=== PATIENT | female | born 1950 | race African-American/Black ===

== ENCOUNTER 2016-02-26 20:58 | Emergency (ER) | payer OTHER ==
[~2016-02-26] VITALS: Ht 149.9 cm; Wt 48.0 kg
[~2016-02-26 20:58] MED LIST: ADVA100A INH; ALBU6.7H INH; ALBUAER3 INH; AMLO2.5T PO; ASPI1TAB69 PO; ASPI81CH37 CHEW; AZIT500T2 PO; DIGO0.12 PO; DIGO0.25 PO; HYDR-3533 PO; IPRAAER INH; LANTINJ SQ; LANTUS2P SQ; LISI-515 PO; MEDR4PAK PO; PANT20 PO; PRED20 PO; SIMV20TA PO; VALT1TAB PO
[2016-02-26 21:01] VITALS: RESP 28; O2SAT 88
[2016-02-26] MEDS ORDERED: methylPREDNISolone SOD SUCC 125 MG/2 ML VIAL IVP ONE (21:15)
[2016-02-26] MEDS ORDERED: SODIUM CHLORIDE 0.9% FLUSH 5 ML FLUSH IVF PRN (21:15)
--- NOTE | 2016-02-26 21:15 | PD ---
HPI Chief Complaint: Respiratory Symptoms Time Seen by Provider: 21:10 Travel History International Travel<30 days: No Contact w/Intl Traveler<30days: No Traveled to known affect area: No History of Present Illness HPI 65-year-old Afro-[place] female long-standing COPD continues to smoke, presents the emergency department with repeat increased shortness of breath and wheezing over the past several days. Patient was last seen on January 31 and treated with prednisone, of-year-old inhaler, and azithromycin. Patient denies fever, chills, chest pain, or productive cough. Patient states she has a nebulizer at home that she's been using more frequently. Patient has a history of atrial fibrillation for which she takes digoxin for. Patient denies nausea, vomiting, or upper respiratory symptoms. PFSH Past Medical History Hx Anticoagulant Therapy: Yes (ASA) Arthritis: Yes Asthma: No Autoimmune Disease: No Blood Disorders: No Anxiety: No Depression: No Heart Rhythm Problems: Yes Cancer: No Cardiovascular Problems: Yes (HTN) High Cholesterol: Yes Chemotherapy: No Chest Pain: Yes Congestive Heart Failure: No COPD: Yes Cerebrovascular Accident: No Coronary Artery Disease: Yes Diabetes: Yes Diminished Hearing: No Endocrine: Yes Gastrointestinal Disorders: Yes (OCCASIONAL NAUSEA/VOMITING) GERD: Yes Genitourinary: No Headaches: Yes Hiatal Hernia: No Hypertension: Yes Immune Disorder: No Implanted Vascular Access Dvce: Yes Kidney Stones: No Musculoskeletal: Yes (ARTHRITIS/LEFT HIP VASCULAR NECROSIS) Neurologic: Yes Psychiatric: No Reproductive: No Respiratory: Yes (COPD) Immunizations Current: No Migraines: No Pneumonia: Yes Radiation Therapy: No Renal Failure: No Seizures: No Sleep Apnea: Yes Thyroid Disease: No Ulcer: No ?: Not Menopausal: Yes : 3 Para: 3 Miscarriage: 0 : 0 Past Surgical History Abdominal Surgery: No AICD: No Arteriovenous Shunt: No Cardiac Surgery: No Section: Yes Ear Surgery: No Endocrine Surgery: No Eye Surgery: No Genitourinary Surgery: No Gynecologic Surgery: Yes (cycst removed) Hysterectomy: Yes (HTN) Insulin Pump: No Joint Replacement: Yes (LEFT HIP) Oral Surgery: No Pacemaker: No Thoracic Surgery: Yes Other Surgery: Yes (LEFT HIP REPLACEMENT, LIGAMENTS IN FINGER, R CHEST TUBE ) Family History Family Hypercholesterolemia: Yes Social History Alcohol Use: No Tobacco Use: Yes (1/2 pack a day) Substance Use: No Allergies-Medications (Allergen,Severity, Reaction): Coded Allergies: Hctz (Verified Adverse Reaction, Mild, Nausea and Malaise, 02/26/16) Pt does not want to take Reported Meds & Prescriptions Reported Meds & Active Scripts Active Prednisone 20 Mg Tab 20 Mg PO BID Albuterol Neb (Albuterol Sulfate) 2.5 Mg/0.5 Ml Neb 2.5 Mg NEB QID NEB Note: The Albuterol Sulfate Inhalation Solution is concentrated and must be diluted. Read complete instructions carefully before using. Ipratropium Neb (Ipratropium [place]) 0.5 Mg/2.5 Ml Amp 0.5 Mg NEB Q6HR NEB PRN Azithromycin 500 Mg Tab 500 Mg PO DAILY Lortab (Hydrocodone-Acetaminophen) 5-325 Mg Tab 1 Tab PO Q6H PRN Reported Simvastatin 20 Mg Tab 20 Mg PO DAILY Protonix (Pantoprazole Sodium) 20 Mg Tab 20 Mg PO DAILY Lisinopril 20 Mg Tab 20 Mg PO DAILY Lantus Solostar Pen Inj (Insulin Glargine) 300 Unit/3 Ml Pen 1 Units SQ Digoxin 0.25 Mg Tab 0.25 Mg PO DAILY Combivent Respimat Inh (Ipratropium-Albuterol Inh) 20-100 Custodial/Act Aero 1 Puff INH QID Aspirin Low Dose (Aspirin) 81 Mg Chew 81 Mg CHEW DAILY Proventil Hfa 6.7 GM Inh (Albuterol Sulfate) 90 Mcg/Act Aer 2 Puff INH Q6H PRN Advair Diskus Inh (Fluticasone-Salmeterol Inh) 100-50 Mcg/Blist Aer 1 Puff INH BID Rinse mouth after use. Amlodipine (Amlodipine Besylate) 2.5 Mg Tab 2.5 Mg PO DAILY Lantus Inj (Insulin Glargine) 1,000 Unit/10 Ml Vial 10 Units SQ HS Review of Systems General / Constitutional: No: Fever, Chills Eyes: No: Visual changes HENT: No: Headaches Cardiovascular: No: Chest Pain or Discomfort Respiratory: No: Shortness of Breath Gastrointestinal: No: Abdominal Pain Genitourinary: No: Dysuria Musculoskeletal: No: Pain Skin: No Rash Neurologic: No: Weakness Psychiatric: No: Depression Endocrine: No: Polydipsia Hematologic/Lymphatic: No: Easy Bruising Physical Exam Narrative GENERAL: Patient appears in mild to moderate respiratory distress. SKIN: Warm and dry. Normal color. Mild poor turgor. HEAD: Atraumatic. Normocephalic. EYES: Pupils equal and round. No scleral icterus. No injection or drainage. ENT: No nasal bleeding or discharge. Mucous membranes pink and moist. Pharynx is clear. Airway is patent. NECK: Trachea midline. No JVD. Supple and nontender. CARDIOVASCULAR: Regular rate and rhythm. No murmurs appreciated. RESPIRATORY: No accessory muscle use. Moderate diffuse expiratory wheezes to auscultation. Breath sounds equal bilaterally. GASTROINTESTINAL: Abdomen soft, non-tender, nondistended. Hepatic and splenic margins not palpable. MUSCULOSKELETAL: Extremities without clubbing, cyanosis, or edema. No obvious deformities. NEUROLOGICAL: Awake and alert. No obvious cranial nerve deficits. Motor grossly within normal limits. Five out of 5 muscle strength in the arms and legs. Normal speech. PSYCHIATRIC: Appropriate mood and affect; insight and judgment normal. Data Data Last Documented VS Vital Signs Date Time Temp Pulse Resp B/P Pulse Ox O2 Delivery O2 Flow Rate FiO2 02/26/16 21:43 18 97 Aerosol Mask Orders Complete Blood Count With Diff (02/26/16 21:15) Comprehensive Metabolic Panel (02/26/16 21:15) Act Partial Throm Time (Ptt) (02/26/16 21:15) Prothrombin Time / Inr (Pt) (02/26/16 21:15) Ckmb (Isoenzyme) Profile (02/26/16 21:15) Troponin I (02/26/16 21:15) Iv Access Insert/Monitor (02/26/16 21:15) Electrocardiogram (02/26/16 21:15) Ecg Monitoring (02/26/16 21:15) Oximetry (02/26/16 21:15) Oxygen Administration (02/26/16 21:15) Chest, Single Ap (02/26/16 21:15) Sodium Chloride 0.9% Flush (Ns Flush) (02/26/16 21:15) Methylprednisolone So Succ Inj (Solumedr (02/26/16 21:15) Albuterol-Ipratropium Neb (Duoneb Neb) (02/26/16 21:15) Digoxin (02/26/16 21:15) Azithromycin (Zithromax) (02/27/16 09:00) Azithromycin (Zithromax) (02/26/16 22:30) CKMB (02/26/16 21:20) CKMB% (02/26/16 21:20) Labs Laboratory Tests Test 02/26/16 21:20 White Blood Count 8.2 TH/MM3 Red Blood Count 4.24 MIL/MM3 Hemoglobin 11.8 GM/DL Hematocrit 36.8 % Mean Corpuscular Volume 86.8 FL Mean Corpuscular Hemoglobin 27.8 PG Mean Corpuscular Hemoglobin 32.1 % Concent Red Cell Distribution Width 16.2 % Platelet Count 379 TH/MM3 Mean Platelet Volume 9.7 FL Neutrophils (%) (Auto) 57.4 % Lymphocytes (%) (Auto) 24.1 % Monocytes (%) (Auto) 9.0 % Eosinophils (%) (Auto) 8.6 % Basophils (%) (Auto) 0.9 % Neutrophils # (Auto) 4.7 TH/MM3 Lymphocytes # (Auto) 2.0 TH/MM3 Monocytes # (Auto) 0.7 TH/MM3 Eosinophils # (Auto) 0.7 TH/MM3 Basophils # (Auto) 0.1 TH/MM3 CBC Comment DIFF FINAL Differential Comment Prothrombin Time 10.2 SEC Prothromb Time International 0.9 RATIO Ratio Activated Partial 23.6 SEC Thromboplast Time Sodium Level 142 MEQ/L Potassium Level 3.9 MEQ/L Chloride Level 104 MEQ/L Carbon Dioxide Level 31.5 MEQ/L Anion Gap 7 MEQ/L Blood Urea Nitrogen 10 MG/DL Creatinine 0.82 MG/DL Estimat Glomerular Filtration 85 ML/MIN Rate Random Glucose 113 MG/DL Calcium Level 9.2 MG/DL Total Bilirubin 0.2 MG/DL Aspartate Amino Transf 15 U/L (AST/SGOT) Alanine Aminotransferase 23 U/L (ALT/SGPT) Alkaline Phosphatase 96 U/L Total Creatine Kinase 150 U/L Creatine Kinase MB 1.8 NG/ML Troponin I LESS THAN 0.02 NG/ML Total Protein 7.5 GM/DL Albumin 4.0 GM/DL Digoxin Level 0.6 NG/ML MDM Medical Decision Making Medical Screen Exam Complete: Yes Emergency Medical Condition: Yes Differential Diagnosis Bronchitis. Pneumonia. COPD flare with exacerbation. Wheezing. Shortness of breath. Narrative Course Patient is felt to be in mild to moderate respiratory distress although oxygenating at 97%. Labs ordered including CBC, CMP, chest x-ray, digoxin level. EKG is performed. IV access is obtained patient is given 125 mg of slight Medrol IV. Patient is given DuoNeb 3. Patient is given azithromycin 500 mg by mouth. Labs and chest x-ray are unremarkable. Digoxin level somewhat low. EKG shows no acute findings. Upon reevaluation after the above the patient is improved. Breath sounds are improved, and oxygenation is 98% on room air. Patient is stable to be discharged home. Patient is given prescription for prednisone 20 mg twice a day 7 days. Patient is given refills of her albuterol and ipratropium bromide nebulizers. Patient is to take azithromycin 500 mg once daily for the next 3 days. Patient is encouraged to quit smoking immediately. Patient follow with her primary care physician or return to emergency Department with worsening symptoms. Diagnosis Primary Impression: COPD exacerbation Additional Impression: Acute bronchitis Qualified Code: J20.9 - Acute bronchitis, unspecified organism Referrals: Primary Care Physician Patient Instructions: COPD (Chronic Obstructive Pulmonary Disease) (ED), General Instructions, How to Stop Smoking (ED) Additional Instructions: Patient is stable to be discharged home. Patient is given prescription for prednisone 20 mg twice a day 7 days. Patient is given refills of her albuterol and ipratropium bromide nebulizers. Patient is to take azithromycin 500 mg once daily for the next 3 days. Patient is encouraged to quit smoking immediately. Patient follow with her primary care physician or return to emergency Department with worsening symptoms. Med/Other Pt SpecificInfo: Prescription(s) given Scripts Prednisone 20 Mg Tab20 Mg PO BID #14 TAB Prov:Delphine Kirkpatrick MD 02/26/16 Albuterol Neb 2.5 Mg/0.5 Ml Neb2.5 Mg NEB QID NEB #120 NEBULE Ref 0 Note: The Albuterol Sulfate Inhalation Solution is concentrated and must be diluted. Read complete instructions carefully before using. Prov:Delphine Kirkpatrick MD 02/26/16 Ipratropium Neb 0.5 Mg/2.5 Ml Amp0.5 Mg NEB Q6HR NEB PRN (SHORTNESS OF BREATH) # 120 NEBULE Ref 0 Prov:Delphine Kirkpatrick MD 02/26/16 Azithromycin 500 Mg [id number] Mg PO DAILY #3 TAB Ref 0 Prov:Delphine Kirkpatrick MD 02/26/16 Disposition: 01 DISCHARGE HOME Condition: Stable Vasile Rodriguez Feb 26, 2016 21:14
[2016-02-26] MEDS: RESP: ALBUTEROL 2.5 MG/IPRATROPIUM 0.5 MG NEB (SCH) INH ×2 (21:27→21:28)
[2016-02-26 21:43] VITALS: RESP 18; O2SAT 97
--- NOTE | 2016-02-26 21:59 | RADRPT ---
EXAM DATE/TIME: 02/26/2016 21:45 [facility] COMPARISON: CHEST SINGLE AP, February 02, 2016, 0:46. INDICATIONS : Shortness of breath. MEDICAL HISTORY : Chronic obstructive pulmonary disease. Emphysema. Bronchitis. SURGICAL HISTORY : None. ENCOUNTER: Initial ACUITY: 2 days PAIN SCORE: 0/10 LOCATION: chest FINDINGS: A single view of the chest demonstrates the lungs to be symmetrically aerated without evidence of mas s, infiltrate or effusion. The lungs do appear hyperinflated. The cardiomediastinal contours are unr emarkable. Osseous structures are intact. CONCLUSION: No acute abnormality is seen. The lungs are hyperinflated. Wolf Acevedo MD on February 26, 2016 at 21:56 Board Certified Radiologist. This report was verified electronically.
[2016-02-26 22:00] LABS: APTT (PATIENT) 23.6 SEC (24.3-30.1); INTERNATIONAL NORMALIZED RATIO 0.9 RATIO; PROTHROMBIN TIME - PATIENT 10.2 SEC (9.8-11.6)
[2016-02-26 22:12] LABS: AUTOMATED NEUTROPHIL # 4.7 TH/MM3 (1.8-7.7); BASOPHIL # 0.1 TH/MM3 (0-0.2); BASOPHIL % 0.9 % (0.0-2.0); EOSINOPHIL # 0.7 TH/MM3 (0-0.4); EOSINOPHIL % 8.6 % (0.0-4.0); HEMATOCRIT 36.8 % (35.0-46.0); HEMO FLAGS DIFF FINAL; LYMPH % 24.1 % (9.0-44.0); MEAN CELL VOLUME 86.8 FL (80.0-100.0); MEAN CORPUSCULAR HEMOGLOBIN 27.8 PG (27.0-34.0); MEAN CORPUSCULAR HGB CONC 32.1 % (32.0-36.0); NEUT % 57.4 % (16.0-70.0); PLATELET COUNT 379 TH/MM3 (150-450); RED BLOOD COUNT 4.24 MIL/MM3 (4.00-5.30); RED CELL DISTRIBUTION WIDTH 16.2 % (11.6-17.2); WHITE BLOOD COUNT 8.2 TH/MM3 (4.0-11.0)
[2016-02-26 22:14] LABS: ANION GAP 7 MEQ/L (5-15); AST (GOT) 15 U/L (15-37); BICARBONATE 31.5 MEQ/L (21.0-32.0); BLOOD UREA NITROGEN 10 MG/DL (7-18); CHLORIDE 104 MEQ/L (98-107); GLOMERULAR FILTRATION RATE 85 ML/MIN (>89); POTASSIUM 3.9 MEQ/L (3.5-5.1); SODIUM (NA) 142 MEQ/L (136-145)
[2016-02-26 22:28] LABS: ALKALINE PHOSPHATASE 96 U/L (45-117); ALT (GPT) 23 U/L (10-53); CREATINE KINASE 150 U/L (26-192); DIGOXIN 0.6 NG/ML (0.8-2.0); TOTAL BILIRUBIN ADULT 0.2 MG/DL (0.2-1.0)
[2016-02-26] MEDS ORDERED: AZITHROMYCIN 250 MG TAB PO ONE (22:30)
[2016-02-26 22:41] LABS: CKMB 1.8 NG/ML (0.5-3.6)
[2016-02-26] MEDS ORDERED: AZIT500T2 PO (23:01)
[2016-02-26] MEDS ORDERED: IPRA0.02 NEB (23:01)
[2016-02-26] MEDS ORDERED: ALBU.5I NEB (23:01)
[2016-02-26] MEDS ORDERED: PRED20 PO (23:01)
[2016-02-27] MEDS ORDERED: AZITHROMYCIN 250 MG TAB PO SCH (09:00)
--- NOTE | 2016-02-27 14:22 | EKG ---
Date Performed: 02/26/2016 Time Performed: 22:12:03 PTAGE: 65 years EKG: SINUS TACHYCARDIA ABNORMAL RHYTHM ECG Compared to prior tracing no significant change PREVIOUS TRACING 02/02/2016 @02.20.21 DOCTOR: Bairon Capellan Interpretating Date/Time 02/27/2016 14:20:50
== END 2016-02-26 23:58 | disposition home or self-care (01) ==
LOC: NEPE 20:58
DX: J44.1 Chronic obstructive pulmonary disease with (acute) exacerbation (principal); J44.0 Chronic obstructive pulmonary disease with (acute) lower respiratory infection; J20.9 Acute bronchitis, unspecified; F17.200 Nicotine dependence, unspecified, uncomplicated; I48.91 Unspecified atrial fibrillation
CPT/HCPCS: 71010; 80053; 80162; 82550; 82552; 84484; 85025; 85610; 85730; 93005; 94640; 94664; 96374; 99284; J2930

== ENCOUNTER 2016-03-13 15:05 | Emergency (ER) | payer OTHER ==
[~2016-03-13] VITALS: Ht 165.1 cm; Wt 50.0 kg
[~2016-03-13 15:05] MED LIST changes: +ALBU.5I NEB; -ALBUAER3 INH; -ASPI1TAB69 PO; -DIGO0.12 PO; +IPRA0.02 NEB; -MEDR4PAK PO; -VALT1TAB PO
[2016-03-13 15:07] VITALS: BP 155/67; PULSE 108; RESP 16; TEMP 98; O2SAT 95
[2016-03-13 15:47] VITALS: BP 109/70; PULSE 101; RESP 20; O2SAT 97
[2016-03-13] MEDS ORDERED: SODIUM CHLORIDE 0.9% FLUSH 5 ML FLUSH IVF PRN (16:00)
[2016-03-13] MEDS: RESP: ALBUTEROL 2.5 MG/IPRATROPIUM 0.5 MG NEB (SCH) INH ×2 (16:00→16:43)
[2016-03-13] MEDS ORDERED: methylPREDNISolone SOD SUCC 125 MG/2 ML VIAL IVP ONE (16:00)
[2016-03-13 16:11] LABS: AUTOMATED NEUTROPHIL # 5.5 TH/MM3 (1.8-7.7); BASOPHIL # 0.1 TH/MM3 (0-0.2); BASOPHIL % 0.7 % (0.0-2.0); EOSINOPHIL # 0.3 TH/MM3 (0-0.4); HEMATOCRIT 34.9 % (35.0-46.0); HEMO FLAGS DIFF FINAL; LYMPH % 21.3 % (9.0-44.0); LYMPHOCYTE # 1.8 TH/MM3 (1.0-4.8); MEAN CELL VOLUME 85.2 FL (80.0-100.0); MEAN CORPUSCULAR HEMOGLOBIN 28.5 PG (27.0-34.0); MEAN CORPUSCULAR HGB CONC 33.5 % (32.0-36.0); MONO % 8.6 % (0.0-8.0); NEUT % 65.4 % (16.0-70.0); PLATELET COUNT 298 TH/MM3 (150-450); WHITE BLOOD COUNT 8.4 TH/MM3 (4.0-11.0)
[2016-03-13 16:25] VITALS: O2SAT 98
--- NOTE | 2016-03-13 16:32 | RADRPT ---
EXAM DATE/TIME: 03/13/2016 16:10 [facility] COMPARISON: CHEST SINGLE AP, February 26, 2016, 21:45. INDICATIONS : Short of breath MEDICAL HISTORY : Hypertension. Chronic obstructive pulmonary disease. Emphysema. Bronchitis SURGICAL HISTORY : None. ENCOUNTER: Initial ACUITY: 2 weeks PAIN SCORE: 0/10 LOCATION: Bilateral chest FINDINGS: A single view of the chest demonstrates the lungs to be symmetrically aerated without evidence of mas s, infiltrate or effusion. The cardiomediastinal contours are unremarkable. Osseous structures are intact. CONCLUSION: The lungs are clear. No evidence of pneumothorax. Alex Powell MD on March 13, 2016 at 16:30 Board Certified Radiologist. This report was verified electronically.
[2016-03-13 16:34] LABS: ALT (GPT) 23 U/L (10-53); ANION GAP 7 MEQ/L (5-15); AST (GOT) 13 U/L (15-37); BICARBONATE 29.3 MEQ/L (21.0-32.0); BLOOD UREA NITROGEN 9 MG/DL (7-18); CHLORIDE 103 MEQ/L (98-107); GLOMERULAR FILTRATION RATE 85 ML/MIN (>89); POTASSIUM 4.2 MEQ/L (3.5-5.1); SODIUM (NA) 139 MEQ/L (136-145)
[2016-03-13 16:38] LABS: ALKALINE PHOSPHATASE 91 U/L (45-117); TOTAL BILIRUBIN ADULT 0.2 MG/DL (0.2-1.0)
--- NOTE | 2016-03-13 16:51 | PD ---
HPI Chief Complaint: Respiratory Symptoms Time Seen by Provider: 16:48 Travel History International Travel<30 days: No Contact w/Intl Traveler<30days: No Traveled to known affect area: No History of Present Illness HPI 65-year-old female with a history of hypertension, hyperlipidemia, COPD who is still smoking presents to the emergency department for evaluation of shortness of breath for the past 3 days. States that she has been using her inhalers and nebulizers with minimal improvement of symptoms. States that she thinks the weather change is what is aggravated her symptoms. States that she just finished a round of steroids one week ago, states that her symptoms were improved while taking the steroids but seemed to have worsened after the steroids were finished. She does have a dry nonproductive cough. Denies fever , chills, nausea, vomiting, chest pain, lightheadedness, dizziness, swelling of the extremities, abdominal pain. PCP is Dr. Sampson. No other complaints. PFSH Past Medical History Hx Anticoagulant Therapy: Yes (aspirin) Arthritis: Yes Asthma: No Autoimmune Disease: No Blood Disorders: No Anxiety: No Depression: No Heart Rhythm Problems: Yes Cancer: No Cardiovascular Problems: Yes (HTN) High Cholesterol: Yes Chemotherapy: No Chest Pain: Yes Congestive Heart Failure: No COPD: Yes Cerebrovascular Accident: No Coronary Artery Disease: Yes Diabetes: Yes Patient Takes Glucophage: No Diminished Hearing: No Endocrine: Yes Gastrointestinal Disorders: Yes (OCCASIONAL NAUSEA/VOMITING) GERD: Yes Genitourinary: No Headaches: Yes Hiatal Hernia: No Hypertension: Yes Immune Disorder: No Implanted Vascular Access Dvce: Yes Kidney Stones: No Musculoskeletal: Yes (ARTHRITIS/LEFT HIP VASCULAR NECROSIS) Neurologic: Yes Psychiatric: No Reproductive: No Respiratory: Yes (copd) Immunizations Current: No Migraines: No Pneumonia: Yes Radiation Therapy: No Renal Failure: No Seizures: No Sleep Apnea: Yes Thyroid Disease: No Ulcer: No Menopausal: Yes : 3 Para: 3 Miscarriage: 0 : 0 Past Surgical History Abdominal Surgery: No AICD: No Arteriovenous Shunt: No Cardiac Surgery: No Section: Yes Ear Surgery: No Endocrine Surgery: No Eye Surgery: No Genitourinary Surgery: No Gynecologic Surgery: Yes (cycst removed) Hysterectomy: Yes (HTN) Insulin Pump: No Joint Replacement: Yes (LEFT HIP) Oral Surgery: No Pacemaker: No Thoracic Surgery: Yes Other Surgery: Yes (LEFT HIP REPLACEMENT, LIGAMENTS IN FINGER, R CHEST TUBE ) Family History Family Hypercholesterolemia: Yes Social History Alcohol Use: No Tobacco Use: Yes Substance Use: No Allergies-Medications (Allergen,Severity, Reaction): Coded Allergies: Hctz (Verified Adverse Reaction, Mild, Nausea and Malaise, 02/26/16) Pt does not want to take Reported Meds & Prescriptions Reported Meds & Active Scripts Active Prednisone 20 Mg Tab 20 Mg PO BID 7 Days Albuterol Neb (Albuterol Sulfate) 2.5 Mg/0.5 Ml Neb 2.5 Mg NEB QID NEB Note: The Albuterol Sulfate Inhalation Solution is concentrated and must be diluted. Read complete instructions carefully before using. Ipratropium Neb (Ipratropium [place]) 0.5 Mg/2.5 Ml Amp 0.5 Mg NEB Q6HR NEB PRN Reported Simvastatin 20 Mg Tab 20 Mg PO DAILY Protonix (Pantoprazole Sodium) 20 Mg Tab 20 Mg PO DAILY Lisinopril 20 Mg Tab 20 Mg PO DAILY Lantus Solostar Pen Inj (Insulin Glargine) 300 Unit/3 Ml Pen 1 Units SQ Digoxin 0.25 Mg Tab 0.25 Mg PO DAILY Combivent Respimat Inh (Ipratropium-Albuterol Inh) 20-100 Shelter/Act Aero 1 Puff INH QID Aspirin Low Dose (Aspirin) 81 Mg Chew 81 Mg CHEW DAILY Proventil Hfa 6.7 GM Inh (Albuterol Sulfate) 90 Mcg/Act Aer 2 Puff INH Q6H PRN Advair Diskus Inh (Fluticasone-Salmeterol Inh) 100-50 Mcg/Blist Aer 1 Puff INH BID Rinse mouth after use. Amlodipine (Amlodipine Besylate) 2.5 Mg Tab 2.5 Mg PO DAILY Lantus Inj (Insulin Glargine) 1,000 Unit/10 Ml Vial 10 Units SQ HS Review of Systems Except as stated in HPI: all other systems reviewed are Neg Physical Exam Narrative GENERAL: Well-nourished and well-developed pleasant female patient in no acute distress who is nontoxic appearing. SKIN: Warm and dry. HEAD: Normocephalic and atraumatic. EYES: No injection, drainage, or hyphema noted. PERRLA. EOMI. ENT: No nasal drainage noted. Oropharynx is clear. NECK: Supple and the trachea is midline. CARDIOVASCULAR: Regular rate and rhythm. RESPIRATORY: Decreased breath sounds throughout. No accessory muscle use or crackles. GASTROINTESTINAL: Abdomen is soft, non-tender, and nondistended. MUSCULOSKELETAL: No obvious deformities, swelling, cyanosis, or ecchymosis is present throughout the upper and lower extremities. Patient has full range of motion without any signs of neurovascular compromise. NEUROLOGICAL: Awake, alert, and oriented. Normal speech and gait. Cranial nerves are grossly intact. Data Data Last Documented VS Vital Signs Date Time Temp Pulse Resp B/P Pulse Ox O2 Delivery O2 Flow Rate FiO2 03/13/16 18:07 113 20 125/67 95 03/13/16 16:25 Room Air 03/13/16 15:07 98.0 Orders Complete Blood Count With Diff (03/13/16 15:49) Comprehensive Metabolic Panel (03/13/16 15:49) Troponin I (03/13/16 15:49) Influenzae A/B Antigen (03/13/16 15:49) Iv Access Insert/Monitor (03/13/16 15:49) Electrocardiogram (03/13/16 15:49) Ecg Monitoring (03/13/16 15:49) Oximetry (03/13/16 15:49) Chest, Single Ap (03/13/16 15:49) Sodium Chloride 0.9% Flush (Ns Flush) (03/13/16 16:00) Methylprednisolone So Succ Inj (Solumedr (03/13/16 16:00) Albuterol-Ipratropium Neb (Duoneb Neb) (03/13/16 16:00) Labs Laboratory Tests Test 03/13/16 15:59 White Blood Count 8.4 TH/MM3 Red Blood Count 4.10 MIL/MM3 Hemoglobin 11.7 GM/DL Hematocrit 34.9 % Mean Corpuscular Volume 85.2 FL Mean Corpuscular Hemoglobin 28.5 PG Mean Corpuscular Hemoglobin 33.5 % Concent Red Cell Distribution Width 16.0 % Platelet Count 298 TH/MM3 Mean Platelet Volume 9.7 FL Neutrophils (%) (Auto) 65.4 % Lymphocytes (%) (Auto) 21.3 % Monocytes (%) (Auto) 8.6 % Eosinophils (%) (Auto) 4.0 % Basophils (%) (Auto) 0.7 % Neutrophils # (Auto) 5.5 TH/MM3 Lymphocytes # (Auto) 1.8 TH/MM3 Monocytes # (Auto) 0.7 TH/MM3 Eosinophils # (Auto) 0.3 TH/MM3 Basophils # (Auto) 0.1 TH/MM3 CBC Comment DIFF FINAL Differential Comment Sodium Level 139 MEQ/L Potassium Level 4.2 MEQ/L Chloride Level 103 MEQ/L Carbon Dioxide Level 29.3 MEQ/L Anion Gap 7 MEQ/L Blood Urea Nitrogen 9 MG/DL Creatinine 0.82 MG/DL Estimat Glomerular Filtration 85 ML/MIN Rate Random Glucose 145 MG/DL Calcium Level 9.4 MG/DL Total Bilirubin 0.2 MG/DL Aspartate Amino Transf 13 U/L (AST/SGOT) Alanine Aminotransferase 23 U/L (ALT/SGPT) Alkaline Phosphatase 91 U/L Troponin I LESS THAN 0.02 NG/ML Total Protein 6.7 GM/DL Albumin 3.4 GM/DL MDM Medical Decision Making Medical Screen Exam Complete: Yes Emergency Medical Condition: Yes Differential Diagnosis COPD exacerbation versus pneumonia versus ACS versus other Narrative Course 65-year-old female with a history of COPD presents to the emergency department for evaluation of source of breath for 3 days. Patient is afebrile. She is initially slightly tachycardic with heart rate of 101 bpm. Otherwise vital signs are stable. Oxygen saturation is 98% on room air. Patient is given 3 DuoNeb treatments and Solu-Medrol 125 mg IV. EKG shows sinus tachycardia with a ventricular rate of 103 bpm, no acute ST elevations or depressions. CBC is unremarkable. CMP is unremarkable. Troponin is less than 0.02. Influenza swab was negative. Chest x-ray is negative for acute abnormalities. After nebulizers and steroids the patient reports improvement of symptoms. Lungs are clear to auscultation. Oxygen saturation is remained above 95% on room air. Patient appears well overall. This is a mild COPD exacerbation. We' ll give her another round of steroids. She does have any fever or productive cough suggesting the need for antibiotics, besides she just finished antibiotics last week. Stressed the importance of smoking cessation. Advised follow-up with a playroom attendant or her primary care provider. Patient verbalizes understanding and agreement with treatment plan. Diagnosis Primary Impression: COPD exacerbation Referrals: Primary Care Physician Patient Instructions: COPD (Chronic Obstructive Pulmonary Disease) (ED), General Instructions Additional Instructions: Use nebulizers every 4 hours. Take medication as prescribed with food and a full glass of water. Follow-up with your Primary Care Physician. Return to the ED for any acute worsening of symptoms. Med/Other Pt SpecificInfo: Prescription(s) given Scripts Prednisone 20 Mg Tab20 Mg PO BID 7 Days Ref 0 Prov:Reddy Armendariz MD 03/13/16 Disposition: 01 DISCHARGE HOME Condition: Stable Melissa Terry Mar 13, 2016 16:51
[2016-03-13] MEDS ORDERED: PRED20 PO (17:44)
--- NOTE | 2016-03-13 17:51 | EKG ---
Date Performed: 03/13/2016 Time Performed: 15:56:40 PTAGE: 65 years EKG: SINUS TACHYCARDIA ABNORMAL RHYTHM ECG PREVIOUS TRACING : 02/26/2016 22.12 No significant change from previous tracing noted. DOCTOR: Ivan Flannery Interpretating Date/Time 03/13/2016 17:50:25
[2016-03-13 18:07] VITALS: BP 125/67
== END 2016-03-13 18:19 | disposition home or self-care (01) ==
LOC: NEPE 15:05
DX: J44.1 Chronic obstructive pulmonary disease with (acute) exacerbation (principal); I10 Essential (primary) hypertension; R05 Cough; E78.00 Pure hypercholesterolemia, unspecified; E11.9 Type 2 diabetes mellitus without complications; Z72.0 Tobacco use; R94.31 Abnormal electrocardiogram [ECG] [EKG]
CPT/HCPCS: 71010; 80053; 84484; 85025; 87804; 93005; 94640; 94664; 96374; 99285; J2930

== ENCOUNTER 2016-05-12 17:47 | Observation (INO) | payer OTHER ==
[~2016-05-12] VITALS: Ht 165.1 cm; Wt 46.0 kg
[~2016-05-12 17:47] MED LIST changes: -AZIT500T2 PO; -HYDR-3533 PO
[2016-05-12 17:51] VITALS: BP 176/77; PULSE 115; RESP 28; TEMP 97.9; O2SAT 93
[2016-05-12 18:01] VITALS: PULSE 104; RESP 26; O2SAT 96
--- NOTE | 2016-05-12 18:08 | PD ---
Physical Exam Date Seen by Provider: May 12, 2016 Time Seen by Provider: 18:02 Narrative Patient seen in triage with one week history of increasing SOB and Wheezing. Patient has Hx. COPD treated with Advair, Combivent, and Nebulizers. Patient was treated with prednisone and Azithromycin 2 weeks ago with some improvement, but now worse again. SOB worse with trying to sleep and with exertion. Patient denies Fever and chest pain. Vital Signs Stable with O2 Sat of 96% on room air. Data Data Last Documented VS Vital Signs Date Time Temp Pulse Resp B/P Pulse Ox O2 Delivery O2 Flow Rate FiO2 05/12/16 17:51 97.9 115 28 176/77 93 Room Air [facility] Medical Record Reviewed: Yes Supervised Visit with RADHA: Yes Condition: Stable Vasile Rodriguez May 12, 2016 18:08
[2016-05-12] MEDS ORDERED: methylPREDNISolone SOD SUCC 125 MG/2 ML VIAL IVP ONE (21:30)
[2016-05-12] MEDS ORDERED: SODIUM CHLORIDE 0.9% FLUSH 10 ML FLUSH IVF PRN (21:30)
[2016-05-12 21:31] VITALS: O2SAT 99
[2016-05-12] MEDS: RESP: ALBUTEROL 2.5 MG/IPRATROPIUM 0.5 MG NEB (SCH) INH (21:37)
--- NOTE | 2016-05-12 22:08 | RADRPT ---
EXAM DATE/TIME: 05/12/2016 21:28 [facility] COMPARISON: CHEST SINGLE AP, March 13, 2016, 16:10. INDICATIONS : Shortness of breath x1 day. Pt denies any chest pains. Pt is a 1/2 ppd smoker. MEDICAL HISTORY : Chronic obstructive pulmonary disease. Emphysema. SURGICAL HISTORY : None. ENCOUNTER: Initial ACUITY: 1 day PAIN SCORE: 0/10 LOCATION: Bilateral chest FINDINGS: A single view of the chest demonstrates the lungs to be symmetrically aerated without evidence of mas s, infiltrate or effusion. The cardiomediastinal contours are unremarkable. Osseous structures are intact. CONCLUSION: No acute disease. Fredo Perez MD on May 12, 2016 at 22:06 Board Certified Radiologist. This report was verified electronically.
[2016-05-12 22:19] LABS: AUTOMATED NEUTROPHIL # 8.1 TH/MM3 (1.8-7.7); BASOPHIL # 0.1 TH/MM3 (0-0.2); BASOPHIL % 0.9 % (0.0-2.0); EOSINOPHIL # 0.6 TH/MM3 (0-0.4); HEMATOCRIT 39.9 % (35.0-46.0); HEMO FLAGS DIFF FINAL; LYMPHOCYTE # 3.1 TH/MM3 (1.0-4.8); MEAN CELL VOLUME 82.9 FL (80.0-100.0); MEAN CORPUSCULAR HEMOGLOBIN 25.9 PG (27.0-34.0); MEAN CORPUSCULAR HGB CONC 31.2 % (32.0-36.0); MONO % 8.4 % (0.0-8.0); NEUT % 61.7 % (16.0-70.0); PLATELET COUNT 316 TH/MM3 (150-450); RED BLOOD COUNT 4.81 MIL/MM3 (4.00-5.30); RED CELL DISTRIBUTION WIDTH 16.6 % (11.6-17.2); WHITE BLOOD COUNT 13.1 TH/MM3 (4.0-11.0)
--- NOTE | 2016-05-12 22:20 | PD ---
HPI Chief Complaint: Respiratory Symptoms Time Seen by Provider: 21:28 Travel History International Travel<30 days: No Contact w/Intl Traveler<30days: No Traveled to known affect area: No History of Present Illness HPI 65-year-old female with COPD he arrives with shortness of breath. She has had it for several hours at least. She used 4 nebulizer treatments at home. Her last treatment was just prior to ER arrival. She has been coughing. She denies chest pain. In the last one hour the shortness of breath became much worse. She reports finishing a course of steroids about one week ago. She denies fever. She does not require oxygen at home. The patient is a smoker. PFSH Past Medical History Hx Anticoagulant Therapy: Yes (aspirin) Arthritis: Yes Asthma: No Autoimmune Disease: No Blood Disorders: No Anxiety: No Depression: No Heart Rhythm Problems: Yes Cancer: No Cardiovascular Problems: Yes (HTN) High Cholesterol: Yes Chemotherapy: No Chest Pain: Yes Congestive Heart Failure: No COPD: Yes Cerebrovascular Accident: No Coronary Artery Disease: Yes Diabetes: Yes Patient Takes Glucophage: No Diminished Hearing: No Endocrine: Yes Gastrointestinal Disorders: Yes (OCCASIONAL NAUSEA/VOMITING) GERD: Yes Genitourinary: No Headaches: Yes Hiatal Hernia: No Hypertension: Yes Immune Disorder: No Implanted Vascular Access Dvce: Yes Kidney Stones: No Musculoskeletal: Yes (ARTHRITIS/LEFT HIP VASCULAR NECROSIS) Neurologic: Yes Psychiatric: No Reproductive: No Respiratory: Yes Immunizations Current: No Migraines: No Pneumonia: Yes Radiation Therapy: No Renal Failure: No Seizures: No Sleep Apnea: Yes Thyroid Disease: No Ulcer: No Tetanus Vaccination: > 5 Years ?: Not Menopausal: Yes : 3 Para: 3 Miscarriage: 0 : 0 Past Surgical History Abdominal Surgery: No AICD: No Arteriovenous Shunt: No Cardiac Surgery: No Section: Yes Ear Surgery: No Endocrine Surgery: No Eye Surgery: No Genitourinary Surgery: No Gynecologic Surgery: Yes (cycst removed) Hysterectomy: Yes (HTN) Insulin Pump: No Joint Replacement: Yes (LEFT HIP) Oral Surgery: No Pacemaker: No Thoracic Surgery: Yes Other Surgery: Yes (LEFT HIP REPLACEMENT, LIGAMENTS IN FINGER, R CHEST TUBE ) Family History Family Hypercholesterolemia: Yes Social History Alcohol Use: No Tobacco Use: Yes Substance Use: No Allergies-Medications (Allergen,Severity, Reaction): Coded Allergies: Hctz (Verified Adverse Reaction, Mild, Nausea and Malaise, 02/26/16) Pt does not want to take Reported Meds & Prescriptions Reported Meds & Active Scripts Active Albuterol Neb (Albuterol Sulfate) 2.5 Mg/0.5 Ml Neb 2.5 Mg NEB QID NEB Note: The Albuterol Sulfate Inhalation Solution is concentrated and must be diluted. Read complete instructions carefully before using. Ipratropium Neb (Ipratropium [place]) 0.5 Mg/2.5 Ml Amp 0.5 Mg NEB Q6HR NEB PRN Reported Simvastatin 20 Mg Tab 20 Mg PO BID Protonix (Pantoprazole Sodium) 20 Mg Tab 20 Mg PO DAILY Lisinopril 20 Mg Tab 20 Mg PO DAILY Digoxin 0.25 Mg Tab 0.25 Mg PO DAILY Combivent Respimat Inh (Ipratropium-Albuterol Inh) 20-100 Fdc/Act Aero 1 Puff INH QID Aspirin Low Dose (Aspirin) 81 Mg Chew 81 Mg CHEW DAILY Proventil Hfa 6.7 GM Inh (Albuterol Sulfate) 90 Mcg/Act Aer 2 Puff INH Q6H PRN Advair Diskus Inh (Fluticasone-Salmeterol Inh) 100-50 Mcg/Blist Aer 1 Puff INH BID Rinse mouth after use. Amlodipine (Amlodipine Besylate) 2.5 Mg Tab 2.5 Mg PO DAILY Lantus Inj (Insulin Glargine) 1,000 Unit/10 Ml Vial 14 Units SQ DAILY Review of Systems Except as stated in HPI: all other systems reviewed are Neg Physical Exam Narrative GENERAL: 65-year-old female, emphysematous habitus, speaking in short sentences , tripoding SKIN: Focused skin assessment warm/dry. HEAD: Atraumatic. Normocephalic. EYES: Pupils equal and round. No scleral icterus. No injection or drainage. ENT: No nasal bleeding or discharge. Mucous membranes pink and moist. NECK: Trachea midline. No JVD. CARDIOVASCULAR: Regular rhythm. Tachycardia. RESPIRATORY: Tachypnea. Wheezing bilaterally. GASTROINTESTINAL: Abdomen soft, non-tender, nondistended. Hepatic and splenic margins not palpable. MUSCULOSKELETAL: No obvious deformities. No clubbing. No cyanosis. No edema. NEUROLOGICAL: Awake and alert. No obvious cranial nerve deficits. Motor grossly within normal limits. Normal speech. PSYCHIATRIC: Appropriate mood and affect; insight and judgment normal. Data Data Last Documented VS Vital Signs Date Time Temp Pulse Resp B/P Pulse Ox O2 Delivery O2 Flow Rate FiO2 05/12/16 22:58 122 18 160/67 94 Room Air 05/12/16 21:35 6 05/12/16 17:51 97.9 Vital signs reviewed Orders Complete Blood Count With Diff (05/12/16 21:29) Basic Metabolic Panel (Bmp) (05/12/16 21:29) Iv Access Insert/Monitor (05/12/16 21:29) Electrocardiogram (05/12/16 21:29) Ecg Monitoring (05/12/16 21:29) Oximetry (05/12/16 21:29) Oxygen Administration (05/12/16 21:29) Chest, Single Ap (05/12/16 21:29) Sodium Chloride 0.9% Flush (Ns Flush) (05/12/16 21:30) Methylprednisolone So Succ Inj (Solumedr (05/12/16 21:30) Albuterol-Ipratropium Neb (Duoneb Neb) (05/12/16 21:30) Sodium Chlor 0.9% 1000 Ml Inj (Ns 1000 M (05/12/16 23:00) Albuterol Neb (Albuterol Neb) (05/12/16 23:00) Arterial Blood Gas (Abg) (05/13/16 ) Admit Order (Ed Use Only) (05/13/16 01:04) Labs Laboratory Tests Test 05/12/16 05/13/16 22:10 00:29 White Blood Count 13.1 TH/MM3 Red Blood Count 4.81 MIL/MM3 Hemoglobin 12.4 GM/DL Hematocrit 39.9 % Mean Corpuscular Volume 82.9 FL Mean Corpuscular Hemoglobin 25.9 PG Mean Corpuscular Hemoglobin 31.2 % Concent Red Cell Distribution Width 16.6 % Platelet Count 316 TH/MM3 Mean Platelet Volume 9.6 FL Neutrophils (%) (Auto) 61.7 % Lymphocytes (%) (Auto) 24.0 % Monocytes (%) (Auto) 8.4 % Eosinophils (%) (Auto) 5.0 % Basophils (%) (Auto) 0.9 % Neutrophils # (Auto) 8.1 TH/MM3 Lymphocytes # (Auto) 3.1 TH/MM3 Monocytes # (Auto) 1.1 TH/MM3 Eosinophils # (Auto) 0.6 TH/MM3 Basophils # (Auto) 0.1 TH/MM3 CBC Comment DIFF FINAL Differential Comment Sodium Level 140 MEQ/L Potassium Level 4.1 MEQ/L Chloride Level 103 MEQ/L Carbon Dioxide Level 28.8 MEQ/L Anion Gap 8 MEQ/L Blood Urea Nitrogen 8 MG/DL Creatinine 0.82 MG/DL Estimat Glomerular Filtration 85 ML/MIN Rate Random Glucose 131 MG/DL Calcium Level 10.0 MG/DL Blood Gas Puncture Site RT RADIAL Blood Gas Patient Temperature 98.6 Blood Gas HCO3 25 mmol/L Blood Gas Base Excess 0.1 mmol/L Blood Gas Oxygen Saturation 89 % Arterial Blood pH 7.38 Arterial Blood Partial 43 mmHg Pressure CO2 Arterial Blood Partial 64 mmHG Pressure O2 Arterial Blood Oxygen Content 12.9 Vol % Arterial Blood 1.7 % Carboxyhemoglobin Arterial Blood Methemoglobin 0.7 % Blood Gas Hemoglobin 10.3 G/DL Oxygen Delivery Device ROOMAIR Blood Gas Inspired Oxygen 21 % [facility] Medical Decision Making Medical Screen Exam Complete: Yes Emergency Medical Condition: Yes Medical Record Reviewed: Yes Differential Diagnosis COPD exacerbation, pneumonia, pneumothorax, CHF, coronary artery disease Narrative Course CBC & BMP Diagram 05/12/16 22:10 AB.38 abgPO2 64, o2 saturation 89% RA Persistent dyspnea after 6 rounds of nebulizers. IV steroids given. ABG as above. Pt reluctant to attempt ambulation 2/2 dyspnea. Admission for O2, PRN nebs, monitoring. D/w Dr Dsouza. Diagnosis Primary Impression: COPD (chronic obstructive pulmonary disease) Qualified Code: J43.9 - Pulmonary emphysema, unspecified emphysema type Admitting Information Admitting Physician Requests: Observation Condition: Stable Ellis Yadav MD May 12, 2016 22:20
[2016-05-12 22:37] LABS: BICARBONATE 28.8 MEQ/L (21.0-32.0); POTASSIUM 4.1 MEQ/L (3.5-5.1)
[2016-05-12 22:58] VITALS: BP 160/67; PULSE 122; RESP 18; O2SAT 94
[2016-05-12] MEDS ORDERED: SODIUM CHLOR 0.9% 1000 ML INJ 1,000 ML IV ONE (23:00)
[2016-05-12] MEDS: RESP: ALBUTEROL 2.5 MG/3 ML NEB (SCH) INH ×2 (23:27→23:28)
[2016-05-13] VITALS (8 sets, daily range): BP systolic 103–137; BP diastolic 51–74; PULSE 94–115; RESP 16–20; TEMP 97.7–98.9; O2SAT 94–97
[2016-05-13 00:38] LABS: BLOOD GAS BASE EXCESS 0.1 mmol/L (-2-2); BLOOD GAS CARBOXYHEMOGLOBIN 1.7 % (0-4); BLOOD GAS HCO3 25 mmol/L (22-26); BLOOD GAS METHEMOGLOBIN 0.7 % (0-2); BLOOD GAS O2 HGB SATURATION 89 % (90-100); BLOOD GAS OXYGEN CONTENT 12.9 Vol % (12.0-20.0); BLOOD GAS PCO2 43 mmHg (38-42); BLOOD GAS PO2 64 mmHG (61-120); BLOOD GAS TOTAL HGB 10.3 G/DL (12.0-16.0); TEMP CORR TO 98.6
[2016-05-13 00:39] LABS: CRITICAL VALUE YES; DRAW SITE RT RADIAL; FIO2 21 %; NUMBER OF ARTERIAL PUNCTURES 1; OXYGEN DEVICE ROOMAIR; STAT YES
[2016-05-13] MEDS ORDERED: NALOXONE HCL 0.4 MG/ML AMP IV PRN (01:15)
[2016-05-13] MEDS ORDERED: SODIUM CHLORIDE 0.9% FLUSH 10 ML FLUSH IV FLUSH PRN (01:15)
[2016-05-13] MEDS: ACETAMINOPHEN 325 MG TAB PO PRN ×2 (03:38→21:29)
[2016-05-13] MEDS: RESP: ALBUTEROL 2.5 MG/IPRATROPIUM 0.5 MG NEB (SCH) NEB ×4 (03:47→20:49)
--- NOTE | 2016-05-13 04:25 | HHI.HP ---
HPI Service [facility] Primary Care Physician Non-Staff Admission Diagnosis COPD Exacerbation Diagnoses: Travel History International Travel<30 Days: No Contact w/Intl Traveler <30 Da: No Traveled to Known Affected Are: No History of Present Illness History from patient, your physician for medication current review of medical records. Patient reported that she came to the hospital because she was short of breath. She stated it was starting a few days ago but was today all of a sudden. Next I denies fever. Reports of cough which was going on for for past few days on and off. She reports it was whitish sputum. Also reports of dizziness and lightheadedness with blurry vision. She stated she always had this and she usually blames this on her diabetes. Denies any urinary burning or pain on urination or frequent urination. Denies seeing any blood in her stool or urine. Patient is a COPD patient. She's not on home oxygen. Stated she uses nebulizers when necessary. She reports she arrives to ER by her son's girlfriend driving her here. She states she took a total of 4 nebulizer treatments at home prior to coming here. According to the ER physician, he had given her several rounds of nebulizer treatments as well. Patient was saturating 89% on room air upon arrival. Patient states that she was treated with antibiotics and tapering doses of prednisone which she finished about a week ago. This was treated as outpatient by PCP. Was not hospitalized. patient denies ever being intubated for her COPD previously. However she reports that she barely could walk from her bedroom to the bathroom. She also look quite weak upon arrival to bedside. Review of Systems Except as stated in HPI: all other systems reviewed are Neg Past Family Social History Past Medical History htn dm afib copd Past Surgical History hip replacement torn ligament on fingers sx Allergies: Coded Allergies: Hctz (Verified Adverse Reaction, Mild, Nausea and Malaise, 02/26/16) Pt does not want to take Family History dm, htn- both parents Social History half a pack a day socially once a month drinker no drugs Physical Exam Vital Signs Vital Signs Date Time Temp Pulse Resp B/P Pulse Ox O2 Delivery O2 Flow Rate FiO2 05/13/16 01:33 98.9 115 18 137/63 95 Room Air 05/12/16 22:58 122 18 160/67 94 Room Air 05/12/16 21:35 100 Simple Mask 6 05/12/16 21:31 99 25 88 Room Air 05/12/16 21:31 99 Simple Mask 05/12/16 18:01 104 26 96 05/12/16 17:51 97.9 115 28 176/77 93 Room Air Physical Exam GENERAL: This is a thin frail lady, looking quite weak sleeping in bed. SKIN: No rashes, ecchymoses or lesions. Cool and dry. HEAD: Atraumatic. Normocephalic. No temporal or scalp tenderness. EYES: No scleral icterus. No injection or drainage. ENT: Nose without bleeding, purulent drainage or septal hematoma. Airway patent. NECK: Trachea midline. No JVD CARDIOVASCULAR: Regular rate and rhythm without murmurs, gallops, or rubs. RESPIRATORY: Bilaterally decreased air entry. GASTROINTESTINAL: Abdomen soft, non-tender, nondistended. No guarding. MUSCULOSKELETAL: Extremities without clubbing, cyanosis, or edema. No calf tenderness NEUROLOGICAL: Awake and alert. Motor and sensory grossly within normal limits. normal speech. Laboratory Laboratory Tests Test 05/12/16 05/13/16 22:10 00:29 White Blood Count 13.1 Red Blood Count 4.81 Hemoglobin 12.4 Hematocrit 39.9 Mean Corpuscular Volume 82.9 Mean Corpuscular Hemoglobin 25.9 Mean Corpuscular Hemoglobin 31.2 Concent Red Cell Distribution Width 16.6 Platelet Count 316 Mean Platelet Volume 9.6 Neutrophils (%) (Auto) 61.7 Lymphocytes (%) (Auto) 24.0 Monocytes (%) (Auto) 8.4 Eosinophils (%) (Auto) 5.0 Basophils (%) (Auto) 0.9 Neutrophils # (Auto) 8.1 Lymphocytes # (Auto) 3.1 Monocytes # (Auto) 1.1 Eosinophils # (Auto) 0.6 Basophils # (Auto) 0.1 CBC Comment DIFF FINAL Differential Comment Sodium Level 140 Potassium Level 4.1 Chloride Level 103 Carbon Dioxide Level 28.8 Anion Gap 8 Blood Urea Nitrogen 8 Creatinine 0.82 Estimat Glomerular Filtration 85 Rate Random Glucose 131 Calcium Level 10.0 Blood Gas Puncture Site RT RADIAL Blood Gas Patient Temperature 98.6 Blood Gas HCO3 25 Blood Gas Base Excess 0.1 Blood Gas Oxygen Saturation 89 Arterial Blood pH 7.38 Arterial Blood Partial 43 Pressure CO2 Arterial Blood Partial 64 Pressure O2 Arterial Blood Oxygen Content 12.9 Arterial Blood 1.7 Carboxyhemoglobin Arterial Blood Methemoglobin 0.7 Blood Gas Hemoglobin 10.3 Oxygen Delivery Device ROOMAIR Blood Gas Inspired Oxygen 21 Result Diagram: 05/12/16220905/12/162209 Imaging Last 48 hours Impressions Chest X-Ray 05/12/162128 Signed Impressions: Service Date/Time: April 21:28 - CONCLUSION: No acute disease. Fredo Perez MD Assessment and Plan Problem List: (1) COPD, severe ICD Code: J44.9 Status: Chronic Assessment and Plan Impression: COPD exacerbation Hypoxia Chronic active tobacco abuse htn dm afib copd Plan: Oxygen supplementation. Nebulizers scheduled and when necessary. Solu-Medrol 40 mg IV every 6 hours. We'll follow patient clinically. If she is able to ambulate and improved clinically, she could be discharged with tapering doses of steroids. However I doubt that she would improve within the next 24 hours. Resume home meds. We'll monitor fingersticks closely. DVT prophylaxiswith Lovenox. GI prophylaxis on pantoprazole. Discussed Condition With patient, ER William Chun MD May 13, 2016 04:25
[2016-05-13] MEDS ORDERED: DEXTROSE 50% IN WATER 50 ML VIAL(D50) IV PUSH PRN (04:30)
[2016-05-13] MEDS ORDERED: CROMOLYN SODIUM 5.2 MG/ACT 13 ML NASAL SPRAY NASAL ONE (04:30)
[2016-05-13] MEDS ORDERED: GLUCAGON 1 MG/ML VIAL OTHER PRN (04:30)
[2016-05-13] MEDS: methylPREDNISolone SOD SUCC 40 MG/1 ML VIAL IV PUSH SCH ×3 (05:40→21:30)
[2016-05-13] MEDS: INSULIN ASPART SUPPLEMENTAL SCALE SQ SCH ×4 (08:00→21:30)
[2016-05-13] MEDS: SODIUM CHLORIDE 0.9% FLUSH 10 ML FLUSH IV FLUSH SCH ×2 (08:54→21:00)
[2016-05-13] MEDS: amLODIPine BESYLATE 5 MG TAB PO SCH (08:55)
[2016-05-13] MEDS: ENOXAPARIN SODIUM 40 MG/0.4 ML SYRINGE SQ SCH (08:55)
[2016-05-13] MEDS: DIGOXIN 0.25 MG TAB PO SCH (08:55)
[2016-05-13] MEDS: INSULIN DETEMIR 100 UNITS/ML VIAL SQ SCH (08:55)
[2016-05-13] MEDS: ASPIRIN 81 MG CHEW TAB CHEW SCH (08:56)
[2016-05-13] MEDS: LISINOPRIL 20 MG TAB PO SCH (08:56)
[2016-05-13] MEDS: PANTOPRAZOLE SOD 20 MG DELAYED RELEASE TAB PO SCH (08:56)
[2016-05-13] MEDS ORDERED: PRAVASTATIN SOD 20 MG TAB PO SCH (09:00)
[2016-05-13] MEDS ORDERED: PANTOPRAZOLE SOD 40 MG DELAYED RELEASE TAB PO SCH (09:00)
--- NOTE | 2016-05-13 14:59 | HHI.PR ---
Subjective Remarks Follow-up for COPD exacerbation. Patient reports her breathing is improved overnight, but not yet to baseline. She continues to complain of cough that is productive with green sputum. She denies any fevers, chills, recent illness. She continues to smoke, but she's been trying to cut back. She is awaiting pulmonology referral from her PCP. Objective Vitals Vital Signs Date Time Temp Pulse Resp B/P Pulse Ox O2 Delivery O2 Flow Rate FiO2 05/13/16 11:11 97.8 98 17 137/63 97 05/13/16 09:28 97.8 98 19 119/59 96 05/13/16 05:43 108 20 132/74 94 Room Air 05/13/16 01:33 98.9 115 18 137/63 95 Room Air 05/12/16 22:58 122 18 160/67 94 Room Air 05/12/16 21:35 100 Simple Mask 6 05/12/16 21:31 99 25 88 Room Air 05/12/16 21:31 99 Simple Mask 05/12/16 18:01 104 26 96 05/12/16 17:51 97.9 115 28 176/77 93 Room Air Result Diagram: 05/12/16220905/12/162209 Imaging Last Impressions Chest X-Ray 05/12/162128 Signed Impressions: Service Date/Time: April 21:28 - CONCLUSION: No acute disease. Fredo Perez MD Objective Remarks GENERAL: Well-developed, thin, fair-nourished female. In no acute distress. SKIN: Warm and dry. No lesions noted. HEENT: Normocephalic. Pupils equal and round. Mucous membranes pink and moist. CARDIOVASCULAR: Regular rate and rhythm. No murmur appreciated. RESPIRATORY: No accessory muscle use. Poor air movement in all lung grubbs with rare wheezing. GASTROINTESTINAL: Abdomen soft, non-tender, nondistended. Bowel sounds x4. MUSCULOSKELETAL: No obvious deformities. No clubbing or cyanosis. No edema. NEUROLOGICAL: Awake and alert. No focal neurological deficits. Moves upper and lower extremities spontaneously. Normal speech. PSYCHIATRIC: Appropriate mood and affect; insight and judgment normal. A/P Problem List: (1) COPD, severe ICD Code: J44.9 Status: Acute Assessment and Plan 65-year-old female with past mental history of COPD, A. fib, DM, HTN who presented with shortness of breath COPD with acute exacerbation and hypoxia: O2 saturation 89% on admission. Chest x-ray reviewed and clear. Afebrile, mild leukocytosis 13.1. Currently on room air. Taper IV Solu-Medrol to every 8 hours. Continue scheduled and as needed nebs. O2 as needed. Guaifenesin for cough. Counseled on tobacco cessation. COPD educator consult. Resume home maintenance pulmonary regimen at [place]. Diabetes mellitus: Chronic. Continue home Levemir. Additional coverage with SSI with Accu-Cheks especially while on steroids. Atrial fibrillation: Chronic. Continue aspirin and digoxin. Other chronic medical conditions include GERD, hyperlipidemia, hypertension: Stable at this time and will continue home medications as indicated. DVT prophylaxis: Lovenox Discharge Planning Hopefully discharge tomorrow if patient continues to improve. Santiago Munoz May 13, 2016 14:59 Jody Sung MD May 13, 2016 15:11
--- NOTE | 2016-05-13 16:54 | EKG ---
Date Performed: 05/12/2016 Time Performed: 22:05:38 PTAGE: 65 years EKG: SINUS TACHYCARDIA NONSPECIFIC ST & T-WAVE ABNORMALITY ABNORMAL RHYTHM ECG Compared to prior tracing no significant change PREVIOUS TRACING : 03/13/2016 15.56 DOCTOR: Cisco Wilson Interpretating Date/Time 05/13/2016 16:52:56
[2016-05-13] MEDS: guaiFENesin E.R. 600 MG TAB PO SCH ×2 (17:56→21:00)
[2016-05-13] MEDS: PRAVASTATIN SOD 40 MG TAB PO SCH (21:00)
[2016-05-14] VITALS (9 sets, daily range): BP systolic 111–150; BP diastolic 55–65; PULSE 91–105; RESP 20–22; TEMP 97.7–99.1; O2SAT 93–100
[2016-05-14] MEDS: methylPREDNISolone SOD SUCC 40 MG/1 ML VIAL IV PUSH SCH ×2 (06:04→20:35)
[2016-05-14] MEDS: INSULIN ASPART SUPPLEMENTAL SCALE SQ SCH ×4 (06:05→20:37)
[2016-05-14 06:36] LABS: BICARBONATE 24.3 MEQ/L (21.0-32.0); POTASSIUM 4.3 MEQ/L (3.5-5.1)
[2016-05-14 06:48] LABS: BASOPHIL % 0.2 % (0.0-2.0); HEMATOCRIT 31.1 % (35.0-46.0); HEMO FLAGS DIFF FINAL; LYMPH % 4.4 % (9.0-44.0); LYMPHOCYTE # 0.7 TH/MM3 (1.0-4.8); MEAN CELL VOLUME 82.4 FL (80.0-100.0); MEAN CORPUSCULAR HEMOGLOBIN 25.7 PG (27.0-34.0); MEAN CORPUSCULAR HGB CONC 31.1 % (32.0-36.0); NEUT % 91.4 % (16.0-70.0); PLATELET COUNT 255 TH/MM3 (150-450); RED BLOOD COUNT 3.77 MIL/MM3 (4.00-5.30); RED CELL DISTRIBUTION WIDTH 16.6 % (11.6-17.2); WHITE BLOOD COUNT 16.4 TH/MM3 (4.0-11.0)
[2016-05-14] MEDS: ENOXAPARIN SODIUM 40 MG/0.4 ML SYRINGE SQ SCH (07:28)
[2016-05-14] MEDS: INSULIN DETEMIR 100 UNITS/ML VIAL SQ SCH (07:28)
[2016-05-14] MEDS: LISINOPRIL 20 MG TAB PO SCH (07:28)
[2016-05-14] MEDS: DIGOXIN 0.25 MG TAB PO SCH (07:29)
[2016-05-14] MEDS: PRAVASTATIN SOD 40 MG TAB PO SCH ×2 (07:29→20:36)
[2016-05-14] MEDS: guaiFENesin E.R. 600 MG TAB PO SCH ×2 (07:29→20:36)
[2016-05-14] MEDS: amLODIPine BESYLATE 5 MG TAB PO SCH (07:29)
[2016-05-14] MEDS: RESP: ALBUTEROL 2.5 MG/IPRATROPIUM 0.5 MG NEB (SCH) NEB ×3 (07:37→19:43)
[2016-05-14 07:55] LABS: TRANSFERRIN IRON PROFILE 320 MG/DL (200-360)
[2016-05-14 07:58] LABS: FERRITIN 9 NG/ML (8-252)
[2016-05-14] MEDS ORDERED: BENZONATATE 100 MG CAP PO PRN (08:00)
[2016-05-14] MEDS ORDERED: SODIUM CHLORIDE 0.65% NASAL SPRAY 45 ML BTL EACH NARE ONE (08:00)
[2016-05-14] MEDS ORDERED: SODIUM CHLORIDE 0.65% NASAL SPRAY 45 ML BTL EACH NARE PRN (08:00)
[2016-05-14] MEDS ORDERED: BENZONATATE 100 MG CAP PO ONE (08:00)
--- NOTE | 2016-05-14 08:07 | HHI.PR ---
Subjective Remarks Follow-up for COPD exacerbation and anemia. The patient reports her breathing is 50% back to baseline since admission. She continues to complain of cough, unchanged. She states that occasionally she gets nosebleeds with oxygen, but no significant bleeding on this admission. She states that recently she has intermittent episodes where there is some blood when she wipes after urinating. She is unsure if it is urinary bleeding or vaginal. Menopausal. She does feel a little lightheaded and dizzy. She denies any chest pain. The pt feels depressed. She said her breathing was OK. She does not recall a history of anemia. Objective Vitals Vital Signs Date Time Temp Pulse Resp B/P Pulse Ox O2 Delivery O2 Flow Rate FiO2 05/14/16 07:43 94 21 05/14/16 07:24 97.7 98 22 130/60 99 05/14/16 03:54 98.6 97 20 113/63 95 05/14/16 00:10 99.1 101 20 111/55 100 05/13/16 21:00 95 21 05/13/16 20:00 98 05/13/16 19:27 98.8 103 20 103/51 95 05/13/16 16:25 97.7 94 16 131/60 96 05/13/16 11:11 97.8 98 17 137/63 97 05/13/16 09:28 97.8 98 19 119/59 96 I/O 05/13/16 05/13/16 05/13/16 05/14/16 05/14/16 05/14/16 07:00 15:00 23:00 07:00 15:00 23:00 Intake Total 360 ml Balance 360 ml Intake Oral 360 ml # Voids 3 Result Diagram: 05/14/16 0515 05/14/16 0515 Imaging Last Impressions Chest X-Ray 05/12/162128 Signed Impressions: Service Date/Time: April 21:28 - CONCLUSION: No acute disease. Fredo Perez MD Objective Remarks GENERAL: Well-developed, thin, fair-nourished female. In no acute distress. SKIN: Warm and dry. No lesions noted. HEENT: Normocephalic. Pupils equal and round. Mucous membranes pink and moist. CARDIOVASCULAR: Regular rate and rhythm. No murmur appreciated. RESPIRATORY: No accessory muscle use. Poor air movement in all lung grubbs with rare wheezing. GASTROINTESTINAL: Abdomen soft, non-tender, nondistended. Bowel sounds x4. MUSCULOSKELETAL: No obvious deformities. No clubbing or cyanosis. No edema. NEUROLOGICAL: Awake and alert. No focal neurological deficits. Moves upper and lower extremities spontaneously. Normal speech. PSYCHIATRIC: Appropriate mood and affect; insight and judgment normal. Medications and IVs Current Medications Medications (Trade) Dose Ordered Sig/Rema Route Start Time Stop Time Status Last Admin (NS Flush) 2 ml UNSCH PRN IV FLUSH 05/13/16 01:15 (NS Flush) 2 ml BID IV FLUSH 05/13/16 09:00 05/14/16 09:00 (Lovenox Inj) 40 mg Q24H SQ 05/13/16 09:00 Hold 05/14/16 07:28 (Narcan Inj) 0.4 mg UNSCH PRN IV 05/13/16 01:15 (Tylenol) 650 mg Q4H PRN PO 05/13/16 03:30 05/13/16 21:29 (Norvasc) 2.5 mg DAILY PO 05/13/16 09:00 05/14/16 07:29 (Aspirin Chew) 81 mg DAILY CHEW 05/13/16 09:00 05/14/16 10:35 (Lanoxin) 0.25 mg DAILY PO 05/13/16 09:00 05/14/16 07:29 (Levemir Inj) 14 units DAILY SQ 05/13/16 09:00 05/14/16 07:28 (Prinivil) 20 mg DAILY PO 05/13/16 09:00 05/14/16 07:28 (Protonix) 20 mg DAILY PO 05/13/16 09:00 05/14/16 10:35 (D50w (Vial) Inj) 25 ml UNSCH PRN IV PUSH 05/13/16 04:30 (Glucagon Inj) 1 mg UNSCH PRN OTHER 05/13/16 04:30 (Mucinex Er) 600 mg BID PO 05/13/16 15:00 05/14/16 07:29 (Pravachol) 40 mg BID PO 05/13/16 21:00 05/14/16 07:29 (Tessalon) 100 mg TID PRN PO 05/14/16 08:00 (Cromwell Franki [place]) 2 spray Q4H PRN EACH NARE 05/14/16 08:00 (SoluMEDROL INJ) 40 mg Q12HR IV PUSH 05/14/16 21:00 (Ferrous Sulfate) 325 mg DAILY PO 05/14/16 09:00 05/14/16 08:22 (Colace) 100 mg BID PO 05/14/16 12:45 05/14/16 15:30 A/P Problem List: (1) COPD, severe ICD Code: J44.9 Status: Acute Assessment and Plan 65-year-old female with past mental history of COPD, A. fib, DM, HTN who presented with shortness of breath COPD with acute exacerbation and hypoxia: O2 saturation 89% on admission. Chest x-ray reviewed and clear. Afebrile, mild leukocytosis 13.1. Currently on room air. Taper IV Solu-Medrol to every 12 hours. Continue scheduled and as needed nebs. O2 as needed. Guaifenesin and Tessalon as needed for cough. Counseled on tobacco cessation. COPD educator consult. Resume home maintenance pulmonary regimen at [place]. Continue above care. Acute normocytic anemia: Presented with hemoglobin 12.4, previously 11.7 on 03/13. Hemoglobin did decrease to 9.7, possibly secondary to bleeding from Lovenox administration. Saline nasal spray for nasal mucosal irritation. Check UA to evaluate for hematuria. May need endometrial and follow-up as outpatient. Check iron studies and start iron supplementation if need. Check Hemoccult. Continue iron supplementation. Diabetes mellitus: Chronic with acute hyperglycemia from steroids. Continue home Levemir. Additional coverage with SSI with Accu-Cheks especially while on steroids. Check hemoglobin A1c. Atrial fibrillation: Chronic. Continue aspirin and digoxin. Leukocytosis: Suspect steroid-induced. Tmax 99.1. Watch for fevers or signs of infection. Other chronic medical conditions include GERD, hyperlipidemia, hypertension: Stable at this time and will continue home medications as indicated. DVT prophylaxis: SCDs. Discontinue Lovenox with possible bleeding. Attending Statement The exam, history, and the medical decision-making described in the above note were completed with the assistance of the mid-level provider. I reviewed and agree with the findings presented. I attest that I had a [id number] encounter with the patient on the same day, and personally performed and documented my assessment and findings in the medical record. Santiago Munoz May 14, 2016 08:07 Ap Reid DO May 14, 2016 16:49
[2016-05-14] MEDS: FERROUS SULFATE 325 MG (65 MG ELEMENTAL IRON) TAB PO SCH (08:22)
[2016-05-14] MEDS: SODIUM CHLORIDE 0.9% FLUSH 10 ML FLUSH IV FLUSH SCH ×2 (09:00→20:35)
[2016-05-14] MEDS: ASPIRIN 81 MG CHEW TAB CHEW SCH (10:35)
[2016-05-14] MEDS: PANTOPRAZOLE SOD 20 MG DELAYED RELEASE TAB PO SCH (10:35)
[2016-05-14 12:06] LABS: HEMATOCRIT 32.8 % (35.0-46.0); REVIEW FLAG FINAL
[2016-05-14 13:13] LABS: BLOOD, URINE NEG (NEG); GLUCOSE,URINE 1000 mg/dL (NEG); KETONE, URINE NEG (NEG); NITRITE,URINE NEG (NEG); PH, URINE 5.5 (5.0-8.5); URINE COLOR LIGHT-YELLOW (YELLW/STRAW)
[2016-05-14 13:26] LABS: COMMENT (UR) CULT NOT INDICATED; CULTURE IF INDICATED CULT NOT INDICATED
[2016-05-14] MEDS: DOCUSATE SODIUM 100 MG CAP PO SCH ×2 (15:30→20:36)
[2016-05-14] MEDS ORDERED: PRED20 PO (16:28)
[2016-05-14] MEDS ORDERED: BENZ100 PO (16:28)
[2016-05-14] MEDS: ACETAMINOPHEN 325 MG TAB PO PRN (20:45)
[2016-05-14] MEDS: RESP: ALBUTEROL 2.5 MG/IPRATROPIUM 0.5 MG NEB (PRN) NEB (23:27)
[2016-05-15 00:08] VITALS: BP 144/67; PULSE 100; RESP 20; TEMP 98.1; O2SAT 98
[2016-05-15] MEDS: RESP: ALBUTEROL 2.5 MG/IPRATROPIUM 0.5 MG NEB (PRN) NEB (03:18)
[2016-05-15 03:41] VITALS: BP 134/63; PULSE 98; RESP 20; TEMP 97.9; O2SAT 98
[2016-05-15] MEDS: INSULIN ASPART SUPPLEMENTAL SCALE SQ SCH (06:17)
[2016-05-15 07:09] VITALS: BP 123/56; PULSE 92; RESP 20; TEMP 97.6; O2SAT 94
[2016-05-15 07:16] LABS: AUTOMATED NEUTROPHIL # 16.3 TH/MM3 (1.8-7.7); BASOPHIL # 0.1 TH/MM3 (0-0.2); BASOPHIL % 0.6 % (0.0-2.0); HEMATOCRIT 31.6 % (35.0-46.0); HEMO FLAGS DIFF FINAL; LYMPH % 2.6 % (9.0-44.0); LYMPHOCYTE # 0.5 TH/MM3 (1.0-4.8); MEAN CELL VOLUME 83.4 FL (80.0-100.0); MEAN CORPUSCULAR HEMOGLOBIN 25.9 PG (27.0-34.0); MONO % 3.1 % (0.0-8.0); NEUT % 93.7 % (16.0-70.0); PLATELET COUNT 245 TH/MM3 (150-450); RED BLOOD COUNT 3.79 MIL/MM3 (4.00-5.30); RED CELL DISTRIBUTION WIDTH 16.9 % (11.6-17.2); WHITE BLOOD COUNT 17.4 TH/MM3 (4.0-11.0)
[2016-05-15] MEDS: RESP: ALBUTEROL 2.5 MG/IPRATROPIUM 0.5 MG NEB (SCH) NEB ×2 (07:39→07:45)
[2016-05-15] MEDS ORDERED: FERR325T PO (07:46)
[2016-05-15] MEDS ORDERED: COLA100C3 PO (07:46)
[2016-05-15] MEDS ORDERED: MELA1TAB18 PO (07:46)
[2016-05-15 07:47] VITALS: O2SAT 96
--- NOTE | 2016-05-15 07:54 | HHI.DS ---
Discharge Summary Admission Date May 13, 2016 at 01:07 Discharge Date: May 15, 2016 Admitting Diagnosis COPD Exacerbation (1) COPD, severe ICD Code: J44.9 Diagnosis: Principal (2) Anemia ICD Code: D64.9 Diagnosis: Secondary (3) COPD exacerbation ICD Code: J44.1 Diagnosis: Principal Procedures none Brief History - From Admission History from patient, your physician for medication current review of medical records. Patient reported that she came to the hospital because she was short of breath. She stated it was starting a few days ago but was today all of a sudden. Next I denies fever. Reports of cough which was going on for for past few days on and off. She reports it was whitish sputum. Also reports of dizziness and lightheadedness with blurry vision. She stated she always had this and she usually blames this on her diabetes. Denies any urinary burning or pain on urination or frequent urination. Denies seeing any blood in her stool or urine. Patient is a COPD patient. She's not on home oxygen. Stated she uses nebulizers when necessary. She reports she arrives to ER by her son's girlfriend driving her here. She states she took a total of 4 nebulizer treatments at home prior to coming here. According to the ER physician, he had given her several rounds of nebulizer treatments as well. Patient was saturating 89% on room air upon arrival. Patient states that she was treated with antibiotics and tapering doses of prednisone which she finished about a week ago. This was treated as outpatient by PCP. Was not hospitalized. patient denies ever being intubated for her COPD previously. However she reports that she barely could walk from her bedroom to the bathroom. She also look quite weak upon arrival to bedside. CBC/BMP: 05/15/16 0503 05/14/16 0515 Significant Findings Laboratory Tests Test 05/12/16 05/13/16 05/14/16 05/14/16 22:10 00:29 05:15 11:39 White Blood Count 13.1 TH/MM3 16.4 TH/MM3 (4.0-11.0) (4.0-11.0) Mean Corpuscular Hemoglobin 25.9 PG 25.7 PG (27.0-34.0) (27.0-34.0) Mean Corpuscular Hemoglobin 31.2 % 31.1 % Concent (32.0-36.0) (32.0-36.0) Monocytes (%) (Auto) 8.4 % (0.0-8.0) Eosinophils (%) (Auto) 5.0 % (0.0-4.0) Neutrophils # (Auto) 8.1 TH/MM3 15.0 TH/MM3 (1.8-7.7) (1.8-7.7) Monocytes # (Auto) 1.1 TH/MM3 (0-0.9) Eosinophils # (Auto) 0.6 TH/MM3 (0-0.4) Estimat Glomerular Filtration 85 ML/MIN (>89) 83 ML/MIN (>89) Rate Random Glucose 131 MG/DL 219 MG/DL (74-106) (74-106) Blood Gas Oxygen Saturation 89 % (90-100) Arterial Blood Partial 43 mmHg (38-42) Pressure CO2 Blood Gas Hemoglobin 10.3 G/DL (12.0-16.0) Red Blood Count 3.77 MIL/MM3 (4.00-5.30) Hemoglobin 9.7 GM/DL 10.2 GM/DL (11.6-15.3) (11.6-15.3) Hematocrit 31.1 % 32.8 % (35.0-46.0) (35.0-46.0) Neutrophils (%) (Auto) 91.4 % (16.0-70.0) Lymphocytes (%) (Auto) 4.4 % (9.0-44.0) Lymphocytes # (Auto) 0.7 TH/MM3 (1.0-4.8) Chloride Level 108 MEQ/L (98-107) Iron Level 18 MCG/DL (50-170) Percent Iron Saturation 4.0 % (20-50) Test 05/14/16 05/15/16 12:20 05:03 Urine Glucose (UA) 1000 mg/dL (NEG) White Blood Count 17.4 TH/MM3 (4.0-11.0) Red Blood Count 3.79 MIL/MM3 (4.00-5.30) Hemoglobin 9.8 GM/DL (11.6-15.3) Hematocrit 31.6 % (35.0-46.0) Mean Corpuscular Hemoglobin 25.9 PG (27.0-34.0) Mean Corpuscular Hemoglobin 31.0 % Concent (32.0-36.0) Neutrophils (%) (Auto) 93.7 % (16.0-70.0) Lymphocytes (%) (Auto) 2.6 % (9.0-44.0) Neutrophils # (Auto) 16.3 TH/MM3 (1.8-7.7) Lymphocytes # (Auto) 0.5 TH/MM3 (1.0-4.8) Imaging Last Impressions Chest X-Ray 05/12/162128 Signed Impressions: Service Date/Time: , May 12, 2016 21:28 - CONCLUSION: No acute disease. Fredo Perez MD PE at Discharge GENERAL: Well-developed, thin, fair-nourished female. In no acute distress. SKIN: Warm and dry. No lesions noted. HEENT: Normocephalic. Pupils equal and round. Mucous membranes pink and moist. CARDIOVASCULAR: Regular rate and rhythm. No murmur appreciated. RESPIRATORY: No accessory muscle use. Poor air movement in all lung grubbs with rare wheezing. GASTROINTESTINAL: Abdomen soft, non-tender, nondistended. Bowel sounds x4. MUSCULOSKELETAL: No obvious deformities. No clubbing or cyanosis. No edema. NEUROLOGICAL: Awake and alert. No focal neurological deficits. Moves upper and lower extremities spontaneously. Normal speech. PSYCHIATRIC: Appropriate mood and affect; insight and judgment normal. Pt update on day of discharge The patient didn't sleep well, has chronic insomnia. Seen ambulating the halls. Had previously been prescribed medication for sleep by PCP, although they made her sleep all day. Has never tried melatonin. She denies any further bleeding overnight. Shortness of breath is okay. Hospital Course 65-year-old female with past mental history of COPD, A. fib, DM, HTN who presented with shortness of breath COPD with acute exacerbation and hypoxia: O2 saturation 89% on admission. Chest x-ray reviewed and clear. Afebrile, mild leukocytosis. Currently on room air. IV Solu-Medrol to oral prednisone. Continue scheduled and as needed nebs. O2 as needed. Tessalon as needed for cough. Counseled on tobacco cessation. COPD educator consult. Resume home maintenance pulmonary regimen at [place]. Acute normocytic anemia: Presented with hemoglobin 12.4, previously 11.7 on 03/13. Hemoglobin did decrease to 9.7, possibly secondary to bleeding from Lovenox administration. Iron studies show iron deficiency, started on iron supplementation with a bowel regimen. Saline nasal spray for nasal mucosal irritation. No hematuria on UA. Hemoccult negative. Needs SHOE DESIGNER follow-up as outpatient. Hemoglobin stable at 9.8 overnight. Diabetes mellitus: Chronic with acute hyperglycemia from steroids, tapering. Continue home Levemir. Was covered with SSI with Accu-Cheks while on steroids. Hemoglobin A1c pending. PCP follow-up. Atrial fibrillation: Chronic. Continue aspirin and digoxin. Leukocytosis: Suspect steroid-induced. Temperature 99.1 1, no other fevers. Chest x-ray and UA clear. Other chronic medical conditions include GERD, hyperlipidemia, hypertension: Stable at this time and will continue home medications as indicated. Pt Condition on Discharge: Stable Discharge Disposition: Discharge Home Discharge Time: > 30 minutes Discharge Instructions DIET: Follow Instructions for: Diabetic Diet Activities you can perform: Regular-No Restrictions Follow up Referrals: AREA MANAGER - 2 Weeks PCP Follow-up - 2-3 Days with Emily New Medications: Docusate Sodium (Colace) 100 Mg Cap 100 MG PO BID PRN Constipation #60 Ref 0 CAP Melatonin (Melatonin) 10 Mg Tab 10 MG PO HS PRN SLEEP #15 Ref 0 TAB Prednisone (Prednisone) 20 Mg Tab 20 MG PO BID Broncospasm #6 Ref 0 TAB Benzonatate (Tessalon Perles) 100 Mg Cap 100 MG PO TID PRN COUGH #10 CAP Ferrous Sulfate (Ferrous Sulfate) 325 Mg Tab 325 MG PO DAILY anemia #30 TAB Continued Medications: Albuterol 6.7 GM Inh (Proventil Hfa 6.7 GM Inh) 90 Mcg/Act Aer 2 PUFF INH Q6H PRN SHORTNESS OF BREATH #1 Ref 0 INHALER Albuterol Neb (Albuterol Neb) 2.5 Mg/0.5 Ml Neb 2.5 MG NEB QID NEB Note: The Albuterol Sulfate Inhalation Solution is concentrated and must be diluted. Read complete instructions carefully before using. Breathing Treatment #120 Ref 0 NEBULE Amlodipine (Amlodipine) 2.5 Mg Tab 2.5 MG PO DAILY Blood Pressure Management #30 Ref 0 TAB Aspirin (Aspirin Low Dose) 81 Mg Chew 81 MG CHEW DAILY Ref 0 TAB Digoxin (Digoxin) 0.25 Mg Tab 0.25 MG PO DAILY Regulate Heart Beat #30 Ref 0 TAB Fluticasone-Salmeterol Inh (Advair Diskus Inh) 100-50 Mcg/Blist Aer 1 PUFF INH BID Rinse mouth after use. #1 Ref 0 INHALER Insulin Glargine Inj (Lantus Inj) 1,000 Unit/10 Ml Vial 14 UNITS SQ DAILY Blood Sugar Management Ref 0 VIAL Ipratropium Neb (Ipratropium Neb) 0.5 Mg/2.5 Ml Amp 0.5 MG NEB Q6HR NEB PRN SHORTNESS OF BREATH #120 Ref 0 NEBULE Ipratropium-Albuterol Inh (Combivent Respimat Inh) 20-100 Chcf/Act Aero 1 PUFF INH QID Asthma Management #1 Ref 0 INHALER Lisinopril (Lisinopril) 20 Mg Tab 20 MG PO DAILY #30 Ref 0 TAB Pantoprazole (Protonix) 20 Mg Tab 20 MG PO DAILY Reflux #30 Ref 0 TAB Simvastatin (Simvastatin) 20 Mg Tab 20 MG PO BID Cholesterol Management #30 Ref 0 TAB Santiago Munoz May 15, 2016 07:54 Ap Reid DO May 15, 2016 15:42
[2016-05-15] MEDS: amLODIPine BESYLATE 5 MG TAB PO SCH (08:23)
[2016-05-15] MEDS: LISINOPRIL 20 MG TAB PO SCH (08:24)
[2016-05-15] MEDS: DOCUSATE SODIUM 100 MG CAP PO SCH (08:24)
[2016-05-15] MEDS: guaiFENesin E.R. 600 MG TAB PO SCH (08:24)
[2016-05-15] MEDS: DIGOXIN 0.25 MG TAB PO SCH (08:24)
[2016-05-15] MEDS: PANTOPRAZOLE SOD 20 MG DELAYED RELEASE TAB PO SCH (08:25)
[2016-05-15] MEDS: ASPIRIN 81 MG CHEW TAB CHEW SCH (08:25)
[2016-05-15] MEDS: FERROUS SULFATE 325 MG (65 MG ELEMENTAL IRON) TAB PO SCH (08:25)
[2016-05-15] MEDS: methylPREDNISolone SOD SUCC 40 MG/1 ML VIAL IV PUSH SCH (08:26)
[2016-05-15] MEDS: PRAVASTATIN SOD 40 MG TAB PO SCH (08:26)
[2016-05-15] MEDS: INSULIN DETEMIR 100 UNITS/ML VIAL SQ SCH (08:27)
[2016-05-15] MEDS: SODIUM CHLORIDE 0.9% FLUSH 10 ML FLUSH IV FLUSH SCH (08:28)
[2016-05-15 11:12] LABS: HEMOGLOBIN A1a 1.7 %; HEMOGLOBIN A1b 2.6 %; HEMOGLOBIN Ao 78.7 %; HEMOGLOBIN P3 4.9 %
== END 2016-05-15 10:34 | disposition home or self-care (01) ==
LOC: NEPB 17:47 → NEDA 05-13 01:07 → NEDH 05-13 05:07 → NEPFCDU 05-13 08:30
PROVIDERS: ADMIT Hospitalist; ATTEND Hospitalist
DX: J44.1 Chronic obstructive pulmonary disease with (acute) exacerbation (principal); I10 Essential (primary) hypertension; D72.829 Elevated white blood cell count, unspecified; I48.2 Chronic atrial fibrillation; D64.9 Anemia, unspecified; T38.0X5A Adverse effect of glucocorticoids and synthetic analogues, initial encounter; E11.65 Type 2 diabetes mellitus with hyperglycemia; F17.200 Nicotine dependence, unspecified, uncomplicated; E78.00 Pure hypercholesterolemia, unspecified; I25.10 Atherosclerotic heart disease of native coronary artery without angina pectoris; K21.9 Gastro-esophageal reflux disease without esophagitis; Z87.01 Personal history of pneumonia (recurrent); Z96.642 Presence of left artificial hip joint; Z79.82 Long term (current) use of aspirin; Z79.4 Long term (current) use of insulin; Z88.8 Allergy status to other drugs, medicaments and biological substances; Z79.51 Long term (current) use of inhaled steroids
CPT/HCPCS: 36600; 71010; 80048; 81001; 82272; 82728; 82805; 82948; 83036; 83540; 83550; 85014; 85018; 85025; 93005; 94640; 94664; 96361; 96374; 97162; 99285; G0378; J1650; J1815; J2920; J2930; J7030; J7613

== ENCOUNTER 2016-05-29 23:49 | Emergency (ER) | payer OTHER ==
[~2016-05-29] VITALS: Ht 165.1 cm; Wt 46.0 kg
[~2016-05-29 23:49] MED LIST changes: +BENZ100 PO; +COLA100C3 PO; +FERR325T PO; -LANTINJ SQ; +MELA1TAB18 PO
[2016-05-29 23:51] VITALS: BP 151/66; PULSE 103; RESP 24; TEMP 97.9; O2SAT 96
[2016-05-30] MEDS ORDERED: methylPREDNISolone SOD SUCC 125 MG/2 ML VIAL IVP ONE (02:30)
[2016-05-30] MEDS ORDERED: SODIUM CHLORIDE 0.9% FLUSH 10 ML FLUSH IVF PRN (02:30)
[2016-05-30] MEDS: RESP: ALBUTEROL 2.5 MG/IPRATROPIUM 0.5 MG NEB (SCH) INH ×3 (02:31→03:40)
[2016-05-30 02:34] VITALS: O2SAT 97
--- NOTE | 2016-05-30 02:36 | PD ---
HPI . Dyspnea Chief Complaint: Respiratory Symptoms Time Seen by Provider: 02:09 Travel History International Travel<30 days: No Contact w/Intl Traveler<30days: No Traveled to known affect area: No History of Present Illness HPI Patient presents complaining with dyspnea. She has a history of COPD. She states that she's been short of breath all week and it has been getting progressively worse. She reports a cough which is productive of sputum but states that she has not looked at the sputum. She denies chest pain or fever. She states that she has just recently finished prednisone a previous COPD exacerbation. Her shortness of breath has been unrelieved by 4 nebulizer treatments and 2 doses of Combivent. She states that her shortness of breath is not as severe as it has been in the past. She states that it is not as severe as it was when she was admitted recently. PFSH Past Medical History Hx Anticoagulant Therapy: Yes (aspirin) Arthritis: Yes Asthma: No Autoimmune Disease: No Blood Disorders: No Anxiety: No Depression: No Heart Rhythm Problems: Yes Cancer: No Cardiovascular Problems: Yes (HTN) High Cholesterol: Yes Chemotherapy: No Chest Pain: Yes Congestive Heart Failure: No COPD: Yes Cerebrovascular Accident: No Coronary Artery Disease: Yes Diabetes: Yes Patient Takes Glucophage: No Diminished Hearing: No Endocrine: Yes Gastrointestinal Disorders: Yes (acid reflux, hyperacidity) GERD: Yes Genitourinary: No Headaches: Yes Hiatal Hernia: No Hypertension: Yes Immune Disorder: No Implanted Vascular Access Dvce: Yes Kidney Stones: No Musculoskeletal: Yes (ARTHRITIS/LEFT HIP VASCULAR NECROSIS) Neurologic: Yes Psychiatric: No Reproductive: No Respiratory: Yes Immunizations Current: No Migraines: No Pneumonia: Yes Radiation Therapy: No Renal Failure: No Seizures: No Sleep Apnea: Yes Thyroid Disease: No Ulcer: No Influenza Vaccination: Yes Menopausal: Yes : 3 Para: 3 Miscarriage: 0 : 0 Past Surgical History Abdominal Surgery: No AICD: No Arteriovenous Shunt: No Cardiac Surgery: No Section: Yes Ear Surgery: No Endocrine Surgery: No Eye Surgery: No Genitourinary Surgery: No Gynecologic Surgery: Yes (cycst removed) Hysterectomy: Yes (HTN) Insulin Pump: No Joint Replacement: Yes (LEFT HIP) Oral Surgery: No Pacemaker: No Thoracic Surgery: Yes Other Surgery: Yes (LEFT HIP REPLACEMENT, LIGAMENTS IN FINGER, R CHEST TUBE ) Family History Family Hypercholesterolemia: Yes Social History Alcohol Use: No Tobacco Use: Yes Substance Use: No Allergies-Medications (Allergen,Severity, Reaction): Coded Allergies: Hctz (Verified Adverse Reaction, Mild, Nausea and Malaise, 05/30/16) Pt does not want to take Reported Meds & Prescriptions Reported Meds & Active Scripts Active Ferrous Sulfate 325 Mg Tab 325 Mg PO DAILY Colace (Docusate Sodium) 100 Mg Cap 100 Mg PO BID PRN Melatonin 10 Mg Tab 10 Mg PO HS PRN Albuterol Neb (Albuterol Sulfate) 2.5 Mg/0.5 Ml Neb 2.5 Mg NEB QID NEB Note: The Albuterol Sulfate Inhalation Solution is concentrated and must be diluted. Read complete instructions carefully before using. Ipratropium Neb (Ipratropium [place]) 0.5 Mg/2.5 Ml Amp 0.5 Mg NEB Q6HR NEB PRN Reported Simvastatin 20 Mg Tab 20 Mg PO BID Protonix (Pantoprazole Sodium) 20 Mg Tab 20 Mg PO DAILY Lisinopril 20 Mg Tab 20 Mg PO DAILY Digoxin 0.25 Mg Tab 0.25 Mg PO DAILY Combivent Respimat Inh (Ipratropium-Albuterol Inh) 20-100 Correction/Act Aero 1 Puff INH QID Aspirin Low Dose (Aspirin) 81 Mg Chew 81 Mg CHEW DAILY Proventil Hfa 6.7 GM Inh (Albuterol Sulfate) 90 Mcg/Act Aer 2 Puff INH Q6H PRN Advair Diskus Inh (Fluticasone-Salmeterol Inh) 100-50 Mcg/Blist Aer 1 Puff INH BID Rinse mouth after use. Amlodipine (Amlodipine Besylate) 2.5 Mg Tab 2.5 Mg PO DAILY Lantus Inj (Insulin Glargine) 1,000 Unit/10 Ml Vial 14 Units SQ DAILY Review of Systems Except as stated in HPI: all other systems reviewed are Neg General / Constitutional: No: Fever, Chills Cardiovascular: No: Chest Pain or Discomfort Respiratory: Positive: Cough, Shortness of Breath, Wheezing Physical Exam Narrative Vital Signs Date Time Temp Pulse Resp B/P Pulse Ox O2 Delivery O2 Flow Rate FiO2 05/29/16 23:51 97.9 103 24 151/66 96 Room Air GENERAL: Thin woman who is awake and alert. SKIN: Warm and dry. HEAD: Atraumatic. Normocephalic. EYES: Pupils equal and round. Extraocular movements are intact. ENT: No nasal bleeding or discharge. Mucous membranes pink and moist. NECK: Trachea midline. Neck is supple. CARDIOVASCULAR: Regular rate and rhythm. RESPIRATORY: Mild respiratory distress. She has decreased air movement throughout. Diffuse wheezing. GASTROINTESTINAL: Abdomen soft, non-tender, nondistended. MUSCULOSKELETAL: No obvious deformities. No edema. NEUROLOGICAL: Awake and alert. No obvious cranial nerve deficits. Motor grossly within normal limits. Normal speech. PSYCHIATRIC: Appropriate mood and affect; insight and judgment normal. Data Data Last Documented VS Vital Signs Date Time Temp Pulse Resp B/P Pulse Ox O2 Delivery O2 Flow Rate FiO2 05/30/16 03:30 98 18 128/74 99 Room Air 05/29/16 23:51 97.9 Orders Complete Blood Count With Diff (05/30/16 02:21) Basic Metabolic Panel (Bmp) (05/30/16 02:21) Iv Access Insert/Monitor (05/30/16 02:21) Ecg Monitoring (05/30/16 02:21) Oximetry (05/30/16 02:21) Oxygen Administration (05/30/16 02:21) Chest, Single Ap (05/30/16 02:21) Sodium Chloride 0.9% Flush (Ns Flush) (05/30/16 02:30) Methylprednisolone So Succ Inj (Solumedr (05/30/16 02:30) Albuterol-Ipratropium Neb (Duoneb Neb) (05/30/16 02:30) Albuterol-Ipratropium Neb (Duoneb Neb) (05/30/16 03:45) Labs Laboratory Tests Test 05/30/16 02:40 White Blood Count 7.4 TH/MM3 Red Blood Count 4.11 MIL/MM3 Hemoglobin 11.2 GM/DL Hematocrit 34.7 % Mean Corpuscular Volume 84.6 FL Mean Corpuscular Hemoglobin 27.3 PG Mean Corpuscular Hemoglobin 32.3 % Concent Red Cell Distribution Width 18.8 % Platelet Count 248 TH/MM3 Mean Platelet Volume 9.2 FL Neutrophils (%) (Auto) 68.1 % Lymphocytes (%) (Auto) 19.1 % Monocytes (%) (Auto) 7.8 % Eosinophils (%) (Auto) 4.2 % Basophils (%) (Auto) 0.8 % Neutrophils # (Auto) 5.1 TH/MM3 Lymphocytes # (Auto) 1.4 TH/MM3 Monocytes # (Auto) 0.6 TH/MM3 Eosinophils # (Auto) 0.3 TH/MM3 Basophils # (Auto) 0.1 TH/MM3 CBC Comment DIFF FINAL Differential Comment Sodium Level 142 MEQ/L Potassium Level 3.9 MEQ/L Chloride Level 108 MEQ/L Carbon Dioxide Level 27.2 MEQ/L Anion Gap 7 MEQ/L Blood Urea Nitrogen 10 MG/DL Creatinine 0.83 MG/DL Estimat Glomerular Filtration 83 ML/MIN Rate Random Glucose 97 MG/DL Calcium Level 9.1 MG/DL MDM Medical Decision Making Medical Screen Exam Complete: Yes Emergency Medical Condition: Yes Medical Record Reviewed: Yes (patient was admitted here on for a COPD exacerbation. She was discharged on steroids.) Differential Diagnosis Differential diagnosis of dyspnea includes but is not limited to congestive heart failure, pneumonia, wheezing, pneumothorax, pulmonary embolism Narrative Course Patient presents with shortness of breath. She has a history of COPD. Her exam is consistent with COPD. I have ordered Solu-Medrol and neb treatments. CBC & BMP Diagram 05/30/16 02:40 Last Impressions Chest X-Ray 05/30/16 0221 Signed Impressions: Service Date/Time: Monday, May 30, 2016 02:19 - CONCLUSION: Normal examination. Arsen Chiang MD Patient has had 3 nebulizer treatments. She is still quite tight. I will give her 3 more treatments. Patient has been given 3 more treatments. She is still tight but states that this is her baseline. She feels that she is stable to go home. Diagnosis Primary Impression: COPD exacerbation Patient Instructions: COPD (Chronic Obstructive Pulmonary Disease) (DC), General Instructions Scripts Prednisone (48) 10 mg tab Dose Pack 10 Mg Dspk10 Mg PO DIRECTED #1 DSPK Ref 0 Prov:Dominique Bernardo MD 05/30/16 Disposition: 01 DISCHARGE HOME Condition: Stable Dominique Bernardo MD May 30, 2016 02:36
[2016-05-30 02:49] LABS: AUTOMATED NEUTROPHIL # 5.1 TH/MM3 (1.8-7.7); BASOPHIL # 0.1 TH/MM3 (0-0.2); BASOPHIL % 0.8 % (0.0-2.0); EOSINOPHIL # 0.3 TH/MM3 (0-0.4); EOSINOPHIL % 4.2 % (0.0-4.0); HEMATOCRIT 34.7 % (35.0-46.0); HEMO FLAGS DIFF FINAL; LYMPH % 19.1 % (9.0-44.0); LYMPHOCYTE # 1.4 TH/MM3 (1.0-4.8); MEAN CELL VOLUME 84.6 FL (80.0-100.0); MEAN CORPUSCULAR HEMOGLOBIN 27.3 PG (27.0-34.0); MEAN CORPUSCULAR HGB CONC 32.3 % (32.0-36.0); MONO % 7.8 % (0.0-8.0); NEUT % 68.1 % (16.0-70.0); PLATELET COUNT 248 TH/MM3 (150-450); RED BLOOD COUNT 4.11 MIL/MM3 (4.00-5.30); RED CELL DISTRIBUTION WIDTH 18.8 % (11.6-17.2); WHITE BLOOD COUNT 7.4 TH/MM3 (4.0-11.0)
--- NOTE | 2016-05-30 02:49 | RADRPT ---
EXAM DATE/TIME: 05/30/2016 02:19 [facility] COMPARISON: CHEST SINGLE AP, May 12, 2016, 21:28. INDICATIONS : Shortness of breath. MEDICAL HISTORY : Chronic obstructive pulmonary disease. Emphysema. SURGICAL HISTORY : None. ENCOUNTER: Initial ACUITY: 1 day PAIN SCORE: 0/10 LOCATION: Bilateral chest FINDINGS: A single view of the chest demonstrates the lungs to be symmetrically aerated without evidence of mas s, infiltrate or effusion. The cardiomediastinal contours are unremarkable. Osseous structures are intact. CONCLUSION: Normal examination. Arsen Chiang MD on May 30, 2016 at 2:48 Board Certified Radiologist. This report was verified electronically.
[2016-05-30 03:24] LABS: BICARBONATE 27.2 MEQ/L (21.0-32.0); POTASSIUM 3.9 MEQ/L (3.5-5.1)
[2016-05-30 03:30] VITALS: BP 128/74; PULSE 98; RESP 18; O2SAT 99
[2016-05-30] MEDS ORDERED: PRED10PA2 PO (04:25)
== END 2016-05-30 04:38 | disposition home or self-care (01) ==
LOC: NEPC 23:49
DX: J44.1 Chronic obstructive pulmonary disease with (acute) exacerbation (principal); R05 Cough; I10 Essential (primary) hypertension; E78.00 Pure hypercholesterolemia, unspecified; E11.9 Type 2 diabetes mellitus without complications; K21.9 Gastro-esophageal reflux disease without esophagitis
CPT/HCPCS: 71010; 80048; 85025; 94640; 94664; 96374; 99283; J2930

== ENCOUNTER 2016-06-29 21:24 | Emergency (ER) | payer OTHER ==
[~2016-06-29] VITALS: Ht 152.4 cm; Wt 48.0 kg
[~2016-06-29 21:24] MED LIST changes: -BENZ100 PO; +PRED10PA2 PO; -PRED20 PO
[2016-06-29 21:26] VITALS: BP 177/97; PULSE 93; RESP 18; TEMP 97.8; O2SAT 96
[2016-06-29] MEDS ORDERED: CARD120T4 PO (22:13)
[2016-06-29] MEDS ORDERED: ASPIRIN 81 MG CHEW TAB PO ONE (22:15)
[2016-06-29] MEDS ORDERED: predniSONE 20 MG TAB PO ONE (22:15)
[2016-06-29] MEDS ORDERED: SODIUM CHLORIDE 0.9% FLUSH 10 ML FLUSH IVF PRN (22:15)
--- NOTE | 2016-06-29 22:17 | PD ---
HPI Chief Complaint: Respiratory Symptoms Time Seen by Provider: 22:12 Travel History International Travel<30 days: No Contact w/Intl Traveler<30days: No Traveled to known affect area: No History of Present Illness HPI Patient is a 65-year-old female presents emergency Department with shortness of breath. She states she has a COPD and states this feels like a moderate exacerbation. She rates her exacerbation at a 5 out of 10, 10 being the worst exacerbation of her life. States that she has been taking some inhalers at home without significant relief. She denies any chest pain or chest tightness to me. States just feels like she is difficulty getting a breath. Denies any fevers denies any congestion. States her symptoms have been since earlier tonight and gradually worsening. PFSH Past Medical History Hx Anticoagulant Therapy: Yes (aspirin) Arthritis: Yes Asthma: No Autoimmune Disease: No Blood Disorders: No Anxiety: No Depression: No Heart Rhythm Problems: Yes Cancer: No Cardiovascular Problems: Yes (HTN, TACHYCARDIA) High Cholesterol: Yes Chemotherapy: No Chest Pain: Yes Congestive Heart Failure: No COPD: Yes Cerebrovascular Accident: No Coronary Artery Disease: Yes Diabetes: Yes (TYPE 2) Patient Takes Glucophage: No Diminished Hearing: No Endocrine: Yes Gastrointestinal Disorders: Yes (acid reflux, hyperacidity) GERD: Yes Genitourinary: No Headaches: Yes Hiatal Hernia: No Hypertension: Yes Immune Disorder: No Implanted Vascular Access Dvce: Yes Kidney Stones: No Musculoskeletal: Yes (ARTHRITIS/LEFT HIP VASCULAR NECROSIS) Neurologic: Yes Psychiatric: No Reproductive: No Respiratory: Yes (COPD) Immunizations Current: No Migraines: No Pneumonia: Yes Radiation Therapy: No Renal Failure: No Seizures: No Sleep Apnea: Yes Thyroid Disease: No Ulcer: No Menopausal: Yes : 3 Para: 3 Miscarriage: 0 : 0 Past Surgical History Abdominal Surgery: No AICD: No Arteriovenous Shunt: No Cardiac Surgery: No Section: Yes Ear Surgery: No Endocrine Surgery: No Eye Surgery: No Genitourinary Surgery: No Gynecologic Surgery: Yes (cycst removed) Hysterectomy: Yes (HTN) Insulin Pump: No Joint Replacement: Yes (LEFT HIP) Oral Surgery: No Pacemaker: No Thoracic Surgery: Yes Other Surgery: Yes (LEFT HIP REPLACEMENT, LIGAMENTS IN FINGER, R CHEST TUBE ) Family History Family Hypercholesterolemia: Yes Social History Alcohol Use: No Tobacco Use: Yes (1 ppd) Substance Use: No Allergies-Medications (Allergen,Severity, Reaction): Coded Allergies: Hctz (Verified Adverse Reaction, Mild, Nausea and Malaise, 06/29/16) Pt does not want to take Reported Meds & Prescriptions Reported Meds & Active Scripts Active Prednisone 20 Mg Tab 40 Mg PO DAILY 5 Days Colace (Docusate Sodium) 100 Mg Cap 100 Mg PO BID PRN Melatonin 10 Mg Tab 10 Mg PO HS PRN Albuterol Neb (Albuterol Sulfate) 2.5 Mg/0.5 Ml Neb 2.5 Mg NEB QID NEB Note: The Albuterol Sulfate Inhalation Solution is concentrated and must be diluted. Read complete instructions carefully before using. Ipratropium Neb (Ipratropium [place]) 0.5 Mg/2.5 Ml Amp 0.5 Mg NEB Q6HR NEB PRN Reported Cardizem (Diltiazem HCl) 120 Mg Tab 240 Mg PO DAILY Simvastatin 20 Mg Tab 20 Mg PO BID Protonix (Pantoprazole Sodium) 20 Mg Tab 20 Mg PO DAILY Lisinopril 20 Mg Tab 20 Mg PO DAILY Combivent Respimat Inh (Ipratropium-Albuterol Inh) 20-100 Long Term/Act Aero 1 Puff INH QID Aspirin Low Dose (Aspirin) 81 Mg Chew 81 Mg CHEW DAILY Proventil Hfa 6.7 GM Inh (Albuterol Sulfate) 90 Mcg/Act Aer 2 Puff INH Q6H PRN Advair Diskus Inh (Fluticasone-Salmeterol Inh) 100-50 Mcg/Blist Aer 1 Puff INH BID Rinse mouth after use. Lantus Inj (Insulin Glargine) 1,000 Unit/10 Ml Vial 14 Units SQ DAILY Review of Systems Except as stated in HPI: all other systems reviewed are Neg Physical Exam Narrative GENERAL: [Well-developed well-nourished, minimally short of breath. SKIN: No rash no wound, warm and dry HEAD: Atraumatic. Normocephalic. EYES: Pupils equal and round. No scleral icterus. No injection or drainage. ENT: No nasal bleeding or discharge. Mucous membranes pink and moist. NECK: Trachea midline. No JVD. CARDIOVASCULAR: Regular rate and rhythm. No murmur appreciated. RESPIRATORY: No accessory muscle use. Minimal inspiratory and expiratory wheezing. Breath sounds equal bilaterally. No retractions, minimally tachypneic. Minimal increased work of breathing. GASTROINTESTINAL: Abdomen soft, non-tender, nondistended. Hepatic and splenic margins not palpable. MUSCULOSKELETAL: No obvious deformities. No clubbing. No cyanosis. No edema. NEUROLOGICAL: Awake and alert. No obvious cranial nerve deficits. Motor grossly within normal limits. Normal speech. PSYCHIATRIC: Appropriate mood and affect; insight and judgment normal. Data Data Last Documented VS Vital Signs Date Time Temp Pulse Resp B/P Pulse Ox O2 Delivery O2 Flow Rate FiO2 06/29/16 22:23 96 21 06/29/16 21:26 97.8 93 18 177/97 Room Air Orders Electrocardiogram (06/29/16 22:13) Complete Blood Count With Diff (06/29/16 22:13) Comprehensive Metabolic Panel (06/29/16 22:13) Magnesium (Mg) (06/29/16 22:13) Prothrombin Time / Inr (Pt) (06/29/16 22:13) Act Partial Throm Time (Ptt) (06/29/16 22:13) Troponin I (06/29/16 22:13) Chest, Single Ap (06/29/16 22:13) Ecg Monitoring (06/29/16 22:13) Iv Access Insert/Monitor (06/29/16 22:13) Oximetry (06/29/16 22:13) Oxygen Administration (06/29/16 22:13) Aspirin Chew (Aspirin Chew) (06/29/16 22:15) Sodium Chloride 0.9% Flush (Ns Flush) (06/29/16 22:15) Prednisone (Deltasone) (06/29/16 22:15) Albuterol-Ipratropium Neb (Duoneb Neb) (06/29/16 22:15) Resp Blood Gas Venous (06/29/16 ) Blood Gas Venous (Vbg) (06/29/16 22:30) Labs Laboratory Tests Test 06/29/16 06/29/16 22:25 22:30 White Blood Count 7.6 TH/MM3 Red Blood Count 4.39 MIL/MM3 Hemoglobin 12.5 GM/DL Hematocrit 38.5 % Mean Corpuscular Volume 87.8 FL Mean Corpuscular Hemoglobin 28.5 PG Mean Corpuscular Hemoglobin 32.4 % Concent Red Cell Distribution Width 20.3 % Platelet Count 265 TH/MM3 Mean Platelet Volume 9.6 FL Neutrophils (%) (Auto) 63.7 % Lymphocytes (%) (Auto) 20.9 % Monocytes (%) (Auto) 8.1 % Eosinophils (%) (Auto) 6.7 % Basophils (%) (Auto) 0.6 % Neutrophils # (Auto) 4.8 TH/MM3 Lymphocytes # (Auto) 1.6 TH/MM3 Monocytes # (Auto) 0.6 TH/MM3 Eosinophils # (Auto) 0.5 TH/MM3 Basophils # (Auto) 0.0 TH/MM3 CBC Comment DIFF FINAL Differential Comment Prothrombin Time 10.1 SEC Prothromb Time International 0.9 RATIO Ratio Activated Partial 25.3 SEC Thromboplast Time Sodium Level 139 MEQ/L Potassium Level 4.5 MEQ/L Chloride Level 106 MEQ/L Carbon Dioxide Level 26.7 MEQ/L Anion Gap 6 MEQ/L Blood Urea Nitrogen 10 MG/DL Creatinine 0.83 MG/DL Estimat Glomerular Filtration 83 ML/MIN Rate Random Glucose 149 MG/DL Calcium Level 9.2 MG/DL Magnesium Level 2.5 MG/DL Total Bilirubin 0.2 MG/DL Aspartate Amino Transf 32 U/L (AST/SGOT) Alanine Aminotransferase 35 U/L (ALT/SGPT) Alkaline Phosphatase 107 U/L Troponin I LESS THAN 0.02 NG/ML Total Protein 7.0 GM/DL Albumin 3.4 GM/DL Blood Gas Puncture Site IV Blood Gas Patient Temperature 98.6 Venous Blood pH 7.36 Venous Blood Partial Pressure 52 mmHg CO2 Venous Blood Partial Pressure 36 mmHg O2 Venous Blood HCO3 29 mmol/L Venous Blood Oxygen Saturation 65 % Venous Blood Oxygen Content 12.2 Vol % Venous Blood Base Excess 3.6 mmol/L Oxygen Delivery Device ROOM AIR Blood Gas Inspired Oxygen 21 % [facility] Medical Decision Making Medical Screen Exam Complete: Yes Emergency Medical Condition: Yes Interpretation(s) EKG shows sinus rhythm with normal axis and normal R-wave progression. No concerning ST T changes intervals within normal limits, this is normal EKG. Differential Diagnosis COPD exacerbation, ACS is highly unlikely, ND highly unlikely, pneumonia. Narrative Course Patient was roomed emergency department, she was given DuoNeb treatments, chest x-ray was reassuring, basic labs and troponin were reassuring. VBG showed no CO2 retention. She felt much better after her treatments, and requests discharge. I discussed the need follow-up with a primary care physician and return to ED criteria. She is stable for discharge this time is no indication further workup. Diagnosis Primary Impression: COPD exacerbation Med/Other Pt SpecificInfo: Prescription(s) given Scripts Prednisone 20 Mg Tab40 Mg PO DAILY 5 Days Ref 0 Prov:Fredo Panda MD 06/29/16 Disposition: 01 DISCHARGE HOME Condition: Stable Fredo Panda MD June 29, 2016 22:17
[2016-06-29] MEDS: RESP: ALBUTEROL 2.5 MG/IPRATROPIUM 0.5 MG NEB (SCH) INH ×2 (22:22→22:23)
[2016-06-29 22:23] VITALS: O2SAT 96
[2016-06-29 22:41] LABS: AUTOMATED NEUTROPHIL # 4.8 TH/MM3 (1.8-7.7); BASOPHIL % 0.6 % (0.0-2.0); EOSINOPHIL # 0.5 TH/MM3 (0-0.4); EOSINOPHIL % 6.7 % (0.0-4.0); HEMATOCRIT 38.5 % (35.0-46.0); HEMO FLAGS DIFF FINAL; LYMPH % 20.9 % (9.0-44.0); LYMPHOCYTE # 1.6 TH/MM3 (1.0-4.8); MEAN CELL VOLUME 87.8 FL (80.0-100.0); MEAN CORPUSCULAR HEMOGLOBIN 28.5 PG (27.0-34.0); MEAN CORPUSCULAR HGB CONC 32.4 % (32.0-36.0); MONO % 8.1 % (0.0-8.0); NEUT % 63.7 % (16.0-70.0); PLATELET COUNT 265 TH/MM3 (150-450); RED BLOOD COUNT 4.39 MIL/MM3 (4.00-5.30); RED CELL DISTRIBUTION WIDTH 20.3 % (11.6-17.2); WHITE BLOOD COUNT 7.6 TH/MM3 (4.0-11.0)
[2016-06-29 22:43] LABS: BLOOD GAS VENOUS BASE EXCESS 3.6 mmol/L (-2-2); BLOOD GAS VENOUS HCO3 29 mmol/L (22-26); BLOOD GAS VENOUS O2 CONTENT 12.2 Vol % (9.0-17.0); BLOOD GAS VENOUS O2 HGB SAT 65 % (70-76); BLOOD GAS VENOUS PCO2 52 mmHg (44-48); BLOOD GAS VENOUS PO2 36 mmHg (35-40); BLOOD GAS VENOUS pH 7.36 (7.360-7.400); CRITICAL VALUE NO; OXYGEN DEVICE ROOM AIR; TEMP CORR TO 98.6
[2016-06-29 22:44] LABS: DRAW SITE IV; FIO2 21 %; STAT YES
--- NOTE | 2016-06-29 22:48 | RADRPT ---
EXAM DATE/TIME: 06/29/2016 22:31 [facility] COMPARISON: CHEST SINGLE AP, May 30, 2016, 2:19. INDICATIONS : Shortness of breath. MEDICAL HISTORY : Chronic obstructive pulmonary disease. Emphysema. SURGICAL HISTORY : None. ENCOUNTER: Initial ACUITY: 1 day PAIN SCORE: 0/10 LOCATION: Bilateral chest FINDINGS: A single view of the chest demonstrates the lungs to be symmetrically aerated without evidence of mas s, infiltrate or effusion. The cardiomediastinal contours are unremarkable. Osseous structures are intact. There is prominence of the aortic knob is with calcification characteristic of atheroscleroti c vascular disease. CONCLUSION: 1. No acute cardiopulmonary disease. Rocco Lim MD on June 29, 2016 at 22:47 Board Certified Radiologist. This report was verified electronically.
[2016-06-29 22:58] LABS: APTT (PATIENT) 25.3 SEC (24.3-30.1); INTERNATIONAL NORMALIZED RATIO 0.9 RATIO; PROTHROMBIN TIME - PATIENT 10.1 SEC (9.8-11.6)
[2016-06-29 23:30] LABS: ALKALINE PHOSPHATASE 107 U/L (45-117); ALT (GPT) 35 U/L (10-53); ANION GAP 6 MEQ/L (5-15); AST (GOT) 32 U/L (15-37); BICARBONATE 26.7 MEQ/L (21.0-32.0); BLOOD UREA NITROGEN 10 MG/DL (7-18); CHLORIDE 106 MEQ/L (98-107); GLOMERULAR FILTRATION RATE 83 ML/MIN (>89); MAGNESIUM 2.5 MG/DL (1.5-2.5); SODIUM (NA) 139 MEQ/L (136-145); TOTAL BILIRUBIN ADULT 0.2 MG/DL (0.2-1.0)
[2016-06-29 23:35] LABS: POTASSIUM 4.5 MEQ/L (3.5-5.1)
[2016-06-29] MEDS ORDERED: PRED20 PO (23:51)
--- NOTE | 2016-06-30 14:29 | EKG ---
Date Performed: 06/30/2016 Time Performed: 00:02:13 PTAGE: 65 years EKG: Sinus rhythm Compared to previous tracing rate has slowed significantly with improvement in ST T segments NORMAL ECG PREVIOUS TRACING : 06/30/2016 00.01 DOCTOR: Bairon Capellan Interpretating Date/Time 06/30/2016 14:28:27
== END 2016-06-30 00:42 | disposition home or self-care (01) ==
LOC: NEPC 21:24
DX: J44.1 Chronic obstructive pulmonary disease with (acute) exacerbation (principal); E11.9 Type 2 diabetes mellitus without complications; I10 Essential (primary) hypertension; E78.00 Pure hypercholesterolemia, unspecified; G47.30 Sleep apnea, unspecified; F17.200 Nicotine dependence, unspecified, uncomplicated; Z79.82 Long term (current) use of aspirin; Z79.4 Long term (current) use of insulin; Z79.899 Other long term (current) drug therapy; Z87.39 Personal history of other diseases of the musculoskeletal system and connective tissue; Z86.79 Personal history of other diseases of the circulatory system; Z87.09 Personal history of other diseases of the respiratory system; Z87.19 Personal history of other diseases of the digestive system; Z86.69 Personal history of other diseases of the nervous system and sense organs
CPT/HCPCS: 71010; 80053; 82805; 83735; 84484; 85025; 85610; 85730; 93005; 94640; 94664; 99285; J7512

== ENCOUNTER 2016-07-06 21:46 | Emergency (ER) | payer OTHER ==
[~2016-07-06] VITALS: Ht 162.6 cm; Wt 70.0 kg
[~2016-07-06 21:46] MED LIST changes: -AMLO2.5T PO; +CARD120T4 PO; -DIGO0.25 PO; -FERR325T PO; -PRED10PA2 PO; +PRED20 PO
[2016-07-06 21:49] VITALS: BP 206/93; PULSE 107; RESP 20; TEMP 98.5; O2SAT 95
--- NOTE | 2016-07-06 21:53 | PD ---
Physical Exam Time Seen by Provider: 21:51 Narrative 65yo F c/o SOB with worsening today. Hx of COPD. +coughing. Denies wheezing. No relief with Albuterol INH. Also c/o L hip pain that radiates down L leg for 2 days. Hx of hip replacement. Denies injury. Patient seen in triage. VS reviewed. Awaiting bed placement. Data Data Last Documented VS Vital Signs Date Time Temp Pulse Resp B/P Pulse Ox O2 Delivery O2 Flow Rate FiO2 07/06/16 21:49 98.5 107 20 206/93 95 Room Air [facility] Supervised Visit with RADHA: Melissa Soliman July 06, 2016 21:53
[2016-07-06 22:08] VITALS: O2SAT 98
[2016-07-06 22:10] VITALS: PULSE 105; RESP 20; O2SAT 97
[2016-07-06] MEDS ORDERED: SODIUM CHLORIDE 0.9% FLUSH 10 ML FLUSH IVF PRN (22:15)
[2016-07-06] MEDS ORDERED: RESP: BUDESONIDE 0.5 MG/2 ML NEB NEB ONE (22:15)
[2016-07-06] MEDS ORDERED: methylPREDNISolone SOD SUCC 125 MG/2 ML VIAL IVP ONE (22:15)
--- NOTE | 2016-07-06 22:22 | PD ---
HPI Chief Complaint: Respiratory Symptoms Time Seen by Provider: 22:09 Travel History International Travel<30 days: No Contact w/Intl Traveler<30days: No Traveled to known affect area: No History of Present Illness HPI Patient is a 65-year-old female presenting to emergency evaluation of chest tightness and shortness of breath. Patient states she started to feel more short of breath yesterday, she has been painting at home and feels that the fumes could be exacerbating her symptoms. She denies any fever, chills, abdominal pain, headache. She reports chronic nasal congestion. She has occurring daily tobacco user with a history of COPD. Patient states her doctor started her on Chantix 4 days ago and told her not to quit just yet. Patient has an appointment with her primary doctor last week on Monday and she stated she was told that she would be prescribed steroids but when she went to the pharmacy, they were not there. PFSH Past Medical History Hx Anticoagulant Therapy: Yes (aspirin) Arthritis: Yes (left hip) Heart Rhythm Problems: Yes High Cholesterol: Yes Chest Pain: Yes COPD: Yes Coronary Artery Disease: Yes Diabetes: Yes (TYPE 2) Patient Takes Glucophage: Yes GERD: Yes Headaches: Yes Hypertension: Yes Implanted Vascular Access Dvce: Yes Neurologic: Yes Pneumonia: Yes Sleep Apnea: Yes Tetanus Vaccination: > 5 Years Influenza Vaccination: Yes Menopausal: Yes : 3 Para: 3 Miscarriage: 0 : 0 Past Surgical History Abdominal Surgery: No AICD: No Arteriovenous Shunt: No Cardiac Surgery: No Section: Yes Ear Surgery: No Endocrine Surgery: No Eye Surgery: No Genitourinary Surgery: No Hysterectomy: Yes Insulin Pump: No Joint Replacement: Yes (LEFT HIP) Oral Surgery: No Pacemaker: No Thoracic Surgery: Yes (CHEST TUBE) Family History Family Hypercholesterolemia: Yes Social History Alcohol Use: No Tobacco Use: Yes (1 ppd) Substance Use: No Allergies-Medications (Allergen,Severity, Reaction): Coded Allergies: Hctz (Verified Adverse Reaction, Mild, Nausea and Malaise, 07/06/16) Pt does not want to take Reported Meds & Prescriptions Reported Meds & Active Scripts Active Prednisone 20 Mg Tab 40 Mg PO DAILY 5 Days Melatonin 10 Mg Tab 10 Mg PO HS PRN Ipratropium Neb (Ipratropium [place]) 0.5 Mg/2.5 Ml Amp 0.5 Mg NEB Q6HR NEB PRN Reported Cardizem (Diltiazem HCl) 120 Mg Tab 240 Mg PO DAILY Simvastatin 20 Mg Tab 20 Mg PO BID Protonix (Pantoprazole Sodium) 20 Mg Tab 20 Mg PO DAILY Lisinopril 20 Mg Tab 20 Mg PO DAILY Combivent Respimat Inh (Ipratropium-Albuterol Inh) 20-100 Group Home/Act Aero 1 Puff INH QID Aspirin Low Dose (Aspirin) 81 Mg Chew 81 Mg CHEW DAILY Proventil Hfa 6.7 GM Inh (Albuterol Sulfate) 90 Mcg/Act Aer 2 Puff INH Q6H PRN Advair Diskus Inh (Fluticasone-Salmeterol Inh) 100-50 Mcg/Blist Aer 1 Puff INH BID Rinse mouth after use. Lantus Inj (Insulin Glargine) 1,000 Unit/10 Ml Vial 14 Units SQ DAILY Review of Systems Except as stated in HPI: all other systems reviewed are Neg General / Constitutional: No: Fever, Chills Eyes: No: Blurred Vision HENT: No: Headaches, Lightheadedness Cardiovascular: Positive: Dyspnea on exertion, No: Chest Pain or Discomfort Respiratory: Positive: Cough (productive), Shortness of Breath, Wheezing Gastrointestinal: Positive: Nausea, No: Vomiting, Diarrhea, Abdominal Pain Genitourinary: No: Dysuria Musculoskeletal: Positive: Myalgias, Pain (left hip) Neurologic: No: Weakness, Dizziness, Syncope, Focal Abnormalities Physical Exam Narrative GENERAL: Thin, well-developed, alert female. SKIN: Focused skin assessment warm/dry. HEAD: Atraumatic. Normocephalic. EYES: Pupils equal and round. No scleral icterus. No injection or drainage. ENT: No nasal bleeding or discharge. Mucous membranes pink and moist. NECK: Trachea midline. No JVD. CARDIOVASCULAR: Tachycardic. No murmur appreciated. RESPIRATORY: Tachypneic, significantly diminished breath sounds in bilateral bases with inspiratory and expiratory wheezing noted in upper lung grubbs bilaterally. No nasal flaring, no retractions GASTROINTESTINAL: Abdomen soft, non-tender, nondistended. Hepatic and splenic margins not palpable. MUSCULOSKELETAL: No obvious deformities. No clubbing. No cyanosis. No edema. NEUROLOGICAL: Awake and alert. No obvious cranial nerve deficits. Motor grossly within normal limits. Normal speech. PSYCHIATRIC: Appropriate mood and affect; insight and judgment normal. Data Data Last Documented VS Vital Signs Date Time Temp Pulse Resp B/P Pulse Ox O2 Delivery O2 Flow Rate FiO2 07/06/16 22:10 105 20 97 Room Air 07/06/16 21:49 98.5 206/93 Orders Complete Blood Count With Diff (07/06/16 22:07) Comprehensive Metabolic Panel (07/06/16 22:07) Act Partial Throm Time (Ptt) (07/06/16 22:07) Prothrombin Time / Inr (Pt) (07/06/16 22:07) Magnesium (Mg) (07/06/16 22:07) Ckmb (Isoenzyme) Profile (07/06/16 22:07) Troponin I (07/06/16 22:07) Iv Access Insert/Monitor (07/06/16 22:07) Electrocardiogram (07/06/16 22:07) Ecg Monitoring (07/06/16 22:07) Oximetry (07/06/16 22:07) Oxygen Administration (07/06/16 22:07) Chest, Single Ap (07/06/16 22:07) Sodium Chloride 0.9% Flush (Ns Flush) (07/06/16 22:15) Methylprednisolone So Succ Inj (Solumedr (07/06/16 22:15) Albuterol-Ipratropium Neb (Duoneb Neb) (07/06/16 22:15) Budesonide Neb (Pulmicort Respule Neb) (07/06/16 22:15) B-Type Natriuretic Peptide (07/06/16 22:07) MDM Medical Decision Making Medical Screen Exam Complete: Yes Emergency Medical Condition: Yes Interpretation(s) Vital Signs Date Time Temp Pulse Resp B/P Pulse Ox O2 Delivery O2 Flow Rate FiO2 07/06/16 21:53 22 07/06/16 21:49 98.5 107 20 206/93 95 Room Air Differential Diagnosis COPD exacerbation versus pneumonia versus PE versus CHF versus other Narrative Course Patient is a 65-year-old female presenting to emergency for evaluation of chest tightness and shortness of breath. Patient reports his shortness breath is a chronic issue for her secondary to COPD. She was painting her home yesterday which seemed to exacerbate her symptoms. IV access established, patient placed on telemetry monitoring and continuous pulse oximetry. Initial EKG shows sinus tachycardia with a rate of 104. Care of patient transferred to my attending physician at the end of my shift, she will determined patient's disposition. Radha Barnes July 06, 2016 22:22
--- NOTE | 2016-07-06 22:24 | RADRPT ---
EXAM DATE/TIME: 07/06/2016 22:19 [facility] COMPARISON: CHEST SINGLE AP, June 29, 2016, 22:31. INDICATIONS : Shortness of breath. MEDICAL HISTORY : Chronic obstructive pulmonary disease. Current smoker. SURGICAL HISTORY : None. ENCOUNTER: Initial ACUITY: 4 - 6 days PAIN SCORE: 0/10 LOCATION: Bilateral chest FINDINGS: A single view of the chest demonstrates the lungs to be symmetrically aerated without evidence of mas s, infiltrate or effusion. The cardiomediastinal contours are unremarkable. Osseous structures are intact. CONCLUSION: Normal examination. Refugio Brothers MD on July 06, 2016 at 22:22 Board Certified Radiologist. This report was verified electronically.
[2016-07-06] MEDS: RESP: ALBUTEROL 2.5 MG/IPRATROPIUM 0.5 MG NEB (SCH) INH ×2 (22:42→22:43)
[2016-07-06 22:49] LABS: AUTOMATED NEUTROPHIL # 7.5 TH/MM3 (1.8-7.7); BASOPHIL # 0.1 TH/MM3 (0-0.2); BASOPHIL % 0.6 % (0.0-2.0); EOSINOPHIL # 0.4 TH/MM3 (0-0.4); EOSINOPHIL % 3.6 % (0.0-4.0); HEMATOCRIT 38.5 % (35.0-46.0); HEMO FLAGS DIFF FINAL; LYMPH % 15.1 % (9.0-44.0); LYMPHOCYTE # 1.6 TH/MM3 (1.0-4.8); MEAN CELL VOLUME 86.8 FL (80.0-100.0); MEAN CORPUSCULAR HEMOGLOBIN 28.7 PG (27.0-34.0); MEAN CORPUSCULAR HGB CONC 33.1 % (32.0-36.0); MONO % 7.7 % (0.0-8.0); PLATELET COUNT 285 TH/MM3 (150-450); RED BLOOD COUNT 4.43 MIL/MM3 (4.00-5.30); RED CELL DISTRIBUTION WIDTH 20.1 % (11.6-17.2); WHITE BLOOD COUNT 10.3 TH/MM3 (4.0-11.0)
[2016-07-06 22:54] LABS: APTT (PATIENT) 23.4 SEC (24.3-30.1); INTERNATIONAL NORMALIZED RATIO 0.9 RATIO; PROTHROMBIN TIME - PATIENT 9.7 SEC (9.8-11.6)
[2016-07-06 23:10] LABS: ANION GAP 6 MEQ/L (5-15); AST (GOT) 36 U/L (15-37); BICARBONATE 31.6 MEQ/L (21.0-32.0); BLOOD UREA NITROGEN 10 MG/DL (7-18); CHLORIDE 101 MEQ/L (98-107); GLOMERULAR FILTRATION RATE 78 ML/MIN (>89); MAGNESIUM 2.2 MG/DL (1.5-2.5); POTASSIUM 4.5 MEQ/L (3.5-5.1); SODIUM (NA) 139 MEQ/L (136-145)
[2016-07-06 23:15] VITALS: BP 175/88; PULSE 115; RESP 20; O2SAT 97
[2016-07-06 23:21] LABS: ALKALINE PHOSPHATASE 89 U/L (45-117); ALT (GPT) 31 U/L (10-53); CREATINE KINASE 147 U/L (26-192); TOTAL BILIRUBIN ADULT 0.2 MG/DL (0.2-1.0)
[2016-07-06 23:33] LABS: CKMB 2.6 NG/ML (0.5-3.6)
[2016-07-07 00:26] LABS: BLOOD GAS BASE EXCESS 3.4 mmol/L (-2-2); BLOOD GAS CARBOXYHEMOGLOBIN 2.7 % (0-4); BLOOD GAS HCO3 28 mmol/L (22-26); BLOOD GAS METHEMOGLOBIN 0.8 % (0-2); BLOOD GAS O2 HGB SATURATION 90 % (90-100); BLOOD GAS PCO2 44 mmHg (38-42); BLOOD GAS PO2 70 mmHG (61-120); BLOOD GAS TOTAL HGB 12.6 G/DL (12.0-16.0); TEMP CORR TO 98.6
[2016-07-07 00:27] LABS: CRITICAL VALUE NO; DRAW SITE RT BRACHIAL; FIO2 21 %; NUMBER OF ARTERIAL PUNCTURES 1; OXYGEN DEVICE ROOMAIR; STAT YES
--- NOTE | 2016-07-07 00:30 | RADRPT ---
EXAM DATE/TIME: 07/07/2016 00:19 [facility] COMPARISON: No previous studies available for comparison. INDICATIONS : Left hip pain after fall. MEDICAL HISTORY : Chronic obstructive pulmonary disease. SURGICAL HISTORY : Left hip replacement. ENCOUNTER: Initial ACUITY: 1 day PAIN SCORE: 5/10 LOCATION: Left hip. FINDINGS: Examination of the left hip was performed with AP Pelvis. Patient's had a left total hip arthroplasty . The acetabulum is grossly intact. CONCLUSION: Status post left total hip arthroplasty without obvious complication. Arsen Chiang MD on July 07, 2016 at 0:27 Board Certified Radiologist. This report was verified electronically.
[2016-07-07] MEDS ORDERED: VENTAER INH (00:57)
[2016-07-07] MEDS ORDERED: PRED-503 PO (00:57)
--- NOTE | 2016-07-07 00:57 | PD ---
Physical Exam Narrative I, Dr. Lockhart, have reviewed the advance practice practitioner's documentation and am in agreement, met with the patient face to face, made the diagnosis, and the medical decision making was done by me. *My assessment and Findings: COPD exacerbation vs. pneumonia 65yo F with DM, HTN, COPD here with sob that feels like her COPD. She is wheezing and states her treatments at home didnt help. Pt had some chest tightness that is usually associated with her COPD. Denies any fever, nausea, vomiting, abdominal pain, focal weakness or numbness. Pt does have this chronic left hip that that she wants to be evaluated as well. States she had left hip replacement. Denies any fall or trauma. Pt able to ambulate. Pt initially with expiratory wheezing bilaterally. Pt given methylprednisolone 125mg IV, budesonide neb and duonebs. CXR normal. Xray left hip showed status post left total hip arthroplasty without obvious complication. Labs reviewed, no leukocytosis. Troponin negative. BNP negative. ABG showed normal pH 7.42 with chronic mildly elevated CO2 and compensated HCO3. O2 sat is 90% on RA. Pt reevaluated at bedside and feels better. SOB and chest tightness has improved. Lungs are clear and pt is speaking in complete sentences. O2sat 97% on RA. Pt wants to go home. Return precautions given. Data Data Last Documented VS Vital Signs Date Time Temp Pulse Resp B/P Pulse Ox O2 Delivery O2 Flow Rate FiO2 07/06/16 23:15 115 20 175/88 97 Room Air 07/06/16 21:49 98.5 Orders Complete Blood Count With Diff (07/06/16 22:07) Comprehensive Metabolic Panel (07/06/16 22:07) Act Partial Throm Time (Ptt) (07/06/16 22:07) Prothrombin Time / Inr (Pt) (07/06/16 22:07) Magnesium (Mg) (07/06/16 22:07) Ckmb (Isoenzyme) Profile (07/06/16 22:07) Troponin I (07/06/16 22:07) Iv Access Insert/Monitor (07/06/16 22:07) Electrocardiogram (07/06/16 22:07) Ecg Monitoring (07/06/16 22:07) Oximetry (07/06/16 22:07) Oxygen Administration (07/06/16 22:07) Chest, Single Ap (07/06/16 22:07) Sodium Chloride 0.9% Flush (Ns Flush) (07/06/16 22:15) Methylprednisolone So Succ Inj (Solumedr (07/06/16 22:15) Albuterol-Ipratropium Neb (Duoneb Neb) (07/06/16 22:15) Budesonide Neb (Pulmicort Respule Neb) (07/06/16 22:15) B-Type Natriuretic Peptide (07/06/16 22:07) CKMB (07/06/16 22:25) CKMB% (07/06/16 22:25) Hip, Uni(Ap&Lat) W Ap Pelvis (07/06/16 ) Arterial Blood Gas (Abg) (07/06/16 ) Labs Laboratory Tests Test 07/06/16 07/06/16 22:25 23:59 White Blood Count 10.3 TH/MM3 Red Blood Count 4.43 MIL/MM3 Hemoglobin 12.7 GM/DL Hematocrit 38.5 % Mean Corpuscular Volume 86.8 FL Mean Corpuscular Hemoglobin 28.7 PG Mean Corpuscular Hemoglobin 33.1 % Concent Red Cell Distribution Width 20.1 % Platelet Count 285 TH/MM3 Mean Platelet Volume 9.8 FL Neutrophils (%) (Auto) 73.0 % Lymphocytes (%) (Auto) 15.1 % Monocytes (%) (Auto) 7.7 % Eosinophils (%) (Auto) 3.6 % Basophils (%) (Auto) 0.6 % Neutrophils # (Auto) 7.5 TH/MM3 Lymphocytes # (Auto) 1.6 TH/MM3 Monocytes # (Auto) 0.8 TH/MM3 Eosinophils # (Auto) 0.4 TH/MM3 Basophils # (Auto) 0.1 TH/MM3 CBC Comment DIFF FINAL Differential Comment Prothrombin Time 9.7 SEC Prothromb Time International 0.9 RATIO Ratio Activated Partial 23.4 SEC Thromboplast Time Sodium Level 139 MEQ/L Potassium Level 4.5 MEQ/L Chloride Level 101 MEQ/L Carbon Dioxide Level 31.6 MEQ/L Anion Gap 6 MEQ/L Blood Urea Nitrogen 10 MG/DL Creatinine 0.88 MG/DL Estimat Glomerular Filtration 78 ML/MIN Rate Random Glucose 139 MG/DL Calcium Level 9.1 MG/DL Magnesium Level 2.2 MG/DL Total Bilirubin 0.2 MG/DL Aspartate Amino Transf 36 U/L (AST/SGOT) Alanine Aminotransferase 31 U/L (ALT/SGPT) Alkaline Phosphatase 89 U/L Total Creatine Kinase 147 U/L Creatine Kinase MB 2.6 NG/ML Troponin I LESS THAN 0.02 NG/ML B-Type Natriuretic Peptide LESS THAN 2 PG/ML Total Protein 6.8 GM/DL Albumin 3.3 GM/DL Blood Gas Puncture Site RT BRACHIAL Blood Gas Patient Temperature 98.6 Blood Gas HCO3 28 mmol/L Blood Gas Base Excess 3.4 mmol/L Blood Gas Oxygen Saturation 90 % Arterial Blood pH 7.42 Arterial Blood Partial 44 mmHg Pressure CO2 Arterial Blood Partial 70 mmHG Pressure O2 Arterial Blood Oxygen Content 16.0 Vol % Arterial Blood 2.7 % Carboxyhemoglobin Arterial Blood Methemoglobin 0.8 % Blood Gas Hemoglobin 12.6 G/DL Oxygen Delivery Device ROOMAIR Blood Gas Inspired Oxygen 21 % MDM Supervised Visit with RADHA: Yes Interpretation(s) EKG: Sinus tachycardia at 104bpm. Normal axis. No ST segment elevation or depression. Diagnosis Primary Impression: COPD exacerbation Patient Instructions: General Instructions Departure Forms: Tests/Procedures Additional Instruction: Please follow up with your PMD in 1-2 days. Return to the ED if symptoms worsen. Med/Other Pt SpecificInfo: Prescription(s) given Scripts Albuterol 18 GM Inh (Ventolin Hfa 18 GM Inh)90 Mcg/Act Aer2 Puff INH Q4H PRN ( SHORTNESS OF BREATH) #1 INHALER Ref 0 Prov:Nkechi Lockhart DO 07/07/16 Prednisone (Deltasone)20 Mg Tab20 Mg PO BID 5 Days Ref 0 Prov:Nkechi Lockhart DO 07/07/16 Disposition: 01 DISCHARGE HOME Condition: Stable Nkechi Lockhart DO July 07, 2016 00:57
--- NOTE | 2016-07-07 17:12 | EKG ---
Date Performed: 07/06/2016 Time Performed: 22:10:25 PTAGE: 65 years EKG: SINUS TACHYCARDIA POSSIBLE RIGHT ATRIAL ENLARGEMENT POSSIBLE LEFT ATRIAL ENLARGEMENT SEPTAL MYOCARDIAL INFARCTION ABNORMAL ECG Compared to the PREVIOUS TRACING from 06/30/16, no significant change DOCTOR: Gray Yadav Interpretating Date/Time 07/07/2016 17:10:57
== END 2016-07-07 01:15 | disposition home or self-care (01) ==
LOC: NEPE 21:46
DX: J44.1 Chronic obstructive pulmonary disease with (acute) exacerbation (principal); R00.0 Tachycardia, unspecified; F17.210 Nicotine dependence, cigarettes, uncomplicated; Z96.642 Presence of left artificial hip joint; I10 Essential (primary) hypertension; E11.9 Type 2 diabetes mellitus without complications; E78.00 Pure hypercholesterolemia, unspecified; Z79.82 Long term (current) use of aspirin; Z79.4 Long term (current) use of insulin
CPT/HCPCS: 36600; 71010; 73502; 80053; 82550; 82552; 82805; 83735; 83880; 84484; 85025; 85610; 85730; 93005; 96374; 99285; J2930; J7626

== ENCOUNTER → 2016-07-08 | Outpatient (CLI) | payer OTHER ==
[~2016-07-08] MED LIST changes: -ALBU.5I NEB; +BENZ100 PO; +CEFU1TAB20 PO; -COLA100C3 PO; +NICO14DI23 T-DERMAL; +PRED-503 PO; +PRED10PA PO; +VENTAER INH
[2016-07-08 12:27] LABS: BLOOD GAS BASE EXCESS 5.3 mmol/L (-2-2); BLOOD GAS CARBOXYHEMOGLOBIN 1.5 % (0-4); BLOOD GAS HCO3 29 mmol/L (22-26); BLOOD GAS METHEMOGLOBIN 1.4 % (0-2); BLOOD GAS O2 HGB SATURATION 91 % (90-100); BLOOD GAS OXYGEN CONTENT 16.2 Vol % (12.0-20.0); BLOOD GAS PCO2 41 mmHg (38-42); BLOOD GAS PO2 70 mmHg (61-120); BLOOD GAS TOTAL HGB 12.6 G/DL (12.0-16.0); TEMP CORR TO 98.6
[2016-07-08 12:28] LABS: CRITICAL VALUE NO; DRAW SITE RT RADIAL; FIO2 21 %; NUMBER OF ARTERIAL PUNCTURES 1; STAT NO; ULNAR PULSE PRESENT
--- NOTE | 2016-07-14 10:58 | RSPPFT ---
DATE OF PROCEDURE: 07/08/16 COMMENTS: VOLUMES DYNAMIC: FVC moderately reduced; FEV1 severely reduced. STATIC: FRC, RV and TLC are all severely increased. FLOWS: FEV1% and FEF 25-75 severely reduced. DIFFUSION: Unable to perform. FLOW VOLUME LOOP: Pattern of variable intrathoracic airways obstruction. IMPRESSION: Very severe obstructive ventilatory defect with significant hyperinflation. There is a significant improvement post-bronchodilator. Airways resistance is increased. Diffusion capacity was unable to be performed.
== END ==
LOC: HRSP 11:54
PROVIDERS: ATTEND Internal Medicine
DX: J44.9 Chronic obstructive pulmonary disease, unspecified (principal); R05 Cough
CPT/HCPCS: 36600; 82805; 94060; 94620; 94726

== ENCOUNTER 2016-07-10 14:03 | Inpatient (IN) | payer OTHER, MEDICARE ==
[2016-07-10] VITALS (11 sets, daily range): BP systolic 135–193; BP diastolic 60–105; PULSE 88–122; RESP 18–28; TEMP 97.7–98.1; O2SAT 90–99
[~2016-07-10] VITALS: Ht 154.9 cm; Wt 50.0 kg
[~2016-07-10 14:03] MED LIST changes: -BENZ100 PO; -CEFU1TAB20 PO; -NICO14DI23 T-DERMAL; -PRED10PA PO
[2016-07-10] MEDS ORDERED: methylPREDNISolone SOD SUCC 125 MG/2 ML VIAL IVP ONE (14:30)
[2016-07-10] MEDS ORDERED: SODIUM CHLORIDE 0.9% FLUSH 10 ML FLUSH IVF PRN (14:30)
[2016-07-10] MEDS: RESP: ALBUTEROL 2.5 MG/IPRATROPIUM 0.5 MG NEB (SCH) INH (14:33)
--- NOTE | 2016-07-10 14:50 | RADRPT ---
EXAM DATE/TIME: 07/10/2016 14:41 [facility] COMPARISON: CHEST SINGLE AP, July 06, 2016, 22:19. INDICATIONS : Cough with wheezing and shortness of breath. MEDICAL HISTORY : Chronic obstructive pulmonary disease. SURGICAL HISTORY : None. ENCOUNTER: Initial ACUITY: 1 day PAIN SCORE: 0/10 LOCATION: Bilateral chest FINDINGS: Portable AP view of the chest demonstrates a normal-sized cardiac silhouette. No effusion, consolidat ion, or pneumothorax is visualized. The bones and soft tissues demonstrate no acute abnormality. CONCLUSION: No acute cardiopulmonary abnormality is identified. Wolf Silva MD on July 10, 2016 at 14:48 Board Certified Radiologist. This report was verified electronically.
[2016-07-10 15:13] LABS: HEMATOCRIT 45.7 % (35.0-46.0); MEAN CELL VOLUME 89.8 FL (80.0-100.0); MEAN CORPUSCULAR HEMOGLOBIN 28.1 PG (27.0-34.0); MEAN CORPUSCULAR HGB CONC 31.3 % (32.0-36.0); PLATELET COUNT 261 TH/MM3 (150-450); RED BLOOD COUNT 5.09 MIL/MM3 (4.00-5.30); RED CELL DISTRIBUTION WIDTH 20.3 % (11.6-17.2); WHITE BLOOD COUNT 14.7 TH/MM3 (4.0-11.0)
[2016-07-10 15:15] LABS: HEMO FLAGS AUTO DIFF
[2016-07-10 15:31] LABS: ALKALINE PHOSPHATASE 98 U/L (45-117); ALT (GPT) 72 U/L (10-53); TOTAL BILIRUBIN ADULT 0.2 MG/DL (0.2-1.0)
[2016-07-10 15:43] LABS: ANION GAP 12 MEQ/L (5-15); AST (GOT) 33 U/L (15-37); BICARBONATE 29.5 MEQ/L (21.0-32.0); BLOOD UREA NITROGEN 12 MG/DL (7-18); CHLORIDE 94 MEQ/L (98-107); GLOMERULAR FILTRATION RATE 65 ML/MIN (>89); SODIUM (NA) 135 MEQ/L (136-145)
[2016-07-10 15:45] LABS: POTASSIUM 4.7 MEQ/L (3.5-5.1)
[2016-07-10 15:54] LABS: NEUTROPHIL # MANUAL DIFF 13.7 TH/MM3 (1.8-7.7); PLATELET ESTIMATE SMEAR NORMAL (NORMAL); PLATELET MORPHOLOGY NORMAL (NORMAL); POLYS (SEG NEUTROPHILS) 93 % (16-70); SCAN/DIFF FINAL DIFF MANUAL; TOXIC VACUOLATION PRESENT (NONE SEEN); WBC DIFF SAMPLE 100
[2016-07-10] MEDS ORDERED: RESP: ALBUTEROL 2.5 MG/3 ML NEB (SCH) NEB ONE (16:00)
[2016-07-10] MEDS ORDERED: LACTULOSE SYRUP 20 GM/30 ML CUP PO PRN (16:15)
[2016-07-10] MEDS ORDERED: SODIUM CHLORIDE 0.9% FLUSH 10 ML FLUSH IV FLUSH PRN (16:15)
[2016-07-10] MEDS ORDERED: DEXTROSE 50% IN WATER 50 ML VIAL(D50) IV PRN (16:15)
[2016-07-10] MEDS ORDERED: ENOXAPARIN SODIUM 40 MG/0.4 ML SYRINGE SQ SCH (16:15)
[2016-07-10] MEDS ORDERED: MAGNESIUM HYDROXIDE SUSP 30 ML CUP PO PRN (16:15)
[2016-07-10] MEDS ORDERED: SENNOSIDES 8.6 MG TAB PO PRN (16:15)
[2016-07-10] MEDS ORDERED: ONDANSETRON HCL 4 MG/2 ML VIAL IVP PRN (16:15)
[2016-07-10] MEDS ORDERED: GLUCAGON 1 MG/ML VIAL OTHER PRN (16:15)
--- NOTE | 2016-07-10 16:15 | HHI.HP ---
HPI Service [facility] Primary Care Physician Unknown Admission Diagnosis copd exacerbation Diagnoses: Chief Complaint: sob, wheezing Travel History International Travel<30 Days: No Contact w/Intl Traveler <30 Da: No Traveled to Known Affected Are: No History of Present Illness Very pleasant 65-year-old female in Malag[place], past medical history of COPD, tobaccoism, hypertension, diabetes, GERD, A. fib. The patient presents to the emergency room evaluation of failed outpatient treatment of COPD exacerbation. The patient says she was taking the prednisone taper dose at home and also nebulizers however she still feels shortness of breath and she is wheezing. Also complains of nonproductive cough. Denies fevers. No chills. No nausea, vomiting, diarrhea or constipation. Denies any abdominal pain. Denies chest pain of the patient's. No urinary complaints. Patient has a history of smoking one PPD, cutdown to half a pack per day for the past months. Says she was not smoking for the past 2 days. Says she's he started taking very medically for smoking cessation. Review of Systems Except as stated in HPI: all other systems reviewed are Neg Past Family Social History Past Medical History COPD HTN IDDM AFib Past Surgical History Hip replacement Torn ligament on fingers sx Reported Medications Reported Meds & Active Scripts Active Ventolin Hfa 18 GM Inh (Albuterol Sulfate) 90 Mcg/Act Aer 2 Puff INH Q4H PRN Deltasone (Prednisone) 20 Mg Tab 20 Mg PO BID 5 Days Melatonin 10 Mg Tab 10 Mg PO HS PRN Ipratropium Neb (Ipratropium [place]) 0.5 Mg/2.5 Ml Amp 0.5 Mg NEB Q6HR NEB PRN Reported Cardizem (Diltiazem HCl) 120 Mg Tab 240 Mg PO DAILY Simvastatin 20 Mg Tab 20 Mg PO BID Protonix (Pantoprazole Sodium) 20 Mg Tab 20 Mg PO DAILY Lisinopril 20 Mg Tab 20 Mg PO DAILY Combivent Respimat Inh (Ipratropium-Albuterol Inh) 20-100 Long-Term/Act Aero 1 Puff INH QID Aspirin Low Dose (Aspirin) 81 Mg Chew 81 Mg CHEW DAILY Proventil Hfa 6.7 GM Inh (Albuterol Sulfate) 90 Mcg/Act Aer 2 Puff INH Q6H PRN Advair Diskus Inh (Fluticasone-Salmeterol Inh) 100-50 Mcg/Blist Aer 1 Puff INH BID Rinse mouth after use. Lantus Inj (Insulin Glargine) 1,000 Unit/10 Ml Vial 14 Units SQ DAILY Allergies: Coded Allergies: Hctz (Verified Adverse Reaction, Mild, Nausea and Malaise, 07/06/16) Pt does not want to take Family History Father HTN and diabetes Mother HTN Social History Denies tobacco use, EtOH use or illicit drug use Physical Exam Vital Signs Vital Signs Date Time Temp Pulse Resp B/P Pulse Ox O2 Delivery O2 Flow Rate FiO2 07/10/16 15:34 115 22 164/72 98 Nasal Cannula 3 07/10/16 15:34 98 Nasal Cannula 3 07/10/16 14:34 99 Nasal Cannula 3.00 07/10/16 14:10 110 22 193/93 94 07/10/16 14:05 97.7 122 28 135/105 90 Physical Exam GENERAL: This is a pleasant very seen female, well-nourished, well-developed patient, wheezing with shortness of breath, speaking in short sentences due to shortness of breath. SKIN: No rashes, ecchymoses or lesions. Cool and dry. HEAD: Atraumatic. Normocephalic. No temporal or scalp tenderness. EYES: Pupils equal round and reactive. Extraocular motions intact. No scleral icterus. No injection or drainage. ENT: Nose without bleeding, purulent drainage or septal hematoma. Throat without erythema, tonsillar hypertrophy or exudate. Uvula midline. Airway patent. NECK: Trachea midline. No JVD or lymphadenopathy. Supple, nontender, no meningeal signs. CARDIOVASCULAR: Regular rate and rhythm without murmurs, gallops, or rubs. RESPIRATORY: Shortness of breath, cough nonproductive. Decreased breath sounds. Scattered wheezing. No accessory muscle use. GASTROINTESTINAL: Abdomen soft, non-tender, nondistended. No hepato-splenomegaly , or palpable masses. No guarding. MUSCULOSKELETAL: Extremities without clubbing, cyanosis, or edema. No joint tenderness, effusion, or edema noted. No calf tenderness. Negative Homans sign bilaterally. NEUROLOGICAL: Awake and alert. Cranial nerves II through XII intact. Motor and sensory grossly within normal limits. Five out of 5 muscle strength in all muscle groups. Normal speech. Laboratory Laboratory Tests Test 07/10/16 14:40 White Blood Count 14.7 Red Blood Count 5.09 Hemoglobin 14.3 Hematocrit 45.7 Mean Corpuscular Volume 89.8 Mean Corpuscular Hemoglobin 28.1 Mean Corpuscular Hemoglobin 31.3 Concent Red Cell Distribution Width 20.3 Platelet Count 261 Mean Platelet Volume 10.2 Neutrophils (%) (Auto) Lymphocytes (%) (Auto) Monocytes (%) (Auto) Eosinophils (%) (Auto) Basophils (%) (Auto) Neutrophils # (Auto) Lymphocytes # (Auto) Monocytes # (Auto) Eosinophils # (Auto) Basophils # (Auto) CBC Comment AUTO DIFF Differential Total Cells 100 Counted Neutrophils % (Manual) 93 Lymphocytes % 2 Monocytes % 5 Neutrophils # (Manual) 13.7 Differential Comment FINAL DIFF MANUAL Toxic Vacuolation PRESENT Platelet Estimate NORMAL Platelet Morphology Comment NORMAL Red Cell Morphology Comment NORMAL Sodium Level 135 Potassium Level 4.7 Chloride Level 94 Carbon Dioxide Level 29.5 Anion Gap 12 Blood Urea Nitrogen 12 Creatinine 1.03 Estimat Glomerular Filtration 65 Rate Random Glucose 359 Calcium Level 10.1 Total Bilirubin 0.2 Aspartate Amino Transf 33 (AST/SGOT) Alanine Aminotransferase 72 (ALT/SGPT) Alkaline Phosphatase 98 B-Type Natriuretic Peptide LESS THAN 2 Total Protein 7.5 Albumin 3.6 Result Diagram: 07/10/16 1440 07/10/16 1440 Assessment and Plan Assessment and Plan 65-year-old female with past mental history of COPD, A. fib, DM, HTN who presented with shortness of breath COPD with acute exacerbation with failed OP treatment. Chest x-ray reviewed and no evidence of infiltrate. Afebrile, mild leukocytosis 14K however patient was on tapered steroids as OP. Currently satting well on 2L NC. Solu-Medrol IV taper as tolerated. Continue scheduled and as needed nebs. O2 as needed. Check D Dimer. Mucinex for cough. Consult her pulm Dr Queta Katz. Diabetes mellitus: Chronic. Continue home Levemir. Additional coverage with SSI with Accu-Cheks especially while on steroids. Atrial fibrillation: Chronic. Continue aspirin and cardizem. Monitor on telemetry. HTR in 110s after nebs x3 in ED. HTN: monitor VS, continue cardizem hold lisinopril as noted mild increase in Cr PHIL: Hold lisinopril. Encourage PO hydration. Monitor kidney function. Other chronic medical conditions include GERD, hyperlipidemia, hypertension: Stable at this time and will continue home medications as indicated. DVT prophylaxis: Lovenox Code Status Full code Discussed Condition With Patient, nurse, ED physician. Jody Sung MD July 10, 2016 16:15
[2016-07-10] MEDS ORDERED: MELATONIN 5 MG TAB PO PRN (17:00)
[2016-07-10] MEDS: ACETAMINOPHEN 325 MG TAB PO PRN (17:01)
[2016-07-10] MEDS: ENOXAPARIN SODIUM 40 MG/0.4 ML SYRINGE SQ SCH (17:14)
[2016-07-10] MEDS: INSULIN ASPART SUPPLEMENTAL SCALE SQ SCH ×2 (17:14→20:12)
--- NOTE | 2016-07-10 17:56 | PD ---
HPI Chief Complaint: Respiratory Symptoms Time Seen by Provider: 14:17 Travel History International Travel<30 days: No Contact w/Intl Traveler<30days: No Traveled to known affect area: No History of Present Illness HPI This is a 65-year-old female who has a history of COPD who presents to the emergency department with increasing shortness of breath it's been worsening over the past 2-3 days, constant, moderate severity, associated with a productive cough with clear sputum. Patient was seen here in the emergency department 4 days ago in the setting of similar symptoms. She was discharged on prednisone and bronchodilators which she's been using. She said she felt better for a day or 2 but over the past 2 days she's been getting worse and her albuterol isn't helping her anymore. She denies any chest pain, fevers or chills. She doesn't use oxygen at home. PFSH Past Medical History Hx Anticoagulant Therapy: Yes (aspirin) Arthritis: Yes (left hip) Asthma: Yes Heart Rhythm Problems: Yes High Cholesterol: Yes Chest Pain: Yes COPD: Yes Coronary Artery Disease: Yes Diabetes: Yes (TYPE 2) Patient Takes Glucophage: No Gastrointestinal Disorders: Yes (acid reflux, hyperacidity) GERD: Yes Headaches: Yes Hypertension: Yes Implanted Vascular Access Dvce: Yes Neurologic: Yes Pneumonia: Yes Sleep Apnea: Yes Tetanus Vaccination: > 5 Years Influenza Vaccination: Yes ?: Not Menopausal: Yes : 3 Para: 3 Miscarriage: 0 : 0 Past Surgical History Abdominal Surgery: No AICD: No Arteriovenous Shunt: No Body Medical Devices: LEFT HIP REPLACEMENT Cardiac Surgery: No Section: Yes Ear Surgery: No Endocrine Surgery: No Eye Surgery: No Genitourinary Surgery: No Hysterectomy: Yes Insulin Pump: No Joint Replacement: Yes (LEFT HIP) Oral Surgery: No Pacemaker: No Thoracic Surgery: Yes (CHEST TUBE) Other Surgery: Yes (LEFT HIP REPLACEMENT, LIGAMENTS IN FINGER, R CHEST TUBE ) Family History Family Hypercholesterolemia: Yes Social History Alcohol Use: No Tobacco Use: Yes (1 ppd) Substance Use: No Allergies-Medications (Allergen,Severity, Reaction): Coded Allergies: Hctz (Verified Adverse Reaction, Mild, Nausea and Malaise, 07/06/16) Pt does not want to take Reported Meds & Prescriptions Reported Meds & Active Scripts Active Ventolin Hfa 18 GM Inh (Albuterol Sulfate) 90 Mcg/Act Aer 2 Puff INH Q4H PRN Deltasone (Prednisone) 20 Mg Tab 20 Mg PO BID 5 Days Melatonin 10 Mg Tab 10 Mg PO HS PRN Ipratropium Neb (Ipratropium [place]) 0.5 Mg/2.5 Ml Amp 0.5 Mg NEB Q6HR NEB PRN Reported Cardizem (Diltiazem HCl) 120 Mg Tab 240 Mg PO DAILY Simvastatin 20 Mg Tab 20 Mg PO BID Protonix (Pantoprazole Sodium) 20 Mg Tab 20 Mg PO DAILY Lisinopril 20 Mg Tab 20 Mg PO DAILY Combivent Respimat Inh (Ipratropium-Albuterol Inh) 20-100 Intermediate/Act Aero 1 Puff INH QID Aspirin Low Dose (Aspirin) 81 Mg Chew 81 Mg CHEW DAILY Proventil Hfa 6.7 GM Inh (Albuterol Sulfate) 90 Mcg/Act Aer 2 Puff INH Q6H PRN Advair Diskus Inh (Fluticasone-Salmeterol Inh) 100-50 Mcg/Blist Aer 1 Puff INH BID Rinse mouth after use. Lantus Inj (Insulin Glargine) 1,000 Unit/10 Ml Vial 14 Units SQ DAILY Review of Systems Except as stated in HPI: all other systems reviewed are Neg Physical Exam Narrative GENERAL: Uncomfortable appearing. SKIN: Focused skin assessment warm and dry. HEAD: Atraumatic. Normocephalic. EYES: Pupils equal and round. No injection or drainage. ENT: Moist mucous membranes NECK: Trachea midline. CARDIOVASCULAR: Tachycardic. No murmur appreciated. RESPIRATORY: Diffusely wheezing, tachypneic, poor air movement GASTROINTESTINAL: Abdomen soft, non-tender, nondistended. MUSCULOSKELETAL: No obvious deformities. NEUROLOGICAL: Awake and alert. No obvious cranial nerve deficits. Moving all extremities. PSYCHIATRIC: Appropriate mood and affect; insight and judgment normal. Data Data Last Documented VS Vital Signs Date Time Temp Pulse Resp B/P Pulse Ox O2 Delivery O2 Flow Rate FiO2 07/10/16 15:34 115 22 164/72 98 Nasal Cannula 3 07/10/16 14:05 97.7 Orders Electrocardiogram (07/10/16 14:20) Complete Blood Count With Diff (07/10/16 14:20) Comprehensive Metabolic Panel (07/10/16 14:20) Chest, Single Ap (07/10/16 14:20) Ecg Monitoring (07/10/16 14:20) Iv Access Insert/Monitor (07/10/16 14:20) Oximetry (07/10/16 14:20) Oxygen Administration (07/10/16 14:20) Methylprednisolone So Succ Inj (Solumedr (07/10/16 14:30) Albuterol-Ipratropium Neb (Duoneb Neb) (07/10/16 14:30) Sodium Chloride 0.9% Flush (Ns Flush) (07/10/16 14:30) B-Type Natriuretic Peptide (07/10/16 14:20) Albuterol Neb (Albuterol Neb) (07/10/16 16:00) Admit Order (Ed Use Only) (07/10/16 16:07) Place In Observation (07/10/16 ) Vital Signs (Adult) Q4H (07/10/16 16:05) Sodium Chloride 0.9% Flush (Ns Flush) (07/10/16 16:15) Sodium Chloride 0.9% Flush (Ns Flush) (07/10/16 21:00) Acetaminophen (Tylenol) (07/10/16 16:15) Ondansetron Inj (Zofran Inj) (07/10/16 16:15) Basic Metabolic Panel (Bmp) (07/11/16 06:00) Complete Blood Count With Diff (07/11/16 06:00) Resp Oxygen Franki C Titrat 1-4 L (07/10/16 ) Pt Request For Service (07/10/16 16:05) Enoxaparin Inj (Lovenox Inj) (07/10/16 16:15) Alessio Bilateral/Knee High SILVIA.QSHIFT (07/10/16 16:05) Docusate Sodium-Senna (Radha-Colace) (07/10/16 21:00) Magnesium Hydroxide Liq (Milk Of Magnesi (07/10/16 16:15) Sennosides (Senokot) (07/10/16 16:15) Lactulose Liq (Lactulose Liq) (07/10/16 16:15) Albuterol-Ipratropium Neb (Duoneb Neb) (07/10/16 20:00) Albuterol-Ipratropium Neb (Duoneb Neb) (07/10/16 16:15) Methylprednisolone So Succ Inj (Solumedr (07/10/16 18:00) D-Dimer (07/10/16 16:05) Labs Laboratory Tests Test 07/10/16 14:40 White Blood Count 14.7 TH/MM3 Red Blood Count 5.09 MIL/MM3 Hemoglobin 14.3 GM/DL Hematocrit 45.7 % Mean Corpuscular Volume 89.8 FL Mean Corpuscular Hemoglobin 28.1 PG Mean Corpuscular Hemoglobin 31.3 % Concent Red Cell Distribution Width 20.3 % Platelet Count 261 TH/MM3 Mean Platelet Volume 10.2 FL Neutrophils (%) (Auto) % Lymphocytes (%) (Auto) % Monocytes (%) (Auto) % Eosinophils (%) (Auto) % Basophils (%) (Auto) % Neutrophils # (Auto) TH/MM3 Lymphocytes # (Auto) TH/MM3 Monocytes # (Auto) TH/MM3 Eosinophils # (Auto) TH/MM3 Basophils # (Auto) TH/MM3 CBC Comment AUTO DIFF Differential Total Cells 100 Counted Neutrophils % (Manual) 93 % Lymphocytes % 2 % Monocytes % 5 % Neutrophils # (Manual) 13.7 TH/MM3 Differential Comment FINAL DIFF MANUAL Toxic Vacuolation PRESENT Platelet Estimate NORMAL Platelet Morphology Comment NORMAL Red Cell Morphology Comment NORMAL Sodium Level 135 MEQ/L Potassium Level 4.7 MEQ/L Chloride Level 94 MEQ/L Carbon Dioxide Level 29.5 MEQ/L Anion Gap 12 MEQ/L Blood Urea Nitrogen 12 MG/DL Creatinine 1.03 MG/DL Estimat Glomerular Filtration 65 ML/MIN Rate Random Glucose 359 MG/DL Calcium Level 10.1 MG/DL Total Bilirubin 0.2 MG/DL Aspartate Amino Transf 33 U/L (AST/SGOT) Alanine Aminotransferase 72 U/L (ALT/SGPT) Alkaline Phosphatase 98 U/L B-Type Natriuretic Peptide LESS THAN 2 PG/ML Total Protein 7.5 GM/DL Albumin 3.6 GM/DL [facility] Medical Decision Making Medical Screen Exam Complete: Yes Emergency Medical Condition: Yes Interpretation(s) Afebrile, tachycardic, tachypneic, hypertensive, hypoxic Leukocytosis with 93% neutrophils Mild hyponatremia BNP is normal Chest x-ray: No acute process Differential Diagnosis COPD exacerbation, pneumonia, congestive heart failure, myocardial infarction, pulmonary embolism Narrative Course This is a 65-year-old female who has a history of COPD who presents to the emergency department with increasing wheezing over the past 2 days. She is diffusely wheezing on exam with poor air movement. She was given serial bronchodilators treatments and IV steroids. Chest x-ray demonstrates no pneumonia. I considered pulmonary embolism but her physical exam demonstrates diffuse wheezing so I suspect this is more likely reactive airway disease. On reassessment she still has poor air movement but subjectively feels a little bit better. Labs were obtained which were reassuring. Patient will be admitted for further pulmonary management. Physician Communication Physician Communication Discussed with Dr. Sung Diagnosis Primary Impression: COPD exacerbation Admitting Information Admitting Physician Requests: Observation Kira Almonte MD July 10, 2016 17:56
[2016-07-10] MEDS ORDERED: BENZONATATE 100 MG CAP PO PRN (18:00)
[2016-07-10] MEDS: hydrALAZINE HCL 10 MG TAB PO PRN (18:30)
[2016-07-10] MEDS: methylPREDNISolone SOD SUCC 40 MG/1 ML VIAL IV PUSH SCH ×2 (18:31→23:25)
[2016-07-10] MEDS: RESP: ALBUTEROL 2.5 MG/IPRATROPIUM 0.5 MG NEB (SCH) NEB (19:19)
--- NOTE | 2016-07-10 19:19 | EKG ---
Date Performed: 07/10/2016 Time Performed: 16:11:31 PTAGE: 65 years EKG: SINUS TACHYCARDIA POSSIBLE RIGHT ATRIAL ENLARGEMENT POSSIBLE LEFT ATRIAL ENLARGEMENT ABNORM AL RHYTHM ECG NO PREVIOUS TRACING DOCTOR: Dexter Hickey Interpretating Date/Time 07/10/2016 19:17:56
[2016-07-10] MEDS: PRAVASTATIN SOD 80 MG TAB PO SCH (20:12)
[2016-07-10] MEDS: BUDESONIDE-FORMOTEROL 80/4.5 MCG INHALER INH SCH (20:12)
[2016-07-10] MEDS: DOCUSATE SODIUM 50 MG/SENNA 8.6 MG TAB PO SCH (20:12)
[2016-07-10] MEDS: guaiFENesin E.R. 600 MG TAB PO SCH (20:12)
[2016-07-10] MEDS: SODIUM CHLORIDE 0.9% FLUSH 10 ML FLUSH IV FLUSH SCH (20:12)
--- NOTE | 2016-07-10 20:34 | MB ---
cc: ALIX HUBBARD ANNIE DO DATE OF CONSULTATION 07/10/[address] Jody Sung. REASON FOR CONSULTATION History of chronic obstructive pulmonary disease exacerbation. HISTORY OF THE PRESENT ILLNESS Ms. Aquino is a 66-year-old female with history of severe COPD. She uses nebulizer treatment at home, not steroid dependent. Does not use any oxygen at home. She has a long history of smoking and continues to smoke though she has cut down to half-pack a day. She was recently started on Chantix which is helping her to cut down on cigarettes. She came to the hospital with a 2-3 day history of worsening of her shortness of breath. She has wheezing, cough, small amount of sputum production. Did not have fever or chills. No night sweats. No chest pain. With these symptoms she came to the hospital. She had a workup done. IMAGING Her chest x-ray shows no acute cardiopulmonary abnormality. LABORATORY DATA WBC count is 14.7, hemoglobin 14.3, hematocrit 45.7, MCV 89, platelet count 261. Sodium 135, potassium 4.7, chloride 94, CO2 29, BUN 12, creatinine 1.03. Blood gas on room air pH 7.47, pCO2 41 and pO2 72. PAST MEDICAL HISTORY Significant for: 1. History of COPD. 2. Hypertension. 3. Diabetes mellitus. 4. Hyperlipidemia. 5. History of tendon repair in the finger. 6. History of hip replacement. MEDICATIONS She is currently takin. Insulin 14 units. 2. Protonix 20 milligrams daily. 3. Diltiazem 240 mg a day. 4. Symbicort 80/4.5 two puffs twice a day. 5. Pravastatin 80 mg a day. 6. Albuterol/Atrovent nebulizer treatment. 7. Solu-Medrol 40 mg q. 6-hour. 8. Tessalon 100 milligrams three times a day. 9. Prilosec 10 milligrams q. 6 hours p.r.n. 10. Lovenox 40 mg a day. ALLERGIES SHE IS ALLERGIC TO HYDROCHLOROTHIAZIDE. SOCIAL HISTORY She has long history of smoking and continues to smoke a half-pack a day which she recently decreased. No alcohol use. 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 FAMILY HISTORY She has three children. REVIEW OF SYSTEMS She denies any weight loss. No malignancy. No DVT or pulmonary embolism. No seizure, stroke or epilepsy. PHYSICAL EXAMINATION GENERAL: Shows a thin built, frail elderly female, mild short of breath. VITAL SIGNS: Blood pressure 141/60, heart rate 94, respirations 20, temperature 98.1. HEENT: Pupils are equal and reactive to light. She has bilateral cataracts. Oral mucosa, nasal mucosa normal. NECK: Supple. JVP not raised. CHEST: Air entry equal bilaterally. She has hyperresonant chest. Has expiratory rhonchi. CARDIOVASCULAR: S1, S2 normal. ABDOMEN: Soft, nondistended. Bowel sounds are present. EXTREMITIES: No edema. IMPRESSION 1. Severe COPD. 2. COPD exacerbation. 3. Bronchitis. 4. Diabetes mellitus. 5. Hypertension. 6. Atrial fibrillation. 7. History of nicotine use. PLAN I advised her strongly to quit smoking. We will give her IV Solu-Medrol. We will give her antibiotic. Aerosol treatment with albuterol/Atrovent. Symbicort twice a day. She will continue with oxygen to keep her saturation than 90%. Further treatment will depend on the course in the hospital. Thank you Dr. Sung for this consultation. MD DANYELL Hope/CAMRYN /8:12 PM /8:20 PM [place]
[2016-07-10] MEDS ORDERED: INSULIN ASPART SUPPLEMENTAL SCALE SQ SCH (21:00)
[2016-07-10] MEDS: RESP: ALBUTEROL 2.5 MG/IPRATROPIUM 0.5 MG NEB (PRN) NEB (23:44)
[2016-07-11] VITALS (20 sets, daily range): BP systolic 131–171; BP diastolic 60–88; PULSE 83–94; RESP 22–30; TEMP 97.4–98.4; O2SAT 93–100
[2016-07-11] MEDS ORDERED: methylPREDNISolone SOD SUCC 125 MG/2 ML VIAL IV PUSH STA (00:05)
--- NOTE | 2016-07-11 00:30 | HHI.PR ---
Blank section for building Received urgent call from RN concerned regarding respiratory rate Patient evaluated and reports feeling very SOB. only able to talk one to words at a time respiratory rate 30 breaths per minute- appears to be in distress cardiac: regular rhythm no murmurs appreciated respiratory: tachypneic with poor air entry both inspiratory and expiratory wheezes respiratory distress acute exacerbation of COPD patient give 40 mg IV solumedrol- ordered additional 60mg IV solumedrol duonebs ordered and given by RT STAT ABG ordered STAT CXR ordered transfer to ICU for Bipap Discussed with patient, nursing, RT and Shameka Lemons July 11, 2016 00:30
--- NOTE | 2016-07-11 01:09 | RADRPT ---
EXAM DATE/TIME: 07/11/2016 00:35 [facility] COMPARISON: CHEST SINGLE AP, July 10, 2016, 14:41. INDICATIONS : Short of breath. COPD exacerbation. MEDICAL HISTORY : Chronic obstructive pulmonary disease. SURGICAL HISTORY : None. ENCOUNTER: Initial ACUITY: 1 day PAIN SCORE: 0/10 LOCATION: Bilateral chest FINDINGS: A single view of the chest demonstrates the lungs to be symmetrically aerated without evidence of mas s, infiltrate or effusion. The cardiomediastinal contours are unremarkable. Osseous structures are intact. CONCLUSION: No acute disease. Wolf Johnson MD on July 11, 2016 at 1:06 Board Certified Radiologist. This report was verified electronically.
[2016-07-11 01:10] LABS: BLOOD GAS BASE EXCESS 6.7 mmol/L (-2-2); BLOOD GAS CARBOXYHEMOGLOBIN 1.1 % (0-4); BLOOD GAS HCO3 31 mmol/L (22-26); BLOOD GAS METHEMOGLOBIN 0.7 % (0-2); BLOOD GAS O2 HGB SATURATION 90 % (90-100); BLOOD GAS OXYGEN CONTENT 18.1 Vol % (12.0-20.0); BLOOD GAS PCO2 48 mmHg (38-42); BLOOD GAS PO2 62 mmHG (61-120); BLOOD GAS TOTAL HGB 14.3 G/DL (12.0-16.0); TEMP CORR TO 98.6
[2016-07-11 01:11] LABS: CRITICAL VALUE NO; DRAW SITE LT RADIAL; LITER FLOW 3 L/M; NUMBER OF ARTERIAL PUNCTURES 1; OXYGEN DEVICE NASAL CANNULA; STAT YES; ULNAR PULSE PRESENT
[2016-07-11] MEDS: RESP: ALBUTEROL 2.5 MG/IPRATROPIUM 0.5 MG NEB (PRN) NEB ×2 (03:32→23:17)
[2016-07-11 05:01] LABS: AUTOMATED NEUTROPHIL # 12.6 TH/MM3 (1.8-7.7); BASOPHIL % 0.2 % (0.0-2.0); EOSINOPHIL % 0.1 % (0.0-4.0); HEMATOCRIT 42.7 % (35.0-46.0); HEMO FLAGS DIFF FINAL; LYMPH % 4.1 % (9.0-44.0); LYMPHOCYTE # 0.5 TH/MM3 (1.0-4.8); MEAN CELL VOLUME 89.1 FL (80.0-100.0); MEAN CORPUSCULAR HEMOGLOBIN 28.7 PG (27.0-34.0); MEAN CORPUSCULAR HGB CONC 32.2 % (32.0-36.0); MONO % 1.6 % (0.0-8.0); PLATELET COUNT 246 TH/MM3 (150-450); RED CELL DISTRIBUTION WIDTH 19.9 % (11.6-17.2); WHITE BLOOD COUNT 13.4 TH/MM3 (4.0-11.0)
[2016-07-11 05:33] LABS: BICARBONATE 32.2 MEQ/L (21.0-32.0); POTASSIUM 4.4 MEQ/L (3.5-5.1)
[2016-07-11] MEDS: methylPREDNISolone SOD SUCC 40 MG/1 ML VIAL IV PUSH SCH ×3 (06:16→18:02)
[2016-07-11] MEDS: INSULIN ASPART SUPPLEMENTAL SCALE SQ SCH ×4 (06:50→21:00)
[2016-07-11] MEDS: RESP: ALBUTEROL 2.5 MG/IPRATROPIUM 0.5 MG NEB (SCH) NEB ×4 (08:04→19:28)
[2016-07-11] MEDS: ASPIRIN 81 MG CHEW TAB CHEW SCH (08:17)
[2016-07-11] MEDS: guaiFENesin E.R. 600 MG TAB PO SCH ×2 (08:17→20:41)
[2016-07-11] MEDS: PANTOPRAZOLE SOD 20 MG DELAYED RELEASE TAB PO SCH (08:17)
[2016-07-11] MEDS: DILTIAZEM-CD 240 MG CAP ER PO SCH (08:17)
[2016-07-11] MEDS: DOCUSATE SODIUM 50 MG/SENNA 8.6 MG TAB PO SCH ×2 (08:17→20:41)
[2016-07-11] MEDS: SODIUM CHLORIDE 0.9% FLUSH 10 ML FLUSH IV FLUSH SCH ×2 (08:18→20:41)
[2016-07-11] MEDS: BUDESONIDE-FORMOTEROL 80/4.5 MCG INHALER INH SCH ×2 (08:27→20:53)
[2016-07-11] MEDS: hydrALAZINE HCL 10 MG TAB PO PRN (08:33)
[2016-07-11] MEDS ORDERED: INSULIN GLARGINE 1,000 UNITS/10 ML VIAL SQ SCH (09:00)
[2016-07-11] MEDS: ACETAMINOPHEN 325 MG TAB PO PRN (10:08)
--- NOTE | 2016-07-11 11:33 | HHI.PR ---
Subjective Remarks Appears sob. Still wheezing. No fever or chills. Still with cough. No efeve ro chills. No n/v/d/c. Says she is hungry and wants more food. Objective Vitals Vital Signs Date Time Temp Pulse Resp B/P Pulse Ox O2 Delivery O2 Flow Rate FiO2 07/11/16 10:00 87 07/11/16 08:05 100 Nasal Cannula 1.00 07/11/16 08:00 89 07/11/16 08:00 98.2 91 25 164/78 98 07/11/16 08:00 98 Nasal Cannula 3.00 07/11/16 06:00 94 07/11/16 04:08 97.4 89 23 131/60 97 07/11/16 04:00 97.4 89 23 131/60 97 07/11/16 04:00 94 07/11/16 03:45 99 Nasal Cannula 4.00 07/11/16 01:30 99 40 07/11/16 00:40 100 50 07/11/16 00:30 98.0 89 25 171/88 100 07/11/16 00:06 30 07/10/16 23:50 97.8 88 18 148/78 96 07/10/16 23:45 95 Nasal Cannula 3.00 07/10/16 20:15 98.1 99 18 157/73 07/10/16 19:24 141/60 07/10/16 19:19 98 Nasal Cannula 3.00 07/10/16 18:04 98.1 94 20 164/74 99 07/10/16 16:53 98 22 172/79 97 Nasal Cannula 3 07/10/16 15:34 115 22 164/72 98 Nasal Cannula 3 07/10/16 15:34 98 Nasal Cannula 3 07/10/16 14:34 99 Nasal Cannula 3.00 07/10/16 14:10 110 22 193/93 94 07/10/16 14:05 97.7 122 28 135/105 90 I/O 07/10/16 07/10/16 07/10/16 07/11/16 07/11/16 07/11/16 07:00 15:00 23:00 07:00 15:00 23:00 Intake Total 100 ml Balance 100 ml Intake Oral 100 ml # Voids 1 Result Diagram: 07/11/1633307/11/16333 Imaging Last Impressions Chest X-Ray 07/11/16 0000 Signed Impressions: Service Date/Time: Monday, July 11, 2016 00:35 - CONCLUSION: No acute disease. Wolf Johnson MD Objective Remarks GENERAL: This is a pleasant cachectic, very thin female, well- nourished, well-developed patient, with shortness of breath. SKIN: No rashes, ecchymoses or lesions. Cool and dry. HEAD: Atraumatic. Normocephalic. No temporal or scalp tenderness. EYES: Pupils equal round and reactive. Extraocular motions intact. No scleral icterus. No injection or drainage. ENT: Nose without bleeding, purulent drainage or septal hematoma. Throat without erythema, tonsillar hypertrophy or exudate. Uvula midline. Airway patent. NECK: Trachea midline. No JVD or lymphadenopathy. Supple, nontender, no meningeal signs. CARDIOVASCULAR: Regular rate and rhythm without murmurs, gallops, or rubs. RESPIRATORY: Shortness of breath, cough nonproductive. Decreased breath sounds. Scattered wheezing. No accessory muscle use. GASTROINTESTINAL: Abdomen soft, non-tender, nondistended. No hepato-splenomegaly , or palpable masses. No guarding. MUSCULOSKELETAL: Muscle waisting. Extremities without clubbing, cyanosis, or edema. No joint tenderness, effusion, or edema noted. No calf tenderness. Negative Homans sign bilaterally. NEUROLOGICAL: Awake and alert. Cranial nerves II through XII intact. Motor and sensory grossly within normal limits. Five out of 5 muscle strength in all muscle groups. Normal speech. A/P Assessment and Plan 65-year-old female with past mental history of COPD, A. fib, DM, HTN who presented with shortness of breath COPD with acute exacerbation with failed OP treatment. Acute respiratory failure requiring BiPAP. Currently satting well on NC. Monitor closely. Chest x-ray reviewed and no evidence of infiltrate. Afebrile, mild leukocytosis 14K however patient was on tapered steroids as OP. Currently satting well on 2L NC. Solu-Medrol IV taper as tolerated. Continue scheduled and as needed nebs. O2 as needed. D Dimer negative. Mucinex for cough. Consult her pulm Dr Queta Katz. Diabetes mellitus: Chronic. Continue home Levemir. Additional coverage with SSI with Accu-Cheks especially while on steroids. Atrial fibrillation: Chronic. Continue aspirin and cardizem. Monitor on telemetry. HTR in 110s after nebs x3 in ED. HTN: monitor VS, continue cardizem hold lisinopril as noted mild increase in Cr PHIL: Hold lisinopril. Encourage PO hydration. Monitor kidney function, improving Mild to moderate Protein sergey malnutrition. Bring extra tray. BMI is 19, patient cachectic, bitemporal waisting, muscle waisting. Other chronic medical conditions include GERD, hyperlipidemia, hypertension: Stable at this time and will continue home medications as indicated. DVT prophylaxis: Lovenox Code Status Full code Discussed Condition With Patient, nurse Jody Sung MD July 11, 2016 11:33
[2016-07-11] MEDS: INSULIN DETEMIR 100 UNITS/ML VIAL SQ SCH (11:47)
[2016-07-11] MEDS ORDERED: SODIUM CHLORIDE 0.65% NASAL SPRAY 45 ML BTL EACH NARE PRN (12:45)
[2016-07-11] MEDS: ACETAMINOPHEN/HYDROcodone 325 MG/5 MG TAB PO PRN (13:00)
[2016-07-11] MEDS ORDERED: LISINOPRIL 20 MG TAB PO ONE (13:00)
[2016-07-11] MEDS: ENALAPRILAT 2.5 MG/2 ML VIAL IV PUSH PRN (15:49)
[2016-07-11] MEDS: ENOXAPARIN SODIUM 40 MG/0.4 ML SYRINGE SQ SCH (15:58)
--- NOTE | 2016-07-11 17:10 | HHI.PR ---
Subjective Remarks 65 YOAA female with Severe COPD with Exac SOb with any activity On 2LNC Occ cough no Fever No CP Objective Vital Signs Vital Signs Date Time Temp Pulse Resp B/P Pulse Ox O2 Delivery O2 Flow Rate FiO2 07/11/16 16:00 87 07/11/16 16:00 97.7 87 26 145/70 99 07/11/16 15:25 98 30 07/11/16 15:10 93 21 07/11/16 14:28 14 07/11/16 14:00 94 07/11/16 12:00 94 07/11/16 12:00 98.4 94 22 167/75 93 07/11/16 11:29 97 Nasal Cannula 1.00 07/11/16 11:08 28 07/11/16 10:00 87 07/11/16 08:05 100 Nasal Cannula 1.00 07/11/16 08:00 89 07/11/16 08:00 98.2 91 25 164/78 98 07/11/16 08:00 98 Nasal Cannula 3.00 07/11/16 06:00 94 07/11/16 04:08 97.4 89 23 131/60 97 07/11/16 04:00 97.4 89 23 131/60 97 07/11/16 04:00 94 07/11/16 03:45 99 Nasal Cannula 4.00 07/11/16 01:30 99 40 07/11/16 00:40 100 50 07/11/16 00:30 98.0 89 25 171/88 100 07/11/16 00:06 30 07/10/16 23:50 97.8 88 18 148/78 96 07/10/16 23:45 95 Nasal Cannula 3.00 07/10/16 20:15 98.1 99 18 157/73 07/10/16 19:24 141/60 07/10/16 19:19 98 Nasal Cannula 3.00 07/10/16 18:04 98.1 94 20 164/74 99 I/O 07/10/16 07/10/16 07/10/16 07/11/16 07/11/16 07/11/16 06:59 14:59 22:59 06:59 14:59 22:59 Intake Total 100 ml 440 ml Balance 100 ml 440 ml Intake Oral 100 ml 440 ml # Voids 1 2 # Bowel Movements 2 Result Diagram: 07/11/164 07/11/16333 Objective Remarks GENERAL: MBMN AA female, mild sob SKIN: Warm and dry. HEAD: Normocephalic. EYES: No scleral icterus. No injection or drainage. NECK: Supple, trachea midline. No JVD or lymphadenopathy. CARDIOVASCULAR: Regular rate and rhythm without murmurs, gallops, or rubs. RESPIRATORY: Breath sounds equal bilaterally. No accessory muscle use. Decreased chest excurtion GASTROINTESTINAL: Abdomen soft, non-tender, nondistended. MUSCULOSKELETAL: No cyanosis, or edema. BACK: Nontender without obvious deformity. No CVA tenderness. A/P Assessment and Plan COPD Exac Severe COPD Bronchitis Nicotine use AF DM HTN PLAN: Aerosol nebs IV Solumedrol 40 mg q 6 hrs Cont Abx Supplement 02 to keep sat >90% Smoking cessation SQ Lovenox for DVT prophylaxis Henrique Valero MD July 11, 2016 17:10
[2016-07-11] MEDS: PRAVASTATIN SOD 80 MG TAB PO SCH (20:41)
[2016-07-12] VITALS (9 sets, daily range): BP systolic 153–205; BP diastolic 77–94; PULSE 68–106; RESP 25–45; TEMP 97.4–98.2; O2SAT 93–100
[2016-07-12] MEDS: methylPREDNISolone SOD SUCC 40 MG/1 ML VIAL IV PUSH SCH ×5 (00:09→23:58)
[2016-07-12] MEDS: INSULIN ASPART SUPPLEMENTAL SCALE SQ SCH ×4 (06:21→20:26)
[2016-07-12] MEDS: RESP: ALBUTEROL 2.5 MG/IPRATROPIUM 0.5 MG NEB (SCH) NEB ×4 (08:10→19:25)
[2016-07-12] MEDS: ASPIRIN 81 MG CHEW TAB CHEW SCH (08:53)
[2016-07-12] MEDS: guaiFENesin E.R. 600 MG TAB PO SCH ×2 (08:53→20:25)
[2016-07-12] MEDS: DOCUSATE SODIUM 50 MG/SENNA 8.6 MG TAB PO SCH ×2 (08:53→20:25)
[2016-07-12] MEDS: DILTIAZEM-CD 240 MG CAP ER PO SCH (08:53)
[2016-07-12] MEDS: PANTOPRAZOLE SOD 20 MG DELAYED RELEASE TAB PO SCH (08:53)
[2016-07-12] MEDS: BUDESONIDE-FORMOTEROL 80/4.5 MCG INHALER INH SCH ×2 (08:54→20:25)
[2016-07-12] MEDS: SODIUM CHLORIDE 0.9% FLUSH 10 ML FLUSH IV FLUSH SCH ×2 (08:54→20:25)
[2016-07-12] MEDS: INSULIN DETEMIR 100 UNITS/ML VIAL SQ SCH (09:06)
[2016-07-12] MEDS: ACETAMINOPHEN/HYDROcodone 325 MG/5 MG TAB PO PRN ×2 (09:36→22:41)
[2016-07-12] MEDS: LISINOPRIL 20 MG TAB PO SCH (09:40)
--- NOTE | 2016-07-12 16:29 | HHI.PR ---
Subjective Remarks Patient is sitting up in chair leaning forward says she feels short of breath. He is currently on nasal cannula. She still with wheezing and cough however not able to bring any sputum up. She feels very congested. She was on BiPAP overnight. Eating well. No nausea, vomiting, diarrhea or constipation. Objective Vitals Vital Signs Date Time Temp Pulse Resp B/P Pulse Ox O2 Delivery O2 Flow Rate FiO2 07/12/16 12:00 90 07/12/16 12:00 98.1 94 45 189/94 94 07/12/16 10:36 34 07/12/16 08:13 93 21 07/12/16 08:13 93 07/12/16 08:00 97.8 106 33 182/86 93 07/12/16 08:00 94 07/12/16 07:00 94 Room Air 07/12/16 04:00 97.4 89 25 171/88 100 07/12/16 04:00 83 07/12/16 00:00 83 07/12/16 00:00 97.6 86 36 153/77 100 07/11/16 23:30 99 30 07/11/16 20:00 93 Room Air 07/11/16 20:00 97.7 87 26 145/70 99 07/11/16 20:00 83 07/11/16 19:32 96 Nasal Cannula 2.00 I/O 07/11/16 07/11/16 07/11/16 07/12/16 07/12/16 07/12/16 07:00 15:00 23:00 07:00 15:00 23:00 Intake Total 100 ml 440 ml 450 ml 50 ml Balance 100 ml 440 ml 450 ml 50 ml Intake Oral 100 ml 440 ml 450 ml 50 ml # Voids 1 2 2 4 # Bowel Movements 2 1 Result Diagram: 07/11/16 0334 07/11/16 0334 Imaging Last Impressions Chest X-Ray 07/11/16 0000 Signed Impressions: Service Date/Time: Monday, July 11, 2016 00:35 - CONCLUSION: No acute disease. Wolf Johnson MD Objective Remarks GENERAL: This is a pleasant cachectic, very thin female, well- nourished, well-developed patient, with shortness of breath. EYES: Pupils equal round and reactive. Extraocular motions intact. No scleral icterus. No injection or drainage. ENT: Nose without bleeding, purulent drainage or septal hematoma. Throat without erythema, tonsillar hypertrophy or exudate. Uvula midline. Airway patent. NECK: Trachea midline. No JVD or lymphadenopathy. Supple, nontender, no meningeal signs. CARDIOVASCULAR: Regular rate and rhythm without murmurs, gallops, or rubs. RESPIRATORY: Shortness of breath, cough nonproductive. Decreased breath sounds. Scattered wheezing. No accessory muscle use. GASTROINTESTINAL: Abdomen soft, non-tender, nondistended. A/P Assessment and Plan 65-year-old female with past mental history of COPD, A. fib, DM, HTN who presented with shortness of breath Severe COPD with acute exacerbation with failed OP treatment. Not improving Acute respiratory failure requiring BiPAP. Currently satting well on NC. Monitor closely. Chest x-ray reviewed and no evidence of infiltrate. Afebrile, mild leukocytosis 14K however patient was on tapered steroids as OP. Currently satting well on 2L NC. Solu-Medrol IV taper as tolerated. Continue scheduled and as needed nebs. O2 as needed. D Dimer negative. Mucinex for cough. Started antibiotic per pulm recommendations Patient with not much improvement. Add EZPAP, add mucomist with nebs. Add acapella. Pulm following Check influenza A/B, sputum cx if obtainable, legionella and pneuococcal ag in urine Diabetes mellitus: Chronic. Continue home Levemir. Additional coverage with SSI with Accu-Cheks especially while on steroids. Atrial fibrillation: Chronic. Continue aspirin and cardizem. Monitor on telemetry. HTR in 110s after nebs x3 in ED. HTN: monitor VS, continue cardizem hold lisinopril as noted mild increase in Cr PHIL: Hold lisinopril. Encourage PO hydration. Monitor kidney function, improving Mild to moderate Protein sergey malnutrition. Bring extra tray. BMI is 19, patient cachectic, bitemporal waisting, muscle waisting. Other chronic medical conditions include GERD, hyperlipidemia, hypertension: Stable at this time and will continue home medications as indicated. DVT prophylaxis: Lovenox Code Status Full code Discussed Condition With Patient, nurse Jody Sung MD July 12, 2016 16:29 DVT prophylaxis: Lovenox Code Status Full code Discussed Condition With Patient, nurse Jody Sung MD July 12, 2016 16:29
[2016-07-12] MEDS: ENOXAPARIN SODIUM 40 MG/0.4 ML SYRINGE SQ SCH (16:44)
[2016-07-12] MEDS: cefTRIAXone INJ 1,000 MG in SODIUM CHLORIDE 0.9% INJ 100 ML IV SCH (16:45)
[2016-07-12] MEDS: NICOTINE 14 MG/24 HR PATCH T-DERMAL SCH (17:41)
[2016-07-12] MEDS: RESP: ACETYLCYSTEINE 20% 30 ML NEB NEB SCH (19:25)
[2016-07-12] MEDS: PRAVASTATIN SOD 80 MG TAB PO SCH (20:25)
[2016-07-12] MEDS: hydrALAZINE HCL 10 MG TAB PO PRN (20:25)
[2016-07-12] MEDS: REMOVE OLD PATCH T-DERMAL SCH (20:26)
[2016-07-12] MEDS: ENALAPRILAT 2.5 MG/2 ML VIAL IV PUSH PRN (21:16)
[2016-07-12] MEDS: RESP: ALBUTEROL 2.5 MG/IPRATROPIUM 0.5 MG NEB (PRN) NEB (21:42)
[2016-07-12] MEDS ORDERED: hydrALAZINE HCL 20 MG/ML VIAL IV PUSH ONE (22:15)
[2016-07-12] MEDS ORDERED: methylPREDNISolone SOD SUCC 125 MG/2 ML VIAL IV PUSH ONE (23:45)
[2016-07-13] VITALS (13 sets, daily range): BP systolic 132–187; BP diastolic 66–89; PULSE 86–108; RESP 16–31; TEMP 97.7–98.4; O2SAT 95–100
[2016-07-13] MEDS: RESP: ALBUTEROL 2.5 MG/IPRATROPIUM 0.5 MG NEB (PRN) NEB (02:37)
[2016-07-13] MEDS: methylPREDNISolone SOD SUCC 40 MG/1 ML VIAL IV PUSH SCH ×3 (06:35→21:29)
[2016-07-13] MEDS: INSULIN ASPART SUPPLEMENTAL SCALE SQ SCH ×4 (06:44→21:00)
[2016-07-13] MEDS: RESP: ALBUTEROL 2.5 MG/IPRATROPIUM 0.5 MG NEB (SCH) NEB ×4 (07:23→20:27)
[2016-07-13] MEDS: RESP: ACETYLCYSTEINE 20% 30 ML NEB NEB SCH ×2 (07:23→11:35)
[2016-07-13] MEDS: guaiFENesin E.R. 600 MG TAB PO SCH ×2 (08:47→21:29)
[2016-07-13] MEDS: PANTOPRAZOLE SOD 20 MG DELAYED RELEASE TAB PO SCH (08:47)
[2016-07-13] MEDS: DOCUSATE SODIUM 50 MG/SENNA 8.6 MG TAB PO SCH ×2 (08:47→21:29)
[2016-07-13] MEDS: DILTIAZEM-CD 240 MG CAP ER PO SCH (08:47)
[2016-07-13] MEDS: INSULIN DETEMIR 100 UNITS/ML VIAL SQ SCH ×2 (08:48→21:00)
[2016-07-13] MEDS: ASPIRIN 81 MG CHEW TAB CHEW SCH (08:48)
[2016-07-13] MEDS: SODIUM CHLORIDE 0.9% FLUSH 10 ML FLUSH IV FLUSH SCH ×2 (08:48→21:00)
[2016-07-13] MEDS: REMOVE OLD PATCH T-DERMAL SCH (08:49)
[2016-07-13] MEDS: NICOTINE 14 MG/24 HR PATCH T-DERMAL SCH (08:50)
--- NOTE | 2016-07-13 09:05 | HHI.PR ---
Subjective Remarks On BiPAP overnight. BS noted elevated 2/2 steroid use. Still with sob and wheezing. No n/v/d/c. Still with cough, says is productive, yellow in color no blood in it. Objective Vitals Vital Signs Date Time Temp Pulse Resp B/P Pulse Ox O2 Delivery O2 Flow Rate FiO2 07/13/16 07:44 99 30 07/13/16 07:27 99 Nasal Cannula 1.00 07/13/16 07:00 98 Bi-Pap 30 07/13/16 04:00 98 07/13/16 04:00 98.2 90 21 166/75 100 07/13/16 01:00 153/68 07/13/16 00:48 99 30 07/13/16 00:00 98.4 101 31 187/79 99 07/13/16 00:00 97 07/12/16 20:10 95 30 07/12/16 20:00 96 07/12/16 20:00 98.2 102 26 205/88 94 07/12/16 19:27 95 21 07/12/16 19:00 96 Room Air 07/12/16 16:00 97.6 68 43 195/92 100 07/12/16 16:00 68 07/12/16 12:00 90 07/12/16 12:00 98.1 94 45 189/94 94 07/12/16 10:36 34 I/O 07/12/16 07/12/16 07/12/16 07/13/16 07/13/16 07/13/16 07:00 15:00 23:00 07:00 15:00 23:00 Intake Total 50 ml 1270 ml 325 ml Balance 50 ml 1270 ml 325 ml Intake Oral 50 ml 1270 ml 325 ml IV Total 0 ml # Voids 4 5 1 # Bowel Movements 0 0 Result Diagram: 07/11/16 0334 07/11/16 0334 Imaging Last Impressions Chest X-Ray 07/11/16 0000 Signed Impressions: Service Date/Time: Monday, July 11, 2016 00:35 - CONCLUSION: No acute disease. Wolf Johnson MD Objective Remarks GENERAL: This is a pleasant cachectic, very thin female, well- nourished, well-developed patient, with shortness of breath. EYES: Pupils equal round and reactive. Extraocular motions intact. No scleral icterus. No injection or drainage. ENT: Nose without bleeding, purulent drainage or septal hematoma. Throat without erythema, tonsillar hypertrophy or exudate. Uvula midline. Airway patent. NECK: Trachea midline. No JVD or lymphadenopathy. Supple, nontender, no meningeal signs. CARDIOVASCULAR: Regular rate and rhythm without murmurs, gallops, or rubs. RESPIRATORY: Shortness of breath, cough nonproductive. Decreased breath sounds. Scattered wheezing. No accessory muscle use. GASTROINTESTINAL: Abdomen soft, non-tender, nondistended. A/P Assessment and Plan 65-year-old female with past mental history of COPD, A. fib, DM, HTN who presented with shortness of breath Severe COPD with acute exacerbation with failed OP treatment. Not improving Acute respiratory failure requiring BiPAP. Currently satting well on NC, but needs BIPAP at [employer] class closely. Chest x-ray reviewed and no evidence of infiltrate. Afebrile, mild leukocytosis 14K however patient was on tapered steroids as OP. Currently satting well on 2L NC. Solu-Medrol IV taper as tolerated. Continue scheduled and as needed nebs. O2 as needed. D Dimer negative. Mucinex for cough. Started antibiotic per pulm recommendations Patient with not much improvement. Added EZPAP, mucomist with nebs. Added acapella. Pulm following Influenza A/B, sputum cx if obtainable, legionella and pneumococcal ag in urine pending Diabetes mellitus, uncontrolled. Increased Levemir to 10 U BID. Additional coverage with SSI with Accu-Cheks especially while on steroids. Atrial fibrillation: Chronic. Continue aspirin and cardizem. Monitor on telemetry. HR in 110s after nebs x3 in ED. Monitor. HTN, uncontrolled, monitor VS, continue cardizem, lisinopril, add as need hydralazine PHIL: Hold lisinopril. Encourage PO hydration. Monitor kidney function, improving Mild to moderate Protein sergey malnutrition. Bring extra tray. BMI is 19, patient cachectic, bitemporal waisting, muscle waisting. Other chronic medical conditions include GERD, hyperlipidemia: Stable at this time and will continue home medications as indicated. DVT prophylaxis: Lovenox Code Status Full code Discussed Condition With Patient, nurse. Jody Sung MD July 13, 2016 09:05
[2016-07-13] MEDS ORDERED: MORPHINE SULFATE 4 MG/ML INJ IV PUSH PRN (09:15)
[2016-07-13] MEDS ORDERED: GLUCAGON 1 MG/ML VIAL OTHER PRN (09:15)
[2016-07-13] MEDS ORDERED: DEXTROSE 50% IN WATER 50 ML VIAL(D50) IV PRN (09:15)
[2016-07-13] MEDS: LISINOPRIL 20 MG TAB PO SCH (09:17)
[2016-07-13] MEDS: ACETAMINOPHEN/HYDROcodone 325 MG/5 MG TAB PO PRN (09:17)
[2016-07-13] MEDS: hydrALAZINE HCL 20 MG/ML VIAL IV PUSH PRN ×2 (10:11→18:26)
[2016-07-13] MEDS ORDERED: INSULIN ASPART SUPPLEMENTAL SCALE SQ SCH (11:00)
[2016-07-13] MEDS: ALPRAZolam 0.25 MG TAB PO PRN (12:27)
[2016-07-13] MEDS: hydrALAZINE HCL 10 MG TAB PO PRN (14:10)
[2016-07-13] MEDS: cefTRIAXone INJ 1,000 MG in SODIUM CHLORIDE 0.9% INJ 100 ML IV SCH (14:11)
[2016-07-13] MEDS: ENOXAPARIN SODIUM 40 MG/0.4 ML SYRINGE SQ SCH (16:18)
[2016-07-13] MEDS: PRAVASTATIN SOD 80 MG TAB PO SCH (21:29)
[2016-07-14] VITALS (10 sets, daily range): BP systolic 140–174; BP diastolic 58–74; PULSE 78–113; RESP 19–32; TEMP 97.4–98.4; O2SAT 96–100
[2016-07-14] MEDS: RESP: ALBUTEROL 2.5 MG/IPRATROPIUM 0.5 MG NEB (PRN) NEB (03:04)
[2016-07-14] MEDS: ACETAMINOPHEN/HYDROcodone 325 MG/5 MG TAB PO PRN (03:32)
[2016-07-14 04:55] LABS: AUTOMATED NEUTROPHIL # 19.2 TH/MM3 (1.8-7.7); BASOPHIL % 0.1 % (0.0-2.0); HEMATOCRIT 45.9 % (35.0-46.0); HEMO FLAGS DIFF FINAL; LYMPH % 1.1 % (9.0-44.0); LYMPHOCYTE # 0.2 TH/MM3 (1.0-4.8); MEAN CORPUSCULAR HEMOGLOBIN 28.1 PG (27.0-34.0); MEAN CORPUSCULAR HGB CONC 31.2 % (32.0-36.0); MONO % 5.8 % (0.0-8.0); PLATELET COUNT 235 TH/MM3 (150-450); RED CELL DISTRIBUTION WIDTH 20.1 % (11.6-17.2); WHITE BLOOD COUNT 20.6 TH/MM3 (4.0-11.0)
[2016-07-14 05:27] LABS: BICARBONATE 30.4 MEQ/L (21.0-32.0); POTASSIUM 4.2 MEQ/L (3.5-5.1)
[2016-07-14] MEDS: methylPREDNISolone SOD SUCC 40 MG/1 ML VIAL IV PUSH SCH ×3 (05:27→22:34)
[2016-07-14] MEDS: INSULIN ASPART SUPPLEMENTAL SCALE SQ SCH ×4 (06:57→20:39)
[2016-07-14] MEDS: RESP: ALBUTEROL 2.5 MG/IPRATROPIUM 0.5 MG NEB (SCH) NEB ×4 (07:49→19:29)
[2016-07-14] MEDS: RESP: ACETYLCYSTEINE 20% 30 ML NEB NEB SCH ×2 (07:50→19:29)
[2016-07-14] MEDS: REMOVE OLD PATCH T-DERMAL SCH (09:00)
--- NOTE | 2016-07-14 09:30 | HHI.PR ---
Subjective Remarks On CPAP , appears sob. Still with wheezing. No much cough but feels very congested. No fever or chills. Says she is very anxious part of it is when she is getting too SOB. No headache. No chest pain. No n/v/d/c. Objective Vitals Vital Signs Date Time Temp Pulse Resp B/P Pulse Ox O2 Delivery O2 Flow Rate FiO2 07/14/16 07:54 99 Nasal Cannula 3.50 07/14/16 04:00 97.8 78 20 160/69 100 07/14/16 04:00 93 07/14/16 01:30 98 30 07/14/16 00:00 97.6 82 19 152/64 97 07/14/16 00:00 82 07/13/16 22:43 95 30 07/13/16 22:00 87 07/13/16 20:28 97 Nasal Cannula 3.50 07/13/16 20:00 92 07/13/16 20:00 97.7 92 18 132/89 99 07/13/16 19:00 100 Nasal Cannula 3.00 07/13/16 16:00 86 07/13/16 16:00 97.8 86 18 145/67 100 07/13/16 12:00 96 07/13/16 12:00 97.8 96 16 160/66 100 07/13/16 11:12 18 07/13/16 10:17 20 I/O 07/13/16 07/13/16 07/13/16 07/14/16 07/14/16 07/14/16 07:00 15:00 23:00 07:00 15:00 23:00 Intake Total 325 ml 470 ml 675 ml 350 ml Output Total 300 ml 250 ml Balance 325 ml 170 ml 425 ml 350 ml Intake Oral 325 ml 470 ml 675 ml 350 ml Output Urine Total 300 ml 250 ml # Voids 1 2 1 1 # Bowel Movements 0 0 0 0 Result Diagram: 07/14/16 0345 07/14/16 0345 Other Results Microbiology Date/Time Procedure Status Source Growth 07/12/16 21:45 Cancelled Sputum Expectorated Sputum Imaging Last Impressions Chest X-Ray 07/11/16 0000 Signed Impressions: Service Date/Time: Monday, July 11, 2016 00:35 - CONCLUSION: No acute disease. Wolf Johnson MD Objective Remarks GENERAL: This is a pleasant cachectic, very thin female, well- nourished, well-developed patient, with shortness of breath. EYES: Pupils equal round and reactive. Extraocular motions intact. No scleral icterus. No injection or drainage. ENT: Nose without bleeding, purulent drainage or septal hematoma. Throat without erythema, tonsillar hypertrophy or exudate. Uvula midline. Airway patent. NECK: Trachea midline. No JVD or lymphadenopathy. Supple, nontender, no meningeal signs. CARDIOVASCULAR: Regular rate and rhythm without murmurs, gallops, or rubs. RESPIRATORY: Shortness of breath, cough nonproductive. Decreased breath sounds. Scattered wheezing. No accessory muscle use. GASTROINTESTINAL: Abdomen soft, non-tender, nondistended. A/P Assessment and Plan 65-year-old female with past mental history of COPD, A. fib, DM, HTN who presented with shortness of breath Severe COPD with acute exacerbation with failed OP treatment. Not improving Acute respiratory failure requiring BiPAP. 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 Chest x-ray reviewed and no evidence of infiltrate. Afebrile, mild leukocytosis 14K however patient was on tapered steroids as OP. Currently satting well on 2L NC. Solu-Medrol IV taper as tolerated. Continue scheduled and as needed nebs. O2 as needed. D Dimer negative. Mucinex for cough. Started antibiotic per pulm recommendations Patient with not much improvement. Added EZPAP, mucomist with nebs. Added acapella. Pulm following Influenza A/B, sputum cx if obtainable, legionella and pneumococcal ag in urine pending Diabetes mellitus, uncontrolled. Increased Levemir to 10 U BID. Additional coverage with SSI with Accu-Cheks especially while on steroids. Atrial fibrillation: Chronic. Continue aspirin and cardizem. Monitor on telemetry. HR in 110s after nebs x3 in ED. Monitor. HTN, uncontrolled, monitor VS, continue cardizem, lisinopril, add as need hydralazine PHIL: Hold lisinopril. Encourage PO hydration. Monitor kidney function, improving Mild to moderate Protein sergey malnutrition. Bring extra tray. BMI is 19, patient cachectic, bitemporal waisting, muscle waisting. Other chronic medical conditions include GERD, hyperlipidemia: Stable at this time and will continue home medications as indicated. DVT prophylaxis: Lovenox Code Status Full code Discussed Condition With Patient, nurse. Jody Sung MD Jul 14, 2016 09:30
[2016-07-14] MEDS: SODIUM CHLORIDE 0.9% FLUSH 10 ML FLUSH IV FLUSH SCH ×2 (09:32→21:36)
[2016-07-14] MEDS: ASPIRIN 81 MG CHEW TAB CHEW SCH (09:32)
[2016-07-14] MEDS: LISINOPRIL 20 MG TAB PO SCH (09:32)
[2016-07-14] MEDS: PANTOPRAZOLE SOD 20 MG DELAYED RELEASE TAB PO SCH (09:32)
[2016-07-14] MEDS: guaiFENesin E.R. 600 MG TAB PO SCH ×2 (09:33→20:02)
[2016-07-14] MEDS: DOCUSATE SODIUM 50 MG/SENNA 8.6 MG TAB PO SCH ×2 (09:33→20:04)
[2016-07-14] MEDS: DILTIAZEM-CD 240 MG CAP ER PO SCH (09:33)
[2016-07-14] MEDS: NICOTINE 14 MG/24 HR PATCH T-DERMAL SCH (09:33)
[2016-07-14] MEDS ORDERED: guaiFENesin/CODEINE SYRUP 200 MG/20 MG/10 ML CUP PO PRN (09:45)
[2016-07-14] MEDS: hydrALAZINE HCL 20 MG/ML VIAL IV PUSH PRN (10:39)
[2016-07-14] MEDS: ACETAMINOPHEN 325 MG TAB PO PRN (10:39)
[2016-07-14] MEDS: INSULIN DETEMIR 100 UNITS/ML VIAL SQ SCH ×2 (12:09→20:02)
[2016-07-14] MEDS: ENALAPRILAT 2.5 MG/2 ML VIAL IV PUSH PRN ×2 (13:53→22:34)
[2016-07-14] MEDS: cefTRIAXone INJ 1,000 MG in SODIUM CHLORIDE 0.9% INJ 100 ML IV SCH (13:54)
[2016-07-14] MEDS: ALPRAZolam 0.25 MG TAB PO PRN ×2 (15:39→23:10)
[2016-07-14] MEDS: ENOXAPARIN SODIUM 40 MG/0.4 ML SYRINGE SQ SCH (17:45)
[2016-07-14] MEDS: hydrALAZINE HCL 10 MG TAB PO PRN (18:37)
[2016-07-14] MEDS: PRAVASTATIN SOD 80 MG TAB PO SCH (20:02)
[2016-07-15] VITALS (10 sets, daily range): BP systolic 142–183; BP diastolic 64–104; PULSE 67–102; RESP 21–36; TEMP 97.6–97.9; O2SAT 95–100
[2016-07-15] MEDS: hydrALAZINE HCL 10 MG TAB PO PRN ×3 (01:44→22:09)
[2016-07-15 04:14] LABS: AUTOMATED NEUTROPHIL # 16.5 TH/MM3 (1.8-7.7); BASOPHIL # 0.2 TH/MM3 (0-0.2); BASOPHIL % 1.2 % (0.0-2.0); HEMATOCRIT 43.8 % (35.0-46.0); LYMPHOCYTE # 0.5 TH/MM3 (1.0-4.8); MEAN CELL VOLUME 89.7 FL (80.0-100.0); MEAN CORPUSCULAR HEMOGLOBIN 27.9 PG (27.0-34.0); MEAN CORPUSCULAR HGB CONC 31.1 % (32.0-36.0); MONO % 4.6 % (0.0-8.0); NEUT % 91.2 % (16.0-70.0); PLATELET COUNT 189 TH/MM3 (150-450); RED BLOOD COUNT 4.88 MIL/MM3 (4.00-5.30); RED CELL DISTRIBUTION WIDTH 20.4 % (11.6-17.2); WHITE BLOOD COUNT 18.1 TH/MM3 (4.0-11.0)
[2016-07-15 04:17] LABS: HEMO FLAGS AUTO DIFF
[2016-07-15 04:32] LABS: BICARBONATE 27.4 MEQ/L (21.0-32.0); POTASSIUM 4.3 MEQ/L (3.5-5.1)
[2016-07-15] MEDS: methylPREDNISolone SOD SUCC 40 MG/1 ML VIAL IV PUSH SCH ×3 (05:35→22:09)
[2016-07-15 05:59] LABS: SCAN/DIFF AUTO DIFF CONFIRMED
[2016-07-15] MEDS: RESP: ACETYLCYSTEINE 20% 30 ML NEB NEB SCH ×2 (06:25→20:00)
[2016-07-15] MEDS: RESP: ALBUTEROL 2.5 MG/IPRATROPIUM 0.5 MG NEB (SCH) NEB ×4 (06:25→21:08)
[2016-07-15] MEDS: INSULIN ASPART SUPPLEMENTAL SCALE SQ SCH ×4 (07:00→20:29)
[2016-07-15] MEDS: REMOVE OLD PATCH T-DERMAL SCH (09:00)
[2016-07-15] MEDS: DOCUSATE SODIUM 50 MG/SENNA 8.6 MG TAB PO SCH ×2 (09:00→21:00)
[2016-07-15] MEDS: RESP: ALBUTEROL 2.5 MG/IPRATROPIUM 0.5 MG NEB (PRN) NEB (10:06)
[2016-07-15] MEDS: SODIUM CHLORIDE 0.9% FLUSH 10 ML FLUSH IV FLUSH SCH ×2 (10:10→20:02)
[2016-07-15] MEDS: ASPIRIN 81 MG CHEW TAB CHEW SCH (10:10)
[2016-07-15] MEDS: PANTOPRAZOLE SOD 20 MG DELAYED RELEASE TAB PO SCH (10:10)
[2016-07-15] MEDS: LISINOPRIL 20 MG TAB PO SCH (10:10)
[2016-07-15] MEDS: DILTIAZEM-CD 240 MG CAP ER PO SCH (10:10)
[2016-07-15] MEDS: guaiFENesin E.R. 600 MG TAB PO SCH ×2 (10:11→20:02)
[2016-07-15] MEDS: NICOTINE 14 MG/24 HR PATCH T-DERMAL SCH (10:11)
[2016-07-15] MEDS: INSULIN DETEMIR 100 UNITS/ML VIAL SQ SCH ×2 (10:13→20:29)
[2016-07-15] MEDS: ALPRAZolam 0.25 MG TAB PO PRN ×2 (10:20→20:02)
--- NOTE | 2016-07-15 13:58 | HHI.PR ---
Subjective Remarks Patient at the margin of the bed. Says she did use on /off bipap overnight. says Dr Katz recommends use of bipap as need. Patient says she is feeling the same not much improvement. No much cough, feels congested. with sob. No n/v/d/c. Objective Vitals Vital Signs Date Time Temp Pulse Resp B/P Pulse Ox O2 Delivery O2 Flow Rate FiO2 07/15/16 12:40 100 30 07/15/16 12:00 95 07/15/16 08:00 97.8 67 24 162/72 100 07/15/16 08:00 67 07/15/16 07:46 95 21 07/15/16 07:00 99 Nasal Cannula 1.00 07/15/16 04:00 75 07/15/16 04:00 97.6 75 24 142/64 100 07/15/16 01:00 100 Nasal Cannula 2.00 07/15/16 00:05 98 30 07/15/16 00:00 100 Bi-Pap 30 07/15/16 00:00 97.6 91 23 165/104 99 07/15/16 00:00 89 07/14/16 20:00 102 07/14/16 20:00 97.9 102 30 174/74 99 07/14/16 19:31 99 Nasal Cannula 2.00 07/14/16 19:00 98 Nasal Cannula 3.00 07/14/16 16:00 97.4 96 24 140/60 96 07/14/16 16:00 101 07/14/16 15:17 98 30 I/O 07/14/16 07/14/16 07/14/16 07/15/16 07/15/16 07/15/16 07:00 15:00 23:00 07:00 15:00 23:00 Intake Total 350 ml 120 ml 240 ml 250 ml Output Total 300 ml 250 ml 125 ml Balance 350 ml -180 ml -10 ml 125 ml Intake Oral 350 ml 120 ml 240 ml 240 ml IV Total 0 ml 10 ml Output Urine Total 300 ml 250 ml 125 ml # Voids 1 1 # Bowel Movements 0 0 0 Result Diagram: 07/15/16 0348 07/15/16 0348 Imaging Last Impressions Chest X-Ray 07/11/16 0000 Signed Impressions: Service Date/Time: Sukumar, July 11, 2016 00:35 - CONCLUSION: No acute disease. Wolf Johnson MD Objective Remarks GENERAL: This is a pleasant cachectic, very thin female, well- nourished, well-developed patient, with shortness of breath. EYES: Pupils equal round and reactive. Extraocular motions intact. No scleral icterus. No injection or drainage. ENT: Nose without bleeding, purulent drainage or septal hematoma. Throat without erythema, tonsillar hypertrophy or exudate. Uvula midline. Airway patent. NECK: Trachea midline. No JVD or lymphadenopathy. Supple, nontender, no meningeal signs. CARDIOVASCULAR: Regular rate and rhythm without murmurs, gallops, or rubs. RESPIRATORY: Shortness of breath, cough nonproductive. Decreased breath sounds. Scattered wheezing. No accessory muscle use. GASTROINTESTINAL: Abdomen soft, non-tender, nondistended. A/P Assessment and Plan 65-year-old female with past mental history of COPD, A. fib, DM, HTN who presented with shortness of breath Severe COPD with acute exacerbation with failed OP treatment. Not improving. Acute respiratory failure requiring BiPAP. 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 Chest x-ray reviewed and no evidence of infiltrate. Afebrile, mild leukocytosis 14K however patient was on tapered steroids as OP. Currently satting well on 2L NC. Solu-Medrol IV taper as tolerated. Continue scheduled and as needed nebs. O2 as needed. D Dimer negative. Mucinex for cough. Started antibiotic per pulm recommendations Patient with not much improvement. Added EZPAP, mucomist with nebs. Acapella. Pulm following Influenza A/B, sputum cx if obtainable, legionella and pneumococcal ag in urine pending Diabetes mellitus, uncontrolled. Increased Levemir to 10 U BID. Additional coverage with SSI with Accu-Cheks especially while on steroids. Atrial fibrillation: Chronic. Continue aspirin and cardizem. Monitor on telemetry. HR in 110s after nebs x3 in ED. Monitor. HTN, uncontrolled, monitor VS, continue cardizem, lisinopril, add as need hydralazine PHIL: Hold lisinopril. Encourage PO hydration. Monitor kidney function, improving Mild to moderate Protein sergey malnutrition. Bring extra tray. BMI is 19, patient cachectic, bitemporal waisting, muscle waisting. Other chronic medical conditions include GERD, hyperlipidemia: Stable at this time and will continue home medications as indicated. DVT prophylaxis: Lovenox Code Status Full code Discussed Condition With Patient, nurse. Jody Sung MD Jul 15, 2016 13:58
[2016-07-15] MEDS: cefTRIAXone INJ 1,000 MG in SODIUM CHLORIDE 0.9% INJ 100 ML IV SCH (14:42)
[2016-07-15] MEDS: ACETAMINOPHEN 325 MG TAB PO PRN (14:42)
[2016-07-15] MEDS: ACETAMINOPHEN/HYDROcodone 325 MG/5 MG TAB PO PRN (16:42)
[2016-07-15] MEDS: ENOXAPARIN SODIUM 40 MG/0.4 ML SYRINGE SQ SCH (16:43)
[2016-07-15] MEDS: PRAVASTATIN SOD 80 MG TAB PO SCH (20:02)
[2016-07-16] VITALS (9 sets, daily range): BP systolic 140–176; BP diastolic 62–79; PULSE 66–90; RESP 18–27; TEMP 96.2–98.2; O2SAT 96–100
[2016-07-16 04:26] LABS: BICARBONATE 27.9 MEQ/L (21.0-32.0); POTASSIUM 4.7 MEQ/L (3.5-5.1)
[2016-07-16 04:28] LABS: AUTOMATED NEUTROPHIL # 14.2 TH/MM3 (1.8-7.7); BASOPHIL % 0.2 % (0.0-2.0); HEMATOCRIT 40.9 % (35.0-46.0); HEMO FLAGS DIFF FINAL; LYMPH % 1.9 % (9.0-44.0); LYMPHOCYTE # 0.3 TH/MM3 (1.0-4.8); MEAN CELL VOLUME 89.8 FL (80.0-100.0); MEAN CORPUSCULAR HGB CONC 31.2 % (32.0-36.0); MONO % 2.9 % (0.0-8.0); PLATELET COUNT 164 TH/MM3 (150-450); RED BLOOD COUNT 4.55 MIL/MM3 (4.00-5.30); WHITE BLOOD COUNT 14.9 TH/MM3 (4.0-11.0)
[2016-07-16] MEDS: methylPREDNISolone SOD SUCC 40 MG/1 ML VIAL IV PUSH SCH ×4 (06:11→23:58)
[2016-07-16] MEDS: INSULIN ASPART SUPPLEMENTAL SCALE SQ SCH ×4 (06:28→22:20)
[2016-07-16] MEDS: RESP: ALBUTEROL 2.5 MG/IPRATROPIUM 0.5 MG NEB (SCH) NEB ×4 (07:52→19:52)
[2016-07-16] MEDS: RESP: ACETYLCYSTEINE 20% 30 ML NEB NEB SCH (07:53)
[2016-07-16] MEDS: BUDESONIDE-FORMOTEROL 80/4.5 MCG INHALER INH SCH ×2 (09:00→21:00)
[2016-07-16] MEDS: REMOVE OLD PATCH T-DERMAL SCH (09:00)
[2016-07-16] MEDS: SODIUM CHLORIDE 0.9% FLUSH 10 ML FLUSH IV FLUSH SCH ×2 (09:00→22:24)
[2016-07-16] MEDS: INSULIN DETEMIR 100 UNITS/ML VIAL SQ SCH ×2 (09:00→22:22)
[2016-07-16] MEDS: ASPIRIN 81 MG CHEW TAB CHEW SCH (09:37)
[2016-07-16] MEDS: DILTIAZEM-CD 240 MG CAP ER PO SCH (09:37)
[2016-07-16] MEDS: guaiFENesin E.R. 600 MG TAB PO SCH ×2 (09:37→22:23)
[2016-07-16] MEDS: PANTOPRAZOLE SOD 20 MG DELAYED RELEASE TAB PO SCH (09:37)
[2016-07-16] MEDS: LISINOPRIL 20 MG TAB PO SCH (09:38)
[2016-07-16] MEDS: ALPRAZolam 0.25 MG TAB PO PRN ×2 (09:38→23:59)
[2016-07-16] MEDS: DOCUSATE SODIUM 50 MG/SENNA 8.6 MG TAB PO SCH ×2 (09:38→22:23)
[2016-07-16] MEDS: NICOTINE 14 MG/24 HR PATCH T-DERMAL SCH (09:39)
[2016-07-16] MEDS: ACETAMINOPHEN 325 MG TAB PO PRN (10:49)
[2016-07-16] MEDS: cefTRIAXone INJ 1,000 MG in SODIUM CHLORIDE 0.9% INJ 100 ML IV SCH (15:14)
[2016-07-16] MEDS: RESP: ACETYLCYSTEINE 10% 30 ML NEB NEB SCH (16:00)
--- NOTE | 2016-07-16 16:12 | RADRPT ---
EXAM DATE/TIME: 07/16/2016 15:24 [facility] COMPARISON: CHEST SINGLE AP, July 11, 2016, 0:35. INDICATIONS : Chest pain MEDICAL HISTORY : Chronic obstructive pulmonary disease. SURGICAL HISTORY : None. ENCOUNTER: Subsequent ACUITY: 4 - 6 days PAIN SCORE: Non-responsive. LOCATION: Bilateral chest FINDINGS: Single AP view of the chest. The lungs are clear. Cardiomediastinal silhouette within normal limits. No evidence of pleural effusion or pneumothorax. CONCLUSION: No acute cardiopulmonary disease identified. Adan Thomas MD on July 16, 2016 at 16:10 Board Certified Radiologist. This report was verified electronically.
[2016-07-16] MEDS: ENOXAPARIN SODIUM 40 MG/0.4 ML SYRINGE SQ SCH (17:16)
[2016-07-16] MEDS: PRAVASTATIN SOD 80 MG TAB PO SCH (22:23)
[2016-07-16] MEDS: ACETAMINOPHEN/HYDROcodone 325 MG/5 MG TAB PO PRN (22:34)
[2016-07-17] VITALS (11 sets, daily range): BP systolic 136–163; BP diastolic 63–68; PULSE 71–99; RESP 17–20; TEMP 96.3–97.6; O2SAT 94–99
[2016-07-17] MEDS: methylPREDNISolone SOD SUCC 40 MG/1 ML VIAL IV PUSH SCH ×4 (05:53→21:58)
[2016-07-17] MEDS: INSULIN ASPART SUPPLEMENTAL SCALE SQ SCH ×4 (06:50→21:00)
[2016-07-17] MEDS: BUDESONIDE-FORMOTEROL 80/4.5 MCG INHALER INH SCH ×2 (08:02→21:00)
[2016-07-17] MEDS: LISINOPRIL 20 MG TAB PO SCH (08:02)
[2016-07-17] MEDS: DILTIAZEM-CD 240 MG CAP ER PO SCH (08:02)
[2016-07-17] MEDS: PANTOPRAZOLE SOD 20 MG DELAYED RELEASE TAB PO SCH (08:03)
[2016-07-17] MEDS: ASPIRIN 81 MG CHEW TAB CHEW SCH (08:03)
[2016-07-17] MEDS: guaiFENesin E.R. 600 MG TAB PO SCH ×2 (08:03→21:58)
[2016-07-17] MEDS: DOCUSATE SODIUM 50 MG/SENNA 8.6 MG TAB PO SCH ×2 (08:03→21:58)
[2016-07-17] MEDS: SODIUM CHLORIDE 0.9% FLUSH 10 ML FLUSH IV FLUSH SCH ×2 (08:04→21:00)
[2016-07-17] MEDS: REMOVE OLD PATCH T-DERMAL SCH (08:04)
[2016-07-17] MEDS: NICOTINE 14 MG/24 HR PATCH T-DERMAL SCH (08:04)
[2016-07-17] MEDS: INSULIN DETEMIR 100 UNITS/ML VIAL SQ SCH ×2 (08:09→21:00)
[2016-07-17] MEDS: RESP: ALBUTEROL 2.5 MG/IPRATROPIUM 0.5 MG NEB (SCH) NEB ×3 (08:58→15:42)
[2016-07-17] MEDS: RESP: ACETYLCYSTEINE 10% 30 ML NEB NEB SCH ×3 (08:58→15:45)
--- NOTE | 2016-07-17 09:00 | HHI.PR ---
Subjective Remarks In bed, she is with wheezing. Receiving nebs. With some cough. Did use the biapap overnight. Says she is slowly improving. No fever or chills. No n/v/d/c. Objective Vitals Vital Signs Date Time Temp Pulse Resp B/P Pulse Ox O2 Delivery O2 Flow Rate FiO2 07/17/16 08:12 96.5 71 18 142/68 98 07/17/16 08:12 99 2.00 07/17/16 05:52 Nasal Cannula 2.00 07/17/16 04:03 Bi-Pap 07/17/16 04:00 97.0 74 20 152/67 98 07/17/16 00:55 99 30 07/17/16 00:13 Nasal Cannula 2.00 07/17/16 00:00 96.3 74 18 149/65 97 07/16/16 22:06 98 Nasal Cannula 2.00 07/16/16 20:00 96.2 81 18 153/68 96 07/16/16 19:52 99 Nasal Cannula 2.00 07/16/16 16:00 70 07/16/16 16:00 98.2 70 24 153/70 99 07/16/16 12:00 86 07/16/16 12:00 98.1 86 24 144/65 99 I/O 07/16/16 07/16/16 07/16/16 07/17/16 07/17/16 07/17/16 07:00 15:00 23:00 07:00 15:00 23:00 Intake Total 240 ml 240 ml 480 ml Output Total 200 ml 575 ml Balance 40 ml -335 ml 480 ml Intake Oral 240 ml 240 ml 480 ml IV Total 0 ml 0 ml Output Urine Total 200 ml 575 ml # Voids 2 # Bowel Movements 0 0 Result Diagram: 07/16/16 0331 07/16/16 0331 Imaging Last Impressions Chest X-Ray 07/16/16 0000 Signed Impressions: Service Date/Time: Saturday, July 16, 2016 15:24 - CONCLUSION: No acute cardiopulmonary disease identified. Adan Thomas MD Objective Remarks GENERAL: This is a pleasant cachectic, very thin female, well- nourished, well-developed patient, with shortness of breath. EYES: Pupils equal round and reactive. Extraocular motions intact. No scleral icterus. No injection or drainage. ENT: Nose without bleeding, purulent drainage or septal hematoma. Throat without erythema, tonsillar hypertrophy or exudate. Uvula midline. Airway patent. NECK: Trachea midline. No JVD or lymphadenopathy. Supple, nontender, no meningeal signs. CARDIOVASCULAR: Regular rate and rhythm without murmurs, gallops, or rubs. RESPIRATORY: Shortness of breath, cough nonproductive. Decreased breath sounds. Scattered wheezing. No accessory muscle use. GASTROINTESTINAL: Abdomen soft, non-tender, nondistended. A/P Assessment and Plan 65-year-old female with past mental history of COPD, A. fib, DM, HTN who presented with shortness of breath Severe COPD with acute exacerbation with failed OP treatment. Not improving. Acute respiratory failure requiring BiPAP. 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 Chest x-ray reviewed and no evidence of infiltrate. Afebrile, mild leukocytosis 14K however patient was on tapered steroids as OP. Currently satting well on 2L NC. Solu-Medrol IV taper as tolerated. Continue scheduled and as needed nebs. O2 as needed. D Dimer negative. Mucinex for cough. Started antibiotic per pulm recommendations Patient with not much improvement. Added EZPAP, mucomist with nebs. Acapella. Pulm following Influenza A/B, sputum cx if obtainable, legionella and pneumococcal ag in urine pending Diabetes mellitus, uncontrolled. Increased Levemir to 10 U BID. Additional coverage with SSI with Accu-Cheks especially while on steroids. Atrial fibrillation: Chronic. Continue aspirin and cardizem. Monitor on telemetry. HR in 110s after nebs x3 in ED. Monitor. HTN, uncontrolled, monitor VS, continue cardizem, lisinopril, add as need hydralazine PHIL: Hold lisinopril. Encourage PO hydration. Monitor kidney function, improving Mild to moderate Protein sergey malnutrition. Bring extra tray. BMI is 19, patient cachectic, bitemporal waisting, muscle waisting. Other chronic medical conditions include GERD, hyperlipidemia: Stable at this time and will continue home medications as indicated. DVT prophylaxis: Lovenox Code Status Full code Discussed Condition With Patient, nurse. Jody Sung MD Jul 17, 2016 09:00
[2016-07-17] MEDS: cefTRIAXone INJ 1,000 MG in SODIUM CHLORIDE 0.9% INJ 100 ML IV SCH (14:08)
[2016-07-17] MEDS: ENOXAPARIN SODIUM 40 MG/0.4 ML SYRINGE SQ SCH (16:29)
[2016-07-17] MEDS: RESP: ALBUTEROL 2.5 MG/IPRATROPIUM 0.5 MG NEB (PRN) NEB (20:51)
[2016-07-17] MEDS: PRAVASTATIN SOD 80 MG TAB PO SCH (21:58)
[2016-07-18] VITALS (12 sets, daily range): BP systolic 115–186; BP diastolic 61–87; PULSE 81–94; RESP 16–18; TEMP 96.7–98.2; O2SAT 16–99
[2016-07-18] MEDS: RESP: ACETYLCYSTEINE 10% 30 ML NEB NEB SCH ×2 (00:24→08:44)
[2016-07-18] MEDS: RESP: ALBUTEROL 2.5 MG/IPRATROPIUM 0.5 MG NEB (PRN) NEB ×2 (00:25→08:44)
[2016-07-18] MEDS: methylPREDNISolone SOD SUCC 40 MG/1 ML VIAL IV PUSH SCH (06:15)
[2016-07-18] MEDS: INSULIN ASPART SUPPLEMENTAL SCALE SQ SCH ×4 (06:17→21:20)
[2016-07-18] MEDS: ASPIRIN 81 MG CHEW TAB CHEW SCH (08:17)
[2016-07-18] MEDS: guaiFENesin E.R. 600 MG TAB PO SCH ×2 (08:17→21:13)
[2016-07-18] MEDS: REMOVE OLD PATCH T-DERMAL SCH (08:18)
[2016-07-18] MEDS: PANTOPRAZOLE SOD 20 MG DELAYED RELEASE TAB PO SCH (08:18)
[2016-07-18] MEDS: NICOTINE 14 MG/24 HR PATCH T-DERMAL SCH (08:18)
[2016-07-18] MEDS: DILTIAZEM-CD 240 MG CAP ER PO SCH (08:18)
[2016-07-18] MEDS: LISINOPRIL 20 MG TAB PO SCH (08:18)
[2016-07-18] MEDS: DOCUSATE SODIUM 50 MG/SENNA 8.6 MG TAB PO SCH ×2 (08:18→21:13)
[2016-07-18] MEDS: ENALAPRILAT 2.5 MG/2 ML VIAL IV PUSH PRN (08:19)
[2016-07-18] MEDS: BUDESONIDE-FORMOTEROL 80/4.5 MCG INHALER INH SCH (08:19)
[2016-07-18] MEDS: SODIUM CHLORIDE 0.9% FLUSH 10 ML FLUSH IV FLUSH SCH ×2 (08:20→21:14)
[2016-07-18] MEDS: INSULIN DETEMIR 100 UNITS/ML VIAL SQ SCH ×2 (08:28→21:19)
--- NOTE | 2016-07-18 09:07 | HHI.PR ---
Subjective Remarks On bipap overnight. Says somehow she feels improving. No n/v/d/c. Denies chest pain. feels anxious at times as she gets sob. Eating better. No fever or chills. Still with cough , not much production. has pain when she is coughing. Objective Vitals Vital Signs Date Time Temp Pulse Resp B/P Pulse Ox O2 Delivery O2 Flow Rate FiO2 07/18/16 08:48 98 21 07/18/16 08:00 98.2 82 17 186/87 95 07/18/16 04:00 96.8 84 18 115/66 96 07/18/16 00:50 99 30 07/18/16 00:00 96.7 89 18 158/66 94 07/17/16 20:51 97 Nasal Cannula 07/17/16 20:00 96.9 98 18 163/67 94 07/17/16 19:50 Nasal Cannula 2.00 07/17/16 19:00 99 07/17/16 16:08 97.6 86 18 146/65 99 07/17/16 12:11 97.3 79 17 136/63 99 07/17/16 09:41 82 I/O 07/17/16 07/17/16 07/17/16 07/18/16 07/18/16 07/18/16 07:00 15:00 23:00 07:00 15:00 23:00 # Voids 1 1 3 # Bowel Movements 1 Result Diagram: 07/16/16 0331 07/16/16 0331 Imaging Last Impressions Chest X-Ray 07/16/16 0000 Signed Impressions: Service Date/Time: Saturday, July 16, 2016 15:24 - CONCLUSION: No acute cardiopulmonary disease identified. Adan Thomas MD Objective Remarks GENERAL: This is a pleasant cachectic, very thin female, well- nourished, well-developed patient, with shortness of breath. EYES: Pupils equal round and reactive. Extraocular motions intact. No scleral icterus. No injection or drainage. ENT: Nose without bleeding, purulent drainage or septal hematoma. Throat without erythema, tonsillar hypertrophy or exudate. Uvula midline. Airway patent. NECK: Trachea midline. No JVD or lymphadenopathy. Supple, nontender, no meningeal signs. CARDIOVASCULAR: Regular rate and rhythm without murmurs, gallops, or rubs. RESPIRATORY: Shortness of breath, cough nonproductive. Decreased breath sounds. Scattered wheezing. No accessory muscle use. GASTROINTESTINAL: Abdomen soft, non-tender, nondistended. A/P Assessment and Plan 65-year-old female with past mental history of COPD, A. fib, DM, HTN who presented with shortness of breath Severe COPD with acute exacerbation with failed OP treatment. Not improving. Acute respiratory failure requiring BiPAP. 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 Chest x-ray reviewed and no evidence of infiltrate. Afebrile, mild leukocytosis 14K however patient was on tapered steroids as OP. Currently satting well on 2L NC. Solu-Medrol IV taper as tolerated. Continue scheduled and as needed nebs. O2 as needed. D Dimer negative. Mucinex for cough. Started antibiotic per pulm recommendations Patient with not much improvement. Added EZPAP, mucomist with nebs. Acapella. Pulm following Influenza A/B, sputum cx if obtainable, legionella and pneumococcal ag in urine pending Add codeine/tylenol for cough/pain with cough Diabetes mellitus, uncontrolled. Increased Levemir to 10 U BID. Additional coverage with SSI with Accu-Cheks especially while on steroids. Atrial fibrillation: Chronic. Continue aspirin and cardizem. Monitor on telemetry. HR in 110s after nebs x3 in ED. Monitor. HTN, uncontrolled, monitor VS, continue cardizem, lisinopril, add as need hydralazine PHIL: Hold lisinopril. Encourage PO hydration. Monitor kidney function, improving Mild to moderate Protein sergey malnutrition. Bring extra tray. BMI is 19, patient cachectic, bitemporal waisting, muscle waisting. Other chronic medical conditions include GERD, hyperlipidemia: Stable at this time and will continue home medications as indicated. DVT prophylaxis: Lovenox Code Status Full code Discussed Condition With Patient, nurse. Jody Sung MD Jul 18, 2016 09:07
[2016-07-18] MEDS ORDERED: ACETAMINOPHEN/CODEINE ELIX 120 MG/12 MG/5 ML CUP PO PRN (09:15)
[2016-07-18] MEDS ORDERED: PRED10PA PO (11:23)
[2016-07-18] MEDS ORDERED: CEFU1TAB20 PO (11:23)
[2016-07-18] MEDS ORDERED: BENZ100 PO (11:24)
[2016-07-18] MEDS ORDERED: NICO14DI23 T-DERMAL (11:26)
--- NOTE | 2016-07-18 11:27 | HHI.DS ---
Discharge Summary Admission Date July 11, 2016 at 00:10 Discharge Date: Jul 19, 2016 Admitting Diagnosis copd exacerbation (1) Acute respiratory failure ICD Code: J96.00 Diagnosis: Principal (2) COPD exacerbation ICD Code: J44.1 Diagnosis: Principal (3) COPD, severe ICD Code: J44.9 Diagnosis: Principal (4) Diabetic peripheral neuropathy ICD Code: E13.42 Diagnosis: Secondary (5) Benign hypertension ICD Code: 401.1 Diagnosis: Secondary (6) Mixed hyperlipidemia ICD Code: 272.2 Diagnosis: Secondary (7) Shortness of breath ICD Code: R06.02 Diagnosis: Secondary (8) Tobacco dependence, continuous ICD Code: 305.1 Diagnosis: Secondary (9) Arthritis ICD Code: M19.90 Diagnosis: Secondary Procedures none Brief History - From Admission Very pleasant 65-year-old female in [place], past medical history of COPD, tobaccoism, hypertension, diabetes, GERD, A. fib. The patient presents to the emergency room evaluation of failed outpatient treatment of COPD exacerbation. The patient says she was taking the prednisone taper dose at home and also nebulizers however she still feels shortness of breath and she is wheezing. Also complains of nonproductive cough. Denies fevers. No chills. No nausea, vomiting, diarrhea or constipation. Denies any abdominal pain. Denies chest pain of the patient's. No urinary complaints. Patient has a history of smoking one PPD, cutdown to half a pack per day for the past months. Says she was not smoking for the past 2 days. Says she's he started taking very medically for smoking cessation. CBC/BMP: 07/16/16 0331 07/16/16 0331 Significant Findings Laboratory Tests Test 07/16/16 03:31 White Blood Count 14.9 TH/MM3 (4.0-11.0) Mean Corpuscular Hemoglobin 31.2 % Concent (32.0-36.0) Red Cell Distribution Width 20.0 % (11.6-17.2) Neutrophils (%) (Auto) 95.0 % (16.0-70.0) Lymphocytes (%) (Auto) 1.9 % (9.0-44.0) Neutrophils # (Auto) 14.2 TH/MM3 (1.8-7.7) Lymphocytes # (Auto) 0.3 TH/MM3 (1.0-4.8) Blood Urea Nitrogen 30 MG/DL (7-18) Random Glucose 195 MG/DL (74-106) Imaging Last Impressions Chest X-Ray 07/16/16 0000 Signed Impressions: Service Date/Time: Saturday, July 16, 2016 15:24 - CONCLUSION: No acute cardiopulmonary disease identified. Adan Thomas MD PE at Discharge GENERAL: This is a pleasant cachectic, very thin female, well- nourished, well-developed patient, with shortness of breath. EYES: Pupils equal round and reactive. Extraocular motions intact. No scleral icterus. No injection or drainage. ENT: Nose without bleeding, purulent drainage or septal hematoma. Throat without erythema, tonsillar hypertrophy or exudate. Uvula midline. Airway patent. NECK: Trachea midline. No JVD or lymphadenopathy. Supple, nontender, no meningeal signs. CARDIOVASCULAR: Regular rate and rhythm without murmurs, gallops, or rubs. RESPIRATORY: Shortness of breath, cough nonproductive. Decreased breath sounds. Scattered wheezing. No accessory muscle use. GASTROINTESTINAL: Abdomen soft, non-tender, nondistended. Hospital Course 65-year-old female with past mental history of COPD, A. fib, DM, HTN who presented with shortness of breath Severe COPD with acute exacerbation with failed OP treatment. Slowly improving. Acute respiratory failure requiring BiPAP. Resolved. 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 Chest x -ray reviewed and no evidence of infiltrate. Afebrile, mild leukocytosis 14K however patient was on tapered steroids as OP. Currently satting well on 2L NC. Solu-Medrol IV taper as tolerated. Continue scheduled and as needed nebs. O2 as needed. D Dimer negative. Mucinex for cough. Started antibiotic per pulm recommendations Patient with not much improvement. Added EZPAP, mucomist with nebs. Acapella. Pulm following Influenza A/B, sputum cx if obtainable, legionella and pneumococcal ag in urine pending Add codeine/tylenol for cough/pain with cough Discussed with Dr Sterling weems, plan for repeat PFT Diabetes mellitus, uncontrolled. Increased Levemir to 10 U BID. Additional coverage with SSI with Accu-Cheks especially while on steroids. Atrial fibrillation: Chronic. Continue aspirin and cardizem. Monitor on telemetry. HR in 110s after nebs x3 in ED. Monitor. HTN, uncontrolled, monitor VS, continue cardizem, lisinopril, add as need hydralazine PHIL: Hold lisinopril. Encourage PO hydration. Monitor kidney function, improving Tobacco use: Counselled extensively. Patient expressed understanding. Nicotine patch. Mild to moderate Protein sergey malnutrition. Bring extra tray. BMI is 19, patient cachectic, bitemporal waisting, muscle waisting. Other chronic medical conditions include GERD, hyperlipidemia: Stable at this time and will continue home medications as indicated. DVT prophylaxis: Lovenox Patient improved, passed O2 walking test. DC homw with home pepper. Might benefit from pulm rehab. To follow up as OP with pulm. To follow up as OP with PCP and consultants. Pt Condition on Discharge: Stable Discharge Disposition: Disch w/ Home Health Serv Discharge Time: > 30 minutes Discharge Instructions DIET: Follow Instructions for: Heart Healthy Diet, Diabetic Diet Activities you can perform: Regular-No Restrictions Follow up Referrals: PCP Follow-up - 3-5 Days Pulmonology - 1 Week with Rodriguez Katz MD New Medications: Cefuroxime (Cefuroxime) 500 Mg Tab 500 MG PO BID Infection #20 Ref 0 TAB Prednisone (21) 10 mg tab Dose Pack (Prednisone (21) 10 mg tab Dose Pack) 10 Mg Pack 10 MG PO DIRECTED Inflammation #1 Ref 0 DSPK Benzonatate (Tessalon Perles) 100 Mg Cap 100 MG PO TID PRN COUGH #20 CAP Nicotine (Eq Nicotine) 14 Mg/24 Hr Dis 1 PATCH T-DERMAL DAILY smoking cessation #30 PATCH Continued Medications: Albuterol 18 GM Inh (Ventolin Hfa 18 GM Inh) 90 Mcg/Act Aer 2 PUFF INH Q4H PRN SHORTNESS OF BREATH #1 Ref 0 INHALER Albuterol 6.7 GM Inh (Proventil Hfa 6.7 GM Inh) 90 Mcg/Act Aer 2 PUFF INH Q6H PRN SHORTNESS OF BREATH #1 Ref 0 INHALER Aspirin (Aspirin Low Dose) 81 Mg Chew 81 MG CHEW DAILY Ref 0 TAB Diltiazem (Cardizem) 120 Mg Tab 240 MG PO DAILY Angina #120 Ref 0 TAB Fluticasone-Salmeterol Inh (Advair Diskus Inh) 100-50 Mcg/Blist Aer 1 PUFF INH BID Rinse mouth after use. #1 Ref 0 INHALER Insulin Glargine Inj (Lantus Inj) 1,000 Unit/10 Ml Vial 14 UNITS SQ DAILY Blood Sugar Management Ref 0 VIAL Ipratropium Neb (Ipratropium Neb) 0.5 Mg/2.5 Ml Amp 0.5 MG NEB Q6HR NEB PRN SHORTNESS OF BREATH #120 Ref 0 NEBULE Ipratropium-Albuterol Inh (Combivent Respimat Inh) 20-100 Chcf/Act Aero 1 PUFF INH QID Asthma Management #1 Ref 0 INHALER Lisinopril (Lisinopril) 20 Mg Tab 20 MG PO DAILY #30 Ref 0 TAB Melatonin (Melatonin) 10 Mg Tab 10 MG PO HS PRN SLEEP #15 Ref 0 TAB Pantoprazole (Protonix) 20 Mg Tab 20 MG PO DAILY Reflux #30 Ref 0 TAB Simvastatin (Simvastatin) 20 Mg Tab 20 MG PO BID Cholesterol Management #30 Ref 0 TAB Discontinued Medications: Prednisone (Deltasone) 20 Mg Tab 20 MG PO BID Days 5 Ref 0 TAB Jody Sung MD Jul 18, 2016 11:27
[2016-07-18] MEDS: predniSONE 20 MG TAB PO SCH (13:04)
[2016-07-18 14:19] LABS: BLOOD GAS BASE EXCESS 0.2 mmol/L (-2-2); BLOOD GAS HCO3 24 mmol/L (22-26); BLOOD GAS METHEMOGLOBIN 1.3 % (0-2); BLOOD GAS O2 HGB SATURATION 93 % (90-100); BLOOD GAS OXYGEN CONTENT 15.9 Vol % (12.0-20.0); BLOOD GAS PCO2 38 mmHg (38-42); BLOOD GAS PO2 79 mmHg (61-120); BLOOD GAS TOTAL HGB 12.2 G/DL (12.0-16.0); CRITICAL VALUE NO; DRAW SITE RT RADIAL; FIO2 21 %; NUMBER OF ARTERIAL PUNCTURES 1; TEMP CORR TO 98.6; ULNAR PULSE PRESENT
[2016-07-18 14:20] LABS: STAT NO
[2016-07-18] MEDS: cefTRIAXone INJ 1,000 MG in SODIUM CHLORIDE 0.9% INJ 100 ML IV SCH (15:04)
[2016-07-18] MEDS: ENOXAPARIN SODIUM 40 MG/0.4 ML SYRINGE SQ SCH (16:55)
[2016-07-18] MEDS ORDERED: methylPREDNISolone SOD SUCC 40 MG/1 ML VIAL IV PUSH SCH (21:00)
[2016-07-18] MEDS: RESP: ALBUTEROL 2.5 MG/IPRATROPIUM 0.5 MG NEB (SCH) NEB (21:06)
[2016-07-18] MEDS: PRAVASTATIN SOD 80 MG TAB PO SCH (21:13)
[2016-07-18] MEDS: BUDESONIDE-FORMOTEROL 160/4.5 MCG INHALER INH SCH (21:15)
[2016-07-18] MEDS: hydrALAZINE HCL 10 MG TAB PO PRN (21:29)
[2016-07-19 00:20] VITALS: BP 153/66; PULSE 79; RESP 21; TEMP 98; O2SAT 94
[2016-07-19 04:21] VITALS: BP 155/68; PULSE 77; RESP 20; TEMP 96.9; O2SAT 99
[2016-07-19] MEDS: INSULIN ASPART SUPPLEMENTAL SCALE SQ SCH ×2 (06:28→11:00)
[2016-07-19 07:57] VITALS: PULSE 68
[2016-07-19] MEDS: RESP: ALBUTEROL 2.5 MG/IPRATROPIUM 0.5 MG NEB (SCH) NEB (08:00)
[2016-07-19 08:02] VITALS: BP 154/75; PULSE 92; RESP 18; TEMP 96.7; O2SAT 96
[2016-07-19] MEDS: BUDESONIDE-FORMOTEROL 160/4.5 MCG INHALER INH SCH (09:00)
[2016-07-19] MEDS: REMOVE OLD PATCH T-DERMAL SCH (09:00)
[2016-07-19] MEDS: DOCUSATE SODIUM 50 MG/SENNA 8.6 MG TAB PO SCH (09:00)
[2016-07-19] MEDS: INSULIN DETEMIR 100 UNITS/ML VIAL SQ SCH (09:00)
[2016-07-19] MEDS: predniSONE 20 MG TAB PO SCH (09:29)
[2016-07-19] MEDS: guaiFENesin E.R. 600 MG TAB PO SCH (09:29)
[2016-07-19] MEDS: DILTIAZEM-CD 240 MG CAP ER PO SCH (09:29)
[2016-07-19] MEDS: ASPIRIN 81 MG CHEW TAB CHEW SCH (09:29)
[2016-07-19] MEDS: NICOTINE 14 MG/24 HR PATCH T-DERMAL SCH (09:30)
[2016-07-19] MEDS: LISINOPRIL 20 MG TAB PO SCH (09:30)
[2016-07-19] MEDS: SODIUM CHLORIDE 0.9% FLUSH 10 ML FLUSH IV FLUSH SCH (09:30)
[2016-07-19] MEDS: PANTOPRAZOLE SOD 20 MG DELAYED RELEASE TAB PO SCH (09:30)
--- NOTE | 2016-07-19 10:31 | HHI.PR ---
Subjective Remarks Feels much better today. She did not use bipap overnight. she d dpassed O2 walking test. Less cough and wheezing. No fever o r chills. No n/v/d/c Feels comfortable to go home. Adviced smoking cessation. Objective Vitals Vital Signs Date Time Temp Pulse Resp B/P Pulse Ox O2 Delivery O2 Flow Rate FiO2 07/19/16 08:02 96.7 92 18 154/75 96 07/19/16 07:57 Room Air 07/19/16 07:57 68 07/19/16 04:21 96.9 77 20 155/68 99 07/19/16 00:20 98.0 79 21 153/66 94 07/18/16 22:53 97 Room Air 07/18/16 22:30 89 18 160/73 97 07/18/16 21:08 98 21 07/18/16 21:07 97.9 86 18 178/78 93 07/18/16 20:00 94 07/18/16 16:44 96.9 82 17 154/72 97 07/18/16 12:01 97.1 86 16 137/61 98 I/O 07/18/16 07/18/16 07/18/16 07/19/16 07/19/16 07/19/16 07:00 15:00 23:00 07:00 15:00 23:00 Intake Total 480 ml 0 ml Balance 480 ml 0 ml Intake Oral 480 ml IV Total 0 ml # Voids 3 3 2 # Bowel Movements 2 1 Result Diagram: 07/16/16 0331 07/16/16 0331 Imaging Last Impressions Chest X-Ray 07/16/16 0000 Signed Impressions: Service Date/Time: Saturday, July 16, 2016 15:24 - CONCLUSION: No acute cardiopulmonary disease identified. Adan Thomas MD Objective Remarks GENERAL: This is a pleasant cachectic, very thin female, well- nourished, well-developed patient, with shortness of breath. EYES: Pupils equal round and reactive. Extraocular motions intact. No scleral icterus. No injection or drainage. ENT: Nose without bleeding, purulent drainage or septal hematoma. Throat without erythema, tonsillar hypertrophy or exudate. Uvula midline. Airway patent. NECK: Trachea midline. No JVD or lymphadenopathy. Supple, nontender, no meningeal signs. CARDIOVASCULAR: Regular rate and rhythm without murmurs, gallops, or rubs. RESPIRATORY: Decreased breath sounds, significantly improved. No wheezing. No accessory muscle use. GASTROINTESTINAL: Abdomen soft, non-tender, nondistended. A/P Assessment and Plan 65-year-old female with past mental history of COPD, A. fib, DM, HTN who presented with shortness of breath Severe COPD with acute exacerbation with failed OP treatment. Slowly improving. Acute respiratory failure requiring BiPAP. 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 Chest x-ray reviewed and no evidence of infiltrate. Afebrile, mild leukocytosis 14K however patient was on tapered steroids as OP. Currently satting well on 2L NC. Solu-Medrol IV taper as tolerated. Continue scheduled and as needed nebs. O2 as needed. D Dimer negative. Mucinex for cough. Started antibiotic per pulm recommendations Patient with not much improvement. Added EZPAP, mucomist with nebs. Acapella. Pulm following Influenza A/B, sputum cx if obtainable, legionella and pneumococcal ag in urine pending Add codeine/tylenol for cough/pain with cough Discussed with Dr Sterling weems, plan for repeat PFT Diabetes mellitus, uncontrolled. Increased Levemir to 10 U BID. Additional coverage with SSI with Accu-Cheks especially while on steroids. Atrial fibrillation: Chronic. Continue aspirin and cardizem. Monitor on telemetry. HR in 110s after nebs x3 in ED. Monitor. HTN, uncontrolled, monitor VS, continue cardizem, lisinopril, add as need hydralazine PHIL: Hold lisinopril. Encourage PO hydration. Monitor kidney function, improving Tobacco use: Counselled extensively. Patient expressed understanding. Nicotine patch. Mild to moderate Protein sergey malnutrition. Bring extra tray. BMI is 19, patient cachectic, bitemporal waisting, muscle waisting. Other chronic medical conditions include GERD, hyperlipidemia: Stable at this time and will continue home medications as indicated. DVT prophylaxis: Lovenox Code Status Full code Discussed Condition With Patient, nurse. Jody Sung MD Jul 19, 2016 10:31
[2016-07-19] MEDS: RESP: ALBUTEROL 2.5 MG/IPRATROPIUM 0.5 MG NEB (PRN) NEB (10:41)
[2016-07-19 10:43] VITALS: O2SAT 98
--- NOTE | 2016-07-19 10:53 | HHI.FF ---
Face to Face Verification Diagnosis: (1) COPD, severe (2) Afib (3) Diabetes mellitus (4) Mixed hyperlipidemia (5) Benign hypertension (6) Diabetic peripheral neuropathy Physical Therapy Order: Evaluate and Treat Home Health Nursing Order: Medical education Signs/symptoms of disease process Diabetic education Medication education-adverse effect Nursing assessment with vital signs I have seen patient Alba Aquino on 07/19/16. My clinical findings support the need for the requested home health care services because: Ltd mobility - disease progression Patient has SOB I certify that my clinical findings support that this patient is homebound because: Post-op weakness Hx COPD- exertion dyspnea/weakness Jody Sung MD Jul 19, 2016 10:52
--- NOTE | 2016-07-22 08:46 | RSPPFT ---
DATE OF PROCEDURE: 07/19/16 COMMENTS: VOLUMES DYNAMIC: FVC and FEV1 severely reduced. FLOWS: FEV1% and FEF 25-75 severely reduced. IMPRESSION: Severe obstructive ventilatory defect with significant improvement post-bronchodilator.
--- NOTE | 2016-07-23 20:44 | MD ---
cc: HARDIK ORTIZ ADMISSION DATE: 07/11/2016 DISCHARGE DATE: 07/19/2016 HISTORY Ms. Aquino is a 66-year-old black female, new to me with COPD. We did pulmonary functions prior to her admission and they were in the range of 25-30% and she continued to smoke right up to the time of admission. She was admitted to the intensive care unit because she was quite dyspneic off of BiPap and she spent several days there on and off BiPap until thing stabilize. Chest x-rays were unrevealing, no acute abnormalities. No evidence of heart failure or pneumonia. Blood cultures were negative but sputum was really inadequate. White count was elevated, it jamila initially while on steroids but on 07/16 it was back down to 14,000. MRSA screen nasal wash was negative. With BiPAP, inhaled bronchodilators, corticosteroids and antibiotics she has gradually improved. Arterial blood gas yesterday on room air her pO2 was up to 79 with a pH 7.4, pCO2 38 which was considerable improvement. She also had a spirometry which revealed an FEV-1 of 20-25%. She will be going home today on a nebulizer with albuterol and Atrovent three times a day, prednisone taper, Ceftin and Symbicort 160 2 puffs twice a day until I see her back in 2 weeks. I have explained to Ms. Aquino that she simply cannot smoke any longer. With these pulmonary functions continuing to smoke would inevitably result in her . I have also explained to her that we are going to continue these bronchodilator treatments. I will see her back in the office in 2 weeks and hopefully will be able to stabilize her condition. R. Hardik Ortiz MD RSShira/ROSALIE /1:42 PM /8:32 PM
== END 2016-07-19 13:46 | disposition home health service (06) | DRG 189 ==
LOC: NEPC 14:03 → NEDA 16:09 → NEPFCDU 17:40 → OBSVTOIN 07-11 00:10 → N03A 07-11 00:34 → N05A 07-16 18:57
PROVIDERS: ADMIT Hospitalist; ATTEND Hospitalist
PROC: 5A09357 Assistance with Respiratory Ventilation, Less than 24 Consecutive Hours, Continuous Positive Airway Pressure (ICD-10-PCS; principal; 2016-07-11)
DX: J96.00 Acute respiratory failure, unspecified whether with hypoxia or hypercapnia (principal); N17.9 Acute kidney failure, unspecified; E44.0 Moderate protein-calorie malnutrition; R64 Cachexia; I48.2 Chronic atrial fibrillation; E11.42 Type 2 diabetes mellitus with diabetic polyneuropathy; J44.1 Chronic obstructive pulmonary disease with (acute) exacerbation; E11.65 Type 2 diabetes mellitus with hyperglycemia; I10 Essential (primary) hypertension; Z68.1 Body mass index [BMI] 19.9 or less, adult; E78.5 Hyperlipidemia, unspecified; F17.200 Nicotine dependence, unspecified, uncomplicated; K21.9 Gastro-esophageal reflux disease without esophagitis; E78.2 Mixed hyperlipidemia; I25.10 Atherosclerotic heart disease of native coronary artery without angina pectoris; G47.30 Sleep apnea, unspecified; T38.0X5A Adverse effect of glucocorticoids and synthetic analogues, initial encounter; Z79.4 Long term (current) use of insulin; Z96.649 Presence of unspecified artificial hip joint
CPT/HCPCS: 36600; 71010; 76937; 80048; 80053; 82805; 82948; 83880; 85007; 85025; 85027; 85379; 87040; 87070; 87077; 87186; 87205; 87641; 93005; 94002; 94003; 94060; 94620; 94640; 94664; 94726; 96374; J0360; J0696; J1650; J1815; J2270; J2920; J2930; J7512; J7608; J7613

== ENCOUNTER 2016-08-28 18:16 | Emergency (ER) | payer OTHER ==
[~2016-08-28] VITALS: Ht 154.9 cm; Wt 44.0 kg
[~2016-08-28 18:16] MED LIST changes: +BENZ100 PO; +CEFU1TAB20 PO; +NICO14DI23 T-DERMAL; -PRED-503 PO; +PRED10PA PO; -PRED20 PO
[2016-08-28 18:18] VITALS: BP 180/78; PULSE 117; RESP 20; TEMP 98.7; O2SAT 98
[2016-08-28] MEDS ORDERED: diphenhydrAMINE HCL 50 MG/ML VIAL IVP ONE (20:15)
[2016-08-28] MEDS ORDERED: PROCHLORPERAZINE INJ 10 MG/2 ML VIAL IVP ONE (20:15)
[2016-08-28] MEDS ORDERED: SODIUM CHLORIDE 0.9% FLUSH 10 ML FLUSH IVF PRN (20:15)
--- NOTE | 2016-08-28 20:21 | PD ---
HPI . Head pressure Chief Complaint: ENT Complaint Time Seen by Provider: 20:12 Travel History International Travel<30 days: No Contact w/Intl Traveler<30days: No Traveled to known affect area: No History of Present Illness HPI Patient presents with a chief complaint of a pressure in her eyes and sinuses. Onset was about 2 days ago. Her pain is continuous. She rates it 10/10. She has some associated rhinorrhea. She attributed her symptoms to allergies. She has been taking Atarax and has subsequently developed a dry mouth and blurred vision. She states that this is the first time that she's taken Atarax. She has not tried anything for pain. PFSH Past Medical History Hx Anticoagulant Therapy: Yes (aspirin) Arthritis: Yes (Greater than 2 years) Asthma: No Blood Disorders: No Heart Rhythm Problems: No Cancer: No Cardiovascular Problems: Yes (HTN, Diabetes) High Cholesterol: No Chemotherapy: No Chest Pain: No Congestive Heart Failure: No COPD: Yes Cerebrovascular Accident: No Coronary Artery Disease: Yes Diabetes: Yes Endocrine: No Gastrointestinal Disorders: Yes (acid reflux, hyperacidity) GERD: Yes Genitourinary: No Headaches: Yes Hiatal Hernia: No Hypertension: Yes Immune Disorder: No Implanted Vascular Access Dvce: Yes Kidney Stones: No Musculoskeletal: No Neurologic: No Psychiatric: No Reproductive: No Respiratory: Yes Migraines: No Pneumonia: Yes Radiation Therapy: No Renal Failure: No Seizures: No Sickle Cell Disease: No Sleep Apnea: No Thyroid Disease: No Ulcer: No Menopausal: Yes : 3 Para: 3 Miscarriage: 0 : 0 Past Surgical History Abdominal Surgery: No AICD: No Arteriovenous Shunt: No Body Medical Devices: LEFT HIP REPLACEMENT Cardiac Surgery: No Section: Yes Ear Surgery: No Endocrine Surgery: No Eye Surgery: No Genitourinary Surgery: No Gynecologic Surgery: No Hysterectomy: Yes Insulin Pump: No Joint Replacement: Yes Oral Surgery: No Pacemaker: No Thoracic Surgery: No Other Surgery: Yes (LEFT HIP REPLACEMENT, LIGAMENTS IN FINGER, R CHEST TUBE ) Family History Family Hypercholesterolemia: Yes Social History Alcohol Use: No (OCC) Tobacco Use: Yes (1 ppd) Substance Use: No Allergies-Medications (Allergen,Severity, Reaction): Coded Allergies: Hctz (Verified Adverse Reaction, Mild, Nausea and Malaise, 07/06/16) Pt does not want to take Reported Meds & Prescriptions Reported Meds & Active Scripts Active Eq Nicotine (Nicotine) 14 Mg/24 Hr Dis 1 Patch T-DERMAL DAILY Tessalon Perles (Benzonatate) 100 Mg Cap 100 Mg PO TID PRN Cefuroxime (Cefuroxime Axetil) 500 Mg Tab 500 Mg PO BID Prednisone (21) 10 mg tab Dose Pack (Prednisone) 10 Mg Pack 10 Mg PO DIRECTED Ventolin Hfa 18 GM Inh (Albuterol Sulfate) 90 Mcg/Act Aer 2 Puff INH Q4H PRN Melatonin 10 Mg Tab 10 Mg PO HS PRN Ipratropium Neb (Ipratropium [place]) 0.5 Mg/2.5 Ml Amp 0.5 Mg NEB Q6HR NEB PRN Reported Cardizem (Diltiazem HCl) 120 Mg Tab 240 Mg PO DAILY Simvastatin 20 Mg Tab 20 Mg PO BID Protonix (Pantoprazole Sodium) 20 Mg Tab 20 Mg PO DAILY Lisinopril 20 Mg Tab 20 Mg PO DAILY Combivent Respimat Inh (Ipratropium-Albuterol Inh) 20-100 Snf/Act Aero 1 Puff INH QID Aspirin Low Dose (Aspirin) 81 Mg Chew 81 Mg CHEW DAILY Proventil Hfa 6.7 GM Inh (Albuterol Sulfate) 90 Mcg/Act Aer 2 Puff INH Q6H PRN Advair Diskus Inh (Fluticasone-Salmeterol Inh) 100-50 Mcg/Blist Aer 1 Puff INH BID Rinse mouth after use. Lantus Inj (Insulin Glargine) 1,000 Unit/10 Ml Vial 14 Units SQ DAILY Review of Systems Except as stated in HPI: all other systems reviewed are Neg General / Constitutional: No: Fever, Chills Eyes: Positive: Blurred Vision, Photophobia, No: Drainage, Redness HENT: Positive: Headaches, Rhinorrhea, Congestion Cardiovascular: No: Chest Pain or Discomfort Respiratory: No: Shortness of Breath Gastrointestinal: No: Nausea, Vomiting Physical Exam Narrative GENERAL: Awake and alert and in no acute distress. She is wearing sunglasses. SKIN: Warm and dry. HEAD: Atraumatic. Normocephalic. She has diffuse scalp tenderness as well as tenderness in the forehead. She also has some edema of the nasal turbinates and some clear rhinorrhea. EYES: Pupils equal and round. NECK: Trachea midline. CARDIOVASCULAR: Regular rate and rhythm. RESPIRATORY: No accessory muscle use. MUSCULOSKELETAL: No obvious deformities. No edema. NEUROLOGICAL: Awake and alert. No obvious cranial nerve deficits. Motor grossly within normal limits. Normal speech. PSYCHIATRIC: Appropriate mood and affect; insight and judgment normal. Data Data Last Documented VS Vital Signs Date Time Temp Pulse Resp B/P Pulse Ox O2 Delivery O2 Flow Rate FiO2 08/28/16 18:18 98.7 117 20 180/78 98 Room Air Orders Iv Access Insert/Monitor (08/28/16 20:12) Sodium Chloride 0.9% Flush (Ns Flush) (08/28/16 20:15) Prochlorperazine Inj (Compazine Inj) (08/28/16 20:15) Diphenhydramine Inj (Benadryl Inj) (08/28/16 20:15) MDM Medical Decision Making Medical Screen Exam Complete: Yes Emergency Medical Condition: Yes Medical Record Reviewed: Yes (her medical history is most significant for COPD. She has been seen here multiple times for COPD. Other medical problems include previous pneumothorax, hypertension, atrial fibrillation, hyperlipidemia. She has continued tobacco abuse.) Differential Diagnosis Differential diagnosis of headache includes but is not limited to migraine, muscle contraction headache, brain tumor, brain bleed Narrative Course Patient presents with the chief complaint of a pressure in her head. This is most likely related to sinus congestion. She is also complaining with a dry mouth and blurry vision which started after she started taking Atarax. I suspect that these symptoms are secondary to the Atarax. I will treat her headache with Compazine and Benadryl. I anticipate discharge and will recommend a different antihistamine such as Zyrtec or Claritin along with a steroid nasal spray. Headache is improved. The patient will be discharged home. Diagnosis Primary Impression: Headache Qualified Code: R51 - Acute nonintractable headache, unspecified headache type Additional Impression: Rhinitis Qualified Code: J30.9 - Acute allergic rhinitis, unspecified seasonality, unspecified trigger Patient Instructions: Acute Headache (DC), Allergic Rhinitis (DC), General Instructions Med/Other Pt SpecificInfo: Prescription(s) given Scripts Fluticasone Nasal [place] (Flonase Nasal [place])50 Mcg/Act [id number] Mcg EACH NARE BID #1 BOTTLE Ref 0 Prov:Dominique Bernardo MD 08/28/16 Fexofenadine (Pretty Allergy)60 Mg Tab60 Mg PO BID #60 TAB Ref 0 Prov:Dominique Bernardo MD 08/28/16 Disposition: 01 DISCHARGE HOME Condition: Stable Dominique Bernardo MD Aug 28, 2016 20:21
[2016-08-28] MEDS ORDERED: FLUT1SPR5 EACH NARE (21:06)
[2016-08-28] MEDS ORDERED: ALLE60TA PO (21:06)
== END 2016-08-28 21:40 | disposition home or self-care (01) ==
LOC: NEPD 18:16
DX: R51 Headache (principal); J31.0 Chronic rhinitis; R68.2 Dry mouth, unspecified; H53.8 Other visual disturbances; E11.9 Type 2 diabetes mellitus without complications; I10 Essential (primary) hypertension; J44.9 Chronic obstructive pulmonary disease, unspecified; I25.10 Atherosclerotic heart disease of native coronary artery without angina pectoris; K21.9 Gastro-esophageal reflux disease without esophagitis
CPT/HCPCS: 96374; 96375; 99284; J0780; J1200

== ENCOUNTER 2016-10-14 14:13 | Inpatient (IN) | payer OTHER, MEDICARE ==
[~2016-10-14] VITALS: Ht 152.4 cm; Wt 45.9 kg
[~2016-10-14 14:13] MED LIST changes: +ALLE60TA PO; +FLUT1SPR5 EACH NARE
[2016-10-14 14:57] VITALS: BP 203/88; PULSE 123; RESP 27; TEMP 98; O2SAT 99
[2016-10-14 14:58] VITALS: O2SAT 99
[2016-10-14] MEDS ORDERED: SODIUM CHLOR 0.9% 1000 ML INJ 1,000 ML IV ONE (15:00)
[2016-10-14] MEDS ORDERED: SODIUM CHLORIDE 0.9% FLUSH 10 ML FLUSH IVF PRN (15:00)
--- NOTE | 2016-10-14 15:19 | PD ---
HPI Chief Complaint: Respiratory Symptoms Time Seen by Provider: 14:50 Travel History International Travel<30 days: No Contact w/Intl Traveler<30days: No Traveled to known affect area: No History of Present Illness HPI Patient is a 66-year-old female with history of COPD, tobaccoism, hypertension, diabetes, GERD, A. fib, presents to emergency room complaints of COPD exacerbation. She reports that since yesterday, she has been feeling short of breath, that she has had a productive cough. Patient reports that she has been wheezing, reports that nothing is making her symptoms better or worse. Patient denies chest pain at this time. Reports that she is a smoker but has been cutting down on the amount of cigarettes she smokes. PFSH Past Medical History Hx Anticoagulant Therapy: Yes (aspirin) Arthritis: Yes (Greater than 2 years) Asthma: No Blood Disorders: No Heart Rhythm Problems: No Cancer: No Cardiovascular Problems: Yes (HTN, HYPERCHOLESTEROLIMIA, A-FIB) High Cholesterol: No Chemotherapy: No Chest Pain: No Congestive Heart Failure: No COPD: Yes Cerebrovascular Accident: No Coronary Artery Disease: Yes Diabetes: Yes Patient Takes Glucophage: No Diminished Hearing: No Endocrine: No Gastrointestinal Disorders: Yes (acid reflux, hyperacidity) GERD: Yes Genitourinary: No Headaches: Yes Hiatal Hernia: No Hypertension: Yes Immune Disorder: No Implanted Vascular Access Dvce: Yes Kidney Stones: No Musculoskeletal: No Neurologic: No Psychiatric: No Reproductive: No Respiratory: Yes (COPD) Immunizations Current: No Migraines: No Pneumonia: Yes Radiation Therapy: No Renal Failure: No Seizures: No Sickle Cell Disease: No Sleep Apnea: No Thyroid Disease: No Ulcer: No Menopausal: Yes : 3 Para: 3 Miscarriage: 0 : 0 Past Surgical History Abdominal Surgery: No AICD: No Arteriovenous Shunt: No Body Medical Devices: LEFT HIP REPLACEMENT Cardiac Surgery: No Section: Yes Ear Surgery: No Endocrine Surgery: No Eye Surgery: No Genitourinary Surgery: No Gynecologic Surgery: No Hysterectomy: Yes Insulin Pump: No Joint Replacement: Yes Oral Surgery: No Pacemaker: No Thoracic Surgery: No Other Surgery: Yes (Left Hip placement) Family History Family Hypercholesterolemia: Yes Social History Alcohol Use: Yes (OCC) Tobacco Use: Yes (A FEW A DAY) Substance Use: No Allergies-Medications (Allergen,Severity, Reaction): Coded Allergies: hydrochlorothiazide (Unverified Adverse Reaction, Mild, Nausea and Malaise , 09/27/16) Pt does not want to take Reported Meds & Prescriptions Reported Meds & Active Scripts Active Flonase Nasal [place] (Fluticasone Nasal [place]) 50 Mcg/Act [place] 100 Mcg EACH NARE BID Pretty Allergy (Fexofenadine HCl) 60 Mg Tab 60 Mg PO BID Eq Nicotine (Nicotine) 14 Mg/24 Hr Dis 1 Patch T-DERMAL DAILY Tessalon Perles (Benzonatate) 100 Mg Cap 100 Mg PO TID PRN Cefuroxime (Cefuroxime Axetil) 500 Mg Tab 500 Mg PO BID Prednisone (21) 10 mg tab Dose Pack (Prednisone) 10 Mg Pack 10 Mg PO DIRECTED Ventolin Hfa 18 GM Inh (Albuterol Sulfate) 90 Mcg/Act Aer 2 Puff INH Q4H PRN Melatonin 10 Mg Tab 10 Mg PO HS PRN Ipratropium Neb (Ipratropium [place]) 0.5 Mg/2.5 Ml Amp 0.5 Mg NEB Q6HR NEB PRN Reported Cardizem (Diltiazem HCl) 120 Mg Tab 240 Mg PO DAILY Simvastatin 20 Mg Tab 20 Mg PO BID Protonix (Pantoprazole Sodium) 20 Mg Tab 20 Mg PO DAILY Lisinopril 20 Mg Tab 20 Mg PO DAILY Combivent Respimat Inh (Ipratropium-Albuterol Inh) 20-100 Senior Care/Act Aero 1 Puff INH QID Aspirin Low Dose (Aspirin) 81 Mg Chew 81 Mg CHEW DAILY Proventil Hfa 6.7 GM Inh (Albuterol Sulfate) 90 Mcg/Act Aer 2 Puff INH Q6H PRN Advair Diskus Inh (Fluticasone-Salmeterol Inh) 100-50 Mcg/Blist Aer 1 Puff INH BID Rinse mouth after use. Lantus Inj (Insulin Glargine) 1,000 Unit/10 Ml Vial 14 Units SQ DAILY Review of Systems General / Constitutional: No: Fever Eyes: No: Visual changes HENT: No: Headaches Cardiovascular: No: Chest Pain or Discomfort Respiratory: Positive: Cough, Shortness of Breath, Wheezing Gastrointestinal: No: Abdominal Pain Genitourinary: No: Dysuria Musculoskeletal: No: Pain Skin: No Rash Neurologic: No: Weakness Psychiatric: No: Depression Endocrine: No: Polydipsia Hematologic/Lymphatic: No: Easy Bruising Physical Exam Narrative GENERAL: Moderate distress SKIN: Focused skin assessment warm/dry. HEAD: Atraumatic. Normocephalic. EYES: Pupils equal and round. No scleral icterus. No injection or drainage. ENT: No nasal bleeding or discharge. Mucous membranes pink and moist. NECK: Trachea midline. No JVD. CARDIOVASCULAR: Tachycardic. No murmur appreciated. RESPIRATORY: Patient with diffuse wheezing to bilateral upper and lower lobes of the lungs. GASTROINTESTINAL: Abdomen soft, non-tender, nondistended. Hepatic and splenic margins not palpable. MUSCULOSKELETAL: No obvious deformities. No clubbing. No cyanosis. No edema. NEUROLOGICAL: Awake and alert. No obvious cranial nerve deficits. Motor grossly within normal limits. Normal speech. PSYCHIATRIC: Appropriate mood and affect; insight and judgment normal. Data Data Last Documented VS Vital Signs Date Time Temp Pulse Resp B/P (MAP) Pulse Ox O2 Delivery O2 Flow Rate FiO2 10/14/16 15:46 116 36 199/86 (123) 99 Nasal Cannula 10/14/16 14:58 2.00 10/14/16 14:57 98.0 Orders Orders Complete Blood Count With Diff (10/14/16 14:56) Comprehensive Metabolic Panel (10/14/16 14:56) B-Type Natriuretic Peptide (10/14/16 14:56) Act Partial Throm Time (Ptt) (10/14/16 14:56) Prothrombin Time / Inr (Pt) (10/14/16 14:56) Magnesium (Mg) (10/14/16 14:56) Ckmb (Isoenzyme) Profile (10/14/16 14:56) Troponin I (10/14/16 14:56) Urinalysis - C+S If Indicated (10/14/16 14:56) Blood Culture (10/14/16 14:56) Iv Access Insert/Monitor (10/14/16 14:56) Electrocardiogram (10/14/16 14:56) Ecg Monitoring (10/14/16 14:56) Oximetry (10/14/16 14:56) Chest, Single Ap (10/14/16 14:56) Sodium Chloride 0.9% Flush (Ns Flush) (10/14/16 15:00) Albuterol-Ipratropium Neb (Duoneb Neb) (10/14/16 15:00) Sodium Chlor 0.9% 1000 Ml Inj (Ns 1000 M (10/14/16 15:00) Arterial Blood Gas (Abg) (10/14/16 ) Hydralazine Inj (Apresoline Inj) (10/14/16 15:45) CKMB (10/14/16 15:03) CKMB% (10/14/16 15:03) Azithromycin Inj (Zithromax Inj) (10/14/16 17:00) Magnesium Sulfate 1 Gm Premix (Magnesium (10/14/16 17:00) Admit Order (Ed Use Only) (10/14/16 17:29) Labs Laboratory Tests Test 10/14/16 15:03 10/14/16 15:05 10/14/16 15:28 White Blood Count 12.0 TH/MM3 Red Blood Count 4.70 MIL/MM3 Hemoglobin 13.2 GM/DL Hematocrit 41.7 % Mean Corpuscular Volume 88.6 FL Mean Corpuscular Hemoglobin 28.1 PG Mean Corpuscular Hemoglobin Concent 31.7 % Red Cell Distribution Width 17.1 % Platelet Count 293 TH/MM3 Mean Platelet Volume 9.8 FL Neutrophils (%) (Auto) 92.9 % Lymphocytes (%) (Auto) 5.0 % Monocytes (%) (Auto) 1.8 % Eosinophils (%) (Auto) 0.1 % Basophils (%) (Auto) 0.2 % Neutrophils # (Auto) 11.2 TH/MM3 Lymphocytes # (Auto) 0.6 TH/MM3 Monocytes # (Auto) 0.2 TH/MM3 Eosinophils # (Auto) 0.0 TH/MM3 Basophils # (Auto) 0.0 TH/MM3 CBC Comment DIFF FINAL Differential Comment Prothrombin Time 9.7 SEC Prothromb Time International Ratio 0.9 RATIO Activated Partial Thromboplast Time 21.7 SEC Blood Urea Nitrogen 10 MG/DL Creatinine 0.75 MG/DL Random Glucose 157 MG/DL Total Protein 7.7 GM/DL Albumin 3.5 GM/DL Calcium Level 8.7 MG/DL Magnesium Level 2.3 MG/DL Alkaline Phosphatase 105 U/L Aspartate Amino Transf (AST/SGOT) 21 U/L Alanine Aminotransferase (ALT/SGPT) 24 U/L Total Bilirubin 0.3 MG/DL Sodium Level 142 MEQ/L Potassium Level 4.5 MEQ/L Chloride Level 105 MEQ/L Carbon Dioxide Level 26.7 MEQ/L Anion Gap 10 MEQ/L Estimat Glomerular Filtration Rate 94 ML/MIN Total Creatine Kinase 106 U/L Creatine Kinase MB 2.4 NG/ML Troponin I LESS THAN 0.02 NG/ML B-Type Natriuretic Peptide 4 PG/ML Urine Color LIGHT-YELLOW Urine Turbidity HAZY Urine pH 7.5 Urine Specific [place] 1.007 Urine Protein 100 mg/dL Urine Glucose (UA) 300 mg/dL Urine Ketones NEG mg/dL Urine Occult Blood TRACE Urine Nitrite NEG Urine Bilirubin NEG Urine Urobilinogen LESS THAN 2.0 MG/DL Urine Leukocyte Esterase TRACE Urine RBC 3 /hpf Urine WBC 2 /hpf Urine Squamous Epithelial Cells 5 /hpf Urine Bacteria RARE /hpf Microscopic Urinalysis Comment CULT NOT INDICATED Blood Gas Puncture Site RT RADIAL Blood Gas Patient Temperature 98.6 Blood Gas HCO3 26 mmol/L Blood Gas Base Excess 0.4 mmol/L Blood Gas Oxygen Saturation 94 % Arterial Blood pH 7.32 Arterial Blood Partial Pressure CO2 51 mmHg Arterial Blood Partial Pressure O2 90 mmHG Arterial Blood Oxygen Content 16.4 Vol % Arterial Blood Carboxyhemoglobin 1.5 % Arterial Blood Methemoglobin 0.8 % Blood Gas Hemoglobin 12.4 G/DL Oxygen Delivery Device NASAL CANNULA Blood Gas Liter Flow 2 L/M MDM Medical Decision Making Medical Screen Exam Complete: Yes Emergency Medical Condition: Yes Interpretation(s) EKG at 1530: Sinus tach at 114bpm, qt/qtc: 339/406, no acute st or t wave changes Vital Signs Date Time Temp Pulse Resp B/P (MAP) Pulse Ox O2 Delivery O2 Flow Rate FiO2 10/14/16 14:57 98.0 123 27 203/88 (126) 99 Nasal Cannula 2.00 Differential Diagnosis Differential includes pneumonia, COPD exacerbation, pneumothorax, electrolyte abnormality, arrhythmia, A. fib Narrative Course Patient is a 66-year-old female who presents to emergency room complaints of shortness of breath. Patient reports that symptoms began yesterday afternoon. Reports history of COPD with exacerbations similar to today's symptoms. Patient received Solu-Medrol 125 mg IV by EMS as well as neb treatments. Plan to give 3 duo nebs. Will continue to monitor patient on a cardiac surgeon. X- ray of chest ordered. Lab work including blood cultures and abg ordered Vital Signs Date Time Temp Pulse Resp B/P (MAP) Pulse Ox O2 Delivery O2 Flow Rate FiO2 10/14/16 15:46 116 36 199/86 (123) 99 Nasal Cannula 10/14/16 14:58 99 Nasal Cannula 2.00 10/14/16 14:57 98.0 123 27 203/88 (126) 99 Nasal Cannula 2.00 Laboratory Tests Test 10/14/16 15:03 10/14/16 15:05 10/14/16 15:28 White Blood Count 12.0 TH/MM3 (4.0-11.0) Red Blood Count 4.70 MIL/MM3 (4.00-5.30) Hemoglobin 13.2 GM/DL (11.6-15.3) Hematocrit 41.7 % (35.0-46.0) Mean Corpuscular Volume 88.6 FL (80.0-100.0) Mean Corpuscular Hemoglobin 28.1 PG (27.0-34.0) Mean Corpuscular Hemoglobin Concent 31.7 % (32.0-36.0) Red Cell Distribution Width 17.1 % (11.6-17.2) Platelet Count 293 TH/MM3 (150-450) Mean Platelet Volume 9.8 FL (7.0-11.0) Neutrophils (%) (Auto) 92.9 % (16.0-70.0) Lymphocytes (%) (Auto) 5.0 % (9.0-44.0) Monocytes (%) (Auto) 1.8 % (0.0-8.0) Eosinophils (%) (Auto) 0.1 % (0.0-4.0) Basophils (%) (Auto) 0.2 % (0.0-2.0) Neutrophils # (Auto) 11.2 TH/MM3 (1.8-7.7) Lymphocytes # (Auto) 0.6 TH/MM3 (1.0-4.8) Monocytes # (Auto) 0.2 TH/MM3 (0-0.9) Eosinophils # (Auto) 0.0 TH/MM3 (0-0.4) Basophils # (Auto) 0.0 TH/MM3 (0-0.2) CBC Comment DIFF FINAL Differential Comment Prothrombin Time 9.7 SEC (9.8-11.6) Prothromb Time International Ratio 0.9 RATIO Activated Partial Thromboplast Time 21.7 SEC (24.3-30.1) Blood Urea Nitrogen 10 MG/DL (7-18) Creatinine 0.75 MG/DL (0.50-1.00) Random Glucose 157 MG/DL (74-106) Total Protein 7.7 GM/DL (6.4-8.2) Albumin 3.5 GM/DL (3.4-5.0) Calcium Level 8.7 MG/DL (8.5-10.1) Magnesium Level 2.3 MG/DL (1.5-2.5) Alkaline Phosphatase 105 U/L (45-117) Aspartate Amino Transf (AST/SGOT) 21 U/L (15-37) Alanine Aminotransferase (ALT/SGPT) 24 U/L (10-53) Total Bilirubin 0.3 MG/DL (0.2-1.0) Sodium Level 142 MEQ/L (136-145) Potassium Level 4.5 MEQ/L (3.5-5.1) Chloride Level 105 MEQ/L (98-107) Carbon Dioxide Level 26.7 MEQ/L (21.0-32.0) Anion Gap 10 MEQ/L (5-15) Estimat Glomerular Filtration Rate 94 ML/MIN (>89) Total Creatine Kinase 106 U/L (26-192) Creatine Kinase MB 2.4 NG/ML (0.5-3.6) Troponin I LESS THAN 0.02 NG/ML B-Type Natriuretic Peptide 4 PG/ML (0-100) Urine Color LIGHT-YELLOW (YELLW/STRAW) Urine Turbidity HAZY (CLEAR) Urine pH 7.5 (5.0-8.5) Urine Specific [place] 1.007 (1.002-1.035) Urine Protein 100 mg/dL (NEG-TRACE) Urine Glucose (UA) 300 mg/dL (NEG) Urine Ketones NEG mg/dL (NEG) Urine Occult Blood TRACE (NEG) Urine Nitrite NEG (NEG) Urine Bilirubin NEG (NEG) Urine Urobilinogen LESS THAN 2.0 MG/DL (LESS Urine Leukocyte Esterase TRACE (NEG) Urine RBC 3 /hpf (0-3) Urine WBC 2 /hpf (0-5) Urine Squamous Epithelial Cells 5 /hpf (0-5) Urine Bacteria RARE /hpf (NONE) Microscopic Urinalysis Comment CULT NOT INDICATED Blood Gas Puncture Site RT RADIAL Blood Gas Patient Temperature 98.6 Blood Gas HCO3 26 mmol/L (22-26) Blood Gas Base Excess 0.4 mmol/L (-2-2) Blood Gas Oxygen Saturation 94 % (90-100) Arterial Blood pH 7.32 (7.380-7.420) Arterial Blood Partial Pressure CO2 51 mmHg (38-42) Arterial Blood Partial Pressure O2 90 mmHG (61-120) Arterial Blood Oxygen Content 16.4 Vol % (12.0-20.0) Arterial Blood Carboxyhemoglobin 1.5 % (0-4) Arterial Blood Methemoglobin 0.8 % (0-2) Blood Gas Hemoglobin 12.4 G/DL (12.0-16.0) Oxygen Delivery Device NASAL CANNULA Blood Gas Liter Flow 2 L/M Last Impressions Chest X-Ray 10/14/16 [id number] Signed Impressions: Service Date/Time: Friday, October 14, 2016 15:11 - CONCLUSION: No acute disease. Alex Cosby Jr., MD Patient re-evaluated, patient continues to have sob with wheezing, will obs for COPD exacerbation Case reviewed with Dr. Calabrese who accepts pt to service Diagnosis Primary Impression: COPD exacerbation Admitting Information Admitting Physician Requests: Observation Lilia Astudillo DO Oct 14, 2016 15:19
[2016-10-14 15:36] LABS: AUTOMATED NEUTROPHIL # 11.2 TH/MM3 (1.8-7.7); BASOPHIL % 0.2 % (0.0-2.0); EOSINOPHIL % 0.1 % (0.0-4.0); HEMATOCRIT 41.7 % (35.0-46.0); HEMO FLAGS DIFF FINAL; LYMPHOCYTE # 0.6 TH/MM3 (1.0-4.8); MEAN CELL VOLUME 88.6 FL (80.0-100.0); MEAN CORPUSCULAR HEMOGLOBIN 28.1 PG (27.0-34.0); MEAN CORPUSCULAR HGB CONC 31.7 % (32.0-36.0); MONO % 1.8 % (0.0-8.0); NEUT % 92.9 % (16.0-70.0); PLATELET COUNT 293 TH/MM3 (150-450); RED CELL DISTRIBUTION WIDTH 17.1 % (11.6-17.2)
[2016-10-14 15:37] LABS: BACTERIA, URINE RARE /hpf; BLOOD, URINE TRACE (NEG); COMMENT (UR) CULT NOT INDICATED; CULTURE IF INDICATED CULT NOT INDICATED; GLUCOSE,URINE 300 mg/dL (NEG); KETONE, URINE NEG (NEG); NITRITE,URINE NEG (NEG); PH, URINE 7.5 (5.0-8.5); SQUAMOUS EPITHELIAL CELL URINE 5 /hpf (0-5); URINE COLOR LIGHT-YELLOW (YELLW/STRAW)
[2016-10-14 15:42] LABS: BLOOD GAS BASE EXCESS 0.4 mmol/L (-2-2); BLOOD GAS CARBOXYHEMOGLOBIN 1.5 % (0-4); BLOOD GAS HCO3 26 mmol/L (22-26); BLOOD GAS METHEMOGLOBIN 0.8 % (0-2); BLOOD GAS O2 HGB SATURATION 94 % (90-100); BLOOD GAS OXYGEN CONTENT 16.4 Vol % (12.0-20.0); BLOOD GAS PCO2 51 mmHg (38-42); BLOOD GAS PO2 90 mmHG (61-120); BLOOD GAS TOTAL HGB 12.4 G/DL (12.0-16.0); TEMP CORR TO 98.6
[2016-10-14 15:43] LABS: CRITICAL VALUE YES; DRAW SITE RT RADIAL; LITER FLOW 2 L/M; NUMBER OF ARTERIAL PUNCTURES 1; OXYGEN DEVICE NASAL CANNULA; STAT YES; ULNAR PULSE PRESENT
[2016-10-14] MEDS ORDERED: hydrALAZINE HCL 20 MG/ML VIAL IV PUSH ONE (15:45)
[2016-10-14 15:46] VITALS: BP 199/86; PULSE 116; RESP 36; O2SAT 99
[2016-10-14] MEDS: RESP: ALBUTEROL 2.5 MG/IPRATROPIUM 0.5 MG NEB (SCH) INH ×3 (15:47→19:38)
--- NOTE | 2016-10-14 15:47 | RADRPT ---
EXAM DATE/TIME: 10/14/2016 15:11 [facility] COMPARISON: CHEST SINGLE AP, July 16, 2016, 15:24. INDICATIONS : Short of breath. MEDICAL HISTORY : Emphysema. Chronic obstructive pulmonary disease. SURGICAL HISTORY : None. ENCOUNTER: Initial ACUITY: 1 day PAIN SCORE: 0/10 LOCATION: Bilateral chest FINDINGS: A single view of the chest demonstrates the lungs to be symmetrically aerated without evidence of mas s, infiltrate or effusion. The cardiomediastinal contours are unremarkable. Osseous structures are intact. CONCLUSION: No acute disease. Alex Cosby Jr., MD on October 14, 2016 at 15:45 Board Certified Radiologist. This report was verified electronically.
[2016-10-14 15:53] LABS: APTT (PATIENT) 21.7 SEC (24.3-30.1); INTERNATIONAL NORMALIZED RATIO 0.9 RATIO; PROTHROMBIN TIME - PATIENT 9.7 SEC (9.8-11.6)
[2016-10-14 16:32] LABS: ALKALINE PHOSPHATASE 105 U/L (45-117); ALT (GPT) 24 U/L (10-53); ANION GAP 10 MEQ/L (5-15); AST (GOT) 21 U/L (15-37); BICARBONATE 26.7 MEQ/L (21.0-32.0); BLOOD UREA NITROGEN 10 MG/DL (7-18); CHLORIDE 105 MEQ/L (98-107); CREATINE KINASE 106 U/L (26-192); GLOMERULAR FILTRATION RATE 94 ML/MIN (>89); MAGNESIUM 2.3 MG/DL (1.5-2.5); SODIUM (NA) 142 MEQ/L (136-145); TOTAL BILIRUBIN ADULT 0.3 MG/DL (0.2-1.0)
[2016-10-14 16:34] LABS: POTASSIUM 4.5 MEQ/L (3.5-5.1)
[2016-10-14 16:46] LABS: CKMB 2.4 NG/ML (0.5-3.6)
[2016-10-14] MEDS ORDERED: AZITHROMYCIN INJ 500 MG in SODIUM CHLOR 0.9% 250 ML INJ 250 ML IV ONE (17:00)
[2016-10-14] MEDS ORDERED: MAGNESIUM SULFATE 1 GM PREMIX 100 ML IV SCH (17:00)
[2016-10-14] MEDS ORDERED: SODIUM CHLORIDE 0.9% FLUSH 10 ML FLUSH IV FLUSH PRN (17:45)
[2016-10-14] MEDS ORDERED: GLUCAGON 1 MG/ML VIAL OTHER PRN (17:45)
[2016-10-14] MEDS ORDERED: LACTULOSE SYRUP 20 GM/30 ML CUP PO PRN (17:45)
[2016-10-14] MEDS ORDERED: PROCHLORPERAZINE 25 MG SUPP RECTAL PRN (17:45)
[2016-10-14] MEDS ORDERED: NALOXONE HCL 0.4 MG/ML AMP IV PRN (17:45)
[2016-10-14] MEDS ORDERED: MORPHINE SULFATE 4 MG/ML INJ IV PRN ×2 (17:45)
[2016-10-14] MEDS ORDERED: BISACODYL 10 MG SUPP RECTAL PRN (17:45)
[2016-10-14] MEDS ORDERED: SENNOSIDES 8.6 MG TAB PO PRN (17:45)
[2016-10-14] MEDS ORDERED: MAGNESIUM HYDROXIDE SUSP 30 ML CUP PO PRN (17:45)
[2016-10-14] MEDS ORDERED: ACETAMINOPHEN 325 MG TAB PO PRN (17:45)
[2016-10-14] MEDS ORDERED: DEXTROSE 50% IN WATER 50 ML VIAL(D50) IV PRN (17:45)
[2016-10-14] MEDS ORDERED: ONDANSETRON HCL 4 MG/2 ML VIAL IVP PRN (17:45)
[2016-10-14] MEDS: methylPREDNISolone SOD SUCC 125 MG/2 ML VIAL IVP SCH (18:13)
[2016-10-14] MEDS: ENOXAPARIN SODIUM 40 MG/0.4 ML SYRINGE SQ SCH (18:14)
--- NOTE | 2016-10-14 18:28 | HHI.HP ---
[facility] Admission Diagnosis COPD exacerbation Diagnoses: (1) Shortness of breath Diagnosis: Principal (2) COPD, severe Diagnosis: Principal (3) COPD exacerbation Diagnosis: Principal (4) Tobacco dependence, continuous Diagnosis: Principal (5) Benign hypertension Diagnosis: Secondary (6) Mixed hyperlipidemia Diagnosis: Secondary Chief Complaint: Respiratory symptoms Travel History International Travel<30 Days: No Contact w/Intl Traveler <30 Da: No Traveled to Known Affected Are: No History of Present Illness Patient is a 66-year-old female with history of COPD, tobaccoism, hypertension, diabetes, GERD, A. fib, presents to emergency room complaints of COPD exacerbation. She reports that since yesterday, she has been feeling short of breath, that she has had a productive cough. Patient reports that she has been wheezing, reports that nothing is making her symptoms better or worse. Patient denies chest pain at this time. Reports that she is a smoker but has been cutting down on the amount of cigarettes she smokes. Patient is still actively smoking. Has not quit smoking yet. Review of Systems Constitutional: COMPLAINS OF: Fatigue, Weight loss, DENIES: Diaphoretic episodes, Fever, Weight gain, Chills, Dizziness, Change in appetite Endocrine: DENIES: Abnorml menstrual pattern, Heat/cold intolerance Eyes: DENIES: Blurred vision, Diplopia, Eye inflammation, Eye pain Ears, nose, mouth, throat: DENIES: Tinnitus, Hearing loss, Vertigo, Nasal discharge, Oral lesions, Odynophagia Respiratory: COMPLAINS OF: Cough, Wheezing, Sputum production, Shortness of breath, DENIES: Apneas, Snoring, Hemoptysis Cardiovascular: DENIES: Chest pain, Palpitations, Syncope, Dyspnea on Exertion Gastrointestinal: DENIES: Abdominal pain, Black stools, Bloody stools, Constipation Genitourinary: DENIES: Abnormal vaginal bleeding, Dysmenorrhea, Dyspareunia Musculoskeletal: DENIES: Joint pain, Muscle aches, Stiffness, Joint Swelling, Back pain Integumentary: DENIES: Abnormal pigmentation, Pruritus, Rash, Nail changes Hematologic/lymphatic: DENIES: Bruising, Lymphadenopathy Immunologic/allergic: DENIES: Eczema, Urticaria Neurologic: COMPLAINS OF: Abnormal gait, Poor Balance, DENIES: Headache, Paresthesias, Seizures, Speech Problems, Tremor Psychiatric: COMPLAINS OF: Anxiety, Depression, DENIES: Confusion, Mood changes Past Family Social History Past Medical History Osteoarthritis Chronic aspirin use Hypertension Hyperlipidemia Atrial fibrillation not on Coumadin or warfarin COPD and actively smoking Coronary artery disease Diabetes mellitus on insulin. Chronic headaches COPD Past Surgical History Left total hip replacement section Hysterectomy Reported Medications Reported Meds & Active Scripts Active Flonase Nasal [place] (Fluticasone Nasal [place]) 50 Mcg/Act [place]ell 100 Mcg EACH NARE BID Pretty Allergy (Fexofenadine HCl) 60 Mg Tab 60 Mg PO BID Eq Nicotine (Nicotine) 14 Mg/24 Hr Dis 1 Patch T-DERMAL DAILY Tessalon Perles (Benzonatate) 100 Mg Cap 100 Mg PO TID PRN Cefuroxime (Cefuroxime Axetil) 500 Mg Tab 500 Mg PO BID Prednisone (21) 10 mg tab Dose Pack (Prednisone) 10 Mg Pack 10 Mg PO DIRECTED Ventolin Hfa 18 GM Inh (Albuterol Sulfate) 90 Mcg/Act Aer 2 Puff INH Q4H PRN Melatonin 10 Mg Tab 10 Mg PO HS PRN Ipratropium Neb (Ipratropium [place]) 0.5 Mg/2.5 Ml Amp 0.5 Mg NEB Q6HR NEB PRN Reported Cardizem (Diltiazem HCl) 120 Mg Tab 240 Mg PO DAILY Simvastatin 20 Mg Tab 20 Mg PO BID Protonix (Pantoprazole Sodium) 20 Mg Tab 20 Mg PO DAILY Lisinopril 20 Mg Tab 20 Mg PO DAILY Combivent Respimat Inh (Ipratropium-Albuterol Inh) 20-100 Halfway/Act Aero 1 Puff INH QID Aspirin Low Dose (Aspirin) 81 Mg Chew 81 Mg CHEW DAILY Proventil Hfa 6.7 GM Inh (Albuterol Sulfate) 90 Mcg/Act Aer 2 Puff INH Q6H PRN Advair Diskus Inh (Fluticasone-Salmeterol Inh) 100-50 Mcg/Blist Aer 1 Puff INH BID Rinse mouth after use. Lantus Inj (Insulin Glargine) 1,000 Unit/10 Ml Vial 14 Units SQ DAILY Allergies: Coded Allergies: hydrochlorothiazide (Verified Adverse Reaction, Mild, Nausea and Malaise, 10/14/16) Pt does not want to take Active Ordered Medications Current Medications Sodium Chloride (NS Flush) 2 ml UNSCH PRN IVF FLUSH AFTER USING IV ACCESS; Start 10/14/16 at 15:00 Albuterol/ Ipratropium (Duoneb Neb) 1 ampule Q15M INH Last administered on 15:48; Start 10/14/16 at 15:00; Stop 10/14/16 at 15:31; Status DC Sodium Chloride 1,000 ml @ 999 mls/hr BOLUS ONCE IV Last administered on 15:24; Start 10/14/16 at 15:00; Stop 10/14/16 at 16:00; Status DC Hydralazine HCl (Apresoline Inj) 10 mg ONCE ONCE IV PUSH Last administered on 10/14/16 18:07; Start 10/14/16 at 15:45; Stop 10/14/16 at 15:46; Status DC Azithromycin 500 mg/Sodium Chloride 250 ml @ 250 mls/hr ONCE ONCE IV ; Start 10/14/16 at 17:00; Stop 10/14/16 at 17:59; Status DC Magnesium Sulfate/ Dextrose 100 ml @ 100 mls/hr Q1H IV ; Start 10/14/16 at 17:00 ; Stop 10/14/16 at 18:59 Dextrose (D50w (Vial) Inj) 50 ml UNSCH PRN IV HYPOGLYCEMIA-SEE COMMENTS; Start 10/14/16 at 17:45 Glucagon (Glucagon Inj) 1 mg UNSCH PRN OTHER HYPOGLYCEMIA-SEE COMMENTS; Start 10/14/16 at 17:45 Insulin Aspart (NovoLOG SUPPLEMENTAL SCALE) 1 ACHS SLIDING SCALE SQ ; Start 10/14/16 at 21:00 Sodium Chloride 1,000 ml @ 100 mls/hr Q10H IV ; Start 10/14/16 at 17:36; Status UNV Sodium Chloride (NS Flush) 2 ml UNSCH PRN IV FLUSH FLUSH AFTER USING IV ACCESS ; Start 10/14/16 at 17:45; Status UNV Sodium Chloride (NS Flush) 2 ml BID IV FLUSH ; Start 10/14/16 at 21:00; Status UNV Acetaminophen (Tylenol) 650 mg Q4H PRN PO TEMP > 100.4; Start 10/14/16 at 17:45 Ondansetron HCl (Zofran Inj) 4 mg Q6H PRN IVP NAUSEA OR VOMITING; Start at 17:45; Status UNV Prochlorperazine (Compazine Supp) 25 mg Q12H PRN MT NAUSEA OR VOMITING; Start 10/14/16 at 17:45; Status UNV Enoxaparin Sodium (Lovenox Inj) 40 mg Q24H SQ Last administered on 10/14/16t 18: 14; Start 10/14/16 at 18:00 Acetaminophen (Tylenol) 650 mg Q6H PRN PO PAIN SCALE 1 TO 2; Start 10/14/16 at 17:45 Oxycodone/ Acetaminophen (Percocet 5-325 Mg) 1 tab Q6H PRN PO PAIN SCALE 3 TO 5; Start 10/14/16 at 17:45; Status UNV Oxycodone/ Acetaminophen (Percocet 10-325 Mg) 1 tab Q6H PRN PO PAIN SCALE 6 TO 10; Start 10/14/16 at 17:45; Status UNV Morphine Sulfate (Morphine Inj) 2 mg Q3H PRN IV Pain 3-5; if unable to take PO ; Start 10/14/16 at 17:45 Morphine Sulfate (Morphine Inj) 4 mg Q3H PRN IV Pain 6-10;if unable to take PO ; Start 10/14/16 at 17:45 Naloxone HCl (Narcan Inj) 0.4 mg UNSCH PRN IV SEE LABEL COMMENTS; Start at 17:45 Senna/Docusate Sodium (Radha-Colace) 1 tab BID PO ; Start 10/14/16 at 21:00 Magnesium Hydroxide (Milk Of Magnesia Liq) 30 ml Q12H PRN PO MILD - MODERATE CONSTIPATION; Start 10/14/16 at 17:45 Sennosides (Senokot) 17.2 mg Q12H PRN PO MODERATE - SEVERE CONSTIPATION; Start 10/14/16 at 17:45; Status UNV Bisacodyl (Dulcolax Supp) 10 mg DAILY PRN RECTAL SEVERE CONSITIPATION; Start at 17:45 Lactulose (Lactulose Liq) 30 ml DAILY PRN PO SEVERE CONSITIPATION; Start at 17:45 Sodium Chloride (NS Flush) 2 ml BID IV FLUSH ; Start 10/14/16 at 21:00; Status UNV Sodium Chloride (NS Flush) 2 ml UNSCH PRN IV FLUSH FLUSH AFTER USING IV ACCESS ; Start 10/14/16 at 17:45; Status UNV Albuterol/ Ipratropium (Duoneb Neb) 1 ampule Q4HR NEB INH ; Start 10/14/16 at 20 :00 Albuterol Sulfate (Albuterol Neb) 2.5 mg Q2HR NEB PRN INH SHORTNESS OF BREATH; Start 10/14/16 at 17:45 Budesonide/ Formoterol Fumarate (Symbicort 160-4.5 Inh) 2 puff Q12HR INH ; Start 10/14/16 at 21:00 Methylprednisolone Sodium Succinate (SoluMEDROL INJ) 60 mg Q6H IVP Last administered on 10/14/16t 18:13; Start 10/14/16 at 18:00 Ceftriaxone Sodium 1000 mg/ Sodium Chloride 100 ml @ 200 mls/hr Q24H IV ; Start 10/14/16 at 17:45; Status UNV Nicotine (Habitrol 21 Mg Patch.24 Hr) 1 patch DAILY TD ; Start 10/15/16 at 09:00 Azithromycin 500 mg/Sodium Chloride 250 ml @ 250 mls/hr Q24H IV ; Start at 17:45; Status UNV Guaifenesin (Mucinex Er) 600 mg BID PO ; Start 10/14/16 at 21:00 Aspirin (Aspirin Chew) 81 mg DAILY CHEW ; Start 10/15/16 at 09:00 Benzonatate (Tessalon) 100 mg TID PRN PO COUGH; Start 10/14/16 at 17:45 Insulin Glargine (Lantus Inj) 14 units DAILY SQ ; Start 10/15/16 at 09:00 Lisinopril (Prinivil) 20 mg DAILY PO ; Start 10/15/16 at 09:00 Pantoprazole Sodium (Protonix) 20 mg DAILY PO ; Start 10/15/16 at 09:00; Status UNV Diltiazem HCl (Cardizem Cd) 240 mg DAILY PO ; Start 10/15/16 at 09:00 Loratadine (Claritin) 10 mg DAILY PO ; Start 10/15/16 at 09:00 Non-Formulary Medication 100 mcg BID EACH NARE ; Start 10/14/16 at 21:00; Status UNV Non-Formulary Medication 10 mg HS PRN PO SLEEP; Start 10/14/16 at 17:45; Status UNV Non-Formulary Medication 20 mg BID PO ; Start 10/14/16 at 21:00; Status UNV Miscellaneous Information 1 DAILY T-DERMAL ; Start 10/16/16 at 09:00 Family History Hypercholesterolemia Social History Occasional alcohol tobacco daily still Denies any illicit Physical Exam Vital Signs Vital Signs Date Time Temp Pulse Resp B/P (MAP) Pulse Ox O2 Delivery O2 Flow Rate FiO2 10/14/16 15:46 116 36 199/86 (123) 99 Nasal Cannula 10/14/16 14:58 99 Nasal Cannula 2.00 10/14/16 14:57 98.0 123 27 203/88 (126) 99 Nasal Cannula 2.00 Physical Exam GENERAL: This is a well-nourished, well-developed patient, in no apparent distress. Appears quite cachectic and thin SKIN: No rashes, ecchymoses or lesions. Cool and dry. HEAD: Atraumatic. Normocephalic. No temporal or scalp tenderness. EYES: Pupils equal round and reactive. Extraocular motions intact. No scleral icterus. No injection or drainage. ENT: Nose without bleeding, purulent drainage or septal hematoma. Throat without erythema, tonsillar hypertrophy or exudate. Uvula midline. Airway patent. NECK: Trachea midline. No JVD or lymphadenopathy. Supple, nontender, no meningeal signs. Tongue is midline CARDIOVASCULAR: IRRegular rate and rhythm without murmurs, gallops, or rubs. RESPIRATORY: Coarse with rhonchi and wheezes bilaterally. Breath sounds equal bilaterally. No rales GASTROINTESTINAL: Abdomen soft, non-tender, nondistended. No hepato-splenomegaly , or palpable masses. No guarding. MUSCULOSKELETAL: Extremities without clubbing, cyanosis, or edema. No joint tenderness, effusion, or edema noted. No calf tenderness. Negative Homans sign bilaterally. NEUROLOGICAL: Awake and alert. Cranial nerves II through XII intact. Motor and sensory grossly within normal limits. Five out of 5 muscle strength in all muscle groups. Normal speech. Insight and judgment is poor Mood and behaviors appropriate Laboratory Laboratory Tests Test 10/14/16 15:03 10/14/16 15:05 10/14/16 15:28 White Blood Count 12.0 Red Blood Count 4.70 Hemoglobin 13.2 Hematocrit 41.7 Mean Corpuscular Volume 88.6 Mean Corpuscular Hemoglobin 28.1 Mean Corpuscular Hemoglobin Concent 31.7 Red Cell Distribution Width 17.1 Platelet Count 293 Mean Platelet Volume 9.8 Neutrophils (%) (Auto) 92.9 Lymphocytes (%) (Auto) 5.0 Monocytes (%) (Auto) 1.8 Eosinophils (%) (Auto) 0.1 Basophils (%) (Auto) 0.2 Neutrophils # (Auto) 11.2 Lymphocytes # (Auto) 0.6 Monocytes # (Auto) 0.2 Eosinophils # (Auto) 0.0 Basophils # (Auto) 0.0 CBC Comment DIFF FINAL Differential Comment Prothrombin Time 9.7 Prothromb Time International Ratio 0.9 Activated Partial Thromboplast Time 21.7 Blood Urea Nitrogen 10 Creatinine 0.75 Random Glucose 157 Total Protein 7.7 Albumin 3.5 Calcium Level 8.7 Magnesium Level 2.3 Alkaline Phosphatase 105 Aspartate Amino Transf (AST/SGOT) 21 Alanine Aminotransferase (ALT/SGPT) 24 Total Bilirubin 0.3 Sodium Level 142 Potassium Level 4.5 Chloride Level 105 Carbon Dioxide Level 26.7 Anion Gap 10 Estimat Glomerular Filtration Rate 94 Total Creatine Kinase 106 Creatine Kinase MB 2.4 Troponin I LESS THAN 0.02 B-Type Natriuretic Peptide 4 Urine Color LIGHT-YELLOW Urine Turbidity HAZY Urine pH 7.5 Urine Specific Thornton 1.007 Urine Protein 100 Urine Glucose (UA) 300 Urine Ketones NEG Urine Occult Blood TRACE Urine Nitrite NEG Urine Bilirubin NEG Urine Urobilinogen LESS THAN 2.0 Urine Leukocyte Esterase TRACE Urine RBC 3 Urine WBC 2 Urine Squamous Epithelial Cells 5 Urine Bacteria RARE Microscopic Urinalysis Comment CULT NOT INDICATED Blood Gas Puncture Site RT RADIAL Blood Gas Patient Temperature 98.6 Blood Gas HCO3 26 Blood Gas Base Excess 0.4 Blood Gas Oxygen Saturation 94 Arterial Blood pH 7.32 Arterial Blood Partial Pressure CO2 51 Arterial Blood Partial Pressure O2 90 Arterial Blood Oxygen Content 16.4 Arterial Blood Carboxyhemoglobin 1.5 Arterial Blood Methemoglobin 0.8 Blood Gas Hemoglobin 12.4 Oxygen Delivery Device NASAL CANNULA Blood Gas Liter Flow 2 Date/Time Source Procedure Growth Status 10/14/16 15:08 Blood Peripheral Aerobic Blood Culture Pending Received 10/14/16 15:08 Blood Peripheral Anaerobic Blood Culture Pending Received Result Diagram: 10/14/16 1503 10/14/16 1503 Imaging Last Impressions Chest X-Ray 10/14/16 1456 Signed Impressions: Service Date/Time: Friday, October 14, 2016 15:11 - CONCLUSION: No acute disease. MD Graeme Mcgovern Jr. VTE Risk Assessment Graeme VTE Risk Assessment: Mod/High Risk (score >= 2) Caprini Risk Assessment Model Point Value = 1 Point Value = 2 Point Value = 3 Point Value = 5 Age 41-60 Minor surgery BMI > 25 kg/m2 Swollen legs Varicose veins or History of unexplained or recurrent spontaneous Oral contraceptives or hormone replacement Sepsis (< 1 month) Serious lung disease, including pneumonia (< 1 month) Abnormal pulmonary function Acute myocardial infarction Congestive heart failure (< 1 month) History of inflammatory bowel disease Medical patient at bed rest Age 61-74 Arthroscopic surgery Major open surgery (> 45 min) Laparoscopic surgery (> 45 min) Malignancy Confined to bed (> 72 hours) Immobilizing plaster cast Central venous access Age >= 75 History of VTE Family history of VTE Factor V Leiden Prothrombin [id number] Lupus anticoagulant Anticardiolipin antibodies Elevated serum homocysteine Heparin-induced thrombocytopenia Other congenital or acquired thrombophilia Stroke (< 1 month) Elective arthroplasty Hip, pelvis, or leg fracture Acute spinal cord injury (< 1 month) Prophylaxis Regimen Total Risk Factor Score Risk Level Prophylaxis Regimen 0-1 Low Early ambulation 2 Moderate Order ONE of the following: *Sequential Compression Device (SCD) *Heparin 5000 units SQ BID 3-4 Higher Order ONE of the following medications: *Heparin 5000 units SQ TID *Enoxaparin/Lovenox 40 mg SQ daily (WT < 150 kg, CrCl > 30 mL/min) *Enoxaparin/Lovenox 30 mg SQ daily (WT < 150 kg, CrCl > 10-29 mL/min) *Enoxaparin/Lovenox 30 mg SQ BID (WT < 150 kg, CrCl > 30 mL/min) AND/OR *Sequential Compression Device (SCD) 5 or more Highest Order ONE of the following medications: *Heparin 5000 units SQ TID (Preferred with Epidurals) *Enoxaparin/Lovenox 40 mg SQ daily (WT < 150 kg, CrCl > 30 mL/min) *Enoxaparin/Lovenox 30 mg SQ daily (WT < 150 kg, CrCl > 10-29 mL/min) *Enoxaparin/Lovenox 30 mg SQ BID (WT < 150 kg, CrCl > 30 mL/min) AND *Sequential Compression Device (SCD) Assessment and Plan Problem List: (1) COPD, severe ICD Code: J44.9 - Severe chronic obstructive pulmonary disease Status: Acute (2) Shortness of breath ICD Code: R06.02 - Shortness of breath Status: Acute (3) Tobacco dependence, continuous Status: Chronic (4) Mixed hyperlipidemia Status: Chronic (5) Benign hypertension Status: Chronic (6) COPD exacerbation ICD Code: J44.1 - Chronic obstructive pulmonary disease with (acute) exacerbation Status: Acute (7) Acute respiratory failure ICD Code: J96.00 - Acute respiratory failure, unspecified whether with hypoxia or hypercapnia Status: Acute (8) Afib ICD Code: I48.91 - Unspecified atrial fibrillation Status: Chronic (9) Diabetes mellitus ICD Code: E11.9 - Type 2 diabetes mellitus without complications Status: Chronic Assessment and Plan COPD exacerbation continue on DuoNeb's continue on Symbicort continue on Mucinex continue on incentive spirometry continue on antibiotics with Zithromax and Rocephin Tobacco abuse recommend smoking cessation continue on NicoDerm patch Diabetes continue on Accu-Cheks before meals and at bedtime and sliding scale coverage with Lantus Flatulence Will give gas ex when necessary Hypertension home medications Hyperlipidemia home medications Physical therapy and occupational therapy to eval and treat Lovenox Mucinex oxygen DuoNeb's incentive spirometry Case management regarding discharge planning Code Status Full code Discussed Condition With Discussed with patient, and RN. Discussed with ER physician and patient Physician Certification 2 Midnight Certification Type: Admission for Inpatient Services Order for Inpatient Services The services are ordered in accordance with Medicare regulations or non- Medicare payer requirements, as applicable. In the case of services not specified as inpatient-only, they are appropriately provided as inpatient services in accordance with the 2-midnight benchmark. Estimated LOS (days): 3 3 days is the estimated time the patient will need to remain in the hospital, assuming treatment plan goals are met and no additional complications. Post-Hospital Plan: Not yet determined Hardik Butler DO Oct 14, 2016 18:28
[2016-10-14 19:39] VITALS: O2SAT 98
[2016-10-14] MEDS: LORazepam 2 MG/ML VIAL IV PUSH PRN (20:33)
[2016-10-14 20:43] VITALS: BP 189/82; PULSE 68; RESP 20; TEMP 97.2; O2SAT 99
[2016-10-14] MEDS ORDERED: SODIUM CHLORIDE 0.9% FLUSH 10 ML FLUSH IV FLUSH SCH (21:00)
[2016-10-14] MEDS: INSULIN ASPART SUPPLEMENTAL SCALE SQ SCH (21:00)
[2016-10-14] MEDS ORDERED: MELATONIN 5 MG TAB PO PRN (21:00)
[2016-10-14] MEDS: SODIUM CHLORIDE 0.9% FLUSH 10 ML FLUSH IV FLUSH SCH (21:00)
[2016-10-14] MEDS: DOCUSATE SODIUM 50 MG/SENNA 8.6 MG TAB PO SCH (21:47)
[2016-10-14] MEDS: guaiFENesin E.R. 600 MG TAB PO SCH (21:47)
[2016-10-14] MEDS: PRAVASTATIN SOD 40 MG TAB PO SCH (21:47)
[2016-10-14] MEDS: oxyCODONE/ACETAMINOPHEN 10 MG/325 MG TAB PO PRN (21:47)
[2016-10-14] MEDS: cefTRIAXone INJ 1,000 MG in SODIUM CHLORIDE 0.9% INJ 100 ML IV SCH (21:49)
[2016-10-14] MEDS: RESP: ALBUTEROL 2.5 MG/3 ML NEB (PRN) INH (22:07)
[2016-10-14 22:10] VITALS: O2SAT 99
[2016-10-14] MEDS: BUDESONIDE-FORMOTEROL 160/4.5 MCG INHALER INH SCH (22:35)
[2016-10-14] MEDS: FLUTICASONE PROPIONATE 50 MCG/ACT 16 GM NASAL SPRAY NASAL SCH (22:35)
[2016-10-15] VITALS (11 sets, daily range): BP systolic 118–162; BP diastolic 60–77; PULSE 91–113; RESP 20–23; TEMP 97.1–98.7; O2SAT 93–99
[2016-10-15] MEDS: methylPREDNISolone SOD SUCC 125 MG/2 ML VIAL IVP SCH ×5 (00:29→23:52)
[2016-10-15] MEDS: RESP: ALBUTEROL 2.5 MG/IPRATROPIUM 0.5 MG NEB (SCH) INH ×6 (00:35→20:36)
[2016-10-15] MEDS: LORazepam 2 MG/ML VIAL IV PUSH PRN (01:51)
[2016-10-15] MEDS: SODIUM CHLOR 0.9% 1000 ML INJ 1,000 ML IV SCH ×3 (03:36→23:53)
[2016-10-15] MEDS: INSULIN ASPART SUPPLEMENTAL SCALE SQ SCH ×4 (05:45→22:25)
[2016-10-15] MEDS: SODIUM CHLORIDE 0.9% FLUSH 10 ML FLUSH IV FLUSH SCH ×2 (07:24→20:58)
[2016-10-15 08:10] LABS: AUTOMATED NEUTROPHIL # 13.9 TH/MM3 (1.8-7.7); BASOPHIL # 0.1 TH/MM3 (0-0.2); BASOPHIL % 0.4 % (0.0-2.0); HEMATOCRIT 40.8 % (35.0-46.0); HEMO FLAGS DIFF FINAL; LYMPH % 5.5 % (9.0-44.0); LYMPHOCYTE # 0.8 TH/MM3 (1.0-4.8); MEAN CELL VOLUME 87.8 FL (80.0-100.0); MEAN CORPUSCULAR HEMOGLOBIN 27.9 PG (27.0-34.0); MEAN CORPUSCULAR HGB CONC 31.8 % (32.0-36.0); MONO % 3.1 % (0.0-8.0); PLATELET COUNT 227 TH/MM3 (150-450); RED BLOOD COUNT 4.64 MIL/MM3 (4.00-5.30); RED CELL DISTRIBUTION WIDTH 16.8 % (11.6-17.2); WHITE BLOOD COUNT 15.3 TH/MM3 (4.0-11.0)
[2016-10-15 08:46] LABS: ALT (GPT) 21 U/L (10-53); ANION GAP 8 MEQ/L (5-15); AST (GOT) 18 U/L (15-37); BICARBONATE 27.7 MEQ/L (21.0-32.0); BLOOD UREA NITROGEN 14 MG/DL (7-18); CHLORIDE 104 MEQ/L (98-107); GLOMERULAR FILTRATION RATE 94 ML/MIN (>89); MAGNESIUM 2.6 MG/DL (1.5-2.5); POTASSIUM 3.7 MEQ/L (3.5-5.1); SODIUM (NA) 140 MEQ/L (136-145)
[2016-10-15 08:55] LABS: ALKALINE PHOSPHATASE 108 U/L (45-117); CREATINE KINASE 141 U/L (26-192); FREE T4 1.12 NG/DL (0.76-1.46); TOTAL BILIRUBIN ADULT 0.2 MG/DL (0.2-1.0)
[2016-10-15] MEDS: LISINOPRIL 20 MG TAB PO SCH (08:55)
[2016-10-15] MEDS: DOCUSATE SODIUM 50 MG/SENNA 8.6 MG TAB PO SCH ×2 (08:55→20:57)
[2016-10-15] MEDS: guaiFENesin E.R. 600 MG TAB PO SCH ×2 (08:55→20:58)
[2016-10-15] MEDS: DILTIAZEM-CD 240 MG CAP ER PO SCH (08:55)
[2016-10-15] MEDS: PANTOPRAZOLE SOD 20 MG DELAYED RELEASE TAB PO SCH (08:55)
[2016-10-15] MEDS: ASPIRIN 81 MG CHEW TAB CHEW SCH (08:55)
[2016-10-15] MEDS: LORATADINE 10 MG TAB PO SCH (08:56)
[2016-10-15] MEDS: NICOTINE 21 MG/24 HR PATCH TD SCH (08:56)
[2016-10-15] MEDS: BUDESONIDE-FORMOTEROL 160/4.5 MCG INHALER INH SCH ×2 (08:56→20:58)
[2016-10-15] MEDS: FLUTICASONE PROPIONATE 50 MCG/ACT 16 GM NASAL SPRAY NASAL SCH ×2 (08:56→20:58)
[2016-10-15] MEDS ORDERED: INSULIN GLARGINE 1,000 UNITS/10 ML VIAL SQ SCH (09:00)
[2016-10-15] MEDS: INSULIN DETEMIR 100 UNITS/ML VIAL SQ SCH (09:11)
--- NOTE | 2016-10-15 09:51 | EKG ---
Date Performed: 10/14/2016 Time Performed: 15:30:55 PTAGE: 66 years EKG: SINUS TACHYCARDIA ABNORMAL RHYTHM ECG PREVIOUS TRACING : 07/10/2016 16.11 DOCTOR: Arsen Vizcarra Interpretating Date/Time 10/15/2016 09:50:15
[2016-10-15 10:36] LABS: HEMOGLOBIN A1a 0.7 %; HEMOGLOBIN A1b 2.2 %; HEMOGLOBIN Ao 81.8 %; HEMOGLOBIN LA1C 2.6 %; HEMOGLOBIN P3 4.5 %
--- NOTE | 2016-10-15 14:59 | HHI.PR ---
Subjective Remarks Follow up COPD exacerbation. The patient is still having dyspnea and cough. No chest pain. Denies nausea, vomiting. Objective Vitals Vital Signs Date Time Temp Pulse Resp B/P (MAP) Pulse Ox O2 Delivery O2 Flow Rate FiO2 10/15/16 12:09 97.3 113 21 118/69 (85) 93 10/15/16 10:06 Nasal Cannula 2.00 10/15/16 09:16 98 2.00 10/15/16 08:04 97.6 105 23 153/63 (93) 97 10/15/16 04:00 97.4 106 20 146/73 (97) 98 10/15/16 03:20 96 Nasal Cannula 4.00 10/15/16 00:00 97.1 106 20 162/77 (105) 98 10/14/16 23:39 Nasal Cannula 4.00 10/14/16 22:10 99 Nasal Cannula 2.00 10/14/16 20:43 97.2 68 20 189/82 (117) 99 10/14/16 20:34 10/14/16 19:39 98 Nasal Cannula 2.00 10/14/16 15:46 116 36 199/86 (123) 99 Nasal Cannula 10/14/16 14:58 99 Nasal Cannula 2.00 10/14/16 14:57 98.0 123 27 203/88 (126) 99 Nasal Cannula 2.00 I/O 10/14/16 10/14/16 10/14/16 10/15/16 10/15/16 10/15/16 06:59 14:59 22:59 06:59 14:59 22:59 Intake Total 1200 ml 120 ml Balance 1200 ml 120 ml Intake Oral 120 ml IV Total 1200 ml # Voids 2 # Bowel Movements 1 Result Diagram: 10/15/16 0725 10/15/16 0725 Imaging Last Impressions Chest X-Ray 10/14/16 4316 Signed Impressions: Service Date/Time: Friday, October 14, 2016 15:11 - CONCLUSION: No acute disease. Alex Cosby Jr., MD Objective Remarks Gen: No acute distress. CV: RRR Lungs: Diffuse wheeze. Breathing is nonlabored. Abd: Soft, nontender, nondistended. Ext: No lower extremity edema. Procedures None Urinary Catheter: No Vascular Central Line Catheter: No A/P Problem List: (1) COPD, severe ICD Code: J44.9 - Severe chronic obstructive pulmonary disease Status: Acute (2) Shortness of breath ICD Code: R06.02 - Shortness of breath Status: Acute (3) Tobacco dependence, continuous Status: Chronic (4) Mixed hyperlipidemia Status: Chronic (5) Benign hypertension Status: Chronic (6) COPD exacerbation ICD Code: J44.1 - Chronic obstructive pulmonary disease with (acute) exacerbation Status: Acute (7) Acute respiratory failure ICD Code: J96.00 - Acute respiratory failure, unspecified whether with hypoxia or hypercapnia Status: Acute (8) Afib ICD Code: I48.91 - Unspecified atrial fibrillation Status: Chronic (9) Diabetes mellitus ICD Code: E11.9 - Type 2 diabetes mellitus without complications Status: Chronic Assessment and Plan 1. COPD exacerbation: Continue supplemental oxygen, steroids, bronchodilators, antibiotics. 2. Tobacco abuse: Counselled to quit. 3. Diabetes mellitus: Monitor accuchecks and cover with sliding scale insulin. 4. Hypertension: Continue home medications. 5. Hyperlipidemia: Continue home medications. 6. DVT prophylaxis: Lovenox. Reddy Perez MD Oct 15, 2016 14:59
[2016-10-15] MEDS: ENOXAPARIN SODIUM 40 MG/0.4 ML SYRINGE SQ SCH (17:09)
[2016-10-15] MEDS: AZITHROMYCIN INJ 500 MG in SODIUM CHLOR 0.9% 250 ML INJ 250 ML IV SCH (17:10)
[2016-10-15] MEDS: BENZONATATE 100 MG CAP PO PRN ×2 (17:24→23:52)
[2016-10-15] MEDS: PRAVASTATIN SOD 40 MG TAB PO SCH (20:57)
[2016-10-15] MEDS: cefTRIAXone INJ 1,000 MG in SODIUM CHLORIDE 0.9% INJ 100 ML IV SCH (20:59)
[2016-10-15] MEDS: oxyCODONE/ACETAMINOPHEN 5 MG/325 MG TAB PO PRN (23:58)
[2016-10-16] VITALS (10 sets, daily range): BP systolic 136–180; BP diastolic 63–87; PULSE 93–110; RESP 18–22; TEMP 97.2–98.3; O2SAT 95–99
[2016-10-16] MEDS: RESP: ALBUTEROL 2.5 MG/IPRATROPIUM 0.5 MG NEB (SCH) INH ×6 (00:16→19:55)
[2016-10-16] MEDS: methylPREDNISolone SOD SUCC 125 MG/2 ML VIAL IVP SCH ×4 (05:51→23:32)
[2016-10-16] MEDS: INSULIN ASPART SUPPLEMENTAL SCALE SQ SCH ×4 (06:21→21:10)
[2016-10-16] MEDS: INSULIN DETEMIR 100 UNITS/ML VIAL SQ SCH (09:00)
[2016-10-16] MEDS: DILTIAZEM-CD 240 MG CAP ER PO SCH (09:00)
[2016-10-16] MEDS: REMOVE OLD PATCH T-DERMAL SCH (09:00)
[2016-10-16] MEDS: FLUTICASONE PROPIONATE 50 MCG/ACT 16 GM NASAL SPRAY NASAL SCH ×2 (09:26→21:12)
[2016-10-16] MEDS: BUDESONIDE-FORMOTEROL 160/4.5 MCG INHALER INH SCH ×2 (09:26→21:12)
[2016-10-16] MEDS: NICOTINE 21 MG/24 HR PATCH TD SCH (09:26)
[2016-10-16] MEDS: ASPIRIN 81 MG CHEW TAB CHEW SCH (09:28)
[2016-10-16] MEDS: guaiFENesin E.R. 600 MG TAB PO SCH ×2 (09:28→21:11)
[2016-10-16] MEDS: PANTOPRAZOLE SOD 20 MG DELAYED RELEASE TAB PO SCH (09:28)
[2016-10-16] MEDS: LISINOPRIL 20 MG TAB PO SCH (09:28)
[2016-10-16] MEDS: LORATADINE 10 MG TAB PO SCH (09:29)
[2016-10-16] MEDS: DOCUSATE SODIUM 50 MG/SENNA 8.6 MG TAB PO SCH ×2 (09:30→21:11)
[2016-10-16] MEDS: SODIUM CHLORIDE 0.9% FLUSH 10 ML FLUSH IV FLUSH SCH ×2 (09:31→21:12)
[2016-10-16 09:32] LABS: AUTOMATED NEUTROPHIL # 18.8 TH/MM3 (1.8-7.7); BASOPHIL % 0.1 % (0.0-2.0); HEMATOCRIT 33.2 % (35.0-46.0); HEMO FLAGS DIFF FINAL; LYMPH % 2.7 % (9.0-44.0); LYMPHOCYTE # 0.5 TH/MM3 (1.0-4.8); MEAN CELL VOLUME 88.4 FL (80.0-100.0); MEAN CORPUSCULAR HEMOGLOBIN 27.9 PG (27.0-34.0); MEAN CORPUSCULAR HGB CONC 31.5 % (32.0-36.0); MONO % 2.3 % (0.0-8.0); NEUT % 94.9 % (16.0-70.0); PLATELET COUNT 210 TH/MM3 (150-450); RED BLOOD COUNT 3.75 MIL/MM3 (4.00-5.30); RED CELL DISTRIBUTION WIDTH 17.1 % (11.6-17.2); WHITE BLOOD COUNT 19.8 TH/MM3 (4.0-11.0)
[2016-10-16 10:03] LABS: BICARBONATE 29.1 MEQ/L (21.0-32.0); POTASSIUM 3.9 MEQ/L (3.5-5.1)
[2016-10-16] MEDS: SODIUM CHLOR 0.9% 1000 ML INJ 1,000 ML IV SCH ×2 (11:55→23:46)
[2016-10-16] MEDS: BENZONATATE 100 MG CAP PO PRN ×2 (12:11→21:11)
--- NOTE | 2016-10-16 13:28 | HHI.PR ---
Subjective Remarks Follow up COPD. Patient still with dyspnea, wheeze, cough. Slightly better today. No chest pain. Objective Vitals Vital Signs Date Time Temp Pulse Resp B/P (MAP) Pulse Ox O2 Delivery O2 Flow Rate FiO2 10/16/16 12:32 97.8 102 20 151/69 (96) 95 10/16/16 09:00 96 Nasal Cannula 3.00 Humidified 10/16/16 08:10 97.9 93 18 148/67 (94) 99 10/16/16 07:46 99 Nasal Cannula 2.00 10/16/16 04:00 97.2 95 20 163/72 (102) 95 10/16/16 00:19 98 Nasal Cannula 3.00 10/16/16 00:00 Nasal Cannula 3.00 Humidified 10/16/16 00:00 97.4 93 18 136/63 (87) 98 10/15/16 20:38 98 Nasal Cannula 3.00 10/15/16 20:01 96 10/15/16 20:00 Nasal Cannula 3.00 Humidified 10/15/16 20:00 98.1 97 20 128/60 (82) 93 10/15/16 16:04 98.7 91 21 124/60 (81) 99 I/O 10/15/16 10/15/16 10/15/16 10/16/16 10/16/16 10/16/16 07:00 15:00 23:00 07:00 15:00 23:00 Intake Total 120 ml 710 ml 3240 ml Output Total 950 ml Balance 120 ml 710 ml 2290 ml Intake Oral 120 ml 360 ml 940 ml IV Total 350 ml 2300 ml Output Urine Total 950 ml # Voids 2 3 # Bowel Movements 1 1 0 Result Diagram: 10/16/16 0830 10/16/16 0830 Imaging Last Impressions Chest X-Ray 10/14/16 [id number] Signed Impressions: Service Date/Time: Friday, October 14, 2016 15:11 - CONCLUSION: No acute disease. Alex Cosby Jr., MD Objective Remarks General: No acute distress. Heart: Regular rate and rhythm. No murmur. Lungs: Diffuse wheezing, better air movement today. Breathing is nonlabored. Abdomen: Soft, nontender, nondistended. Extremities: No lower extremity edema. Psych: Alert and oriented. Procedures None Urinary Catheter: No Vascular Central Line Catheter: No A/P Problem List: (1) COPD, severe ICD Code: J44.9 - Severe chronic obstructive pulmonary disease Status: Acute (2) Shortness of breath ICD Code: R06.02 - Shortness of breath Status: Acute (3) Tobacco dependence, continuous Status: Chronic (4) Mixed hyperlipidemia Status: Chronic (5) Benign hypertension Status: Chronic (6) COPD exacerbation ICD Code: J44.1 - Chronic obstructive pulmonary disease with (acute) exacerbation Status: Acute (7) Acute respiratory failure ICD Code: J96.00 - Acute respiratory failure, unspecified whether with hypoxia or hypercapnia Status: Acute (8) Afib ICD Code: I48.91 - Unspecified atrial fibrillation Status: Chronic (9) Diabetes mellitus ICD Code: E11.9 - Type 2 diabetes mellitus without complications Status: Chronic Assessment and Plan 1. COPD exacerbation: Continue supplemental oxygen, steroids, bronchodilators, antibiotics. 2. Tobacco abuse: Counselled to quit. 3. Diabetes mellitus: Monitor accuchecks and cover with sliding scale insulin. 4. Hypertension: Continue home medications. 5. Hyperlipidemia: Continue home medications. 6. Atrial fibrillation: Rate controlled. Patient states that she no longer takes Cardizem and was switched by her PCP to digoxin. She does not know the dose of the digoxin, but will contact a family member to find out. 7. DVT prophylaxis: Lovenox. Reddy Perez MD Oct 16, 2016 13:28
[2016-10-16] MEDS ORDERED: DIGO0.12 PO (14:12)
[2016-10-16] MEDS: ENOXAPARIN SODIUM 40 MG/0.4 ML SYRINGE SQ SCH (17:11)
[2016-10-16] MEDS: AZITHROMYCIN INJ 500 MG in SODIUM CHLOR 0.9% 250 ML INJ 250 ML IV SCH (17:11)
[2016-10-16] MEDS: PRAVASTATIN SOD 40 MG TAB PO SCH (21:11)
[2016-10-16] MEDS: cefTRIAXone INJ 1,000 MG in SODIUM CHLORIDE 0.9% INJ 100 ML IV SCH (21:13)
[2016-10-16] MEDS: oxyCODONE/ACETAMINOPHEN 5 MG/325 MG TAB PO PRN (23:42)
[2016-10-17] VITALS (12 sets, daily range): BP systolic 163–188; BP diastolic 80–92; PULSE 98–116; RESP 18–22; TEMP 97.4–98.4; O2SAT 92–97
[2016-10-17] MEDS: RESP: ALBUTEROL 2.5 MG/IPRATROPIUM 0.5 MG NEB (SCH) INH ×5 (00:47→19:56)
[2016-10-17] MEDS: SIMETHICONE 125 MG CHEWABLE TAB PO PRN ×3 (02:18→23:40)
[2016-10-17] MEDS: BENZONATATE 100 MG CAP PO PRN ×3 (02:18→21:14)
[2016-10-17] MEDS: methylPREDNISolone SOD SUCC 125 MG/2 ML VIAL IVP SCH ×4 (05:54→23:40)
[2016-10-17] MEDS: SODIUM CHLORIDE 0.9% FLUSH 10 ML FLUSH IV FLUSH PRN ×2 (05:55→23:40)
[2016-10-17] MEDS: INSULIN ASPART SUPPLEMENTAL SCALE SQ SCH ×4 (06:03→21:33)
[2016-10-17] MEDS: oxyCODONE/ACETAMINOPHEN 10 MG/325 MG TAB PO PRN (06:07)
[2016-10-17] MEDS: REMOVE OLD PATCH T-DERMAL SCH (09:00)
[2016-10-17] MEDS: INSULIN DETEMIR 100 UNITS/ML VIAL SQ SCH (09:22)
[2016-10-17] MEDS: LORATADINE 10 MG TAB PO SCH (09:25)
[2016-10-17] MEDS: DOCUSATE SODIUM 50 MG/SENNA 8.6 MG TAB PO SCH ×2 (09:25→21:20)
[2016-10-17] MEDS: guaiFENesin E.R. 600 MG TAB PO SCH ×2 (09:25→21:14)
[2016-10-17] MEDS: DIGOXIN 0.125 MG TAB PO SCH (09:25)
[2016-10-17] MEDS: LISINOPRIL 20 MG TAB PO SCH (09:25)
[2016-10-17] MEDS: PANTOPRAZOLE SOD 20 MG DELAYED RELEASE TAB PO SCH (09:25)
[2016-10-17] MEDS: NICOTINE 21 MG/24 HR PATCH TD SCH (09:26)
[2016-10-17] MEDS: ASPIRIN 81 MG CHEW TAB CHEW SCH (09:26)
[2016-10-17] MEDS: FLUTICASONE PROPIONATE 50 MCG/ACT 16 GM NASAL SPRAY NASAL SCH ×2 (09:28→21:00)
[2016-10-17] MEDS: SODIUM CHLORIDE 0.9% FLUSH 10 ML FLUSH IV FLUSH SCH ×2 (09:28→21:16)
[2016-10-17] MEDS: BUDESONIDE-FORMOTEROL 160/4.5 MCG INHALER INH SCH ×2 (09:29→21:19)
[2016-10-17 09:36] LABS: AUTOMATED NEUTROPHIL # 17.3 TH/MM3 (1.8-7.7); BASOPHIL % 0.1 % (0.0-2.0); HEMATOCRIT 37.1 % (35.0-46.0); LYMPH % 2.4 % (9.0-44.0); LYMPHOCYTE # 0.4 TH/MM3 (1.0-4.8); MEAN CELL VOLUME 88.6 FL (80.0-100.0); MEAN CORPUSCULAR HEMOGLOBIN 28.3 PG (27.0-34.0); NEUT % 94.5 % (16.0-70.0); PLATELET COUNT 219 TH/MM3 (150-450); RED BLOOD COUNT 4.19 MIL/MM3 (4.00-5.30); RED CELL DISTRIBUTION WIDTH 17.4 % (11.6-17.2); WHITE BLOOD COUNT 18.3 TH/MM3 (4.0-11.0)
[2016-10-17 09:37] LABS: HEMO FLAGS AUTO DIFF
[2016-10-17 10:12] LABS: SCAN/DIFF AUTO DIFF CONFIRMED
[2016-10-17] MEDS: SODIUM CHLOR 0.9% 1000 ML INJ 1,000 ML IV SCH ×2 (10:20→21:34)
--- NOTE | 2016-10-17 15:50 | HHI.PR ---
Subjective Remarks Follow-up COPD exacerbation, cough. Patient states that she feels "about the same" as yesterday. Denies chest pain. Objective Vitals Vital Signs Date Time Temp Pulse Resp B/P (MAP) Pulse Ox O2 Delivery O2 Flow Rate FiO2 10/17/16 15:36 97 10/17/16 12:00 98.0 114 20 166/80 (108) 95 10/17/16 11:30 93 10/17/16 08:00 98 10/17/16 08:00 97.4 103 18 181/81 (114) 92 10/17/16 07:56 94 Nasal Cannula 2.00 10/17/16 07:15 Room Air 10/17/16 04:00 97.6 109 20 163/90 (114) 93 10/17/16 04:00 Room Air 10/17/16 00:49 94 10/17/16 00:02 Room Air 10/17/16 00:00 97.8 110 22 184/90 (121) 93 10/16/16 20:00 Room Air 10/16/16 20:00 98.3 104 22 180/83 (115) 95 10/16/16 20:00 110 10/16/16 16:36 97.8 109 20 159/87 (111) 95 I/O 10/16/16 10/16/16 10/16/16 10/17/16 10/17/16 10/17/16 07:00 15:00 23:00 07:00 15:00 23:00 Intake Total 3240 ml 830 ml 1140 ml Output Total 950 ml 300 ml Balance 2290 ml -300 ml 830 ml 1140 ml Intake Oral 940 ml 480 ml 240 ml IV Total 2300 ml 350 ml 900 ml Output Urine Total 950 ml 300 ml # Voids 3 9 # Bowel Movements 0 1 1 Result Diagram: 10/17/16 0810 10/16/16 0830 Imaging Last Impressions Chest X-Ray 10/14/16 5816 Signed Impressions: Service Date/Time: Friday, October 14, 2016 15:11 - CONCLUSION: No acute disease. Alex Cosby Jr., MD Objective Remarks General: No acute distress. Heart: Regular rate and rhythm. No murmur. Lungs: Diffuse wheezing, better air movement today. Breathing is nonlabored. Abdomen: Soft, nontender, nondistended. Extremities: No lower extremity edema. Psych: Alert and oriented. Procedures None Urinary Catheter: No Vascular Central Line Catheter: No A/P Problem List: (1) COPD, severe ICD Code: J44.9 - Severe chronic obstructive pulmonary disease Status: Acute (2) Shortness of breath ICD Code: R06.02 - Shortness of breath Status: Acute (3) Tobacco dependence, continuous Status: Chronic (4) Mixed hyperlipidemia Status: Chronic (5) Benign hypertension Status: Chronic (6) COPD exacerbation ICD Code: J44.1 - Chronic obstructive pulmonary disease with (acute) exacerbation Status: Acute (7) Acute respiratory failure ICD Code: J96.00 - Acute respiratory failure, unspecified whether with hypoxia or hypercapnia Status: Acute (8) Afib ICD Code: I48.91 - Unspecified atrial fibrillation Status: Chronic (9) Diabetes mellitus ICD Code: E11.9 - Type 2 diabetes mellitus without complications Status: Chronic Assessment and Plan 1. COPD exacerbation: Continue supplemental oxygen, steroids, bronchodilators, antibiotics. 2. Tobacco abuse: Counselled to quit. 3. Diabetes mellitus: Monitor accuchecks and cover with sliding scale insulin. 4. Hypertension: Continue lisinopril. Add amlodipine. 5. Hyperlipidemia: Continue home medications. 6. Atrial fibrillation: Rate controlled. Patient states that she no longer takes Cardizem and was switched by her PCP to digoxin. She does not know the dose of the digoxin, but will contact a family member to find out. Serum digoxin level is subtherapeutic. Digoxin started at 0.125 mg daily. 7. DVT prophylaxis: Lovenox. Reddy Perez MD Oct 17, 2016 15:50
[2016-10-17] MEDS: amLODIPine BESYLATE 5 MG TAB PO SCH (16:31)
[2016-10-17] MEDS: AZITHROMYCIN INJ 500 MG in SODIUM CHLOR 0.9% 250 ML INJ 250 ML IV SCH (17:47)
[2016-10-17] MEDS: ENOXAPARIN SODIUM 40 MG/0.4 ML SYRINGE SQ SCH (17:51)
[2016-10-17] MEDS: ACETAMINOPHEN 325 MG TAB PO PRN ×2 (17:56→23:40)
[2016-10-17] MEDS ORDERED: CARVEDILOL 3.125 MG TAB PO SCH (21:00)
[2016-10-17] MEDS: PRAVASTATIN SOD 40 MG TAB PO SCH (21:14)
[2016-10-17] MEDS: cefTRIAXone INJ 1,000 MG in SODIUM CHLORIDE 0.9% INJ 100 ML IV SCH (21:15)
[2016-10-18] VITALS (11 sets, daily range): BP systolic 149–182; BP diastolic 82–98; PULSE 103–126; RESP 18–20; TEMP 97.3–98.8; O2SAT 92–98
[2016-10-18] MEDS: RESP: ALBUTEROL 2.5 MG/IPRATROPIUM 0.5 MG NEB (SCH) INH ×5 (00:17→16:02)
[2016-10-18] MEDS: SODIUM CHLOR 0.9% 1000 ML INJ 1,000 ML IV SCH ×3 (01:36→20:52)
[2016-10-18] MEDS: methylPREDNISolone SOD SUCC 125 MG/2 ML VIAL IVP SCH ×4 (05:23→23:59)
[2016-10-18] MEDS: ACETAMINOPHEN 325 MG TAB PO PRN ×2 (05:54→21:15)
[2016-10-18] MEDS: INSULIN ASPART SUPPLEMENTAL SCALE SQ SCH ×4 (06:08→21:19)
[2016-10-18] MEDS: ASPIRIN 81 MG CHEW TAB CHEW SCH (09:00)
[2016-10-18] MEDS: REMOVE OLD PATCH T-DERMAL SCH (09:00)
[2016-10-18] MEDS: SODIUM CHLORIDE 0.9% FLUSH 10 ML FLUSH IV FLUSH SCH ×2 (09:00→20:59)
[2016-10-18] MEDS: FLUTICASONE PROPIONATE 50 MCG/ACT 16 GM NASAL SPRAY NASAL SCH ×2 (09:00→20:56)
[2016-10-18] MEDS: BUDESONIDE-FORMOTEROL 160/4.5 MCG INHALER INH SCH ×2 (09:00→20:56)
[2016-10-18] MEDS: INSULIN DETEMIR 100 UNITS/ML VIAL SQ SCH (09:37)
[2016-10-18] MEDS: amLODIPine BESYLATE 5 MG TAB PO SCH (09:40)
[2016-10-18] MEDS: DOCUSATE SODIUM 50 MG/SENNA 8.6 MG TAB PO SCH ×2 (09:40→20:54)
[2016-10-18] MEDS: DIGOXIN 0.125 MG TAB PO SCH (09:41)
[2016-10-18] MEDS: LORATADINE 10 MG TAB PO SCH (09:41)
[2016-10-18 09:42] LABS: BICARBONATE 26.8 MEQ/L (21.0-32.0)
[2016-10-18] MEDS: PANTOPRAZOLE SOD 20 MG DELAYED RELEASE TAB PO SCH (09:42)
[2016-10-18] MEDS: LISINOPRIL 20 MG TAB PO SCH (09:42)
[2016-10-18] MEDS: NICOTINE 21 MG/24 HR PATCH TD SCH (09:42)
[2016-10-18] MEDS: guaiFENesin E.R. 600 MG TAB PO SCH ×2 (09:42→20:54)
[2016-10-18 10:04] LABS: HEMATOCRIT 43.4 % (35.0-46.0); HEMO FLAGS AUTO DIFF; MEAN CELL VOLUME 90.9 FL (80.0-100.0); MEAN CORPUSCULAR HEMOGLOBIN 27.9 PG (27.0-34.0); MEAN CORPUSCULAR HGB CONC 30.7 % (32.0-36.0); PLATELET COUNT 242 TH/MM3 (150-450); RED BLOOD COUNT 4.78 MIL/MM3 (4.00-5.30); RED CELL DISTRIBUTION WIDTH 17.7 % (11.6-17.2); WHITE BLOOD COUNT 13.7 TH/MM3 (4.0-11.0)
[2016-10-18 10:24] LABS: POTASSIUM 4.4 MEQ/L (3.5-5.1)
[2016-10-18 10:48] LABS: NEUTROPHIL # MANUAL DIFF 12.2 TH/MM3 (1.8-7.7); POLYS (SEG NEUTROPHILS) 89 % (16-70); WBC DIFF SAMPLE 100
[2016-10-18 10:49] LABS: PLATELET ESTIMATE SMEAR NORMAL (NORMAL); PLATELET MORPHOLOGY NORMAL (NORMAL); SCAN/DIFF FINAL DIFF MANUAL
[2016-10-18] MEDS: BENZONATATE 100 MG CAP PO PRN (17:58)
--- NOTE | 2016-10-18 17:59 | HHI.PR ---
Subjective Remarks Patient reports she still feels short of breath. Heart rate still elevated around 110. No chest pain. Objective Vitals Vital Signs Date Time Temp Pulse Resp B/P (MAP) Pulse Ox O2 Delivery O2 Flow Rate FiO2 10/18/16 16:03 97 10/18/16 16:00 97.8 110 20 149/84 (105) 95 10/18/16 12:00 97.8 103 20 182/88 (119) 95 10/18/16 11:56 98 10/18/16 08:00 113 10/18/16 08:00 97.3 106 20 167/96 (119) 96 10/18/16 07:35 94 10/18/16 07:15 Room Air 10/18/16 04:09 98.3 113 20 174/82 (112) 92 10/18/16 04:00 98.3 113 20 174/82 (112) 92 10/18/16 00:00 98.8 126 18 164/95 (118) 96 10/17/16 20:01 98.4 114 22 188/85 (119) 93 10/17/16 20:01 Room Air 10/17/16 19:58 94 10/17/16 19:55 116 I/O 10/17/16 10/17/16 10/17/16 10/18/16 10/18/16 10/18/16 06:59 14:59 22:59 06:59 14:59 22:59 Intake Total 1140 ml 1103 ml 480 ml 720 ml Output Total 2000 ml 3000 ml Balance 1140 ml -897 ml -2520 ml 720 ml Intake Oral 240 ml 480 ml 720 ml IV Total 900 ml 1103 ml Output Urine Total 2000 ml 3000 ml # Voids 9 2 4 # Bowel Movements 2 1 1 Result Diagram: 10/18/16 0720 10/18/16 0720 Imaging Last Impressions Chest X-Ray 10/14/16 1456 Signed Impressions: Service Date/Time: Friday, October 14, 2016 15:11 - CONCLUSION: No acute disease. Alex Cosby Jr., MD Objective Remarks GENERAL: Elderly female in no apparent distress. CARDIOVASCULAR: Rate of around 110 and irregular rhythm without murmurs, gallops , or rubs. RESPIRATORY: Good respiratory efforts. Diminished breath sounds bilaterally. Faint expiratory wheezing. GASTROINTESTINAL: Abdomen soft, non-tender, non-distended. Normal active bowel sounds MUSCULOSKELETAL: Extremities without cyanosis, or edema. NEURO: Alert & Oriented x4 to person, place, time, situation. Moves all ext x4 PSYCH: Appropriate mood and affect. Procedures None A/P Problem List: (1) COPD, severe ICD Code: J44.9 - Severe chronic obstructive pulmonary disease Status: Acute (2) Shortness of breath ICD Code: R06.02 - Shortness of breath Status: Acute (3) Tobacco dependence, continuous Status: Chronic (4) Mixed hyperlipidemia Status: Chronic (5) Benign hypertension Status: Chronic (6) COPD exacerbation ICD Code: J44.1 - Chronic obstructive pulmonary disease with (acute) exacerbation Status: Acute (7) Acute respiratory failure ICD Code: J96.00 - Acute respiratory failure, unspecified whether with hypoxia or hypercapnia Status: Acute (8) Afib ICD Code: I48.91 - Unspecified atrial fibrillation Status: Chronic (9) Diabetes mellitus ICD Code: E11.9 - Type 2 diabetes mellitus without complications Status: Chronic Assessment and Plan 66-year-old female with: 1. COPD exacerbation: Continue supplemental oxygen, steroids, bronchodilators, antibiotics. 2. Tobacco abuse: Counselled to quit. 3. Diabetes mellitus: Monitor accuchecks and cover with sliding scale insulin. 4. Hypertension: Continue lisinopril. Add amlodipine. 5. Hyperlipidemia: Continue home medications. 6. Atrial fibrillation: Rate still uncontrolled. Will give an extra dose of 0.125 mg of digoxin. Patient believes she was taking 0.25 mg daily. Resume home dose. 7. DVT prophylaxis: Lovenox. Catrachita Key MD Oct 18, 2016 17:59
[2016-10-18] MEDS ORDERED: DIGOXIN 0.125 MG TAB PO ONE (18:00)
[2016-10-18] MEDS: AZITHROMYCIN INJ 500 MG in SODIUM CHLOR 0.9% 250 ML INJ 250 ML IV SCH (18:02)
[2016-10-18] MEDS: ENOXAPARIN SODIUM 40 MG/0.4 ML SYRINGE SQ SCH (18:06)
[2016-10-18] MEDS: PRAVASTATIN SOD 40 MG TAB PO SCH (20:54)
[2016-10-18] MEDS: cefTRIAXone INJ 1,000 MG in SODIUM CHLORIDE 0.9% INJ 100 ML IV SCH (20:55)
[2016-10-18] MEDS: SIMETHICONE 125 MG CHEWABLE TAB PO PRN (21:15)
[2016-10-19] VITALS: BP 149/80; PULSE 101; RESP 16; TEMP 98.1; O2SAT 100
[2016-10-19 04:00] VITALS: BP 165/94; PULSE 98; RESP 12; TEMP 98.4
[2016-10-19] MEDS: methylPREDNISolone SOD SUCC 125 MG/2 ML VIAL IVP SCH ×2 (05:56→11:07)
[2016-10-19] MEDS: INSULIN ASPART SUPPLEMENTAL SCALE SQ SCH ×2 (06:08→11:00)
[2016-10-19] MEDS: SODIUM CHLOR 0.9% 1000 ML INJ 1,000 ML IV SCH (06:09)
[2016-10-19 08:00] VITALS: BP 176/86; PULSE 93; RESP 16; TEMP 98.1; O2SAT 95
[2016-10-19 09:00] VITALS: PULSE 95
[2016-10-19] MEDS: REMOVE OLD PATCH T-DERMAL SCH (09:00)
[2016-10-19] MEDS: SODIUM CHLORIDE 0.9% FLUSH 10 ML FLUSH IV FLUSH SCH (09:00)
[2016-10-19] MEDS: BUDESONIDE-FORMOTEROL 160/4.5 MCG INHALER INH SCH (09:00)
[2016-10-19] MEDS: FLUTICASONE PROPIONATE 50 MCG/ACT 16 GM NASAL SPRAY NASAL SCH (09:00)
[2016-10-19] MEDS ORDERED: DIGOXIN 0.25 MG TAB PO SCH (09:00)
[2016-10-19] MEDS: LISINOPRIL 20 MG TAB PO SCH (09:21)
[2016-10-19] MEDS: DOCUSATE SODIUM 50 MG/SENNA 8.6 MG TAB PO SCH (09:21)
[2016-10-19] MEDS: PANTOPRAZOLE SOD 20 MG DELAYED RELEASE TAB PO SCH (09:21)
[2016-10-19] MEDS: ASPIRIN 81 MG CHEW TAB CHEW SCH (09:21)
[2016-10-19] MEDS: NICOTINE 21 MG/24 HR PATCH TD SCH (09:22)
[2016-10-19] MEDS: guaiFENesin E.R. 600 MG TAB PO SCH (09:22)
[2016-10-19] MEDS: LORATADINE 10 MG TAB PO SCH (09:22)
[2016-10-19] MEDS: amLODIPine BESYLATE 5 MG TAB PO SCH (09:22)
[2016-10-19] MEDS: SIMETHICONE 125 MG CHEWABLE TAB PO PRN (09:27)
[2016-10-19] MEDS: INSULIN DETEMIR 100 UNITS/ML VIAL SQ SCH (09:30)
[2016-10-19 09:41] VITALS: O2SAT 96
[2016-10-19] MEDS: RESP: ALBUTEROL 2.5 MG/3 ML NEB (PRN) INH (09:41)
[2016-10-19 12:00] VITALS: BP 169/81; PULSE 94; RESP 16; TEMP 98.3; O2SAT 93
[2016-10-19] MEDS ORDERED: IPRAAER INH (12:59)
[2016-10-19] MEDS ORDERED: LISI-515 PO (12:59)
[2016-10-19] MEDS ORDERED: DIGO0.25 PO (12:59)
[2016-10-19] MEDS ORDERED: PRED10PA PO (12:59)
[2016-10-19] MEDS ORDERED: CEFU1TAB20 PO (12:59)
[2016-10-19] MEDS ORDERED: ALBU6.7H INH (12:59)
--- NOTE | 2016-10-19 12:59 | HHI.DCPOC ---
Discharge Care Plan Diagnosis: (1) COPD, severe (2) Shortness of breath (3) Tobacco dependence, continuous (4) Diabetes mellitus (5) Tachycardia Goals to Promote Your Health * To prevent worsening of your condition and complications * To maintain your health at the optimal level Directions to Meet Your Goals Take your medications as prescribed Follow your dietary instruction Follow activity as directed Keep your appointments as scheduled Take your immunizations and boosters as scheduled If your symptoms worsen call your PCP, if no PCP go to Urgent Care Center or Emergency Room Smoking is Dangerous to Your Health. Avoid second hand smoke Call the 24-hour hour crisis hotline for domestic abuse at Catrachita Key MD Oct 19, 2016 12:59
--- NOTE | 2016-10-19 13:00 | HHI.DS ---
Discharge Summary Admission Date Oct 14, 2016 at 17:41 Discharge Date: Oct 19, 2016 Admitting Diagnosis COPD exacerbation (1) COPD, severe ICD Code: J44.9 - Severe chronic obstructive pulmonary disease Status: Acute (2) Shortness of breath ICD Code: R06.02 - Shortness of breath Status: Acute (3) Tobacco dependence, continuous Status: Chronic (4) Mixed hyperlipidemia Status: Chronic (5) Benign hypertension Status: Chronic (6) COPD exacerbation ICD Code: J44.1 - Chronic obstructive pulmonary disease with (acute) exacerbation Status: Acute (7) Acute respiratory failure ICD Code: J96.00 - Acute respiratory failure, unspecified whether with hypoxia or hypercapnia Status: Acute (8) Afib ICD Code: I48.91 - Unspecified atrial fibrillation Status: Chronic (9) Diabetes mellitus ICD Code: E11.9 - Type 2 diabetes mellitus without complications Status: Chronic Procedures None Brief History - From Admission Patient is a 66-year-old female with history of COPD, tobaccoism, hypertension, diabetes, GERD, A. fib, presents to emergency room complaints of COPD exacerbation. She reports that since yesterday, she has been feeling short of breath, that she has had a productive cough. Patient reports that she has been wheezing, reports that nothing is making her symptoms better or worse. Patient denies chest pain at this time. Reports that she is a smoker but has been cutting down on the amount of cigarettes she smokes. Patient is still actively smoking. Has not quit smoking yet. CBC/BMP: 10/18/16 0720 10/18/16 0720 Significant Findings Laboratory Tests Test 10/17/16 08:10 10/18/16 07:20 White Blood Count 18.3 TH/MM3 (4.0-11.0) 13.7 TH/MM3 (4.0-11.0) Red Cell Distribution Width 17.4 % (11.6-17.2) 17.7 % (11.6-17.2) Neutrophils (%) (Auto) 94.5 % (16.0-70.0) Lymphocytes (%) (Auto) 2.4 % (9.0-44.0) Neutrophils # (Auto) 17.3 TH/MM3 (1.8-7.7) Lymphocytes # (Auto) 0.4 TH/MM3 (1.0-4.8) Digoxin Level 0.3 NG/ML (0.8-2.0) Mean Corpuscular Hemoglobin Concent 30.7 % (32.0-36.0) Neutrophils % (Manual) 89 % (16-70) Neutrophils # (Manual) 12.2 TH/MM3 (1.8-7.7) Random Glucose 158 MG/DL (74-106) Calcium Level 8.3 MG/DL (8.5-10.1) Sodium Level 133 MEQ/L (136-145) Imaging Last Impressions Chest X-Ray 10/14/16 1456 Signed Impressions: Service Date/Time: Monday, October 14, 2016 15:11 - CONCLUSION: No acute disease. Alex Cosby Jr., MD PE at Discharge GENERAL: Elderly female in no apparent distress. CARDIOVASCULAR: Rate of around 110 and irregular rhythm without murmurs, gallops , or rubs. RESPIRATORY: Good respiratory efforts. Diminished breath sounds bilaterally. Faint expiratory wheezing. GASTROINTESTINAL: Abdomen soft, non-tender, non-distended. Normal active bowel sounds MUSCULOSKELETAL: Extremities without cyanosis, or edema. NEURO: Alert & Oriented x4 to person, place, time, situation. Moves all ext x4 PSYCH: Appropriate mood and affect. Pt update on day of discharge Reports feeling much better. Ready to go home. Hospital Course 66-year-old female for COPD exacerbation. Evaluation and treatment course detailed below: 1. COPD exacerbation: Patient treated with IV steroids and transitioned to oral steroids. She was treated with supplemental oxygen, bronchodilators, antibiotics. 2. Tobacco abuse: Counselled to quit. 3. Diabetes mellitus: accuchecks and cover with sliding scale insulin. 4. Hypertension: Continue lisinopril. Amlodipine continued. 5. Hyperlipidemia: Continue home medications. 6. Atrial fibrillation: Rate were uncontrolled. Medications were adjusted. Pt Condition on Discharge: Good Discharge Disposition: Discharge Home Discharge Time: <= 30 minutes Discharge Instructions DIET: Follow Instructions for: Heart Healthy Diet Activities you can perform: Regular-No Restrictions Changed Medications: Digoxin (Digoxin) 0.25 Mg Tab 0.25 MG PO DAILY for Regulate Heart Beat, #30 TAB 0 Refills (Changed from: Digoxin 0.125 Mg Tab 0.125 Mg PO DAILY Regulate Heart Beat #30 TAB Ref 0) Continued Medications: Albuterol 18 GM Inh (Ventolin Hfa 18 GM Inh) 90 Mcg/Act Aer 2 PUFF INH Q4H PRN for SHORTNESS OF BREATH, #1 INHALER 0 Refills Albuterol 6.7 GM Inh (Proventil Hfa 6.7 GM Inh) 90 Mcg/Act Aer 2 PUFF INH Q6H PRN for SHORTNESS OF BREATH, #1 INHALER 0 Refills (This prescription has been renewed) Aspirin (Aspirin Low Dose) 81 Mg Chew 81 MG CHEW DAILY, TAB 0 Refills Benzonatate (Tessalon Perles) 100 Mg Cap 100 MG PO TID PRN for COUGH, #20 CAP Cefuroxime (Cefuroxime) 500 Mg Tab 500 MG PO BID for Infection, #14 TAB 0 Refills (This prescription has been renewed) Fexofenadine (Pretty Allergy) 60 Mg Tab 60 MG PO BID for Allergy Management, #60 TAB 0 Refills Fluticasone Nasal [place] (Flonase Nasal [place]) 50 Mcg/Act [place] 100 MCG EACH NARE BID for Allergies, #1 BOTTLE 0 Refills Insulin Glargine Inj (Lantus Inj) 1,000 Unit/10 Ml Vial 14 UNITS SQ DAILY for Blood Sugar Management, VIAL 0 Refills Ipratropium Neb (Ipratropium Neb) 0.5 Mg/2.5 Ml Amp 0.5 MG NEB Q6HR NEB PRN for SHORTNESS OF BREATH, #120 NEBULE 0 Refills Ipratropium-Albuterol Inh (Combivent Respimat Inh) 20-[address] Half-[address]/Act Aero 1 PUFF INH QID for Asthma Management, #1 INHALER 0 Refills (This prescription has been renewed) Lisinopril (Lisinopril) 20 Mg Tab 20 MG PO DAILY, #30 TAB 0 Refills (This prescription has been renewed) Melatonin (Melatonin) 10 Mg Tab 10 MG PO HS PRN for SLEEP, #15 TAB 0 Refills Nicotine (Eq Nicotine) 14 Mg/24 Hr Dis 1 PATCH T-DERMAL DAILY for smoking cessation , #30 PATCH Pantoprazole (Protonix) 20 Mg Tab 20 MG PO DAILY for Reflux, #30 TAB 0 Refills Prednisone (21) 10 mg tab Dose Pack (Prednisone (21) 10 mg tab Dose Pack) 10 Mg Pack 10 MG PO DIRECTED for Inflammation, #1 DSPK 0 Refills (This prescription has been renewed) Simvastatin (Simvastatin) 20 Mg Tab 20 MG PO BID for Cholesterol Management, #30 TAB 0 Refills Discontinued Medications: Diltiazem (Cardizem) 120 Mg Tab 240 MG PO DAILY for Angina, #120 TAB 0 Refills Fluticasone-Salmeterol Inh (Advair Diskus Inh) 100-50 Mcg/Blist Aer 1 PUFF INH BID, #1 INHALER 0 Refills Rinse mouth after use. Catrachita Key MD Oct 19, 2016 12:59
== END 2016-10-19 14:52 | disposition home or self-care (01) | DRG 190 ==
LOC: NEPC 14:13 → NEDA 17:30 → OBSVTOIN 17:41 → N04A 20:35
PROVIDERS: ADMIT Family Medicine; ATTEND Family Medicine
DX: J44.1 Chronic obstructive pulmonary disease with (acute) exacerbation (principal); J96.00 Acute respiratory failure, unspecified whether with hypoxia or hypercapnia; I48.91 Unspecified atrial fibrillation; E78.2 Mixed hyperlipidemia; E11.9 Type 2 diabetes mellitus without complications; I10 Essential (primary) hypertension; F17.210 Nicotine dependence, cigarettes, uncomplicated; M19.90 Unspecified osteoarthritis, unspecified site; Z79.82 Long term (current) use of aspirin; Z79.4 Long term (current) use of insulin; Z96.642 Presence of left artificial hip joint; I25.10 Atherosclerotic heart disease of native coronary artery without angina pectoris
CPT/HCPCS: 36600; 71010; 80048; 80053; 80162; 81001; 82550; 82552; 82805; 82948; 83036; 83735; 83880; 84100; 84439; 84443; 84484; 85007; 85025; 85027; 85610; 85730; 87040; 93005; 94150; 94640; 94664; 96360; J0360; J0456; J0696; J1650; J1815; J2060; J2930; J3475; J7030; J7050; J7613

== ENCOUNTER 2017-02-02 17:16 | Observation (INO) | payer OTHER ==
[~2017-02-02] VITALS: Ht 157.5 cm; Wt 44.9 kg
[~2017-02-02 17:16] MED LIST changes: -ADVA100A INH; -ASPI81CH37 CHEW; +ASPI81CH6 CHEW; -CARD120T4 PO; +DIGO0.25 PO
[2017-02-02 17:18] VITALS: BP 181/86; PULSE 115; RESP 20; TEMP 98.1; O2SAT 91
[2017-02-02 17:29] VITALS: BP 176/84; PULSE 106; RESP 22; O2SAT 94
[2017-02-02] MEDS ORDERED: SIMV20TA PO (17:38)
[2017-02-02] MEDS ORDERED: UMEC1AER INH (17:38)
[2017-02-02] MEDS ORDERED: LANTUS2P SQ (17:38)
--- NOTE | 2017-02-02 17:52 | PD ---
HPI Chief Complaint: Respiratory Symptoms Time Seen by Provider: 17:43 Travel History International Travel<30 days: No Contact w/Intl Traveler<30days: No Traveled to known affect area: No History of Present Illness HPI 66 years old female complains of coughing congestion shortness of breath and wheezing. Patient has history COPD. Patient has been using nebulizer treatment at home every 4 hours. Patient states the cough is mostly dry cough occasionally productive. Patient states that the coughing started 2 days ago. Patient denies any chest pain. Patient denies abdominal pain. Patient denies any nausea vomiting diarrhea. Patient denies any fever chills. PFSH Past Medical History Hx Anticoagulant Therapy: Yes (aspirin) Arthritis: Yes (Greater than 2 years) Asthma: No Autoimmune Disease: No Blood Disorders: No Anxiety: No Depression: No Heart Rhythm Problems: No Cancer: No Cardiovascular Problems: Yes (HTN, HYPERCHOLESTEROLIMIA, A-FIB) High Cholesterol: No Chemotherapy: No Chest Pain: No Congestive Heart Failure: No COPD: Yes Cerebrovascular Accident: No Coronary Artery Disease: No Diabetes: Yes Patient Takes Glucophage: No Diminished Hearing: No Endocrine: No Gastrointestinal Disorders: Yes (acid reflux, hyperacidity) GERD: Yes Genitourinary: No Headaches: Yes Hiatal Hernia: No Hypertension: Yes Immune Disorder: No Implanted Vascular Access Dvce: Yes Kidney Stones: No Musculoskeletal: No Neurologic: No Psychiatric: No Reproductive: No Respiratory: Yes (COPD) Immunizations Current: No Migraines: No Pneumonia: Yes Radiation Therapy: No Renal Failure: No Seizures: No Sickle Cell Disease: No Sleep Apnea: No Thyroid Disease: No Ulcer: No LMP: na Menopausal: Yes : 3 Para: 3 Miscarriage: 0 : 0 Past Surgical History Abdominal Surgery: No AICD: No Arteriovenous Shunt: No Body Medical Devices: LEFT HIP REPLACEMENT Cardiac Surgery: No Section: Yes Ear Surgery: No Endocrine Surgery: No Eye Surgery: No Genitourinary Surgery: No Gynecologic Surgery: No Hysterectomy: Yes Insulin Pump: No Joint Replacement: Yes (LEFT HIP REPLACEMENT) Oral Surgery: No Pacemaker: No Thoracic Surgery: No Other Surgery: Yes (Left Hip placement) Family History Family Hypercholesterolemia: Yes Social History Alcohol Use: Yes (OCC) Tobacco Use: Yes (A FEW A DAY) Substance Use: No Allergies-Medications (Allergen,Severity, Reaction): Coded Allergies: hydrochlorothiazide (Verified Adverse Reaction, Mild, Nausea and Malaise, 02/02/17) Pt does not want to take Reported Meds & Prescriptions Reported Meds & Active Scripts Active Digoxin 0.25 Mg Tab 0.25 Mg PO DAILY Lisinopril 20 Mg Tab 20 Mg PO DAILY Combivent Respimat Inh (Ipratropium-Albuterol Inh) 20-100 Group Home/Act Aero 1 Puff INH QID Proventil Hfa 6.7 GM Inh (Albuterol Sulfate) 90 Mcg/Act Aer 2 Puff INH Q6H PRN Flonase Nasal [place] (Fluticasone Nasal [place]) 50 Mcg/Act [place] 100 Mcg EACH NARE BID Pretty Allergy (Fexofenadine HCl) 60 Mg Tab 60 Mg PO BID Tessalon Perles (Benzonatate) 100 Mg Cap 100 Mg PO TID PRN Ventolin Hfa 18 GM Inh (Albuterol Sulfate) 90 Mcg/Act Aer 2 Puff INH Q4H PRN Melatonin 10 Mg Tab 10 Mg PO HS PRN Ipratropium Neb (Ipratropium [place]) 0.5 Mg/2.5 Ml Amp 0.5 Mg NEB Q6HR NEB PRN Reported Anoro Ellipta Inh (Umeclidinium/Vilanterol) 62.5-25 Mcg/Act Aero 1 Puff INH DAILY Simvastatin 20 Mg Tab 20 Mg PO DAILY Lantus Inj (Insulin Glargine) 1,000 Unit/10 Ml Vial 19 Units SQ HS Protonix (Pantoprazole Sodium) 20 Mg Tab 20 Mg PO DAILY Aspirin Low Dose (Aspirin) 81 Mg Chew 81 Mg CHEW DAILY Review of Systems General / Constitutional: No: Fever Eyes: No: Visual changes HENT: No: Headaches Cardiovascular: No: Chest Pain or Discomfort Respiratory: Positive: Cough, Shortness of Breath, Wheezing Gastrointestinal: No: Abdominal Pain Genitourinary: No: Dysuria Musculoskeletal: No: Pain Skin: No Rash Neurologic: No: Weakness Psychiatric: No: Depression Endocrine: No: Polydipsia Hematologic/Lymphatic: No: Easy Bruising Physical Exam Narrative GENERAL: Well-nourished, well-developed patient. SKIN: Focused skin assessment warm/dry. HEAD: Normocephalic. EYES: No scleral icterus. No injection or drainage. NECK: Supple, trachea midline. No JVD or lymphadenopathy. CARDIOVASCULAR: Regular rate and rhythm without murmurs, gallops, or rubs. RESPIRATORY: Breath sounds equal bilaterally. No accessory muscle use. Patient has moderate expiratory wheezes bilaterally. Mild rhonchi at the bases. GASTROINTESTINAL: Abdomen soft, non-tender, nondistended. MUSCULOSKELETAL: No cyanosis, or edema. BACK: Nontender without obvious deformity. No CVA tenderness. Data Data Last Documented VS Vital Signs Date Time Temp Pulse Resp B/P (MAP) Pulse Ox O2 Delivery O2 Flow Rate FiO2 02/02/17 17:29 106 22 176/84 (114) 94 Room Air 02/02/17 17:18 98.1 Orders Orders Complete Blood Count With Diff (02/02/17 17:49) Basic Metabolic Panel (Bmp) (02/02/17 17:49) Influenzae A/B Antigen (02/02/17 17:49) Iv Access Insert/Monitor (02/02/17 17:49) Ecg Monitoring (02/02/17 17:49) Oximetry (02/02/17 17:49) Oxygen Administration (02/02/17 17:49) Chest, Single Ap (02/02/17 17:49) Sodium Chloride 0.9% Flush (Ns Flush) (02/02/17 18:00) Methylprednisolone So Succ Inj (Solumedr (02/02/17 18:00) Albuterol-Ipratropium Neb (Duoneb Neb) (02/02/17 18:00) Labs Laboratory Tests Test 02/02/17 17:55 White Blood Count 9.5 TH/MM3 Red Blood Count 4.24 MIL/MM3 Hemoglobin 11.9 GM/DL Hematocrit 35.9 % Mean Corpuscular Volume 84.7 FL Mean Corpuscular Hemoglobin 28.1 PG Mean Corpuscular Hemoglobin Concent 33.2 % Red Cell Distribution Width 15.3 % Platelet Count 326 TH/MM3 Mean Platelet Volume 9.9 FL Neutrophils (%) (Auto) 63.0 % Lymphocytes (%) (Auto) 17.7 % Monocytes (%) (Auto) 8.2 % Eosinophils (%) (Auto) 10.5 % Basophils (%) (Auto) 0.6 % Neutrophils # (Auto) 6.0 TH/MM3 Lymphocytes # (Auto) 1.7 TH/MM3 Monocytes # (Auto) 0.8 TH/MM3 Eosinophils # (Auto) 1.0 TH/MM3 Basophils # (Auto) 0.1 TH/MM3 CBC Comment DIFF FINAL Differential Comment Blood Urea Nitrogen 6 MG/DL Creatinine 0.66 MG/DL Random Glucose 79 MG/DL Calcium Level 8.9 MG/DL Sodium Level 139 MEQ/L Potassium Level 5.0 MEQ/L Chloride Level 105 MEQ/L Carbon Dioxide Level 29.2 MEQ/L Anion Gap 5 MEQ/L Estimat Glomerular Filtration Rate 108 ML/MIN MDM Medical Decision Making Medical Screen Exam Complete: Yes Emergency Medical Condition: Yes Interpretation(s) Last Impressions Chest X-Ray 02/02/17 3685 Signed Impressions: Service Date/Time: January 18:25 - CONCLUSION: The lungs are clear. Alex Powell MD 1844 PM. CBC within normal limit. BMP within normal limit. Differential Diagnosis Differential diagnosis including acute exacerbation COPD, bronchitis, pneumonia. Narrative Course 66 years old female with coughing wheezing congestion and shortness of breath. History of COPD. Solu-Medrol 125 mg IV. Albuterol with Atrovent unit dose treatment 3. Rocephin 1 g IV. Zithromax 500 mg IV. Diagnosis Primary Impression: COPD with acute exacerbation Admitting Information Admitting Physician Requests: Admit Lalito Martines MD Feb 02, 2017 17:52
[2017-02-02] MEDS: RESP: ALBUTEROL 2.5 MG/IPRATROPIUM 0.5 MG NEB (SCH) INH (17:57)
[2017-02-02] MEDS ORDERED: methylPREDNISolone SOD SUCC 125 MG/2 ML VIAL IV PUSH ONE (18:00)
[2017-02-02] MEDS ORDERED: SODIUM CHLORIDE 0.9% FLUSH 10 ML FLUSH IVF PRN (18:00)
[2017-02-02 18:12] LABS: BASOPHIL # 0.1 TH/MM3 (0-0.2); BASOPHIL % 0.6 % (0.0-2.0); EOSINOPHIL % 10.5 % (0.0-4.0); HEMATOCRIT 35.9 % (35.0-46.0); HEMOGLOBIN 11.9 GM/DL (11.6-15.3); LYMPH % 17.7 % (9.0-44.0); LYMPHOCYTE # 1.7 TH/MM3 (1.0-4.8); MEAN CELL VOLUME 84.7 FL (80.0-100.0); MEAN CORPUSCULAR HEMOGLOBIN 28.1 PG (27.0-34.0); MEAN CORPUSCULAR HGB CONC 33.2 % (32.0-36.0); MEAN PLATELET VOLUME 9.9 FL (7.0-11.0); MONO % 8.2 % (0.0-8.0); MONOCYTE # 0.8 TH/MM3 (0-0.9); PLATELET COUNT 326 TH/MM3 (150-450); RED BLOOD COUNT 4.24 MIL/MM3 (4.00-5.30); RED CELL DISTRIBUTION WIDTH 15.3 % (11.6-17.2); WHITE BLOOD COUNT 9.5 TH/MM3 (4.0-11.0)
--- NOTE | 2017-02-02 18:35 | RADRPT ---
EXAM DATE/TIME: 02/02/2017 18:25 [facility] COMPARISON: CHEST SINGLE AP, October 14, 2016, 15:11. INDICATIONS : Short of breath. MEDICAL HISTORY : Chronic obstructive pulmonary disease. Hypertension SURGICAL HISTORY : None. ENCOUNTER: Initial ACUITY: 1 day PAIN SCORE: 0/10 LOCATION: Bilateral chest FINDINGS: A single view of the chest demonstrates the lungs to be symmetrically aerated without evidence of mas s, infiltrate or effusion. No evidence of pneumothorax. The cardiomediastinal contours are unremark able. Osseous structures are intact. CONCLUSION: The lungs are clear. Alex Powell MD on February 02, 2017 at 18:33 Board Certified Radiologist. This report was verified electronically.
[2017-02-02 18:38] LABS: BICARBONATE 29.2 MEQ/L (21.0-32.0); CALCIUM 8.9 MG/DL (8.5-10.1); CREATININE 0.66 MG/DL (0.50-1.00)
[2017-02-02] MEDS ORDERED: cefTRIAXone INJ 1,000 MG in SODIUM CHLORIDE 0.9% INJ 100 ML IV ONE (19:00)
[2017-02-02] MEDS ORDERED: AZITHROMYCIN INJ 500 MG in SODIUM CHLOR 0.9% 250 ML INJ 250 ML IV ONE (19:00)
--- NOTE | 2017-02-02 19:13 | HHI.HP ---
[facility] [place] Unknown Admission Diagnosis acute exacerbation COPD Diagnoses: (1) COPD (chronic obstructive pulmonary disease) Diagnosis: Principal (2) HTN (hypertension) Diagnosis: Principal (3) A-fib Diagnosis: Principal (4) DM (diabetes mellitus) Diagnosis: Principal (5) Tobacco abuse Diagnosis: Principal Travel History International Travel<30 Days: No Contact w/Intl Traveler <30 Da: No Traveled to Known Affected Are: No History of Present Illness A 66-year-old female with a PMH of HTN, Hyperlipidemia, A. fib, DM, COPD and Tobacco Abuse who presented to the ER with complaints of SOB in addition to cough and wheezing x2 days. Has been using home Nebulizer treatments without improvement. Denies fever, chills, chest pain or sick contacts. On arrival, BP 181/86, HR 1:15, O2 sat 91% on RA, Afebrile. CBC unremarkable. Chemistry essentially unremarkable. CXR with no acute findings. S/p Solu-Medrol/DuoNeb in ER w/ some relief. Review of Systems Except as stated in HPI: all other systems reviewed are Neg ROS: 14 point review of systems otherwise negative. Past Family Social History Past Medical History PMH: HTN, Hyperlipidemia, A. fib, DM, COPD and Tobacco Abuse Past Surgical History PAST SURGICAL HISTORY: Left Hip Replacement, , Hysterectomy Allergies: Coded Allergies: hydrochlorothiazide (Verified Adverse Reaction, Mild, Nausea and Malaise, 02/02/17) Pt does not want to take Family History PAST FAMILY HISTORY: Reviewed, positive for DM and Hypercholesterolemia Social History PAST SOCIAL HISTORY: Occasional alcohol. Positive for tobacco. Negative for drugs. Physical Exam Vital Signs Vital Signs Date Time Temp Pulse Resp B/P (MAP) Pulse Ox O2 Delivery O2 Flow Rate FiO2 02/02/17 17:29 106 22 176/84 (114) 94 Room Air 02/02/17 17:18 98.1 115 20 181/86 (117) 91 Room Air Physical Exam PE: GENERAL: Pleasant middle-aged white female in no acute distress. HEENT: PERRLA, EOMI. No scleral icterus or conjunctival pallor. No lid lag or facial droop. CARDIOVASCULAR: Regular rate and rhythm. No obvious murmurs to auscultation. No chest tenderness to palpation. RESPIRATORY: No obvious rhonchi. Occasional wheezing, otherwise clear to auscultation. Breath sounds equal bilaterally. GASTROINTESTINAL: Abdomen soft, non-tender, nondistended. BS normal. MUSCULOSKELETAL: Extremities without clubbing, cyanosis, or edema. No obvious deformities. NEUROLOGICAL: Awake, alert and oriented x4. No focal neurologic deficits. Moving both upper and lower extremities spontaneously. Laboratory Laboratory Tests Test 02/02/17 17:55 White Blood Count 9.5 Red Blood Count 4.24 Hemoglobin 11.9 Hematocrit 35.9 Mean Corpuscular Volume 84.7 Mean Corpuscular Hemoglobin 28.1 Mean Corpuscular Hemoglobin Concent 33.2 Red Cell Distribution Width 15.3 Platelet Count 326 Mean Platelet Volume 9.9 Neutrophils (%) (Auto) 63.0 Lymphocytes (%) (Auto) 17.7 Monocytes (%) (Auto) 8.2 Eosinophils (%) (Auto) 10.5 Basophils (%) (Auto) 0.6 Neutrophils # (Auto) 6.0 Lymphocytes # (Auto) 1.7 Monocytes # (Auto) 0.8 Eosinophils # (Auto) 1.0 Basophils # (Auto) 0.1 CBC Comment DIFF FINAL Differential Comment Blood Urea Nitrogen 6 Creatinine 0.66 Random Glucose 79 Calcium Level 8.9 Sodium Level 139 Potassium Level 5.0 Chloride Level 105 Carbon Dioxide Level 29.2 Anion Gap 5 Estimat Glomerular Filtration Rate 108 Date/Time Source Procedure Growth Status 02/02/17 18:25 Nasal Washing Influenza Types A,B Antigen (JERMAIN) - Final NEGATIVE FOR FLU A AND B ANTIGEN.... Complete Result Diagram: 02/02/17175402/02/171754 Caprini VTE Risk Assessment Caprini VTE Risk Assessment: No/Low Risk (score <= 1) Caprini Risk Assessment Model Point Value = 1 Point Value = 2 Point Value = 3 Point Value = 5 Age 41-60 Minor surgery BMI > 25 kg/m2 Swollen legs Varicose veins or History of unexplained or recurrent spontaneous Oral contraceptives or hormone replacement Sepsis (< 1 month) Serious lung disease, including pneumonia (< 1 month) Abnormal pulmonary function Acute myocardial infarction Congestive heart failure (< 1 month) History of inflammatory bowel disease Medical patient at bed rest Age 61-74 Arthroscopic surgery Major open surgery (> 45 min) Laparoscopic surgery (> 45 min) Malignancy Confined to bed (> 72 hours) Immobilizing plaster cast Central venous access Age >= 75 History of VTE Family history of VTE Factor V Leiden Prothrombin 25601A Lupus anticoagulant Anticardiolipin antibodies Elevated serum homocysteine Heparin-induced thrombocytopenia Other congenital or acquired thrombophilia Stroke (< 1 month) Elective arthroplasty Hip, pelvis, or leg fracture Acute spinal cord injury (< 1 month) Prophylaxis Regimen Total Risk Factor Score Risk Level Prophylaxis Regimen 0-1 Low Early ambulation 2 Moderate Order ONE of the following: *Sequential Compression Device (SCD) *Heparin 5000 units SQ BID 3-4 Higher Order ONE of the following medications: *Heparin 5000 units SQ TID *Enoxaparin/Lovenox 40 mg SQ daily (WT < 150 kg, CrCl > 30 mL/min) *Enoxaparin/Lovenox 30 mg SQ daily (WT < 150 kg, CrCl > 10-29 mL/min) *Enoxaparin/Lovenox 30 mg SQ BID (WT < 150 kg, CrCl > 30 mL/min) AND/OR *Sequential Compression Device (SCD) 5 or more Highest Order ONE of the following medications: *Heparin 5000 units SQ TID (Preferred with Epidurals) *Enoxaparin/Lovenox 40 mg SQ daily (WT < 150 kg, CrCl > 30 mL/min) *Enoxaparin/Lovenox 30 mg SQ daily (WT < 150 kg, CrCl > 10-29 mL/min) *Enoxaparin/Lovenox 30 mg SQ BID (WT < 150 kg, CrCl > 30 mL/min) AND *Sequential Compression Device (SCD) Assessment and Plan Problem List: (1) COPD (chronic obstructive pulmonary disease) ICD Code: J44.9 - Chronic obstructive pulmonary disease, unspecified Status: Chronic (2) HTN (hypertension) ICD Code: I10 - Essential (primary) hypertension (3) A-fib ICD Code: I48.91 - Unspecified atrial fibrillation (4) DM (diabetes mellitus) ICD Code: E11.9 - Type 2 diabetes mellitus without complications (5) Tobacco abuse ICD Code: Z72.0 - Tobacco use Assessment and Plan A/P: 1. COPD: Chronic Respiratory Failure w/ Acute Exacerbation. Moderate-Severe, x2 days, unresponsive to home nebulizer treatment, O2 sat 91% on RA. +wheezing on exam. S/p Solu-Medrol/DuoNeb in ER. Continue Solu-Medrol, DuoNeb q4h and q2h prn, Symbicort, Mucinex. CXR w/ no acute findings, images reviewed by me. 2. HTN: BP 180's on arrival, likely compounded by respiratory distress. Will monitor BP, antihypertensives as needed. 3. A-fib: Chronic. On Digoxin/ASA at home, will resume home medications. 4. DM: Sliding scale w/ Accu-Cheks. Resume home Insulin. 5. Tobacco Abuse: Pt counselled. NicoDerm prn if needed. 6. DVT Prophylaxis: Heparin sq 7. Social work for d/c planning as needed. 8. Case discussed w/ ER physician at length. Lily Simmons MD Feb 02, 2017 19:13
[2017-02-02] MEDS ORDERED: LACTULOSE SYRUP 20 GM/30 ML CUP PO PRN (19:15)
[2017-02-02] MEDS ORDERED: ONDANSETRON HCL 4 MG/2 ML VIAL IVP PRN (19:15)
[2017-02-02] MEDS ORDERED: SODIUM CHLORIDE 0.9% FLUSH 10 ML FLUSH IV FLUSH PRN (19:15)
[2017-02-02] MEDS ORDERED: RESP: ALBUTEROL 2.5 MG/IPRATROPIUM 0.5 MG NEB (PRN) NEB (19:15)
[2017-02-02] MEDS ORDERED: GLUCAGON 1 MG/ML VIAL OTHER PRN (19:15)
[2017-02-02] MEDS ORDERED: MAGNESIUM HYDROXIDE SUSP 30 ML CUP PO PRN (19:15)
[2017-02-02] MEDS ORDERED: BISACODYL 10 MG SUPP RECTAL PRN (19:15)
[2017-02-02] MEDS ORDERED: ACETAMINOPHEN/HYDROcodone 325 MG/10 MG TAB PO PRN (19:15)
[2017-02-02] MEDS ORDERED: ACETAMINOPHEN 325 MG TAB PO PRN (19:15)
[2017-02-02] MEDS ORDERED: SENNOSIDES 8.6 MG TAB PO PRN (19:15)
[2017-02-02] MEDS ORDERED: DEXTROSE 50% IN WATER 50 ML VIAL(D50) IV PUSH PRN (19:15)
[2017-02-02] MEDS ORDERED: ACETAMINOPHEN/HYDROcodone 325 MG/5 MG TAB PO PRN (19:15)
[2017-02-02] MEDS: RESP: ALBUTEROL 2.5 MG/IPRATROPIUM 0.5 MG NEB (SCH) NEB (19:32)
[2017-02-02 19:34] VITALS: O2SAT 93
[2017-02-02 20:20] VITALS: BP 181/79; PULSE 144; RESP 18; TEMP 97.9; O2SAT 92
[2017-02-02 21:00] VITALS: PULSE 108
[2017-02-02] MEDS: INSULIN ASPART SUPPLEMENTAL SCALE SQ SCH (21:00)
[2017-02-02] MEDS: DOCUSATE SODIUM 50 MG/SENNA 8.6 MG TAB PO SCH (21:00)
[2017-02-02] MEDS ORDERED: MELATONIN 5 MG TAB PO PRN (21:00)
[2017-02-02] MEDS: SODIUM CHLORIDE 0.9% FLUSH 10 ML FLUSH IV FLUSH SCH (21:00)
[2017-02-02] MEDS ORDERED: INSULIN DETEMIR 100 UNITS/ML VIAL SQ SCH (21:00)
[2017-02-02] MEDS: guaiFENesin E.R. 600 MG TAB PO SCH (21:20)
[2017-02-02] MEDS: BUDESONIDE-FORMOTEROL 160/4.5 MCG INHALER INH SCH (22:10)
[2017-02-02] MEDS: FLUTICASONE PROPIONATE 50 MCG/ACT 16 GM NASAL SPRAY EACH NARE SCH (22:10)
[2017-02-02] MEDS: methylPREDNISolone SOD SUCC 40 MG/1 ML VIAL IV PUSH SCH (23:42)
[2017-02-03] VITALS: PULSE 109
[2017-02-03 00:20] VITALS: BP 149/65; PULSE 108; RESP 16; TEMP 97.7; O2SAT 94
[2017-02-03 04:00] VITALS: BP 162/74; PULSE 89; PULSE 91; RESP 16; TEMP 97.6; O2SAT 99
[2017-02-03] MEDS: methylPREDNISolone SOD SUCC 40 MG/1 ML VIAL IV PUSH SCH (05:46)
[2017-02-03] MEDS: SODIUM CHLORIDE 0.9% FLUSH 10 ML FLUSH IV FLUSH SCH (07:30)
[2017-02-03] MEDS: RESP: ALBUTEROL 2.5 MG/IPRATROPIUM 0.5 MG NEB (SCH) NEB ×2 (07:44→11:39)
[2017-02-03 07:45] VITALS: O2SAT 96
[2017-02-03] MEDS: INSULIN ASPART SUPPLEMENTAL SCALE SQ SCH ×2 (08:00→12:45)
[2017-02-03] MEDS ORDERED: hydrALAZINE HCL 20 MG/ML VIAL IV PUSH PRN (08:15)
[2017-02-03] MEDS: DOCUSATE SODIUM 50 MG/SENNA 8.6 MG TAB PO SCH (08:31)
[2017-02-03] MEDS: guaiFENesin E.R. 600 MG TAB PO SCH (08:31)
[2017-02-03] MEDS: FLUTICASONE PROPIONATE 50 MCG/ACT 16 GM NASAL SPRAY EACH NARE SCH (08:32)
[2017-02-03] MEDS: BUDESONIDE-FORMOTEROL 160/4.5 MCG INHALER INH SCH (08:32)
[2017-02-03 08:39] VITALS: BP 172/84; PULSE 104; RESP 17; TEMP 97.8; O2SAT 92
[2017-02-03] MEDS ORDERED: LISINOPRIL 20 MG TAB PO SCH (09:00)
[2017-02-03] MEDS ORDERED: ASPIRIN 81 MG CHEW TAB CHEW SCH (09:00)
[2017-02-03] MEDS ORDERED: INFLUENZA VIRUS VACCINE (QUADRIVALENT) 0.5 ML SYR IM ONE (09:00)
[2017-02-03] MEDS ORDERED: HEPARIN SODIUM - SQ 10,000 UNITS/ML VIAL SQ SCH (09:00)
[2017-02-03] MEDS ORDERED: PANTOPRAZOLE SOD 20 MG DELAYED RELEASE TAB PO SCH (09:00)
[2017-02-03] MEDS ORDERED: PRAVASTATIN SOD 40 MG TAB PO SCH (09:00)
[2017-02-03] MEDS ORDERED: DIGOXIN 0.25 MG TAB PO SCH (09:00)
--- NOTE | 2017-02-03 11:08 | HHI.PR ---
Subjective Remarks F/U COPD exac. Much better on RA ambulating hallway Dw RN Objective Vitals Vital Signs Date Time Temp Pulse Resp B/P (MAP) Pulse Ox O2 Delivery O2 Flow Rate FiO2 02/03/17 08:39 97.8 104 17 172/84 (113) 92 02/03/17 07:45 96 02/03/17 04:00 89 02/03/17 04:00 97.6 91 16 162/74 (103) 99 02/03/17 04:00 Room Air 02/03/17 00:20 97.7 108 16 149/65 (93) 94 02/03/17 00:00 Room Air 02/03/17 00:00 109 02/02/17 21:00 108 02/02/17 21:00 Room Air 02/02/17 20:20 97.9 144 18 181/79 (113) 92 02/02/17 19:34 93 21 02/02/17 17:29 106 22 176/84 (114) 94 Room Air 02/02/17 17:18 98.1 115 20 181/86 (117) 91 Room Air I/O 02/02/17 02/02/17 02/02/17 02/03/17 02/03/17 02/03/17 07:00 15:00 23:00 07:00 15:00 23:00 Intake Total 100 ml 580 ml Output Total 300 ml Balance 100 ml 280 ml Intake Oral 580 ml IV Total 100 ml Output Urine Total 300 ml # Bowel Movements 0 Result Diagram: 02/02/17 [id number]/02/171754 Imaging Last Impressions Chest X-Ray 02/02/17 174 Signed Impressions: Service Date/Time: January 18:25 - CONCLUSION: The lungs are clear. Alex Powell MD Objective Remarks GENERAL: Pleasant middle-aged white female in no acute distress. HEENT: PERRLA, EOMI. No scleral icterus or conjunctival pallor. No lid lag or facial droop. CARDIOVASCULAR: Regular rate and rhythm. No obvious murmurs to auscultation. No chest tenderness to palpation. RESPIRATORY: No obvious rhonchi. Clear to auscultation. Breath sounds equal bilaterally. GASTROINTESTINAL: Abdomen soft, non-tender, nondistended. BS normal. MUSCULOSKELETAL: Extremities without clubbing, cyanosis, or edema. No obvious deformities. NEUROLOGICAL: Awake, alert and oriented x4. No focal neurologic deficits. Moving both upper and lower extremities spontaneously. Procedures None A/P Problem List: (1) COPD (chronic obstructive pulmonary disease) ICD Code: J44.9 - Chronic obstructive pulmonary disease, unspecified Status: Chronic (2) HTN (hypertension) ICD Code: I10 - Essential (primary) hypertension (3) A-fib ICD Code: I48.91 - Unspecified atrial fibrillation (4) DM (diabetes mellitus) ICD Code: E11.9 - Type 2 diabetes mellitus without complications (5) Tobacco abuse ICD Code: Z72.0 - Tobacco use Assessment and Plan 1. COPD: Acute Exacerbation. Improved denies SOB on RA ambulating hallway. Yellow phlegm has acute Bronchitis start Doxycycline, switch to po steroids and ct nebs Increase activity 2. HTN: BP 180's on arrival, likely compounded by respiratory distress. Will monitor BP, antihypertensives as needed. Increase DIEGO 3. A-fib: Chronic. On Digoxin/ASA at home, will resume home medications. Sees Dr Barron 4. DM: Sliding scale w/ Accu-Cheks. Resume home Insulin. Stable 5. Tobacco Abuse: Pt counselled. NicoDerm prn if needed. 6. DVT Prophylaxis: Heparin sq Discharge Planning Discharge patient to home Condition on discharge: Improved Regular Diet as tolerated Ad Cesilia activity Rx written: Doxycycline and prednisone Follow-up with primary care physician and Pulmonary AbandJose corbett MD Feb 03, 2017 11:07
[2017-02-03 11:14] LABS: AUTOMATED NEUTROPHIL # 6.6 TH/MM3 (1.8-7.7); BASOPHIL % 0.3 % (0.0-2.0); HEMATOCRIT 35.4 % (35.0-46.0); HEMOGLOBIN 11.2 GM/DL (11.6-15.3); LYMPH % 6.5 % (9.0-44.0); LYMPHOCYTE # 0.5 TH/MM3 (1.0-4.8); MEAN CELL VOLUME 85.6 FL (80.0-100.0); MEAN CORPUSCULAR HGB CONC 31.5 % (32.0-36.0); MEAN PLATELET VOLUME 10.5 FL (7.0-11.0); MONO % 1.1 % (0.0-8.0); MONOCYTE # 0.1 TH/MM3 (0-0.9); NEUT % 92.1 % (16.0-70.0); PLATELET COUNT 340 TH/MM3 (150-450); RED BLOOD COUNT 4.14 MIL/MM3 (4.00-5.30); RED CELL DISTRIBUTION WIDTH 15.4 % (11.6-17.2); WHITE BLOOD COUNT 7.1 TH/MM3 (4.0-11.0)
[2017-02-03] MEDS ORDERED: Budeson-Formot 160-4.5 Mcg Inh INH (11:14)
[2017-02-03] MEDS ORDERED: DOXY100T PO (11:14)
[2017-02-03] MEDS ORDERED: LISI-515 PO (11:14)
[2017-02-03] MEDS ORDERED: PRED20 PO (11:14)
--- NOTE | 2017-02-03 11:15 | HHI.DCPOC ---
Discharge Care Plan Diagnosis: (1) COPD with acute exacerbation Your Health Problems Are: Difficulty with ADL Exercise Tolerance Goals to Promote Your Health * To prevent worsening of your condition and complications * To maintain your health at the optimal level Directions to Meet Your Goals Take your medications as prescribed Follow your dietary instruction Follow activity as directed Keep your appointments as scheduled Take your immunizations and boosters as scheduled If your symptoms worsen call your PCP, if no PCP go to Urgent Care Center or Emergency Room Smoking is Dangerous to Your Health. Avoid second hand smoke Call the 24-hour hour crisis hotline for domestic abuse at Jose Atkinson MD Feb 03, 2017 11:15
[2017-02-03 11:34] LABS: ALBUMIN 3.2 GM/DL (3.4-5.0); AST (GOT) 15 U/L (15-37); BICARBONATE 26.3 MEQ/L (21.0-32.0); BLOOD UREA NITROGEN 11 MG/DL (7-18); CALCIUM 8.8 MG/DL (8.5-10.1); CHLORIDE 102 MEQ/L (98-107); GLOMERULAR FILTRATION RATE 76 ML/MIN (>89); GLUCOSE,RANDOM 285 MG/DL (74-106); SODIUM (NA) 138 MEQ/L (136-145)
[2017-02-03 11:37] LABS: ALKALINE PHOSPHATASE 110 U/L (45-117); ALT (GPT) 19 U/L (10-53); TOTAL BILIRUBIN ADULT 0.3 MG/DL (0.2-1.0); TOTAL PROTEIN 7.1 GM/DL (6.4-8.2)
[2017-02-03 12:00] VITALS: BP 165/72; PULSE 110; RESP 20; TEMP 97.8; O2SAT 93
[2017-02-03] MEDS ORDERED: predniSONE 20 MG TAB PO SCH (12:00)
[2017-02-03] MEDS ORDERED: DOXYCYCLINE HYCLATE 100 MG TAB PO SCH (12:00)
[2017-02-04] MEDS ORDERED: LISINOPRIL 20 MG TAB PO SCH (09:00)
== END 2017-02-03 13:35 | disposition home or self-care (01) ==
LOC: NEPC 17:16 → UNDOADMOB 18:53 → INTOOBSV 18:53 → NEDA 18:53 → INTOOBSV 19:13 → N04B 20:15 → NEDA 20:15
PROVIDERS: ADMIT Internal Medicine; ATTEND Internal Medicine
DX: J44.1 Chronic obstructive pulmonary disease with (acute) exacerbation (principal); J44.0 Chronic obstructive pulmonary disease with (acute) lower respiratory infection; J20.9 Acute bronchitis, unspecified; I48.2 Chronic atrial fibrillation; I10 Essential (primary) hypertension; E78.00 Pure hypercholesterolemia, unspecified; E11.9 Type 2 diabetes mellitus without complications; K21.9 Gastro-esophageal reflux disease without esophagitis; M19.90 Unspecified osteoarthritis, unspecified site; F17.200 Nicotine dependence, unspecified, uncomplicated; Z79.899 Other long term (current) drug therapy; Z79.82 Long term (current) use of aspirin; Z79.4 Long term (current) use of insulin; Z23 Encounter for immunization
CPT/HCPCS: 71010; 80048; 80053; 82948; 85025; 87804; 94640; 94664; 96365; 96372; 96375; 96376; 99285; G0008; G0378; J0696; J1644; J1815; J2920; J2930; J7512; Q2038; 90471; 90686

== ENCOUNTER 2017-02-10 12:22 | Inpatient (IN) | payer OTHER, MEDICARE ==
[~2017-02-10] VITALS: Ht 162.6 cm; Wt 39.6 kg
[2017-02-10] VITALS (8 sets, daily range): BP systolic 122–197; BP diastolic 37–89; PULSE 104–135; RESP 20–28; TEMP 97.7–99.3; O2SAT 95–97
[~2017-02-10 12:22] MED LIST changes: +Budeson-Formot 160-4.5 Mcg Inh INH; -CEFU1TAB20 PO; +DOXY100T PO; -NICO14DI23 T-DERMAL; -PRED10PA PO; +PRED20 PO; -VENTAER INH
[2017-02-10] MEDS ORDERED: methylPREDNISolone SOD SUCC 125 MG/2 ML VIAL IV PUSH ONE (12:45)
--- NOTE | 2017-02-10 13:03 | PD ---
HPI Chief Complaint: Respiratory Distress Time Seen by Provider: 12:31 Travel History International Travel<30 days: No Contact w/Intl Traveler<30days: No Traveled to known affect area: No History of Present Illness HPI 66-year-old female that presents to the ED for evaluation of shortness of breath. Patient has a chronic history of COPD. She has been here before for exacerbations. She was last here a week ago. She was admitted for a couple days and released. Per patient she's been doing well until yesterday. She's been using her inhalers at home and duonebs with minimal relief. Patient was brought here by ambulance for evaluation. She took 2 nebulizers at home with minimal relief and ambulance gave her another one. Patient has no chest pain but states that she feels chest tightness. She does have a history of A. fib and takes medications for this. She denies any fevers chills or sweats but states that she's been having a cough and she has a grandson that is sick currently. Unclear as to which one. Patient denies any nausea or vomiting and abdominal pain. No urinary or bowel movement issues. She denies any chest pain but only tightness which she states is similar to her previous COPD exacerbations. She has had prior intubations but denies any recent intubations. She does have allergies to hydrochlorothiazide. PFSH Past Medical History Hx Anticoagulant Therapy: Yes (aspirin) Arthritis: Yes (Greater than 2 years) Asthma: No Autoimmune Disease: No Blood Disorders: No Anxiety: No Depression: No Heart Rhythm Problems: No Cancer: No Cardiovascular Problems: Yes (HTN, HYPERCHOLESTEROLIMIA, A-FIB) High Cholesterol: No Chemotherapy: No Chest Pain: No Congestive Heart Failure: No COPD: Yes Cerebrovascular Accident: Yes (afib) Coronary Artery Disease: No Diabetes: Yes Patient Takes Glucophage: No Diminished Hearing: No Endocrine: No Gastrointestinal Disorders: Yes (acid reflux, hyperacidity) GERD: Yes Genitourinary: No Headaches: Yes Hiatal Hernia: No Hypertension: Yes Immune Disorder: No Implanted Vascular Access Dvce: Yes Kidney Stones: No Musculoskeletal: No Neurologic: No Psychiatric: No Reproductive: No Respiratory: Yes (COPD) Immunizations Current: No Migraines: No Pneumonia: Yes Radiation Therapy: No Renal Failure: No Seizures: No Sickle Cell Disease: No Sleep Apnea: No Thyroid Disease: No Ulcer: No Influenza Vaccination: Yes Menopausal: Yes : 3 Para: 3 Miscarriage: 0 : 0 Past Surgical History Abdominal Surgery: No AICD: No Arteriovenous Shunt: No Body Medical Devices: LEFT HIP REPLACEMENT Cardiac Surgery: No Section: Yes Ear Surgery: No Endocrine Surgery: No Eye Surgery: No Genitourinary Surgery: No Gynecologic Surgery: No Hysterectomy: Yes Insulin Pump: No Joint Replacement: Yes (LEFT HIP REPLACEMENT) Oral Surgery: No Pacemaker: No Thoracic Surgery: No Other Surgery: Yes (left hand ligament repair) Family History Family Hypercholesterolemia: Yes Social History Alcohol Use: Yes (special occasions) Tobacco Use: No Substance Use: No Allergies-Medications (Allergen,Severity, Reaction): Coded Allergies: hydrochlorothiazide (Verified Adverse Reaction, Mild, Nausea and Malaise, 02/10/17) Pt does not want to take Reported Meds & Prescriptions Reported Meds & Active Scripts Active [Budeson-Formot 160-4.5 Mcg Inh] 60 PUFF Aero 2 Puff INH Q12HR Lisinopril 20 Mg Tab 40 Mg PO DAILY Doxycycline Hyclate 100 Mg Tab 100 Mg PO Q12HR Digoxin 0.25 Mg Tab 0.25 Mg PO DAILY Combivent Respimat Inh (Ipratropium-Albuterol Inh) 20-100 [facility]/Act Aero 1 Puff INH QID Proventil Hfa 6.7 GM Inh (Albuterol Sulfate) 90 Mcg/Act Aer 2 Puff INH Q6H PRN Flonase Nasal [place] (Fluticasone Nasal [place]) 50 Mcg/Act [place] 100 Mcg EACH NARE BID Pretty Allergy (Fexofenadine HCl) 60 Mg Tab 60 Mg PO BID Tessalon Perles (Benzonatate) 100 Mg Cap 100 Mg PO TID PRN Melatonin 10 Mg Tab 10 Mg PO HS PRN Ipratropium Neb (Ipratropium [place]) 0.5 Mg/2.5 Ml Amp 0.5 Mg NEB Q6HR NEB PRN Reported Simvastatin 20 Mg Tab 20 Mg PO DAILY Lantus Inj (Insulin Glargine) 1,000 Unit/10 Ml Vial 19 Units SQ DAILY Protonix (Pantoprazole Sodium) 20 Mg Tab 20 Mg PO DAILY Aspirin Low Dose (Aspirin) 81 Mg Chew 81 Mg CHEW DAILY Review of Systems Except as stated in HPI: all other systems reviewed are Neg Physical Exam Narrative GENERAL: SKIN: Warm and dry. HEAD: Atraumatic. Normocephalic. EYES: Pupils equal and round. No scleral icterus. No injection or drainage. ENT: No nasal bleeding or discharge. Mucous membranes pink and moist. Tongue is midline. No uvula deviation. NECK: Trachea midline. No JVD. CARDIOVASCULAR: Regular rate and rhythm. No murmurs, S3, S4. RESPIRATORY: No accessory muscle use. Wheezings heard in all lung grubbs in the lower lung grubbs. Breath sounds equal bilaterally. GASTROINTESTINAL: Abdomen soft, non-tender, nondistended. Hepatic and splenic margins not palpable. MUSCULOSKELETAL: Extremities without clubbing, cyanosis, or edema. No obvious deformities. Full range of motion of the upper and lower extremities bilaterally. 2+ pulses bilaterally. NEUROLOGICAL: Awake and alert. No obvious cranial nerve deficits. Motor grossly within normal limits. Five out of 5 muscle strength in the arms and legs. Normal speech. PSYCHIATRIC: Appropriate mood and affect; insight and judgment normal. Data Data Last Documented VS Vital Signs Date Time Temp Pulse Resp B/P (MAP) Pulse Ox O2 Delivery O2 Flow Rate FiO2 02/10/17 13:00 96 Nasal Cannula 2.00 02/10/17 12:52 155/70 (98) 02/10/17 12:36 99.3 135 27 Orders Orders Electrocardiogram (02/10/17 12:34) Complete Blood Count With Diff (02/10/17 12:34) Basic Metabolic Panel (Bmp) (02/10/17 12:34) Ckmb (Isoenzyme) Profile (02/10/17 12:34) Troponin I (02/10/17 12:34) Prothrombin Time / Inr (Pt) (02/10/17 12:34) Act Partial Throm Time (Ptt) (02/10/17 12:34) Blood Culture (02/10/17 12:34) Magnesium (Mg) (02/10/17 12:34) Digoxin (02/10/17 12:34) Thyroid Stimulating Hormone (02/10/17 12:34) Influenzae A/B Antigen (02/10/17 12:34) Chest, Single Ap (02/10/17 12:34) Iv Access Insert/Monitor (02/10/17 12:34) Ecg Monitoring (02/10/17 12:34) Oxygen Administration (02/10/17 12:34) Oximetry (02/10/17 12:34) Methylprednisolone So Succ Inj (Solumedr (02/10/17 12:45) Albuterol-Ipratropium Neb (Duoneb Neb) (02/10/17 12:45) CKMB (02/10/17 12:42) CKMB% (02/10/17 12:42) Ceftriaxone Inj (Rocephin Inj) (02/10/17 14:15) Azithromycin Inj (Zithromax Inj) (02/10/17 14:15) Admit Order (Ed Use Only) (02/10/17 15:04) Labs Laboratory Tests Test 02/10/17 12:42 02/10/17 14:00 White Blood Count 10.7 TH/MM3 Red Blood Count 4.62 MIL/MM3 Hemoglobin 12.3 GM/DL Hematocrit 39.3 % Mean Corpuscular Volume 85.0 FL Mean Corpuscular Hemoglobin 26.6 PG Mean Corpuscular Hemoglobin Concent 31.3 % Red Cell Distribution Width 15.8 % Platelet Count 264 TH/MM3 Mean Platelet Volume 10.0 FL Neutrophils (%) (Auto) 81.1 % Lymphocytes (%) (Auto) 7.4 % Monocytes (%) (Auto) 9.1 % Eosinophils (%) (Auto) 2.0 % Basophils (%) (Auto) 0.4 % Neutrophils # (Auto) 8.7 TH/MM3 Lymphocytes # (Auto) 0.8 TH/MM3 Monocytes # (Auto) 1.0 TH/MM3 Eosinophils # (Auto) 0.2 TH/MM3 Basophils # (Auto) 0.0 TH/MM3 CBC Comment DIFF FINAL Differential Comment Blood Urea Nitrogen 12 MG/DL Creatinine 0.73 MG/DL Random Glucose 189 MG/DL Calcium Level 8.6 MG/DL Magnesium Level 2.0 MG/DL Sodium Level 134 MEQ/L Potassium Level 4.0 MEQ/L Chloride Level 95 MEQ/L Carbon Dioxide Level 34.1 MEQ/L Anion Gap 5 MEQ/L Estimat Glomerular Filtration Rate 97 ML/MIN Total Creatine Kinase 104 U/L Creatine Kinase MB 2.5 NG/ML Troponin I LESS THAN 0.02 NG/ML Thyroid Stimulating Hormone 3rd Gen 1.120 uIU/ML Digoxin Level 0.8 NG/ML Prothrombin Time 9.7 SEC Prothromb Time International Ratio 1.0 RATIO Activated Partial Thromboplast Time 24.7 SEC MDM Medical Decision Making Medical Screen Exam Complete: Yes Emergency Medical Condition: Yes Medical Record Reviewed: Yes Interpretation(s) CBC & BMP Diagram 02/10/17 12:42 Calcium Level 8.6, Magnesium Level 2.0 Last Impressions Chest X-Ray 02/10/17 1234 Signed Impressions: Service Date/Time: Friday, February 10, 2017 13:00 - CONCLUSION: 1. No acute abnormality or significant interval change. Wilton Ruiz MD troponin and CKMB negative digoxin WNL Differential Diagnosis COPD exacerbation versus chest pain versus pneumonia versus COPD versus atrial fibrillation RVR Narrative Course 66-year-old female that presents to the ED for evaluation of shortness of breath. Patient was properly examined and was found to have signs and symptoms distant and concerning for COPD exacerbation. Labs and imaging were ordered. Labs and imaging showed what appears to be no sign of acute disease. Patient does have slightly elevated white blood cell count. She also has elevated tachycardia. It appears to be sinus per patient has no chest pain but just chest pressure and she states that this feels similar to her previous COPD exacerbation. At this time I recommend admission for further evaluation. Patient was given breathing treatments here for a total of 5 treatments so far and Solu-Medrol with minimal relief. Patient still very symptomatic. Without oxygen patient's O2 calms down. Accommodation is for admission for COPD exacerbation. Patient agrees with this plan. As I patient prophylactically on ceftriaxone and azithromycin to cover for bacterial infection until this appears to be less likely. Patient agrees with this plan. [facility] was paged and Dr Terry agrees to admission. Diagnosis Primary Impression: COPD exacerbation Admitting Information Admitting Physician Requests: Selvin Dejesus Feb 10, 2017 13:03
[2017-02-10 13:09] LABS: AUTOMATED NEUTROPHIL # 8.7 TH/MM3 (1.8-7.7); BASOPHIL % 0.4 % (0.0-2.0); EOSINOPHIL # 0.2 TH/MM3 (0-0.4); HEMATOCRIT 39.3 % (35.0-46.0); HEMOGLOBIN 12.3 GM/DL (11.6-15.3); LYMPH % 7.4 % (9.0-44.0); LYMPHOCYTE # 0.8 TH/MM3 (1.0-4.8); MEAN CORPUSCULAR HEMOGLOBIN 26.6 PG (27.0-34.0); MEAN CORPUSCULAR HGB CONC 31.3 % (32.0-36.0); MONO % 9.1 % (0.0-8.0); NEUT % 81.1 % (16.0-70.0); PLATELET COUNT 264 TH/MM3 (150-450); RED BLOOD COUNT 4.62 MIL/MM3 (4.00-5.30); RED CELL DISTRIBUTION WIDTH 15.8 % (11.6-17.2); WHITE BLOOD COUNT 10.7 TH/MM3 (4.0-11.0)
--- NOTE | 2017-02-10 13:22 | RADRPT ---
EXAM DATE/TIME: 02/10/2017 13:00 [facility] COMPARISON: CHEST SINGLE AP, February 02, 2017, 18:25. INDICATIONS : Short of breath MEDICAL HISTORY : Chronic obstructive pulmonary disease. Hypertension. SURGICAL HISTORY : None. ENCOUNTER: Initial ACUITY: 4 - 6 days PAIN SCORE: 0/10 LOCATION: Bilateral chest FINDINGS: No new focal pleural or parenchymal opacities. The cardiomediastinal contours are unremarkable. Osse ous structures are intact. CONCLUSION: 1. No acute abnormality or significant interval change. Wilton Ruiz MD on February 10, 2017 at 13:19 Board Certified Radiologist. This report was verified electronically.
[2017-02-10 13:39] LABS: BICARBONATE 34.1 MEQ/L (21.0-32.0); BLOOD UREA NITROGEN 12 MG/DL (7-18); CALCIUM 8.6 MG/DL (8.5-10.1); CHLORIDE 95 MEQ/L (98-107); CREATININE 0.73 MG/DL (0.50-1.00); GLOMERULAR FILTRATION RATE 97 ML/MIN (>89); GLUCOSE,RANDOM 189 MG/DL (74-106); SODIUM (NA) 134 MEQ/L (136-145)
[2017-02-10] MEDS: RESP: ALBUTEROL 2.5 MG/IPRATROPIUM 0.5 MG NEB (SCH) INH (13:41)
[2017-02-10 13:53] LABS: DIGOXIN 0.8 NG/ML (0.8-2.0); TROPONIN I LESS THAN 0.02 NG/ML (0.02-0.05)
[2017-02-10] MEDS ORDERED: AZITHROMYCIN INJ 500 MG in SODIUM CHLOR 0.9% 250 ML INJ 250 ML IV ONE (14:15)
[2017-02-10] MEDS ORDERED: cefTRIAXone INJ 1,000 MG in SODIUM CHLORIDE 0.9% INJ 100 ML IV ONE (14:15)
[2017-02-10 14:23] LABS: PROTHROMBIN TIME - PATIENT 9.7 SEC (9.8-11.6)
[2017-02-10] MEDS ORDERED: ONDANSETRON HCL 4 MG/2 ML VIAL IVP PRN (15:45)
[2017-02-10] MEDS ORDERED: NALOXONE HCL 0.4 MG/ML AMP IV PUSH PRN (15:45)
[2017-02-10] MEDS ORDERED: BISACODYL 10 MG SUPP RECTAL PRN (15:45)
[2017-02-10] MEDS ORDERED: SODIUM CHLORIDE 0.9% FLUSH 10 ML FLUSH IV FLUSH PRN (15:45)
[2017-02-10] MEDS ORDERED: SENNOSIDES 8.6 MG TAB PO PRN (15:45)
[2017-02-10] MEDS ORDERED: ACETAMINOPHEN 325 MG TAB PO PRN (15:45)
--- NOTE | 2017-02-10 16:23 | HHI.HP ---
[facility] Service [facility] Hospitalists Primary Care Physician No Primary Care Physician Admission Diagnosis COPD exacerbation Diagnoses: (1) History of COPD (2) Afib (3) Acute bronchitis Travel History International Travel<30 Days: No Contact w/Intl Traveler <30 Da: No Traveled to Known Affected Are: No History of Present Illness 66F who recently spent a night at [place] for COPD exacerbation presents 3 days later with COPD exacerbation. She was unable to manage her COPD flare up at home and returns today with labored breathing. She has a 20+ year history of smoking, quit 2 weeks ago, using the patch. She denies fevers, but does admit she has had a productive cough lately. Review of Systems Constitutional: COMPLAINS OF: Fatigue, DENIES: Diaphoretic episodes, Fever Eyes: DENIES: Blurred vision, Diplopia Respiratory: COMPLAINS OF: Cough, Wheezing, Sputum production, DENIES: Hemoptysis Cardiovascular: DENIES: Chest pain, Palpitations, Syncope Gastrointestinal: COMPLAINS OF: Abdominal pain Musculoskeletal: COMPLAINS OF: Joint pain, Muscle aches Psychiatric: DENIES: Anxiety, Confusion, Mood changes Past Family Social History Past Medical History COPD, A Fib, DM2, HTN Past Surgical History Left Hip Replacement Allergies: Coded Allergies: hydrochlorothiazide (Verified Adverse Reaction, Mild, Nausea and Malaise, 02/10/17) Pt does not want to take Family History HTN, DM2 Social History Quit smoking 2 weeks ago, Denies drinking alcohol Physical Exam Vital Signs Vital Signs Date Time Temp Pulse Resp B/P (MAP) Pulse Ox O2 Delivery O2 Flow Rate FiO2 02/10/17 13:00 96 Nasal Cannula 2.00 02/10/17 12:52 155/70 (98) 02/10/17 12:40 97 Nasal Cannula 2.00 02/10/17 12:36 99.3 135 27 197/84 (121) 95 Room Air Physical Exam GENERAL: Thin appearing woman, sitting up in bed with labored breathing. SKIN: No rashes, ecchymoses or lesions. Cool and dry. HEAD: Atraumatic. Normocephalic. No temporal or scalp tenderness. EYES: Pupils equal round and reactive. Extraocular motions intact. No scleral icterus. No injection or drainage. ENT: Nose without bleeding, purulent drainage or septal hematoma. Throat without erythema, tonsillar hypertrophy or exudate. Uvula midline. Airway patent. NECK: Trachea midline. No JVD or lymphadenopathy. Supple, nontender, no meningeal signs. CARDIOVASCULAR:Irregularly irregular, tachycardia at 108, 2/6 murmur , no gallops, or rubs. RESPIRATORY: Perasive wheezing and rales throughout, sitting up postured in bed. GASTROINTESTINAL: Abdomen soft, non-tender, nondistended. No hepato-splenomegaly , or palpable masses. No guarding. MUSCULOSKELETAL: Extremities without clubbing, cyanosis, or edema. No joint tenderness, effusion, or edema noted. NEUROLOGICAL: Awake and alert. Cranial nerves II through XII intact. Motor and sensory grossly within normal limits. Five out of 5 muscle strength in all muscle groups. Normal speech. Laboratory Laboratory Tests Test 02/10/17 12:42 02/10/17 14:00 White Blood Count 10.7 Red Blood Count 4.62 Hemoglobin 12.3 Hematocrit 39.3 Mean Corpuscular Volume 85.0 Mean Corpuscular Hemoglobin 26.6 Mean Corpuscular Hemoglobin Concent 31.3 Red Cell Distribution Width 15.8 Platelet Count 264 Mean Platelet Volume 10.0 Neutrophils (%) (Auto) 81.1 Lymphocytes (%) (Auto) 7.4 Monocytes (%) (Auto) 9.1 Eosinophils (%) (Auto) 2.0 Basophils (%) (Auto) 0.4 Neutrophils # (Auto) 8.7 Lymphocytes # (Auto) 0.8 Monocytes # (Auto) 1.0 Eosinophils # (Auto) 0.2 Basophils # (Auto) 0.0 CBC Comment DIFF FINAL Differential Comment Blood Urea Nitrogen 12 Creatinine 0.73 Random Glucose 189 Calcium Level 8.6 Magnesium Level 2.0 Sodium Level 134 Potassium Level 4.0 Chloride Level 95 Carbon Dioxide Level 34.1 Anion Gap 5 Estimat Glomerular Filtration Rate 97 Total Creatine Kinase 104 Creatine Kinase MB 2.5 Troponin I LESS THAN 0.02 Thyroid Stimulating Hormone 3rd Gen 1.120 Digoxin Level 0.8 Prothrombin Time 9.7 Prothromb Time International Ratio 1.0 Activated Partial Thromboplast Time 24.7 Date/Time Source Procedure Growth Status 02/10/17 12:47 Blood Peripheral Aerobic Blood Culture Pending Received 02/10/17 12:47 Blood Peripheral Anaerobic Blood Culture Pending Received 02/10/17 12:54 Nasal Washing Influenza Types A,B Antigen (JERMAIN) - Final NEGATIVE FOR FLU A AND B ANTIGEN.... Complete Result Diagram: 02/10/17 1242 02/10/17 1242 Imaging Last Impressions Chest X-Ray 02/10/17 1234 Signed Impressions: Service Date/Time: Friday, February 10, 2017 13:00 - CONCLUSION: 1. No acute abnormality or significant interval change. MD Graeme Arteaga VTE Risk Assessment Graeme VTE Risk Assessment: Mod/High Risk (score >= 2) Caprini Risk Assessment Model Point Value = 1 Point Value = 2 Point Value = 3 Point Value = 5 Age 41-60 Minor surgery BMI > 25 kg/m2 Swollen legs Varicose veins or History of unexplained or recurrent spontaneous Oral contraceptives or hormone replacement Sepsis (< 1 month) Serious lung disease, including pneumonia (< 1 month) Abnormal pulmonary function Acute myocardial infarction Congestive heart failure (< 1 month) History of inflammatory bowel disease Medical patient at bed rest Age 61-74 Arthroscopic surgery Major open surgery (> 45 min) Laparoscopic surgery (> 45 min) Malignancy Confined to bed (> 72 hours) Immobilizing plaster cast Central venous access Age >= 75 History of VTE Family history of VTE Factor V Leiden Prothrombin [id number] Lupus anticoagulant Anticardiolipin antibodies Elevated serum homocysteine Heparin-induced thrombocytopenia Other congenital or acquired thrombophilia Stroke (< 1 month) Elective arthroplasty Hip, pelvis, or leg fracture Acute spinal cord injury (< 1 month) Prophylaxis Regimen Total Risk Factor Score Risk Level Prophylaxis Regimen 0-1 Low Early ambulation 2 Moderate Order ONE of the following: *Sequential Compression Device (SCD) *Heparin 5000 units SQ BID 3-4 Higher Order ONE of the following medications: *Heparin 5000 units SQ TID *Enoxaparin/Lovenox 40 mg SQ daily (WT < 150 kg, CrCl > 30 mL/min) *Enoxaparin/Lovenox 30 mg SQ daily (WT < 150 kg, CrCl > 10-29 mL/min) *Enoxaparin/Lovenox 30 mg SQ BID (WT < 150 kg, CrCl > 30 mL/min) AND/OR *Sequential Compression Device (SCD) 5 or more Highest Order ONE of the following medications: *Heparin 5000 units SQ TID (Preferred with Epidurals) *Enoxaparin/Lovenox 40 mg SQ daily (WT < 150 kg, CrCl > 30 mL/min) *Enoxaparin/Lovenox 30 mg SQ daily (WT < 150 kg, CrCl > 10-29 mL/min) *Enoxaparin/Lovenox 30 mg SQ BID (WT < 150 kg, CrCl > 30 mL/min) AND *Sequential Compression Device (SCD) Assessment and Plan Problem List: (1) COPD exacerbation ICD Code: J44.1 - Obstructive chronic bronchitis with exacerbation Status: Acute (2) A-fib ICD Code: I48.91 - Unspecified atrial fibrillation (3) Acute bronchitis ICD Code: J20.9 - Acute bronchitis, unspecified Status: Acute Assessment and Plan COPD Exacerbation Benefit from overnight stay 3 days ago was short-lived Full admission with telemetry and pulse ox Scheduled nebs, continuous oxygen Inhaled steroids added to scheduled IV steroids Empiric antibiotic coverage with rocephin and azithromycin Atrial Fibrillation Currently elevated due to stress of COPD exacerbation, steroids, etc. Given today's dose of Digoxin Monitor on Telemetry Bronchitis Antibiotic coverage with Rocephin and Azithromycin DVT Prophylaxis Lovenox GI Prophylaxis Protonix Physician Certification 2 Midnight Certification Type: Admission for Inpatient Services Order for Inpatient Services The services are ordered in accordance with Medicare regulations or non- Medicare payer requirements, as applicable. In the case of services not specified as inpatient-only, they are appropriately provided as inpatient services in accordance with the 2-midnight benchmark. Estimated LOS (days): 2 days is the estimated time the patient will need to remain in the hospital, assuming treatment plan goals are met and no additional complications. Post-Hospital Plan: Home Chase Terry MD Feb 10, 2017 16:23
[2017-02-10] MEDS: ENOXAPARIN SODIUM 40 MG/0.4 ML SYRINGE SQ SCH (17:29)
[2017-02-10] MEDS: DIGOXIN 0.25 MG TAB PO SCH (17:29)
[2017-02-10] MEDS: ACETAMINOPHEN 500 MG CPLT PO PRN (18:31)
[2017-02-10] MEDS: RESP: ALBUTEROL 2.5 MG/IPRATROPIUM 0.5 MG NEB (SCH) NEB (20:00)
[2017-02-10] MEDS: RESP: BUDESONIDE 0.5 MG/2 ML NEB NEB SCH (20:00)
[2017-02-10] MEDS: FLUTICASONE PROPIONATE 50 MCG/ACT 16 GM NASAL SPRAY EACH NARE SCH (21:00)
[2017-02-10] MEDS ORDERED: DEXTROSE 50% IN WATER 50 ML VIAL(D50) IV PUSH PRN (21:15)
[2017-02-10] MEDS ORDERED: GLUCAGON 1 MG/ML VIAL OTHER PRN (21:15)
[2017-02-10] MEDS: methylPREDNISolone SOD SUCC 125 MG/2 ML VIAL IV PUSH SCH (21:24)
[2017-02-10] MEDS: SODIUM CHLORIDE 0.9% FLUSH 10 ML FLUSH IV FLUSH SCH (21:24)
[2017-02-10] MEDS: BENZONATATE 100 MG CAP PO PRN (22:28)
[2017-02-10] MEDS: INSULIN ASPART SUPPLEMENTAL SCALE SQ SCH (22:45)
[2017-02-11] VITALS (10 sets, daily range): BP systolic 150–188; BP diastolic 65–96; PULSE 95–114; RESP 18–20; TEMP 97.3–98.4; O2SAT 96–99
[2017-02-11] MEDS: ACETAMINOPHEN 500 MG CPLT PO PRN ×2 (01:18→12:20)
[2017-02-11] MEDS: BENZONATATE 100 MG CAP PO PRN (06:15)
[2017-02-11 06:17] LABS: CALCIUM 8.9 MG/DL (8.5-10.1); CREATININE 0.81 MG/DL (0.50-1.00)
[2017-02-11] MEDS: INSULIN ASPART SUPPLEMENTAL SCALE SQ SCH ×4 (08:00→20:44)
[2017-02-11] MEDS: DIGOXIN 0.25 MG TAB PO SCH (08:37)
[2017-02-11] MEDS: SODIUM CHLORIDE 0.9% FLUSH 10 ML FLUSH IV FLUSH SCH ×2 (08:37→20:43)
[2017-02-11] MEDS: PANTOPRAZOLE SOD 20 MG DELAYED RELEASE TAB PO SCH (08:37)
[2017-02-11] MEDS: methylPREDNISolone SOD SUCC 125 MG/2 ML VIAL IV PUSH SCH ×2 (08:37→18:12)
[2017-02-11] MEDS: LISINOPRIL 20 MG TAB PO SCH (08:37)
[2017-02-11] MEDS: RESP: ALBUTEROL 2.5 MG/IPRATROPIUM 0.5 MG NEB (SCH) NEB ×5 (09:09→19:35)
[2017-02-11] MEDS: RESP: BUDESONIDE 0.5 MG/2 ML NEB NEB SCH (09:12)
[2017-02-11] MEDS: FLUTICASONE PROPIONATE 50 MCG/ACT 16 GM NASAL SPRAY EACH NARE SCH ×2 (10:19→20:44)
--- NOTE | 2017-02-11 13:34 | HHI.PR ---
Subjective Remarks Patient says she is not feeling much better today. Denies any chest pain. Reports shortness of breath continues unchanged. Walking around room. She reports difficulty breathing in, as well as difficulty breathing out. Objective Vital Signs Date Time Temp Pulse Resp B/P (MAP) Pulse Ox O2 Delivery O2 Flow Rate FiO2 02/11/17 12:00 97.9 106 18 168/75 (106) 97 02/11/17 12:00 114 02/11/17 09:09 98 Nasal Cannula 2.00 02/11/17 08:15 Nasal Cannula 2.00 02/11/17 08:00 104 02/11/17 08:00 98.0 105 18 165/69 (101) 96 02/11/17 04:05 100 02/11/17 04:00 97.3 98 20 150/73 (98) 96 02/11/17 00:00 Nasal Cannula 2.00 02/11/17 00:00 98.4 110 20 150/65 (93) 98 02/10/17 23:30 104 02/10/17 20:00 110 02/10/17 20:00 97 Nasal Cannula 2.00 02/10/17 20:00 Nasal Cannula 2.00 02/10/17 20:00 97.7 109 20 154/69 (97) 97 02/10/17 17:59 111 02/10/17 17:47 Nasal Cannula 2.00 02/10/17 17:30 98.3 117 24 142/65 (90) 96 02/10/17 17:16 02/10/17 16:30 118 28 168/89 (115) 96 Nasal Cannula 2.00 I/O 02/10/17 02/10/17 02/10/17 02/11/17 02/11/17 02/11/17 07:00 15:00 23:00 07:00 15:00 23:00 Intake Total 350 ml 620 ml Balance 350 ml 620 ml Intake Oral 620 ml IV Total 350 ml # Voids 4 # Bowel Movements 0 Result Diagram: 02/10/17 1242 02/11/17 9740 Objective Remarks GENERAL: Patient sitting up in bed. Appears short of breath with talking, however breathing comfortably when relaxed. SKIN: Warm and dry. HEAD: Normocephalic. EYES: No scleral icterus. No injection or drainage. NECK: Supple, trachea midline. No JVD. CARDIOVASCULAR: Regular rate and rhythm without murmurs, gallops, or rubs. RESPIRATORY: Breath sounds equal bilaterally. No accessory muscle use. Poor air movement bilaterally. GASTROINTESTINAL: Abdomen soft, non-tender, nondistended. MUSCULOSKELETAL: No cyanosis, or edema. BACK: Nontender without obvious deformity. No CVA tenderness. A/P Assessment and Plan //COPD Exacerbation Benefit from overnight stay 3 days ago was short-lived Full admission with telemetry and pulse ox Scheduled nebs, continuous oxygen Inhaled steroids added to scheduled IV steroids Empiric antibiotic coverage with rocephin and azithromycin = Due to Tachycardia, absence of obvious infection, we'll check CT pulmonary angiogram. Patient does report difficulty breathing, as well as difficulty breathing out, and due to recently discontinuing cigarettes, could be vocal cord dysfunction secondary to recent discontinuation of cigarettes. Add Symbicort. Add menthol drops. Patient did report some coughing with swallowing. We'll check a swallow eval. We'll consult pulmonology. //Atrial Fibrillation - Currently elevated due to stress of COPD exacerbation, steroids, etc. = 10 year digoxin. Monitor on Telemetry //Bronchitis Continue Antibiotic coverage with Rocephin and Azithromycin //DVT Prophylaxis Continue Lovenox //GI Prophylaxis Protonix Discharge Planning home pending improvement. suspect 2-3 days Da Brito MD Feb 11, 2017 13:34
[2017-02-11] MEDS ORDERED: cefTRIAXone INJ 1,000 MG in SODIUM CHLORIDE 0.9% INJ 100 ML IV SCH (15:00)
[2017-02-11] MEDS ORDERED: AZITHROMYCIN INJ 500 MG in SODIUM CHLOR 0.9% 250 ML INJ 250 ML IV SCH (16:00)
[2017-02-11] MEDS ORDERED: IOHEXOL 350 MG/ML 10 ML VIAL (for RAD DIAG) IVCONTRAST ONE (16:12)
--- NOTE | 2017-02-11 16:42 | RADRPT ---
EXAM DATE/TIME: 02/11/2017 16:12 [facility] COMPARISON: CT THORAX W/O CONTRAST, November 08, 2015, 19:03. INDICATIONS : COPD exacerbation, shortness of breath. IV CONTRAST: 75 cc Omnipaque 350 (iohexol) IV RADIATION DOSE: 18.51 CTDIvol (mGy) MEDICAL HISTORY : Cerebrovascular disease. Cardiovascular disease Hypertension.A Fib; diabetes SURGICAL HISTORY : Hysterectomy. ENCOUNTER: Initial ACUITY: 1 day PAIN SCALE: 0/10 LOCATION: chest TECHNIQUE: Volumetric scanning of the chest was performed using a pulmonary embolism protocol MIP images were re constructed. Using automated exposure control and adjustment of the mA and/or kV according to patien t size, radiation dose was kept as low as reasonably achievable to obtain optimal diagnostic quality images. DICOM format image data is available electronically for review and comparison. Follow-up recommendations for detected pulmonary nodules are based at a minimum on nodule size and pa tient risk factors according to Fleischner Society Guidelines. FINDINGS: There is no evidence for PE for technique. Previously seen left upper lobe parenchymal density o n the study from 2005 is no longer seen. Extensive COPD is identified with biapical scarring and righ t has not significantly changed, however in the left lung the left apical scar appears more anteriorl y located measures 1.4 cm in size and should be followed. There is no pleural effusion. The mediastin um is unremarkable. CONCLUSION: 1. There is no evidence for PE for technique. 2. Previously seen left upper lobe parenchymal densities no longer seen, however there is a new densi ty in the left upper lobe anterior apex could potentially be an area of scar, however should be follo wed since it projects in a different location as compared to the prior exam. Repeat noncontrast chest CT is recommended in 6 months. Krystin Chatman MD on February 11, 2017 at 16:32 Board Certified Radiologist. This report was verified electronically.
[2017-02-11] MEDS ORDERED: CARVEDILOL 3.125 MG TAB PO ONE (17:30)
[2017-02-11] MEDS: ENOXAPARIN SODIUM 40 MG/0.4 ML SYRINGE SQ SCH (18:12)
--- NOTE | 2017-02-11 18:40 | MB ---
cc: Anthony LITTLE M.D. DATE OF CONSULTATION 02/11/17 REASON FOR CONSULTATION COPD. HISTORY OF PRESENT ILLNESS This is a 66-year-old white female with a history of COPD, has been on home oxygen at two liters via nasal cannula. The patient has had multiple admissions in the hospital with exacerbations of bronchitis. She has been a long-time smoker and quit smoking just a few weeks ago. She complained of cough, wheezing, chest congestion and postnasal drip and was seen in the emergency room where a chest x-ray was done which showed no active pulmonary infiltrates. The patient was then admitted for exacerbation of COPD and started on IV antibiotics including Rocephin 1 gram and Zithromax 500 mg a day and IV Solu-Medrol. She still has orthopnea and dyspnea and has a persistent cough with wheezing. PAST MEDICAL HISTORY 1. History of atrial fibrillation and ASHD 2. History of diabetes mellitus type 2, 3. History of hypertension 4. Prior history of emphysema 5. History for left hip replacement surgery. ALLERGIES HYDROCHLOROTHIAZIDE FAMILY HISTORY Significant for diabetes mellitus and hypertension. HABITS The patient was a smoker for over 35 years, a pack per day and quit as recently. No significant alcohol. REVIEW OF SYSTEMS Patient has had some weight loss. No leg swelling. Denies headaches or blackouts. She has postnasal drip, cough and wheezing with epigastric distress and reflux. No urinary symptoms. Denies leg or calf muscle pains. The other system review is negative. PHYSICAL EXAMINATION GENERAL: This is an elderly averagely -[place] female who is mildly dyspneic. VITAL SIGNS: She is on oxygen at two liters. Blood pressure 154/60, pulse is 112, respirations 24, temperature 99. HEENT: Head normocephalic. Pupils are reactive and equal. Tongue is moist. Throat is injected. Nasal mucosa is clear. NECK: Supple. No bruits, no thyroid enlargement or lymphadenopathy. CHEST: Equal movements with an increased AP diameter with diffuse wheezes throughout both lung grubbs. Prolonged expirations. No crackles. CARDIAC: Heart sounds are regular S1-S2 with no murmur. No S3 gallop. ABDOMEN: Soft and protuberant. No mass, no organomegaly or tenderness. Bowel sounds are active. EXTREMITIES: Varicosities. No edema. NEUROLOGIC: Reflexes are 1+ with no gross motor deficits. Cranial nerves grossly intact. RECTAL: Exam is deferred. SKIN: No lesions are noted. IMPRESSION 1. COPD with acute exacerbation 2. Severe emphysema and chronic bronchitis 3. Atrial fibrillation and ASHD 4. Hypertension. PLAN The patient has been started on IV Zithromax 500 mg daily and Rocephin 1 gram IV daily. We will also add Solu-Medrol 40 mg IV every 6 hours. Nebulized DuoNeb solution added q.6 h and albuterol nebs 2.5 mg q.4 h p.r.n. Also, she will be placed on Symbicort 160/4.5 mcg 2 puffs twice daily. The patient will give a sputum for culture and Gram stain. We will hold off on Pulmicort respules at this time. I will follow the case with you Dr. Feliciano. Thank you for this consultation. MD JOSE ANGEL Acuña/ /5:50 PM /6:07 PM
[2017-02-11] MEDS: MENTHOL LOZENGE BUCCAL PRN (19:16)
[2017-02-11] MEDS ORDERED: ALPRAZolam 0.25 MG TAB PO ONE (20:30)
[2017-02-11] MEDS: BUDESONIDE-FORMOTEROL 160/4.5 MCG INHALER INH SCH (20:43)
[2017-02-11] MEDS: INSULIN DETEMIR 100 UNITS/ML VIAL SQ SCH (20:43)
[2017-02-12] VITALS (12 sets, daily range): BP systolic 134–177; BP diastolic 68–94; PULSE 97–115; RESP 17–21; TEMP 97.3–98.1; O2SAT 94–100
[2017-02-12] MEDS: MENTHOL LOZENGE BUCCAL PRN (00:52)
[2017-02-12] MEDS: methylPREDNISolone SOD SUCC 125 MG/2 ML VIAL IV PUSH SCH ×5 (00:52→23:52)
[2017-02-12] MEDS ORDERED: RESP: ALBUTEROL 2.5 MG/IPRATROPIUM 0.5 MG NEB (SCH) NEB ONE (01:30)
[2017-02-12] MEDS ORDERED: methylPREDNISolone SOD SUCC 125 MG/2 ML VIAL IV ONE (01:45)
[2017-02-12] MEDS: RESP: ALBUTEROL CONC 2.5 MG/0.5 ML NEB NEB PRN (05:25)
[2017-02-12] MEDS: RESP: ALBUTEROL 2.5 MG/IPRATROPIUM 0.5 MG NEB (SCH) NEB ×4 (08:09→20:00)
[2017-02-12] MEDS: INSULIN ASPART SUPPLEMENTAL SCALE SQ SCH ×4 (08:32→21:03)
[2017-02-12] MEDS: SODIUM CHLORIDE 0.9% FLUSH 10 ML FLUSH IV FLUSH SCH ×2 (08:40→21:00)
[2017-02-12] MEDS: DIGOXIN 0.25 MG TAB PO SCH (08:40)
[2017-02-12] MEDS: FLUTICASONE PROPIONATE 50 MCG/ACT 16 GM NASAL SPRAY EACH NARE SCH ×2 (08:40→21:00)
[2017-02-12] MEDS: BUDESONIDE-FORMOTEROL 160/4.5 MCG INHALER INH SCH ×2 (08:40→21:00)
[2017-02-12] MEDS: LISINOPRIL 20 MG TAB PO SCH (08:41)
[2017-02-12] MEDS: PANTOPRAZOLE SOD 20 MG DELAYED RELEASE TAB PO SCH (08:41)
[2017-02-12] MEDS: INSULIN DETEMIR 100 UNITS/ML VIAL SQ SCH ×2 (08:42→21:04)
[2017-02-12] MEDS ORDERED: ALPRAZolam 0.25 MG TAB PO ONE (08:45)
[2017-02-12] MEDS ORDERED: CARVEDILOL 3.125 MG TAB PO SCH (09:00)
--- NOTE | 2017-02-12 13:49 | EKG ---
Date Performed: 02/10/2017 Time Performed: 13:17:42 PTAGE: 66 years EKG: SINUS TACHYCARDIA NONSPECIFIC ST & T-WAVE ABNORMALITY Compared to previous tracing, ST levy ges are new. Clinical correlation is needed for possible ischemia ABNORMAL RHYTHM ECG PREVIOUS TRACING : 10/14/2016 15.30 DOCTOR: Brad Tejeda Interpretating Date/Time 02/12/2017 13:47:43
[2017-02-12] MEDS ORDERED: NIFEdipine 30 MG SUSTAINED RELEASE TAB PO ONE (14:00)
[2017-02-12] MEDS ORDERED: LORATADINE 10 MG TAB PO ONE (14:15)
[2017-02-12] MEDS ORDERED: LEVOFLOXACIN 750 MG TAB PO ONE ×2 (14:15→14:30)
--- NOTE | 2017-02-12 14:25 | HHI.PR ---
Subjective Remarks Patient says that shortness of breath is somewhat worse today. Feels like she might need be IPAP later. Denies any chest pain. Denies any nausea or vomiting. Reports bowel movement today. Objective Vital Signs Date Time Temp Pulse Resp B/P (MAP) Pulse Ox O2 Delivery O2 Flow Rate FiO2 02/12/17 08:40 Nasal Cannula 2.00 02/12/17 08:11 98 Nasal Cannula 2.00 02/12/17 08:05 97.3 111 17 177/93 (121) 98 02/12/17 04:00 98.0 101 20 167/74 (105) 99 02/12/17 03:53 103 02/12/17 03:44 102 02/12/17 00:00 97.6 97 20 174/82 (112) 100 Manual Cuff/Auscultation 02/11/17 23:49 100 02/11/17 20:04 97.6 95 20 188/96 (126) 99 02/11/17 19:38 99 2.00 02/11/17 19:00 99 Nasal Cannula 2.00 02/11/17 16:30 97.6 108 18 174/80 (111) 98 175/80 (111) I/O 02/11/17 02/11/17 02/11/17 02/12/17 02/12/17 02/12/17 07:00 15:00 23:00 07:00 15:00 23:00 Intake Total 620 ml 830 ml 720 ml Balance 620 ml 830 ml 720 ml Intake Oral 620 ml 480 ml 720 ml IV Total 350 ml # Voids 4 4 5 # Bowel Movements 0 1 Result Diagram: 02/10/17 1242 02/11/17 0450 Objective Remarks GENERAL: Patient sitting up in bed. Appears short of breath with talking, sitting up on edge of bed. Slightly more short of breath since yesterday SKIN: Warm and dry. HEAD: Normocephalic. EYES: No scleral icterus. No injection or drainage. NECK: Supple, trachea midline. No JVD. CARDIOVASCULAR: Regular rate and rhythm without murmurs, gallops, or rubs. RESPIRATORY: Breath sounds equal bilaterally. No accessory muscle use. Poor air movement bilaterally. GASTROINTESTINAL: Abdomen soft, non-tender, nondistended. MUSCULOSKELETAL: No cyanosis, or edema. BACK: Nontender without obvious deformity. No CVA tenderness. A/P Assessment and Plan //COPD Exacerbation Benefit from overnight stay 3 days ago was short-lived Full admission with telemetry and pulse ox Scheduled nebs, continuous oxygen Inhaled steroids added to scheduled IV steroids Empiric antibiotic coverage with rocephin and azithromycin = Due to Tachycardia, absence of obvious infection, we'll check CT pulmonary angiogram. Patient does report difficulty breathing, as well as difficulty breathing out, and due to recently discontinuing cigarettes, could be vocal cord dysfunction secondary to recent discontinuation of cigarettes. Add Symbicort. Add menthol drops. Patient did report some coughing with swallowing. We'll check a swallow eval. We'll consult pulmonology. = Discussed with speech therapy. Swallow evaluation at bedside shows no aspiration. With worsening shortness of breath today. Looked over recent sputum cultures from August of this year with stenotrophomonas and Acinetobacter. We'll discontinue current antibiotics and start Levaquin. Add Singulair and Claritin. Continue duo nebs. Continue IV steroids. dis continue beta paradise. //Atrial Fibrillation - Currently elevated due to stress of COPD exacerbation, steroids, etc. = cont year digoxin. Monitor on Telemetry //Hypertension. -Continue beta paradise due to emphysema. We'll start on nifedipine. //Bronchitis Continue Antibiotic coverage -Previous sputum cultures from July showing Acinetobacter and stenotrophomonas. Will switch to levofloxacin. //DVT Prophylaxis Continue Lovenox //GI Prophylaxis Protonix Discharge Planning Slight worsening pressure status. Continue treatment for COPD exacerbation. If improvement, Suspect DC home in 2-3 days Da Brito MD Feb 12, 2017 14:25
--- NOTE | 2017-02-12 14:28 | HHI.PR ---
Subjective Remarks She is SOB and is coughing. On O2 2 L. Wants a CPAP machine. Objective Vital Signs Date Time Temp Pulse Resp B/P (MAP) Pulse Ox O2 Delivery O2 Flow Rate FiO2 02/12/17 08:40 Nasal Cannula 2.00 02/12/17 08:11 98 Nasal Cannula 2.00 02/12/17 08:05 97.3 111 17 177/93 (121) 98 02/12/17 04:00 98.0 101 20 167/74 (105) 99 02/12/17 03:53 103 02/12/17 03:44 102 02/12/17 00:00 97.6 97 20 174/82 (112) 100 Manual Cuff/Auscultation 02/11/17 23:49 100 02/11/17 20:04 97.6 95 20 188/96 (126) 99 02/11/17 19:38 99 2.00 02/11/17 19:00 99 Nasal Cannula 2.00 02/11/17 16:30 97.6 108 18 174/80 (111) 98 175/80 (111) I/O 02/11/17 02/11/17 02/11/17 02/12/17 02/12/17 02/12/17 07:00 15:00 23:00 07:00 15:00 23:00 Intake Total 620 ml 830 ml 720 ml Balance 620 ml 830 ml 720 ml Intake Oral 620 ml 480 ml 720 ml IV Total 350 ml # Voids 4 4 5 # Bowel Movements 0 1 Result Diagram: 02/10/17 1242 02/11/17 0450 Objective Remarks GENERAL: This is an elderly averagely -[place] female who is mildly dyspneic. HEENT: Head normocephalic. Pupils are reactive and equal. Tongue is moist. Throat is injected. Nasal mucosa is clear. NECK: Supple. No bruits, no thyroid enlargement or lymphadenopathy. CHEST: Equal movements with an increased AP diameter with wheezes throughout both lung grubbs. Prolonged expirations. No crackles. CARDIAC: Heart sounds are regular S1-S2 with no murmur. No S3 gallop. ABDOMEN: Soft and protuberant. No mass, no organomegaly or tenderness. Bowel sounds are active. EXTREMITIES: No edema. NEUROLOGIC: Reflexes are 1+ with no gross motor deficits. Cranial nerves grossly intact. RECTAL: Exam is deferred. SKIN: No lesions are noted. Assessment and Plan Assessment and Plan IMPRESSION 1. COPD with acute exacerbation 2. Severe emphysema and chronic bronchitis 3. Atrial fibrillation and ASHD 4. Hypertension. 5. Lung Nodule Plan : 1. Cont Antibiotics , Rocephin , Zithromax 2. Solumedrol 40 mg IV q8h. 3. Duoneb nebs qid. 4. BiPAP at HS 12/5 CM FIO2 28 %. 5. Continue Symbicort 160/4.5 mcg , 2puffs bid 6. BMP in am Anthony Feliciano MD Feb 12, 2017 14:28
[2017-02-12] MEDS ORDERED: MONTELUKAST SODIUM 4 MG CHEWABLE TAB CHEW ONE (15:00)
--- NOTE | 2017-02-12 15:11 | RADRPT ---
EXAM DATE/TIME: 02/12/2017 14:23 [facility] COMPARISON: CHEST SINGLE AP, February 10, 2017, 13:00. INDICATIONS : Short of breath. MEDICAL HISTORY : Diabetes mellitus type II. Cerebrovascular disease. Cardiovascular disease Hypertension. A Fib. SURGICAL HISTORY : None. ENCOUNTER: Subsequent ACUITY: 3 days PAIN SCORE: Non-responsive. LOCATION: Bilateral chest FINDINGS: The lungs are clear without infiltrate, nodule, or mass. There is no appreciable pleural effusion fo r technique. Heart and mediastinum are unremarkable. There are atherosclerotic calcifications of the aorta due to chronic atherosclerotic disease. CONCLUSION: No acute cardiopulmonary disease. Krystin Chatman MD on February 12, 2017 at 15:08 Board Certified Radiologist. This report was verified electronically.
[2017-02-12] MEDS: ENOXAPARIN SODIUM 40 MG/0.4 ML SYRINGE SQ SCH (17:34)
[2017-02-12 18:03] LABS: AUTOMATED NEUTROPHIL # 11.6 TH/MM3 (1.8-7.7); BASOPHIL % 0.2 % (0.0-2.0); HEMOGLOBIN 13.4 GM/DL (11.6-15.3); LYMPH % 4.8 % (9.0-44.0); LYMPHOCYTE # 0.6 TH/MM3 (1.0-4.8); MEAN CELL VOLUME 84.5 FL (80.0-100.0); MEAN PLATELET VOLUME 10.6 FL (7.0-11.0); MONO % 7.7 % (0.0-8.0); NEUT % 87.3 % (16.0-70.0); PLATELET COUNT 321 TH/MM3 (150-450); RED BLOOD COUNT 4.97 MIL/MM3 (4.00-5.30); RED CELL DISTRIBUTION WIDTH 15.7 % (11.6-17.2); WHITE BLOOD COUNT 13.3 TH/MM3 (4.0-11.0)
[2017-02-12 18:22] LABS: ALBUMIN 3.3 GM/DL (3.4-5.0); BICARBONATE 32.8 MEQ/L (21.0-32.0); CALCIUM 8.7 MG/DL (8.5-10.1); CREATININE 0.81 MG/DL (0.50-1.00); PHOSPHORUS 2.9 MG/DL (2.5-4.9)
[2017-02-12] MEDS ORDERED: SODIUM CHLORID 0.9% 500 ML INJ 500 ML IV ONE (19:15)
[2017-02-12] MEDS: SODIUM CHLOR 0.9% 1000 ML INJ 1,000 ML IV SCH (20:59)
[2017-02-12] MEDS ORDERED: CARVEDILOL 6.25 MG TAB PO SCH (21:00)
[2017-02-12 21:04] LABS: BICARBONATE 29.3 MEQ/L (21.0-32.0); CALCIUM 8.1 MG/DL (8.5-10.1); CREATININE 0.7 MG/DL (0.50-1.00)
--- NOTE | 2017-02-12 22:00 | EKG ---
Date Performed: 02/12/2017 Time Performed: 14:29:48 PTAGE: 66 years EKG: Baseline artifact present Sinus tachycardia with sinus arrhythmia. Nonspecific ST and T wav e abnormalities Compared to prior electrocardiogram, rate has decreased DOCTOR: Dexter Hickey Interpretating Date/Time 02/12/2017 22:00:08
[2017-02-12] MEDS: ALPRAZolam 0.25 MG TAB PO PRN (22:28)
[2017-02-12] MEDS: BENZONATATE 100 MG CAP PO PRN (23:52)
[2017-02-13] VITALS (15 sets, daily range): BP systolic 148–181; BP diastolic 74–96; PULSE 104–118; RESP 20–24; TEMP 97.1–98.4; O2SAT 93–100
[2017-02-13] MEDS: SODIUM CHLOR 0.9% 1000 ML INJ 1,000 ML IV SCH ×3 (04:43→22:26)
[2017-02-13] MEDS: RESP: ALBUTEROL CONC 2.5 MG/0.5 ML NEB NEB PRN ×2 (04:48→23:03)
[2017-02-13] MEDS: methylPREDNISolone SOD SUCC 125 MG/2 ML VIAL IV PUSH SCH ×3 (05:05→16:05)
[2017-02-13 06:02] LABS: SODIUM,RANDOM URINE 138 MEQ/L
[2017-02-13 06:04] LABS: BILIRUBIN, URINE NEG (NEG); BLOOD, URINE NEG (NEG); GLUCOSE,URINE 150 mg/dL (NEG); KETONE, URINE 10 mg/dL (NEG); MUCUS URINE FEW /lpf (OCC); NITRITE,URINE NEG (NEG); SQUAMOUS EPITHELIAL CELL URINE <1 /hpf (0-5); URINE COLOR LIGHT-YELLOW (YELLW/STRAW); URINE LEUKOCYTE ESTERASE NEG (NEG)
[2017-02-13 06:20] LABS: OSMOLALITY,URINE 585 MOSM/KG (300-1300)
[2017-02-13] MEDS: RESP: ALBUTEROL 2.5 MG/IPRATROPIUM 0.5 MG NEB (SCH) NEB ×4 (07:37→19:24)
[2017-02-13] MEDS: INSULIN ASPART SUPPLEMENTAL SCALE SQ SCH ×4 (08:00→22:26)
[2017-02-13] MEDS: NIFEdipine 30 MG SUSTAINED RELEASE TAB PO SCH (08:04)
[2017-02-13] MEDS: PANTOPRAZOLE SOD 20 MG DELAYED RELEASE TAB PO SCH (08:04)
[2017-02-13] MEDS: LORATADINE 10 MG TAB PO SCH (08:05)
[2017-02-13] MEDS: DIGOXIN 0.25 MG TAB PO SCH (08:05)
[2017-02-13] MEDS: LISINOPRIL 20 MG TAB PO SCH (08:05)
[2017-02-13] MEDS: LEVOFLOXACIN 750 MG TAB PO SCH (08:05)
[2017-02-13] MEDS: INSULIN DETEMIR 100 UNITS/ML VIAL SQ SCH ×2 (08:06→22:26)
[2017-02-13] MEDS: FLUTICASONE PROPIONATE 50 MCG/ACT 16 GM NASAL SPRAY EACH NARE SCH ×2 (08:10→22:28)
[2017-02-13] MEDS: BUDESONIDE-FORMOTEROL 160/4.5 MCG INHALER INH SCH ×2 (08:10→22:28)
[2017-02-13] MEDS: ALPRAZolam 0.25 MG TAB PO PRN ×3 (08:10→23:06)
[2017-02-13] MEDS ORDERED: LEVOFLOXACIN 750 MG TAB PO SCH (09:00)
[2017-02-13] MEDS: BENZONATATE 100 MG CAP PO PRN ×2 (11:49→22:25)
[2017-02-13 12:42] LABS: CALCIUM 7.7 MG/DL (8.5-10.1); CREATININE 0.52 MG/DL (0.50-1.00)
--- NOTE | 2017-02-13 14:29 | HHI.PR ---
Subjective Remarks Patient says she is feeling about the same as yesterday. Denies any chest pain. Does any nausea or vomiting. Still with difficulty breathing. Objective Vital Signs Date Time Temp Pulse Resp B/P (MAP) Pulse Ox O2 Delivery O2 Flow Rate FiO2 02/13/17 13:49 100 30 02/13/17 12:05 97.1 108 23 160/78 (105) 96 02/13/17 08:22 98.4 110 24 149/77 (101) 97 02/13/17 07:40 94 Nasal Cannula 1.00 02/13/17 04:00 97.8 105 20 159/74 (102) 94 02/13/17 03:54 104 02/13/17 00:00 97.9 107 21 148/88 (108) 97 02/13/17 00:00 114 02/12/17 23:28 96 30 02/12/17 20:29 94 02/12/17 20:01 115 02/12/17 20:00 97.8 110 21 149/68 (95) 95 02/12/17 19:00 94 Room Air 02/12/17 16:05 98.0 101 17 134/72 (92) 95 I/O 02/12/17 02/12/17 02/12/17 02/13/17 02/13/17 02/13/17 07:00 15:00 23:00 07:00 15:00 23:00 Intake Total 720 ml 980 ml 1240 ml Output Total 3 ml 500 ml Balance 720 ml 977 ml 740 ml Intake Oral 720 ml 480 ml 240 ml IV Total 500 ml 1000 ml Output Urine Total 3 ml 500 ml # Voids 5 # Bowel Movements 1 1 0 Result Diagram: 02/12/17 1742 02/13/17 1111 Objective Remarks GENERAL: Patient sitting up in bed. Appears short of breath with talking, sitting up on edge of bed. No change on exam from yesterday. SKIN: Warm and dry. HEAD: Normocephalic. EYES: No scleral icterus. No injection or drainage. NECK: Supple, trachea midline. No JVD. CARDIOVASCULAR: Regular rate and rhythm without murmurs, gallops, or rubs. RESPIRATORY: Breath sounds equal bilaterally. No accessory muscle use. Poor air movement bilaterally. GASTROINTESTINAL: Abdomen soft, non-tender, nondistended. MUSCULOSKELETAL: No cyanosis, or edema. BACK: Nontender without obvious deformity. No CVA tenderness. A/P Assessment and Plan //COPD Exacerbation Benefit from overnight stay 3 days ago was short-lived Full admission with telemetry and pulse ox Scheduled nebs, continuous oxygen Inhaled steroids added to scheduled IV steroids Empiric antibiotic coverage with rocephin and azithromycin = Due to Tachycardia, absence of obvious infection, we'll check CT pulmonary angiogram. Patient does report difficulty breathing, as well as difficulty breathing out, and due to recently discontinuing cigarettes, could be vocal cord dysfunction secondary to recent discontinuation of cigarettes. Add Symbicort. Add menthol drops. Patient did report some coughing with swallowing. We'll check a swallow eval. We'll consult pulmonology. = Discussed with speech therapy. Swallow evaluation at bedside shows no aspiration. With worsening shortness of breath today. Looked over recent sputum cultures from August of this year with stenotrophomonas and Acinetobacter. We'll discontinue current antibiotics and start Levaquin. Add Singulair and Claritin. Continue duo nebs. Continue IV steroids. dis continue beta paradise. -Previous sputum cultures from July showing Acinetobacter and stenotrophomonas. = 02/13. BNP mildly elevated 200. We'll check echocardiogram. Continue with BiPAP as needed. Appreciate pulmonology assistance. Continue Levaquin, duo nebs, IV steroids. Add PPI for possible reflux. //hypoosmotic euvolemic Hyponatremia. Sodium down to 127 yesterday. Down to 124 today. Corrects to 126. Elevated sodium in urine -Although this could very well be SIADH secondary to stress, will discontinue Lasix. I suspect poor compliance at home, although she is getting in here. We' ll continue IV fluids with normal saline, continue to monitor sodium level tomorrow. //Atrial Fibrillation - Currently elevated due to stress of COPD exacerbation, steroids, etc. = cont. digoxin. Monitor on Telemetry //Hypertension. -cont on nifedipine. hold b due to emphysema. //DVT Prophylaxis Continue Lovenox //GI Prophylaxis Protonix Discharge Planning Continue treatment for COPD exacerbation/bronchitis. If improvement, Suspect DC home in 2-3 days Da Brito MD Feb 13, 2017 14:29
[2017-02-13] MEDS ORDERED: PANTOPRAZOLE SOD 20 MG DELAYED RELEASE TAB PO ONE (14:45)
[2017-02-13] MEDS: ENOXAPARIN SODIUM 40 MG/0.4 ML SYRINGE SQ SCH (16:05)
--- NOTE | 2017-02-13 16:37 | HHI.PR ---
Subjective Remarks She is still SOB and is coughing. Sodium is now down to 124. On O2 2 L. Was on a BiPAP machine last nite. Objective Vital Signs Date Time Temp Pulse Resp B/P (MAP) Pulse Ox O2 Delivery O2 Flow Rate FiO2 02/13/17 16:23 97.9 109 22 181/96 (124) 93 02/13/17 13:49 100 30 02/13/17 12:05 97.1 108 23 160/78 (105) 96 02/13/17 08:22 98.4 110 24 149/77 (101) 97 02/13/17 07:40 94 Nasal Cannula 1.00 02/13/17 04:00 97.8 105 20 159/74 (102) 94 02/13/17 03:54 104 02/13/17 00:00 97.9 107 21 148/88 (108) 97 02/13/17 00:00 114 02/12/17 23:28 96 30 02/12/17 20:29 94 02/12/17 20:01 115 02/12/17 20:00 97.8 110 21 149/68 (95) 95 02/12/17 19:00 94 Room Air I/O 02/12/17 02/12/17 02/12/17 02/13/17 02/13/17 02/13/17 07:00 15:00 23:00 07:00 15:00 23:00 Intake Total 720 ml 980 ml 1240 ml Output Total 3 ml 500 ml Balance 720 ml 977 ml 740 ml Intake Oral 720 ml 480 ml 240 ml IV Total 500 ml 1000 ml Output Urine Total 3 ml 500 ml # Voids 5 # Bowel Movements 1 1 0 Result Diagram: 02/12/17 1742 02/13/17 1111 Objective Remarks GENERAL: This is an elderly averagely -[place] female who is mildly dyspneic. HEENT: Head normocephalic. Pupils are reactive and equal. Tongue is moist. Throat is injected. Nasal mucosa is clear. NECK: Supple. No bruits, no thyroid enlargement or lymphadenopathy. CHEST: Equal movements with an increased AP diameter with wheezes throughout both lung grubbs. Prolonged expirations. No crackles. CARDIAC: Heart sounds are regular S1-S2 with no murmur. No S3 gallop. ABDOMEN: Soft and protuberant. No mass, no organomegaly or tenderness. Bowel sounds are active. EXTREMITIES: No edema. NEUROLOGIC: Reflexes are 1+ with no gross motor deficits. Cranial nerves grossly intact. RECTAL: Exam is deferred. SKIN: No lesions are noted. Assessment and Plan Assessment and Plan IMPRESSION 1. COPD with acute exacerbation 2. Severe emphysema and chronic bronchitis 3. Atrial fibrillation and ASHD 4. Hypertension. 5. Lung Nodule 6. Hyponatremia Plan : 1. Cont Antibiotic Levaquin 750 mg 2. Change Solumedrol to 40 mg IV q8h. 3. Duoneb nebs qid. 4. BiPAP at HS 12/5 CM FIO2 28 %. 5. Continue Symbicort 160/4.5 mcg , 2puffs bid 6. BMP in am 7. Reduce IV's to 42 CC Anthony Feliciano MD Feb 13, 2017 16:37
[2017-02-13] MEDS: SODIUM CHLORIDE 0.9% FLUSH 10 ML FLUSH IV FLUSH SCH (21:00)
[2017-02-13] MEDS: MONTELUKAST SODIUM 4 MG CHEWABLE TAB CHEW SCH (22:25)
[2017-02-13] MEDS: ACETAMINOPHEN 500 MG CPLT PO PRN (22:25)
[2017-02-13] MEDS: methylPREDNISolone SOD SUCC 40 MG/1 ML VIAL IV PUSH SCH (22:25)
[2017-02-14] VITALS (14 sets, daily range): BP systolic 111–176; BP diastolic 63–80; PULSE 76–114; RESP 20–22; TEMP 97.2–97.8; O2SAT 93–98
[2017-02-14] MEDS ORDERED: cloNIDine HCL 0.1 MG TAB PO PRN (01:00)
[2017-02-14] MEDS: RESP: ALBUTEROL CONC 2.5 MG/0.5 ML NEB NEB PRN (03:06)
[2017-02-14] MEDS: methylPREDNISolone SOD SUCC 40 MG/1 ML VIAL IV PUSH SCH ×3 (06:00→21:20)
--- NOTE | 2017-02-14 06:32 | RADRPT ---
EXAM DATE/TIME: 02/14/2017 06:11 [place] COMPARISON: CT PULMONARY ANGIOGRAM, February 11, 2017, 16:12. CHEST SINGLE AP, February 12, 2017, 14:23. INDICATIONS : Short of breath, lethargic MEDICAL HISTORY : Chronic obstructive pulmonary disease. Diabetes mellitus type II. Hypertension. A-fib SURGICAL HISTORY : None. ENCOUNTER: Subsequent ACUITY: 4 - 6 days PAIN SCORE: Non-responsive. LOCATION: Bilateral chest FINDINGS: 2 portable frontal views of the chest show the lungs to be hyperaerated. No infiltrates or effusions. The heart is normal in size. Bony structures are unremarkable. CONCLUSION: Hyperinflation suggesting COPD. No acute infiltrate or effusion. Alex Cosby Jr., MD on February 14, 2017 at 6:29 Board Certified Radiologist. This report was verified electronically.
[2017-02-14 07:08] LABS: AUTOMATED NEUTROPHIL # 8.3 TH/MM3 (1.8-7.7); BASOPHIL % 0.1 % (0.0-2.0); HEMATOCRIT 37.1 % (35.0-46.0); LYMPH % 7.5 % (9.0-44.0); LYMPHOCYTE # 0.7 TH/MM3 (1.0-4.8); MEAN CORPUSCULAR HGB CONC 32.5 % (32.0-36.0); MEAN PLATELET VOLUME 10.4 FL (7.0-11.0); MONO % 7.8 % (0.0-8.0); MONOCYTE # 0.8 TH/MM3 (0-0.9); NEUT % 84.6 % (16.0-70.0); PLATELET COUNT 206 TH/MM3 (150-450); RED BLOOD COUNT 4.47 MIL/MM3 (4.00-5.30); RED CELL DISTRIBUTION WIDTH 15.7 % (11.6-17.2); WHITE BLOOD COUNT 9.8 TH/MM3 (4.0-11.0)
[2017-02-14 07:29] LABS: ALBUMIN 2.8 GM/DL (3.4-5.0); BICARBONATE 28.5 MEQ/L (21.0-32.0); CALCIUM 7.6 MG/DL (8.5-10.1); CREATININE 0.48 MG/DL (0.50-1.00); MAGNESIUM 2.4 MG/DL (1.5-2.5); PHOSPHORUS 2.9 MG/DL (2.5-4.9)
[2017-02-14] MEDS: INSULIN ASPART SUPPLEMENTAL SCALE SQ SCH ×4 (07:58→22:33)
[2017-02-14] MEDS: RESP: ALBUTEROL 2.5 MG/IPRATROPIUM 0.5 MG NEB (SCH) NEB ×4 (08:00→19:41)
[2017-02-14] MEDS: SODIUM CHLORIDE 0.9% FLUSH 10 ML FLUSH IV FLUSH SCH ×2 (08:59→21:20)
[2017-02-14] MEDS: INSULIN DETEMIR 100 UNITS/ML VIAL SQ SCH ×2 (09:00→22:33)
[2017-02-14] MEDS: FLUTICASONE PROPIONATE 50 MCG/ACT 16 GM NASAL SPRAY EACH NARE SCH ×2 (09:02→21:21)
[2017-02-14] MEDS: LORATADINE 10 MG TAB PO SCH (09:02)
[2017-02-14] MEDS: BUDESONIDE-FORMOTEROL 160/4.5 MCG INHALER INH SCH ×2 (09:02→21:21)
[2017-02-14] MEDS: DIGOXIN 0.25 MG TAB PO SCH (09:02)
[2017-02-14] MEDS: LEVOFLOXACIN 750 MG TAB PO SCH (09:03)
[2017-02-14] MEDS: PANTOPRAZOLE SOD 40 MG DELAYED RELEASE TAB PO SCH (09:03)
[2017-02-14] MEDS: ALPRAZolam 0.25 MG TAB PO PRN ×2 (09:03→17:18)
[2017-02-14] MEDS: NIFEdipine 30 MG SUSTAINED RELEASE TAB PO SCH (09:03)
--- NOTE | 2017-02-14 10:47 | HHI.PR ---
Subjective Remarks Follow-up COPD with exacerbation/chronic emphysema/hyponatremia 02/14/17-patient seen and examined, she is still short of breath however denies any significant wheezing.Na of 124 Objective Vitals Vital Signs Date Time Temp Pulse Resp B/P (MAP) Pulse Ox O2 Delivery O2 Flow Rate FiO2 02/14/17 08:05 97.6 88 20 135/67 (89) 96 02/14/17 08:00 91 02/14/17 07:30 Nasal Cannula 2.00 Humidified 02/14/17 04:00 97.8 76 20 117/77 (90) 93 02/14/17 04:00 Nasal Cannula 2.00 Humidified 02/14/17 03:44 104 02/14/17 02:30 152/78 (102) 02/14/17 00:30 97.8 114 22 176/80 (112) 94 02/14/17 00:30 Nasal Cannula 2.00 Humidified 02/13/17 23:44 106 02/13/17 23:18 97 30 02/13/17 20:03 97 30 02/13/17 20:00 97.4 115 22 168/82 (110) 97 02/13/17 20:00 Nasal Cannula 2.00 Humidified 02/13/17 19:47 118 02/13/17 19:26 99 BiPAP 30 02/13/17 19:20 99 30 02/13/17 16:23 97.9 109 22 181/96 (124) 93 02/13/17 13:49 100 30 02/13/17 12:05 97.1 108 23 160/78 (105) 96 I/O 02/13/17 02/13/17 02/13/17 02/14/17 02/14/17 02/14/17 07:00 15:00 23:00 07:00 15:00 23:00 Intake Total 1240 ml 1167 ml 877 ml Output Total 500 ml 2200 ml Balance 740 ml 1167 ml -1323 ml Intake Oral 240 ml 720 ml 580 ml IV Total 1000 ml 447 ml 297 ml Output Urine Total 500 ml 2200 ml # Voids 4 # Bowel Movements 0 0 0 Result Diagram: 02/14/17 0510 02/14/17 0638 Imaging Last Impressions Chest X-Ray 02/14/17 0000 Signed Impressions: Service Date/Time: Tuesday, February 14, 2017 06:11 - CONCLUSION: Hyperinflation suggesting COPD. No acute infiltrate or effusion. Alex Cosby Jr., MD CT Angiography 02/11/17 0000 Signed Impressions: Service Date/Time: Saturday, February 11, 2017 16:12 - CONCLUSION: 1. There is no evidence for PE for technique. 2. Previously seen left upper lobe parenchymal densities no longer seen, however there is a new density in the left upper lobe anterior apex could potentially be an area of scar, however should be followed since it projects in a different location as compared to the prior exam. Repeat noncontrast chest CT is recommended in 6 months. Krystin Chatman MD Objective Remarks GENERAL: NAD SKIN: Warm and dry. HEAD: Normocephalic. EYES: No scleral icterus. No injection or drainage. NECK: Supple, trachea midline. No JVD or lymphadenopathy. CARDIOVASCULAR: Regular rate and rhythm without murmurs, gallops, or rubs. RESPIRATORY: Breath sounds decrease bilaterally. No accessory muscle use. GASTROINTESTINAL: Abdomen soft, non-tender, nondistended. MUSCULOSKELETAL: No cyanosis, or edema. BACK: Nontender without obvious deformity. No CVA tenderness. A/P Problem List: (1) COPD exacerbation ICD Code: J44.1 - Obstructive chronic bronchitis with exacerbation Status: Acute (2) A-fib ICD Code: I48.91 - Unspecified atrial fibrillation (3) Acute bronchitis ICD Code: J20.9 - Acute bronchitis, unspecified Status: Acute Assessment and Plan 66-year-old female with COPD Exacerbation Severe emphysema with chronic bronchitis Currently on IV steroids,Bronchodilators,Symbicort, Levaquin. BIPAP PRN @HS Appreciate input from Pulmonary medicine Maintain oxygen saturation above 92% Left upper lobe pulmonary nodule Repeat Noncontrast CT chest in 6 months Hypoosmotic euvolemic Hyponatremia. start Tolvaptan 15mg daily Monitor BMP Atrial Fibrillation Currently rate controlled on digoxin Not on oral anticoagulation; resume aspirin Hypertension. cont on nifedipine DVT Prophylaxis Continue Lovenox GI Prophylaxis Protonix Ministerio Monaco MD Feb 14, 2017 10:47
[2017-02-14] MEDS: MAGNESIUM HYDROXIDE SUSP 30 ML CUP PO PRN (12:22)
[2017-02-14] MEDS: ENOXAPARIN SODIUM 40 MG/0.4 ML SYRINGE SQ SCH (16:12)
[2017-02-14] MEDS: MENTHOL LOZENGE BUCCAL PRN (16:39)
--- NOTE | 2017-02-14 17:01 | ECHRPT ---
Indication: heart failure CONCLUSIONS Normal left ventricular size and wall thickness. The left ventricular systolic function of 60%. No d efinite wall motion abnormalities. Structurally normal mitral valve. Mild mitral valve regurgitation. Structurally normal tricuspid valve. There is mild tricuspid valve regurgitation. BP: / HR: Rhythm: MEASUREMENTS (Male / Female) Normal Values Technical Quality:Technically difficult study 2D ECHO LV Diastolic Diameter PLAX 3.6 cm 4.2 - 5.9 / 3.9 - 5.3 cm LV Systolic Diameter PLAX 3.2 cm IVS Diastolic Thickness 0.9 cm 0.6 - 1.0 / 0.6 - 0.9 cm LVPW Diastolic Thickness 0.8 cm 0.6 - 1.0 / 0.6 - 0.9 cm LV Relative Wall Thickness 0.5 RV Internal Dim ED PLAX 1.8 cm M-MODE Aortic Root Diameter MM 2.1 cm LA Systolic Diameter MM 2.0 cm LA Ao Ratio MM 1.0 AV Cusp Separation MM 1.4 cm DOPPLER Mitral E Point Velocity 80.0 cm/s Mitral A Point Velocity 112.0 cm/s Mitral E to A Ratio 0.7 LV E' Lateral Velocity 9.2 cm/s Mitral E to LV E' Lateral Ratio 8.7 LV E' Septal Velocity 8.7 cm/s Mitral E to LV E' Septal Ratio 9.2 FINDINGS LEFT VENTRICLE Normal left ventricular size and wall thickness. The left ventricular systolic function of 60%. No d efinite wall motion abnormalities. RIGHT VENTRICLE Normal right ventricular size and systolic function. LEFT ATRIUM The left atrial size is normal. RIGHT ATRIUM The right atrial size is normal. ATRIAL SEPTUM Normal atrial septal thickness without atrial level shunting by limited color doppler interrogation. AORTA The aortic root and proximal ascending aorta are normal in size on limited imaging. MITRAL VALVE Structurally normal mitral valve. Mild mitral valve regurgitation. AORTIC VALVE The aortic valve is not well visualized. TRICUSPID VALVE Structurally normal tricuspid valve. There is mild tricuspid valve regurgitation. PULMONARY VALVE The pulmonary valve is not well visualized. VESSELS The inferior vena cava is normal in size. PERICARDIUM No pericardial effusion. Ivan Flannery MD (Electronically Signed) Final Date:14 February 2017 17:00
--- NOTE | 2017-02-14 20:40 | HHI.PR ---
Subjective Remarks She is still SOB and has coughing. Sodium is 124. On O2 2 L. Was on a BiPAP machine for 2 hrs last nite. Objective Vital Signs Date Time Temp Pulse Resp B/P (MAP) Pulse Ox O2 Delivery O2 Flow Rate FiO2 02/14/17 19:42 98 Nasal Cannula 2.00 02/14/17 16:05 97.4 95 20 142/64 (90) 98 02/14/17 16:00 95 02/14/17 12:41 108 02/14/17 12:11 97.2 109 21 111/69 (83) 96 02/14/17 08:05 97.6 88 20 135/67 (89) 96 02/14/17 08:00 91 02/14/17 07:30 Nasal Cannula 2.00 Humidified 02/14/17 04:00 97.8 76 20 117/77 (90) 93 02/14/17 04:00 Nasal Cannula 2.00 Humidified 02/14/17 03:44 104 02/14/17 02:30 152/78 (102) 02/14/17 00:30 97.8 114 22 176/80 (112) 94 02/14/17 00:30 Nasal Cannula 2.00 Humidified 02/13/17 23:44 106 02/13/17 23:18 97 30 I/O 02/13/17 02/13/17 02/13/17 02/14/17 02/14/17 02/14/17 07:00 15:00 23:00 07:00 15:00 23:00 Intake Total 1240 ml 1167 ml 877 ml 600 ml Output Total 500 ml 2200 ml Balance 740 ml 1167 ml -1323 ml 600 ml Intake Oral 240 ml 720 ml 580 ml 600 ml IV Total 1000 ml 447 ml 297 ml Output Urine Total 500 ml 2200 ml # Voids 4 3 # Bowel Movements 0 0 0 0 Result Diagram: 02/14/17 0510 02/14/17 0638 Objective Remarks GENERAL: This is an elderly averagely -[place] female who is mildly dyspneic. HEENT: Head normocephalic. Pupils are reactive and equal. Tongue is moist. Throat is clear. Nasal mucosa is clear. NECK: Supple. No bruits, no thyroid enlargement or lymphadenopathy. CHEST: Equal movements with an increased AP diameter with wheezes throughout both lung grubbs. Prolonged expirations. No crackles. CARDIAC: Heart sounds are regular S1-S2 with no murmur. No S3 gallop. ABDOMEN: Soft and protuberant. No mass, no organomegaly or tenderness. Bowel sounds are active. EXTREMITIES: No edema. NEUROLOGIC: Reflexes are 1+ with no gross motor deficits. Cranial nerves grossly intact. RECTAL: Exam is deferred. SKIN: No lesions are noted. Assessment and Plan Assessment and Plan IMPRESSION 1. COPD with acute exacerbation 2. Severe emphysema and chronic bronchitis 3. Atrial fibrillation and ASHD 4. Hypertension. 5. Lung Nodule 6. Hyponatremia Plan : 1. Cont Antibiotic Levaquin 750 mg daily 2. Cont Solumedrol to 40 mg IV q8h. 3. Duoneb nebs qid. 4. BiPAP at HS 12/5 CM FIO2 28 %. 5. Continue Symbicort 160/4.5 mcg , 2puffs bid 6. BMP in am 7. D/C IV Anthony Feliciano MD Feb 14, 2017 20:40
[2017-02-14] MEDS: BENZONATATE 100 MG CAP PO PRN (21:19)
[2017-02-14] MEDS: ACETAMINOPHEN 500 MG CPLT PO PRN (21:20)
[2017-02-14] MEDS: MONTELUKAST SODIUM 4 MG CHEWABLE TAB CHEW SCH (21:20)
[2017-02-15] VITALS (15 sets, daily range): BP systolic 122–188; BP diastolic 64–90; PULSE 78–115; RESP 18–20; TEMP 97.1–98; O2SAT 95–100
[2017-02-15] MEDS: ACETAMINOPHEN 500 MG CPLT PO PRN (03:30)
[2017-02-15] MEDS: ALPRAZolam 0.25 MG TAB PO PRN ×3 (03:30→22:06)
[2017-02-15] MEDS: methylPREDNISolone SOD SUCC 40 MG/1 ML VIAL IV PUSH SCH ×3 (06:21→21:22)
[2017-02-15 07:20] LABS: BICARBONATE 31.5 MEQ/L (21.0-32.0); CALCIUM 8.1 MG/DL (8.5-10.1); CREATININE 0.63 MG/DL (0.50-1.00)
[2017-02-15] MEDS: SODIUM CHLORIDE 0.9% FLUSH 10 ML FLUSH IV FLUSH SCH ×2 (07:55→21:23)
[2017-02-15] MEDS: INSULIN ASPART SUPPLEMENTAL SCALE SQ SCH ×4 (07:55→22:13)
[2017-02-15] MEDS: RESP: ALBUTEROL 2.5 MG/IPRATROPIUM 0.5 MG NEB (SCH) NEB ×4 (08:20→19:03)
[2017-02-15] MEDS: LEVOFLOXACIN 750 MG TAB PO SCH (08:25)
[2017-02-15] MEDS: LORATADINE 10 MG TAB PO SCH (08:25)
[2017-02-15] MEDS: NIFEdipine 30 MG SUSTAINED RELEASE TAB PO SCH (08:25)
[2017-02-15] MEDS: DIGOXIN 0.25 MG TAB PO SCH (08:25)
[2017-02-15] MEDS: PANTOPRAZOLE SOD 40 MG DELAYED RELEASE TAB PO SCH (08:26)
[2017-02-15] MEDS: ASPIRIN 81 MG CHEW TAB CHEW SCH (08:26)
[2017-02-15] MEDS: FLUTICASONE PROPIONATE 50 MCG/ACT 16 GM NASAL SPRAY EACH NARE SCH ×2 (08:28→21:00)
[2017-02-15] MEDS: INSULIN DETEMIR 100 UNITS/ML VIAL SQ SCH ×2 (08:28→22:08)
[2017-02-15] MEDS: BUDESONIDE-FORMOTEROL 160/4.5 MCG INHALER INH SCH ×2 (08:28→21:19)
--- NOTE | 2017-02-15 10:10 | HHI.PR ---
Subjective Remarks Follow-up COPD with exacerbation/chronic emphysema/hyponatremia 02/14/17-patient seen and examined, she is still short of breath however denies any significant wheezing.Na of 124 02/15/17-patient seen and examined, during my exam, patient was struggling to breathe and reported shortness of breath. She uses BiPAP overnight for at least over 4 hours. Na up to 127 Objective Vitals Vital Signs Date Time Temp Pulse Resp B/P (MAP) Pulse Ox O2 Delivery O2 Flow Rate FiO2 02/15/17 08:53 98 Nasal Cannula 2.00 02/15/17 08:00 97.1 101 18 188/88 (121) 97 02/15/17 06:30 Nasal Cannula 2.00 Humidified 02/15/17 04:52 96 30 02/15/17 04:25 91 02/15/17 04:00 97.6 91 20 145/64 (91) 95 02/15/17 04:00 Bi-Pap 02/15/17 02:20 Nasal Cannula 2.00 Humidified 02/15/17 00:02 96 02/15/17 00:00 Bi-Pap 02/15/17 00:00 97.8 101 20 136/90 (105) 100 02/14/17 22:37 97 30 02/14/17 22:37 Bi-Pap 02/14/17 20:00 97.6 107 20 140/63 (88) 93 02/14/17 20:00 Nasal Cannula 2.00 Humidified 02/14/17 19:59 96 02/14/17 19:42 98 Nasal Cannula 2.00 02/14/17 16:05 97.4 95 20 142/64 (90) 98 02/14/17 16:00 95 02/14/17 12:41 108 02/14/17 12:11 97.2 109 21 111/69 (83) 96 I/O 02/14/17 02/14/17 02/14/17 02/15/17 02/15/17 02/15/17 07:00 15:00 23:00 07:00 15:00 23:00 Intake Total 877 ml 600 ml 530 ml Output Total 2200 ml 850 ml Balance -1323 ml 600 ml -320 ml Intake Oral 580 ml 600 ml 530 ml IV Total 297 ml Output Urine Total 2200 ml 850 ml # Voids 3 # Bowel Movements 0 0 Result Diagram: 1/2/18 0510 02/15/17 0533 Objective Remarks GENERAL: NAD SKIN: Warm and dry. HEAD: Normocephalic. EYES: No scleral icterus. No injection or drainage. NECK: Supple, trachea midline. No JVD or lymphadenopathy. CARDIOVASCULAR: Regular rate and rhythm without murmurs, gallops, or rubs. RESPIRATORY: Breath sounds decrease bilaterally. No accessory muscle use. GASTROINTESTINAL: Abdomen soft, non-tender, nondistended. MUSCULOSKELETAL: No cyanosis, or edema. BACK: Nontender without obvious deformity. No CVA tenderness. A/P Problem List: (1) COPD exacerbation ICD Code: J44.1 - Obstructive chronic bronchitis with exacerbation Status: Acute (2) A-fib ICD Code: I48.91 - Unspecified atrial fibrillation (3) Acute bronchitis ICD Code: J20.9 - Acute bronchitis, unspecified Status: Acute Assessment and Plan 66-year-old female with COPD Exacerbation Severe emphysema with chronic bronchitis Currently on IV steroids,Bronchodilators,Symbicort, Levaquin. BIPAP PRN @ Appreciate input from Pulmonary medicine Maintain oxygen saturation above 92% Left upper lobe pulmonary nodule Repeat Noncontrast CT chest in 6 months Hypoosmotic euvolemic Hyponatremia. continue Tolvaptan 15mg daily Monitor BMP Atrial Fibrillation Currently rate controlled on digoxin Not on oral anticoagulation; continue aspirin 2D echo with EF 60% Hypertension. cont on nifedipine DVT Prophylaxis Continue Lovenox GI Prophylaxis Protonix Ministerio Monaco MD Feb 15, 2017 10:10
[2017-02-15] MEDS: TOLVAPTAN 15 MG TAB PO SCH (14:54)
[2017-02-15] MEDS: ENOXAPARIN SODIUM 40 MG/0.4 ML SYRINGE SQ SCH (16:27)
--- NOTE | 2017-02-15 19:57 | HHI.PR ---
Subjective Remarks She is still SOB and has coughing and wheezing Was on a BiPAP machine last PM. Objective Vital Signs Date Time Temp Pulse Resp B/P (MAP) Pulse Ox O2 Delivery O2 Flow Rate FiO2 02/15/17 16:00 98.0 107 20 138/65 (89) 96 02/15/17 16:00 112 02/15/17 15:13 98 Nasal Cannula 2.00 02/15/17 12:11 110 02/15/17 12:00 97.7 107 19 122/68 (86) 97 02/15/17 08:53 98 Nasal Cannula 2.00 02/15/17 08:08 78 02/15/17 08:00 97.1 101 18 188/88 (121) 97 02/15/17 06:30 Nasal Cannula 2.00 Humidified 02/15/17 04:52 96 30 02/15/17 04:25 91 02/15/17 04:00 97.6 91 20 145/64 (91) 95 02/15/17 04:00 Bi-Pap 02/15/17 02:20 Nasal Cannula 2.00 Humidified 02/15/17 00:02 96 02/15/17 00:00 Bi-Pap 02/15/17 00:00 97.8 101 20 136/90 (105) 100 02/14/17 22:37 97 30 02/14/17 22:37 Bi-Pap 02/14/17 20:00 97.6 107 20 140/63 (88) 93 02/14/17 20:00 Nasal Cannula 2.00 Humidified 02/14/17 19:59 96 I/O 02/14/17 02/14/17 02/14/17 02/15/17 02/15/17 02/15/17 07:00 15:00 23:00 07:00 15:00 23:00 Intake Total 877 ml 600 ml 530 ml 720 ml Output Total 2200 ml 850 ml 1000 ml Balance -1323 ml 600 ml -320 ml -280 ml Intake Oral 580 ml 600 ml 530 ml 720 ml IV Total 297 ml Output Urine Total 2200 ml 850 ml 1000 ml # Voids 3 # Bowel Movements 0 0 Result Diagram: 02/14/17 0510 02/15/17 0533 Objective Remarks GENERAL: This is an elderly averagely -[place]ish female who is mildly dyspneic. HEENT: Head normocephalic. Pupils are reactive and equal. Tongue is moist. Throat is clear. Nasal mucosa is clear. NECK: Supple. No bruits, no thyroid enlargement or lymphadenopathy. CHEST: Equal movements with an increased AP diameter with wheezes over both lung grubbs. Prolonged expirations. No crackles. CARDIAC: Heart sounds are regular S1-S2 with no murmur. No S3 gallop. ABDOMEN: Soft and protuberant. No mass, no organomegaly or tenderness. Bowel sounds are active. EXTREMITIES: No edema. NEUROLOGIC: Reflexes are 1+ with no gross motor deficits. Cranial nerves grossly intact. RECTAL: Exam is deferred. SKIN: No lesions are noted. Assessment and Plan Assessment and Plan IMPRESSION 1. COPD with acute exacerbation 2. Severe emphysema and chronic bronchitis 3. Atrial fibrillation and ASHD 4. Hypertension. 5. Lung Nodule 6. Hyponatremia Plan : 1. Cont Antibiotic Levaquin 750 mg daily 2. Solumedrol 40 mg IV BID 3. Duoneb nebs qid. 4. BiPAP at HS 12/5 CM FIO2 28 %. 5. Continue Symbicort 160/4.5 mcg , 2puffs bid 6. BMP in am 7. PT evaluation. Anthony Feliciano MD Feb 15, 2017 19:57
[2017-02-15] MEDS: MONTELUKAST SODIUM 4 MG CHEWABLE TAB CHEW SCH (21:20)
[2017-02-16] VITALS (11 sets, daily range): BP systolic 115–168; BP diastolic 68–87; PULSE 84–113; RESP 18–20; TEMP 95.5–97.7; O2SAT 92–100
[2017-02-16 06:23] LABS: BICARBONATE 32.8 MEQ/L (21.0-32.0); CALCIUM 8.5 MG/DL (8.5-10.1); CREATININE 0.68 MG/DL (0.50-1.00)
[2017-02-16] MEDS: INSULIN ASPART SUPPLEMENTAL SCALE SQ SCH ×4 (08:00→20:59)
[2017-02-16] MEDS: ALPRAZolam 0.25 MG TAB PO PRN ×2 (08:21→16:51)
[2017-02-16] MEDS: ASPIRIN 81 MG CHEW TAB CHEW SCH (08:21)
[2017-02-16] MEDS: NIFEdipine 30 MG SUSTAINED RELEASE TAB PO SCH (08:21)
[2017-02-16] MEDS: DIGOXIN 0.25 MG TAB PO SCH (08:21)
[2017-02-16] MEDS: PANTOPRAZOLE SOD 40 MG DELAYED RELEASE TAB PO SCH (08:22)
[2017-02-16] MEDS: methylPREDNISolone SOD SUCC 40 MG/1 ML VIAL IV PUSH SCH (08:22)
[2017-02-16] MEDS: LORATADINE 10 MG TAB PO SCH (08:22)
[2017-02-16] MEDS: LEVOFLOXACIN 750 MG TAB PO SCH (08:22)
[2017-02-16] MEDS: INSULIN DETEMIR 100 UNITS/ML VIAL SQ SCH ×2 (08:23→20:58)
[2017-02-16] MEDS: SODIUM CHLORIDE 0.9% FLUSH 10 ML FLUSH IV FLUSH SCH ×2 (08:23→21:01)
[2017-02-16] MEDS: FLUTICASONE PROPIONATE 50 MCG/ACT 16 GM NASAL SPRAY EACH NARE SCH ×2 (08:24→21:00)
[2017-02-16] MEDS: BUDESONIDE-FORMOTEROL 160/4.5 MCG INHALER INH SCH ×2 (08:24→21:00)
[2017-02-16] MEDS: RESP: ALBUTEROL 2.5 MG/IPRATROPIUM 0.5 MG NEB (SCH) NEB ×4 (08:57→19:36)
[2017-02-16] MEDS: TOLVAPTAN 15 MG TAB PO SCH (09:41)
--- NOTE | 2017-02-16 10:33 | HHI.PR ---
Subjective Remarks Follow-up COPD with exacerbation/chronic emphysema/hyponatremia 02/14/17-patient seen and examined, she is still short of breath however denies any significant wheezing.Na of 124 02/15/17-patient seen and examined, during my exam, patient was struggling to breathe and reported shortness of breath. She uses BiPAP overnight for at least over 4 hours. Na up to 127 02/16/17-patient seen and examined, I of shortness of breath and patient currently on Solu-Medrol 40 mg twice a day, sodium 138 this a.m. Objective Vitals Vital Signs Date Time Temp Pulse Resp B/P (MAP) Pulse Ox O2 Delivery O2 Flow Rate FiO2 02/16/17 08:59 100 Nasal Cannula 2.00 02/16/17 08:05 Nasal Cannula 2.00 30 02/16/17 08:00 95 02/16/17 08:00 95.5 91 20 167/70 (102) 97 02/16/17 05:13 97.6 84 20 168/79 (108) 92 02/16/17 04:00 89 02/16/17 00:52 98 BiPAP 30 02/16/17 00:52 98 30 02/16/17 00:00 111 02/15/17 23:30 97.7 107 20 154/69 (97) 95 02/15/17 21:00 Nasal Cannula 2.00 02/15/17 21:00 108 02/15/17 20:43 97.9 115 20 142/77 (98) 95 02/15/17 16:00 98.0 107 20 138/65 (89) 96 02/15/17 16:00 112 02/15/17 15:13 98 Nasal Cannula 2.00 02/15/17 12:11 110 02/15/17 12:00 97.7 107 19 122/68 (86) 97 I/O 02/15/17 02/15/17 02/15/17 02/16/17 02/16/17 02/16/17 07:00 15:00 23:00 07:00 15:00 23:00 Intake Total 530 ml 720 ml 480 ml Output Total 850 ml 1000 ml 550 ml Balance -320 ml -280 ml -70 ml Intake Oral 530 ml 720 ml 480 ml Output Urine Total 850 ml 1000 ml 550 ml # Bowel Movements 0 Result Diagram: 02/14/17 0510 02/16/17 0407 Objective Remarks GENERAL: NAD SKIN: Warm and dry. HEAD: Normocephalic. EYES: No scleral icterus. No injection or drainage. NECK: Supple, trachea midline. No JVD or lymphadenopathy. CARDIOVASCULAR: Regular rate and rhythm without murmurs, gallops, or rubs. RESPIRATORY: Breath sounds decrease bilaterally. No accessory muscle use. GASTROINTESTINAL: Abdomen soft, non-tender, nondistended. MUSCULOSKELETAL: No cyanosis, or edema. BACK: Nontender without obvious deformity. No CVA tenderness. A/P Problem List: (1) COPD exacerbation ICD Code: J44.1 - Obstructive chronic bronchitis with exacerbation Status: Acute (2) A-fib ICD Code: I48.91 - Unspecified atrial fibrillation (3) Acute bronchitis ICD Code: J20.9 - Acute bronchitis, unspecified Status: Acute Assessment and Plan 66-year-old female with COPD Exacerbation Severe emphysema with chronic bronchitis Currently on IV steroids however down to 40 mg twice a day,Bronchodilators, Symbicort, Levaquin. BIPAP PRN @ Appreciate input from Pulmonary medicine Maintain oxygen saturation above 92% Left upper lobe pulmonary nodule Repeat Noncontrast CT chest in 6 months Hypoosmotic euvolemic Hyponatremia. Sodium up to 138 today continue Tolvaptan 15mg daily until 02/17/17 Monitor BMP Atrial Fibrillation Currently rate controlled on digoxin Not on oral anticoagulation; continue aspirin 2D echo with EF 60% Hypertension. cont on nifedipine DVT Prophylaxis Continue Lovenox GI Prophylaxis Protonix Ministerio Monaco MD Feb 16, 2017 10:33
[2017-02-16] MEDS: ACETAMINOPHEN 500 MG CPLT PO PRN ×2 (12:27→21:00)
[2017-02-16] MEDS: ENOXAPARIN SODIUM 40 MG/0.4 ML SYRINGE SQ SCH (16:50)
[2017-02-16] MEDS: MAGNESIUM HYDROXIDE SUSP 30 ML CUP PO PRN (18:39)
[2017-02-16] MEDS: predniSONE 20 MG TAB PO SCH (20:59)
[2017-02-16] MEDS: MONTELUKAST SODIUM 4 MG CHEWABLE TAB CHEW SCH (20:59)
[2017-02-17] VITALS: PULSE 106
[2017-02-17] MEDS: ALPRAZolam 0.25 MG TAB PO PRN ×2 (00:51→08:59)
[2017-02-17 01:39] VITALS: O2SAT 97
[2017-02-17 04:00] VITALS: PULSE 86
[2017-02-17 04:35] VITALS: BP 165/77; PULSE 87; RESP 18; TEMP 97.9; O2SAT 91
[2017-02-17 08:00] VITALS: BP 167/77; PULSE 89; PULSE 92; RESP 18; TEMP 97.7; O2SAT 93
[2017-02-17] MEDS: RESP: ALBUTEROL 2.5 MG/IPRATROPIUM 0.5 MG NEB (SCH) NEB ×2 (08:00→11:50)
[2017-02-17] MEDS: INSULIN ASPART SUPPLEMENTAL SCALE SQ SCH ×2 (08:00→11:11)
[2017-02-17 08:06] LABS: AUTOMATED NEUTROPHIL # 8.2 TH/MM3 (1.8-7.7); BASOPHIL % 0.1 % (0.0-2.0); HEMATOCRIT 39.7 % (35.0-46.0); HEMOGLOBIN 12.5 GM/DL (11.6-15.3); LYMPH % 10.6 % (9.0-44.0); LYMPHOCYTE # 1.1 TH/MM3 (1.0-4.8); MEAN CELL VOLUME 83.9 FL (80.0-100.0); MEAN CORPUSCULAR HEMOGLOBIN 26.5 PG (27.0-34.0); MEAN CORPUSCULAR HGB CONC 31.6 % (32.0-36.0); MEAN PLATELET VOLUME 9.7 FL (7.0-11.0); MONO % 7.2 % (0.0-8.0); MONOCYTE # 0.7 TH/MM3 (0-0.9); NEUT % 82.1 % (16.0-70.0); PLATELET COUNT 238 TH/MM3 (150-450); RED BLOOD COUNT 4.73 MIL/MM3 (4.00-5.30); RED CELL DISTRIBUTION WIDTH 15.7 % (11.6-17.2)
[2017-02-17 08:16] VITALS: O2SAT 98
[2017-02-17 08:28] LABS: BICARBONATE 31.6 MEQ/L (21.0-32.0); CALCIUM 8.4 MG/DL (8.5-10.1); CREATININE 0.65 MG/DL (0.50-1.00)
[2017-02-17] MEDS: INSULIN DETEMIR 100 UNITS/ML VIAL SQ SCH (08:58)
[2017-02-17] MEDS: ASPIRIN 81 MG CHEW TAB CHEW SCH (08:59)
[2017-02-17] MEDS: LEVOFLOXACIN 750 MG TAB PO SCH (08:59)
[2017-02-17] MEDS: NIFEdipine 30 MG SUSTAINED RELEASE TAB PO SCH (08:59)
[2017-02-17] MEDS: LORATADINE 10 MG TAB PO SCH (08:59)
[2017-02-17] MEDS: PANTOPRAZOLE SOD 40 MG DELAYED RELEASE TAB PO SCH (08:59)
[2017-02-17] MEDS: predniSONE 20 MG TAB PO SCH (08:59)
[2017-02-17] MEDS: TOLVAPTAN 15 MG TAB PO SCH (08:59)
[2017-02-17] MEDS: DIGOXIN 0.25 MG TAB PO SCH (08:59)
[2017-02-17] MEDS: SODIUM CHLORIDE 0.9% FLUSH 10 ML FLUSH IV FLUSH SCH (09:00)
[2017-02-17] MEDS: FLUTICASONE PROPIONATE 50 MCG/ACT 16 GM NASAL SPRAY EACH NARE SCH (09:00)
[2017-02-17] MEDS: BUDESONIDE-FORMOTEROL 160/4.5 MCG INHALER INH SCH (09:01)
[2017-02-17] MEDS ORDERED: PRED20 PO (10:00)
[2017-02-17] MEDS ORDERED: MONT4CHW2 CHEW (10:00)
[2017-02-17] MEDS ORDERED: VENTAER INH (10:00)
[2017-02-17] MEDS ORDERED: Budeson-Formot 160-4.5 Mcg Inh INH (10:00)
[2017-02-17] MEDS ORDERED: IPRA17I INH (10:00)
[2017-02-17] MEDS ORDERED: LEVA750T9 PO (10:00)
[2017-02-17] MEDS ORDERED: NIFE30TA8 PO (10:00)
[2017-02-17] MEDS ORDERED: LEVEMIR SQ (10:00)
--- NOTE | 2017-02-17 12:17 | HHI.PR ---
Subjective Remarks Follow-up COPD with exacerbation/chronic emphysema/hyponatremia 02/14/17-patient seen and examined, she is still short of breath however denies any significant wheezing.Na of 124 02/15/17-patient seen and examined, during my exam, patient was struggling to breathe and reported shortness of breath. She uses BiPAP overnight for at least over 4 hours. Na up to 127 02/16/17-patient seen and examined, I of shortness of breath and patient currently on Solu-Medrol 40 mg twice a day, sodium 138 this a.m. 02/27/17-patient seen and examined this a.m., reported improvement of shortness of breath. Currently on by mouth prednisone. Denies any chest pain. States she would like to be discharged home and is refusing SNF Objective Vitals Vital Signs Date Time Temp Pulse Resp B/P (MAP) Pulse Ox O2 Delivery O2 Flow Rate FiO2 02/17/17 08:16 98 Nasal Cannula 2.00 02/17/17 08:00 Room Air 30 02/17/17 08:00 92 02/17/17 08:00 97.7 89 18 167/77 (107) 93 02/17/17 04:35 97.9 87 18 165/77 (106) 91 02/17/17 04:00 86 02/17/17 01:39 97 30 02/17/17 00:00 106 02/16/17 23:35 97.7 108 18 128/74 (92) 94 02/16/17 20:00 108 02/16/17 20:00 97.2 112 18 140/87 (104) 93 Automatic Cuff 02/16/17 20:00 Room Air 02/16/17 19:37 95 21 02/16/17 16:00 97.5 113 20 150/68 (95) 95 02/16/17 16:00 106 I/O 02/16/17 02/16/17 02/16/17 02/17/17 02/17/17 02/17/17 07:00 15:00 23:00 07:00 15:00 23:00 Intake Total 480 ml 480 ml 120 ml Output Total 550 ml 200 ml Balance -70 ml 480 ml -80 ml Intake Oral 480 ml 480 ml 120 ml Output Urine Total 550 ml 200 ml # Voids 2 # Bowel Movements 0 1 Result Diagram: 02/17/17 0736 02/17/17 0725 Imaging Last Impressions Chest X-Ray 02/14/17 0000 Signed Impressions: Service Date/Time: Tuesday, February 14, 2017 06:11 - CONCLUSION: Hyperinflation suggesting COPD. No acute infiltrate or effusion. Alex Cosby Jr., MD CT Angiography 02/11/17 0000 Signed Impressions: Service Date/Time: Saturday, February 11, 2017 16:12 - CONCLUSION: 1. There is no evidence for PE for technique. 2. Previously seen left upper lobe parenchymal densities no longer seen, however there is a new density in the left upper lobe anterior apex could potentially be an area of scar, however should be followed since it projects in a different location as compared to the prior exam. Repeat noncontrast chest CT is recommended in 6 months. Krystin Chatman MD Objective Remarks GENERAL: NAD SKIN: Warm and dry. HEAD: Normocephalic. EYES: No scleral icterus. No injection or drainage. NECK: Supple, trachea midline. No JVD or lymphadenopathy. CARDIOVASCULAR: Regular rate and rhythm without murmurs, gallops, or rubs. RESPIRATORY: Breath sounds decrease bilaterally. No accessory muscle use. GASTROINTESTINAL: Abdomen soft, non-tender, nondistended. MUSCULOSKELETAL: No cyanosis, or edema. BACK: Nontender without obvious deformity. No CVA tenderness. Procedures none A/P Problem List: (1) COPD exacerbation ICD Code: J44.1 - Obstructive chronic bronchitis with exacerbation Status: Acute (2) A-fib ICD Code: I48.91 - Unspecified atrial fibrillation (3) Acute bronchitis ICD Code: J20.9 - Acute bronchitis, unspecified Status: Acute Assessment and Plan 66-year-old female with COPD Exacerbation Severe emphysema with chronic bronchitis s/p IV steroids; Now on PO prednisone and continue Bronchodilators,Symbicort , Levaquin. BIPAP PRN @HS Appreciate input from Pulmonary medicine Maintain oxygen saturation above 92% Will do walk test prior to discharge Left upper lobe pulmonary nodule Repeat Noncontrast CT chest in 6 months Hypoosmotic euvolemic Hyponatremia. Sodium stable 137 today continue Tolvaptan 15mg daily until today 02/17/17 Atrial Fibrillation Currently rate controlled on digoxin Not on oral anticoagulation; continue aspirin 2D echo with EF 60% Hypertension. cont on nifedipine DVT Prophylaxis Continue Lovenox GI Prophylaxis Protonix Pontey,Ministerio MD Feb 17, 2017 12:16
--- NOTE | 2017-02-17 12:20 | HHI.DS ---
Discharge Summary Admission Date Feb 10, 2017 at 15:40 Discharge Date: Feb 17, 2017 Admitting Diagnosis COPD exacerbation (1) COPD exacerbation ICD Code: J44.1 - Obstructive chronic bronchitis with exacerbation Status: Acute (2) A-fib ICD Code: I48.91 - Unspecified atrial fibrillation (3) Acute bronchitis ICD Code: J20.9 - Acute bronchitis, unspecified Status: Acute Procedures none Brief History - From Admission 66F who recently spent a night at [place] for COPD exacerbation presents 3 days later with COPD exacerbation. She was unable to manage her COPD flare up at home and returns today with labored breathing. She has a 20+ year history of smoking, quit 2 weeks ago, using the patch. She denies fevers, but does admit she has had a productive cough lately. CBC/BMP: 02/17/17 0736 02/17/17 0725 Significant Findings Laboratory Tests Test 02/15/17 05:33 02/16/17 04:07 02/17/17 07:25 02/17/17 07:36 Blood Urea Nitrogen 23 MG/DL (7-18) 25 MG/DL (7-18) 25 MG/DL (7-18) Random Glucose 158 MG/DL (74-106) 112 MG/DL (74-106) Calcium Level 8.1 MG/DL (8.5-10.1) 8.4 MG/DL (8.5-10.1) Sodium Level 127 MEQ/L (136-145) Chloride Level 91 MEQ/L (98-107) Carbon Dioxide Level 32.8 MEQ/L (21.0-32.0) Anion Gap 4 MEQ/L (5-15) Mean Corpuscular Hemoglobin 26.5 PG (27.0-34.0) Mean Corpuscular Hemoglobin Concent 31.6 % (32.0-36.0) Neutrophils (%) (Auto) 82.1 % (16.0-70.0) Neutrophils # (Auto) 8.2 TH/MM3 (1.8-7.7) PE at Discharge GENERAL: NAD SKIN: Warm and dry. HEAD: Normocephalic. EYES: No scleral icterus. No injection or drainage. NECK: Supple, trachea midline. No JVD or lymphadenopathy. CARDIOVASCULAR: Regular rate and rhythm without murmurs, gallops, or rubs. RESPIRATORY: Breath sounds decrease bilaterally. No accessory muscle use. GASTROINTESTINAL: Abdomen soft, non-tender, nondistended. MUSCULOSKELETAL: No cyanosis, or edema. BACK: Nontender without obvious deformity. No CVA tenderness. Hospital Course While in hospital, patient was treated for; COPD Exacerbation Severe emphysema with chronic bronchitis She was started on IV steroids, Bronchodilators,Symbicort, Levaquin. She was also placed on BiPAP when necessary at night with consultation to [facility]. Prior to discharge she was switched to by mouth prednisone Left upper lobe pulmonary nodule Repeat Noncontrast CT chest in 6 months Hypoosmotic euvolemic Hyponatremia. She was started on Tolvaptan 15mg daily 3 days until 02/17/17. Sodium remained stable at 137 on discharge Atrial Fibrillation Currently rate controlled on digoxin Not on oral anticoagulation; she was treated with aspirin 2D echo with EF 60% Hypertension. She was treated with nifedipine DVT Prophylaxis Continue Lovenox GI Prophylaxis Protonix Pt Condition on Discharge: Stable Discharge Disposition: Disch w/ Home Health Serv Discharge Time: > 30 minutes Discharge Instructions DIET: Follow Instructions for: Heart Healthy Diet Activities you can perform: Regular-No Restrictions Ministerio Monaco MD Feb 17, 2017 12:20
== END 2017-02-17 11:59 | disposition home health service (06) | DRG 191 ==
LOC: NEPE 12:22 → NEDA 15:06 → OBSVTOIN 15:40 → N04A 17:22
PROVIDERS: ADMIT Hospitalist; ATTEND Hospitalist
PROC: 5A09357 Assistance with Respiratory Ventilation, Less than 24 Consecutive Hours, Continuous Positive Airway Pressure (ICD-10-PCS; principal; 2017-02-12)
DX: J44.1 Chronic obstructive pulmonary disease with (acute) exacerbation (principal); Z68.1 Body mass index [BMI] 19.9 or less, adult; Z99.81 Dependence on supplemental oxygen; I48.91 Unspecified atrial fibrillation; E87.1 Hypo-osmolality and hyponatremia; J44.0 Chronic obstructive pulmonary disease with (acute) lower respiratory infection; J20.9 Acute bronchitis, unspecified; R09.82 Postnasal drip; E11.9 Type 2 diabetes mellitus without complications; I10 Essential (primary) hypertension; I25.10 Atherosclerotic heart disease of native coronary artery without angina pectoris; R91.1 Solitary pulmonary nodule; R63.4 Abnormal weight loss; R00.0 Tachycardia, unspecified; K21.9 Gastro-esophageal reflux disease without esophagitis; Z79.4 Long term (current) use of insulin; Z79.51 Long term (current) use of inhaled steroids; Z87.891 Personal history of nicotine dependence; Z96.642 Presence of left artificial hip joint
CPT/HCPCS: 36600; 71010; 71045; 71275; 76937; 80048; 80069; 80162; 80307; 81001; 82550; 82552; 82805; 82948; 83735; 83880; 83930; 83935; 84300; 84443; 84484; 85025; 85610; 85730; 87040; 87070; 87205; 87449; 87804; 93005; 93306; 94003; 94618; 94640; 94664; 96365; 96372; J0456; J0696; J1650; J1815; J2920; J2930; J7030; J7040; J7050; J7512; J7611; J7626; Q9967

== ENCOUNTER 2017-07-31 19:59 | Emergency (ER) | payer OTHER ==
[~2017-07-31] VITALS: Ht 160 cm; Wt 45.0 kg
[~2017-07-31 19:59] MED LIST changes: -ALBU6.7H INH; -DOXY100T PO; -IPRA0.02 NEB; +IPRA17I INH; -IPRAAER INH; -LANTUS2P SQ; +LEVA750T9 PO; +LEVEMIR SQ; +MONT4CHW2 CHEW; +NIFE30TA8 PO; +VENTAER INH
[2017-07-31 20:15] VITALS: BP 130/61; PULSE 88; RESP 18; TEMP 98.3; O2SAT 100
[2017-07-31] MEDS ORDERED: methylPREDNISolone SOD SUCC 125 MG/2 ML VIAL IV PUSH ONE (22:15)
[2017-07-31] MEDS: RESP: ALBUTEROL 2.5 MG/IPRATROPIUM 0.5 MG NEB (SCH) INH ×2 (22:24→23:29)
--- NOTE | 2017-07-31 22:27 | PD ---
HPI Chief Complaint: Respiratory Symptoms Time Seen by Provider: 21:58 Travel History International Travel<30 days: No Contact w/Intl Traveler<30days: No Traveled to known affect area: No History of Present Illness HPI 66-year-old female that presents to the ED for evaluation of shortness of breath. Patient has a significant history of COPD continues to smoke. Per patient she is limiting her tobacco intake but she still smokes. She apparently uses inhalers at home and has been using some with minimal relief. She states that her symptoms worsen after she went to a barbecue and the smoke apparently exacerbated her symptoms. She states having cough and congestion. She states that usually she waits until he gets more severe but she wanted to hopefully come here to get treated so her symptoms do not get that bad. She states that she last used her nebulizer about 6:00 this afternoon. She denies any chest pain. No fevers chills or sweats. Cough is productive. Allergy to hydrochlorothiazide. No urinary or bowel movement issues. No recent travel. She feels like she has chest tightness. PFSH Past Medical History Hx Anticoagulant Therapy: Yes (aspirin) Arthritis: Yes Asthma: No Autoimmune Disease: No Blood Disorders: No Anxiety: No Depression: No Heart Rhythm Problems: No Cancer: No Cardiovascular Problems: Yes (HTN, HYPERCHOLESTEROLIMIA, A-FIB) High Cholesterol: No Chemotherapy: No Chest Pain: No Congestive Heart Failure: No COPD: Yes Cerebrovascular Accident: Yes (afib) Coronary Artery Disease: No Diabetes: Yes Patient Takes Glucophage: No Diminished Hearing: No Endocrine: No Gastrointestinal Disorders: Yes (acid reflux, hyperacidity) GERD: Yes Genitourinary: No Headaches: Yes Hiatal Hernia: No Hypertension: Yes Immune Disorder: No Implanted Vascular Access Dvce: Yes Kidney Stones: No Musculoskeletal: No Neurologic: No Psychiatric: No Reproductive: No Respiratory: Yes (COPD) Immunizations Current: No Migraines: No Pneumonia: Yes Radiation Therapy: No Renal Failure: No Seizures: No Sickle Cell Disease: No Sleep Apnea: No Thyroid Disease: No Ulcer: No Menopausal: Yes : 3 Para: 3 Miscarriage: 0 : 0 Past Surgical History Abdominal Surgery: No AICD: No Arteriovenous Shunt: No Body Medical Devices: LEFT HIP REPLACEMENT Cardiac Surgery: No Section: Yes Ear Surgery: No Endocrine Surgery: No Eye Surgery: No Genitourinary Surgery: No Gynecologic Surgery: No Hysterectomy: Yes Insulin Pump: No Joint Replacement: Yes (LEFT HIP REPLACEMENT) Oral Surgery: No Pacemaker: No Thoracic Surgery: No Other Surgery: Yes (left hand ligament repair) Family History Family Hypercholesterolemia: Yes Social History Alcohol Use: Yes (special occasions) Tobacco Use: Yes (4 CIGS/DAY) Substance Use: No Allergies-Medications (Allergen,Severity, Reaction): Coded Allergies: hydrochlorothiazide (Verified Adverse Reaction, Mild, Nausea and Malaise, 07/31/17) Pt does not want to take Reported Meds & Prescriptions Reported Meds & Active Scripts Active Prednisone 20 Mg Tab 20 Mg PO BID 5 Days Azithromycin 250 Mg Tab 250 Mg PO DIRECTED Take 2 tabs (500 mg) on day 1 then 1 tab daily x 4 days. Levemir Inj (Insulin Detemir) 1,000 unit/ 10 ML Vial 8 Units SQ Q12HR Do not mix with any other Insulin. Ventolin Hfa 18 GM Inh (Albuterol Sulfate) 90 Mcg/Act Aer 2 Puff INH Q4-6H PRN Atrovent HFA 12.9 GM Inh (Ipratropium [place]) 17 Mcg/Actuation Aer 2 Puff INH Q6HR PRN Prednisone 20 Mg Tab 20 Mg PO BID Singulair (Montelukast Sodium) 4 Mg Chew 4 Mg CHEW HS [Budeson-Formot 160-4.5 Mcg Inh] 60 PUFF Aero 2 Puff INH Q12HR Nifedipine ER 24 HR (Nifedipine) 30 Mg Tab 30 Mg PO DAILY Levaquin (Levofloxacin) 750 Mg Tablet 750 Mg PO DAILY [Budeson-Formot 160-4.5 Mcg Inh] 60 PUFF Aero 2 Puff INH Q12HR Lisinopril 20 Mg Tab 40 Mg PO DAILY Digoxin 0.25 Mg Tab 0.25 Mg PO DAILY Flonase Nasal [place] (Fluticasone Nasal [place]) 50 Mcg/Act [place] 100 Mcg EACH NARE BID Pretty Allergy (Fexofenadine HCl) 60 Mg Tab 60 Mg PO BID Tessalon Perles (Benzonatate) 100 Mg Cap 100 Mg PO TID PRN Melatonin 10 Mg Tab 10 Mg PO HS PRN Reported Simvastatin 20 Mg Tab 20 Mg PO DAILY Protonix (Pantoprazole Sodium) 20 Mg Tab 20 Mg PO DAILY Aspirin Low Dose (Aspirin) 81 Mg Chew 81 Mg CHEW DAILY Review of Systems Except as stated in HPI: all other systems reviewed are Neg Physical Exam Narrative GENERAL: Well-nourished, well-developed patient in no apparent distress. SKIN: Warm and dry. HEAD: Atraumatic. Normocephalic. EYES: Pupils equal and round reactive to light and accommodation. No scleral icterus. No injection or drainage. ENT: No nasal bleeding or discharge. Mucous membranes pink and moist. TMs are clear with no sign of infection or perforation. No mastoid tenderness. Ear canals are intact bilaterally. No lymphadenopathy. Nostril mucosa is red and moist with clear mucus noted. No sinus tenderness to palpation noted. Tonsils are not enlarged or swollen. No ulvua Deviation. Tongue is midline. NECK: Trachea midline. No JVD. No meningeal signs noted CARDIOVASCULAR: Regular rate and rhythm. RESPIRATORY: No accessory muscle use. Wheezing heard in all lung grubbs. Breath sounds equal bilaterally. GASTROINTESTINAL: Abdomen soft, non-tender, nondistended. Hepatic and splenic margins not palpable. MUSCULOSKELETAL: Extremities without clubbing, cyanosis, or edema. No obvious deformities. Full range of motion of the upper and lower extremities bilaterally. 2+ pulses bilaterally. NEUROLOGICAL: Awake and alert. No obvious cranial nerve deficits. Motor grossly within normal limits. Five out of 5 muscle strength in the arms and legs. Normal speech. PSYCHIATRIC: Appropriate mood and affect; insight and judgment normal. Data Data Last Documented VS Vital Signs Date Time Temp Pulse Resp B/P (MAP) Pulse Ox O2 Delivery O2 Flow Rate FiO2 07/31/17 20:15 98.3 88 18 130/61 (84) 100 Orders Orders Chest, Single Ap (07/31/17 22:09) Methylprednisolone So Succ Inj (Solumedr (07/31/17 22:15) Albuterol-Ipratropium Neb (Duoneb Neb) (07/31/17 22:15) [facility] Medical Decision Making Medical Screen Exam Complete: Yes Emergency Medical Condition: Yes Medical Record Reviewed: Yes Interpretation(s) Last Impressions Chest X-Ray 07/31/17 9550 Signed Impressions: CONCLUSION: No acute findings. Differential Diagnosis COPD exacerbation versus COPD versus pneumonia versus asthma Narrative Course 66-year-old female that presents to the ED for evaluation of shortness of breath. Patient was properly examined and was found to have signs and symptoms consistent appears to be shortness of breath likely from COPD exacerbation. Imaging order. Patient was given IV Solu-Medrol as well as DuoNeb's. Patient will be reassessed. Patient still wheezing some, but improved. Will give more duonebs and reassess. Case signed out to my attending pending disposition and plan. Scripts Prednisone (Prednisone) 20 Mg Tab 20 MG PO BID for 5 Days, #10 TAB 0 Refills Prov: Siobhan Tejeda MD 07/31/17 Azithromycin (Azithromycin) 250 Mg Tab 250 MG PO DIRECTED for Infection, #6 TAB 0 Refills Take 2 tabs (500 mg) on day 1 then 1 tab daily x 4 days. Prov: Siobhan Tejeda MD 07/31/17 Selvin Sherwood Jul 31, 2017 22:27
--- NOTE | 2017-07-31 22:44 | RADRPT ---
EXAM DATE: 07/31/2017 10:35 PM EDT AGE/SEX: 66 years / Female INDICATIONS: Short of breath. CLINICAL DATA: This is the patient's initial encounter. Patient reports that signs and symptoms have been present for 1 day and indicates a pain score of 0/10. MEDICAL/SURGICAL HISTORY: Hypertension. Chronic obstructive pulmonary disease. Diabetes melli tus type II. None. COMPARISON: [facility] [place], CHEST SINGLE AP, 02/14/2017. . FINDINGS: A single AP view of the chest demonstrates the lungs to be symmetrically aerated without evidence of mass, infiltrate or effusion. The cardiomediastinal contours are unremarkable. Osseous structures a re intact. CONCLUSION: No acute findings. Electronically signed by: Panfilo Hanley MD 07/31/2017 10:42 PM EDT
[2017-07-31] MEDS ORDERED: PRED20 PO (22:56)
[2017-07-31] MEDS ORDERED: AZIT250T3 PO (22:56)
--- NOTE | 2017-07-31 23:19 | PD ---
Physical Exam Narrative General: The patient is a well-developed well-nourished female in no acute distress. Sleeping on my arrival to the room after a nebulizer treatment. O2 saturations on room air are 97%, heart rate is in the 90s. Head and Neck exam: Head is normocephalic atraumatic. Eyes: EOMI, pupils are equal round and reactive to light. Nose: Midline septum with pink mucous membranes Mouth: Dentition unremarkable. Moist mucus membranes. Posterior oropharynx is not erythematous. No tonsillar hypertrophy. Uvula midline. Airway patent. Neck: No palpable lymphadenopathy. No nuchal rigidity. No thyromegaly. Cardiovascular: Regular rate and rhythm without murmurs, gallops, or rubs. No pulse deficit to the extremities on simultaneous auscultation and palpation of her radial artery. Lungs: Clear to auscultation bilaterally. No wheezes, rhonchi, or rales. Abdomen: Soft, without tenderness to palpation in all 4 quadrants of the abdomen. No guarding, rebound, or rigidity. Normal bowel sounds are audible. No tenderness on palpation of McBurney's point. Extremities: No clubbing, cyanosis, or edema. No calf tenderness on palpation. Neurologic Exam: Grossly nonfocal. Skin Exam: No rash noted. Intact skin that is warm and dry. Data Data Last Documented VS Vital Signs Date Time Temp Pulse Resp B/P (MAP) Pulse Ox O2 Delivery O2 Flow Rate FiO2 07/31/17 20:15 98.3 88 18 130/61 (84) 100 Orders Orders Chest, Single Ap (07/31/17 22:09) Methylprednisolone So Succ Inj (Solumedr (07/31/17 22:15) Albuterol-Ipratropium Neb (Duoneb Neb) (07/31/17 22:15) Albuterol-Ipratropium Neb (Duoneb Neb) (07/31/17 23:15) [facility] Medical Record Reviewed: Yes Supervised Visit with RADHA: Yes Narrative Course I, Dr. Tejeda, have reviewed the advance practice practitioner's documentation and am in agreement, met with the patient face to face, made the diagnosis, and the medical decision making was done by me. The patient was initially evaluated by Bon, the physician graduate assistant. Please see their complete history and physical. *My assessment and Findings: The patient presents with shortness of breath after barbecue smoke exposure. The patient has a known history of COPD. The patient continues to smoke During the course of the patient's emergency department visit, the patient's history, examination, and differential diagnosis were reviewed with the patient. The patient was placed on a network announcer with oximetry and frequent blood pressure monitoring. The patient had IV access obtained and blood work sent for analysis. The patient was initially provided Solu-Medrol 125 mg IV, DuoNeb 3. Radiology studies were reviewed and remarkable for Last Impressions Chest X-Ray 07/31/17 2209 Signed Impressions: CONCLUSION: No acute findings. The patient will be discharged home with a prescription for ProAir rescue inhaler, Medrol Dosepak taper, Ceftin, antibiotic coverage for bronchitis related to COPD. The patient is resting comfortably and feels better, is alert and in no distress. The patient's results and examination findings were discussed with the patient. The repeat examination is unremarkable and benign. The history, exam, diagnostic testing, and current condition do not suggest any significant pathology to warrant further testing, continued ED treatment, admission, or surgical evaluation at this point. The vital signs have been stable. The patient does not have uncontrollable pain, intractable vomiting, or other significant symptoms. The patient's condition is stable and appropriate for discharge. The patient will pursue further outpatient evaluation with a primary care physician or other designated or consulting physician as indicated in the discharge instructions. The patient is instructed to report back to the emergency department immediately for reexamination in the mean time if she develops any new or worsening signs or symptoms. The patient expressed understanding and was agreeable with this plan. Diagnosis Primary Impression: COPD exacerbation Referrals: Primary Care Physician 2 days Patient Instructions: COPD (Chronic Obstructive Pulmonary Disease) (ED), General Instructions Med/Other Pt SpecificInfo: Prescription(s) given Scripts Cefuroxime (Cefuroxime) 500 Mg Tab 500 MG PO BID for Infection, #14 TAB 0 Refills Prov: Siobhan Tejeda MD 08/01/17 Methylprednisolone Dosepak (Medrol Dosepak) 4 Mg Dspk 4 MG PO DIRECTED, #1 DSPK 0 Refills Per Pharmacist direction Prov: Siobahn Tejeda MD 08/01/17 Albuterol Powder Inh (Proair Respiclick Inh) 90 Mcg/Act Aerp 2 PUFF INH Q4-6H Y for SHORTNESS OF BREATH, #1 INHALER 0 Refills Prov: Siobhan Tejeda MD 08/01/17 Prednisone (Prednisone) 20 Mg Tab 20 MG PO BID for 5 Days, #10 TAB 0 Refills Prov: Siobhan Tejeda MD 07/31/17 Azithromycin (Azithromycin) 250 Mg Tab 250 MG PO DIRECTED for Infection, #6 TAB 0 Refills Take 2 tabs (500 mg) on day 1 then 1 tab daily x 4 days. Prov: Siobhan Tejeda MD 07/31/17 Disposition: 01 DISCHARGE HOME Condition: Stable Siobhan Tejeda MD Jul 31, 2017 23:19
[2017-08-01] MEDS ORDERED: MEDR4PAK PO (00:38)
[2017-08-01] MEDS ORDERED: ALBU1AER5 INH (00:38)
[2017-08-01] MEDS ORDERED: CEFU1TAB20 PO (00:38)
== END 2017-08-01 01:55 | disposition home or self-care (01) ==
LOC: NEPE 19:59 → NED 19:59 → NEPE 08-01 01:55
DX: J44.1 Chronic obstructive pulmonary disease with (acute) exacerbation (principal); R05 Cough; R07.89 Other chest pain; M19.90 Unspecified osteoarthritis, unspecified site; I48.91 Unspecified atrial fibrillation; I10 Essential (primary) hypertension; K21.9 Gastro-esophageal reflux disease without esophagitis; Z72.0 Tobacco use
CPT/HCPCS: 71045; 94640; 94664; 96374; 99284; J2930

== ENCOUNTER 2018-02-02 04:30 | Inpatient (IN) ==
[2018-02-02] MEDS ORDERED: MethylPREDNISolone Sod Succinate Inj 125 MG/2 ML Vial IV.PUSH ONE (04:33)
[2018-02-02] MEDS ORDERED: Acetaminophen 325 MG Tablet PO ONE (04:46)
[2018-02-02] MEDS ORDERED: Morphine Inj 4 MG/ML Vial IV.PUSH ONE (04:48)
[2018-02-02] MEDS ORDERED: Sod Chloride 0.9% Inj 1,000 ML IV.SIG SCH (05:00)
[2018-02-02] MEDS ORDERED: Sod Chloride 0.9% Inj 800 ML IV.SIG SCH (05:00)
--- NOTE | 2018-02-02 05:01 | ED ---
HPI General Chief Complaint: Respiratory Symptoms Stated Complaint: Diff breathing Time Seen by Provider: 02/02/18 04:32 Source: patient Mode of arrival: EMS Limitations: no limitations History of Present Illness HPI Narrative: 67 yo F c/o dyspnea and wheezing. Duration approximately 1 days. EMS reports o2 sats in 80s increased to high 90s with nebulizer treatments. Pt denies CP. + Similar prior episodes with today's feeling worse. No n/v/d. Cough is also present. PMH atrial fibrillation, HTN, HLD, DM, COPD. Related Data Home Medications Medication Instructions Recorded Confirmed albuterol sulfate 2 puff INHALATION Q4H PRN 08/17/17 02/02/18 aspirin [Aspir-81] 81 mg PO DAILY 08/17/17 02/02/18 cyanocobalamin (vitamin B-12) 1,000 mcg PO WEEKLY 08/17/17 02/02/18 [Vitamin B-12] digoxin [Digox] 0.25 mg PO DAILY 08/17/17 02/02/18 fluticasone 2 spray INTRANASAL DAILY 08/17/17 02/02/18 insulin detemir U-100 [Levemir 8 unit SUB-Q BID 08/17/17 02/02/18 U-100 Insulin] lisinopril 20 mg PO DAILY 08/17/17 02/02/18 pantoprazole [Protonix] 20 mg PO DAILY 08/17/17 02/02/18 albuterol sulfate [ProAir HFA] 1 puff INHALATION Q4-6H PRN 09/17/17 02/02/18 budesonide-formoterol [Symbicort] 2 puff INHALATION BID 09/17/17 02/02/18 diltiazem HCl 120 mg PO DAILY 09/17/17 02/02/18 gabapentin 300 mg PO BID 09/17/17 02/02/18 ibuprofen 600 mg PO TID PRN 09/17/17 02/02/18 ipratropium bromide [Atrovent HFA] 1 puff INHALATION Q6H 09/17/17 02/02/18 ranitidine HCl 150 mg PO DAILY 09/17/17 02/02/18 Previous Rx's Medication Instructions Recorded albuterol sulfate 1.25 mg INHALATION Q4-8H PRN #75 ml 09/21/17 azithromycin 250 mg PO DAILY #6 tab 09/21/17 albuterol sulfate [ProAir HFA] 2 inh INHALATION Q4H PRN #8 g 10/10/17 azithromycin See Label Instructions .ROUTE 10/10/17 .COMPLEX #6 tab benzonatate [Tessalon Perles] 200 mg PO TID PRN #14 cap 10/10/17 Allergies Allergy/AdvReac Type Severity Reaction Status Date / Time hydrochlorothiazide AdvReac Mild Nausea and Verified 02/02/18 04:44 Malaise Review of Systems ROS: all other systems reviewed are negative [facility] Medical History Medical History Atrial fibrillation (Acute) HTN (hypertension) (Acute) Hyperlipidemia (Acute) Diabetes (Acute) Emphysema lung (Acute) COPD (chronic obstructive pulmonary disease) (Acute) Surgical History Surgical History History of tubal ligation (Acute) Social History Social History Substance History: No History of Abuse Second Hand Smoke Exposure: Yes Smoking Status: Unknown if ever smoked Tobacco Type: Cigarettes How Often Do You Have a Drink Containing Alcohol: Unable to Obtain Exam Narrative Exam Narrative: GENERAL: 67 yo F, thin, conversation dyspnea SKIN: Focused skin assessment warm/dry. HEAD: Atraumatic. Normocephalic. EYES: Pupils equal and round. No scleral icterus. No injection or drainage. ENT: No nasal bleeding or discharge. Mucous membranes pink and moist. NECK: Trachea midline. No JVD. CARDIOVASCULAR: Rate approx 130s. Irregular. RESPIRATORY: Tachypnea. Wheezing present bilaterally. GASTROINTESTINAL: Abdomen soft, non-tender, nondistended. Hepatic and splenic margins not palpable. MUSCULOSKELETAL: No obvious deformities. No clubbing. No cyanosis. No edema. NEUROLOGICAL: Awake and alert. No obvious cranial nerve deficits. Motor grossly within normal limits. Normal speech. PSYCHIATRIC: Appropriate mood and affect; insight and judgment normal. Course Initial Documented Vital Signs Temperature 99.9 F H 02/02/18 04:39 Pulse Rate 133 H 02/02/18 04:39 Respiratory Rate 24 02/02/18 04:39 Blood Pressure 196/80 H 02/02/18 04:39 Pulse Oximetry 100 02/02/18 04:39 Last Documented Vital Signs Temperature 99.0 F 02/03/18 04:00 Pulse Rate 83 02/03/18 15:00 Respiratory Rate 14 02/03/18 15:42 Blood Pressure 134/54 L 02/03/18 04:00 Pulse Oximetry 97 02/03/18 12:00 Medical Decision Making MDM Narrative Medical Screen Exam Complete: Yes Emergency Medical Condition: Yes Lab Data Lab results narrative: WBC at 11.3 with 10% band neurophils CMP normal CXR clear Influenza assay negative Pt with tachycardia to 130s at 650AM with persistent dyspnea after three round duoneb and IV steroids. Rocephin/Azizthro started Blood cultures drawn Call to [facility] at 650Am PT with persistent dyspnea at 710AM. Pt sitting upright on bed speaking in sentences. Pt reports improvement with BIPAP in past and felt it would be beneficial now so it was ordered. Additional albuterol/ipratropium nebs ordered as well. d/w Dr Sung for [facility] at 710AM. Result diagrams: 02/03/18 04:26 02/03/18 04:26 Lab Results 02/02/18 02/02/18 02/02/18 Range/Units 05:25 05:25 05:25 WBC 11.3 H (4.0-11.0) th/mm3 RBC 4.18 (4.00-5.30) mil/mm3 Hgb 11.9 (11.6-15.3) gm/dL Hct 36.7 (35.0-46.0) % MCV 87.9 (80.0-100.0) fL MCH 28.4 (27.0-34.0) pg MCHC 32.3 (32.0-36.0) % RDW 18.1 H (11.6-17.2) % Plt Count 270 (150-450) th/mm3 MPV 9.4 (7.0-11.0) fL Prelim Diff (Auto) Slide review pending Neut % (Auto) 82.9 H (16.0-70.0) % Lymph % (Auto) 9.9 (9.0-44.0) % [place] % (Auto) 6.0 (0.0-8.0) % Eos % (Auto) 0.6 (0.0-4.0) % Baso % (Auto) 0.6 (0.0-2.0) % Neut # (Auto) 9.4 H (1.8-7.7) th/mm3 Lymph # (Auto) 1.1 (1.0-4.8) th/mm3 [place] # (Auto) 0.7 (0.0-0.9) th/mm3 Eos # (Auto) 0.1 (0.0-0.4) th/mm3 Baso # (Auto) 0.1 (0.0-0.2) th/mm3 WBC Differential Manual diff final Seg Neuts % (Manual) 78 H (16-70) % Band Neuts % (Manual) 10 H (0-6) % Lymphocytes % (Manual) 6 L (9-44) % Monocytes % (Manual) 5 (0-8) % Myelocytes % (Man) 1 H (0-0) % Abs Neuts (Manual) 10.1 H (1.8-7.7) th/mm3 Differential Comment . Platelet Estimate Normal (Normal) Platelet Morphology Normal (Normal) Puncture Site Patient Temperature O2 Saturation (90-100) % ABG pH (7.380-7.420) ABG pCO2 (38-42) mmHg ABG pO2 (61-120) mmHg ABG HCO3 (22-26) mmol/L ABG O2 Content (12.0-20.0) Vol % ABG Base Excess (-2-2) mmol/L ABG Methemoglobin (0-2) % David Test Hemoglobin (12.0-16.0) G/DL Carboxyhemoglobin (0-4) % O2 Delivery Device Vent Setting Inspired O2 % Critical Value Sodium 139 (136-145) meq/L Potassium 3.4 L (3.5-5.1) meq/L Chloride 105 (98-107) meq/L Carbon Dioxide 28.8 (21.0-32.0) meq/L Anion Gap 5 (5-15) meq/L BUN 9 (7-18) mg/dL Creatinine 0.85 (0.50-1.00) mg/dL Estimated GFR 81 L (>89) mL/min POC Glucose (68-110) mg/dl Random Glucose 68 L (74-106) mg/dL Lactic Acid 0.9 (0.4-2.0) mmol/L Calcium 8.7 (8.5-10.1) mg/dL Calcium Adj for Albumin (8.5-10.1) mg/dL Magnesium 1.9 (1.5-2.5) mg/dL Total Bilirubin 0.3 (0.2-1.0) mg/dL AST 25 (15-37) U/L ALT 27 (10-53) U/L Alkaline Phosphatase 91 (45-117) U/L Total Protein 7.2 (6.4-8.2) g/dL Albumin 3.4 (3.4-5.0) g/dL 02/02/18 02/02/18 02/02/18 Range/Units 08:45 11:53 19:11 WBC (4.0-11.0) th/mm3 RBC (4.00-5.30) mil/mm3 Hgb (11.6-15.3) gm/dL Hct (35.0-46.0) % MCV (80.0-100.0) fL MCH (27.0-34.0) pg MCHC (32.0-36.0) % RDW (11.6-17.2) % Plt Count (150-450) th/mm3 MPV (7.0-11.0) fL Prelim Diff (Auto) Neut % (Auto) (16.0-70.0) % Lymph % (Auto) (9.0-44.0) % [place] % (Auto) (0.0-8.0) % Eos % (Auto) (0.0-4.0) % Baso % (Auto) (0.0-2.0) % Neut # (Auto) (1.8-7.7) th/mm3 Lymph # (Auto) (1.0-4.8) th/mm3 [place] # (Auto) (0.0-0.9) th/mm3 Eos # (Auto) (0.0-0.4) th/mm3 Baso # (Auto) (0.0-0.2) th/mm3 WBC Differential Seg Neuts % (Manual) (16-70) % Band Neuts % (Manual) (0-6) % Lymphocytes % (Manual) (9-44) % Monocytes % (Manual) (0-8) % Myelocytes % (Man) (0-0) % Abs Neuts (Manual) (1.8-7.7) th/mm3 Differential Comment Platelet Estimate (Normal) Platelet Morphology (Normal) Puncture Site Right radial Right femoral Patient Temperature 98.6 98.6 O2 Saturation 91 98 (90-100) % ABG pH 7.32 L 7.40 (7.380-7.420) ABG pCO2 52 H* 34 L (38-42) mmHg ABG pO2 72 559 H (61-120) mmHg ABG HCO3 26 21 L (22-26) mmol/L ABG O2 Content 14.1 17.8 (12.0-20.0) Vol % ABG Base Excess 0.5 -3.1 L (-2-2) mmol/L ABG Methemoglobin 0.5 1.7 (0-2) % David Test Y Hemoglobin 11.0 L 11.9 L (12.0-16.0) G/DL Carboxyhemoglobin 1.3 0.6 (0-4) % O2 Delivery Device Bipap Ventilator Vent Setting 15ipap/6epap 14/600/peep5/it0.75 Inspired O2 50 100 % Critical Value Yes No Sodium (136-145) meq/L Potassium (3.5-5.1) meq/L Chloride (98-107) meq/L Carbon Dioxide (21.0-32.0) meq/L Anion Gap (5-15) meq/L BUN (7-18) mg/dL Creatinine (0.50-1.00) mg/dL Estimated GFR (>89) mL/min POC Glucose 85 (68-110) mg/dl Random Glucose (74-106) mg/dL Lactic Acid (0.4-2.0) mmol/L Calcium (8.5-10.1) mg/dL Calcium Adj for Albumin (8.5-10.1) mg/dL Magnesium (1.5-2.5) mg/dL Total Bilirubin (0.2-1.0) mg/dL AST (15-37) U/L ALT (10-53) U/L Alkaline Phosphatase (45-117) U/L Total Protein (6.4-8.2) g/dL Albumin (3.4-5.0) g/dL 02/02/18 02/02/18 02/03/18 Range/Units 21:07 23:55 04:26 WBC 10.3 (4.0-11.0) th/mm3 RBC 3.32 L (4.00-5.30) mil/mm3 Hgb 9.6 L D (11.6-15.3) gm/dL Hct 28.9 L (35.0-46.0) % MCV 87.0 (80.0-100.0) fL MCH 28.9 (27.0-34.0) pg MCHC 33.2 (32.0-36.0) % RDW 17.9 H (11.6-17.2) % Plt Count 229 (150-450) th/mm3 MPV 8.5 (7.0-11.0) fL Prelim Diff (Auto) Neut % (Auto) 94.3 H (16.0-70.0) % Lymph % (Auto) 2.1 L (9.0-44.0) % [place] % (Auto) 3.5 (0.0-8.0) % Eos % (Auto) 0.0 (0.0-4.0) % Baso % (Auto) 0.1 (0.0-2.0) % Neut # (Auto) 9.7 H (1.8-7.7) th/mm3 Lymph # (Auto) 0.2 L (1.0-4.8) th/mm3 [place] # (Auto) 0.4 (0.0-0.9) th/mm3 Eos # (Auto) 0.0 (0.0-0.4) th/mm3 Baso # (Auto) 0.0 (0.0-0.2) th/mm3 WBC Differential . Seg Neuts % (Manual) (16-70) % Band Neuts % (Manual) (0-6) % Lymphocytes % (Manual) (9-44) % Monocytes % (Manual) (0-8) % Myelocytes % (Man) (0-0) % Abs Neuts (Manual) (1.8-7.7) th/mm3 Differential Comment Auto diff final Platelet Estimate (Normal) Platelet Morphology (Normal) Puncture Site Patient Temperature O2 Saturation (90-100) % ABG pH (7.380-7.420) ABG pCO2 (38-42) mmHg ABG pO2 (61-120) mmHg ABG HCO3 (22-26) mmol/L ABG O2 Content (12.0-20.0) Vol % ABG Base Excess (-2-2) mmol/L ABG Methemoglobin (0-2) % David Test Hemoglobin (12.0-16.0) G/DL Carboxyhemoglobin (0-4) % O2 Delivery Device Vent Setting Inspired O2 % Critical Value Sodium (136-145) meq/L Potassium (3.5-5.1) meq/L Chloride (98-107) meq/L Carbon Dioxide (21.0-32.0) meq/L Anion Gap (5-15) meq/L BUN (7-18) mg/dL Creatinine (0.50-1.00) mg/dL Estimated GFR (>89) mL/min POC Glucose 136 H 165 H (68-110) mg/dl Random Glucose (74-106) mg/dL Lactic Acid (0.4-2.0) mmol/L Calcium (8.5-10.1) mg/dL Calcium Adj for Albumin (8.5-10.1) mg/dL Magnesium (1.5-2.5) mg/dL Total Bilirubin (0.2-1.0) mg/dL AST (15-37) U/L ALT (10-53) U/L Alkaline Phosphatase (45-117) U/L Total Protein (6.4-8.2) g/dL Albumin (3.4-5.0) g/dL 02/03/18 02/03/18 02/03/18 Range/Units 04:26 06:05 11:50 WBC (4.0-11.0) th/mm3 RBC (4.00-5.30) mil/mm3 Hgb (11.6-15.3) gm/dL Hct (35.0-46.0) % MCV (80.0-100.0) fL MCH (27.0-34.0) pg MCHC (32.0-36.0) % RDW (11.6-17.2) % Plt Count (150-450) th/mm3 MPV (7.0-11.0) fL Prelim Diff (Auto) Neut % (Auto) (16.0-70.0) % Lymph % (Auto) (9.0-44.0) % [place] % (Auto) (0.0-8.0) % Eos % (Auto) (0.0-4.0) % Baso % (Auto) (0.0-2.0) % Neut # (Auto) (1.8-7.7) th/mm3 Lymph # (Auto) (1.0-4.8) th/mm3 [place] # (Auto) (0.0-0.9) th/mm3 Eos # (Auto) (0.0-0.4) th/mm3 Baso # (Auto) (0.0-0.2) th/mm3 WBC Differential Seg Neuts % (Manual) (16-70) % Band Neuts % (Manual) (0-6) % Lymphocytes % (Manual) (9-44) % Monocytes % (Manual) (0-8) % Myelocytes % (Man) (0-0) % Abs Neuts (Manual) (1.8-7.7) th/mm3 Differential Comment Platelet Estimate (Normal) Platelet Morphology (Normal) Puncture Site Patient Temperature O2 Saturation (90-100) % ABG pH (7.380-7.420) ABG pCO2 (38-42) mmHg ABG pO2 (61-120) mmHg ABG HCO3 (22-26) mmol/L ABG O2 Content (12.0-20.0) Vol % ABG Base Excess (-2-2) mmol/L ABG Methemoglobin (0-2) % David Test Hemoglobin (12.0-16.0) G/DL Carboxyhemoglobin (0-4) % O2 Delivery Device Vent Setting Inspired O2 % Critical Value Sodium 140 (136-145) meq/L Potassium 3.0 L (3.5-5.1) meq/L Chloride 108 H (98-107) meq/L Carbon Dioxide 18.8 L D (21.0-32.0) meq/L Anion Gap 13 (5-15) meq/L BUN 20 H (7-18) mg/dL Creatinine 0.98 (0.50-1.00) mg/dL Estimated GFR 68 L (>89) mL/min POC Glucose 263 H 247 H (68-110) mg/dl Random Glucose 188 H D (74-106) mg/dL Lactic Acid (0.4-2.0) mmol/L Calcium 6.5 L* D (8.5-10.1) mg/dL Calcium Adj for Albumin 7.8 L (8.5-10.1) mg/dL Magnesium (1.5-2.5) mg/dL Total Bilirubin 0.2 (0.2-1.0) mg/dL AST 27 (15-37) U/L ALT 21 (10-53) U/L Alkaline Phosphatase 68 (45-117) U/L Total Protein 5.2 L D (6.4-8.2) g/dL Albumin 2.4 L D (3.4-5.0) g/dL 02/03/18 Range/Units 18:07 WBC (4.0-11.0) th/mm3 RBC (4.00-5.30) mil/mm3 Hgb (11.6-15.3) gm/dL Hct (35.0-46.0) % MCV (80.0-100.0) fL MCH (27.0-34.0) pg MCHC (32.0-36.0) % RDW (11.6-17.2) % Plt Count (150-450) th/mm3 MPV (7.0-11.0) fL Prelim Diff (Auto) Neut % (Auto) (16.0-70.0) % Lymph % (Auto) (9.0-44.0) % [place] % (Auto) (0.0-8.0) % Eos % (Auto) (0.0-4.0) % Baso % (Auto) (0.0-2.0) % Neut # (Auto) (1.8-7.7) th/mm3 Lymph # (Auto) (1.0-4.8) th/mm3 [place] # (Auto) (0.0-0.9) th/mm3 Eos # (Auto) (0.0-0.4) th/mm3 Baso # (Auto) (0.0-0.2) th/mm3 WBC Differential Seg Neuts % (Manual) (16-70) % Band Neuts % (Manual) (0-6) % Lymphocytes % (Manual) (9-44) % Monocytes % (Manual) (0-8) % Myelocytes % (Man) (0-0) % Abs Neuts (Manual) (1.8-7.7) th/mm3 Differential Comment Platelet Estimate (Normal) Platelet Morphology (Normal) Puncture Site Patient Temperature O2 Saturation (90-100) % ABG pH (7.380-7.420) ABG pCO2 (38-42) mmHg ABG pO2 (61-120) mmHg ABG HCO3 (22-26) mmol/L ABG O2 Content (12.0-20.0) Vol % ABG Base Excess (-2-2) mmol/L ABG Methemoglobin (0-2) % David Test Hemoglobin (12.0-16.0) G/DL Carboxyhemoglobin (0-4) % O2 Delivery Device Vent Setting Inspired O2 % Critical Value Sodium (136-145) meq/L Potassium (3.5-5.1) meq/L Chloride (98-107) meq/L Carbon Dioxide (21.0-32.0) meq/L Anion Gap (5-15) meq/L BUN (7-18) mg/dL Creatinine (0.50-1.00) mg/dL Estimated GFR (>89) mL/min POC Glucose 213 H (68-110) mg/dl Random Glucose (74-106) mg/dL Lactic Acid (0.4-2.0) mmol/L Calcium (8.5-10.1) mg/dL Calcium Adj for Albumin (8.5-10.1) mg/dL Magnesium (1.5-2.5) mg/dL Total Bilirubin (0.2-1.0) mg/dL AST (15-37) U/L ALT (10-53) U/L Alkaline Phosphatase (45-117) U/L Total Protein (6.4-8.2) g/dL Albumin (3.4-5.0) g/dL Imaging Data Radiologist's impression: Chest X-Ray 02/02/18 00:00 CONCLUSION: 1. Minimal blunting of the costophrenic recesses consistent with possible tiny pleural effusions or pleural thickening. 2. No focal infiltrate or pulmonary vascular congestion. 3. Endotracheal tube in good position 2 cm above the vinicio. Chest X-Ray 02/02/18 04:33 CONCLUSION: The lungs are clear. Chest X-Ray 02/03/18 00:00 CONCLUSION: Lungs are clear. ET tube in good position. Discharge Plan Discharge Disposition Patient Disposition: ED Admit(ED Internal Use Only) Discharge Condition Condition: Stable Discharge Order Discharge Orders: ED Use Only Admit Order (Routine); Ordered 02/02/18 Ordered By: Ellis Yadav Physicians Team ED Provider: Ellis Yadav Primary Care Provider: MARCIO, Attending Provider: John Bloom Other Providers: Wolf Prieto V ; John Bloom ; [employer] Status ED Status: Left Department Discharge Information Discharge Date/Time: 02/02/18 13:06
--- NOTE | 2018-02-02 05:22 | XR ---
EXAM DATE: 02/02/2018 4:54 AM EST AGE/SEX: 67 years / Female INDICATIONS: Dyspnea. CLINICAL DATA: This is the patient's initial encounter. Patient reports that signs and symptoms have been present for 1 day and indicates a pain score of 3/10. MEDICAL/SURGICAL HISTORY: Diabetes mellitus type II. Chronic obstructive pulmonary disease. Ast hma. Hypertension. Smoker. High blood pressure. High cholesterol. A-Fib. None. [place] [facility] [place]. . FINDINGS: A single AP view of the chest demonstrates the lungs to be symmetrically aerated without evidence of mass, infiltrate or effusion. The cardiomediastinal contours are unremarkable. Osseous structures a re intact. CONCLUSION: The lungs are clear. Electronically signed by: Arsen Chiang MD Board Certified Radiologist 02/02/2018 5:20 AM EST
[2018-02-02 05:47] LABS: Baso # (Auto) 0.1 th/mm3 (0.0-0.2); Baso % (Auto) 0.6 % (0.0-2.0); Eos # (Auto) 0.1 th/mm3 (0.0-0.4); Eos % (Auto) 0.6 % (0.0-4.0); Hematocrit 36.7 % (35.0-46.0); Hemoglobin 11.9 gm/dL (11.6-15.3); Lymph # (Auto) 1.1 th/mm3 (1.0-4.8); Lymph % (Auto) 9.9 % (9.0-44.0); Mean Corpuscular HGB Conc 32.3 % (32.0-36.0); Mean Corpuscular Hemoglobin 28.4 pg (27.0-34.0); Mean Corpuscular Volume 87.9 fL (80.0-100.0); Mean Platelet Volume 9.4 fL (7.0-11.0); Mono # (Auto) 0.7 th/mm3 (0.0-0.9); Neut # (Auto) 9.4 th/mm3 (1.8-7.7); Neut % (Auto) 82.9 % (16.0-70.0); Platelet Count 270 th/mm3 (150-450); Red Blood Count 4.18 mil/mm3 (4.00-5.30); Red Cell Distribution Width 18.1 % (11.6-17.2); White Blood Count 11.3 th/mm3 (4.0-11.0)
[2018-02-02 06:09] LABS: Alanine Aminotransferase 27 U/L (10-53)
[2018-02-02 06:12] LABS: Alkaline Phosphatase 91 U/L (45-117); Total Protein 7.2 g/dL (6.4-8.2)
[2018-02-02 06:13] LABS: Albumin 3.4 g/dL (3.4-5.0); Anion Gap 5 meq/L (5-15); Aspartate Aminotransferase 25 U/L (15-37); Blood Urea Nitrogen 9 mg/dL (7-18); Calcium 8.7 mg/dL (8.5-10.1); Carbon Dioxide 28.8 meq/L (21.0-32.0); Chloride 105 meq/L (98-107); Glomerular Filtration Rate 81 mL/min (>89); Glucose,Random 68 mg/dL (74-106); Magnesium 1.9 mg/dL (1.5-2.5); Sodium 139 meq/L (136-145)
[2018-02-02 06:14] LABS: Potassium 3.4 meq/L (3.5-5.1)
[2018-02-02 06:44] LABS: Lymphocytes 6 % (9-44); Monocytes 5 % (0-8); Myelocytes 1 % (0-0); Platelet Estimate Normal (Normal); Platelet Morphology Normal (Normal)
[2018-02-02] MEDS ORDERED: Azithromycin Inj 500 MG in Sodium Chlor 0.9% Inj 250 ML IV.SIG ONE (06:53)
[2018-02-02] MEDS ORDERED: Bisacodyl 10 MG Supp RECTAL PRN (08:14)
[2018-02-02 08:51] LABS: ABG Base Excess 0.5 mmol/L (-2-2); ABG PCO2 52 mmHg (38-42); ABG PO2 72 mmHg (61-120)
[2018-02-02] MEDS: Senna/Docusate Sodium 8.6/50 MG Tablet PO SCH ×2 (11:32→21:46)
[2018-02-02] MEDS: MethylPREDNISolone Sod Succinate Inj 40 MG/ML Vial IV.PUSH SCH ×2 (12:20→20:02)
[2018-02-02] MEDS ORDERED: Benzonatate 100 MG Capsule PO PRN (12:24)
[2018-02-02] MEDS: Acetaminophen 325 MG Tablet PO PRN (13:20)
[2018-02-02] MEDS: Lisinopril 20 MG Tablet PO SCH (13:20)
--- NOTE | 2018-02-02 13:30 | ECG ---
Date Performed: 02/02/2018 Time Performed: 08:43:13 PTAGE: 67 years EKG: SINUS TACHYCARDIA POSSIBLE LEFT ATRIAL ENLARGEMENT SEPTAL MYOCARDIAL INFARCTION ABNORMAL EC G NO PREVIOUS TRACING DOCTOR: Arsen Vizcarra Interpretating Date/Time 02/02/2018 13:27:26
[2018-02-02] MEDS: hydrALAZINE HCl Inj 20 MG/ML Vial IV.PUSH PRN (15:21)
--- NOTE | 2018-02-02 15:21 | P.HPIM ---
History of Present Illness Primary Care Physician: The patient is a 67-year-old female with a known history of COPD, DM, HTN, HLD, Afib admitted with increasing shortness of breath, associated hypoxemia, hospitalized for same multiple times. Patient is with worsening shortness of breath, using accessory repiratory muscle in tripod position. ABG is reassuring , however due to increased labored breathing she is placed on bipap.The patient folow with Dr Sterling weems. Patient received nebs, solumedrol. Evaluated by pultab. Patient is transfered to ICU. Noted with elevated BP. Patient still with labored breathing dispite bipap use. Discussed with Dr Bloom wrapper operator Patient is intubated Patient reports she smokes a pack of cigarettes a day for over 30 years, continues to smoke to the time of hospitalization. She was counselled extensively regarding smoking cessations , she expressed understanding, and will try to quit, however says is hard to quit. Review of Systems Review of Systems: all other systems reviewed are negative [facility] Medical History Medical History Atrial fibrillation (Acute) HTN (hypertension) (Acute) Hyperlipidemia (Acute) Diabetes (Acute) Emphysema lung (Acute) COPD (chronic obstructive pulmonary disease) (Acute) Surgical History Surgical History History of tubal ligation (Acute) Social History Social History Substance History: No History of Abuse Second Hand Smoke Exposure: Yes Smoking Status: Unknown if ever smoked Tobacco Type: Cigarettes How Often Do You Have a Drink Containing Alcohol: Unable to Obtain Immunization History Tetanus Immunization: >5 Years Medications and Allergies Allergies Allergy/AdvReac Type Severity Reaction Status Date / Time hydrochlorothiazide AdvReac Mild Nausea and Verified 02/02/18 04:44 Malaise Home Medications Medication Instructions Recorded Confirmed Type albuterol sulfate 2 puff INHALATION Q4H PRN 08/17/17 02/02/18 History aspirin [Aspir-81] 81 mg PO DAILY 08/17/17 02/02/18 History cyanocobalamin (vitamin B-12) 1,000 mcg PO WEEKLY 08/17/17 02/02/18 History [Vitamin B-12] digoxin [Digox] 0.25 mg PO DAILY 08/17/17 02/02/18 History fluticasone 2 spray INTRANASAL DAILY 08/17/17 02/02/18 History insulin detemir U-100 [Levemir 8 unit SUB-Q BID 08/17/17 02/02/18 History U-100 Insulin] lisinopril 20 mg PO DAILY 08/17/17 02/02/18 History pantoprazole [Protonix] 20 mg PO DAILY 08/17/17 02/02/18 History albuterol sulfate [ProAir HFA] 1 puff INHALATION Q4-6H PRN 09/17/17 02/02/18 History budesonide-formoterol [Symbicort] 2 puff INHALATION BID 09/17/17 02/02/18 History diltiazem HCl 120 mg PO DAILY 09/17/17 02/02/18 History gabapentin 300 mg PO BID 09/17/17 02/02/18 History ibuprofen 600 mg PO TID PRN 09/17/17 02/02/18 History ipratropium bromide [Atrovent HFA] 1 puff INHALATION Q6H 09/17/17 02/02/18 History ranitidine HCl 150 mg PO DAILY 09/17/17 02/02/18 History Active Medications: Active Medications Acetaminophen (Tylenol) 650 mg PO Q4H PRN PRN Reason: Temp > 100.4 Last Admin: 02/02/18 13:20 Dose: 650 mg Al Hydroxide/Mg Hydroxide (Milk Of Sumeet Erwin) 30 ml PO Q12H PRN PRN Reason: Mild Constipation Albuterol (Duoneb Neb (Rema)) 1 ampul NEB Q6HR WHILE AWAKE NEB REMA Last Admin: 02/02/18 13:06 Dose: 1 ampul Albuterol (Duoneb Neb (Prn)) 1 ampul NEB Q2HR NEB PRN PRN Reason: WHEEZING Benzonatate (Tessalon Perles) 200 mg PO TID PRN PRN Reason: cough Bisacodyl (Dulcolax Supp) 10 mg RECTAL DAILY PRN PRN Reason: SEVERE CONSITIPATION Budesonide/Formoterol Fumarate (Symbicort 160/4.5 Mcg Inh) 2 puff INH BID REMA Digoxin (Lanoxin) 250 mcg PO DAILY REMA Diltiazem HCl (Cardizem Cd 24hr) 120 mg PO DAILY [facility] Enalaprilat (Vasotec Inj) 2.5 mg IV.PUSH Q6H PRN PRN Reason: SBP> 160 Famotidine (Pepcid) 20 mg PO BID [facility] Fluticasone Propionate (Flonase Nasal [place]) 2 spray EACH NARE DAILY [facility] Gabapentin (Neurontin) 300 mg PO BID [facility] Hydralazine HCl (Apresoline Inj) 20 mg IV.PUSH Q4H PRN PRN Reason: SBP>160, DBP>90 Sodium Chloride (Ns Inj) 800 mls @ 0 mls/hr IV.SIG .Q0M [facility] Sodium Chloride (Ns Inj) 1,000 mls @ 0 mls/hr IV.SIG .Q0M [facility] Azithromycin 500 mg/ Sodium (Chloride) 250 mls @ 250 mls/hr IV.SIG Q24H [facility] Stop: 02/06/18 09:59 Ceftriaxone Sodium 1,000 mg/ (Sodium Chloride) 100 mls @ 200 mls/hr IV.SIG Q24H [facility] Insulin Detemir (Levemir Inj) 8 unit SQ BID [facility] Lactulose (Lactulose Liq) 30 ml PO DAILY PRN PRN Reason: SEVERE CONSITIPATION Lisinopril (Prinivil) 20 mg PO DAILY [facility] Last Admin: 02/02/18 13:20 Dose: 20 mg Methylprednisolone Sodium Succinate (Solumedrol Inj) 40 mg IV.PUSH Q6HR [facility] Last Admin: 02/02/18 12:20 Dose: 40 mg Ondansetron HCl (Zofran Inj) 4 mg IV.PUSH Q6H PRN PRN Reason: NAUSEA OR VOMITING Pantoprazole Sodium (Protonix) 20 mg PO DAILY [facility] Senna/Docusate Sodium (Radha-Colace) 1 tab PO BID [facility] Last Admin: 02/02/18 11:32 Dose: Not Given Sennosides (Senokot) 17.2 mg PO Q12H PRN PRN Reason: Moderate Constipation Sodium Chloride (Ns Flush) 2 ml IV.FLUSH BID [facility] Last Admin: 02/02/18 11:32 Dose: Not Given Sodium Chloride (Ns Flush) 2 ml IV.FLUSH UNSCH PRN PRN Reason: FLUSH AFTER USING IV ACCESS Physical Exam Vital signs: Last Vital Signs Temp 97.4 F L 02/02/18 13:23 Pulse 113 H 02/02/18 13:23 Resp 24 02/02/18 13:23 BP 203/93 H 02/02/18 13:23 Pulse Ox 99 02/02/18 13:23 Intake & Output 01/31/18 02/01/18 02/02/18 02/03/18 06:59 06:59 06:59 06:59 Intake Total 350 / 350 Output Total 350 / 350 Balance 0 / 0 Weight 45.359 kg Narrative: GENERAL: Frail female. Alert, in respiratory distress, using accessory muscles of breathing, in tripod position, on bipap. Anxious. HEENT: On bipap. Eyes without icterus. NECK: Without adenopathy or thyroid enlargement. CHEST: Scattered rhonchi, wheeze bilaterally, decreased breath sounds, in respiratory distress, labored breathing, on bipap sitting in tripod position. CARDIAC: S1, S2 audible. No murmur. No rub. ABDOMEN: Positive bowel sounds x 4Q. EXTREMITIES: No clubbing, cyanosis, or edema. NEURO: Alert and oriented. No focal deficits. Results Labs CBC & Chem 7: 02/02/18 05:25 02/02/18 05:25 Imaging Impressions Chest X-Ray 02/02/18 04:33 CONCLUSION: The lungs are clear. Caprini VTE Risk Assessment Caprini VTE Risk Assessment: Moderate/High Risk (score >= 2) Caprini Risk Assessment Model: Point Value = 1 Point Value = 2 Point Value = 3 Point Value = 5 Age 41-60 Minor surgery BMI > 25 kg/m2 Swollen legs Varicose veins or History of unexplained or recurrent spontaneous Oral contraceptives or hormone replacement Sepsis (< 1 month) Serious lung disease, including pneumonia (< 1 month) Abnormal pulmonary function Acute myocardial infarction Congestive heart failure (< 1 month) History of inflammatory bowel disease Medical patient at bed rest Age 61-74 Arthroscopic surgery Major open surgery (> 45 min) Laparoscopic surgery (> 45 min) Malignancy Confined to bed (> 72 hours) Immobilizing plaster cast Central venous access Age >= 75 History of VTE Family history of VTE Factor V Leiden Prothrombin [id number] Lupus anticoagulant Anticardiolipin antibodies Elevated serum homocysteine Heparin-induced thrombocytopenia Other congenital or acquired thrombophilia Stroke (< 1 month) Elective arthroplasty Hip, pelvis, or leg fracture Acute spinal cord injury (< 1 month) Prophylaxis Regimen: Total Risk Factor Score Risk Level Prophylaxis Regimen 0-1 Low Early ambulation 2 Moderate Order ONE of the following: *Sequential Compression Device (SCD) *Heparin 5000 units SQ BID 3-4 Higher Order ONE of the following medications: *Heparin 5000 units SQ TID *Enoxaparin/Lovenox 40 mg SQ daily (WT < 150 kg, CrCl > 30 mL/min) *Enoxaparin/Lovenox 30 mg SQ daily (WT < 150 kg, CrCl > 10-29 mL/min) *Enoxaparin/Lovenox 30 mg SQ BID (WT < 150 kg, CrCl > 30 mL/min) AND/OR *Sequential Compression Device (SCD) 5 or more Highest Order ONE of the following medications: *Heparin 5000 units SQ TID (Preferred with Epidurals) *Enoxaparin/Lovenox 40 mg SQ daily (WT < 150 kg, CrCl > 30 mL/min) *Enoxaparin/Lovenox 30 mg SQ daily (WT < 150 kg, CrCl > 10-29 mL/min) *Enoxaparin/Lovenox 30 mg SQ BID (WT < 150 kg, CrCl > 30 mL/min) AND *Sequential Compression Device (SCD) Assessment and Plan Plan Acute respiratory failure requiting Bipap deteriorating, using accessory muscle use in tripod position intubated by wrapper operator Severe Chronic obstructive pulmonary disease exacerbation. Hypoxic hypercapnic respiratory failure. Insulin Dependent Diabetes mellitus. Hypertension, uncontrolled Hyperlipidemia. Cachexia, probably pulmonary. Severe protein malnutrition patient with bitemporal waisting, weak hand midlevel provider, muscle waisting, cachectic, low BMI duonebs, solumedrol, taper as tolerated Bipap , intubated later by wrapper operator Dr Bloom Started on azithro/ceftriaxone IV abx CxR reviewed ABG reviewed pH 7.32, pCO2 of 52, pO2 of 72 on 50% inspired oxygen fraction. Transferred to intensive care setting. Discussed with Dr Bloom wrapper operator Oxygen therapy, bronchodilator therapy continued. Continue home meds as appropriate BP is not controlled add hydralazine IV prn Discussed with the patient, nurse, ER physician , Dr Bloom wrapper operator H&P: Quality VTE Deep Vein Thrombosis/Pulmonary Embolism Present on Admission: No
[2018-02-02] MEDS: LORazepam 0.5 MG Tablet PO PRN (16:37)
[2018-02-02] MEDS ORDERED: Midazolam Inj 5 MG/ML 1 ML Vial ONE ×2 (17:49→17:50)
[2018-02-02] MEDS ORDERED: Etomidate Inj 40 MG/20 ML Vial IV.PUSH ONE (17:49)
--- NOTE | 2018-02-02 18:11 | P.PCN ---
Date of procedure: 02/02/18 Pre-op diagnosis: Acute hypoxemic respiratory failure Post-op diagnosis: same Procedure: PROCEDURE: Endotracheal intubation INDICATION: Acute hypoxemic respiratory failure DETAILS OF PROCEDURE: The patient was placed in optimal position and preoxygenated with 100% FiO2 via BiPAP initially and then via [id number]. Oxygen saturation of 98% was obtained prior to laryngoscopy. The patient was administered etomidate 20 mg IV and Versed 5 mg IV for sedation and rocuronium 50 mill grams IV. Laryngoscopy was performed with a DL #4 blade and a grade I Cormack-Lehane view was obtained, On single attempt, a size 8.0 endotracheal tube was visualized passing through the cords. Correct placement was confirmed with colorimetric CO2 detector. Breath sounds were equal bilaterally. No sounds auscultated over the stomach. The endotracheal tube was secured with a commercial tube taveras at a depth of 22 cm at the lips. The patient was connected to the ventilator. The patient tolerated the procedure well without any apparent complication. Oxygen saturations were maintained greater than 85% at all times. Stat chest x-ray was ordered. Anesthesia: FORD Surgeon: John Bloom Pathology: other (sputum) Condition: critical Disposition: ICU
[2018-02-02] MEDS ORDERED: Propofol Inj 500 MG/50 ML Vial ONE (18:24)
--- NOTE | 2018-02-02 18:37 | XR ---
EXAM DATE: 02/02/2018 6:18 PM EST AGE/SEX: 67 years / Female INDICATIONS: Post intubation. CLINICAL DATA: This is the patient's initial encounter. Patient reports that signs and symptoms have been present for 1 day and indicates a pain score of Nonresponsive. MEDICAL/SURGICAL HISTORY: . Diabetes mellitus type II. Chronic obstructive pulmonary disease. A sthma. Hypertension. Smoker. High blood pressure. High cholesterol. A-Fib. None. . COMPARISON: [facility], CHEST 1V SINGLE AP, 02/02/2018. . FINDINGS: The endotracheal tube is in good position 2 cm above the vinicio. Nasogastric tube has tip below diaph ragm. The heart is normal. The pulmonary vascular pattern is normal. There is minimal blunting of the costophrenic recesses consistent with possible tiny pleural effusions or pleural thickening. The ortega gs are clear. Degenerative changes are noted throughout the thoracic spine. CONCLUSION: 1. Minimal blunting of the costophrenic recesses consistent with possible tiny pleural effusions or pleural thickening. 2. No focal infiltrate or pulmonary vascular congestion. 3. Endotracheal tube in good position 2 cm above the vinicio. Electronically signed by: Fredo Perez MD Board Certified Radiologist 02/02/2018 6:36 PM EST
[2018-02-02 19:27] LABS: ABG Base Excess -3.1 mmol/L (-2-2); ABG PCO2 34 mmHg (38-42); ABG PO2 559 mmHG (61-120)
[2018-02-02] MEDS ORDERED: RASS Change Order OTHER ONE (20:00)
--- NOTE | 2018-02-02 20:52 | MB ---
cc: Gail Reynolds MD DATE: 02/02/2018 REASON FOR CONSULTATION: COPD exacerbation. HISTORY OF PRESENT ILLNESS: The patient is a 67-year-old female with a known history of COPD, admitted with increasing shortness of breath, associated hypoxemia, hospitalized for same. I was asked to see her with worsening shortness of breath. Upon my evaluation, the patient is in obvious respiratory distress with use of accessory muscles of respiration. Transfer to the intensive care at that point was advised, and indeed the patient was transferred to the intensive care setting. PAST MEDICAL HISTORY: COPD, diabetes, hypertension, hyperlipidemia, and atrial fibrillation. MEDICATIONS AT HOME: Inhaled albuterol, lisinopril, pantoprazole, Symbicort, diltiazem, gabapentin, ibuprofen, ipratropium, and Zantac. ALLERGIES: HYDROCHLOROTHIAZIDE. FAMILY HISTORY: Noncontributory. REVIEW OF SYSTEMS: A 12-point review of systems as per HPI and past history, otherwise negative. SOCIAL HISTORY: Smokes a pack of cigarettes a day for over 30 years, continues to smoke to the time of hospitalization. Does not drink alcohol, does not use drugs. PHYSICAL EXAMINATION: GENERAL: Alert, in respiratory distress, using accessory muscles of breathing. VITAL SIGNS: Temperature 99, pulse 100, respirations 30, blood pressure 190/80, oxygen saturation 96%. HEENT: Unremarkable. Eyes without icterus. NECK: Without adenopathy or thyroid enlargement. CHEST: Scattered rhonchi, wheeze bilaterally. CARDIAC: PMI not appreciated. S1, S2 audible. No murmur. No rub. ABDOMEN: Lax. Audible bowel sounds. EXTREMITIES: No clubbing, cyanosis, or edema. Chest x-ray: Clear lung grubbs. LABORATORY DATA: White count 11,000, hemoglobin 11, hematocrit 36, platelets 270,000. ABG: pH 7.32, pCO2 of 52, pO2 of 72 on 50% inspired oxygen fraction. Sodium 139, potassium 3.4, BUN 9, creatinine 0.8. IMPRESSION: 1. Chronic obstructive pulmonary disease exacerbation. 2. Hypoxic hypercapnic respiratory failure. 3. Diabetes mellitus. 4. Hypertension. 5. Hyperlipidemia. 6. Cachexia, probably pulmonary. PLAN: The patient will be transferred to intensive care setting. Oxygen therapy, bronchodilator therapy continued. Arterial blood gases followed. Intubation and mechanical ventilation undertaken if needed. IV steroids have been initiated and appropriately so. Her course will be followed closely and depending on progress proceed further. I do thank you for asking me to partake in Mrs. Aquino's care. Gail Reynolds MD WWW/ , 07:35 PM , 07:44 PM
--- NOTE | 2018-02-02 21:26 | P.CONCC ---
History of Present Illness Service: Critical care medicine Consult date: 02/02/18 Requesting Physician: Jody Sung Reason for Consult: hypoxia Primary Care Provider: UNKNOWN Chief Complaint: shortness of breath History of Present Illness: 67yF with history of COPD was originally admitted by the Hospitalist service for hypercapnea and COPD exacerbation. Per their admission note: The patient is a 67-year-old female with a known history of COPD, DM, HTN, HLD, Afib admitted with increasing shortness of breath, associated hypoxemia, hospitalized for same multiple times. Patient is with worsening shortness of breath, using accessory repiratory muscle in tripod position. ABG is reassuring , however due to increased labored breathing she is placed on bipap.The patient folow with Dr Sterling weems. Patient received nebs, solumedrol. Evaluated by pulm. Patient is transfered to ICU. Noted with elevated BP. Patient still with labored breathing dispite bipap use. Patient reports she smokes a pack of cigarettes a day for over 30 years, continues to smoke to the time of hospitalization. She was counselled extensively regarding smoking cessations , she expressed understanding, and will try to quit, however says is hard to quit. despite aggressive non-invasive ventilatory strategies, patient decompensated and was emergently intubated by Dr. Bloom (see separate procedural documentation) . patient is intubated and cannot provide any additional history. ROS unobtainable. the remainder of the history taken from prior medical record documentation. FHx: unable to obtain due to endotracheal tube. Review of Systems unobtainable due to endotracheal tube, unobtainable due to mental status PMFSH - History History Provided By: Medical Record - Medical / Surgical Hx Neg / Unobtainable Medical Problems Denied: Unable to Obtain Surgical History: Unable to Obtain - Medical History Medical History: Medical History (Last Reviewed 02/03/18 @ 00:36 by Albert Huynh MD) Atrial fibrillation (Acute) HTN (hypertension) (Acute) Hyperlipidemia (Acute) Diabetes (Acute) Emphysema lung (Acute) COPD (chronic obstructive pulmonary disease) (Acute) - Surgical History Surgical History: Surgical History (Last Reviewed 02/03/18 @ 00:36 by Albert Huynh MD) History of tubal ligation - Social History I have reviewed the patient's Social History: Yes - Tobacco History Second Hand Smoke Exposure: Yes Tobacco Use In Past 30 Days: Yes Smoking Status: Unknown if ever smoked Tobacco Type: Cigarettes - Alcohol History How Often Do You Have a Drink Containing Alcohol: Unable to Obtain - Substance Use History Substance History: No History of Abuse - Immunization History Tetanus Immunization: >5 Years Medications and Allergies Active Medications: Active Medications Acetaminophen (Tylenol) 650 mg PO Q4H PRN PRN Reason: Temp > 100.4 Last Admin: 02/02/18 13:20 Dose: 650 mg Al Hydroxide/Mg Hydroxide (Milk Of Sumeet Erwin) 30 ml PO Q12H PRN PRN Reason: Mild Constipation Albuterol (Duoneb Neb (Rema)) 1 ampul NEB Q6HR WHILE AWAKE NEB REMA Last Admin: 02/02/18 13:06 Dose: 1 ampul Albuterol (Duoneb Neb (Prn)) 1 ampul NEB Q2HR NEB PRN PRN Reason: WHEEZING Last Admin: 02/02/18 15:33 Dose: 1 ampul Albuterol (Duoneb Neb (Rema)) 1 ampul NEB Q4HR NEB REMA Last Admin: 02/02/18 19:39 Dose: 1 ampul Benzonatate (Tessalon Perles) 200 mg PO TID PRN PRN Reason: cough Bisacodyl (Dulcolax Supp) 10 mg RECTAL DAILY PRN PRN Reason: SEVERE CONSITIPATION Budesonide/Formoterol Fumarate (Symbicort 160/4.5 Mcg Inh) 2 puff INH BID [facility] Chlorhexidine Gluconate (Peridex 0.12% Oral Kit) 15 ml OROPHARYNG BID@0800, 2000 [facility] Digoxin (Lanoxin) 250 mcg PO DAILY [facility] Diltiazem HCl (Cardizem Cd 24hr) 120 mg PO DAILY [facility] Enalaprilat (Vasotec Inj) 2.5 mg IV.PUSH Q6H PRN PRN Reason: SBP> 160 Enoxaparin Sodium (Lovenox Inj) 40 mg SQ Q24H [facility] Famotidine (Pepcid) 20 mg PO BID [facility] Fluticasone Propionate (Flonase Nasal [place]) 2 spray EACH NARE DAILY [facility] Gabapentin (Neurontin) 300 mg PO BID [facility] Hydralazine HCl (Apresoline Inj) 20 mg IV.PUSH Q4H PRN PRN Reason: SBP>160, DBP>90 Last Admin: 02/02/18 15:21 Dose: 20 mg Sodium Chloride (Ns Inj) 800 mls @ 0 mls/hr IV.SIG .Q0M REMA Sodium Chloride (Ns Inj) 1,000 mls @ 0 mls/hr IV.SIG .Q0M REMA Azithromycin 500 mg/ Sodium (Chloride) 250 mls @ 250 mls/hr IV.SIG Q24H REMA Stop: 02/06/18 09:59 Ceftriaxone Sodium 1,000 mg/ (Sodium Chloride) 100 mls @ 200 mls/hr IV.SIG Q24H REMA Propofol (Diprivan 1000 Mg/100 Ml Inj) 1,000 mg in 100 mls @ 1.361 mls/hr IV.CONT TITRATE PRN; Protocol PRN Reason: Per Protocol Fentanyl (Fentanyl 10 Mcg/Ml Premix Drip) 2,500 mcg in 250 mls @ 5 mls/hr IV.SIG TITRATE PRN; Protocol PRN Reason: Per Protocol Insulin Detemir (Levemir Inj) 8 unit SQ BID [facility] Lactulose (Lactulose Liq) 30 ml PO DAILY PRN PRN Reason: SEVERE CONSITIPATION Lisinopril (Prinivil) 20 mg PO DAILY [facility] Last Admin: 02/02/18 13:20 Dose: 20 mg Lorazepam (Ativan) 0.5 mg PO Q8H PRN PRN Reason: ANXIETY Last Admin: 02/02/18 16:37 Dose: 0.5 mg Methylprednisolone Sodium Succinate (Solumedrol Inj) 40 mg IV.PUSH Q6HR [facility] Last Admin: 02/02/18 20:02 Dose: 40 mg Miscellaneous Medication () 1 each OROPHARYNG 0000,0400,1200,1600 [facility] Ondansetron HCl (Zofran Inj) 4 mg IV.PUSH Q6H PRN PRN Reason: NAUSEA OR VOMITING Pantoprazole Sodium (Protonix) 20 mg PO DAILY [facility] Senna/Docusate Sodium (Radha-Colace) 1 tab PO BID [facility] Last Admin: 02/02/18 11:32 Dose: Not Given Sennosides (Senokot) 17.2 mg PO Q12H PRN PRN Reason: Moderate Constipation Sodium Chloride (Ns Flush) 2 ml IV.FLUSH BID [facility] Last Admin: 02/02/18 11:32 Dose: Not Given Sodium Chloride (Ns Flush) 2 ml IV.FLUSH UNSCH PRN PRN Reason: FLUSH AFTER USING IV ACCESS Allergies Allergy/AdvReac Type Severity Reaction Status Date / Time hydrochlorothiazide AdvReac Mild Nausea and Verified 02/02/18 04:44 Malaise Home Medications Medication Instructions Recorded Confirmed Type albuterol sulfate 2 puff INHALATION Q4H PRN 08/17/17 02/02/18 History aspirin [Aspir-81] 81 mg PO DAILY 08/17/17 02/02/18 History cyanocobalamin (vitamin B-12) 1,000 mcg PO WEEKLY 08/17/17 02/02/18 History [Vitamin B-12] digoxin [Digox] 0.25 mg PO DAILY 08/17/17 02/02/18 History fluticasone 2 spray INTRANASAL DAILY 08/17/17 02/02/18 History insulin detemir U-100 [Levemir 8 unit SUB-Q BID 08/17/17 02/02/18 History U-100 Insulin] lisinopril 20 mg PO DAILY 08/17/17 02/02/18 History pantoprazole [Protonix] 20 mg PO DAILY 08/17/17 02/02/18 History albuterol sulfate [ProAir HFA] 1 puff INHALATION Q4-6H PRN 09/17/17 02/02/18 History budesonide-formoterol [Symbicort] 2 puff INHALATION BID 09/17/17 02/02/18 History diltiazem HCl 120 mg PO DAILY 09/17/17 02/02/18 History gabapentin 300 mg PO BID 09/17/17 02/02/18 History ibuprofen 600 mg PO TID PRN 09/17/17 02/02/18 History ipratropium bromide [Atrovent HFA] 1 puff INHALATION Q6H 09/17/17 02/02/18 History ranitidine HCl 150 mg PO DAILY 09/17/17 02/02/18 History Physical Exam Vital signs: Vital Signs 02/02/18 04:39 02/02/18 04:56 02/02/18 06:11 Temperature 37.7 C H Pulse Rate 133 H 118 H Respiratory Rate 24 18 Blood Pressure 196/80 H Pulse Oximetry 100 95 99 02/02/18 06:20 02/02/18 06:28 02/02/18 06:48 Temperature Pulse Rate 117 H 115 H 104 H Respiratory Rate 20 17 17 Blood Pressure Pulse Oximetry 02/02/18 07:29 02/02/18 07:30 02/02/18 07:31 Temperature Pulse Rate 113 H 109 H Respiratory Rate 22 24 Blood Pressure 175/79 H Pulse Oximetry 100 100 02/02/18 07:47 02/02/18 09:12 02/02/18 11:42 Temperature Pulse Rate 108 H 112 H Respiratory Rate 24 24 Blood Pressure 155/68 H 187/79 H Pulse Oximetry 100 100 100 02/02/18 11:55 02/02/18 13:03 02/02/18 13:23 Temperature 36.3 C L Pulse Rate 108 H 113 H 113 H Respiratory Rate 20 17 24 Blood Pressure 193/79 H 203/93 H Pulse Oximetry 100 98 99 02/02/18 15:00 02/02/18 15:22 02/02/18 15:36 Temperature Pulse Rate 106 H 109 H 120 H Respiratory Rate 22 24 Blood Pressure 186/98 H Pulse Oximetry 02/02/18 16:00 02/02/18 17:13 02/02/18 18:17 Temperature Pulse Rate 125 H Respiratory Rate 36 H 14 Blood Pressure 159/50 H Pulse Oximetry 99 0 L 100 02/02/18 19:40 Temperature Pulse Rate 121 H Respiratory Rate 14 Blood Pressure Pulse Oximetry 100 Intake & Output 02/02/18 02/02/18 02/03/18 06:59 18:59 06:59 Intake Total 350 / 350 Output Total 350 / 350 Balance 0 / 0 Weight 45.359 kg Intake: IV 350 / 350 Azithromycin Inj 500 MG In NS 250 / 250 Inj 250 ML @ 250 mls/hr IV.SIG ONCE ONE Rx#:[id number] Rocephin Inj 1,000 MG In NS Inj 100 / 100 100 ML @ 200 mls/hr IV.SIG ONCE ONE Rx#:[id number] Oral 0 / 0 Output: Urine 350 / 350 Other: Date of Last Bowel Movement 02/02/18 # Bowel Movements 0 Narrative: GENERAL: Frail female. intubated, sedated, critically ill. HEENT: nc. at. perrl. Eyes without icterus. mmm. NECK: Without adenopathy or thyroid enlargement. trachea midline. CHEST: Scattered rhonchi, wheeze bilaterally, decreased breath sounds, prvc, tv 450, rate 16, peep 5, fio2 35%. spo2 96%. CARDIAC: normal rate, regular rhythm. sinus. ABDOMEN: soft, nontender, nondistended. no guarding. EXTREMITIES: No clubbing, cyanosis, or edema. NEURO: RASS -3. sedated, intubated. Septic Shock Reassessment Septic shock perfusion: reassessment completed Assessment and Plan - Assessment and Plan Plan: Assessment: 67yF with acute hypoxic and hypercarbic respiratory failure most likely secondary to acute severe COPD exacerbation. Plan by systems: Neurologic: Acute metabolic encephalopathy CO2 narcosis/Hypercarbic encephalopathy - propofol, fentanyl for goal RASS -2. - daily sedation vacations Respiratory: acute, severe COPD exacerbation acute hypercarbic and hypoxic respiratory failure - iv steroids - prn nebs - inhaled corticosteroid - vent bundle - hob elevated - daily SBTs to start in AM - wean fio2 for goal spo2 > 90% - check abg Cardiovascular: hypotension - likely associated with sedation and change to positive pressure ventilation - will start with NS bolus and transient vasopressors to maintain end-organ perfusion. - does not appear to be related to shock at this moment. lactate normal. Renal: -- Strict I/Os - no indication for man at this time. FEN/GI: Acute protein calorie malnutrition- severe - place OG tube - hold off on tube feeds tonight. would plan to start tomorrow if she cannot be rapidly weaned from mechanical ventilation - ICU electrolyte protocol - AM cmp Heme/ID: - continue rocephin and azithromycin - low threshold to transition to anti-pseudomonal coverage if not improving. - am cbc - f/u culture data Endocrine: Diabetes -- SSI Prophylaxis: GI Prophylaxis pepcid DVT Prophylaxis -- SCDs - lovenox Lines: piv's may require central venous access if temporary hypotension persists. Dispo: remain in ICU. critically ill. This patient remains critically ill with one or more organ systems which are or may become a threat to life. I have spent in excess of 47 minutes discontinuously in the care and management of this patient. This time is exclusive of procedures, and includes, but is not limited to, evaluation of the patient, review of the medical record, discussions with family, consultants, nursing staff, or respiratory therapy, and documentation in the medical record.
[2018-02-02] MEDS: Insulin Detemir Inj 1,000 UNIT/10 ML Vial SQ SCH (21:45)
[2018-02-02] MEDS: Gabapentin 300 MG Capsule PO SCH (21:45)
[2018-02-02] MEDS: Chlorhexidine 0.12% Oral Kit 15 ML UDC OROPHARYNG SCH (21:45)
[2018-02-02] MEDS: Enoxaparin Inj 40 MG/0.4 ML Syringe SQ SCH (21:45)
[2018-02-02] MEDS: Propofol 1000 mg/100 ml Inj 1,000 MG/100 ML BOTTLE IV.CONT PRN (21:46)
[2018-02-02] MEDS: fentaNYL 10 mcg/mL Premix Drip 2,500 MCG/250 ML BAG IV.SIG PRN (21:47)
[2018-02-02] MEDS ORDERED: Sod Chloride 0.9% Inj 1,000 ML IV.SIG ONE (23:00)
[2018-02-03] MEDS: Oral Hygiene Kit OROPHARYNG SCH ×4 (00:19→16:26)
[2018-02-03] MEDS: MethylPREDNISolone Sod Succinate Inj 40 MG/ML Vial IV.PUSH SCH ×4 (00:19→18:26)
[2018-02-03] MEDS: Acetaminophen 325 MG Tablet PO PRN ×2 (00:19→03:58)
[2018-02-03] MEDS: Budesonide-Formoterol 160/4.5 MCG 6 GM Inhaler INH SCH ×3 (00:29→20:53)
[2018-02-03] MEDS ORDERED: Sod Chloride 0.9% Inj 1,000 ML IV.SIG SCH (01:30)
--- NOTE | 2018-02-03 02:55 | P.PCN ---
Date of procedure: 02/03/18 Procedure: Central Line Procedure Note Left IJ 7 Malaysian 20 cm triple-lumen catheter Diagnosis: Acute hypoxic and hypercarbic respiratory failure Indications: Need for highly potent vasoactive substances Consent: Obtained from the family Anesthesia: Propofol IV, 1% lidocaine locally Description of the Procedure: The patient was placed in the supine, mild- Trendelenburg position. The area was prepped and draped sterilely. A 19g needle was inserted under negative pressure aspiration and dark venous blood was obtained. A guidewire was inserted easily without resistance. A small incision was made using a #11 blade. Using a modified Seldinger technique, the dilator and 7 Malaysian, 20 cm catheter were advanced over the guidewire without resistance. All ports were aspirated and flushed, and had brisk blood return. The line was secured at 19 cm at the skin using a non-suture StatLock device. A Biopatch and Transparent sterile dressing were applied. There were no immediate complications noted. There was minimal EBL. The patient tolerated the procedure well. Ultrasound Guidance: Ultrasound guidance was used to identify the left internal jugular vein. The vascular anatomy of the left anterior neck was normal. The vessel was cannulated under direct, real-time ultrasound visualization. After placement of the guidewire, confirmation of the guidewire in the lumen of the vessel was made using ultrasound visualization, before dilation of the tract. A Chest x-ray has been ordered. I personally performed the procedure.
--- NOTE | 2018-02-03 02:58 | P.PCN ---
Date of procedure: 02/03/18 Procedure: Procedure: Arterial Line Placement Left radial arterial line Diagnosis: acute hypercarbic and hypoxic respiratory failure Indications: serial arterial blood gas sampling Consent: emergent Description of the Procedure: The left wrist was prepped and draped sterilely. 1% lidocaine was used for local anesthesia. The pulse was located and a needle was advanced into the artery. A 20 gauge, 12 cm catheter was advanced into the artery using a modified Seldinger technique. The catheter was sutured to the skin and a sterile dressing was applied. The catheter was connected to a pressure transducer and an arterial waveform was noted. There were no immediate complications noted. There was minimal EBL. I personally performed the procedure.
--- NOTE | 2018-02-03 03:18 | XR ---
EXAM DATE: 02/03/2018 3:09 AM EST AGE/SEX: 67 years / Female INDICATIONS: Left internal jugular central line placement. CLINICAL DATA: This is the patient's subsequent encounter. Patient reports that signs and symptoms h ave been present for 2 days and indicates a pain score of Nonresponsive. MEDICAL/SURGICAL HISTORY: Diabetes mellitus type II. Chronic obstructive pulmonary disease. A sthma. Hypertension. A-fib. None. COMPARISON: C, CHEST 1V SINGLE AP, 02/02/2018. . FINDINGS: The endotracheal tube, nasogastric tube and left IJ central line are in good position. The lungs are grossly clear. No visible infiltrates identified. A square rectangular metallic piece overlies the GE junction I suspect external to the patient CONCLUSION: Lungs are clear. ET tube in good position. Electronically signed by: Arsen Chiang MD Board Certified Radiologist 02/03/2018 3:17 AM EST
[2018-02-03 04:37] LABS: Baso % (Auto) 0.1 % (0.0-2.0); Hematocrit 28.9 % (35.0-46.0); Hemoglobin 9.6 gm/dL (11.6-15.3); Lymph # (Auto) 0.2 th/mm3 (1.0-4.8); Lymph % (Auto) 2.1 % (9.0-44.0); Mean Corpuscular HGB Conc 33.2 % (32.0-36.0); Mean Corpuscular Hemoglobin 28.9 pg (27.0-34.0); Mean Platelet Volume 8.5 fL (7.0-11.0); Mono # (Auto) 0.4 th/mm3 (0.0-0.9); Mono % (Auto) 3.5 % (0.0-8.0); Neut # (Auto) 9.7 th/mm3 (1.8-7.7); Neut % (Auto) 94.3 % (16.0-70.0); Platelet Count 229 th/mm3 (150-450); Red Blood Count 3.32 mil/mm3 (4.00-5.30); Red Cell Distribution Width 17.9 % (11.6-17.2); White Blood Count 10.3 th/mm3 (4.0-11.0)
[2018-02-03 05:18] LABS: Albumin 2.4 g/dL (3.4-5.0); Calcium 6.5 mg/dL (8.5-10.1); Carbon Dioxide 18.8 meq/L (21.0-32.0); Total Protein 5.2 g/dL (6.4-8.2)
[2018-02-03] MEDS: fentaNYL 10 mcg/mL Premix Drip 2,500 MCG/250 ML BAG IV.SIG PRN ×2 (08:35→19:00)
[2018-02-03] MEDS: Chlorhexidine 0.12% Oral Kit 15 ML UDC OROPHARYNG SCH ×2 (08:35→21:23)
[2018-02-03] MEDS ORDERED: Azithromycin Inj 500 MG in Sodium Chlor 0.9% Inj 250 ML IV.SIG SCH (09:00)
[2018-02-03] MEDS ORDERED: dilTIAZem CD 120 MG Capsule PO SCH (09:00)
[2018-02-03] MEDS: Pantoprazole Sodium 20 MG DR Tablet PO SCH (09:16)
[2018-02-03] MEDS: Lisinopril 20 MG Tablet PO SCH (09:18)
[2018-02-03] MEDS: Propofol 1000 mg/100 ml Inj 1,000 MG/100 ML BOTTLE IV.CONT PRN (10:05)
[2018-02-03] MEDS: Digoxin 250 MCG Tablet PO SCH (10:13)
[2018-02-03] MEDS: Senna/Docusate Sodium 8.6/50 MG Tablet PO SCH ×2 (10:16→21:24)
[2018-02-03] MEDS: Famotidine 20 MG Tablet PO SCH ×2 (10:16→21:24)
[2018-02-03] MEDS: Gabapentin 300 MG Capsule PO SCH ×2 (10:19→21:23)
--- NOTE | 2018-02-03 11:12 | P.PNCC ---
Subjective Subjective Remarks/Hospital Course: 67yF with history of COPD was originally admitted by the Hospitalist service for hypercapnea and COPD exacerbation. Per their admission note: The patient is a 67-year-old female with a known history of COPD, DM, HTN, HLD, Afib admitted with increasing shortness of breath, associated hypoxemia, hospitalized for same multiple times. Patient is with worsening shortness of breath, using accessory repiratory muscle in tripod position. ABG is reassuring , however due to increased labored breathing she is placed on bipap.The patient follow with Dr Sterling weems. Patient received nebs, solumedrol. Evaluated by pulm. Patient is transfered to ICU. Noted with elevated BP. Patient still with labored breathing dispite bipap use. Patient reports she smokes a pack of cigarettes a day for over 30 years, continues to smoke to the time of hospitalization. She was counselled extensively regarding smoking cessations , she expressed understanding, and will try to quit, however says is hard to quit. despite aggressive non-invasive ventilatory strategies, patient decompensated and was emergently intubated by Dr. Bloom (see separate procedural documentation) . patient is intubated and cannot provide any additional history. ROS unobtainable. the remainder of the history taken from prior medical record documentation. SUBJ 02/03: Remains intubated sedated. Currently synchronous with the ventilator. However requiring Levophed to maintain map above 65 currently on 6 mcg. This could be sedation related or due to sepsis. Cultures are pending at this time Objective Vital Signs / I&O: Vital Signs 02/02/18 11:42 02/02/18 11:55 02/02/18 13:03 Temperature Pulse Rate 112 H 108 H 113 H Respiratory Rate 24 20 17 Blood Pressure 187/79 H 193/79 H Pulse Oximetry 100 100 98 02/02/18 13:23 02/02/18 15:00 02/02/18 15:22 Temperature 97.4 F L Pulse Rate 113 H 106 H 109 H Respiratory Rate 24 22 Blood Pressure 203/93 H 186/98 H Pulse Oximetry 99 02/02/18 15:36 02/02/18 16:00 02/02/18 17:13 Temperature Pulse Rate 120 H 125 H Respiratory Rate 24 36 H Blood Pressure 159/50 H Pulse Oximetry 99 0 L 02/02/18 18:17 02/02/18 19:40 02/02/18 20:00 Temperature 99.9 F H Pulse Rate 121 H 118 H Respiratory Rate 14 14 14 Blood Pressure 103/58 L Pulse Oximetry 100 100 100 02/02/18 22:15 02/03/18 00:00 02/03/18 00:29 Temperature 100.5 F H Pulse Rate 109 H 123 H 120 H Respiratory Rate 14 14 16 Blood Pressure 130/64 Pulse Oximetry 100 02/03/18 04:00 02/03/18 04:06 02/03/18 07:00 Temperature 99.0 F Pulse Rate 104 H 104 H 96 H Respiratory Rate 16 16 16 Blood Pressure 134/54 L Pulse Oximetry 100 100 02/03/18 07:56 Temperature Pulse Rate Respiratory Rate 16 Blood Pressure Pulse Oximetry 99 Intake & Output 02/02/18 02/03/18 02/03/18 18:59 06:59 18:59 Intake Total 350 / 350 950 / 950 2000 / 2000 Output Total 350 / 350 600 / 600 Balance 0 / 0 350 / 350 2000 / 2000 Weight 46.1 kg Intake: IV 350 / 350 950 / 950 2000 / 2000 Azithromycin Inj 500 MG In NS 250 / 250 Inj 250 ML @ 250 mls/hr IV.SIG ONCE ONE Rx#:[id number] Levaquin 750 mg Premix Inj 150 150 / 150 ML @ 100 mls/hr IV.SIG Q24H [facility] Rx#:[id number] NS Inj 1,000 ML @ 1000 mls/hr 800 / 800 2000 / 2000 IV.SIG BOLUS [facility] Rx#:[id number] Rocephin Inj 1,000 MG In NS Inj 100 / 100 100 ML @ 200 mls/hr IV.SIG ONCE ONE Rx#:[id number] Oral 0 / 0 0 / 0 Output: Urine 350 / 350 0 / 0 Urine Amount (Catheter) 600 / 600 Straight 600 / 600 Other: Date of Last Bowel Movement 02/02/18 02/02/18 # Bowel Movements 0 0 Result Diagrams: 02/03/18 04:26 02/03/18 04:26 Objective Remarks: GENERAL: Frail female. intubated, sedated, critically ill. HEENT: nc. at. perrl. Eyes without icterus. mmm. NECK: Without adenopathy or thyroid enlargement. trachea midline. CHEST: Scattered rhonchi, wheeze bilaterally, decreased breath sounds, prvc, tv 450, rate 16, peep 5 CARDIAC: normal rate, regular rhythm. sinus. ABDOMEN: soft, nontender, nondistended. no guarding. EXTREMITIES: No clubbing, cyanosis, or edema. NEURO: RASS -3. sedated, intubated. No obvious focal deficits Assessment and Plan - Assessment and Plan Plan: Assessment: 67yF with acute hypoxic and hypercarbic respiratory failure most likely secondary to acute severe COPD exacerbation. Plan by systems: Neurologic: Acute metabolic encephalopathy CO2 narcosis/Hypercarbic encephalopathy - propofol, fentanyl for goal RASS -2. - daily sedation vacations Respiratory: acute, severe COPD exacerbation acute hypercarbic and hypoxic respiratory failure - iv steroids - Scheduled and prn nebs - IV and inhaled corticosteroid - vent bundle - hob elevated - daily SBTs to start in AM - wean fio2 for goal spo2 > 90% - check abg Cardiovascular: hypotension - likely associated with sedation and change to positive pressure ventilation - NS bolus and vasopressors to maintain end-organ perfusion. -Antibiotics as below Renal: - Strict I/Os - no indication for man at this time. FEN/GI: Acute protein calorie malnutrition- severe - OG tube - hold off on tube feeds tonight. would plan to start tomorrow if she cannot be rapidly weaned from mechanical ventilation - ICU electrolyte protocol - AM cmp Heme/ID: - On rocephin and azithromycin, Levaquin added. Will DC Rocephin and azithromycin start cefepime - low threshold to transition to anti-pseudomonal coverage if not improving. - am cbc - f/u culture data Endocrine: Diabetes -- SSI Prophylaxis: GI Prophylaxis pepcid DVT Prophylaxis -- SCDs - lovenox Lines: piv's central line and art line placed Dispo: remain in ICU. critically ill. This patient remains critically ill with one or more organ systems which are or may become a threat to life. I have spent in excess of 35 minutes discontinuously in the care and management of this patient. This time is exclusive of procedures, and includes, but is not limited to, evaluation of the patient, review of the medical record, discussions with family, consultants, nursing staff, or respiratory therapy, and documentation in the medical record.
[2018-02-03] MEDS: Insulin Detemir Inj 1,000 UNIT/10 ML Vial SQ SCH ×2 (11:18→22:18)
[2018-02-03] MEDS: Enoxaparin Inj 40 MG/0.4 ML Syringe SQ SCH (21:23)
[2018-02-04] MEDS: MethylPREDNISolone Sod Succinate Inj 40 MG/ML Vial IV.PUSH SCH ×4 (00:31→18:35)
[2018-02-04] MEDS: Oral Hygiene Kit OROPHARYNG SCH ×4 (00:31→16:41)
[2018-02-04] MEDS: fentaNYL 10 mcg/mL Premix Drip 2,500 MCG/250 ML BAG IV.SIG PRN (03:21)
[2018-02-04] MEDS: Propofol 1000 mg/100 ml Inj 1,000 MG/100 ML BOTTLE IV.CONT PRN (03:31)
[2018-02-04 04:46] LABS: Hematocrit 30.3 % (35.0-46.0); Mean Corpuscular HGB Conc 32.8 % (32.0-36.0); Mean Corpuscular Hemoglobin 28.4 pg (27.0-34.0); Mean Corpuscular Volume 86.7 fL (80.0-100.0); Mean Platelet Volume 9.2 fL (7.0-11.0); Platelet Count 217 th/mm3 (150-450); Red Cell Distribution Width 18.6 % (11.6-17.2); White Blood Count 10.5 th/mm3 (4.0-11.0)
[2018-02-04 05:05] LABS: Calcium 7.4 mg/dL (8.5-10.1); Carbon Dioxide 23.4 meq/L (21.0-32.0); Potassium 3.5 meq/L (3.5-5.1)
[2018-02-04 05:21] LABS: Albumin 2.5 g/dL (3.4-5.0); Calcium-Albumin Corrected 8.6 mg/dL (8.5-10.1)
[2018-02-04] MEDS: Budesonide-Formoterol 160/4.5 MCG 6 GM Inhaler INH SCH ×2 (07:37→20:27)
[2018-02-04] MEDS: Famotidine 20 MG Tablet PO SCH ×2 (08:18→20:26)
[2018-02-04] MEDS: Gabapentin 300 MG Capsule PO SCH ×2 (08:18→20:26)
[2018-02-04] MEDS: Pantoprazole Sodium 20 MG DR Tablet PO SCH (08:18)
[2018-02-04] MEDS: Senna/Docusate Sodium 8.6/50 MG Tablet PO SCH ×2 (08:18→20:26)
[2018-02-04] MEDS: Digoxin 250 MCG Tablet PO SCH (08:18)
[2018-02-04] MEDS: Insulin Detemir Inj 1,000 UNIT/10 ML Vial SQ SCH ×2 (08:19→20:26)
[2018-02-04] MEDS: Chlorhexidine 0.12% Oral Kit 15 ML UDC OROPHARYNG SCH ×2 (08:20→20:26)
--- NOTE | 2018-02-04 08:23 | P.PNCC ---
Subjective Subjective Remarks/Hospital Course: 67yF with history of COPD was originally admitted by the Hospitalist service for hypercapnea and COPD exacerbation. Per their admission note: The patient is a 67-year-old female with a known history of COPD, DM, HTN, HLD, Afib admitted with increasing shortness of breath, associated hypoxemia, hospitalized for same multiple times. Patient is with worsening shortness of breath, using accessory repiratory muscle in tripod position. ABG is reassuring , however due to increased labored breathing she is placed on bipap.The patient follow with Dr Sterling weems. Patient received nebs, solumedrol. Evaluated by pulm. Patient is transfered to ICU. Noted with elevated BP. Patient still with labored breathing dispite bipap use. Patient reports she smokes a pack of cigarettes a day for over 30 years, continues to smoke to the time of hospitalization. She was counselled extensively regarding smoking cessations , she expressed understanding, and will try to quit, however says is hard to quit. despite aggressive non-invasive ventilatory strategies, patient decompensated and was emergently intubated by Dr. Bloom (see separate procedural documentation) . patient is intubated and cannot provide any additional history. ROS unobtainable. the remainder of the history taken from prior medical record documentation. SUBJ 02/03: Remains intubated sedated. Currently synchronous with the ventilator. However requiring Levophed to maintain map above 65 currently on 6 mcg. This could be sedation related or due to sepsis. Cultures are pending at this time 02/04: Continues to be intubated sedated moves all extremities. Requires Levophed to keep map above 65. Chest exam reveals improved bilateral wheezing. Objective Vital Signs / I&O: Vital Signs 02/03/18 09:00 02/03/18 11:00 02/03/18 12:00 Temperature 99.5 F Pulse Rate 96 H 96 H 96 H Respiratory Rate 14 16 Blood Pressure Pulse Oximetry 97 02/03/18 15:00 02/03/18 15:42 02/03/18 16:00 Temperature 98.9 F Pulse Rate 83 96 H Respiratory Rate 14 14 16 Blood Pressure Pulse Oximetry 02/03/18 19:46 02/03/18 19:47 02/03/18 19:53 Temperature Pulse Rate 82 91 H Respiratory Rate 14 14 6 L Blood Pressure Pulse Oximetry 100 100 02/03/18 20:00 02/03/18 20:20 02/03/18 20:40 Temperature 97.8 F Pulse Rate 93 H 92 H 90 Respiratory Rate 14 14 14 Blood Pressure 116/57 L 151/70 H 150/72 H Pulse Oximetry 98 99 99 02/03/18 21:00 02/03/18 21:20 02/03/18 21:40 Temperature Pulse Rate 96 H 95 H 90 Respiratory Rate 14 15 14 Blood Pressure 131/64 120/60 136/67 Pulse Oximetry 99 98 99 02/03/18 22:00 02/03/18 22:20 02/03/18 22:40 Temperature Pulse Rate 90 85 87 Respiratory Rate 14 14 14 Blood Pressure 119/60 156/72 H 116/60 Pulse Oximetry 98 100 99 02/03/18 23:00 02/03/18 23:20 02/03/18 23:26 Temperature Pulse Rate 83 82 83 Respiratory Rate 14 14 14 Blood Pressure 155/68 H 140/68 Pulse Oximetry 99 100 02/03/18 23:27 02/03/18 23:40 02/04/18 00:00 Temperature 97.5 F L Pulse Rate 92 H 92 H Respiratory Rate 14 14 14 Blood Pressure 122/62 135/70 Pulse Oximetry 100 99 100 02/04/18 00:20 02/04/18 00:40 02/04/18 01:00 Temperature Pulse Rate 94 H 88 85 Respiratory Rate 14 14 14 Blood Pressure 105/61 139/67 138/66 Pulse Oximetry 99 99 100 02/04/18 01:20 02/04/18 01:40 02/04/18 02:00 Temperature Pulse Rate 84 82 84 Respiratory Rate 14 14 14 Blood Pressure 110/61 113/62 113/60 Pulse Oximetry 99 100 99 02/04/18 02:30 02/04/18 03:00 02/04/18 03:30 Temperature Pulse Rate 79 80 79 Respiratory Rate 14 14 14 Blood Pressure 133/68 103/57 L 98/56 L Pulse Oximetry 100 100 100 02/04/18 03:51 02/04/18 03:53 02/04/18 04:00 Temperature 97.4 F L Pulse Rate 76 85 Respiratory Rate 14 14 14 Blood Pressure 105/58 L Pulse Oximetry 100 100 02/04/18 04:30 02/04/18 07:00 02/04/18 07:34 Temperature Pulse Rate 88 76 Respiratory Rate 14 14 14 Blood Pressure 134/64 Pulse Oximetry 99 Intake & Output 02/03/18 02/04/18 02/04/18 18:59 06:59 18:59 Intake Total 2950 / 2950 989 / 989 Output Total 700 / 700 Balance 2250 / 2250 989 / 989 Weight 47.3 kg Intake: IV 2950 / 2950 800 / 800 Diprivan 1000 mg/100 ml Inj 1, 100 / 100 100 / 100 000 mg In 100 ml @ 5 MCG/KG/MIN 1.361 mls/hr IV.CONT TITRATE PRN Rx#:[id number] Maxipime Inj 2,000 MG In NS Inj 100 / 100 200 / 200 100 ML @ 200 mls/hr IV.SIG Q8H [facility] Rx#:[id number] Levophed-Dextrose 4 mg/250 ml 250 / 250 250 / 250 Drip 4 mg In 250 ml @ 2 MCG/MIN 7.5 mls/hr IV.SIG TITRATE PRN Rx#:[id number] NS Inj 1,000 ML @ 1000 mls/hr 1999 / 1999 IV.SIG BOLUS [facility] Rx#:[id number] fentaNYL 10 mcg/mL Premix Drip 500 / 500 250 / 250 2,500 mcg In 250 ml @ 50 MCG/HR 5 mls/hr IV.SIG TITRATE PRN Rx #:[id number] Oral 0 / 0 Tube Feeding 69 / 69 Tube Irrigant 120 / 120 Output: Urine 700 / 700 Other: Post Void Residual 500 Date of Last Bowel Movement 02/02/18 02/02/18 # Bowel Movements 0 Result Diagrams: 02/04/18 04:04 02/04/18 04:04 Objective Remarks: GENERAL: Frail female. intubated, sedated, critically ill. HEENT: nc. at. perrl. Eyes without icterus. mmm. NECK: Without adenopathy or thyroid enlargement. trachea midline. CHEST: Scattered rhonchi, wheeze bilaterally, improving, prvc, tv 450, rate 16 , peep 5 CARDIAC: normal rate, regular rhythm. sinus. Hypotension on Levophed ABDOMEN: soft, nontender, nondistended. no guarding. EXTREMITIES: No clubbing, cyanosis, or edema. NEURO: RASS -3. sedated, intubated. No obvious focal deficits Assessment and Plan - Assessment and Plan Plan: Assessment: 67yF with acute hypoxic and hypercarbic respiratory failure most likely secondary to acute COPD exacerbation. Plan by systems: Neurologic: Acute metabolic encephalopathy CO2 narcosis/Hypercarbic encephalopathy - propofol, fentanyl for goal RASS -2. - daily sedation vacations Respiratory: acute, severe COPD exacerbation acute hypercarbic and hypoxic respiratory failure - iv steroids - Scheduled and prn nebs - IV and inhaled corticosteroid - vent bundle - hob elevated - daily SBTs - wean fio2 for goal spo2 > 90% Cardiovascular: hypotension - likely associated with sedation - NS bolus and vasopressors to maintain end-organ perfusion. -Antibiotics as below Renal: - Strict I/Os - no indication for man at this time. FEN/GI: Acute protein calorie malnutrition- severe - OG tube, started on tube feeds - ICU electrolyte protocol - AM cmp Heme/ID: -Continue cefepime and Levaquin until cultures are back - f/u culture data Endocrine: Diabetes -- SSI Prophylaxis: GI Prophylaxis pepcid DVT Prophylaxis -- SCDs - lovenox Lines: piv's central line and art line placed Dispo: remain in ICU. critically ill. Level 3
--- NOTE | 2018-02-04 11:44 | P.DIET ---
Nutritional Evaluation Type of nutrition evaluation: initial Nutrition consult regarding: Tube Feeding Screening comments: 02/03 Objective - Diagnosis COPD Exacerbation - Objective % IBW: 88 (IBW: 115lbs) Body Weight Used for Calculations: Actual (46.1kg) Energy Needs - Lower Range (kCal/kg): 30 Energy Needs - Upper Range (kCal/kg): 35 Lower Limit kCal/kg (kCals): 1,383 Upper Limit kCal/kg (kCals): 1,614 Lower Limit Protein Factor (Grams per Kg): 1.2 Upper Limit Protein Factor (Grams per Kg): 1.4 Lower Protein Needs (Protein): 55 Upper Protein Needs (Protein): 69 Dietitian Reviewed in Medical Record: Curent medications, Intake & Output, Labs , Medical history, Tube feeding Diet Order: NPO Objective Comments: PMH: COPD, DM, HTN, HLD, Afib Med include: propofol Labs include: Glu 159, POC Glu 263, 247, 213 Assessment Assessment: Pt at nutritional risk r/t current clinical status and need for a TF for nutrition support. Pt intubated and sedated on propofol which adds kcals (1.1/ml ) when running. Pt's nutritional needs as assessed above. TF Glucerna 1.5 with goal rate 45ml/hr will provide 1620kcals, 89gms protein and 820mls free water. This is adequate to meet pt's nutritional needs at this time. Will monitor TF tolerance, clinical course. Recommendations: TF Glucerna 1.5 with goal rate 45ml/hr Dietitian to Monitor: Lab values, Glucose level, Intake & Output, Tube feeding tolerance, Weight change, Medical course
[2018-02-04] MEDS: hydrALAZINE HCl Inj 20 MG/ML Vial IV.PUSH PRN ×2 (14:50→18:35)
--- NOTE | 2018-02-04 16:11 | P.PN ---
Subjective Interval history: ALERT EXTUBATED MILDLY TACHYPNEIC Physical Exam Vital signs: Vital Signs 02/03/18 19:46 02/03/18 19:47 02/03/18 19:53 Temperature Pulse Rate 82 91 H Respiratory Rate 14 14 6 L Blood Pressure Pulse Oximetry 100 100 02/03/18 20:00 02/03/18 20:20 02/03/18 20:40 Temperature 97.8 F Pulse Rate 93 H 92 H 90 Respiratory Rate 14 14 14 Blood Pressure 116/57 L 151/70 H 150/72 H Pulse Oximetry 98 99 99 02/03/18 21:00 02/03/18 21:20 02/03/18 21:40 Temperature Pulse Rate 96 H 95 H 90 Respiratory Rate 14 15 14 Blood Pressure 131/64 120/60 136/67 Pulse Oximetry 99 98 99 02/03/18 22:00 02/03/18 22:20 02/03/18 22:40 Temperature Pulse Rate 90 85 87 Respiratory Rate 14 14 14 Blood Pressure 119/60 156/72 H 116/60 Pulse Oximetry 98 100 99 02/03/18 23:00 02/03/18 23:20 02/03/18 23:26 Temperature Pulse Rate 83 82 83 Respiratory Rate 14 14 14 Blood Pressure 155/68 H 140/68 Pulse Oximetry 99 100 02/03/18 23:27 02/03/18 23:40 02/04/18 00:00 Temperature 97.5 F L Pulse Rate 92 H 92 H Respiratory Rate 14 14 14 Blood Pressure 122/62 135/70 Pulse Oximetry 100 99 100 02/04/18 00:20 02/04/18 00:40 02/04/18 01:00 Temperature Pulse Rate 94 H 88 85 Respiratory Rate 14 14 14 Blood Pressure 105/61 139/67 138/66 Pulse Oximetry 99 99 100 02/04/18 01:20 02/04/18 01:40 02/04/18 02:00 Temperature Pulse Rate 84 82 84 Respiratory Rate 14 14 14 Blood Pressure 110/61 113/62 113/60 Pulse Oximetry 99 100 99 02/04/18 02:30 02/04/18 03:00 02/04/18 03:30 Temperature Pulse Rate 79 80 79 Respiratory Rate 14 14 14 Blood Pressure 133/68 103/57 L 98/56 L Pulse Oximetry 100 100 100 02/04/18 03:51 02/04/18 03:53 02/04/18 04:00 Temperature 97.4 F L Pulse Rate 76 85 Respiratory Rate 14 14 14 Blood Pressure 105/58 L Pulse Oximetry 100 100 02/04/18 04:30 02/04/18 07:00 02/04/18 07:34 Temperature Pulse Rate 88 76 Respiratory Rate 14 14 14 Blood Pressure 134/64 Pulse Oximetry 99 02/04/18 08:00 02/04/18 09:00 02/04/18 10:00 Temperature 98.5 F Pulse Rate 91 H 116 H 99 H Respiratory Rate 14 Blood Pressure 103/58 L Pulse Oximetry 96 02/04/18 10:49 02/04/18 10:50 02/04/18 12:00 Temperature Pulse Rate 86 81 Respiratory Rate 14 14 Blood Pressure Pulse Oximetry 99 02/04/18 12:04 02/04/18 12:31 02/04/18 14:30 Temperature 98.8 F Pulse Rate 81 114 H Respiratory Rate 14 18 Blood Pressure 111/57 L Pulse Oximetry 99 99 Intake & Output 02/03/18 02/04/18 02/04/18 18:59 06:59 18:59 Intake Total 2950 / 2950 989 / 989 Output Total 700 / 700 Balance 2250 / 2250 989 / 989 Weight 47.3 kg Intake: IV 2950 / 2950 800 / 800 Diprivan 1000 mg/100 ml Inj 1, 100 / 100 100 / 100 000 mg In 100 ml @ 5 MCG/KG/MIN 1.361 mls/hr IV.CONT TITRATE PRN Rx#:[id number] Maxipime Inj 2,000 MG In NS Inj 100 / 100 200 / 200 100 ML @ 200 mls/hr IV.SIG Q8H [facility] Rx#:[id number] Levophed-Dextrose 4 mg/250 ml 250 / 250 250 / 250 Drip 4 mg In 250 ml @ 2 MCG/MIN 7.5 mls/hr IV.SIG TITRATE PRN Rx#:[id number] NS Inj 1,000 ML @ 1000 mls/hr 1999 / 1999 IV.SIG BOLUS [facility] Rx#:[id number] fentaNYL 10 mcg/mL Premix Drip 500 / 500 250 / 250 2,500 mcg In 250 ml @ 50 MCG/HR 5 mls/hr IV.SIG TITRATE PRN Rx #:[id number] Oral 0 / 0 Tube Feeding 69 / 69 Tube Irrigant 120 / 120 Output: Urine 700 / 700 Other: Post Void Residual 500 Date of Last Bowel Movement 02/02/18 02/02/18 02/02/18 # Bowel Movements 0 Narrative: GENERAL: Frail female. intubated, sedated, critically ill. HEENT: nc. at. perrl. Eyes without icterus. mmm. NECK: Without adenopathy or thyroid enlargement. trachea midline. CHEST: Scattered rhonchi, wheeze bilaterally, decreased breath sounds, prvc, tv 450, rate 16, peep 5, fio2 35%. spo2 96%. CARDIAC: normal rate, regular rhythm. sinus. ABDOMEN: soft, nontender, nondistended. no guarding. EXTREMITIES: No clubbing, cyanosis, or edema. NEURO: RASS -3. sedated, intubated. - Urinary Catheter Management Straight Cath placed during this visit: no Results - Labs CBC & Chem 7: 02/04/18 04:04 02/04/18 04:04 Laboratory Results - last 24 hr 02/03/18 02/04/18 02/04/18 18:07 04:04 04:04 WBC 10.5 RBC 3.50 L Hgb 10.0 L Hct 30.3 L MCV 86.7 MCH 28.4 MCHC 32.8 RDW 18.6 H Plt Count 217 MPV 9.2 Sodium 143 Potassium 3.5 Chloride 110 H Carbon Dioxide 23.4 Anion Gap 10 BUN 16 Creatinine 0.84 Estimated GFR 82 L POC Glucose 213 H Random Glucose 159 H Calcium 7.4 L* D Calcium Adj for Albumin 8.6 Albumin 2.5 L 02/04/18 15:36 WBC RBC Hgb Hct MCV MCH MCHC RDW Plt Count MPV Sodium Potassium Chloride Carbon Dioxide Anion Gap BUN Creatinine Estimated GFR POC Glucose 198 H Random Glucose Calcium Calcium Adj for Albumin Albumin Microbiology 02/03/18 01:04 Sputum - Endotracheal Gram Stain - Final 02/03/18 01:04 Sputum - Endotracheal Sputum Culture - Preliminary Rare growth normal respiratory palma at 24 hours 02/02/18 05:25 Blood - Peripheral Aerobic Blood Culture - Preliminary No growth in 2 days 02/02/18 05:25 Blood - Peripheral Anaerobic Blood Culture - Preliminary No growth in 2 days 02/02/18 05:20 Blood - Peripheral Aerobic Blood Culture - Preliminary No growth in 2 days 02/02/18 05:20 Blood - Peripheral Anaerobic Blood Culture - Preliminary No growth in 2 days Assessment and Plan - Plan COPD EXACERBATION OFF VENT SUPPORT ATELECTATIC CHANGE PLAN O2 NEEDED PULM TOILET BRONCHODILATOR THERAPY F/U CXRAY
[2018-02-04] MEDS: Enoxaparin Inj 40 MG/0.4 ML Syringe SQ SCH (20:26)
[2018-02-04] MEDS: Labetalol HCl Inj 100 MG/20 ML Vial IV.PUSH PRN (21:03)
[2018-02-05] MEDS: Oral Hygiene Kit OROPHARYNG SCH ×5 (00:19→23:48)
[2018-02-05] MEDS: MethylPREDNISolone Sod Succinate Inj 40 MG/ML Vial IV.PUSH SCH ×5 (00:19→23:49)
[2018-02-05] MEDS: hydrALAZINE HCl Inj 20 MG/ML Vial IV.PUSH PRN ×2 (00:19→13:46)
[2018-02-05] MEDS: Labetalol HCl Inj 100 MG/20 ML Vial IV.PUSH PRN (02:25)
[2018-02-05 02:28] LABS: ABG Base Excess -0.7 mmol/L (-2-2); ABG PCO2 72 mmHg (38-42); ABG PO2 112 mmHG (61-120)
[2018-02-05 05:11] LABS: ABG Base Excess -0.4 mmol/L (-2-2); ABG PCO2 57 mmHg (38-42); ABG PO2 105 mmHG (61-120)
--- NOTE | 2018-02-05 08:40 | P.PNCC ---
Subjective Subjective Remarks/Hospital Course: 67yF with history of COPD was originally admitted by the Hospitalist service for hypercapnea and COPD exacerbation. Per their admission note: The patient is a 67-year-old female with a known history of COPD, DM, HTN, HLD, Afib admitted with increasing shortness of breath, associated hypoxemia, hospitalized for same multiple times. Patient is with worsening shortness of breath, using accessory repiratory muscle in tripod position. ABG is reassuring , however due to increased labored breathing she is placed on bipap.The patient follow with Dr Sterling weems. Patient received nebs, solumedrol. Evaluated by pulm. Patient is transfered to ICU. Noted with elevated BP. Patient still with labored breathing dispite bipap use. Patient reports she smokes a pack of cigarettes a day for over 30 years, continues to smoke to the time of hospitalization. She was counselled extensively regarding smoking cessations , she expressed understanding, and will try to quit, however says is hard to quit. despite aggressive non-invasive ventilatory strategies, patient decompensated and was emergently intubated by Dr. Bloom (see separate procedural documentation) . patient is intubated and cannot provide any additional history. ROS unobtainable. the remainder of the history taken from prior medical record documentation. SUBJ 02/03: Remains intubated sedated. Currently synchronous with the ventilator. However requiring Levophed to maintain map above 65 currently on 6 mcg. This could be sedation related or due to sepsis. Cultures are pending at this time 02/04: Continues to be intubated sedated moves all extremities. Requires Levophed to keep map above 65. Chest exam reveals improved bilateral wheezing. 02/05: Extubated yesterday initially tolerated well however overnight became more short of breath altered. Had ABG showed a pH of 7.19 PCO2 72. Placed on BiPAP with improvement in symptoms currently slightly lethargic appears more awake pH at 5 AM was 7.127 PCO2 has come down to 57. Continue BiPAP may require reintubation but appears stable on BiPAP at this time Objective Vital Signs / I&O: Vital Signs 02/04/18 09:00 02/04/18 09:30 02/04/18 10:00 Temperature Pulse Rate 116 H 99 H Respiratory Rate 21 Blood Pressure 108/58 L 140/71 Pulse Oximetry 99 02/04/18 10:30 02/04/18 10:49 02/04/18 10:50 Temperature Pulse Rate 92 H 86 Respiratory Rate 14 14 14 Blood Pressure 102/55 L Pulse Oximetry 98 99 02/04/18 11:00 02/04/18 11:30 02/04/18 12:00 Temperature Pulse Rate 85 84 81 Respiratory Rate 14 14 14 Blood Pressure 115/57 L 121/59 L 111/57 L Pulse Oximetry 99 99 99 02/04/18 12:04 02/04/18 12:31 02/04/18 13:00 Temperature 98.8 F Pulse Rate 81 110 H Respiratory Rate 14 11 L Blood Pressure 111/57 L Pulse Oximetry 99 99 99 02/04/18 14:00 02/04/18 14:25 02/04/18 14:30 Temperature Pulse Rate 108 H 113 H 114 H Respiratory Rate 12 13 18 Blood Pressure 176/83 H 190/86 H Pulse Oximetry 98 98 02/04/18 14:40 02/04/18 14:46 02/04/18 15:00 Temperature Pulse Rate 111 H 111 H 114 H Respiratory Rate 10 L 12 13 Blood Pressure 169/76 H 189/84 H 176/79 H Pulse Oximetry 97 98 98 02/04/18 15:09 02/04/18 15:30 02/04/18 16:00 Temperature 98.3 F Pulse Rate 119 H 120 H 119 H Respiratory Rate 22 21 12 Blood Pressure 165/85 H 162/74 H 164/75 H Pulse Oximetry 98 96 96 02/04/18 16:30 02/04/18 17:00 02/04/18 17:01 Temperature Pulse Rate 117 H 125 H 125 H Respiratory Rate 20 41 H 35 H Blood Pressure 173/77 H 175/77 H Pulse Oximetry 98 95 95 02/04/18 17:30 02/04/18 18:00 02/04/18 18:30 Temperature Pulse Rate 114 H 114 H 118 H Respiratory Rate 23 22 14 Blood Pressure 181/87 H 174/95 H 207/88 H Pulse Oximetry 93 L 97 87 L 02/04/18 19:00 02/04/18 19:30 02/04/18 19:32 Temperature Pulse Rate 116 H 124 H 124 H Respiratory Rate 27 H 24 26 H Blood Pressure 160/85 H 136/87 Pulse Oximetry 95 97 97 02/04/18 20:00 02/04/18 20:30 02/04/18 20:32 Temperature 98.5 F Pulse Rate 120 H 117 H 119 H Respiratory Rate 13 18 24 Blood Pressure 173/90 H 190/88 H 191/86 H Pulse Oximetry 97 97 98 02/04/18 21:00 02/04/18 21:30 02/04/18 22:00 Temperature Pulse Rate 116 H 91 H 94 H Respiratory Rate 16 16 15 Blood Pressure 200/88 H 145/76 H 165/85 H Pulse Oximetry 98 99 98 02/04/18 22:30 02/04/18 23:00 02/04/18 23:30 Temperature Pulse Rate 100 H 101 H 103 H Respiratory Rate 15 30 H 24 Blood Pressure 175/78 H 171/80 H 185/86 H Pulse Oximetry 98 95 97 02/05/18 00:00 02/05/18 00:04 02/05/18 00:30 Temperature 98.2 F Pulse Rate 100 H 101 H 109 H Respiratory Rate 16 25 H 18 Blood Pressure 199/86 H 164/79 H Pulse Oximetry 98 98 02/05/18 01:00 02/05/18 01:30 02/05/18 02:00 Temperature Pulse Rate 109 H 107 H 106 H Respiratory Rate 17 17 17 Blood Pressure 175/80 H 175/77 H 181/81 H Pulse Oximetry 98 98 98 02/05/18 02:30 02/05/18 02:39 02/05/18 03:00 Temperature Pulse Rate 90 87 Respiratory Rate 19 19 Blood Pressure 139/67 147/70 H Pulse Oximetry 98 99 99 02/05/18 03:30 02/05/18 03:58 02/05/18 04:00 Temperature 97 F L Pulse Rate 88 88 90 Respiratory Rate 18 19 19 Blood Pressure 154/75 H 163/76 H Pulse Oximetry 100 100 99 02/05/18 04:30 02/05/18 08:20 02/05/18 08:21 Temperature Pulse Rate 83 90 Respiratory Rate 10 L 14 Blood Pressure 148/67 H Pulse Oximetry 100 99 Intake & Output 02/04/18 02/05/18 02/05/18 18:59 06:59 18:59 Intake Total 525 / 525 350 / 350 Output Total 950 / 950 1025 / 1025 Balance -425 / -425 -675 / -675 Weight 47 kg Intake: IV 100 / 100 350 / 350 Maxipime Inj 2,000 MG In NS Inj 100 / 100 200 / 200 100 ML @ 200 mls/hr IV.SIG Q8H [facility] Rx#:[id number] Levaquin 750 mg Premix Inj 150 150 / 150 ML @ 100 mls/hr IV.SIG Q48H [facility] Rx#:[id number] Oral 0 / 0 Tube Feeding 275 / 275 Tube Irrigant 150 / 150 Output: Urine 200 / 200 Urine Amount (Catheter) 950 / 950 825 / 825 Straight 950 / 950 825 / 825 Other: Date of Last Bowel Movement 02/02/18 02/02/18 # Bowel Movements 0 Result Diagrams: 02/04/18 04:04 02/04/18 04:04 Objective Remarks: GENERAL: Frail female. critically ill. on BiPAP HEENT: nc. at. perrl. Eyes without icterus. mmm. NECK: Without adenopathy or thyroid enlargement. trachea midline. CHEST: Scattered rhonchi, wheeze bilaterally, on BiPAP CARDIAC: normal rate, regular rhythm. sinus. Hypotensive ABDOMEN: soft, nontender, nondistended. no guarding. EXTREMITIES: No clubbing, cyanosis, or edema. NEURO: Patient is alert awake but lethargic on BiPAP. Wakes up easily follows commands no focal deficits Assessment and Plan - Assessment and Plan Plan: Assessment: 67yF with acute hypoxic and hypercarbic respiratory failure most likely secondary to acute COPD exacerbation. Plan by systems: Neurologic: Acute metabolic encephalopathy CO2 narcosis/Hypercarbic encephalopathy - Minimize sedation while on BiPAP -Altered mental status secondary to CO2 narcosis Respiratory: acute, severe COPD exacerbation acute hypercarbic and hypoxic respiratory failure - Extubated yesterday initially tolerated well overnight developed hypercapnic respiratory failure - Placed on overnight with marginal improvement in clinical status and ABG - Repeat ABG at 9 AM to evaluate for consistent improvement - Scheduled and prn nebs - IV and inhaled corticosteroid - hob elevated - wean fio2 for goal spo2 > 90% Cardiovascular: hypotension-resolved Currently hypertensive - likely associated with sedation - Currently hypertensive - Antibiotics as below Renal: - Strict I/Os - no indication for man at this time. FEN/GI: Acute protein calorie malnutrition- severe - Keep n.p.o. due to respiratory failure requiring BiPAP - ICU electrolyte protocol - AM cmp Heme/ID: -Continue cefepime and DC Levaquin - f/u culture data Endocrine: Diabetes -- SSI Prophylaxis: GI Prophylaxis pepcid DVT Prophylaxis -- SCDs - lovenox Lines: piv's central line and art line placed Dispo: remain in ICU. critically ill. CCT 35 after extubation yesterday patient developed worsening respiratory failure hypercapnic. Currently tolerating BiPAP however she is at risk of acute decompensation requiring mechanical ventilation again. Closely monitor in the ICU
[2018-02-05 08:54] LABS: ABG Base Excess 0.6 mmol/L (-2-2); ABG PCO2 48 mmHg (38-42); ABG PO2 113 mmHG (61-120)
[2018-02-05] MEDS: Chlorhexidine 0.12% Oral Kit 15 ML UDC OROPHARYNG SCH ×2 (09:51→20:06)
[2018-02-05] MEDS: Insulin Detemir Inj 1,000 UNIT/10 ML Vial SQ SCH ×2 (10:26→20:07)
[2018-02-05] MEDS: Digoxin 250 MCG Tablet PO SCH (10:28)
[2018-02-05] MEDS: Senna/Docusate Sodium 8.6/50 MG Tablet PO SCH ×2 (10:28→20:07)
[2018-02-05] MEDS: Famotidine 20 MG Tablet PO SCH ×2 (10:28→20:07)
[2018-02-05] MEDS: Gabapentin 300 MG Capsule PO SCH ×2 (10:28→20:07)
[2018-02-05] MEDS: Pantoprazole Sodium 20 MG DR Tablet PO SCH (10:29)
[2018-02-05] MEDS: Budesonide-Formoterol 160/4.5 MCG 6 GM Inhaler INH SCH ×3 (10:29→23:47)
[2018-02-05] MEDS ORDERED: Etomidate Inj 40 MG/20 ML Vial IV.PUSH ONE (15:12)
[2018-02-05] MEDS ORDERED: fentaNYL Citrate Inj 250 MCG/5 ML Ampul IV.PUSH STA (15:12)
[2018-02-05] MEDS: fentaNYL 10 mcg/mL Premix Drip 2,500 MCG/250 ML BAG IV.SIG PRN (15:38)
[2018-02-05] MEDS: Propofol 1000 mg/100 ml Inj 1,000 MG/100 ML BOTTLE IV.CONT PRN (15:39)
--- NOTE | 2018-02-05 15:42 | P.PCN ---
Date of procedure: 02/05/18 Procedure: Procedure: Endotracheal intubation Preop diagnosis: Acute resp failure Postop diagnosis: same Sedation used: Etomidate 40 mg, fentanyl 250 mcg, Rocuronium mg IV Procedure: Patient was preoxygenated with 100% oxygen via Ambu bag with bag mask ventilation, following induction of sedation and neuromuscular blockade, direct laryngoscopy was performed using a glidescope with good visualization of vocal cords. An 8 Mongolian ET tube was passed through the vocal cords under direct visualization up to the 22 centimeter danielle and after inflating cuff of ET tube, correct placement was confirmed using bagging with good color change on CO2 detector, 5 point auscultation and chest rise with ventilation. Patient was connected to mechanical ventilation. Patient tolerated the procedure well with no immediate complications noted. Postprocedure chest x-ray was ordered.
--- NOTE | 2018-02-05 16:08 | XR ---
EXAM DATE: 02/05/2018 4:04 PM EST AGE/SEX: 67 years / Female INDICATIONS: Post intubation CLINICAL DATA: This is the patient's subsequent encounter. Patient reports that signs and symptoms h ave been present for 4 - 6 days and indicates a pain score of Nonresponsive. MEDICAL/SURGICAL HISTORY: . : Diabetes mellitus type II. Chronic obstructive pulmonary disease. Asthma. Hypertension. A-fib. None. COMPARISON: C, CHEST 1V SINGLE AP, 02/03/2018. . FINDINGS: The support devices remain in place. The lungs are hyperaerated bilaterally. No focal or acute pulmon solo infiltrates are demonstrated. The endotracheal tube appears to be in good position overlying the tracheal air shadow. There is no evidence of pneumothorax. No significant change compared to the prio r study. CONCLUSION: 1. The ET tube appears to be in good position. No evidence of pneumothorax. 2. The lungs are hyper aerated and grossly clear. Electronically signed by: Calvin Eagle MD Board Certified Radiologist 02/05/2018 4:07 PM EST
[2018-02-05 16:31] LABS: ABG Base Excess -1.2 mmol/L (-2-2); ABG PCO2 38 mmHg (38-42); ABG PO2 175 mmHG (61-120)
[2018-02-05] MEDS: Enoxaparin Inj 40 MG/0.4 ML Syringe SQ SCH (20:05)
[2018-02-06] MEDS: Oral Hygiene Kit OROPHARYNG SCH ×3 (03:17→18:16)
[2018-02-06] MEDS: Propofol 1000 mg/100 ml Inj 1,000 MG/100 ML BOTTLE IV.CONT PRN ×3 (03:24→22:17)
[2018-02-06] MEDS: MethylPREDNISolone Sod Succinate Inj 40 MG/ML Vial IV.PUSH SCH ×3 (05:20→18:16)
[2018-02-06] MEDS: Budesonide-Formoterol 160/4.5 MCG 6 GM Inhaler INH SCH ×2 (07:50→19:36)
[2018-02-06] MEDS: Digoxin 250 MCG Tablet PO SCH (08:20)
[2018-02-06] MEDS: Pantoprazole Sodium 20 MG DR Tablet PO SCH (08:20)
[2018-02-06] MEDS: Gabapentin 300 MG Capsule PO SCH ×2 (08:20→20:00)
[2018-02-06] MEDS: Famotidine 20 MG Tablet PO SCH ×2 (08:20→20:00)
[2018-02-06] MEDS: Insulin Detemir Inj 1,000 UNIT/10 ML Vial SQ SCH ×2 (08:23→20:00)
[2018-02-06] MEDS: Chlorhexidine 0.12% Oral Kit 15 ML UDC OROPHARYNG SCH ×2 (08:23→19:54)
[2018-02-06] MEDS: Senna/Docusate Sodium 8.6/50 MG Tablet PO SCH ×2 (08:24→20:00)
[2018-02-06] MEDS: fentaNYL 10 mcg/mL Premix Drip 2,500 MCG/250 ML BAG IV.SIG PRN ×2 (10:08→19:59)
--- NOTE | 2018-02-06 12:25 | P.PNCC ---
Subjective Subjective Remarks/Hospital Course: 67yF with history of COPD was originally admitted by the Hospitalist service for hypercapnea and COPD exacerbation. Per their admission note: The patient is a 67-year-old female with a known history of COPD, DM, HTN, HLD, Afib admitted with increasing shortness of breath, associated hypoxemia, hospitalized for same multiple times. Patient is with worsening shortness of breath, using accessory repiratory muscle in tripod position. ABG is reassuring , however due to increased labored breathing she is placed on bipap.The patient follow with Dr Sterling weems. Patient received nebs, solumedrol. Evaluated by pulm. Patient is transfered to ICU. Noted with elevated BP. Patient still with labored breathing dispite bipap use. Patient reports she smokes a pack of cigarettes a day for over 30 years, continues to smoke to the time of hospitalization. She was counselled extensively regarding smoking cessations , she expressed understanding, and will try to quit, however says is hard to quit. despite aggressive non-invasive ventilatory strategies, patient decompensated and was emergently intubated by Dr. Bloom (see separate procedural documentation) . patient is intubated and cannot provide any additional history. ROS unobtainable. the remainder of the history taken from prior medical record documentation. SUBJ 02/03: Remains intubated sedated. Currently synchronous with the ventilator. However requiring Levophed to maintain map above 65 currently on 6 mcg. This could be sedation related or due to sepsis. Cultures are pending at this time 02/04: Continues to be intubated sedated moves all extremities. Requires Levophed to keep map above 65. Chest exam reveals improved bilateral wheezing. 02/05: Extubated yesterday initially tolerated well however overnight became more short of breath altered. Had ABG showed a pH of 7.19 PCO2 72. Placed on BiPAP with improvement in symptoms currently slightly lethargic appears more awake pH at 5 AM was 7.127 PCO2 has come down to 57. Continue BiPAP may require reintubation but appears stable on BiPAP at this time 02/06: Reintubated on 02/05 for worsening resp distress. Objective Vital Signs / I&O: Vital Signs 02/05/18 13:00 02/05/18 14:00 02/05/18 14:16 Temperature Pulse Rate 90 103 H 107 H Respiratory Rate 50 H 51 H 33 H Blood Pressure Pulse Oximetry 99 96 95 02/05/18 15:00 02/05/18 15:52 02/05/18 16:00 Temperature 97.5 F L Pulse Rate 109 H 86 Respiratory Rate 43 H 18 18 Blood Pressure Pulse Oximetry 99 100 100 02/05/18 19:38 02/05/18 20:00 02/05/18 23:40 Temperature 98.6 F Pulse Rate 104 H 98 H 99 H Respiratory Rate 18 18 18 Blood Pressure Pulse Oximetry 98 100 100 02/06/18 00:00 02/06/18 03:00 02/06/18 04:00 Temperature 98.6 F 98.3 F Pulse Rate 101 H 90 89 Respiratory Rate 18 18 18 Blood Pressure Pulse Oximetry 100 100 02/06/18 04:02 02/06/18 07:00 02/06/18 07:51 Temperature Pulse Rate 83 Respiratory Rate 18 18 18 Blood Pressure 135/70 Pulse Oximetry 100 100 100 02/06/18 08:00 02/06/18 09:00 02/06/18 11:00 Temperature Pulse Rate 81 85 80 Respiratory Rate 18 18 18 Blood Pressure 143/73 H 136/69 Pulse Oximetry 100 100 02/06/18 11:29 Temperature Pulse Rate Respiratory Rate 18 Blood Pressure Pulse Oximetry 100 Intake & Output 02/05/18 02/06/18 02/06/18 18:59 06:59 18:59 Intake Total 450 / 450 360 / 360 250 / 250 Output Total 400 / 400 Balance 50 / 50 360 / 360 250 / 250 Weight 45.6 kg Intake: IV 450 / 450 300 / 300 250 / 250 Diprivan 1000 mg/100 ml Inj 1, 100 / 100 100 / 100 000 mg In 100 ml @ 5 MCG/KG/MIN 1.361 mls/hr IV.CONT TITRATE PRN Rx#:[id number] Maxipime Inj 2,000 MG In NS Inj 100 / 100 200 / 200 100 ML @ 200 mls/hr IV.SIG Q8H [facility] Rx#:[id number] fentaNYL 10 mcg/mL Premix Drip 250 / 250 250 / 250 2,500 mcg In 250 ml @ 50 MCG/HR 5 mls/hr IV.SIG TITRATE PRN Rx #:[id number] Oral 0 / 0 Tube Feeding 0 / 0 Tube Irrigant 60 / 60 Output: Urine 400 / 400 Other: # Voids 3 # Incontinent Voids 3 Date of Last Bowel Movement 02/02/18 02/06/18 02/06/18 # Bowel Movements 0 1 Result Diagrams: 02/04/18 04:04 02/04/18 04:04 Objective Remarks: GENERAL: Frail female. critically ill. orally intubated on mech vent. HEENT: nc. at. perrl. Eyes without icterus. NECK: Without adenopathy or thyroid enlargement. trachea midline. CHEST: on mech vent, Scattered rhonchi, wheeze bilaterally CARDIAC: normal rate, regular rhythm. sinus. Hypotensive ABDOMEN: soft, nontender, nondistended. no guarding. EXTREMITIES: No clubbing, cyanosis, or edema. NEURO: sedated, orally intubated, arouses on lightening sedation. moves all extremities Assessment and Plan - Assessment and Plan Plan: Assessment: 67yF with acute hypoxic and hypercarbic respiratory failure most likely secondary to acute COPD exacerbation. Plan by systems: Neurologic: Acute metabolic encephalopathy CO2 narcosis/Hypercarbic encephalopathy - Propofol for sedation, daily sedation vacation. -Altered mental status secondary to CO2 narcosis Respiratory: acute, severe COPD exacerbation acute hypercarbic and hypoxic respiratory failure - Extubated 02/04 initially tolerated well overnight developed hypercapnic respiratory failure - Required reintubation for worsening resp satus despite BIPAP on 02/05 - Scheduled and prn nebs - IV and inhaled corticosteroid - hob elevated - wean fio2 for goal spo2 > 90% Cardiovascular: hypotension-resolved Currently hypertensive - BP WNL with sedation. - Antibiotics as below Renal: - Strict I/Os - no indication for man at this time. FEN/GI: Acute protein calorie malnutrition- severe - continue tube feeds - ICU electrolyte protocol - AM cmp Heme/ID: -Continue cefepime, off Levaquin - f/u culture data Endocrine: Diabetes -- SSI Prophylaxis: GI Prophylaxis pepcid DVT Prophylaxis -- SCDs - lovenox Lines: piv's central line and art line Dispo: remain in ICU. critically ill. CCT 35 min excluding procedures.
[2018-02-06] MEDS: Enoxaparin Inj 40 MG/0.4 ML Syringe SQ SCH (19:54)
[2018-02-07] MEDS: MethylPREDNISolone Sod Succinate Inj 40 MG/ML Vial IV.PUSH SCH ×4 (00:04→18:50)
[2018-02-07] MEDS: Oral Hygiene Kit OROPHARYNG SCH ×4 (00:04→18:49)
[2018-02-07] MEDS: Propofol 1000 mg/100 ml Inj 1,000 MG/100 ML BOTTLE IV.CONT PRN ×3 (04:32→18:52)
[2018-02-07] MEDS: fentaNYL 10 mcg/mL Premix Drip 2,500 MCG/250 ML BAG IV.SIG PRN ×2 (06:15→17:00)
[2018-02-07] MEDS: Chlorhexidine 0.12% Oral Kit 15 ML UDC OROPHARYNG SCH ×2 (08:30→21:04)
[2018-02-07] MEDS: Labetalol HCl Inj 100 MG/20 ML Vial IV.PUSH PRN (08:30)
[2018-02-07] MEDS: Pantoprazole Sodium 20 MG DR Tablet PO SCH (08:31)
[2018-02-07] MEDS: Famotidine 20 MG Tablet PO SCH ×2 (08:31→21:03)
[2018-02-07] MEDS: Digoxin 250 MCG Tablet PO SCH (08:31)
[2018-02-07] MEDS: Gabapentin 300 MG Capsule PO SCH ×2 (08:31→21:03)
[2018-02-07] MEDS: Insulin Detemir Inj 1,000 UNIT/10 ML Vial SQ SCH ×2 (08:31→21:03)
[2018-02-07] MEDS: Senna/Docusate Sodium 8.6/50 MG Tablet PO SCH ×2 (09:54→21:03)
[2018-02-07] MEDS ORDERED: Dextrose 50% in Water 50 ML Vial IV.PUSH PRN (10:16)
[2018-02-07] MEDS: hydrALAZINE HCl Inj 20 MG/ML Vial IV.PUSH PRN (12:30)
--- NOTE | 2018-02-07 13:07 | P.PN ---
Subjective Interval history: Sedated and on vent support. FIO2 40 %. was hypercapnic yesterday. Physical Exam Vital signs: Vital Signs 02/06/18 14:00 02/06/18 15:00 02/06/18 15:03 Temperature Pulse Rate 83 83 84 Respiratory Rate 18 18 18 Blood Pressure 150/75 H 171/85 H 171/83 H Pulse Oximetry 100 100 100 02/06/18 15:14 02/06/18 16:00 02/06/18 17:00 Temperature Pulse Rate 99 H 88 Respiratory Rate 18 18 18 Blood Pressure 132/71 162/78 H Pulse Oximetry 100 100 100 02/06/18 18:00 02/06/18 19:00 02/06/18 19:36 Temperature Pulse Rate 88 87 84 Respiratory Rate 18 18 18 Blood Pressure 174/90 H 127/65 Pulse Oximetry 100 100 100 02/06/18 19:39 02/06/18 20:00 02/06/18 21:00 Temperature 98.6 F Pulse Rate 83 87 100 H Respiratory Rate 18 18 6 L Blood Pressure 142/68 H 144/70 H Pulse Oximetry 100 99 02/06/18 22:00 02/06/18 23:00 02/07/18 00:00 Temperature 99.8 F H Pulse Rate 95 H 93 H 92 H Respiratory Rate 16 18 18 Blood Pressure 131/63 137/65 126/60 Pulse Oximetry 100 100 99 02/07/18 00:05 02/07/18 01:00 02/07/18 02:00 Temperature Pulse Rate 89 86 Respiratory Rate 18 18 18 Blood Pressure 144/68 H 157/71 H Pulse Oximetry 99 99 99 02/07/18 03:00 02/07/18 04:00 02/07/18 04:02 Temperature 99.2 F Pulse Rate 90 89 Respiratory Rate 18 20 18 Blood Pressure 167/81 H 158/74 H Pulse Oximetry 99 100 100 02/07/18 07:00 02/07/18 07:20 02/07/18 07:46 Temperature Pulse Rate 73 76 Respiratory Rate 18 18 18 Blood Pressure 188/88 H 178/83 H Pulse Oximetry 100 100 02/07/18 08:00 02/07/18 08:37 02/07/18 09:00 Temperature Pulse Rate 69 73 67 Respiratory Rate 18 18 18 Blood Pressure 180/82 H 170/79 H 189/86 H Pulse Oximetry 100 100 100 02/07/18 09:02 02/07/18 10:00 02/07/18 12:39 Temperature Pulse Rate 66 68 Respiratory Rate 18 Blood Pressure 176/80 H Pulse Oximetry 100 100 Intake & Output 02/06/18 02/07/18 02/07/18 18:59 06:59 18:59 Intake Total 450 / 450 1567 / 1567 100 / 100 Output Total 825 / 825 Balance -375 / -375 1567 / 1567 100 / 100 Weight 46.1 kg Intake: IV 450 / 450 1050 / 1050 100 / 100 Diprivan 1000 mg/100 ml Inj 1, 100 / 100 200 / 200 100 / 100 000 mg In 100 ml @ 5 MCG/KG/MIN 1.361 mls/hr IV.CONT TITRATE PRN Rx#:[id number] Maxipime Inj 2,000 MG In NS Inj 100 / 100 200 / 200 100 ML @ 200 mls/hr IV.SIG Q8H [facility] Rx#:[id number] Levaquin 750 mg Premix Inj 150 150 / 150 ML @ 100 mls/hr IV.SIG Q48H [facility] Rx#:[id number] fentaNYL 10 mcg/mL Premix Drip 250 / 250 500 / 500 2,500 mcg In 250 ml @ 50 MCG/HR 5 mls/hr IV.SIG TITRATE PRN Rx #:[id number] Tube Feeding 397 / 397 Tube Irrigant 120 / 120 Output: Urine 225 / 225 Urine Amount (Catheter) 600 / 600 Straight 600 / 600 Other: # Voids 3 # Incontinent Voids 3 Date of Last Bowel Movement 02/06/18 02/07/18 02/06/18 # Bowel Movements 0 Narrative: GENERAL: Mid aged A/A intubated, sedated, critically ill. HEENT: PERRL Eyes without icterus. mmm. NECK: Without adenopathy or thyroid enlargement. trachea midline. CHEST: Scattered rhonchi, wheeze bilaterally, decreased breath sounds, prvc, tv 450, rate 16, peep 5, fio2 35%. spo2 96%. CARDIAC: normal rate, regular rhythm. sinus. ABDOMEN: soft, nontender, nondistended. no guarding. EXTREMITIES: No clubbing, cyanosis, or edema. NEURO:sedated, intubated. - Urinary Catheter Management Straight Cath placed during this visit: no Results - Labs CBC & Chem 7: 02/04/18 04:04 02/04/18 04:04 Laboratory Results - last 24 hr 02/06/18 02/07/18 23:51 05:39 POC Glucose 276 H 340 H Microbiology 02/02/18 05:25 Blood - Peripheral Aerobic Blood Culture - Final No growth in 5 days 02/02/18 05:25 Blood - Peripheral Anaerobic Blood Culture - Final No growth in 5 days 02/02/18 05:20 Blood - Peripheral Aerobic Blood Culture - Final No growth in 5 days 02/02/18 05:20 Blood - Peripheral Anaerobic Blood Culture - Final No growth in 5 days Assessment and Plan - Assessment (1) Respiratory failure requiring intubation Code(s): J96.90 - Respiratory failure, unspecified, unspecified whether with hypoxia or hypercapnia Status: Acute (2) Atrial fibrillation Code(s): I48.91 - Unspecified atrial fibrillation Status: Acute (3) HTN (hypertension) Code(s): I10 - Essential (primary) hypertension Status: Acute (4) Hyperlipidemia Code(s): E78.5 - Hyperlipidemia, unspecified Status: Acute (5) Diabetes Code(s): E11.9 - Type 2 diabetes mellitus without complications Status: Acute (6) Emphysema lung Code(s): J43.9 - Emphysema, unspecified Status: Acute (7) COPD (chronic obstructive pulmonary disease) Code(s): J44.9 - Chronic obstructive pulmonary disease, unspecified Status: Acute - Plan 1. Wean Vent to CPAP and FIO2 35 % 2. Nebs q6h duoneb 3. Wean sedation. 4. Continue solumedrol 40 MG IV Q6H 5. Tube feeds at 50 CC 6. CBC,BMP in am (7) COPD (chronic obstructive pulmonary disease) Qualifiers: COPD type: COPD with acute exacerbation Qualified Code(s): J44.1 - Chronic obstructive pulmonary disease with (acute) exacerbation
[2018-02-07] MEDS: Budesonide-Formoterol 160/4.5 MCG 6 GM Inhaler INH SCH ×2 (14:17→22:53)
[2018-02-07] MEDS: Insulin NovoLIN Regular Correctional Sugar Inj SQ SCH ×2 (14:18→18:50)
--- NOTE | 2018-02-07 14:24 | P.PNCC ---
Subjective Subjective Remarks/Hospital Course: 67yF with history of COPD was originally admitted by the Hospitalist service for hypercapnea and COPD exacerbation. Per their admission note: The patient is a 67-year-old female with a known history of COPD, DM, HTN, HLD, Afib admitted with increasing shortness of breath, associated hypoxemia, hospitalized for same multiple times. Patient is with worsening shortness of breath, using accessory repiratory muscle in tripod position. ABG is reassuring , however due to increased labored breathing she is placed on bipap.The patient follow with Dr Sterling weems. Patient received nebs, solumedrol. Evaluated by pulm. Patient is transfered to ICU. Noted with elevated BP. Patient still with labored breathing dispite bipap use. Patient reports she smokes a pack of cigarettes a day for over 30 years, continues to smoke to the time of hospitalization. She was counselled extensively regarding smoking cessations , she expressed understanding, and will try to quit, however says is hard to quit. despite aggressive non-invasive ventilatory strategies, patient decompensated and was emergently intubated by Dr. Bloom (see separate procedural documentation) . patient is intubated and cannot provide any additional history. ROS unobtainable. the remainder of the history taken from prior medical record documentation. SUBJ 02/03: Remains intubated sedated. Currently synchronous with the ventilator. However requiring Levophed to maintain map above 65 currently on 6 mcg. This could be sedation related or due to sepsis. Cultures are pending at this time 02/04: Continues to be intubated sedated moves all extremities. Requires Levophed to keep map above 65. Chest exam reveals improved bilateral wheezing. 02/05: Extubated yesterday initially tolerated well however overnight became more short of breath altered. Had ABG showed a pH of 7.19 PCO2 72. Placed on BiPAP with improvement in symptoms currently slightly lethargic appears more awake pH at 5 AM was 7.127 PCO2 has come down to 57. Continue BiPAP may require reintubation but appears stable on BiPAP at this time 02/06: Reintubated on 02/05 for worsening resp distress. 02/07: Sedated, orally intubated on mechanical ventilation. Objective Vital Signs / I&O: Vital Signs 02/06/18 15:00 02/06/18 15:03 02/06/18 15:14 Temperature Pulse Rate 83 84 Respiratory Rate 18 18 18 Blood Pressure 171/85 H 171/83 H Pulse Oximetry 100 100 100 02/06/18 16:00 02/06/18 17:00 02/06/18 18:00 Temperature Pulse Rate 99 H 88 88 Respiratory Rate 18 18 18 Blood Pressure 132/71 162/78 H 174/90 H Pulse Oximetry 100 100 100 02/06/18 19:00 02/06/18 19:36 02/06/18 19:39 Temperature Pulse Rate 87 84 83 Respiratory Rate 18 18 18 Blood Pressure 127/65 Pulse Oximetry 100 100 02/06/18 20:00 02/06/18 21:00 02/06/18 22:00 Temperature 98.6 F Pulse Rate 87 100 H 95 H Respiratory Rate 18 6 L 16 Blood Pressure 142/68 H 144/70 H 131/63 Pulse Oximetry 100 99 100 02/06/18 23:00 02/07/18 00:00 02/07/18 00:05 Temperature 99.8 F H Pulse Rate 93 H 92 H Respiratory Rate 18 18 18 Blood Pressure 137/65 126/60 Pulse Oximetry 100 99 99 02/07/18 01:00 02/07/18 02:00 02/07/18 03:00 Temperature Pulse Rate 89 86 90 Respiratory Rate 18 18 18 Blood Pressure 144/68 H 157/71 H 167/81 H Pulse Oximetry 99 99 99 02/07/18 04:00 02/07/18 04:02 02/07/18 07:00 Temperature 99.2 F Pulse Rate 89 73 Respiratory Rate 20 18 18 Blood Pressure 158/74 H 188/88 H Pulse Oximetry 100 100 100 02/07/18 07:20 02/07/18 07:46 02/07/18 08:00 Temperature Pulse Rate 76 69 Respiratory Rate 18 18 18 Blood Pressure 178/83 H 180/82 H Pulse Oximetry 100 100 02/07/18 08:37 02/07/18 09:00 02/07/18 09:02 Temperature Pulse Rate 73 67 66 Respiratory Rate 18 18 18 Blood Pressure 170/79 H 189/86 H Pulse Oximetry 100 100 02/07/18 10:00 02/07/18 12:39 Temperature Pulse Rate 68 Respiratory Rate 18 18 Blood Pressure 176/80 H Pulse Oximetry 100 100 Intake & Output 02/06/18 02/07/18 02/07/18 18:59 06:59 18:59 Intake Total 450 / 450 1567 / 1567 100 / 100 Output Total 825 / 825 Balance -375 / -375 1567 / 1567 100 / 100 Weight 46.1 kg Intake: IV 450 / 450 1050 / 1050 100 / 100 Diprivan 1000 mg/100 ml Inj 1, 100 / 100 200 / 200 100 / 100 000 mg In 100 ml @ 5 MCG/KG/MIN 1.361 mls/hr IV.CONT TITRATE PRN Rx#:[id number] Maxipime Inj 2,000 MG In NS Inj 100 / 100 200 / 200 100 ML @ 200 mls/hr IV.SIG Q8H [facility] Rx#:[id number] Levaquin 750 mg Premix Inj 150 150 / 150 ML @ 100 mls/hr IV.SIG Q48H [facility] Rx#:[id number] fentaNYL 10 mcg/mL Premix Drip 250 / 250 500 / 500 2,500 mcg In 250 ml @ 50 MCG/HR 5 mls/hr IV.SIG TITRATE PRN Rx #:[id number] Tube Feeding 397 / 397 Tube Irrigant 120 / 120 Output: Urine 225 / 225 Urine Amount (Catheter) 600 / 600 Straight 600 / 600 Other: # Voids 3 # Incontinent Voids 3 Date of Last Bowel Movement 02/06/18 02/07/18 02/06/18 # Bowel Movements 0 Result Diagrams: 02/04/18 04:04 02/04/18 04:04 Objective Remarks: GENERAL: Frail female. critically ill. orally intubated on mech vent. HEENT: nc. at. perrl. Eyes without icterus. NECK: Without adenopathy or thyroid enlargement. trachea midline. CHEST: on mech vent, Scattered rhonchi, wheeze bilaterally CARDIAC: normal rate, regular rhythm. sinus. Hypotensive ABDOMEN: soft, nontender, nondistended. no guarding. EXTREMITIES: No clubbing, cyanosis, or edema. NEURO: sedated, orally intubated, arouses on lightening sedation. moves all extremities Assessment and Plan - Assessment and Plan Plan: Assessment: 67yF with acute hypoxic and hypercarbic respiratory failure most likely secondary to acute COPD exacerbation. Plan by systems: Neurologic: Acute metabolic encephalopathy CO2 narcosis/Hypercarbic encephalopathy - Propofol for sedation, daily sedation vacation. -Altered mental status secondary to CO2 narcosis Respiratory: acute, severe COPD exacerbation acute hypercarbic and hypoxic respiratory failure - Extubated 02/04 initially tolerated well overnight developed hypercapnic respiratory failure - Required reintubation for worsening resp satus despite BIPAP on 02/05 - Scheduled and prn nebs. Daily CPAP trials to decide extubation. - IV and inhaled corticosteroid - hob elevated - wean fio2 for goal spo2 > 90% Cardiovascular: hypotension-resolved Currently hypertensive - BP WNL with sedation. - Antibiotics as below Renal: - Strict I/Os - no indication for man at this time. FEN/GI: Acute protein calorie malnutrition- severe - continue tube feeds - ICU electrolyte protocol - AM cmp Heme/ID: -Continue cefepime, off Levaquin - f/u culture data Endocrine: Diabetes -- SSI Prophylaxis: GI Prophylaxis pepcid DVT Prophylaxis -- SCDs - lovenox Lines: piv's central line and art line Dispo: remain in ICU. critically ill. CCT 35 min excluding procedures.
[2018-02-07] MEDS: Enoxaparin Inj 40 MG/0.4 ML Syringe SQ SCH (21:03)
[2018-02-08] MEDS: Oral Hygiene Kit OROPHARYNG SCH ×4 (00:38→15:21)
[2018-02-08] MEDS: Insulin NovoLIN Regular Correctional Sugar Inj SQ SCH ×4 (00:39→17:51)
[2018-02-08] MEDS: MethylPREDNISolone Sod Succinate Inj 40 MG/ML Vial IV.PUSH SCH ×4 (00:45→21:23)
[2018-02-08] MEDS: hydrALAZINE HCl Inj 20 MG/ML Vial IV.PUSH PRN ×3 (01:01→18:10)
[2018-02-08] MEDS: Propofol 1000 mg/100 ml Inj 1,000 MG/100 ML BOTTLE IV.CONT PRN ×3 (02:48→17:13)
[2018-02-08 05:36] LABS: Baso % (Auto) 0.1 % (0.0-2.0); Hematocrit 29.3 % (35.0-46.0); Hemoglobin 9.3 gm/dL (11.6-15.3); Lymph # (Auto) 0.3 th/mm3 (1.0-4.8); Lymph % (Auto) 2.6 % (9.0-44.0); Mean Corpuscular HGB Conc 31.9 % (32.0-36.0); Mean Corpuscular Hemoglobin 28.4 pg (27.0-34.0); Mono # (Auto) 0.7 th/mm3 (0.0-0.9); Mono % (Auto) 5.3 % (0.0-8.0); Neut # (Auto) 11.5 th/mm3 (1.8-7.7); Platelet Count 140 th/mm3 (150-450); Red Blood Count 3.29 mil/mm3 (4.00-5.30); Red Cell Distribution Width 18.9 % (11.6-17.2); White Blood Count 12.5 th/mm3 (4.0-11.0)
[2018-02-08] MEDS: fentaNYL 10 mcg/mL Premix Drip 2,500 MCG/250 ML BAG IV.SIG PRN ×2 (05:49→17:13)
[2018-02-08 06:01] LABS: Albumin 2.2 g/dL (3.4-5.0); Anion Gap 7 meq/L (5-15); Aspartate Aminotransferase 16 U/L (15-37); Blood Urea Nitrogen 43 mg/dL (7-18); Calcium 8.6 mg/dL (8.5-10.1); Chloride 116 meq/L (98-107); Glomerular Filtration Rate 71 mL/min (>89); Glucose,Random 280 mg/dL (74-106); Potassium 4.8 meq/L (3.5-5.1); Sodium 149 meq/L (136-145)
[2018-02-08 06:04] LABS: Alanine Aminotransferase 25 U/L (10-53); Alkaline Phosphatase 74 U/L (45-117); Total Protein 5.5 g/dL (6.4-8.2)
[2018-02-08] MEDS: Chlorhexidine 0.12% Oral Kit 15 ML UDC OROPHARYNG SCH ×2 (08:08→19:35)
[2018-02-08] MEDS: Gabapentin 300 MG Capsule PO SCH ×2 (08:09→21:23)
[2018-02-08] MEDS: Insulin Detemir Inj 1,000 UNIT/10 ML Vial SQ SCH ×2 (08:09→21:23)
[2018-02-08] MEDS: Senna/Docusate Sodium 8.6/50 MG Tablet PO SCH ×2 (08:09→21:24)
[2018-02-08] MEDS: Pantoprazole Sodium 20 MG DR Tablet PO SCH (08:09)
[2018-02-08] MEDS: Famotidine 20 MG Tablet PO SCH ×2 (08:09→21:23)
[2018-02-08] MEDS: Digoxin 250 MCG Tablet PO SCH (08:10)
[2018-02-08] MEDS ORDERED: Acetaminophen 325 MG Tablet PO PRN (08:27)
[2018-02-08] MEDS ORDERED: Labetalol HCl Inj 100 MG/20 ML Vial IV.PUSH PRN (08:28)
[2018-02-08 08:30] LABS: Lymphocytes 8 % (9-44); Monocytes 6 % (0-8); Tallied Nucleated RBC 1 (0-0)
[2018-02-08 08:31] LABS: Ovalocytes 1+
--- NOTE | 2018-02-08 08:55 | P.PNCC ---
Subjective Subjective Remarks/Hospital Course: 67yF with history of COPD was originally admitted by the Hospitalist service for hypercapnea and COPD exacerbation. Per their admission note: The patient is a 67-year-old female with a known history of COPD, DM, HTN, HLD, Afib admitted with increasing shortness of breath, associated hypoxemia, hospitalized for same multiple times. Patient is with worsening shortness of breath, using accessory repiratory muscle in tripod position. ABG is reassuring , however due to increased labored breathing she is placed on bipap.The patient follow with Dr Sterling weems. Patient received nebs, solumedrol. Evaluated by pulm. Patient is transfered to ICU. Noted with elevated BP. Patient still with labored breathing dispite bipap use. Patient reports she smokes a pack of cigarettes a day for over 30 years, continues to smoke to the time of hospitalization. She was counselled extensively regarding smoking cessations , she expressed understanding, and will try to quit, however says is hard to quit. despite aggressive non-invasive ventilatory strategies, patient decompensated and was emergently intubated by Dr. Bloom (see separate procedural documentation) . patient is intubated and cannot provide any additional history. ROS unobtainable. the remainder of the history taken from prior medical record documentation. 02/03: Remains intubated sedated. Currently synchronous with the ventilator. However requiring Levophed to maintain map above 65 currently on 6 mcg. This could be sedation related or due to sepsis. Cultures are pending at this time 02/04: Continues to be intubated sedated moves all extremities. Requires Levophed to keep map above 65. Chest exam reveals improved bilateral wheezing. 02/05: Extubated yesterday initially tolerated well however overnight became more short of breath altered. Had ABG showed a pH of 7.19 PCO2 72. Placed on BiPAP with improvement in symptoms currently slightly lethargic appears more awake pH at 5 AM was 7.127 PCO2 has come down to 57. Continue BiPAP may require reintubation but appears stable on BiPAP at this time 02/06: Reintubated on 02/05 for worsening resp distress. 02/07: Sedated, orally intubated on mechanical ventilation. Subjective 02/08: Afebrile. T-max 99. Becomes extremely agitated on weaning. Failed CPAP trial [id number]/. Will start dexmedetomidine drip. Positive BM. Tolerating tube feeds at goal. Remains quite hyperglycemic. Adjusting insulin detemir today. Objective Vital Signs / I&O: Vital Signs 02/07/18 09:00 02/07/18 09:02 02/07/18 10:00 Temperature Pulse Rate 67 66 68 Respiratory Rate 18 18 18 Blood Pressure 189/86 H 176/80 H Pulse Oximetry 100 100 02/07/18 11:00 02/07/18 11:54 02/07/18 12:00 Temperature 98.2 F Pulse Rate 72 69 70 Respiratory Rate 18 18 18 Blood Pressure 181/79 H 183/81 H 180/81 H Pulse Oximetry 100 100 100 02/07/18 12:39 02/07/18 13:00 02/07/18 14:00 Temperature Pulse Rate 79 83 Respiratory Rate 18 18 18 Blood Pressure 114/59 L 105/59 L Pulse Oximetry 100 99 99 02/07/18 15:00 02/07/18 15:44 02/07/18 15:47 Temperature Pulse Rate 79 85 Respiratory Rate 18 18 18 Blood Pressure 119/60 Pulse Oximetry 100 100 02/07/18 16:00 02/07/18 17:00 02/07/18 18:00 Temperature 97.9 F Pulse Rate 78 79 77 Respiratory Rate 18 18 18 Blood Pressure 124/59 L 123/58 L 122/58 L Pulse Oximetry 99 99 100 02/07/18 19:00 02/07/18 19:12 02/07/18 19:14 Temperature Pulse Rate 76 75 Respiratory Rate 18 18 19 Blood Pressure 124/60 Pulse Oximetry 100 100 02/07/18 20:00 02/07/18 21:00 02/07/18 22:00 Temperature 99.0 F Pulse Rate 78 76 72 Respiratory Rate 18 18 18 Blood Pressure 125/60 133/63 153/72 H Pulse Oximetry 99 100 100 02/07/18 23:00 02/08/18 00:00 02/08/18 00:10 Temperature 98.4 F Pulse Rate 71 68 Respiratory Rate 18 18 18 Blood Pressure 149/68 H 161/73 H Pulse Oximetry 100 100 100 02/08/18 01:00 02/08/18 01:04 02/08/18 02:00 Temperature Pulse Rate 69 71 75 Respiratory Rate 18 18 18 Blood Pressure 157/70 H 133/62 122/57 L Pulse Oximetry 100 100 99 12/27/18 03:00 02/08/18 03:02 02/08/18 03:03 Temperature Pulse Rate 105 H 95 H 88 Respiratory Rate 24 18 18 Blood Pressure 189/89 H 175/80 H Pulse Oximetry 97 100 100 02/08/18 04:00 02/08/18 04:20 02/08/18 07:43 Temperature 99.0 F Pulse Rate 72 Respiratory Rate 18 18 18 Blood Pressure Pulse Oximetry 99 100 100 02/08/18 07:46 Temperature Pulse Rate 74 Respiratory Rate 18 Blood Pressure Pulse Oximetry Intake & Output 02/07/18 02/08/18 02/08/18 18:59 06:59 18:59 Intake Total 1081 / 1081 550 / 550 Output Total 1000 / 1000 150 / 150 Balance 81 / 81 400 / 400 Weight 46.3 kg Intake: IV 550 / 550 550 / 550 Diprivan 1000 mg/100 ml Inj 1, 200 / 200 100 / 100 000 mg In 100 ml @ 5 MCG/KG/MIN 1.361 mls/hr IV.CONT TITRATE PRN Rx#:[id number] Maxipime Inj 2,000 MG In NS Inj 100 / 100 200 / 200 100 ML @ 200 mls/hr IV.SIG Q8H DULCE Rx#:[id number] fentaNYL 10 mcg/mL Premix Drip 250 / 250 250 / 250 2,500 mcg In 250 ml @ 50 MCG/HR 5 mls/hr IV.SIG TITRATE PRN Rx #:[id number] Tube Feeding 531 / 531 Output: Urine 1000 / 1000 150 / 150 Other: # Voids 3 # Incontinent Voids 2 3 Date of Last Bowel Movement 02/06/18 02/08/18 # Bowel Movements 1 # Incontinent Bowel Movements 1 Result Diagrams: 02/08/18 04:00 02/08/18 04:00 Other Results: Microbiology 02/02/18 05:25 Blood - Peripheral Aerobic Blood Culture - Final No growth in 5 days 02/02/18 05:25 Blood - Peripheral Anaerobic Blood Culture - Final No growth in 5 days 02/02/18 05:20 Blood - Peripheral Aerobic Blood Culture - Final No growth in 5 days 02/02/18 05:20 Blood - Peripheral Anaerobic Blood Culture - Final No growth in 5 days 02/03/18 01:04 Sputum - Endotracheal Gram Stain - Final 02/03/18 01:04 Sputum - Endotracheal Sputum Culture - Final Rare growth normal respiratory palma 02/02/18 06:30 Nasal Wash Influenza Types A,B Antigen - Final Negative for FLU A and B antigen Infection due to influenza A or B cannot be ruled out since the antigen present in the sample may be below the detection limit of the test. Imaging: Chest X-Ray 02/02/18 00:00 CONCLUSION: 1. Minimal blunting of the costophrenic recesses consistent with possible tiny pleural effusions or pleural thickening. 2. No focal infiltrate or pulmonary vascular congestion. 3. Endotracheal tube in good position 2 cm above the vinicio. Chest X-Ray 02/02/18 04:33 CONCLUSION: The lungs are clear. Chest X-Ray 02/03/18 00:00 CONCLUSION: Lungs are clear. ET tube in good position. Chest X-Ray 02/05/18 15:39 CONCLUSION: 1. The ET tube appears to be in good position. No evidence of pneumothorax. 2. The lungs are hyper aerated and grossly clear. Objective Remarks: GENERAL: This is a 67-year-old AA female currently orotracheally intubated SKIN: Warm and dry. No rash HEAD: Atraumatic. Normocephalic. EYES: Pupils equal and round. No scleral icterus. No injection or drainage. ENT: No nasal bleeding or discharge. Mucous membranes pink and moist. NECK: Trachea midline. No JVD. Left IJ CVL is clean dry and intact CARDIOVASCULAR: Regular rate and rhythm. S1, S2. No S4. Without murmur RESPIRATORY: Essentially. Clear to auscultation. Breath sounds equal bilaterally. End expiratory wheezing. GASTROINTESTINAL: Abdomen soft, non-tender, nondistended. Hypoactive bowel sounds appreciated. MUSCULOSKELETAL: Extremities with trace bilateral lower extremity edema. No obvious deformities. NEUROLOGICAL: Arousable on the ventilator but not following commands. Shakes head sinusitis. Moves all 4 extremities spontaneously. Positive cough and gag. Assessment and Plan - Assessment and Plan Plan: Neurologic/Psych Acute metabolic encephalopathy CO2 narcosis/Hypercarbic encephalopathy Peripheral neuropathy Currently on propofol at 50 mcg/kg/min/fentanyl drip at 50 mcg an hour for sedation/analgesia while intubated Goal of RA SS -2 Daily sedation vacation -Altered mental status secondary to CO2 narcosis Currently on gabapentin 300 mg twice daily/home medication -Resume vitamin B12 when indicated Check MRI brain/EEG today Respiratory: acute, severe COPD exacerbation acute hypercarbic and hypoxic respiratory failure - Extubated 02/04 initially tolerated well overnight developed hypercapnic respiratory failure - Required reintubation for worsening resp satus despite BIPAP on 02/05 - Scheduled albuterol/ipratropium aerosols every 4 hours and prn albuterol nebs. - Daily CPAP trials to decide extubation. - IV methylprednisolone succinate 40 mg IV every 8 hours and inhaled budesonide 0.5/2 1 inhalation twice daily Patient is on furosemide/formoterol 160/4.52 puffs twice daily at home along with albuterol HFA and ipratropium inhaler - hob elevated at 30 degrees - wean fio2 for goal spo2 > 90% -Followed by pulmonology Follow-up chest x-ray in a.m. 02/09 Cardiovascular: Essential hypertension History of atrial fibrillation currently normal sinus rhythm -Increase home medication lisinopril from 20 mg daily to twice daily. -Restart diltiazem 30 mg 4 times daily. On 120 mg daily at home. -As needed labetalol, hydralazine Nitropaste and clonidine -2D echocardiogram 03/02 revealed EF of 60%. Mild MR/TR. -Check digoxin level today. On 250 mcg daily. -81 mg daily. Aspirin will be resumed Renal/: - Strict I/Os - no indication for man at this time. FEN/GI: Acute protein calorie malnutrition- severe Hypernatremia - continue tube feeds with Glucerna 1.5 at 45 ccnutrition's recommendations - ICU electrolyte protocol initiated. - AM cmp -Freewater 100 cc every 8 hours Heme/ID: Leukocytosis Normocytic anemia Thrombocytopenia -Continue cefepime and levofloxacin - f/u culture data blood cultures 02/02 and sputum culture 02/03 no growth to date. Influenza a and B- Endocrine: Diabetes Patient is on scheduled insulin detemir 22 units twice daily. At home on 8 units twice daily. -- SSI with novulin R medium protocol every 6 hours. Check TSH in a.m. Prophylaxis: GI Prophylaxis Famotidine DVT Prophylaxis -- SCDs -Enoxaparin Lines: piv's Left IJ CVL placed 02/02 Level 2 follow-up. Code Status: Full code Discussed Condition With: Nicole WHALE FISHERMAN. Patient. Care plan discussed and all questions answered.
[2018-02-08] MEDS ORDERED: Lisinopril 20 MG Tablet PO SCH (09:00)
[2018-02-08] MEDS ORDERED: Insulin Detemir Inj 1,000 UNIT/10 ML Vial SQ SCH (09:00)
[2018-02-08] MEDS: Dexmedetomidine Inj 200 MCG in Sodium Chlor 0.9% Inj 48 ML IV.CONT PRN ×2 (11:01→20:02)
[2018-02-08] MEDS: Artificial Tears Opth Drops 15 ML Bottle EACH EYE SCH ×2 (11:08→17:15)
[2018-02-08] MEDS: dilTIAZem 30 MG Tablet PO SCH ×4 (11:08→21:23)
[2018-02-08] MEDS ORDERED: Gadobutrol PF 2 MMOL/2 ML Vial (for RAD) IV.SIG ONE (12:18)
--- NOTE | 2018-02-08 12:35 | P.PN ---
Subjective Interval history: Did not tolerate weaning on CPAP . was agitated. On Propofol and fentanyl now. FIO2 at 30% Physical Exam Vital signs: Vital Signs 02/07/18 12:39 02/07/18 13:00 02/07/18 14:00 Temperature Pulse Rate 79 83 Respiratory Rate 18 18 18 Blood Pressure 114/59 L 105/59 L Pulse Oximetry 100 99 99 02/07/18 15:00 02/07/18 15:44 02/07/18 15:47 Temperature Pulse Rate 79 85 Respiratory Rate 18 18 18 Blood Pressure 119/60 Pulse Oximetry 100 100 02/07/18 16:00 02/07/18 17:00 02/07/18 18:00 Temperature 97.9 F Pulse Rate 78 79 77 Respiratory Rate 18 18 18 Blood Pressure 124/59 L 123/58 L 122/58 L Pulse Oximetry 99 99 100 02/07/18 19:00 02/07/18 19:12 02/07/18 19:14 Temperature Pulse Rate 76 75 Respiratory Rate 18 18 19 Blood Pressure 124/60 Pulse Oximetry 100 100 02/07/18 20:00 02/07/18 21:00 02/07/18 22:00 Temperature 99.0 F Pulse Rate 78 76 72 Respiratory Rate 18 18 18 Blood Pressure 125/60 133/63 153/72 H Pulse Oximetry 99 100 100 02/07/18 23:00 02/08/18 00:00 02/08/18 00:10 Temperature 98.4 F Pulse Rate 71 68 Respiratory Rate 18 18 18 Blood Pressure 149/68 H 161/73 H Pulse Oximetry 100 100 100 02/08/18 01:00 02/08/18 01:04 02/08/18 02:00 Temperature Pulse Rate 69 71 75 Respiratory Rate 18 18 18 Blood Pressure 157/70 H 133/62 122/57 L Pulse Oximetry 100 100 99 02/08/18 03:00 02/08/18 03:02 02/08/18 03:03 Temperature Pulse Rate 105 H 95 H 88 Respiratory Rate 24 18 18 Blood Pressure 189/89 H 175/80 H Pulse Oximetry 97 100 100 02/08/18 04:00 02/08/18 04:20 02/08/18 07:43 Temperature 99.0 F Pulse Rate 72 Respiratory Rate 18 18 18 Blood Pressure Pulse Oximetry 99 100 100 02/08/18 07:46 02/08/18 08:00 02/08/18 09:00 Temperature Pulse Rate 74 80 Respiratory Rate 18 Blood Pressure Pulse Oximetry 100 02/08/18 11:25 Temperature Pulse Rate 72 Respiratory Rate 18 Blood Pressure Pulse Oximetry 100 Intake & Output 02/07/18 02/08/18 02/08/18 18:59 06:59 18:59 Intake Total 1081 / 1081 550 / 550 100 / 100 Output Total 1000 / 1000 150 / 150 Balance 81 / 81 400 / 400 100 / 100 Weight 46.3 kg Intake: IV 550 / 550 550 / 550 100 / 100 Diprivan 1000 mg/100 ml Inj 1, 200 / 200 100 / 100 100 / 100 000 mg In 100 ml @ 5 MCG/KG/MIN 1.361 mls/hr IV.CONT TITRATE PRN Rx#:[id number] Maxipime Inj 2,000 MG In NS Inj 100 / 100 200 / 200 100 ML @ 200 mls/hr IV.SIG Q8H DULCE Rx#:[id number] fentaNYL 10 mcg/mL Premix Drip 250 / 250 250 / 250 2,500 mcg In 250 ml @ 50 MCG/HR 5 mls/hr IV.SIG TITRATE PRN Rx #:[id number] Tube Feeding 531 / 531 Output: Urine 1000 / 1000 150 / 150 Other: # Voids 3 # Incontinent Voids 2 3 Date of Last Bowel Movement 02/06/18 02/08/18 02/08/18 # Bowel Movements 1 # Incontinent Bowel Movements 1 Narrative: GENERAL: Mid aged A/A intubated, sedated. HEENT: PERRL Eyes without icterus. mmm. NECK: Without adenopathy or thyroid enlargement. trachea midline. CHEST: Scattered wheeze bilaterally, decreased breath sounds, prvc, tv 450, rate 16, peep 5, fio2 35%. spo2 96%. CARDIAC: normal rate, regular rhythm. sinus. ABDOMEN: soft, nontender, nondistended. EXTREMITIES: No clubbing, cyanosis, or edema. NEURO:sedated, intubated. - Urinary Catheter Management Straight Cath placed during this visit: no Results - Labs CBC & Chem 7: 02/08/18 04:00 02/08/18 04:00 Laboratory Results - last 24 hr 02/07/18 02/07/18 02/08/18 14:09 18:07 00:39 WBC RBC Hgb Hct MCV MCH MCHC RDW Plt Count MPV Prelim Diff (Auto) Neut % (Auto) Lymph % (Auto) Piute % (Auto) Eos % (Auto) Baso % (Auto) Neut # (Auto) Lymph # (Auto) Piute # (Auto) Eos # (Auto) Baso # (Auto) WBC Differential Seg Neuts % (Manual) Band Neuts % (Manual) Lymphocytes % (Manual) Monocytes % (Manual) Abs Neuts (Manual) Nucleated RBCs/100 WBC Differential Comment Platelet Estimate Platelet Morphology Ovalocytes Smear Path Review Sodium Potassium Chloride Carbon Dioxide Anion Gap BUN Creatinine Estimated GFR POC Glucose 372 H 326 H 297 H Random Glucose Lactic Acid Calcium Total Bilirubin AST ALT Alkaline Phosphatase Total Creatine Kinase Total Protein Albumin Digoxin 02/08/18 02/08/18 02/08/18 04:00 04:00 05:52 WBC 12.5 H RBC 3.29 L Hgb 9.3 L Hct 29.3 L MCV 89.0 MCH 28.4 MCHC 31.9 L RDW 18.9 H Plt Count 140 L D MPV 10.0 Prelim Diff (Auto) Slide review pending Neut % (Auto) 92.0 H Lymph % (Auto) 2.6 L Piute % (Auto) 5.3 Eos % (Auto) 0.0 Baso % (Auto) 0.1 Neut # (Auto) 11.5 H Lymph # (Auto) 0.3 L Piute # (Auto) 0.7 Eos # (Auto) 0.0 Baso # (Auto) 0.0 WBC Differential Manual diff final Seg Neuts % (Manual) 84 H Band Neuts % (Manual) 2 Lymphocytes % (Manual) 8 L Monocytes % (Manual) 6 Abs Neuts (Manual) 10.8 H Nucleated RBCs/100 WBC 1 H Differential Comment . Platelet Estimate Low L Platelet Morphology Enlarged H Ovalocytes 1+ H Smear Path Review Sodium 149 H Potassium 4.8 Chloride 116 H Carbon Dioxide 26.0 Anion Gap 7 BUN 43 H Creatinine 0.95 Estimated GFR 71 L POC Glucose 325 H Random Glucose 280 H Lactic Acid Calcium 8.6 Total Bilirubin 0.2 AST 16 ALT 25 Alkaline Phosphatase 74 Total Creatine Kinase Total Protein 5.5 L Albumin 2.2 L Digoxin 02/08/18 02/08/18 02/08/18 08:08 08:51 09:13 WBC RBC Hgb Hct MCV MCH MCHC RDW Plt Count MPV Prelim Diff (Auto) Neut % (Auto) Lymph % (Auto) Piute % (Auto) Eos % (Auto) Baso % (Auto) Neut # (Auto) Lymph # (Auto) Piute # (Auto) Eos # (Auto) Baso # (Auto) WBC Differential Seg Neuts % (Manual) Band Neuts % (Manual) Lymphocytes % (Manual) Monocytes % (Manual) Abs Neuts (Manual) Nucleated RBCs/100 WBC Differential Comment Platelet Estimate Platelet Morphology Ovalocytes Smear Path Review Sodium Potassium Chloride Carbon Dioxide Anion Gap BUN Creatinine Estimated GFR POC Glucose 269 H Random Glucose Lactic Acid Calcium Total Bilirubin AST ALT Alkaline Phosphatase Total Creatine Kinase Total Protein Albumin Digoxin Greater than 5.0 H* 02/08/18 02/08/18 10:40 10:40 WBC RBC Hgb Hct MCV MCH MCHC RDW Plt Count MPV Prelim Diff (Auto) Neut % (Auto) Lymph % (Auto) Piute % (Auto) Eos % (Auto) Baso % (Auto) Neut # (Auto) Lymph # (Auto) Piute # (Auto) Eos # (Auto) Baso # (Auto) WBC Differential Seg Neuts % (Manual) Band Neuts % (Manual) Lymphocytes % (Manual) Monocytes % (Manual) Abs Neuts (Manual) Nucleated RBCs/100 WBC Differential Comment Platelet Estimate Platelet Morphology Ovalocytes Smear Path Review Sodium Potassium Chloride Carbon Dioxide Anion Gap BUN Creatinine Estimated GFR POC Glucose Random Glucose Lactic Acid 2.5 H Calcium Total Bilirubin AST ALT Alkaline Phosphatase Total Creatine Kinase 133 Total Protein Albumin Digoxin Microbiology 02/02/18 05:25 Blood - Peripheral Aerobic Blood Culture - Final No growth in 5 days 02/02/18 05:25 Blood - Peripheral Anaerobic Blood Culture - Final No growth in 5 days 02/02/18 05:20 Blood - Peripheral Aerobic Blood Culture - Final No growth in 5 days 02/02/18 05:20 Blood - Peripheral Anaerobic Blood Culture - Final No growth in 5 days Assessment and Plan - Assessment (1) Respiratory failure requiring intubation Code(s): J96.90 - Respiratory failure, unspecified, unspecified whether with hypoxia or hypercapnia Status: Acute (2) Atrial fibrillation Code(s): I48.91 - Unspecified atrial fibrillation Status: Acute (3) HTN (hypertension) Code(s): I10 - Essential (primary) hypertension Status: Acute (4) Hyperlipidemia Code(s): E78.5 - Hyperlipidemia, unspecified Status: Acute (5) Diabetes Code(s): E11.9 - Type 2 diabetes mellitus without complications Status: Acute (6) Emphysema lung Code(s): J43.9 - Emphysema, unspecified Status: Acute (7) COPD (chronic obstructive pulmonary disease) Code(s): J44.9 - Chronic obstructive pulmonary disease, unspecified Status: Acute - Plan 1.Place on A/C rate 12 , PEEP +5 and FIO2 35 % 2. Nebs q6h duoneb 3. Precedex for sedation. 4. Taper solumedrol 40 MG IV Q8H 5. Tube feeds at 50 CC 6. CXR CBC,BMP in am 7. CPAP trial in am (7) COPD (chronic obstructive pulmonary disease) Qualifiers: COPD type: COPD with acute exacerbation Qualified Code(s): J44.1 - Chronic obstructive pulmonary disease with (acute) exacerbation
--- NOTE | 2018-02-08 12:39 | MR ---
EXAM DATE: 02/08/2018 11:37 AM EST AGE/SEX: 67 years / Female INDICATIONS: Altered mental status. CLINICAL DATA: This is the patient's initial encounter. Patient reports that signs and symptoms have been present for 1 day and indicates a pain score of Nonresponsive. MEDICAL/SURGICAL HISTORY: Hypertension. Diabetes mellitus type II. Chronic obstructive pulmon solo disease. Atrial fibrillation. Tubal ligation. Left hip replacement. COMPARISON: No prior exams available for comparison. TECHNIQUE: Multiplanar, multisequence examination of the brain was performed without and with 4.6 ml Gadavist (gadobutrol) contrast as a single exam dose. FINDINGS: Cerebrum: The ventricles are normal for age. No evidence of midline shift, mass lesion, hemorrhage or acute infarction. No extraaxial fluid collections are seen. The pituitary gland and suprasellar cistern are normal in configuration. White Matter: No significant signal abnormalities are seen in the white matter. Posterior Fossa: The cerebellum and brainstem are intact. The 4th ventricle is midline. The cerebel lopontine angle is unremarkable. The cerebellar tonsils are normal in position. Diffusion Imaging: No focal areas of restricted diffusion are seen. No evidence of acute infarction . Extracranial: The visualized portions of the orbits unremarkable. Small fluid levels are noted withi n the bilateral maxillary, sphenoid and ethmoid sinuses. Post Contrast: No abnormal areas of parenchymal or dural enhancement. No evidence of blood-brain ba rrier breakdown. CONCLUSION: 1. No acute intracranial abnormality. 2. Acute pansinusitis. Electronically signed by: Fredo Perez MD Board Certified Radiologist 02/08/2018 12:38 PM EST
[2018-02-08] MEDS: Enoxaparin Inj 40 MG/0.4 ML Syringe SQ SCH (19:33)
--- NOTE | 2018-02-08 20:01 | ECG ---
Date Performed: 02/08/2018 Time Performed: 10:27:08 PTAGE: 67 years EKG: Sinus rhythm Compared to previous tracing, the patient is no longer tachycardic NORMAL ECG PREVIOUS TRACING : 02/02/2018 08.43 DOCTOR: Leticia Barron Interpretating Date/Time 02/08/2018 20:00:47
[2018-02-09] MEDS: Oral Hygiene Kit OROPHARYNG SCH ×5 (00:31→23:28)
[2018-02-09] MEDS: Insulin NovoLIN Regular Correctional Sugar Inj SQ SCH ×6 (00:31→23:27)
[2018-02-09] MEDS: Artificial Tears Opth Drops 15 ML Bottle EACH EYE SCH ×3 (00:31→16:57)
[2018-02-09] MEDS: hydrALAZINE HCl Inj 20 MG/ML Vial IV.PUSH PRN ×2 (02:03→06:50)
[2018-02-09] MEDS: Propofol 1000 mg/100 ml Inj 1,000 MG/100 ML BOTTLE IV.CONT PRN (03:30)
--- NOTE | 2018-02-09 03:48 | XR ---
EXAM DATE: 02/09/2018 3:41 AM EST AGE/SEX: 67 years / Female INDICATIONS: COPD. CLINICAL DATA: This is the patient's subsequent encounter. Patient reports that signs and symptoms h ave been present for 2 weeks and indicates a pain score of Nonresponsive. MEDICAL/SURGICAL HISTORY: Hypertension. Diabetes. Chronic obstructive pulmonary disease. Emp hysema. A-Fib. None. COMPARISON: [facility] [place], CHEST 1V SINGLE AP, 02/05/2018. . FINDINGS: No infiltrate, effusion or pneumothorax demonstrated. Heart size stable, normal. Endotracheal tube tip is approximately 4 cm above the vinicio. Nasogastric tube courses into the stoma ch. There is a left internal jugular central venous catheter again seen with tip in the superior vena cava. CONCLUSION: No significant change. Lungs remain clear. Electronically signed by: Wolf Gallegos MD Board Certified Radiologist 02/09/2018 3:47 AM EST
[2018-02-09 04:42] LABS: Baso % (Auto) 0.2 % (0.0-2.0); Hemoglobin 9.8 gm/dL (11.6-15.3); Lymph # (Auto) 0.4 th/mm3 (1.0-4.8); Lymph % (Auto) 3.2 % (9.0-44.0); Mean Corpuscular HGB Conc 32.7 % (32.0-36.0); Mean Corpuscular Hemoglobin 28.7 pg (27.0-34.0); Mean Corpuscular Volume 87.7 fL (80.0-100.0); Mean Platelet Volume 9.6 fL (7.0-11.0); Mono # (Auto) 0.6 th/mm3 (0.0-0.9); Mono % (Auto) 4.6 % (0.0-8.0); Neut # (Auto) 12.6 th/mm3 (1.8-7.7); Platelet Count 144 th/mm3 (150-450); Red Blood Count 3.42 mil/mm3 (4.00-5.30); Red Cell Distribution Width 19.5 % (11.6-17.2); White Blood Count 13.7 th/mm3 (4.0-11.0)
[2018-02-09 04:44] LABS: Alanine Aminotransferase 25 U/L (10-53); Albumin 2.3 g/dL (3.4-5.0); Anion Gap 7 meq/L (5-15); Aspartate Aminotransferase 10 U/L (15-37); Blood Urea Nitrogen 42 mg/dL (7-18); Calcium 8.7 mg/dL (8.5-10.1); Carbon Dioxide 26.6 meq/L (21.0-32.0); Chloride 117 meq/L (98-107); Glomerular Filtration Rate 77 mL/min (>89); Glucose,Random 284 mg/dL (74-106); Magnesium 3.2 mg/dL (1.5-2.5); Phosphorus 2.5 mg/dL (2.5-4.9); Potassium 4.8 meq/L (3.5-5.1); Sodium 151 meq/L (136-145)
[2018-02-09 04:57] LABS: Alkaline Phosphatase 79 U/L (45-117); Digoxin 1.3 ng/mL (0.8-2.0); Haptoglobin 374 mg/dL (30-200); Lactate Dehydrogenase 322 U/L (84-246); Thyroid Stimulating Hormone 0.549 uIU/mL (0.358-3.740); Total Protein 5.9 g/dL (6.4-8.2)
[2018-02-09] MEDS: MethylPREDNISolone Sod Succinate Inj 40 MG/ML Vial IV.PUSH SCH ×2 (05:35→21:23)
[2018-02-09] MEDS: Dexmedetomidine Inj 200 MCG in Sodium Chlor 0.9% Inj 48 ML IV.CONT PRN (05:35)
[2018-02-09] MEDS: Chlorhexidine 0.12% Oral Kit 15 ML UDC OROPHARYNG SCH ×3 (07:53→20:37)
[2018-02-09] MEDS: Famotidine 20 MG Tablet PO SCH ×2 (08:13→20:38)
[2018-02-09] MEDS: dilTIAZem 30 MG Tablet PO SCH ×4 (08:13→20:37)
[2018-02-09] MEDS: Senna/Docusate Sodium 8.6/50 MG Tablet PO SCH ×2 (08:13→20:38)
[2018-02-09] MEDS: Gabapentin 300 MG Capsule PO SCH ×2 (08:13→20:38)
[2018-02-09] MEDS: Insulin Detemir Inj 1,000 UNIT/10 ML Vial SQ SCH ×2 (09:27→21:23)
--- NOTE | 2018-02-09 09:28 | P.PNCC ---
Subjective Subjective Remarks/Hospital Course: 67yF with history of COPD was originally admitted by the Hospitalist service for hypercapnea and COPD exacerbation. Per their admission note: The patient is a 67-year-old female with a known history of COPD, DM, HTN, HLD, Afib admitted with increasing shortness of breath, associated hypoxemia, hospitalized for same multiple times. Patient is with worsening shortness of breath, using accessory repiratory muscle in tripod position. ABG is reassuring , however due to increased labored breathing she is placed on bipap.The patient follow with Dr Sterling weems. Patient received nebs, solumedrol. Evaluated by pulm. Patient is transfered to ICU. Noted with elevated BP. Patient still with labored breathing dispite bipap use. Patient reports she smokes a pack of cigarettes a day for over 30 years, continues to smoke to the time of hospitalization. She was counselled extensively regarding smoking cessations , she expressed understanding, and will try to quit, however says is hard to quit. despite aggressive non-invasive ventilatory strategies, patient decompensated and was emergently intubated by Dr. Bloom (see separate procedural documentation) . patient is intubated and cannot provide any additional history. ROS unobtainable. the remainder of the history taken from prior medical record documentation. 02/03: Remains intubated sedated. Currently synchronous with the ventilator. However requiring Levophed to maintain map above 65 currently on 6 mcg. This could be sedation related or due to sepsis. Cultures are pending at this time 02/04: Continues to be intubated sedated moves all extremities. Requires Levophed to keep map above 65. Chest exam reveals improved bilateral wheezing. 02/05: Extubated yesterday initially tolerated well however overnight became more short of breath altered. Had ABG showed a pH of 7.19 PCO2 72. Placed on BiPAP with improvement in symptoms currently slightly lethargic appears more awake pH at 5 AM was 7.127 PCO2 has come down to 57. Continue BiPAP may require reintubation but appears stable on BiPAP at this time 02/06: Reintubated on 02/05 for worsening resp distress. 02/07: Sedated, orally intubated on mechanical ventilation. 02/08: Afebrile. T-max 99. Becomes extremely agitated on weaning. Failed CPAP trial [id number]/. Will start dexmedetomidine drip. Positive BM. Tolerating tube feeds at goal. Remains quite hyperglycemic. Adjusting insulin detemir today. Subjective 02/09: Afebrile. Extubated today. Dexamethasone has been discontinued. BiPAP at bedside if needed. Arousable and follows commands. Answers 1 voice question. Still retracting. Objective Vital Signs / I&O: Vital Signs 02/08/18 10:00 02/08/18 11:00 02/08/18 11:25 Temperature Pulse Rate 74 74 72 Respiratory Rate 18 18 18 Blood Pressure 158/71 H 165/77 H Pulse Oximetry 100 100 100 02/08/18 12:00 02/08/18 12:24 02/08/18 12:41 Temperature 98.7 F Pulse Rate 68 74 Respiratory Rate 18 18 Blood Pressure 153/67 H Pulse Oximetry 99 100 100 02/08/18 12:42 02/08/18 12:43 02/08/18 13:00 Temperature Pulse Rate 75 68 Respiratory Rate 21 18 Blood Pressure 141/65 H 153/72 H Pulse Oximetry 100 100 100 02/08/18 14:00 02/08/18 14:34 02/08/18 15:00 Temperature Pulse Rate 65 65 71 Respiratory Rate 18 18 18 Blood Pressure 167/79 H 188/86 H Pulse Oximetry 100 100 100 02/08/18 15:50 02/08/18 16:00 02/08/18 16:01 Temperature 98.6 F Pulse Rate 79 81 83 Respiratory Rate 18 24 18 Blood Pressure 154/70 H 154/70 H 154/70 H Pulse Oximetry 100 100 100 02/08/18 17:00 02/08/18 18:00 02/08/18 18:03 Temperature Pulse Rate 79 69 69 Respiratory Rate 20 18 18 Blood Pressure 177/79 H 186/85 H 181/72 H Pulse Oximetry 98 100 100 02/08/18 19:00 02/08/18 19:50 02/08/18 20:00 Temperature 97.7 F Pulse Rate 67 68 66 Respiratory Rate 18 18 18 Blood Pressure 151/70 H 157/74 H Pulse Oximetry 100 100 100 02/08/18 21:00 02/08/18 22:00 02/08/18 23:00 Temperature Pulse Rate 69 64 60 Respiratory Rate 18 18 18 Blood Pressure 174/78 H 156/71 H 170/79 H Pulse Oximetry 100 100 100 02/08/18 23:49 02/08/18 23:50 02/09/18 00:00 Temperature Pulse Rate 61 60 Respiratory Rate 18 18 18 Blood Pressure 180/81 H Pulse Oximetry 100 100 02/09/18 00:01 02/09/18 01:00 02/09/18 02:00 Temperature Pulse Rate 61 68 67 Respiratory Rate 18 18 18 Blood Pressure 175/80 H 181/82 H 200/86 H Pulse Oximetry 100 100 100 02/09/18 02:15 02/09/18 02:30 02/09/18 03:00 Temperature Pulse Rate 71 70 71 Respiratory Rate 18 18 18 Blood Pressure 164/67 H 161/75 H 153/72 H Pulse Oximetry 100 100 100 02/09/18 03:37 02/09/18 03:39 02/09/18 04:00 Temperature Pulse Rate 83 79 Respiratory Rate 18 18 23 Blood Pressure Pulse Oximetry 100 100 02/09/18 04:12 02/09/18 05:00 02/09/18 06:00 Temperature Pulse Rate 80 80 75 Respiratory Rate 18 18 18 Blood Pressure 171/78 H 177/83 H 196/91 H Pulse Oximetry 100 100 100 02/09/18 06:15 02/09/18 06:30 02/09/18 06:45 Temperature Pulse Rate 74 71 70 Respiratory Rate 18 18 18 Blood Pressure 182/84 H 184/91 H 206/91 H Pulse Oximetry 100 100 100 02/09/18 07:00 02/09/18 07:40 02/09/18 08:00 Temperature Pulse Rate 101 H Respiratory Rate 15 18 Blood Pressure Pulse Oximetry 100 100 02/09/18 09:00 Temperature Pulse Rate 90 Respiratory Rate Blood Pressure Pulse Oximetry Intake & Output 02/08/18 02/09/18 02/09/18 18:59 06:59 18:59 Intake Total 1079 / 1079 1313 / 1313 Output Total 650 / 650 350 / 350 Balance 429 / 429 963 / 963 Weight 46.5 kg Intake: IV 550 / 550 700 / 700 Precedex Inj 200 MCG In NS Inj 100 / 100 48 ML @ 0.2 MCG/KG/HR 2.31 mls/ hr IV.CONT TITRATE PRN Rx#: [id number] Diprivan 1000 mg/100 ml Inj 1, 200 / 200 100 / 100 000 mg In 100 ml @ 5 MCG/KG/MIN 1.361 mls/hr IV.CONT TITRATE PRN Rx#:[id number] Maxipime Inj 2,000 MG In NS Inj 100 / 100 100 / 100 100 ML @ 200 mls/hr IV.SIG Q12H [facility] Rx#:[id number] Levaquin 750 mg Premix Inj 150 150 / 150 ML @ 100 mls/hr IV.SIG Q48H [facility] Rx#:[id number] fentaNYL 10 mcg/mL Premix Drip 250 / 250 2,500 mcg In 250 ml @ 50 MCG/HR 5 mls/hr IV.SIG TITRATE PRN Rx #:[id number] Tube Feeding 529 / 529 513 / 513 Water Bolus Amount 100 / 100 Output: Urine 650 / 650 350 / 350 Other: # Incontinent Voids 3 Date of Last Bowel Movement 02/08/18 02/09/18 02/09/18 # Bowel Movements 0 # Incontinent Bowel Movements 1 Result Diagrams: 02/09/18 04:10 02/09/18 04:10 Other Results: Microbiology 02/02/18 05:25 Blood - Peripheral Aerobic Blood Culture - Final No growth in 5 days 02/02/18 05:25 Blood - Peripheral Anaerobic Blood Culture - Final No growth in 5 days 02/02/18 05:20 Blood - Peripheral Aerobic Blood Culture - Final No growth in 5 days 02/02/18 05:20 Blood - Peripheral Anaerobic Blood Culture - Final No growth in 5 days 02/03/18 01:04 Sputum - Endotracheal Gram Stain - Final 02/03/18 01:04 Sputum - Endotracheal Sputum Culture - Final Rare growth normal respiratory pamla 02/02/18 06:30 Nasal Wash Influenza Types A,B Antigen - Final Negative for FLU A and B antigen Infection due to influenza A or B cannot be ruled out since the antigen present in the sample may be below the detection limit of the test. Imaging: Chest X-Ray 02/02/18 00:00 CONCLUSION: 1. Minimal blunting of the costophrenic recesses consistent with possible tiny pleural effusions or pleural thickening. 2. No focal infiltrate or pulmonary vascular congestion. 3. Endotracheal tube in good position 2 cm above the vinicio. Chest X-Ray 02/02/18 04:33 CONCLUSION: The lungs are clear. Chest X-Ray 02/03/18 00:00 CONCLUSION: Lungs are clear. ET tube in good position. Chest X-Ray 02/05/18 15:39 CONCLUSION: 1. The ET tube appears to be in good position. No evidence of pneumothorax. 2. The lungs are hyper aerated and grossly clear. Head MRI 02/08/18 00:00 CONCLUSION: 1. No acute intracranial abnormality. 2. Acute pansinusitis. Chest X-Ray 02/09/18 06:00 CONCLUSION: No significant change. Lungs remain clear. Objective Remarks: GENERAL: This is a 67-year-old AA female currently on nasal cannula no acute distress SKIN: Warm and dry. No rash HEAD: Atraumatic. Normocephalic. EYES: Pupils equal and round. No scleral icterus. No injection or drainage. ENT: No nasal bleeding or discharge. Mucous membranes pink and moist. NECK: Trachea midline. No JVD. Left IJ CVL is clean dry and intact CARDIOVASCULAR: Tachycardic, RR. S1, S2. No S4. Without murmur RESPIRATORY: Essentially. Clear to auscultation. Breath sounds equal bilaterally. End expiratory wheezing. GASTROINTESTINAL: Abdomen soft, non-tender, nondistended. Hypoactive bowel sounds appreciated. MUSCULOSKELETAL: Extremities with trace bilateral lower extremity edema. No obvious deformities. NEUROLOGICAL: Arousable and follows simple commands. Not his per. Moves all 4 extremities spontaneously. Assessment and Plan - Assessment and Plan Plan: Neurologic/Psych Acute metabolic encephalopathy CO2 narcosis/Hypercarbic encephalopathy Peripheral neuropathy Off all sedation. Expect that he and if indicated Daily sedation vacation -Altered mental status secondary to CO2 narcosis Currently on gabapentin 300 mg twice daily/home medication -Resume vitamin B12 when indicated Check MRI brain/EEG today Respiratory: acute, severe COPD exacerbation acute hypercarbic and hypoxic respiratory failure - Extubated 02/04 initially tolerated well overnight developed hypercapnic respiratory failure. - Required reintubation for worsening resp satus despite BIPAP on 02/05 extubated again 02/09 - Scheduled albuterol/ipratropium aerosols every 4 hours and prn albuterol nebs. - Daily CPAP trials to decide extubation. - IV methylprednisolone succinate 40 mg IV every 8 hours and inhaled budesonide 0.5/2 1 inhalation twice daily Patient is on furosemide/formoterol 160/4.52 puffs twice daily at home along with albuterol HFA and ipratropium inhaler - hob elevated at 30 degrees - wean fio2 for goal spo2 > 90% -Followed by pulmonology Follow-up chest x-ray in a.m. 02/10 Cardiovascular: Essential hypertension History of atrial fibrillation currently normal sinus rhythm -Increase home medication lisinopril from 20 mg daily to twice daily. -Restart diltiazem 30 mg 4 times daily. On 120 mg daily at home. -As needed labetalol, hydralazine Nitropaste and clonidine -2D echocardiogram 03/02 revealed EF of 60%. Mild MR/TR. -Check digoxin level currently 1.3. Decreased 225 mg daily digoxin start 02/10 -81 mg daily. Aspirin will be resumed Renal/: - Strict I/Os - no indication for man at this time. FEN/GI: Acute protein calorie malnutrition- severe Hypernatremia -Holding tube feeds with Glucerna 1.5 at 45 ccnutrition's recommendations. Speech evaluation for swallow. - ICU electrolyte protocol initiated. - AM cmp -Freewater 100 cc every 8 hours on hold Heme/ID: Leukocytosis Normocytic anemia Thrombocytopenia -Continue cefepime and levofloxacin - f/u culture data blood cultures 02/02 and sputum culture 02/03 no growth to date. Influenza a and B- Endocrine: Diabetes Patient is on scheduled insulin detemir 22 units twice daily. At home on 8 units twice daily. Holding insulin detemir status post extubation -- SSI with novulin R medium protocol every 6 hours. Check TSH i was 0.573 Prophylaxis: GI Prophylaxis Famotidine DVT Prophylaxis -- SCDs -Enoxaparin Lines: piv's Left IJ CVL placed 02/02 Level 3 follow-up.
[2018-02-09] MEDS: Clevidipine Inj 25 MG/50 ML VIAL IV.CONT PRN ×3 (10:04→21:24)
[2018-02-09] MEDS: Sodium Chloride 23.4% Inj 38.5 MEQ in Water for Inj, Sterile 1,000 ML IV.CONT SCH ×2 (10:10→21:50)
--- NOTE | 2018-02-09 11:33 | P.PN ---
Subjective Interval history: She is extubated and on O2 N/C 3 L. Seems weak. Physical Exam Vital signs: Vital Signs 02/08/18 12:00 02/08/18 12:24 02/08/18 12:41 Temperature 98.7 F Pulse Rate 68 74 Respiratory Rate 18 18 Blood Pressure 153/67 H Pulse Oximetry 99 100 100 02/08/18 12:42 02/08/18 12:43 02/08/18 13:00 Temperature Pulse Rate 75 68 Respiratory Rate 21 18 Blood Pressure 141/65 H 153/72 H Pulse Oximetry 100 100 100 02/08/18 14:00 02/08/18 14:34 02/08/18 15:00 Temperature Pulse Rate 65 65 71 Respiratory Rate 18 18 18 Blood Pressure 167/79 H 188/86 H Pulse Oximetry 100 100 100 02/08/18 15:50 02/08/18 16:00 02/08/18 16:01 Temperature 98.6 F Pulse Rate 79 81 83 Respiratory Rate 18 24 18 Blood Pressure 154/70 H 154/70 H 154/70 H Pulse Oximetry 100 100 100 02/08/18 17:00 02/08/18 18:00 02/08/18 18:03 Temperature Pulse Rate 79 69 69 Respiratory Rate 20 18 18 Blood Pressure 177/79 H 186/85 H 181/72 H Pulse Oximetry 98 100 100 02/08/18 19:00 02/08/18 19:50 02/08/18 20:00 Temperature 97.7 F Pulse Rate 67 68 66 Respiratory Rate 18 18 18 Blood Pressure 151/70 H 157/74 H Pulse Oximetry 100 100 100 02/08/18 21:00 02/08/18 22:00 02/08/18 23:00 Temperature Pulse Rate 69 64 60 Respiratory Rate 18 18 18 Blood Pressure 174/78 H 156/71 H 170/79 H Pulse Oximetry 100 100 100 02/08/18 23:49 02/08/18 23:50 02/09/18 00:00 Temperature Pulse Rate 61 60 Respiratory Rate 18 18 18 Blood Pressure 180/81 H Pulse Oximetry 100 100 02/09/18 00:01 02/09/18 01:00 02/09/18 02:00 Temperature Pulse Rate 61 68 67 Respiratory Rate 18 18 18 Blood Pressure 175/80 H 181/82 H 200/86 H Pulse Oximetry 100 100 100 02/09/18 02:15 02/09/18 02:30 02/09/18 03:00 Temperature Pulse Rate 71 70 71 Respiratory Rate 18 18 18 Blood Pressure 164/67 H 161/75 H 153/72 H Pulse Oximetry 100 100 100 02/09/18 03:37 02/09/18 03:39 02/09/18 04:00 Temperature Pulse Rate 83 79 Respiratory Rate 18 18 23 Blood Pressure Pulse Oximetry 100 100 02/09/18 04:12 02/09/18 05:00 02/09/18 06:00 Temperature Pulse Rate 80 80 75 Respiratory Rate 18 18 18 Blood Pressure 171/78 H 177/83 H 196/91 H Pulse Oximetry 100 100 100 02/09/18 06:15 02/09/18 06:30 02/09/18 06:45 Temperature Pulse Rate 74 71 70 Respiratory Rate 18 18 18 Blood Pressure 182/84 H 184/91 H 206/91 H Pulse Oximetry 100 100 100 02/09/18 07:00 02/09/18 07:40 02/09/18 08:00 Temperature 99.1 F Pulse Rate 101 H 101 H Respiratory Rate 15 18 19 Blood Pressure 203/90 H Pulse Oximetry 100 100 02/09/18 09:00 Temperature Pulse Rate 90 Respiratory Rate Blood Pressure Pulse Oximetry Intake & Output 02/08/18 02/09/18 02/09/18 18:59 06:59 18:59 Intake Total 1079 / 1079 1313 / 1313 125 / 125 Output Total 650 / 650 350 / 350 Balance 429 / 429 963 / 963 125 / 125 Weight 46.5 kg Intake: IV 550 / 550 700 / 700 125 / 125 Precedex Inj 200 MCG In NS Inj 100 / 100 48 ML @ 0.2 MCG/KG/HR 2.31 mls/ hr IV.CONT TITRATE PRN Rx#: [id number] Diprivan 1000 mg/100 ml Inj 1, 200 / 200 100 / 100 50 / 50 000 mg In 100 ml @ 5 MCG/KG/MIN 1.361 mls/hr IV.CONT TITRATE PRN Rx#:[id number] Maxipime Inj 2,000 MG In NS Inj 100 / 100 100 / 100 100 ML @ 200 mls/hr IV.SIG Q12H [facility] Rx#:[id number] Levaquin 750 mg Premix Inj 150 150 / 150 ML @ 100 mls/hr IV.SIG Q48H [facility] Rx#:[id number] fentaNYL 10 mcg/mL Premix Drip 250 / 250 75 / 75 2,500 mcg In 250 ml @ 50 MCG/HR 5 mls/hr IV.SIG TITRATE PRN Rx #:[id number] Tube Feeding 529 / 529 513 / 513 Water Bolus Amount 100 / 100 Output: Urine 650 / 650 350 / 350 Other: # Incontinent Voids 3 Date of Last Bowel Movement 02/08/18 02/09/18 02/09/18 # Bowel Movements 0 # Incontinent Bowel Movements 1 Narrative: GENERAL: Mid aged A/A awake and mildly dyspneic HEENT: PERRL Eyes without icterus. mmm. NECK: Without adenopathy or thyroid enlargement. trachea midline. CHEST: Scattered wheeze bilaterally, decreased breath sounds. CARDIAC: normal rate, regular rhythm. sinus. ABDOMEN: soft, nontender, nondistended. EXTREMITIES: No clubbing, cyanosis, or edema. NEURO: awake moves all. Reflexes 1 +. - Urinary Catheter Management Straight Cath placed during this visit: no Results - Labs CBC & Chem 7: 02/09/18 04:10 02/09/18 04:10 Laboratory Results - last 24 hr 02/08/18 02/08/18 02/09/18 13:23 17:46 00:02 WBC RBC Hgb Hct MCV MCH MCHC RDW Plt Count MPV Prelim Diff (Auto) Neut % (Auto) Lymph % (Auto) [place] % (Auto) Eos % (Auto) Baso % (Auto) Neut # (Auto) Lymph # (Auto) [place] # (Auto) Eos # (Auto) Baso # (Auto) WBC Differential Diff Scan Differential Comment Platelet Estimate Platelet Morphology Haptoglobin Sodium Potassium Chloride Carbon Dioxide Anion Gap BUN Creatinine Estimated GFR POC Glucose 250 H 265 H 294 H Random Glucose Calcium Phosphorus Magnesium Total Bilirubin AST ALT Alkaline Phosphatase Ammonia Lactate Dehydrogenase Total Protein Albumin TSH Digoxin 02/09/18 02/09/18 02/09/18 04:10 04:10 04:10 WBC 13.7 H RBC 3.42 L Hgb 9.8 L Hct 30.0 L MCV 87.7 MCH 28.7 MCHC 32.7 RDW 19.5 H Plt Count 144 L MPV 9.6 Prelim Diff (Auto) Slide review pending Neut % (Auto) 92.0 H Lymph % (Auto) 3.2 L [place] % (Auto) 4.6 Eos % (Auto) 0.0 Baso % (Auto) 0.2 Neut # (Auto) 12.6 H Lymph # (Auto) 0.4 L [place] # (Auto) 0.6 Eos # (Auto) 0.0 Baso # (Auto) 0.0 WBC Differential . Diff Scan Auto diff confirmed Differential Comment . Platelet Estimate Low L Platelet Morphology Enlarged H Haptoglobin 374 H Sodium 151 H Potassium 4.8 Chloride 117 H Carbon Dioxide 26.6 Anion Gap 7 BUN 42 H Creatinine 0.89 Estimated GFR 77 L POC Glucose Random Glucose 284 H Calcium 8.7 Phosphorus 2.5 Magnesium 3.2 H Total Bilirubin 0.2 AST 10 L ALT 25 Alkaline Phosphatase 79 Ammonia Less than 10 L Lactate Dehydrogenase 322 H Total Protein 5.9 L Albumin 2.3 L TSH 0.549 Digoxin 1.3 02/09/18 02/09/18 05:28 08:15 WBC RBC Hgb Hct MCV MCH MCHC RDW Plt Count MPV Prelim Diff (Auto) Neut % (Auto) Lymph % (Auto) [place] % (Auto) Eos % (Auto) Baso % (Auto) Neut # (Auto) Lymph # (Auto) [place] # (Auto) Eos # (Auto) Baso # (Auto) WBC Differential Diff Scan Differential Comment Platelet Estimate Platelet Morphology Haptoglobin Sodium Potassium Chloride Carbon Dioxide Anion Gap BUN Creatinine Estimated GFR POC Glucose 323 H 245 H Random Glucose Calcium Phosphorus Magnesium Total Bilirubin AST ALT Alkaline Phosphatase Ammonia Lactate Dehydrogenase Total Protein Albumin TSH Digoxin - Imaging Impressions Head MRI 02/08/18 00:00 CONCLUSION: 1. No acute intracranial abnormality. 2. Acute pansinusitis. Chest X-Ray 02/09/18 06:00 CONCLUSION: No significant change. Lungs remain clear. Assessment and Plan - Assessment (1) Respiratory failure requiring intubation Code(s): J96.90 - Respiratory failure, unspecified, unspecified whether with hypoxia or hypercapnia Status: Acute (2) Atrial fibrillation Code(s): I48.91 - Unspecified atrial fibrillation Status: Acute (3) HTN (hypertension) Code(s): I10 - Essential (primary) hypertension Status: Acute (4) Hyperlipidemia Code(s): E78.5 - Hyperlipidemia, unspecified Status: Acute (5) Diabetes Code(s): E11.9 - Type 2 diabetes mellitus without complications Status: Acute (6) Emphysema lung Code(s): J43.9 - Emphysema, unspecified Status: Acute (7) COPD (chronic obstructive pulmonary disease) Code(s): J44.9 - Chronic obstructive pulmonary disease, unspecified Status: Acute - Plan 1.Place on O2 3 L 2. Nebs q6h duoneb 3. ABG on O2 4. Taper Solumedrol to 40 MG IV Q12H 5. Tube feeds at 50 CC 6. CBC,BMP in am 7. Up in chair as tolerated. (7) COPD (chronic obstructive pulmonary disease) Qualifiers: COPD type: COPD with acute exacerbation Qualified Code(s): J44.1 - Chronic obstructive pulmonary disease with (acute) exacerbation
--- NOTE | 2018-02-09 12:33 | XR ---
EXAM DATE: 02/09/2018 12:11 PM EST AGE/SEX: 67 years / Female INDICATIONS: Dobhoff placement. CLINICAL DATA: This is the patient's initial encounter. Patient reports that signs and symptoms have been present for 1 day and indicates a pain score of 0/10. MEDICAL/SURGICAL HISTORY: . Hypertension. Diabetes mellitus type II. Chronic obstructive pulmon solo disease. Atrial fibrillation. Tubal ligation. Left hip replacement. . COMPARISON: No prior exams available for comparison. FINDINGS: The Dobbhoff tube appears to be malpositioned and may be located within the right lower lobe bronchio le. This should be removed and re-placed into the stomach. CONCLUSION: Malposition of the Dobbhoff tube tip which appears to be located within the right lower lobe bronchio le. This should be removed and re-placed into the stomach. Electronically signed by: Fredo Perez MD Board Certified Radiologist 02/09/2018 12:31 PM EST
--- NOTE | 2018-02-09 14:45 | MG ---
cc: Asa Andrade MD, PhD TEST NUMBER: [id number] TECHNIQUE: This is a 17-channel EEG. DESCRIPTION: The background rhythm reveals generalized slowing in the delta frequency of 3-4 Hz. Amplitude is 10-20 microvolts. There are no lateralizing features. There are no epileptiform discharges. Photic stimulation does not elicit a driving response. INTERPRETATION: Abnormal study consistent with a severe encephalopathy. Asa Andrade MD, PhD RADHA/te , 01:57 PM , 02:01 PM
--- NOTE | 2018-02-09 15:13 | P.DIET ---
Nutritional Evaluation Type of nutrition evaluation: follow-up Nutrition consult regarding: Tube Feeding Screening comments: 02/03 TF review Objective - Diagnosis COPD Exacerbation - Objective % IBW: 88 (IBW: 115lbs) Body Weight Used for Calculations: Actual (46.1kg) Energy Needs - Lower Range (kCal/kg): 30 Energy Needs - Upper Range (kCal/kg): 35 Lower Limit kCal/kg (kCals): 1,383 Upper Limit kCal/kg (kCals): 1,614 Lower Limit Protein Factor (Grams per Kg): 1.2 Upper Limit Protein Factor (Grams per Kg): 1.4 Lower Protein Needs (Protein): 55 Upper Protein Needs (Protein): 69 Dietitian Reviewed in Medical Record: Curent medications, Intake & Output, Labs , Medical history, Tube feeding Diet Order: NPO Objective Comments: PMH: COPD, DM, HTN, HLD, Afib Labs include: BUN 42, POC glucose 269 265 245 LBM 02/09 Assessment Assessment: Pt remains at nutritional risk r/t current clinical status and need for a TF for nutrition support. Pt extubated today and failed swallow eval this am . TF is on hold now d/t the extubation today. Spoke w/ ROSE Rivera about pts TF 'ing status, Dobbhoff tube placement was unsuccessful today and ST will reassess when pts sedation wears off. RN also added if pt fails swallow eval again, a Dobbhoff tube placement will be considered again. Continue to monitor NPO status. Labs reviewed, dietitian following. Brought forward: If pt on TF: Glucerna 1.5 with goal rate 45ml/hr will provide 1620kcals, 89gms protein and 820mls free water. Recommendations: 1. Continue to monitor NPO status 2. If pt on TF: Glucerna 1.5 with goal rate 45ml/hr 3. Dietitian following, additional recs to follow r/t medical course Dietitian to Monitor: Lab values, Glucose level, Intake & Output, Weight change , Swallow recommendations, Medical course Comments: NPO status
[2018-02-09] MEDS: Enoxaparin Inj 40 MG/0.4 ML Syringe SQ SCH (21:23)
[2018-02-10] MEDS: Clevidipine Inj 25 MG/50 ML VIAL IV.CONT PRN ×8 (01:31→23:27)
[2018-02-10] MEDS: Artificial Tears Opth Drops 15 ML Bottle EACH EYE SCH ×3 (01:31→18:07)
[2018-02-10 03:18] LABS: Baso % (Auto) 0.1 % (0.0-2.0); Eos # (Auto) 0.1 th/mm3 (0.0-0.4); Eos % (Auto) 0.4 % (0.0-4.0); Hematocrit 32.5 % (35.0-46.0); Hemoglobin 11.7 gm/dL (11.6-15.3); Mean Corpuscular Hemoglobin 31.1 pg (27.0-34.0); Mean Corpuscular Volume 86.4 fL (80.0-100.0); Mean Platelet Volume 8.9 fL (7.0-11.0); Mono # (Auto) 0.9 th/mm3 (0.0-0.9); Mono % (Auto) 3.9 % (0.0-8.0); Neut # (Auto) 21.8 th/mm3 (1.8-7.7); Neut % (Auto) 91.6 % (16.0-70.0); Platelet Count 182 th/mm3 (150-450); Red Blood Count 3.76 mil/mm3 (4.00-5.30); Red Cell Distribution Width 18.8 % (11.6-17.2); White Blood Count 23.8 th/mm3 (4.0-11.0)
[2018-02-10 03:54] LABS: Platelet Estimate Normal (Normal); Platelet Morphology Normal (Normal)
[2018-02-10 04:18] LABS: Albumin 2.5 g/dL (3.4-5.0); Alkaline Phosphatase 76 U/L (45-117); Anion Gap 7 meq/L (5-15); Carbon Dioxide 30.8 meq/L (21.0-32.0); Chloride 104 meq/L (98-107); Glomerular Filtration Rate Greater Than 89 mL/min (>89); Magnesium 2.4 mg/dL (1.5-2.5); Phosphorus 3.1 mg/dL (2.5-4.9); Potassium 4.2 meq/L (3.5-5.1); Sodium 142 meq/L (136-145)
[2018-02-10 05:35] LABS: Blood Urea Nitrogen 31 mg/dL (7-18); Calcium 9.1 mg/dL (8.5-10.1); Glucose,Random 185 mg/dL (74-106)
[2018-02-10 05:36] LABS: Alanine Aminotransferase 50 U/L (10-53); Aspartate Aminotransferase 42 U/L (15-37); Total Protein 6.3 g/dL (6.4-8.2)
[2018-02-10] MEDS: Oral Hygiene Kit OROPHARYNG SCH ×4 (05:36→23:14)
[2018-02-10] MEDS: Insulin NovoLIN Regular Correctional Sugar Inj SQ SCH ×4 (05:37→23:14)
--- NOTE | 2018-02-10 06:08 | XR ---
EXAM DATE: 02/10/2018 6:02 AM EST AGE/SEX: 67 years / Female INDICATIONS: Shortness of breath, possible pulmonary disease. CLINICAL DATA: This is the patient's subsequent encounter. Patient reports that signs and symptoms h ave been present for 2 weeks and indicates a pain score of Nonresponsive. MEDICAL/SURGICAL HISTORY: Hypertension. Diabetes. Chronic obstructive pulmonary disease. Emp hysema. A-fib. None. COMPARISON: C, CHEST 1V SINGLE AP, 02/09/2018. . FINDINGS: Trace right base atelectasis. No pleural effusion or pneumothorax. Endotracheal tube and nasogastric tube removed. There is a left internal jugular central venous neeraj ter remaining, tip in the superior vena cava. CONCLUSION: Trace right base atelectasis. Interim extubation and nasogastric tube removal Electronically signed by: Wolf Gallegos MD Board Certified Radiologist 02/10/2018 6:07 AM EST
--- NOTE | 2018-02-10 08:20 | P.PNCC ---
Subjective Subjective Remarks/Hospital Course: 67yF with history of COPD was originally admitted by the Hospitalist service for hypercapnea and COPD exacerbation. Per their admission note: The patient is a 67-year-old female with a known history of COPD, DM, HTN, HLD, Afib admitted with increasing shortness of breath, associated hypoxemia, hospitalized for same multiple times. Patient is with worsening shortness of breath, using accessory repiratory muscle in tripod position. ABG is reassuring , however due to increased labored breathing she is placed on bipap.The patient follow with Dr Sterling weems. Patient received nebs, solumedrol. Evaluated by pulm. Patient is transfered to ICU. Noted with elevated BP. Patient still with labored breathing dispite bipap use. Patient reports she smokes a pack of cigarettes a day for over 30 years, continues to smoke to the time of hospitalization. She was counselled extensively regarding smoking cessations , she expressed understanding, and will try to quit, however says is hard to quit. despite aggressive non-invasive ventilatory strategies, patient decompensated and was emergently intubated by Dr. Bloom (see separate procedural documentation) . patient is intubated and cannot provide any additional history. ROS unobtainable. the remainder of the history taken from prior medical record documentation. 02/03: Remains intubated sedated. Currently synchronous with the ventilator. However requiring Levophed to maintain map above 65 currently on 6 mcg. This could be sedation related or due to sepsis. Cultures are pending at this time 02/04: Continues to be intubated sedated moves all extremities. Requires Levophed to keep map above 65. Chest exam reveals improved bilateral wheezing. 02/05: Extubated yesterday initially tolerated well however overnight became more short of breath altered. Had ABG showed a pH of 7.19 PCO2 72. Placed on BiPAP with improvement in symptoms currently slightly lethargic appears more awake pH at 5 AM was 7.127 PCO2 has come down to 57. Continue BiPAP may require reintubation but appears stable on BiPAP at this time 02/06: Reintubated on 02/05 for worsening resp distress. 02/07: Sedated, orally intubated on mechanical ventilation. 02/08: Afebrile. T-max 99. Becomes extremely agitated on weaning. Failed CPAP trial [id number]/. Will start dexmedetomidine drip. Positive BM. Tolerating tube feeds at goal. Remains quite hyperglycemic. Adjusting insulin detemir today. 02/09: Afebrile. Extubated today. Dexamethasone has been discontinued. BiPAP at bedside if needed. Arousable and follows commands. Answers 1 voice question. Still retracting. Subjective 02/10: Afebrile. On intermittent BiPAP overnight. Arousable and follows commands. Intermittently retracts. Failed swallow evaluation. Failed to place NG or Keofeed yesterday. Remains on clevidipine drip. Objective Vital Signs / I&O: Vital Signs 02/09/18 09:00 02/09/18 11:00 02/09/18 12:00 Temperature 98.7 F Pulse Rate 90 117 H 100 H Respiratory Rate 18 19 Blood Pressure 166/76 H Pulse Oximetry 100 02/09/18 15:00 02/09/18 16:00 02/09/18 16:15 Temperature 98.9 F Pulse Rate 97 H 99 H 101 H Respiratory Rate 18 25 H 28 H Blood Pressure 169/76 H 152/67 H Pulse Oximetry 100 100 02/09/18 16:30 02/09/18 16:45 02/09/18 17:00 Temperature Pulse Rate 109 H 109 H 103 H Respiratory Rate 29 H 27 H 17 Blood Pressure 164/75 H 156/67 H 150/73 H Pulse Oximetry 100 100 100 02/09/18 17:15 02/09/18 17:30 02/09/18 17:45 Temperature Pulse Rate 110 H 100 H 99 H Respiratory Rate 31 H 16 15 Blood Pressure 155/76 H 160/68 H 176/81 H Pulse Oximetry 100 100 100 02/09/18 18:00 02/09/18 18:15 02/09/18 18:30 Temperature Pulse Rate 102 H 101 H 102 H Respiratory Rate 19 16 22 Blood Pressure 167/77 H 164/75 H 165/71 H Pulse Oximetry 100 100 100 02/09/18 18:45 02/09/18 19:00 02/09/18 19:15 Temperature Pulse Rate 106 H 104 H 107 H Respiratory Rate 18 18 17 Blood Pressure 169/80 H 167/79 H 168/81 H Pulse Oximetry 100 100 100 02/09/18 19:30 02/09/18 19:45 02/09/18 19:54 Temperature Pulse Rate 104 H 104 H 107 H Respiratory Rate 16 17 16 Blood Pressure 170/81 H 169/77 H Pulse Oximetry 100 100 100 02/09/18 20:00 02/09/18 20:02 02/09/18 20:13 Temperature 100.1 F H Pulse Rate 107 H 109 H 108 H Respiratory Rate 19 18 19 Blood Pressure 174/81 H 173/81 H Pulse Oximetry 100 100 02/09/18 20:30 02/09/18 20:45 02/09/18 21:00 Temperature Pulse Rate 111 H 109 H 113 H Respiratory Rate 18 19 19 Blood Pressure 169/76 H 165/77 H 167/69 H Pulse Oximetry 100 100 100 02/09/18 21:15 02/09/18 21:30 02/09/18 21:45 Temperature Pulse Rate 108 H 109 H 112 H Respiratory Rate 18 18 18 Blood Pressure 158/72 H 152/67 H 160/70 H Pulse Oximetry 100 100 100 02/09/18 22:00 02/09/18 22:15 02/09/18 22:30 Temperature Pulse Rate 123 H 113 H 114 H Respiratory Rate 22 40 H 34 H Blood Pressure 154/70 H 162/74 H 154/63 H Pulse Oximetry 100 100 100 02/09/18 22:45 02/09/18 23:00 02/09/18 23:15 Temperature Pulse Rate 113 H 111 H 110 H Respiratory Rate 43 H 39 H 40 H Blood Pressure 157/72 H 160/72 H 160/73 H Pulse Oximetry 100 100 100 02/09/18 23:30 02/09/18 23:45 02/09/18 23:57 Temperature Pulse Rate 113 H 120 H 101 H Respiratory Rate 42 H 42 H 18 Blood Pressure 164/77 H 167/78 H Pulse Oximetry 100 100 100 02/10/18 00:00 02/10/18 00:15 02/10/18 00:30 Temperature 98.6 F Pulse Rate 110 H 110 H 108 H Respiratory Rate 30 H 20 18 Blood Pressure 144/67 H 152/67 H 151/67 H Pulse Oximetry 100 100 100 02/10/18 00:45 02/10/18 01:00 02/10/18 01:15 Temperature Pulse Rate 109 H 109 H 109 H Respiratory Rate 19 16 17 Blood Pressure 147/68 H 146/70 H 144/69 H Pulse Oximetry 100 100 100 02/10/18 01:30 02/10/18 01:45 02/10/18 01:49 Temperature Pulse Rate 112 H 109 H 108 H Respiratory Rate 18 17 16 Blood Pressure 149/70 H 148/70 H Pulse Oximetry 100 100 02/10/18 02:00 02/10/18 02:15 02/10/18 02:30 Temperature Pulse Rate 109 H 109 H 118 H Respiratory Rate 17 17 19 Blood Pressure 154/69 H 149/69 H 157/71 H Pulse Oximetry 100 100 100 02/10/18 02:45 02/10/18 03:00 02/10/18 03:15 Temperature Pulse Rate 109 H 114 H 122 H Respiratory Rate 16 24 22 Blood Pressure 155/73 H 158/84 H 152/78 H Pulse Oximetry 100 100 100 02/10/18 03:30 02/10/18 03:45 02/10/18 03:59 Temperature Pulse Rate 116 H 128 H 110 H Respiratory Rate 21 22 18 Blood Pressure 150/72 H 147/72 H Pulse Oximetry 100 100 100 02/10/18 04:00 02/10/18 04:15 02/10/18 04:30 Temperature 99.8 F H Pulse Rate 109 H 117 H 120 H Respiratory Rate 18 21 30 H Blood Pressure 152/69 H 158/74 H 153/76 H Pulse Oximetry 100 100 100 02/10/18 04:45 02/10/18 05:00 02/10/18 05:15 Temperature Pulse Rate 124 H 120 H 122 H Respiratory Rate 27 H 42 H 35 H Blood Pressure 167/77 H 169/70 H 162/76 H Pulse Oximetry 100 100 100 02/10/18 05:30 02/10/18 05:39 02/10/18 05:45 Temperature Pulse Rate 117 H 121 H Respiratory Rate 27 H 23 Blood Pressure 151/69 H 155/74 H Pulse Oximetry 100 100 100 02/10/18 06:00 02/10/18 06:15 02/10/18 06:30 Temperature Pulse Rate 111 H 114 H 110 H Respiratory Rate 18 16 17 Blood Pressure 153/76 H 155/77 H 148/77 H Pulse Oximetry 100 100 100 02/10/18 06:45 02/10/18 07:00 02/10/18 07:15 Temperature Pulse Rate 121 H 114 H 109 H Respiratory Rate 17 16 17 Blood Pressure 155/84 H 138/79 150/74 H Pulse Oximetry 100 100 100 02/10/18 07:30 02/10/18 07:38 Temperature Pulse Rate 108 H 105 H Respiratory Rate 17 18 Blood Pressure 162/68 H Pulse Oximetry 100 100 Intake & Output 02/09/18 02/10/18 02/10/18 18:59 06:59 18:59 Intake Total 325 / 325 1159.625 / 1159.625 100 / 100 Output Total 750 / 750 1200 / 1200 Balance -425 / -425 -40.375 / -40.375 100 / 100 Weight 47.2 kg Intake: IV 275 / 275 1159.625 / 1159.625 100 / 100 Cleviprex Inj 25 mg In 50 ml @ 50 / 50 150 / 150 1 MG/HR 2 mls/hr IV.CONT TITRATE PRN Rx#:[id number] Diprivan 1000 mg/100 ml Inj 1, 50 / 50 000 mg In 100 ml @ 5 MCG/KG/MIN 1.361 mls/hr IV.CONT TITRATE PRN Rx#:[id number] Sodium Chloride 23.4% Inj 38.5 1009.625 / 1009.625 MEQ In Sterile Water for Inj 1, 000 ML @ 84 mls/hr IV.CONT . Q12H2M [facility] Rx#:[id number] Maxipime Inj 2,000 MG In NS Inj 100 / 100 100 / 100 100 ML @ 200 mls/hr IV.SIG Q12H [facility] Rx#:[id number] fentaNYL 10 mcg/mL Premix Drip 75 / 75 2,500 mcg In 250 ml @ 50 MCG/HR 5 mls/hr IV.SIG TITRATE PRN Rx #:[id number] Oral 50 / 50 Output: Urine 750 / 750 1200 / 1200 Other: Date of Last Bowel Movement 02/09/18 02/09/18 # Bowel Movements 0 # Incontinent Bowel Movements 0 0 Result Diagrams: 02/10/18 03:00 02/10/18 03:00 Other Results: Microbiology 02/02/18 05:25 Blood - Peripheral Aerobic Blood Culture - Final No growth in 5 days 02/02/18 05:25 Blood - Peripheral Anaerobic Blood Culture - Final No growth in 5 days 02/02/18 05:20 Blood - Peripheral Aerobic Blood Culture - Final No growth in 5 days 02/02/18 05:20 Blood - Peripheral Anaerobic Blood Culture - Final No growth in 5 days 02/03/18 01:04 Sputum - Endotracheal Gram Stain - Final 02/03/18 01:04 Sputum - Endotracheal Sputum Culture - Final Rare growth normal respiratory palma 02/02/18 06:30 Nasal Wash Influenza Types A,B Antigen - Final Negative for FLU A and B antigen Infection due to influenza A or B cannot be ruled out since the antigen present in the sample may be below the detection limit of the test. Imaging: Chest X-Ray 02/02/18 00:00 CONCLUSION: 1. Minimal blunting of the costophrenic recesses consistent with possible tiny pleural effusions or pleural thickening. 2. No focal infiltrate or pulmonary vascular congestion. 3. Endotracheal tube in good position 2 cm above the vinicio. Chest X-Ray 02/02/18 04:33 CONCLUSION: The lungs are clear. Chest X-Ray 02/03/18 00:00 CONCLUSION: Lungs are clear. ET tube in good position. Chest X-Ray 02/05/18 15:39 CONCLUSION: 1. The ET tube appears to be in good position. No evidence of pneumothorax. 2. The lungs are hyper aerated and grossly clear. Head MRI 02/08/18 00:00 CONCLUSION: 1. No acute intracranial abnormality. 2. Acute pansinusitis. Abdomen X-Ray 02/09/18 00:00 CONCLUSION: Malposition of the Dobbhoff tube tip which appears to be located within the right lower lobe bronchiole. This should be removed and re-placed into the stomach. Chest X-Ray 02/09/18 06:00 CONCLUSION: No significant change. Lungs remain clear. Chest X-Ray 02/10/18 06:00 CONCLUSION: Trace right base atelectasis. Interim extubation and nasogastric tube removal Objective Remarks: GENERAL: This is a 67-year-old AA female currently on nasal cannula no acute distress SKIN: Warm and dry. No rash HEAD: Atraumatic. Normocephalic. EYES: Pupils equal and round. No scleral icterus. No injection or drainage. ENT: No nasal bleeding or discharge. Mucous membranes pink and moist. NECK: Trachea midline. No JVD. Left IJ CVL is clean dry and intact CARDIOVASCULAR: Tachycardic, RR. S1, S2. No S4. Without murmur RESPIRATORY: Essentially. Clear to auscultation. Breath sounds equal bilaterally. End expiratory wheezing. Intermittent retracting GASTROINTESTINAL: Abdomen soft, non-tender, nondistended. Hypoactive bowel sounds appreciated. MUSCULOSKELETAL: Extremities with trace bilateral lower extremity edema. No obvious deformities. NEUROLOGICAL: Arousable and follows simple commands. Answer simple questions. Moves all 4 extremities spontaneously. Assessment and Plan - Assessment and Plan Plan: Neurologic/Psych Acute metabolic encephalopathy CO2 narcosis/Hypercarbic encephalopathy Peripheral neuropathy -Altered mental status secondary to CO2 narcosis Currently on gabapentin 300 mg twice daily/home medication -Resume vitamin B12 when indicated Negative MRI brain/EEG Respiratory: acute, severe COPD exacerbation acute hypercarbic and hypoxic respiratory failure - Extubated 02/04 initially tolerated well overnight developed hypercapnic respiratory failure. - Required reintubation for worsening resp satus despite BIPAP on 02/05 extubated again 02/09 - Scheduled albuterol/ipratropium aerosols every 4 hours and prn albuterol nebs. - Daily CPAP trials to decide extubation. - IV methylprednisolone succinate 40 mg IV every 8 hours and inhaled budesonide 0.5/2 1 inhalation twice daily Patient is on furosemide/formoterol 160/4.5 2 puffs twice daily at home along with albuterol HFA and ipratropium inhaler - hob elevated at 30 degrees - wean fio2 for goal spo2 > 90% -Followed by pulmonology Follow-up chest x-ray in a.m. 02/11 Cardiovascular: Essential hypertension History of atrial fibrillation currently normal sinus rhythm -Increase home medication lisinopril from 20 mg daily to twice daily. -Restart diltiazem 30 mg 4 times daily. On 120 mg daily at home. -As needed labetalol, hydralazine Nitropaste and clonidine -2D echocardiogram 03/02 revealed EF of 60%. Mild MR/TR. -Check digoxin level currently 1.3. Decreased 0.1 25 mg daily digoxin start -81 mg daily. Aspirin will be resumed Renal/: - Strict I/Os - no indication for man at this time. FEN/GI: Acute protein calorie malnutrition- severe Hypernatremia -Holding tube feeds with Glucerna 1.5 at 45 ccnutrition's recommendations. Speech evaluation for swallow. Resume today - ICU electrolyte protocol initiated. - AM cmp -Freewater 100 cc every 8 hours on hold Heme/ID: Leukocytosis Normocytic anemia -Continue cefepime and levofloxacin - f/u culture data blood cultures 02/02 and sputum culture 02/03 no growth to date. Influenza a and B- Endocrine: Diabetes Patient is on scheduled insulin detemir 8 units twice daily. At home on 8 units twice daily. Holding insulin detemir status post extubation and if n.p.o. -- SSI with novulin R medium protocol every 6 hours. Check TSH i was 0.573 Prophylaxis: GI Prophylaxis Famotidine DVT Prophylaxis -- SCDs -Enoxaparin Lines: piv's Left IJ CVL placed 02/02. Removed 02/10 Level 3 follow-up. Code Status: Full code
[2018-02-10] MEDS: MethylPREDNISolone Sod Succinate Inj 40 MG/ML Vial IV.PUSH SCH ×2 (09:04→21:03)
[2018-02-10] MEDS: Chlorhexidine 0.12% Oral Kit 15 ML UDC OROPHARYNG SCH ×2 (09:04→19:49)
[2018-02-10] MEDS: Sodium Chloride 23.4% Inj 38.5 MEQ in Water for Inj, Sterile 1,000 ML IV.CONT SCH (10:03)
[2018-02-10] MEDS: dilTIAZem 30 MG Tablet PO SCH ×4 (10:48→21:03)
[2018-02-10] MEDS: Insulin Detemir Inj 1,000 UNIT/10 ML Vial SQ SCH ×2 (10:48→21:03)
[2018-02-10 10:58] LABS: ABG Base Excess 6.5 mmol/L (-2-2); ABG PCO2 38 mmHg (38-42); ABG PO2 71 mmHG (61-120)
--- NOTE | 2018-02-10 11:13 | P.PN ---
Subjective Interval history: Alert and on BIPAP today. FIo2 at 35 % Anxious. No chest pain. ABG' were OK. Physical Exam Vital signs: Vital Signs 02/09/18 12:00 02/09/18 15:00 02/09/18 16:00 Temperature 98.7 F 98.9 F Pulse Rate 100 H 97 H 99 H Respiratory Rate 19 18 25 H Blood Pressure 166/76 H 169/76 H Pulse Oximetry 100 100 02/09/18 16:15 02/09/18 16:30 02/09/18 16:45 Temperature Pulse Rate 101 H 109 H 109 H Respiratory Rate 28 H 29 H 27 H Blood Pressure 152/67 H 164/75 H 156/67 H Pulse Oximetry 100 100 100 02/09/18 17:00 02/09/18 17:15 02/09/18 17:30 Temperature Pulse Rate 103 H 110 H 100 H Respiratory Rate 17 31 H 16 Blood Pressure 150/73 H 155/76 H 160/68 H Pulse Oximetry 100 100 100 02/09/18 17:45 02/09/18 18:00 02/09/18 18:15 Temperature Pulse Rate 99 H 102 H 101 H Respiratory Rate 15 19 16 Blood Pressure 176/81 H 167/77 H 164/75 H Pulse Oximetry 100 100 100 02/09/18 18:30 02/09/18 18:45 02/09/18 19:00 Temperature Pulse Rate 102 H 106 H 104 H Respiratory Rate 22 18 18 Blood Pressure 165/71 H 169/80 H 167/79 H Pulse Oximetry 100 100 100 02/09/18 19:15 02/09/18 19:30 02/09/18 19:45 Temperature Pulse Rate 107 H 104 H 104 H Respiratory Rate 17 16 17 Blood Pressure 168/81 H 170/81 H 169/77 H Pulse Oximetry 100 100 100 02/09/18 19:54 02/09/18 20:00 02/09/18 20:02 Temperature 100.1 F H Pulse Rate 107 H 107 H 109 H Respiratory Rate 16 19 18 Blood Pressure 174/81 H Pulse Oximetry 100 100 02/09/18 20:13 02/09/18 20:30 02/09/18 20:45 Temperature Pulse Rate 108 H 111 H 109 H Respiratory Rate 19 18 19 Blood Pressure 173/81 H 169/76 H 165/77 H Pulse Oximetry 100 100 100 02/09/18 21:00 02/09/18 21:15 02/09/18 21:30 Temperature Pulse Rate 113 H 108 H 109 H Respiratory Rate 19 18 18 Blood Pressure 167/69 H 158/72 H 152/67 H Pulse Oximetry 100 100 100 02/09/18 21:45 02/09/18 22:00 02/09/18 22:15 Temperature Pulse Rate 112 H 123 H 113 H Respiratory Rate 18 22 40 H Blood Pressure 160/70 H 154/70 H 162/74 H Pulse Oximetry 100 100 100 02/09/18 22:30 02/09/18 22:45 02/09/18 23:00 Temperature Pulse Rate 114 H 113 H 111 H Respiratory Rate 34 H 43 H 39 H Blood Pressure 154/63 H 157/72 H 160/72 H Pulse Oximetry 100 100 100 02/09/18 23:15 02/09/18 23:30 02/09/18 23:45 Temperature Pulse Rate 110 H 113 H 120 H Respiratory Rate 40 H 42 H 42 H Blood Pressure 160/73 H 164/77 H 167/78 H Pulse Oximetry 100 100 100 02/09/18 23:57 02/10/18 00:00 02/10/18 00:15 Temperature 98.6 F Pulse Rate 101 H 110 H 110 H Respiratory Rate 18 30 H 20 Blood Pressure 144/67 H 152/67 H Pulse Oximetry 100 100 100 02/10/18 00:30 02/10/18 00:45 02/10/18 01:00 Temperature Pulse Rate 108 H 109 H 109 H Respiratory Rate 18 19 16 Blood Pressure 151/67 H 147/68 H 146/70 H Pulse Oximetry 100 100 100 02/10/18 01:15 02/10/18 01:30 02/10/18 01:45 Temperature Pulse Rate 109 H 112 H 109 H Respiratory Rate 17 18 17 Blood Pressure 144/69 H 149/70 H 148/70 H Pulse Oximetry 100 100 100 02/10/18 01:49 02/10/18 02:00 02/10/18 02:15 Temperature Pulse Rate 108 H 109 H 109 H Respiratory Rate 16 17 17 Blood Pressure 154/69 H 149/69 H Pulse Oximetry 100 100 02/10/18 02:30 02/10/18 02:45 02/10/18 03:00 Temperature Pulse Rate 118 H 109 H 114 H Respiratory Rate 19 16 24 Blood Pressure 157/71 H 155/73 H 158/84 H Pulse Oximetry 100 100 100 02/10/18 03:15 02/10/18 03:30 02/10/18 03:45 Temperature Pulse Rate 122 H 116 H 128 H Respiratory Rate 22 21 22 Blood Pressure 152/78 H 150/72 H 147/72 H Pulse Oximetry 100 100 100 02/10/18 03:59 02/10/18 04:00 02/10/18 04:15 Temperature 99.8 F H Pulse Rate 110 H 109 H 117 H Respiratory Rate 18 18 21 Blood Pressure 152/69 H 158/74 H Pulse Oximetry 100 100 100 02/10/18 04:30 02/10/18 04:45 02/10/18 05:00 Temperature Pulse Rate 120 H 124 H 120 H Respiratory Rate 30 H 27 H 42 H Blood Pressure 153/76 H 167/77 H 169/70 H Pulse Oximetry 100 100 100 02/10/18 05:15 02/10/18 05:30 02/10/18 05:39 Temperature Pulse Rate 122 H 117 H Respiratory Rate 35 H 27 H Blood Pressure 162/76 H 151/69 H Pulse Oximetry 100 100 100 02/10/18 05:45 02/10/18 06:00 02/10/18 06:15 Temperature Pulse Rate 121 H 111 H 114 H Respiratory Rate 23 18 16 Blood Pressure 155/74 H 153/76 H 155/77 H Pulse Oximetry 100 100 100 02/10/18 06:30 02/10/18 06:45 02/10/18 07:00 Temperature Pulse Rate 110 H 121 H 114 H Respiratory Rate 17 17 16 Blood Pressure 148/77 H 155/84 H 138/79 Pulse Oximetry 100 100 100 02/10/18 07:15 02/10/18 07:30 02/10/18 07:38 Temperature Pulse Rate 109 H 108 H 105 H Respiratory Rate 17 17 18 Blood Pressure 150/74 H 162/68 H Pulse Oximetry 100 100 100 02/10/18 08:00 02/10/18 09:13 02/10/18 09:26 Temperature Pulse Rate 112 H Respiratory Rate 16 Blood Pressure Pulse Oximetry 100 100 Intake & Output 02/09/18 02/10/18 02/10/18 18:59 06:59 18:59 Intake Total 325 / 325 1159.625 / 8673.151 4633.625 / 1209.625 Output Total 750 / 750 1200 / 1200 Balance -425 / -425 -40.375 / -40.375 1209.625 / 1209.625 Weight 47.2 kg Intake: IV 275 / 275 1159.625 / 6899.756 8642.625 / 1209.625 Cleviprex Inj 25 mg In 50 ml @ 50 / 50 150 / 150 100 / 100 1 MG/HR 2 mls/hr IV.CONT TITRATE PRN Rx#:[id number] Diprivan 1000 mg/100 ml Inj 1, 50 / 50 000 mg In 100 ml @ 5 MCG/KG/MIN 1.361 mls/hr IV.CONT TITRATE PRN Rx#:[id number] Sodium Chloride 23.4% Inj 38.5 1009.625 / 8454.171 8463.625 / 1009.625 MEQ In Sterile Water for Inj 1, 000 ML @ 84 mls/hr IV.CONT . Q12H2M [facility] Rx#:[id number] Maxipime Inj 2,000 MG In NS Inj 100 / 100 100 / 100 100 ML @ 200 mls/hr IV.SIG Q12H [facility] Rx#:[id number] fentaNYL 10 mcg/mL Premix Drip 75 / 75 2,500 mcg In 250 ml @ 50 MCG/HR 5 mls/hr IV.SIG TITRATE PRN Rx #:[id number] Oral 50 / 50 Output: Urine 750 / 750 1200 / 1200 Other: Date of Last Bowel Movement 02/09/18 02/09/18 02/09/18 # Bowel Movements 0 # Incontinent Bowel Movements 0 0 Narrative: GENERAL: Mid aged A/A awake and dyspneic HEENT: PERRL Eyes without icterus. mmm. NECK: Without adenopathy or thyroid enlargement. trachea midline. CHEST: Scattered wheeze bilaterally, Occ Basal crackles.decreased breath sounds. CARDIAC: normal rate, regular rhythm. sinus. ABDOMEN: soft, nontender, nondistended. EXTREMITIES: No clubbing, cyanosis, or edema. NEURO: awake moves all. Reflexes 1 +. - Urinary Catheter Management Straight Cath placed during this visit: no Results - Labs CBC & Chem 7: 02/10/18 03:00 02/10/18 03:00 Laboratory Results - last 24 hr 02/09/18 02/09/1802/09/18 12:44 17:04 21:17 WBC RBC Hgb Hct MCV MCH MCHC RDW Plt Count MPV Prelim Diff (Auto) Neut % (Auto) Lymph % (Auto) Morrison % (Auto) Eos % (Auto) Baso % (Auto) Neut # (Auto) Lymph # (Auto) Morrison # (Auto) Eos # (Auto) Baso # (Auto) WBC Differential Diff Scan Differential Comment Platelet Estimate Platelet Morphology Puncture Site Patient Temperature O2 Saturation ABG pH ABG pCO2 ABG pO2 ABG HCO3 ABG O2 Content ABG Base Excess ABG Methemoglobin David Test Hemoglobin Carboxyhemoglobin O2 Delivery Device Vent Setting Inspired O2 Critical Value Sodium Potassium Chloride Carbon Dioxide Anion Gap BUN Creatinine Estimated GFR POC Glucose 168 H 128 H 146 H Random Glucose Calcium Phosphorus Magnesium Total Bilirubin AST ALT Alkaline Phosphatase Total Protein Albumin 02/09/18 02/10/18 02/10/18 22:57 03:00 03:00 WBC 23.8 H D RBC 3.76 L Hgb 11.7 Hct 32.5 L MCV 86.4 MCH 31.1 MCHC 36.0 RDW 18.8 H Plt Count 182 MPV 8.9 Prelim Diff (Auto) Slide review pending Neut % (Auto) 91.6 H Lymph % (Auto) 4.0 L Morrison % (Auto) 3.9 Eos % (Auto) 0.4 Baso % (Auto) 0.1 Neut # (Auto) 21.8 H Lymph # (Auto) 1.0 Morrison # (Auto) 0.9 Eos # (Auto) 0.1 Baso # (Auto) 0.0 WBC Differential . Diff Scan Auto diff confirmed Differential Comment . Platelet Estimate Normal Platelet Morphology Normal Puncture Site Patient Temperature O2 Saturation ABG pH ABG pCO2 ABG pO2 ABG HCO3 ABG O2 Content ABG Base Excess ABG Methemoglobin David Test Hemoglobin Carboxyhemoglobin O2 Delivery Device Vent Setting Inspired O2 Critical Value Sodium 142 Potassium 4.2 Chloride 104 D Carbon Dioxide 30.8 Anion Gap 7 BUN 31 H Creatinine 0.62 Estimated GFR Greater than 89 POC Glucose 143 H Random Glucose 185 H Calcium 9.1 Phosphorus 3.1 Magnesium 2.4 D Total Bilirubin 0.6 AST 42 H ALT 50 Alkaline Phosphatase 76 Total Protein 6.3 L Albumin 2.5 L 02/10/18 02/10/18 05:34 10:52 WBC RBC Hgb Hct MCV MCH MCHC RDW Plt Count MPV Prelim Diff (Auto) Neut % (Auto) Lymph % (Auto) Morrison % (Auto) Eos % (Auto) Baso % (Auto) Neut # (Auto) Lymph # (Auto) Morrison # (Auto) Eos # (Auto) Baso # (Auto) WBC Differential Diff Scan Differential Comment Platelet Estimate Platelet Morphology Puncture Site Left radial Patient Temperature 98.6 O2 Saturation 90 ABG pH 7.50 H ABG pCO2 38 ABG pO2 71 ABG HCO3 30 H ABG O2 Content 14.0 ABG Base Excess 6.5 H ABG Methemoglobin 2.2 H David Test Present Hemoglobin 11.0 L Carboxyhemoglobin 1.4 O2 Delivery Device Bipap Vent Setting [id number] Inspired O2 30 Critical Value No Sodium Potassium Chloride Carbon Dioxide Anion Gap BUN Creatinine Estimated GFR POC Glucose 209 H Random Glucose Calcium Phosphorus Magnesium Total Bilirubin AST ALT Alkaline Phosphatase Total Protein Albumin - Imaging Impressions Abdomen X-Ray 02/09/18 00:00 CONCLUSION: Malposition of the Dobbhoff tube tip which appears to be located within the right lower lobe bronchiole. This should be removed and re-placed into the stomach. Chest X-Ray 02/10/18 06:00 CONCLUSION: Trace right base atelectasis. Interim extubation and nasogastric tube removal Assessment and Plan - Assessment (1) Respiratory failure requiring intubation Code(s): J96.90 - Respiratory failure, unspecified, unspecified whether with hypoxia or hypercapnia Status: Acute (2) Atrial fibrillation Code(s): I48.91 - Unspecified atrial fibrillation Status: Acute (3) HTN (hypertension) Code(s): I10 - Essential (primary) hypertension Status: Acute (4) Hyperlipidemia Code(s): E78.5 - Hyperlipidemia, unspecified Status: Acute (5) Diabetes Code(s): E11.9 - Type 2 diabetes mellitus without complications Status: Acute (6) Emphysema lung Code(s): J43.9 - Emphysema, unspecified Status: Acute (7) COPD (chronic obstructive pulmonary disease) Code(s): J44.9 - Chronic obstructive pulmonary disease, unspecified Status: Acute - Plan 1. BiPAP 10/5 CM , FIO2 35 % at HS and PRN 2. Nebs q6h duoneb 3. O2 N/C 3 L when stable. 4. Solumedrol to 40 MG IV Q12H 5. Diet soft low salt 6. CBC,BMP in am 7. Up in chair as tolerated. 8. Continue antibiotics , Levaquin IV (7) COPD (chronic obstructive pulmonary disease) Qualifiers: COPD type: COPD with acute exacerbation Qualified Code(s): J44.1 - Chronic obstructive pulmonary disease with (acute) exacerbation
[2018-02-10] MEDS: Dexmedetomidine Inj 200 MCG in Sodium Chlor 0.9% Inj 48 ML IV.CONT PRN ×2 (15:48→19:35)
[2018-02-10] MEDS: Senna/Docusate Sodium 8.6/50 MG Tablet PO SCH ×2 (18:08→21:03)
[2018-02-10] MEDS: Famotidine 20 MG Tablet PO SCH ×2 (18:08→21:03)
[2018-02-10] MEDS: Gabapentin 300 MG Capsule PO SCH ×2 (18:08→21:03)
[2018-02-10] MEDS: Enoxaparin Inj 40 MG/0.4 ML Syringe SQ SCH (21:03)
[2018-02-10] MEDS: Digoxin 125 MCG Tablet PO SCH (21:04)
[2018-02-11] MEDS: Artificial Tears Opth Drops 15 ML Bottle EACH EYE SCH ×3 (00:26→17:30)
[2018-02-11] MEDS: Dexmedetomidine Inj 200 MCG in Sodium Chlor 0.9% Inj 48 ML IV.CONT PRN (02:31)
[2018-02-11] MEDS: Oral Hygiene Kit OROPHARYNG SCH ×3 (04:00→15:43)
[2018-02-11 06:25] LABS: Anion Gap 9 meq/L (5-15); Blood Urea Nitrogen 23 mg/dL (7-18); Calcium 8.2 mg/dL (8.5-10.1); Carbon Dioxide 26.3 meq/L (21.0-32.0); Chloride 103 meq/L (98-107); Glomerular Filtration Rate Greater Than 89 mL/min (>89); Glucose,Random 182 mg/dL (74-106); Magnesium 2.3 mg/dL (1.5-2.5); Potassium 4.8 meq/L (3.5-5.1)
[2018-02-11 06:26] LABS: Sodium 138 meq/L (136-145)
[2018-02-11] MEDS: Insulin NovoLIN Regular Correctional Sugar Inj SQ SCH ×3 (06:27→17:32)
[2018-02-11] MEDS: Chlorhexidine 0.12% Oral Kit 15 ML UDC OROPHARYNG SCH ×2 (08:24→20:49)
[2018-02-11 08:30] LABS: Baso % (Auto) 0.2 % (0.0-2.0); Eos % (Auto) 0.1 % (0.0-4.0); Hematocrit 34.9 % (35.0-46.0); Hemoglobin 11.6 gm/dL (11.6-15.3); Lymph # (Auto) 1.3 th/mm3 (1.0-4.8); Lymph % (Auto) 6.4 % (9.0-44.0); Mean Corpuscular HGB Conc 33.2 % (32.0-36.0); Mean Corpuscular Hemoglobin 28.3 pg (27.0-34.0); Mean Corpuscular Volume 85.4 fL (80.0-100.0); Mono # (Auto) 1.9 th/mm3 (0.0-0.9); Mono % (Auto) 8.8 % (0.0-8.0); Neut # (Auto) 17.7 th/mm3 (1.8-7.7); Neut % (Auto) 84.5 % (16.0-70.0); Platelet Count 179 th/mm3 (150-450); Red Blood Count 4.09 mil/mm3 (4.00-5.30); Red Cell Distribution Width 18.5 % (11.6-17.2)
[2018-02-11] MEDS: MethylPREDNISolone Sod Succinate Inj 40 MG/ML Vial IV.PUSH SCH ×2 (08:40→20:51)
[2018-02-11 09:08] LABS: Lymphocytes 8 % (9-44); Metamyelocytes 3 % (0-1); Monocytes 11 % (0-8); Myelocytes 1 % (0-0); Platelet Estimate Normal (Normal); Platelet Morphology Normal (Normal); Tallied Nucleated RBC 1 (0-0)
[2018-02-11] MEDS: Digoxin 125 MCG Tablet PO SCH (09:53)
[2018-02-11] MEDS: Famotidine 20 MG Tablet PO SCH ×2 (09:54→20:50)
[2018-02-11] MEDS: Senna/Docusate Sodium 8.6/50 MG Tablet PO SCH ×2 (09:54→20:50)
[2018-02-11] MEDS: Gabapentin 300 MG Capsule PO SCH ×2 (09:55→20:50)
[2018-02-11] MEDS: dilTIAZem 30 MG Tablet PO SCH ×4 (09:55→20:49)
[2018-02-11] MEDS: Insulin Detemir Inj 1,000 UNIT/10 ML Vial SQ SCH ×2 (09:55→20:50)
[2018-02-11] MEDS: Clevidipine Inj 25 MG/50 ML VIAL IV.CONT PRN ×4 (10:02→23:14)
--- NOTE | 2018-02-11 11:27 | P.PNCC ---
Subjective Subjective Remarks/Hospital Course: 67yF with history of COPD was originally admitted by the Hospitalist service for hypercapnea and COPD exacerbation. Per their admission note: The patient is a 67-year-old female with a known history of COPD, DM, HTN, HLD, Afib admitted with increasing shortness of breath, associated hypoxemia, hospitalized for same multiple times. Patient is with worsening shortness of breath, using accessory repiratory muscle in tripod position. ABG is reassuring , however due to increased labored breathing she is placed on bipap.The patient follow with Dr Sterling weems. Patient received nebs, solumedrol. Evaluated by pulm. Patient is transfered to ICU. Noted with elevated BP. Patient still with labored breathing dispite bipap use. Patient reports she smokes a pack of cigarettes a day for over 30 years, continues to smoke to the time of hospitalization. She was counselled extensively regarding smoking cessations , she expressed understanding, and will try to quit, however says is hard to quit. despite aggressive non-invasive ventilatory strategies, patient decompensated and was emergently intubated by Dr. Bloom (see separate procedural documentation) . patient is intubated and cannot provide any additional history. ROS unobtainable. the remainder of the history taken from prior medical record documentation. 02/03: Remains intubated sedated. Currently synchronous with the ventilator. However requiring Levophed to maintain map above 65 currently on 6 mcg. This could be sedation related or due to sepsis. Cultures are pending at this time 02/04: Continues to be intubated sedated moves all extremities. Requires Levophed to keep map above 65. Chest exam reveals improved bilateral wheezing. 02/05: Extubated yesterday initially tolerated well however overnight became more short of breath altered. Had ABG showed a pH of 7.19 PCO2 72. Placed on BiPAP with improvement in symptoms currently slightly lethargic appears more awake pH at 5 AM was 7.127 PCO2 has come down to 57. Continue BiPAP may require reintubation but appears stable on BiPAP at this time 02/06: Reintubated on 02/05 for worsening resp distress. 02/07: Sedated, orally intubated on mechanical ventilation. 02/08: Afebrile. T-max 99. Becomes extremely agitated on weaning. Failed CPAP trial x412/. Will start dexmedetomidine drip. Positive BM. Tolerating tube feeds at goal. Remains quite hyperglycemic. Adjusting insulin detemir today. 02/09: Afebrile. Extubated today. Dexamethasone has been discontinued. BiPAP at bedside if needed. Arousable and follows commands. Answers 1 voice question. Still retracting. 02/10: Afebrile. On intermittent BiPAP overnight. Arousable and follows commands. Intermittently retracts. Failed swallow evaluation. Failed to place NG or Keofeed yesterday. Remains on clevidipine drip. Subjective 02/11: Afebrile. Remains on intermittent BiPAP. Arousable and follows commands. Passed speech evaluation. Currently on pured diet. Able to take oral antihypertensives. Objective Vital Signs / I&O: Vital Signs 02/10/18 12:31 02/10/18 13:45 02/10/18 13:52 Temperature Pulse Rate 110 H Respiratory Rate 51 H Blood Pressure 145/69 H Pulse Oximetry 100 100 100 02/10/18 14:00 02/10/18 14:15 02/10/18 14:30 Temperature Pulse Rate 111 H 108 H 109 H Respiratory Rate 34 H 58 H 50 H Blood Pressure 148/71 H 133/69 133/70 Pulse Oximetry 100 100 100 02/10/18 14:45 02/10/18 14:51 02/10/18 15:00 Temperature Pulse Rate 104 H 101 H 106 H Respiratory Rate 44 H 28 H 48 H Blood Pressure 140/68 141/69 H Pulse Oximetry 100 100 02/10/18 15:15 02/10/18 15:30 02/10/18 15:45 Temperature Pulse Rate 106 H 110 H 106 H Respiratory Rate 50 H 44 H 39 H Blood Pressure 143/67 H 136/66 142/68 H Pulse Oximetry 100 100 100 02/10/18 16:00 02/10/18 16:15 02/10/18 16:30 Temperature Pulse Rate 102 H 104 H 105 H Respiratory Rate 49 H 46 H 46 H Blood Pressure 129/61 142/68 H 136/70 Pulse Oximetry 100 100 100 02/10/18 16:38 02/10/18 16:45 02/10/18 17:00 Temperature Pulse Rate 102 H 107 H Respiratory Rate 42 H 29 H Blood Pressure 161/72 H 153/70 H Pulse Oximetry 100 100 100 02/10/18 17:15 12/29/18 17:30 02/10/18 17:45 Temperature Pulse Rate 100 H 100 H 100 H Respiratory Rate 27 H 28 H 24 Blood Pressure 134/68 130/66 127/64 Pulse Oximetry 100 100 100 02/10/18 18:00 02/10/18 18:15 02/10/18 18:30 Temperature Pulse Rate 98 H 93 H 95 H Respiratory Rate 33 H 36 H 30 H Blood Pressure 138/66 135/69 147/76 H Pulse Oximetry 100 100 100 02/10/18 18:45 02/10/18 19:00 02/10/18 19:15 Temperature Pulse Rate 94 H 95 H 96 H Respiratory Rate 33 H 24 22 Blood Pressure 142/74 H 138/74 134/71 Pulse Oximetry 100 100 100 02/10/18 19:30 02/10/18 19:45 02/10/18 20:00 Temperature 98.1 F Pulse Rate 93 H 96 H 102 H Respiratory Rate 26 H 31 H 25 H Blood Pressure 130/65 149/75 H 147/75 H Pulse Oximetry 100 100 100 02/10/18 20:04 02/10/18 20:15 02/10/18 20:30 Temperature Pulse Rate 93 H 98 H 103 H Respiratory Rate 37 H 38 H 37 H Blood Pressure 156/78 H 140/68 Pulse Oximetry 100 100 100 02/10/18 20:45 02/10/18 21:00 02/10/18 21:15 Temperature Pulse Rate 103 H 103 H 104 H Respiratory Rate 46 H 41 H 43 H Blood Pressure 150/69 H 146/75 H 149/78 H Pulse Oximetry 100 100 100 02/10/18 21:30 02/10/18 21:45 02/10/18 22:00 Temperature Pulse Rate 103 H 95 H 104 H Respiratory Rate 43 H 41 H 43 H Blood Pressure 126/73 125/70 153/70 H Pulse Oximetry 100 100 100 02/10/18 22:15 02/10/18 22:30 02/10/18 22:45 Temperature Pulse Rate 100 H 98 H 96 H Respiratory Rate 44 H 42 H 36 H Blood Pressure 138/72 149/76 H 143/69 H Pulse Oximetry 100 100 100 02/10/18 23:00 02/10/18 23:15 02/10/18 23:30 Temperature Pulse Rate 93 H 98 H 99 H Respiratory Rate 39 H 25 H 40 H Blood Pressure 150/73 H 152/73 H 167/80 H Pulse Oximetry 100 100 100 02/10/18 23:45 02/11/18 00:00 02/11/18 00:05 Temperature 97.9 F Pulse Rate 98 H 109 H 104 H Respiratory Rate 38 H 39 H 24 Blood Pressure 145/78 H 192/87 H Pulse Oximetry 100 100 100 02/11/18 00:15 02/11/18 00:30 02/11/18 00:45 Temperature Pulse Rate 95 H 101 H 103 H Respiratory Rate 40 H 41 H 47 H Blood Pressure 154/72 H 141/66 H 157/76 H Pulse Oximetry 100 100 100 02/11/18 01:00 02/11/18 01:15 02/11/18 01:30 Temperature Pulse Rate 103 H 100 H 101 H Respiratory Rate 48 H 39 H 46 H Blood Pressure 152/80 H 125/67 153/77 H Pulse Oximetry 100 100 100 02/11/18 01:45 02/11/18 02:00 02/11/18 02:15 Temperature Pulse Rate 107 H 103 H 108 H Respiratory Rate 29 H 39 H 32 H Blood Pressure 176/85 H 156/77 H 161/81 H Pulse Oximetry 100 100 100 02/11/18 02:30 02/11/18 02:45 02/11/18 03:00 Temperature Pulse Rate 104 H 105 H 108 H Respiratory Rate 43 H 44 H 32 H Blood Pressure 154/73 H 162/78 H 162/76 H Pulse Oximetry 100 100 100 02/11/18 03:15 02/11/18 03:30 02/11/18 03:42 Temperature Pulse Rate 118 H 96 H 98 H Respiratory Rate 36 H 39 H 24 Blood Pressure 184/96 H 156/72 H Pulse Oximetry 100 100 02/11/18 03:45 02/11/18 04:00 02/11/18 04:06 Temperature 98.2 F Pulse Rate 97 H 109 H Respiratory Rate 40 H 25 H Blood Pressure 141/63 H 144/74 H Pulse Oximetry 100 100 100 02/11/18 07:58 02/11/18 08:00 02/11/18 09:00 Temperature 97.8 F Pulse Rate 106 H 106 H 109 H Respiratory Rate 12 26 H Blood Pressure 167/80 H Pulse Oximetry 100 100 Intake & Output 02/10/18 02/11/18 02/11/18 18:59 06:59 18:59 Intake Total 1359.625 / 3138.325 0157.625 / 1559.625 Output Total 1300 / 1300 1800 / 1800 Balance 59.625 / 59.625 -240.375 / -240.375 Weight 46.6 kg Intake: IV 1359.625 / 4391.180 0284.625 / 1559.625 Cleviprex Inj 25 mg In 50 ml @ 200 / 200 100 / 100 1 MG/HR 2 mls/hr IV.CONT TITRATE PRN Rx#:[id number] Precedex Inj 200 MCG In NS Inj 50 / 50 100 / 100 48 ML @ 0.2 MCG/KG/HR 2.31 mls/ hr IV.CONT TITRATE PRN Rx#: [id number] Sodium Chloride 23.4% Inj 38.5 1009.625 / 8744.784 7393.625 / 1009.625 MEQ In Sterile Water for Inj 1, 000 ML @ 84 mls/hr IV.CONT . Q12H2M DULCE Rx#:[id number] Maxipime Inj 2,000 MG In NS Inj 100 / 100 200 / 200 100 ML @ 200 mls/hr IV.SIG Q12H DULCE Rx#:[id number] Levaquin 750 mg Premix Inj 150 150 / 150 ML @ 100 mls/hr IV.SIG Q48H DULCE Rx#:[id number] Output: Urine 1300 / 1300 1800 / 1800 Other: Date of Last Bowel Movement 02/09/18 02/09/18 02/09/18 # Bowel Movements 0 0 Result Diagrams: 02/11/18 08:07 02/11/18 05:05 Other Results: Microbiology 02/10/18 13:17 Blood - Peripheral Aerobic Blood Culture - Preliminary No growth in 1 day 02/10/18 13:17 Blood - Peripheral Anaerobic Blood Culture - Preliminary No growth in 1 day 02/10/18 11:33 Blood - Peripheral Aerobic Blood Culture - Preliminary No growth in 1 day 02/10/18 11:33 Blood - Peripheral Anaerobic Blood Culture - Preliminary No growth in 1 day 02/02/18 05:25 Blood - Peripheral Aerobic Blood Culture - Final No growth in 5 days 02/02/18 05:25 Blood - Peripheral Anaerobic Blood Culture - Final No growth in 5 days 02/02/18 05:20 Blood - Peripheral Aerobic Blood Culture - Final No growth in 5 days 02/02/18 05:20 Blood - Peripheral Anaerobic Blood Culture - Final No growth in 5 days 02/03/18 01:04 Sputum - Endotracheal Gram Stain - Final 02/03/18 01:04 Sputum - Endotracheal Sputum Culture - Final Rare growth normal respiratory palma 02/02/18 06:30 Nasal Wash Influenza Types A,B Antigen - Final Negative for FLU A and B antigen Infection due to influenza A or B cannot be ruled out since the antigen present in the sample may be below the detection limit of the test. Imaging: Chest X-Ray 02/02/18 00:00 CONCLUSION: 1. Minimal blunting of the costophrenic recesses consistent with possible tiny pleural effusions or pleural thickening. 2. No focal infiltrate or pulmonary vascular congestion. 3. Endotracheal tube in good position 2 cm above the vinicio. Chest X-Ray 02/02/18 04:33 CONCLUSION: The lungs are clear. Chest X-Ray 02/03/18 00:00 CONCLUSION: Lungs are clear. ET tube in good position. Chest X-Ray 02/05/18 15:39 CONCLUSION: 1. The ET tube appears to be in good position. No evidence of pneumothorax. 2. The lungs are hyper aerated and grossly clear. Head MRI 02/08/18 00:00 CONCLUSION: 1. No acute intracranial abnormality. 2. Acute pansinusitis. Abdomen X-Ray 02/09/18 00:00 CONCLUSION: Malposition of the Dobbhoff tube tip which appears to be located within the right lower lobe bronchiole. This should be removed and re-placed into the stomach. Chest X-Ray 02/09/18 06:00 CONCLUSION: No significant change. Lungs remain clear. Chest X-Ray 02/10/18 06:00 CONCLUSION: Trace right base atelectasis. Interim extubation and nasogastric tube removal Objective Remarks: GENERAL: This is a 67-year-old AA female currently on nasal cannula no acute distress SKIN: Warm and dry. No rash HEAD: Atraumatic. Normocephalic. EYES: Pupils equal and round. No scleral icterus. No injection or drainage. ENT: No nasal bleeding or discharge. Mucous membranes pink and moist. NECK: Trachea midline. No JVD. Left IJ CVL removed 02/10. No hematoma CARDIOVASCULAR: Tachycardic, RR. S1, S2. No S4. Without murmur RESPIRATORY: Essentially. Clear to auscultation. Breath sounds equal bilaterally. End expiratory wheezing. Intermittent retracting GASTROINTESTINAL: Abdomen soft, non-tender, nondistended. Hypoactive bowel sounds appreciated. MUSCULOSKELETAL: Extremities with trace bilateral lower extremity edema. No obvious deformities. NEUROLOGICAL: Arousable and follows simple commands. Answer simple questions. Moves all 4 extremities spontaneously. Assessment and Plan - Assessment and Plan Plan: Neurologic/Psych Acute metabolic encephalopathy CO2 narcosis/Hypercarbic encephalopathy Peripheral neuropathy -Altered mental status secondary to CO2 narcosis Currently on gabapentin 300 mg twice daily/home medication -Resume vitamin B12 when indicated Negative MRI brain/EEG Respiratory: acute, severe COPD exacerbation acute hypercarbic and hypoxic respiratory failure - Extubated 02/04 initially tolerated well overnight developed hypercapnic respiratory failure. - Required reintubation for worsening resp satus despite BIPAP on 02/05 extubated again 02/09 - Scheduled albuterol/ipratropium aerosols every 4 hours and prn albuterol nebs. - IV methylprednisolone succinate 40 mg IV every 8 hours and inhaled budesonide 0.5/2 1 inhalation twice daily Patient is on furosemide/formoterol 160/4.5 2 puffs twice daily at home along with albuterol HFA and ipratropium inhaler - hob elevated at 30 degrees - wean fio2 for goal spo2 > 90%. Currently on nasal cannula 2 L -Followed by pulmonology Follow-up chest x-ray in a.m. 02/12 Cardiovascular: Essential hypertension History of atrial fibrillation currently normal sinus rhythm -Increase home medication lisinopril from 20 mg daily to twice daily. -Restart diltiazem 30 mg 4 times daily. On 120 mg daily at home. -As needed labetalol, hydralazine Nitropaste and clonidine -2D echocardiogram 03/02 revealed EF of 60%. Mild MR/TR. -Check digoxin level currently 1.3. Decreased 0.1 25 mg daily digoxin start recheck level 02/12 -81 mg daily. Aspirin will be resumed Renal/: - Strict I/Os - no indication for man at this time. FEN/GI: Acute protein calorie malnutrition- severe Hypernatremia Currently on pured diet. Speech evaluation for swallow. Resume today - ICU electrolyte protocol initiated. - AM cmp Heme/ID: Leukocytosis -Continue cefepime and levofloxacin - f/u culture data blood cultures 02/02 and sputum culture 02/03 no growth to date. Influenza a and B- Endocrine: Diabetes Patient is on scheduled insulin detemir 8 units twice daily. At home on 8 units twice daily. Holding insulin detemir status post extubation and if n.p.o. -- SSI with novulin R medium protocol every 6 hours. Check TSH i was 0.573 Prophylaxis: GI Prophylaxis Famotidine DVT Prophylaxis -- SCDs -Enoxaparin Lines: piv's Left IJ CVL placed 02/02. Removed 02/10 Level 3 follow-up.
--- NOTE | 2018-02-11 14:39 | P.PN ---
Subjective Interval history: Off BIPAP today and on N/C o2 3L.Able to take a diet. No fever. Physical Exam Vital signs: Vital Signs 02/10/18 14:45 02/10/18 14:51 02/10/18 15:00 Temperature Pulse Rate 104 H 101 H 106 H Respiratory Rate 44 H 28 H 48 H Blood Pressure 140/68 141/69 H Pulse Oximetry 100 100 02/10/18 15:15 02/10/18 15:30 02/10/18 15:45 Temperature Pulse Rate 106 H 110 H 106 H Respiratory Rate 50 H 44 H 39 H Blood Pressure 143/67 H 136/66 142/68 H Pulse Oximetry 100 100 100 02/10/18 16:00 02/10/18 16:15 02/10/18 16:30 Temperature Pulse Rate 102 H 104 H 105 H Respiratory Rate 49 H 46 H 46 H Blood Pressure 129/61 142/68 H 136/70 Pulse Oximetry 100 100 100 02/10/18 16:38 02/10/18 16:45 02/10/18 17:00 Temperature Pulse Rate 102 H 107 H Respiratory Rate 42 H 29 H Blood Pressure 161/72 H 153/70 H Pulse Oximetry 100 100 100 02/10/18 17:15 02/10/18 17:30 02/10/18 17:45 Temperature Pulse Rate 100 H 100 H 100 H Respiratory Rate 27 H 28 H 24 Blood Pressure 134/68 130/66 127/64 Pulse Oximetry 100 100 100 02/10/18 18:00 02/10/18 18:15 02/10/18 18:30 Temperature Pulse Rate 98 H 93 H 95 H Respiratory Rate 33 H 36 H 30 H Blood Pressure 138/66 135/69 147/76 H Pulse Oximetry 100 100 100 02/10/18 18:45 02/10/18 19:00 02/10/18 19:15 Temperature Pulse Rate 94 H 95 H 96 H Respiratory Rate 33 H 24 22 Blood Pressure 142/74 H 138/74 134/71 Pulse Oximetry 100 100 100 02/10/18 19:30 02/10/18 19:45 02/10/18 20:00 Temperature 98.1 F Pulse Rate 93 H 96 H 102 H Respiratory Rate 26 H 31 H 25 H Blood Pressure 130/65 149/75 H 147/75 H Pulse Oximetry 100 100 100 02/10/18 20:04 02/10/18 20:15 02/10/18 20:30 Temperature Pulse Rate 93 H 98 H 103 H Respiratory Rate 37 H 38 H 37 H Blood Pressure 156/78 H 140/68 Pulse Oximetry 100 100 100 02/10/18 20:45 02/10/18 21:00 02/10/18 21:15 Temperature Pulse Rate 103 H 103 H 104 H Respiratory Rate 46 H 41 H 43 H Blood Pressure 150/69 H 146/75 H 149/78 H Pulse Oximetry 100 100 100 02/10/18 21:30 02/10/18 21:45 02/10/18 22:00 Temperature Pulse Rate 103 H 95 H 104 H Respiratory Rate 43 H 41 H 43 H Blood Pressure 126/73 125/70 153/70 H Pulse Oximetry 100 100 100 02/10/18 22:15 02/10/18 22:30 02/10/18 22:45 Temperature Pulse Rate 100 H 98 H 96 H Respiratory Rate 44 H 42 H 36 H Blood Pressure 138/72 149/76 H 143/69 H Pulse Oximetry 100 100 100 02/10/18 23:00 02/10/18 23:15 02/10/18 23:30 Temperature Pulse Rate 93 H 98 H 99 H Respiratory Rate 39 H 25 H 40 H Blood Pressure 150/73 H 152/73 H 167/80 H Pulse Oximetry 100 100 100 02/10/18 23:45 02/11/18 00:00 02/11/18 00:05 Temperature 97.9 F Pulse Rate 98 H 109 H 104 H Respiratory Rate 38 H 39 H 24 Blood Pressure 145/78 H 192/87 H Pulse Oximetry 100 100 100 02/11/18 00:15 02/11/18 00:30 02/11/18 00:45 Temperature Pulse Rate 95 H 101 H 103 H Respiratory Rate 40 H 41 H 47 H Blood Pressure 154/72 H 141/66 H 157/76 H Pulse Oximetry 100 100 100 02/11/18 01:00 02/11/18 01:15 02/11/18 01:30 Temperature Pulse Rate 103 H 100 H 101 H Respiratory Rate 48 H 39 H 46 H Blood Pressure 152/80 H 125/67 153/77 H Pulse Oximetry 100 100 100 02/11/18 01:45 02/11/18 02:00 02/11/18 02:15 Temperature Pulse Rate 107 H 103 H 108 H Respiratory Rate 29 H 39 H 32 H Blood Pressure 176/85 H 156/77 H 161/81 H Pulse Oximetry 100 100 100 02/11/18 02:30 02/11/18 02:45 02/11/18 03:00 Temperature Pulse Rate 104 H 105 H 108 H Respiratory Rate 43 H 44 H 32 H Blood Pressure 154/73 H 162/78 H 162/76 H Pulse Oximetry 100 100 100 02/11/18 03:15 02/11/18 03:30 02/11/18 03:42 Temperature Pulse Rate 118 H 96 H 98 H Respiratory Rate 36 H 39 H 24 Blood Pressure 184/96 H 156/72 H Pulse Oximetry 100 100 02/11/18 03:45 02/11/18 04:00 02/11/18 04:06 Temperature 98.2 F Pulse Rate 97 H 109 H Respiratory Rate 40 H 25 H Blood Pressure 141/63 H 144/74 H Pulse Oximetry 100 100 100 02/11/18 07:58 02/11/18 08:00 02/11/18 09:00 Temperature 97.8 F Pulse Rate 106 H 106 H 109 H Respiratory Rate 12 26 H Blood Pressure 167/80 H Pulse Oximetry 100 100 02/11/18 12:00 02/11/18 12:07 Temperature 97.6 F Pulse Rate 116 H 113 H Respiratory Rate 28 H 28 H Blood Pressure 161/76 H Pulse Oximetry 100 Intake & Output 02/10/18 02/11/18 02/11/18 18:59 06:59 18:59 Intake Total 1359.625 / 4163.909 3028.625 / 1559.625 Output Total 1300 / 1300 1800 / 1800 Balance 59.625 / 59.625 -240.375 / -240.375 Weight 46.6 kg Intake: IV 1359.625 / 4177.096 1415.625 / 1559.625 Cleviprex Inj 25 mg In 50 ml @ 200 / 200 100 / 100 1 MG/HR 2 mls/hr IV.CONT TITRATE PRN Rx#:[id number] Precedex Inj 200 MCG In NS Inj 50 / 50 100 / 100 48 ML @ 0.2 MCG/KG/HR 2.31 mls/ hr IV.CONT TITRATE PRN Rx#: [id number] Sodium Chloride 23.4% Inj 38.5 1009.625 / 9468.124 7312.625 / 1009.625 MEQ In Sterile Water for Inj 1, 000 ML @ 84 mls/hr IV.CONT . Q12H2M DULCE Rx#:[id number] Maxipime Inj 2,000 MG In NS Inj 100 / 100 200 / 200 100 ML @ 200 mls/hr IV.SIG Q12H DULCE Rx#:[id number] Levaquin 750 mg Premix Inj 150 150 / 150 ML @ 100 mls/hr IV.SIG Q48H DULCE Rx#:[id number] Output: Urine 1300 / 1300 1800 / 1800 Other: Date of Last Bowel Movement 02/09/18 02/09/18 02/09/18 # Bowel Movements 0 0 Narrative: GENERAL: Mid aged A/A awake and dyspneic HEENT: PERRL Eyes without icterus. mmm. NECK: Without adenopathy or thyroid enlargement. trachea midline. CHEST: Scattered wheeze bilaterally, few Basal crackles.decreased breath sounds. CARDIAC: normal rate, regular rhythm. sinus. ABDOMEN: soft, nontender, nondistended. EXTREMITIES: No clubbing, cyanosis, or edema. NEURO: awake moves all. Reflexes 1 +. - Urinary Catheter Management Straight Cath placed during this visit: no Results - Labs CBC & Chem 7: 02/11/18 08:07 02/11/18 05:05 Laboratory Results - last 24 hr 02/10/18 02/10/18 02/11/18 17:46 23:04 05:05 WBC RBC Hgb Hct MCV MCH MCHC RDW Plt Count MPV Prelim Diff (Auto) Neut % (Auto) Lymph % (Auto) [place] % (Auto) Eos % (Auto) Baso % (Auto) Neut # (Auto) Lymph # (Auto) [place] # (Auto) Eos # (Auto) Baso # (Auto) WBC Differential Seg Neuts % (Manual) Band Neuts % (Manual) Lymphocytes % (Manual) Monocytes % (Manual) Metamyelocytes % (Man) Myelocytes % (Man) Abs Neuts (Manual) Nucleated RBCs/100 WBC Differential Comment Platelet Estimate Platelet Morphology Sodium 138 Potassium 4.8 Chloride 103 Carbon Dioxide 26.3 Anion Gap 9 BUN 23 H Creatinine 0.56 Estimated GFR Greater than 89 POC Glucose 212 H 118 H Random Glucose 182 H Calcium 8.2 L D Phosphorus 3.0 Magnesium 2.3 02/11/18 02/11/18 08:07 12:32 WBC 21.0 H RBC 4.09 Hgb 11.6 Hct 34.9 L MCV 85.4 MCH 28.3 MCHC 33.2 RDW 18.5 H Plt Count 179 MPV 9.0 Prelim Diff (Auto) Slide review pending Neut % (Auto) 84.5 H Lymph % (Auto) 6.4 L [place] % (Auto) 8.8 H Eos % (Auto) 0.1 Baso % (Auto) 0.2 Neut # (Auto) 17.7 H Lymph # (Auto) 1.3 [place] # (Auto) 1.9 H Eos # (Auto) 0.0 Baso # (Auto) 0.0 WBC Differential Manual diff final Seg Neuts % (Manual) 73 H Band Neuts % (Manual) 4 Lymphocytes % (Manual) 8 L Monocytes % (Manual) 11 H Metamyelocytes % (Man) 3 H Myelocytes % (Man) 1 H Abs Neuts (Manual) 17.0 H Nucleated RBCs/100 WBC 1 H Differential Comment . Platelet Estimate Normal Platelet Morphology Normal Sodium Potassium Chloride Carbon Dioxide Anion Gap BUN Creatinine Estimated GFR POC Glucose 159 H Random Glucose Calcium Phosphorus Magnesium Microbiology 02/10/18 13:17 Blood - Peripheral Aerobic Blood Culture - Preliminary No growth in 1 day 02/10/18 13:17 Blood - Peripheral Anaerobic Blood Culture - Preliminary No growth in 1 day 02/10/18 11:33 Blood - Peripheral Aerobic Blood Culture - Preliminary No growth in 1 day 02/10/18 11:33 Blood - Peripheral Anaerobic Blood Culture - Preliminary No growth in 1 day Assessment and Plan - Assessment (1) Respiratory failure requiring intubation Code(s): J96.90 - Respiratory failure, unspecified, unspecified whether with hypoxia or hypercapnia Status: Acute (2) Atrial fibrillation Code(s): I48.91 - Unspecified atrial fibrillation Status: Acute (3) HTN (hypertension) Code(s): I10 - Essential (primary) hypertension Status: Acute (4) Hyperlipidemia Code(s): E78.5 - Hyperlipidemia, unspecified Status: Acute (5) Diabetes Code(s): E11.9 - Type 2 diabetes mellitus without complications Status: Acute (6) Emphysema lung Code(s): J43.9 - Emphysema, unspecified Status: Acute (7) COPD (chronic obstructive pulmonary disease) Code(s): J44.9 - Chronic obstructive pulmonary disease, unspecified Status: Acute - Plan 1. BiPAP 10/5 CM , FIO2 35 % at HS and PRN 2. Nebs q6h duoneb 3. O2 N/C 3 L when stable. 4. cont Solumedrol to 40 MG IV Q12H 5. Diet soft low salt 6. CBC,BMP in am 7. Up in chair as tolerated. 8. Continue antibiotics , Levaquin IV (7) COPD (chronic obstructive pulmonary disease) Qualifiers: COPD type: COPD with acute exacerbation Qualified Code(s): J44.1 - Chronic obstructive pulmonary disease with (acute) exacerbation
[2018-02-11] MEDS: Enoxaparin Inj 40 MG/0.4 ML Syringe SQ SCH (20:49)
[2018-02-12] MEDS: Insulin NovoLIN Regular Correctional Sugar Inj SQ SCH ×4 (00:42→17:09)
[2018-02-12] MEDS: Oral Hygiene Kit OROPHARYNG SCH ×5 (00:42→23:21)
[2018-02-12] MEDS: Clevidipine Inj 25 MG/50 ML VIAL IV.CONT PRN ×3 (02:35→16:35)
[2018-02-12] MEDS: Artificial Tears Opth Drops 15 ML Bottle EACH EYE SCH ×3 (02:35→17:02)
--- NOTE | 2018-02-12 05:58 | XR ---
EXAM DATE: 02/12/2018 5:51 AM EST AGE/SEX: 67 years / Female INDICATIONS: Shortness of breath. CLINICAL DATA: This is the patient's subsequent encounter. Patient reports that signs and symptoms h ave been present for 1 week and indicates a pain score of Nonresponsive. MEDICAL/SURGICAL HISTORY: Chronic obstructive pulmonary disease. Emphysema. Diabetes. A-fib. Hypertension. Hyperlipidemia. Tubal ligation. COMPARISON: [facility], CHEST 1V SINGLE AP, 02/10/2018. . FINDINGS: A single AP view of the chest demonstrates the lungs to be symmetrically aerated without evidence of mass, infiltrate or effusion. The cardiomediastinal contours are unremarkable. Osseous structures a re intact. CONCLUSION: No acute cardiopulmonary process. Electronically signed by: Wolf Acevedo MD Board Certified Radiologist 02/12/2018 5:57 AM EST
[2018-02-12 07:12] LABS: Baso % (Auto) 0.1 % (0.0-2.0); Hematocrit 34.2 % (35.0-46.0); Lymph # (Auto) 0.6 th/mm3 (1.0-4.8); Lymph % (Auto) 3.6 % (9.0-44.0); Mean Corpuscular HGB Conc 32.1 % (32.0-36.0); Mean Corpuscular Hemoglobin 27.7 pg (27.0-34.0); Mean Corpuscular Volume 86.3 fL (80.0-100.0); Mean Platelet Volume 10.5 fL (7.0-11.0); Mono # (Auto) 0.5 th/mm3 (0.0-0.9); Neut # (Auto) 15.8 th/mm3 (1.8-7.7); Neut % (Auto) 93.3 % (16.0-70.0); Platelet Count 163 th/mm3 (150-450); Red Blood Count 3.96 mil/mm3 (4.00-5.30); Red Cell Distribution Width 18.1 % (11.6-17.2)
[2018-02-12 07:38] LABS: Alanine Aminotransferase 82 U/L (10-53); Albumin 2.4 g/dL (3.4-5.0); Anion Gap 7 meq/L (5-15); Aspartate Aminotransferase 28 U/L (15-37); Blood Urea Nitrogen 28 mg/dL (7-18); Carbon Dioxide 27.6 meq/L (21.0-32.0); Chloride 104 meq/L (98-107); Glomerular Filtration Rate Greater Than 89 mL/min (>89); Glucose,Random 180 mg/dL (74-106); Magnesium 2.6 mg/dL (1.5-2.5); Potassium 4.3 meq/L (3.5-5.1); Sodium 139 meq/L (136-145)
[2018-02-12 07:51] LABS: Alkaline Phosphatase 73 U/L (45-117); Digoxin 0.8 ng/mL (0.8-2.0); Phosphorus 4.3 mg/dL (2.5-4.9)
[2018-02-12] MEDS: Chlorhexidine 0.12% Oral Kit 15 ML UDC OROPHARYNG SCH ×2 (08:52→19:27)
[2018-02-12] MEDS: Insulin Detemir Inj 1,000 UNIT/10 ML Vial SQ SCH ×2 (08:52→21:07)
[2018-02-12] MEDS: dilTIAZem 30 MG Tablet PO SCH ×4 (08:53→21:08)
[2018-02-12] MEDS: Famotidine 20 MG Tablet PO SCH ×2 (08:53→21:08)
[2018-02-12] MEDS: MethylPREDNISolone Sod Succinate Inj 40 MG/ML Vial IV.PUSH SCH ×2 (08:53→21:08)
[2018-02-12] MEDS: Senna/Docusate Sodium 8.6/50 MG Tablet PO SCH ×2 (08:53→21:08)
[2018-02-12] MEDS: Gabapentin 300 MG Capsule PO SCH ×2 (08:53→21:07)
[2018-02-12] MEDS: Digoxin 125 MCG Tablet PO SCH (08:54)
[2018-02-12 09:44] LABS: Lymphocytes 3 % (9-44); Metamyelocytes 4 % (0-1); Monocytes 1 % (0-8)
[2018-02-12 09:45] LABS: Platelet Estimate Normal (Normal); Platelet Morphology Normal (Normal)
--- NOTE | 2018-02-12 09:45 | P.PNCC ---
Subjective Subjective Remarks/Hospital Course: 67yF with history of COPD was originally admitted by the Hospitalist service for hypercapnea and COPD exacerbation. Per their admission note: The patient is a 67-year-old female with a known history of COPD, DM, HTN, HLD, Afib admitted with increasing shortness of breath, associated hypoxemia, hospitalized for same multiple times. Patient is with worsening shortness of breath, using accessory repiratory muscle in tripod position. ABG is reassuring , however due to increased labored breathing she is placed on bipap.The patient follow with Dr Sterling weems. Patient received nebs, solumedrol. Evaluated by pulm. Patient is transfered to ICU. Noted with elevated BP. Patient still with labored breathing dispite bipap use. Patient reports she smokes a pack of cigarettes a day for over 30 years, continues to smoke to the time of hospitalization. She was counselled extensively regarding smoking cessations , she expressed understanding, and will try to quit, however says is hard to quit. despite aggressive non-invasive ventilatory strategies, patient decompensated and was emergently intubated by Dr. Bloom (see separate procedural documentation) . patient is intubated and cannot provide any additional history. ROS unobtainable. the remainder of the history taken from prior medical record documentation. 02/03: Remains intubated sedated. Currently synchronous with the ventilator. However requiring Levophed to maintain map above 65 currently on 6 mcg. This could be sedation related or due to sepsis. Cultures are pending at this time 02/04: Continues to be intubated sedated moves all extremities. Requires Levophed to keep map above 65. Chest exam reveals improved bilateral wheezing. 02/05: Extubated yesterday initially tolerated well however overnight became more short of breath altered. Had ABG showed a pH of 7.19 PCO2 72. Placed on BiPAP with improvement in symptoms currently slightly lethargic appears more awake pH at 5 AM was 7.127 PCO2 has come down to 57. Continue BiPAP may require reintubation but appears stable on BiPAP at this time 02/06: Reintubated on 02/05 for worsening resp distress. 02/07: Sedated, orally intubated on mechanical ventilation. 02/08: Afebrile. T-max 99. Becomes extremely agitated on weaning. Failed CPAP trial [id number]/. Will start dexmedetomidine drip. Positive BM. Tolerating tube feeds at goal. Remains quite hyperglycemic. Adjusting insulin detemir today. 02/09: Afebrile. Extubated today. Dexamethasone has been discontinued. BiPAP at bedside if needed. Arousable and follows commands. Answers 1 voice question. Still retracting. 02/10: Afebrile. On intermittent BiPAP overnight. Arousable and follows commands. Intermittently retracts. Failed swallow evaluation. Failed to place NG or Keofeed yesterday. Remains on clevidipine drip. 02/11: Afebrile. Remains on intermittent BiPAP. Arousable and follows commands. Passed speech evaluation. Currently on pured diet. Able to take oral antihypertensives. Subjective 02/12: Afebrile. Intermittently on BiPAP. Resting comfortably bed. Appears much more comfortable. Objective Vital Signs / I&O: Vital Signs 02/11/18 12:00 02/11/18 12:07 02/11/18 15:30 Temperature 97.6 F Pulse Rate 116 H 113 H 120 H Respiratory Rate 28 H 28 H 38 H Blood Pressure 161/76 H 144/73 H Pulse Oximetry 100 100 02/11/18 15:45 02/11/18 16:00 02/11/18 16:15 Temperature 98.4 F Pulse Rate 121 H 120 H 117 H Respiratory Rate 48 H 46 H 35 H Blood Pressure 145/77 H 151/78 H 125/68 Pulse Oximetry 100 100 100 02/11/18 16:30 02/11/18 16:45 02/11/18 17:00 Temperature Pulse Rate 114 H 109 H 113 H Respiratory Rate 49 H 41 H 45 H Blood Pressure 131/80 148/80 H 162/97 H Pulse Oximetry 100 100 100 02/11/18 17:04 02/11/18 17:15 02/11/18 17:30 Temperature Pulse Rate 116 H 114 H 114 H Respiratory Rate 20 30 H 29 H Blood Pressure 141/68 H 152/67 H Pulse Oximetry 100 100 100 02/11/18 17:45 02/11/18 18:00 02/11/18 18:15 Temperature Pulse Rate 112 H 110 H 109 H Respiratory Rate 31 H 31 H 31 H Blood Pressure 151/72 H 142/63 H 161/70 H Pulse Oximetry 100 100 100 02/11/18 18:30 02/11/18 18:45 02/11/18 19:00 Temperature Pulse Rate 106 H 103 H 109 H Respiratory Rate 32 H 27 H 29 H Blood Pressure 144/57 H 144/67 H 156/72 H Pulse Oximetry 100 100 100 02/11/18 19:15 02/11/18 19:30 02/11/18 19:46 Temperature Pulse Rate 106 H 108 H 108 H Respiratory Rate 33 H 25 H 41 H Blood Pressure 153/69 H 158/79 H 136/92 H Pulse Oximetry 100 100 100 02/11/18 20:00 02/11/18 20:16 02/11/18 20:26 Temperature 98 F Pulse Rate 106 H 114 H 109 H Respiratory Rate 36 H 39 H 22 Blood Pressure 132/68 147/71 H Pulse Oximetry 100 100 100 02/11/18 20:30 02/11/18 20:45 02/11/18 21:00 Temperature Pulse Rate 110 H 117 H 119 H Respiratory Rate 41 H 37 H 42 H Blood Pressure 122/66 112/73 118/73 Pulse Oximetry 100 100 100 02/11/18 21:15 02/11/18 21:30 02/11/18 23:15 Temperature Pulse Rate 115 H 115 H 110 H Respiratory Rate 41 H 41 H 35 H Blood Pressure 159/73 H 135/59 L 149/72 H Pulse Oximetry 100 100 100 02/11/18 23:30 02/11/18 23:45 02/12/18 00:00 Temperature 98.9 F Pulse Rate 104 H 102 H 104 H Respiratory Rate 30 H 29 H 32 H Blood Pressure 146/72 H 142/66 H 143/72 H Pulse Oximetry 100 100 100 02/12/18 00:14 02/12/18 00:15 02/12/18 00:30 Temperature Pulse Rate 104 H 104 H 106 H Respiratory Rate 30 H 32 H 27 H Blood Pressure 146/69 H 138/60 Pulse Oximetry 100 100 100 02/12/18 00:45 02/12/18 01:00 02/12/18 01:15 Temperature Pulse Rate 106 H 104 H 104 H Respiratory Rate 30 H 32 H 32 H Blood Pressure 140/66 137/67 132/66 Pulse Oximetry 100 100 100 02/12/18 01:30 02/12/18 01:45 02/12/18 02:00 Temperature Pulse Rate 102 H 101 H 100 H Respiratory Rate 28 H 31 H 30 H Blood Pressure 137/64 122/62 118/60 Pulse Oximetry 100 100 100 02/12/18 02:15 02/12/18 02:30 02/12/18 02:45 Temperature Pulse Rate 99 H 98 H 99 H Respiratory Rate 30 H 30 H 28 H Blood Pressure 128/68 131/66 123/62 Pulse Oximetry 100 100 100 02/12/18 03:00 02/12/18 03:15 02/12/18 03:30 Temperature Pulse Rate 105 H 96 H 95 H Respiratory Rate 32 H 28 H 29 H Blood Pressure 124/68 122/63 137/65 Pulse Oximetry 100 100 100 02/12/18 03:45 02/12/18 04:00 02/12/18 04:05 Temperature Pulse Rate 94 H 93 H 94 H Respiratory Rate 29 H 29 H 27 H Blood Pressure 138/64 127/59 L Pulse Oximetry 100 100 100 02/12/18 04:15 02/12/18 04:30 02/12/18 04:45 Temperature 98.6 F Pulse Rate 95 H 94 H 96 H Respiratory Rate 30 H 31 H 29 H Blood Pressure 127/63 118/58 L 117/61 Pulse Oximetry 100 100 100 02/12/18 05:00 02/12/18 05:15 02/12/18 07:00 Temperature Pulse Rate 94 H 92 H 100 H Respiratory Rate 29 H 31 H 18 Blood Pressure 115/60 121/59 L Pulse Oximetry 100 100 02/12/18 07:41 Temperature Pulse Rate Respiratory Rate Blood Pressure Pulse Oximetry 100 Intake & Output 02/11/18 02/12/18 02/12/18 18:59 06:59 18:59 Intake Total 250 / 250 230 / 230 Output Total 1300 / 1300 400 / 400 Balance -1050 / -1050 -170 / -170 Weight 45.2 kg Intake: IV 200 / 200 200 / 200 Cleviprex Inj 25 mg In 50 ml @ 100 / 100 100 / 100 1 MG/HR 2 mls/hr IV.CONT TITRATE PRN Rx#:[id number] Maxipime Inj 2,000 MG In NS Inj 100 / 100 100 / 100 100 ML @ 200 mls/hr IV.SIG Q12H DULCE Rx#:[id number] Oral 50 / 50 30 / 30 Output: Urine 1300 / 1300 400 / 400 Other: # Incontinent Voids 1 # Urine Diapers 1 Date of Last Bowel Movement 02/09/18 02/09/18 # Bowel Movements 0 0 Result Diagrams: 02/12/18 05:35 02/12/18 05:35 Other Results: Microbiology 02/10/18 13:17 Blood - Peripheral Aerobic Blood Culture - Preliminary No growth in 1 day 02/10/18 13:17 Blood - Peripheral Anaerobic Blood Culture - Preliminary No growth in 1 day 02/10/18 11:33 Blood - Peripheral Aerobic Blood Culture - Preliminary No growth in 1 day 02/10/18 11:33 Blood - Peripheral Anaerobic Blood Culture - Preliminary No growth in 1 day 02/02/18 05:25 Blood - Peripheral Aerobic Blood Culture - Final No growth in 5 days 02/02/18 05:25 Blood - Peripheral Anaerobic Blood Culture - Final No growth in 5 days 02/02/18 05:20 Blood - Peripheral Aerobic Blood Culture - Final No growth in 5 days 02/02/18 05:20 Blood - Peripheral Anaerobic Blood Culture - Final No growth in 5 days 02/03/18 01:04 Sputum - Endotracheal Gram Stain - Final 02/03/18 01:04 Sputum - Endotracheal Sputum Culture - Final Rare growth normal respiratory palma 02/02/18 06:30 Nasal Wash Influenza Types A,B Antigen - Final Negative for FLU A and B antigen Infection due to influenza A or B cannot be ruled out since the antigen present in the sample may be below the detection limit of the test. Imaging: Chest X-Ray 02/02/18 00:00 CONCLUSION: 1. Minimal blunting of the costophrenic recesses consistent with possible tiny pleural effusions or pleural thickening. 2. No focal infiltrate or pulmonary vascular congestion. 3. Endotracheal tube in good position 2 cm above the vinicio. Chest X-Ray 02/02/18 04:33 CONCLUSION: The lungs are clear. Chest X-Ray 02/03/18 00:00 CONCLUSION: Lungs are clear. ET tube in good position. Chest X-Ray 02/05/18 15:39 CONCLUSION: 1. The ET tube appears to be in good position. No evidence of pneumothorax. 2. The lungs are hyper aerated and grossly clear. Head MRI 02/08/18 00:00 CONCLUSION: 1. No acute intracranial abnormality. 2. Acute pansinusitis. Abdomen X-Ray 02/09/18 00:00 CONCLUSION: Malposition of the Dobbhoff tube tip which appears to be located within the right lower lobe bronchiole. This should be removed and re-placed into the stomach. Chest X-Ray 02/09/18 06:00 CONCLUSION: No significant change. Lungs remain clear. Chest X-Ray 02/10/18 06:00 CONCLUSION: Trace right base atelectasis. Interim extubation and nasogastric tube removal Chest X-Ray 02/12/18 06:00 CONCLUSION: No acute cardiopulmonary process. Objective Remarks: GENERAL: This is a 67-year-old AA female currently on nasal cannula no acute distress SKIN: Warm and dry. No rash HEAD: Atraumatic. Normocephalic. EYES: Pupils equal and round. No scleral icterus. No injection or drainage. ENT: No nasal bleeding or discharge. Mucous membranes pink and moist. NECK: Trachea midline. No JVD. Left IJ CVL removed 02/10. No hematoma CARDIOVASCULAR: Tachycardic, RR. S1, S2. No S4. Without murmur RESPIRATORY: Essentially. Clear to auscultation. Breath sounds equal bilaterally. End expiratory wheezing. Intermittent retracting GASTROINTESTINAL: Abdomen soft, non-tender, nondistended. Hypoactive bowel sounds appreciated. MUSCULOSKELETAL: Extremities with no significant bilateral lower extremity edema. No obvious deformities. NEUROLOGICAL: Arousable and follows simple commands. Answer simple questions. Moves all 4 extremities spontaneously. Assessment and Plan - Assessment and Plan Plan: Neurologic/Psych Acute metabolic encephalopathy CO2 narcosis/Hypercarbic encephalopathy Peripheral neuropathy -Altered mental status secondary to CO2 narcosis Currently on gabapentin 300 mg twice daily/home medication -Resume vitamin B12 when indicated Negative MRI brain/EEG Respiratory: acute, severe COPD exacerbation acute hypercarbic and hypoxic respiratory failure - Extubated 02/04 initially tolerated well overnight developed hypercapnic respiratory failure. - Required reintubation for worsening resp satus despite BIPAP on 02/05 extubated again 02/09 - Scheduled albuterol/ipratropium aerosols every 4 hours and prn albuterol nebs. - IV methylprednisolone succinate 40 mg IV every 8 hours and inhaled budesonide 0.5/2 1 inhalation twice daily Patient is on furosemide/formoterol 160/4.5 2 puffs twice daily at home along with albuterol HFA and ipratropium inhaler - hob elevated at 30 degrees - wean fio2 for goal spo2 > 90%. Currently on nasal cannula 2 L -Followed by pulmonology Follow-up chest x-ray in a.m. 02/13 Cardiovascular: Essential hypertension History of atrial fibrillation currently normal sinus rhythm -Increase home medication lisinopril from 20 mg daily to twice daily. -Restart diltiazem 30 mg 4 times daily. On 120 mg daily at home. -As needed labetalol, hydralazine Nitropaste and clonidine -2D echocardiogram 03/02 revealed EF of 60%. Mild MR/TR. -Check digoxin level currently 1.3. Decreased 0.1 25 mg daily digoxin start recheck level 02/12 -81 mg daily. Aspirin will be resumed Renal/: - Strict I/Os - no indication for man at this time. FEN/GI: Acute protein calorie malnutrition- severe Hypernatremia Currently on pured diet. Speech evaluation for swallow. Resume today - ICU electrolyte protocol initiated. - AM cmp Heme/ID: Leukocytosis -Continue cefepime and levofloxacin - f/u culture data blood cultures 02/02 and sputum culture 02/03 no growth to date. Influenza a and B- Endocrine: Diabetes Patient is on scheduled insulin detemir 8 units twice daily. At home on 8 units twice daily. Holding insulin detemir status post extubation and if n.p.o. -- SSI with novulin R medium protocol every 6 hours. Check TSH i was 0.573 Prophylaxis: GI Prophylaxis Famotidine DVT Prophylaxis -- SCDs -Enoxaparin Lines: piv's Left IJ CVL placed 02/02. Removed 02/10 Level 2 follow-up. Stable from critical care medicine standpoint. Assign care to hospitalist in a.m. 02/13
--- NOTE | 2018-02-12 12:15 | P.PN ---
Subjective Interval history: Seems more comfortable and on O2 3 L. Used bipap last Nite. Wants to sit up in a chair. Physical Exam Vital signs: Vital Signs 02/11/18 15:30 02/11/18 15:45 02/11/18 16:00 Temperature 98.4 F Pulse Rate 120 H 121 H 120 H Respiratory Rate 38 H 48 H 46 H Blood Pressure 144/73 H 145/77 H 151/78 H Pulse Oximetry 100 100 100 02/11/18 16:15 02/11/18 16:30 02/11/18 16:45 Temperature Pulse Rate 117 H 114 H 109 H Respiratory Rate 35 H 49 H 41 H Blood Pressure 125/68 131/80 148/80 H Pulse Oximetry 100 100 100 02/11/18 17:00 02/11/18 17:04 02/11/18 17:15 Temperature Pulse Rate 113 H 116 H 114 H Respiratory Rate 45 H 20 30 H Blood Pressure 162/97 H 141/68 H Pulse Oximetry 100 100 100 02/11/18 17:30 02/11/18 17:45 02/11/18 18:00 Temperature Pulse Rate 114 H 112 H 110 H Respiratory Rate 29 H 31 H 31 H Blood Pressure 152/67 H 151/72 H 142/63 H Pulse Oximetry 100 100 100 02/11/18 18:15 02/11/18 18:30 02/11/18 18:45 Temperature Pulse Rate 109 H 106 H 103 H Respiratory Rate 31 H 32 H 27 H Blood Pressure 161/70 H 144/57 H 144/67 H Pulse Oximetry 100 100 100 02/11/18 19:00 02/11/18 19:15 02/11/18 19:30 Temperature Pulse Rate 109 H 106 H 108 H Respiratory Rate 29 H 33 H 25 H Blood Pressure 156/72 H 153/69 H 158/79 H Pulse Oximetry 100 100 100 02/11/18 19:46 02/11/18 20:00 02/11/18 20:16 Temperature 98 F Pulse Rate 108 H 106 H 114 H Respiratory Rate 41 H 36 H 39 H Blood Pressure 136/92 H 132/68 147/71 H Pulse Oximetry 100 100 100 02/11/18 20:26 02/11/18 20:30 02/11/18 20:45 Temperature Pulse Rate 109 H 110 H 117 H Respiratory Rate 22 41 H 37 H Blood Pressure 122/66 112/73 Pulse Oximetry 100 100 100 02/11/18 21:00 02/11/18 21:15 02/11/18 21:30 Temperature Pulse Rate 119 H 115 H 115 H Respiratory Rate 42 H 41 H 41 H Blood Pressure 118/73 159/73 H 135/59 L Pulse Oximetry 100 100 100 02/11/18 23:15 02/11/18 23:30 02/11/18 23:45 Temperature Pulse Rate 110 H 104 H 102 H Respiratory Rate 35 H 30 H 29 H Blood Pressure 149/72 H 146/72 H 142/66 H Pulse Oximetry 100 100 100 02/12/18 00:00 02/12/18 00:14 02/12/18 00:15 Temperature 98.9 F Pulse Rate 104 H 104 H 104 H Respiratory Rate 32 H 30 H 32 H Blood Pressure 143/72 H 146/69 H Pulse Oximetry 100 100 100 02/12/18 00:30 02/12/18 00:45 02/12/18 01:00 Temperature Pulse Rate 106 H 106 H 104 H Respiratory Rate 27 H 30 H 32 H Blood Pressure 138/60 140/66 137/67 Pulse Oximetry 100 100 100 02/12/18 01:15 02/12/18 01:30 02/12/18 01:45 Temperature Pulse Rate 104 H 102 H 101 H Respiratory Rate 32 H 28 H 31 H Blood Pressure 132/66 137/64 122/62 Pulse Oximetry 100 100 100 02/12/18 02:00 02/12/18 02:15 02/12/18 02:30 Temperature Pulse Rate 100 H 99 H 98 H Respiratory Rate 30 H 30 H 30 H Blood Pressure 118/60 128/68 131/66 Pulse Oximetry 100 100 100 02/12/18 02:45 02/12/18 03:00 02/12/18 03:15 Temperature Pulse Rate 99 H 105 H 96 H Respiratory Rate 28 H 32 H 28 H Blood Pressure 123/62 124/68 122/63 Pulse Oximetry 100 100 100 02/12/18 03:30 02/12/18 03:45 02/12/18 04:00 Temperature Pulse Rate 95 H 94 H 93 H Respiratory Rate 29 H 29 H 29 H Blood Pressure 137/65 138/64 127/59 L Pulse Oximetry 100 100 100 02/12/18 04:05 12/31/18 04:15 02/12/18 04:30 Temperature 98.6 F Pulse Rate 94 H 95 H 94 H Respiratory Rate 27 H 30 H 31 H Blood Pressure 127/63 118/58 L Pulse Oximetry 100 100 100 02/12/18 04:45 02/12/18 05:00 02/12/18 05:15 Temperature Pulse Rate 96 H 94 H 92 H Respiratory Rate 29 H 29 H 31 H Blood Pressure 117/61 115/60 121/59 L Pulse Oximetry 100 100 100 02/12/18 07:00 02/12/18 07:41 02/12/18 08:00 Temperature 98.0 F Pulse Rate 100 H 105 H Respiratory Rate 18 34 H Blood Pressure 159/69 H Pulse Oximetry 100 100 02/12/18 09:00 02/12/18 10:43 02/12/18 12:00 Temperature 99.0 F Pulse Rate 105 H 100 H 105 H Respiratory Rate 18 34 H Blood Pressure 163/78 H Pulse Oximetry 100 Intake & Output 02/11/18 02/12/18 02/12/18 18:59 06:59 18:59 Intake Total 250 / 250 230 / 230 Output Total 1300 / 1300 400 / 400 Balance -1050 / -1050 -170 / -170 Weight 45.2 kg Intake: IV 200 / 200 200 / 200 Cleviprex Inj 25 mg In 50 ml @ 100 / 100 100 / 100 1 MG/HR 2 mls/hr IV.CONT TITRATE PRN Rx#:[id number] Maxipime Inj 2,000 MG In NS Inj 100 / 100 100 / 100 100 ML @ 200 mls/hr IV.SIG Q12H DULCE Rx#:[id number] Oral 50 / 50 30 / 30 Output: Urine 1300 / 1300 400 / 400 Other: # Incontinent Voids 1 # Urine Diapers 1 Date of Last Bowel Movement 02/09/18 02/09/18 02/12/18 # Bowel Movements 0 0 Narrative: GENERAL: Mid aged A/A awake and alert. HEENT: PERRL Eyes without icterus. mmm. NECK: Without adenopathy or thyroid enlargement. trachea midline. CHEST: Scattered wheeze bilaterally, decreased breath sounds. CARDIAC: normal rate, regular rhythm. sinus. ABDOMEN: soft, nontender, nondistended. EXTREMITIES: No clubbing, cyanosis, or edema. NEURO: awake moves all. Reflexes 1 +. - Urinary Catheter Management Straight Cath placed during this visit: no Results - Labs CBC & Chem 7: 02/12/18 05:35 02/12/18 05:35 Laboratory Results - last 24 hr 02/11/18 02/11/18 02/11/18 12:32 17:32 23:33 WBC RBC Hgb Hct MCV MCH MCHC RDW Plt Count MPV Prelim Diff (Auto) Neut % (Auto) Lymph % (Auto) Morton % (Auto) Eos % (Auto) Baso % (Auto) Neut # (Auto) Lymph # (Auto) Morton # (Auto) Eos # (Auto) Baso # (Auto) WBC Differential Seg Neuts % (Manual) Band Neuts % (Manual) Lymphocytes % (Manual) Monocytes % (Manual) Metamyelocytes % (Man) Abs Neuts (Manual) Differential Comment Platelet Estimate Platelet Morphology Sodium Potassium Chloride Carbon Dioxide Anion Gap BUN Creatinine Estimated GFR POC Glucose 159 H 159 H 147 H Random Glucose Calcium Phosphorus Magnesium Total Bilirubin AST ALT Alkaline Phosphatase Total Protein Albumin Digoxin 02/12/18 02/12/18 02/12/18 05:02 05:35 05:35 WBC 17.0 H RBC 3.96 L Hgb 11.0 L Hct 34.2 L MCV 86.3 MCH 27.7 MCHC 32.1 RDW 18.1 H Plt Count 163 MPV 10.5 Prelim Diff (Auto) Slide review pending Neut % (Auto) 93.3 H Lymph % (Auto) 3.6 L Morton % (Auto) 3.0 Eos % (Auto) 0.0 Baso % (Auto) 0.1 Neut # (Auto) 15.8 H Lymph # (Auto) 0.6 L Morton # (Auto) 0.5 Eos # (Auto) 0.0 Baso # (Auto) 0.0 WBC Differential Manual diff final Seg Neuts % (Manual) 89 H Band Neuts % (Manual) 3 Lymphocytes % (Manual) 3 L Monocytes % (Manual) 1 Metamyelocytes % (Man) 4 H Abs Neuts (Manual) 16.3 H Differential Comment . Platelet Estimate Normal Platelet Morphology Normal Sodium 139 Potassium 4.3 Chloride 104 Carbon Dioxide 27.6 Anion Gap 7 BUN 28 H Creatinine 0.71 Estimated GFR Greater than 89 POC Glucose 174 H Random Glucose 180 H Calcium 9.0 D Phosphorus 4.3 D Magnesium 2.6 H Total Bilirubin 0.3 AST 28 ALT 82 H Alkaline Phosphatase 73 Total Protein 6.0 L Albumin 2.4 L Digoxin 0.8 02/12/18 11:28 WBC RBC Hgb Hct MCV MCH MCHC RDW Plt Count MPV Prelim Diff (Auto) Neut % (Auto) Lymph % (Auto) Morton % (Auto) Eos % (Auto) Baso % (Auto) Neut # (Auto) Lymph # (Auto) Morton # (Auto) Eos # (Auto) Baso # (Auto) WBC Differential Seg Neuts % (Manual) Band Neuts % (Manual) Lymphocytes % (Manual) Monocytes % (Manual) Metamyelocytes % (Man) Abs Neuts (Manual) Differential Comment Platelet Estimate Platelet Morphology Sodium Potassium Chloride Carbon Dioxide Anion Gap BUN Creatinine Estimated GFR POC Glucose 185 H Random Glucose Calcium Phosphorus Magnesium Total Bilirubin AST ALT Alkaline Phosphatase Total Protein Albumin Digoxin Microbiology 02/10/18 13:17 Blood - Peripheral Aerobic Blood Culture - Preliminary No growth in 2 days 02/10/18 13:17 Blood - Peripheral Anaerobic Blood Culture - Preliminary No growth in 2 days 02/10/18 11:33 Blood - Peripheral Aerobic Blood Culture - Preliminary No growth in 2 days 02/10/18 11:33 Blood - Peripheral Anaerobic Blood Culture - Preliminary No growth in 2 days - Imaging Impressions Chest X-Ray 02/12/18 06:00 CONCLUSION: No acute cardiopulmonary process. Assessment and Plan - Assessment (1) Respiratory failure requiring intubation Code(s): J96.90 - Respiratory failure, unspecified, unspecified whether with hypoxia or hypercapnia Status: Acute (2) Atrial fibrillation Code(s): I48.91 - Unspecified atrial fibrillation Status: Acute (3) HTN (hypertension) Code(s): I10 - Essential (primary) hypertension Status: Acute (4) Hyperlipidemia Code(s): E78.5 - Hyperlipidemia, unspecified Status: Acute (5) Diabetes Code(s): E11.9 - Type 2 diabetes mellitus without complications Status: Acute (6) Emphysema lung Code(s): J43.9 - Emphysema, unspecified Status: Acute (7) COPD (chronic obstructive pulmonary disease) Code(s): J44.9 - Chronic obstructive pulmonary disease, unspecified Status: Acute - Plan 1. BiPAP 10/5 CM , FIO2 35 % at HS and PRN 2. Nebs q6h duoneb 3. O2 N/C 3 L daytime 4. cont Solumedrol 40 MG IV Q12H 5. Diet soft low salt 6. CBC,CXR in am 7. Up in chair as tolerated. 8. Continue antibiotics , Levaquin IV (7) COPD (chronic obstructive pulmonary disease) Qualifiers: COPD type: COPD with acute exacerbation Qualified Code(s): J44.1 - Chronic obstructive pulmonary disease with (acute) exacerbation
[2018-02-12] MEDS ORDERED: Lisinopril 20 MG Tablet PO ONE (18:30)
[2018-02-12] MEDS: Enoxaparin Inj 40 MG/0.4 ML Syringe SQ SCH (21:08)
[2018-02-13] MEDS: Insulin NovoLIN Regular Correctional Sugar Inj SQ SCH ×4 (00:50→20:21)
[2018-02-13] MEDS: Artificial Tears Opth Drops 15 ML Bottle EACH EYE SCH ×3 (00:51→20:21)
[2018-02-13] MEDS: Oral Hygiene Kit OROPHARYNG SCH ×3 (04:43→17:51)
--- NOTE | 2018-02-13 05:04 | XR ---
EXAM DATE: 02/13/2018 4:26 AM EST AGE/SEX: 67 years / Female INDICATIONS: Shortness of breath, possible pulmonary disease. CLINICAL DATA: This is the patient's subsequent encounter. Patient reports that signs and symptoms h ave been present for 2 weeks and indicates a pain score of 0/10. MEDICAL/SURGICAL HISTORY: Chronic obstructive pulmonary disease. Emphysema. Diabetes. A-fib. Hypertension. Tubal ligation. COMPARISON: C, CHEST 1V SINGLE AP, 02/12/2018. [facility], CT CHEST W/O CONTRAST, 01/01/2018. . FINDINGS: The heart size is normal. The aorta is calcified. The lungs are hyperinflated. No focal consolidation is seen. No effusion is seen. CONCLUSION: Hyperinflated lungs consistent with COPD. Electronically signed by: Wolf Acevedo MD Board Certified Radiologist 02/13/2018 5:03 AM EST
[2018-02-13 08:25] LABS: Baso % (Auto) 0.2 % (0.0-2.0); Hematocrit 33.3 % (35.0-46.0); Hemoglobin 10.4 gm/dL (11.6-15.3); Lymph # (Auto) 0.4 th/mm3 (1.0-4.8); Lymph % (Auto) 2.5 % (9.0-44.0); Mean Corpuscular HGB Conc 31.2 % (32.0-36.0); Mean Corpuscular Hemoglobin 27.5 pg (27.0-34.0); Mean Corpuscular Volume 88.2 fL (80.0-100.0); Mean Platelet Volume 10.2 fL (7.0-11.0); Mono # (Auto) 1.1 th/mm3 (0.0-0.9); Mono % (Auto) 6.5 % (0.0-8.0); Neut % (Auto) 90.8 % (16.0-70.0); Platelet Count 165 th/mm3 (150-450); Red Blood Count 3.77 mil/mm3 (4.00-5.30); Red Cell Distribution Width 17.9 % (11.6-17.2); White Blood Count 17.6 th/mm3 (4.0-11.0)
[2018-02-13 08:45] LABS: Anion Gap 6 meq/L (5-15); Blood Urea Nitrogen 26 mg/dL (7-18); Calcium 8.9 mg/dL (8.5-10.1); Carbon Dioxide 27.6 meq/L (21.0-32.0); Chloride 105 meq/L (98-107); Glomerular Filtration Rate Greater Than 89 mL/min (>89); Glucose,Random 103 mg/dL (74-106); Magnesium 2.3 mg/dL (1.5-2.5); Potassium 4.2 meq/L (3.5-5.1); Sodium 139 meq/L (136-145)
[2018-02-13 09:02] LABS: Digoxin 0.7 ng/mL (0.8-2.0)
[2018-02-13 09:14] LABS: Platelet Estimate Normal (Normal); Platelet Morphology Normal (Normal)
[2018-02-13] MEDS: Gabapentin 300 MG Capsule PO SCH ×2 (09:20→20:56)
[2018-02-13] MEDS: MethylPREDNISolone Sod Succinate Inj 40 MG/ML Vial IV.PUSH SCH (09:20)
[2018-02-13] MEDS: Lisinopril 20 MG Tablet PO SCH ×2 (09:20→20:56)
[2018-02-13] MEDS: Insulin Detemir Inj 1,000 UNIT/10 ML Vial SQ SCH ×2 (09:21→20:57)
[2018-02-13] MEDS: Chlorhexidine 0.12% Oral Kit 15 ML UDC OROPHARYNG SCH ×2 (09:21→21:01)
[2018-02-13] MEDS: dilTIAZem 30 MG Tablet PO SCH ×4 (09:21→20:55)
[2018-02-13] MEDS: Famotidine 20 MG Tablet PO SCH ×2 (09:21→20:56)
[2018-02-13] MEDS: Senna/Docusate Sodium 8.6/50 MG Tablet PO SCH ×2 (09:21→21:01)
[2018-02-13] MEDS: Digoxin 125 MCG Tablet PO SCH (09:21)
--- NOTE | 2018-02-13 13:58 | P.PNIM ---
Subjective Interval history: Assumed care 02/13/18 patient reported to have fallen early this morning.did not hit her head. She says she was dizzy and lightheaded at the time when she stood,and still feels light headed when she attempts to stand. She feels her breathing is improving somewhat, but still winded with activity. Physical Exam Vital signs: Last Vital Signs Temp 98.2 F 02/13/18 04:00 Pulse 82 02/13/18 11:47 Resp 16 02/13/18 11:47 BP 182/89 H 02/13/18 07:21 Pulse Ox 99 02/13/18 07:43 Intake & Output 02/11/18 02/12/18 02/13/18 02/14/18 06:59 06:59 06:59 06:59 Intake Total 2919.250 / 2919.250 480 / 480 930 / 930 Output Total 3100 / 3100 1700 / 1700 Balance -180.750 / -180.750 -1220 / -1220 930 / 930 Weight 46.6 kg 45.2 kg Narrative: GENERAL: middle aged woman seated on chair, appears thin, not in distress. HEENT:not pale,anicteric, oral mucous membranes appear dry. CARDIOVASCULAR: Regular rate and rhythm without murmurs, gallops, or rubs. RESPIRATORY: diminished air entry bilaterally, scattered wheezes. No rales. GASTROINTESTINAL: Abdomen soft, non-tender, nondistended. Normal active bowel sounds MUSCULOSKELETAL: Extremities without clubbing, cyanosis, or edema. NEURO: Alert & Oriented x4 to person, place, time, situation. Moves all ext x4 Urinary Catheter Management Straight: Cath placed during this visit: no Results Labs CBC & Chem 7: 02/14/18 05:09 02/13/18 07:52 Labs: Microbiology 02/10/18 13:17 Blood - Peripheral Aerobic Blood Culture - Preliminary No growth in 3 days 02/10/18 13:17 Blood - Peripheral Anaerobic Blood Culture - Preliminary No growth in 3 days 02/10/18 11:33 Blood - Peripheral Aerobic Blood Culture - Preliminary No growth in 3 days 02/10/18 11:33 Blood - Peripheral Anaerobic Blood Culture - Preliminary No growth in 3 days Imaging Imaging: Impressions Chest X-Ray 02/13/18 06:00 CONCLUSION: Hyperinflated lungs consistent with COPD. Assessment and Plan (1) Respiratory failure requiring intubation: Code(s): J96.90 - Respiratory failure, unspecified, unspecified whether with hypoxia or hypercapnia Status: Acute (2) Atrial fibrillation: Code(s): I48.91 - Unspecified atrial fibrillation Status: Acute (3) HTN (hypertension): Code(s): I10 - Essential (primary) hypertension Status: Acute (4) Hyperlipidemia: Code(s): E78.5 - Hyperlipidemia, unspecified Status: Acute (5) Diabetes: Code(s): E11.9 - Type 2 diabetes mellitus without complications Status: Acute (6) Emphysema lung: Code(s): J43.9 - Emphysema, unspecified Status: Acute (7) COPD (chronic obstructive pulmonary disease): Code(s): J44.9 - Chronic obstructive pulmonary disease, unspecified Status: Acute Plan 02/13/18Dizzy/Lightheaded on standing-check orthostatic vitals Acute metabolic encephalopathy due to CO2 narcosis--now resolved. Negative MRI brain/EEG Acute, severe COPD exacerbation Acute hypercarbic and hypoxic respiratory failure - Extubated 02/04 initially tolerated well overnight developed hypercapnic respiratory failure. - Required reintubation for worsening resp status despite BIPAP on 02/05 extubated again 02/09 - Scheduled albuterol/ipratropium aerosols every 4 hours and prn albuterol nebs. - IV methylprednisolone succinate 40 mg IV every 8 hours and inhaled budesonide 0.5/2 1 inhalation twice daily leucocytosis persists likely secondary to steroids. -Continue cefepime and levofloxacin. Patient is on Budesomide/formoterol 160/4.5 2 puffs twice daily at home along with albuterol HFA and ipratropium inhaler - hob elevated at 30 degrees - wean fio2 for goal spo2 > 90%. Currently on nasal cannula 2 L 02/13/18-CXR with no consolidation. continue above care. Essential hypertension - home lisinopril was increased from 20 mg daily to twice daily. If BP remains uncontrolled will add schedule PO Hydralazine. -As needed labetalol, hydralazine Nitropaste and clonidine History of atrial fibrillation currently normal sinus rhythm -2D echocardiogram 03/02 revealed EF of 60%. Mild MR/TR. -Digoxin level currently 1.3. Decreased 0.1 25 mg daily digoxin start 02/10 recheck level 02/12 -Diltiazem 30 mg 4 times daily. On 120 mg daily at home. - Aspirin 81 mg daily DM Patient is on scheduled insulin detemir 8 units twice daily which is her usual home dose. -- SSI with novulin R medium protocol every 6 hours. Check TSH i was 0.573 Peripheral neuropathy Currently on gabapentin 300 mg twice daily/home medication -Resume vitamin B12 when indicated Acute protein calorie malnutrition- severe Hypernatremia Currently on pured diet. 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
--- NOTE | 2018-02-13 14:56 | P.PN ---
Subjective Interval history: She is up in a Chair. off O2 sats 95. Able to walk in room. Physical Exam Vital signs: Vital Signs 02/12/18 15:00 02/12/18 16:00 02/12/18 19:15 Temperature 98.6 F Pulse Rate 107 H 106 H 94 H Respiratory Rate 20 36 H 18 Blood Pressure 149/100 H Pulse Oximetry 100 100 02/12/18 19:42 02/12/18 20:00 02/12/18 21:00 Temperature 99.6 F Pulse Rate 91 H 100 H 92 H Respiratory Rate 16 Blood Pressure 174/88 H Pulse Oximetry 96 02/12/18 22:00 02/12/18 23:00 02/12/18 23:09 Temperature Pulse Rate 90 100 H 100 H Respiratory Rate 22 Blood Pressure Pulse Oximetry 02/13/18 00:00 02/13/18 01:00 02/13/18 02:00 Temperature 98.9 F Pulse Rate 94 H 90 87 Respiratory Rate 16 Blood Pressure 151/82 H Pulse Oximetry 98 02/13/18 03:00 02/13/18 03:15 02/13/18 04:00 Temperature 98.2 F Pulse Rate 101 H 102 H 90 Respiratory Rate 22 18 Blood Pressure 154/76 H Pulse Oximetry 99 02/13/18 05:00 02/13/18 06:00 02/13/18 07:21 Temperature Pulse Rate 84 98 H 101 H Respiratory Rate 18 Blood Pressure 182/89 H Pulse Oximetry 95 02/13/18 07:43 02/13/18 11:47 Temperature Pulse Rate 87 82 Respiratory Rate 16 16 Blood Pressure Pulse Oximetry 99 Intake & Output 02/12/18 02/13/18 02/13/18 18:59 06:59 18:59 Intake Total 440 / 440 490 / 490 Balance 440 / 440 490 / 490 Intake: IV 160 / 160 250 / 250 Cleviprex Inj 25 mg In 50 ml @ 60 / 60 1 MG/HR 2 mls/hr IV.CONT TITRATE PRN Rx#:[id number] Maxipime Inj 2,000 MG In NS Inj 100 / 100 100 / 100 100 ML @ 200 mls/hr IV.SIG Q12H DULCE Rx#:[id number] Levaquin 750 mg Premix Inj 150 150 / 150 ML @ 100 mls/hr IV.SIG Q48H DULCE Rx#:[id number] Oral 280 / 280 240 / 240 Other: # Voids 3 # Urine Diapers 4 Date of Last Bowel Movement 02/12/18 # Bowel Movements 3 1 Narrative: GENERAL: middle aged woman , not in distress. HEENT:not pale,anicteric,throat clear. CARDIOVASCULAR: Regular rate and rhythm without murmurs, gallops, or rubs. RESPIRATORY: diminished air entry bilaterally, scattered wheezes. No rales. GASTROINTESTINAL: Abdomen soft, non-tender, nondistended. Normal active bowel sounds MUSCULOSKELETAL: Extremities without clubbing, cyanosis, or edema. NEURO: Alert & Oriented x4 to person, place, time, situation. Moves all ext x4 - Urinary Catheter Management Straight Cath placed during this visit: no Results - Labs CBC & Chem 7: 02/13/18 07:52 02/13/18 07:52 Laboratory Results - last 24 hr 02/12/18 02/12/18 02/12/18 17:05 20:58 23:51 WBC RBC Hgb Hct MCV MCH MCHC RDW Plt Count MPV Prelim Diff (Auto) Neut % (Auto) Lymph % (Auto) [place] % (Auto) Eos % (Auto) Baso % (Auto) Neut # (Auto) Lymph # (Auto) [place] # (Auto) Eos # (Auto) Baso # (Auto) WBC Differential Diff Scan Differential Comment Platelet Estimate Platelet Morphology Sodium Potassium Chloride Carbon Dioxide Anion Gap BUN Creatinine Estimated GFR POC Glucose 155 H 122 H 166 H Random Glucose Calcium Phosphorus Magnesium Digoxin 02/13/18 02/13/18 02/13/18 05:33 07:52 07:52 WBC 17.6 H RBC 3.77 L Hgb 10.4 L Hct 33.3 L MCV 88.2 MCH 27.5 MCHC 31.2 L RDW 17.9 H Plt Count 165 MPV 10.2 Prelim Diff (Auto) Slide review pending Neut % (Auto) 90.8 H Lymph % (Auto) 2.[address] [place] % (Auto) 6.5 Eos % (Auto) 0.0 Baso % (Auto) 0.2 Neut # (Auto) 16.0 H Lymph # (Auto) 0.[address] [place] # (Auto) 1.1 H Eos # (Auto) 0.0 Baso # (Auto) 0.0 WBC Differential . Diff Scan Auto diff confirmed Differential Comment . Platelet Estimate Normal Platelet Morphology Normal Sodium 139 Potassium 4.2 Chloride 105 Carbon Dioxide 27.6 Anion Gap 6 BUN 26 H Creatinine 0.74 Estimated GFR Greater than 89 POC Glucose 156 H Random Glucose 103 Calcium 8.9 Phosphorus 3.0 D Magnesium 2.3 Digoxin 0.7 L 02/13/18 02/13/18 09:17 13:16 WBC RBC Hgb Hct MCV MCH MCHC RDW Plt Count MPV Prelim Diff (Auto) Neut % (Auto) Lymph % (Auto) [place] % (Auto) Eos % (Auto) Baso % (Auto) Neut # (Auto) Lymph # (Auto) [place] # (Auto) Eos # (Auto) Baso # (Auto) WBC Differential Diff Scan Differential Comment Platelet Estimate Platelet Morphology Sodium Potassium Chloride Carbon Dioxide Anion Gap BUN Creatinine Estimated GFR POC Glucose 89 155 H Random Glucose Calcium Phosphorus Magnesium Digoxin Microbiology 02/10/18 13:17 Blood - Peripheral Aerobic Blood Culture - Preliminary No growth in 3 days 02/10/18 13:17 Blood - Peripheral Anaerobic Blood Culture - Preliminary No growth in 3 days 02/10/18 11:33 Blood - Peripheral Aerobic Blood Culture - Preliminary No growth in 3 days 02/10/18 11:33 Blood - Peripheral Anaerobic Blood Culture - Preliminary No growth in 3 days - Imaging Impressions Chest X-Ray 02/13/18 06:00 CONCLUSION: Hyperinflated lungs consistent with COPD. Assessment and Plan - Assessment (1) Respiratory failure requiring intubation Code(s): J96.90 - Respiratory failure, unspecified, unspecified whether with hypoxia or hypercapnia Status: Acute (2) Atrial fibrillation Code(s): I48.91 - Unspecified atrial fibrillation Status: Acute (3) HTN (hypertension) Code(s): I10 - Essential (primary) hypertension Status: Acute (4) Hyperlipidemia Code(s): E78.5 - Hyperlipidemia, unspecified Status: Acute (5) Diabetes Code(s): E11.9 - Type 2 diabetes mellitus without complications Status: Acute (6) Emphysema lung Code(s): J43.9 - Emphysema, unspecified Status: Acute (7) COPD (chronic obstructive pulmonary disease) Code(s): J44.9 - Chronic obstructive pulmonary disease, unspecified Status: Acute - Plan 1. 2 L O2 at HS 2. Nebs q6h duoneb 3. O2 N/C 2 L prn.daytime 4. D/C Solumedrol 5. Diet soft low salt 6. Add prednisone 30 mg daily 7. Up in chair as tolerated. 8. Continue antibiotics and switch to PO (7) COPD (chronic obstructive pulmonary disease) Qualifiers: COPD type: COPD with acute exacerbation Qualified Code(s): J44.1 - Chronic obstructive pulmonary disease with (acute) exacerbation
[2018-02-13] MEDS: Enoxaparin Inj 40 MG/0.4 ML Syringe SQ SCH (20:55)
[2018-02-13] MEDS: predniSONE 20 MG Tablet PO SCH (20:56)
[2018-02-14] MEDS: Artificial Tears Opth Drops 15 ML Bottle EACH EYE SCH ×3 (00:01→17:12)
[2018-02-14] MEDS: Oral Hygiene Kit OROPHARYNG SCH ×4 (04:10→16:31)
[2018-02-14] MEDS: Insulin NovoLIN Regular Correctional Sugar Inj SQ SCH ×4 (05:41→17:07)
[2018-02-14 05:48] LABS: Baso % (Auto) 0.2 % (0.0-2.0); Hematocrit 29.2 % (35.0-46.0); Hemoglobin 9.3 gm/dL (11.6-15.3); Lymph # (Auto) 0.5 th/mm3 (1.0-4.8); Lymph % (Auto) 3.5 % (9.0-44.0); Mean Corpuscular HGB Conc 31.8 % (32.0-36.0); Mean Corpuscular Hemoglobin 27.9 pg (27.0-34.0); Mean Corpuscular Volume 87.7 fL (80.0-100.0); Mono # (Auto) 1.2 th/mm3 (0.0-0.9); Neut # (Auto) 12.9 th/mm3 (1.8-7.7); Neut % (Auto) 88.3 % (16.0-70.0); Platelet Count 150 th/mm3 (150-450); Red Blood Count 3.33 mil/mm3 (4.00-5.30); Red Cell Distribution Width 17.8 % (11.6-17.2); White Blood Count 14.5 th/mm3 (4.0-11.0)
[2018-02-14] MEDS: levoFLOXacin 250 MG Tablet PO SCH (08:36)
[2018-02-14] MEDS: Insulin Detemir Inj 1,000 UNIT/10 ML Vial SQ SCH ×2 (08:37→21:26)
[2018-02-14] MEDS: Famotidine 20 MG Tablet PO SCH ×2 (08:37→21:26)
[2018-02-14] MEDS: dilTIAZem 30 MG Tablet PO SCH ×4 (08:37→21:25)
[2018-02-14] MEDS: predniSONE 20 MG Tablet PO SCH (08:37)
[2018-02-14] MEDS: Digoxin 125 MCG Tablet PO SCH (08:37)
[2018-02-14] MEDS: Gabapentin 300 MG Capsule PO SCH ×2 (08:37→21:25)
[2018-02-14] MEDS: Chlorhexidine 0.12% Oral Kit 15 ML UDC OROPHARYNG SCH ×2 (08:37→21:28)
[2018-02-14] MEDS: Lisinopril 20 MG Tablet PO SCH ×2 (08:37→21:25)
[2018-02-14] MEDS: Senna/Docusate Sodium 8.6/50 MG Tablet PO SCH ×2 (08:38→21:26)
[2018-02-14] MEDS: Budesonide-Formoterol 160/4.5 MCG 6 GM Inhaler INH SCH ×2 (10:26→21:27)
--- NOTE | 2018-02-14 10:34 | P.PNIM ---
Subjective Interval history: patient reports some improvement in her breathing. Physical Exam Vital signs: Last Vital Signs Temp 99.2 F 02/14/18 08:00 Pulse 101 H 02/14/18 08:00 Resp 16 02/14/18 08:00 BP 128/60 02/14/18 08:00 Pulse Ox 95 02/14/18 08:00 Intake & Output 02/12/18 02/13/18 02/14/18 02/15/18 06:59 06:59 06:59 06:59 Intake Total 480 / 480 930 / 930 1680 / 1680 Output Total 1700 / 1700 1260 / 1260 Balance -1220 / -1220 930 / 930 420 / 420 Weight 45.2 kg 45.1 kg Narrative: GENERAL: middle aged woman seated on chair, appears thin, not in distress. HEENT:not pale,anicteric, oral mucous membranes appear dry. CARDIOVASCULAR: Regular rate and rhythm without murmurs, gallops, or rubs. RESPIRATORY: equal but diminished air entry bilaterally, no wheezes. No rales. GASTROINTESTINAL: Abdomen soft, non-tender, nondistended. Normal active bowel sounds MUSCULOSKELETAL: Extremities without clubbing, cyanosis, or edema. NEURO: Alert & Oriented x4 to person, place, time, situation. Moves all ext x4 Urinary Catheter Management Straight: Cath placed during this visit: no Results Labs CBC & Chem 7: 02/14/18 05:09 02/13/18 07:52 Labs: Microbiology 02/10/18 13:17 Blood - Peripheral Aerobic Blood Culture - Preliminary No growth in 3 days 02/10/18 13:17 Blood - Peripheral Anaerobic Blood Culture - Preliminary No growth in 3 days 02/10/18 11:33 Blood - Peripheral Aerobic Blood Culture - Preliminary No growth in 3 days 02/10/18 11:33 Blood - Peripheral Anaerobic Blood Culture - Preliminary No growth in 3 days Assessment and Plan (1) Respiratory failure requiring intubation: Code(s): J96.90 - Respiratory failure, unspecified, unspecified whether with hypoxia or hypercapnia Status: Acute (2) Atrial fibrillation: Code(s): I48.91 - Unspecified atrial fibrillation Status: Acute (3) HTN (hypertension): Code(s): I10 - Essential (primary) hypertension Status: Acute (4) Hyperlipidemia: Code(s): E78.5 - Hyperlipidemia, unspecified Status: Acute (5) Diabetes: Code(s): E11.9 - Type 2 diabetes mellitus without complications Status: Acute (6) Emphysema lung: Code(s): J43.9 - Emphysema, unspecified Status: Acute (7) COPD (chronic obstructive pulmonary disease): Code(s): J44.9 - Chronic obstructive pulmonary disease, unspecified Status: Acute Plan 67-year-old female with a known history of COPD, DM, HTN, HLD, Afib admitted with increasing shortness of breath, associated hypoxemia, hospitalized for same multiple times. Patient was transferred ICU on 02/02 for worsening shortness of breath and hypercarbic respiratory failure , was initially on non invasive management but failed requiring emergent endotracheal intubation and ventilatory support. She was extubated on 02/04 but had to be re-intubated on , subsequently successfully extubated on 02/09, transitioned to BIPAP,and now to nasal canula . She was transferred to step down on 02/12. She has continued to do well. Acute metabolic encephalopathy due to CO2 narcosis--now resolved. Negative MRI brain/EEG Acute, severe COPD exacerbation Acute hypercarbic and hypoxic respiratory failure - Extubated 02/04 initially tolerated well overnight developed hypercapnic respiratory failure. - Required reintubation for worsening resp status despite BIPAP on 02/05 extubated again 02/09 - Scheduled albuterol/ipratropium aerosols every 4 hours and prn albuterol nebs. - IV methylprednisolone succinate was reduced 40 mg IV every 12 hours and inhaled budesonide 0.5/2 1 inhalation twice daily leucocytosis persists likely secondary to steroids--now trending down 14.5 this morning. -was on cefepime and levofloxacin, but now transitioned to oral Levofloxacin. Patient is on Budesomide/formoterol 160/4.5 2 puffs twice daily at home along with albuterol HFA and ipratropium inhaler - hob elevated at 30 degrees - wean fio2 for goal spo2 > 90%. Currently on nasal cannula 2 L, taper off as tolerated. Patient is not on oxygen at home. : 02/13/18-CXR with no consolidation. continue above care. Essential hypertension - home lisinopril was increased from 20 mg daily to twice daily. BP trends improved. Can consider adding schedule PO Hydralazine if uncontrolled. -As needed labetalol, hydralazine Nitropaste and clonidine History of atrial fibrillation currently normal sinus rhythm -2D echocardiogram 03/02 revealed EF of 60%. Mild MR/TR. -Digoxin level currently 1.3. Decreased 0.1 25 mg daily digoxin start 02/10 recheck level 02/12 -Diltiazem 30 mg 4 times daily. On 120 mg daily at home. - Aspirin 81 mg daily DM Patient is on scheduled insulin detemir 8 units twice daily which is her usual home dose.Had hypoglycemic episodes early this morning, glucose now acceptable limits. -- SSI with novulin R medium protocol every 6 hours.\ TSH i was 0.573 Peripheral neuropathy Currently on gabapentin 300 mg twice daily/home medication -Resume vitamin B12 when indicated Acute protein calorie malnutrition- severe Hypernatremia Currently on pured diet. 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
--- NOTE | 2018-02-14 18:23 | P.PN ---
Subjective Interval history: Sitting up and on o2 2 L. She is feeling better. No wheezing. CXR is clear. Physical Exam Vital signs: Vital Signs 02/13/18 19:00 02/13/18 20:00 02/13/18 20:29 Temperature 98.3 F Pulse Rate 89 82 83 Respiratory Rate 18 18 Blood Pressure 165/76 H Pulse Oximetry 98 99 02/13/18 21:00 02/13/18 22:00 02/13/18 23:00 Temperature Pulse Rate 92 H 84 73 Respiratory Rate Blood Pressure Pulse Oximetry 02/13/18 23:29 02/13/18 23:38 02/14/18 00:00 Temperature Pulse Rate 76 71 92 H Respiratory Rate 18 16 Blood Pressure 154/60 H Pulse Oximetry 100 02/14/18 01:00 02/14/18 02:00 02/14/18 02:56 Temperature Pulse Rate 88 88 81 Respiratory Rate 18 Blood Pressure 179/79 H Pulse Oximetry 99 02/14/18 03:00 02/14/18 03:27 02/14/18 03:39 Temperature Pulse Rate 78 80 Respiratory Rate 16 Blood Pressure 132/64 Pulse Oximetry 02/14/18 04:00 02/14/18 05:00 02/14/18 06:00 Temperature Pulse Rate 80 76 80 Respiratory Rate Blood Pressure Pulse Oximetry 02/14/18 07:00 02/14/18 07:26 02/14/18 08:00 Temperature 99.2 F Pulse Rate 98 H 83 98 H Respiratory Rate 14 16 Blood Pressure 128/60 Pulse Oximetry 99 95 02/14/18 09:00 02/14/18 10:00 02/14/18 10:21 Temperature 97.6 F Pulse Rate 92 H 98 H 93 H Respiratory Rate 16 Blood Pressure 155/71 H Pulse Oximetry 99 02/14/18 11:00 02/14/18 11:19 02/14/18 12:00 Temperature 97.6 F Pulse Rate 91 H 86 92 H Respiratory Rate 16 20 Blood Pressure 155/71 H Pulse Oximetry 99 02/14/18 13:00 02/14/18 14:00 02/14/18 15:00 Temperature 99.2 F Pulse Rate 90 84 81 Respiratory Rate 16 Blood Pressure 171/75 H Pulse Oximetry 96 02/14/18 16:00 02/14/18 17:00 Temperature Pulse Rate 104 H Respiratory Rate Blood Pressure 120/52 L Pulse Oximetry Intake & Output 02/13/18 02/14/18 02/14/18 18:59 06:59 18:59 Intake Total 1000 / 1000 680 / 680 1300 / 1300 Output Total 960 / 960 300 / 300 550 / 550 Balance 40 / 40 380 / 380 750 / 750 Weight 45.1 kg Intake: IV 200 / 200 100 / 100 Maxipime Inj 2,000 MG In NS Inj 200 / 200 100 / 100 100 ML @ 200 mls/hr IV.SIG Q12H DULCE Rx#:[id number] Oral 1000 / 1000 480 / 480 1200 / 1200 Output: Urine 960 / 960 300 / 300 550 / 550 Other: # Voids 1 # Incontinent Voids 1 Date of Last Bowel Movement 02/13/18 02/13/18 Narrative: GENERAL: middle aged woman alert and not in distress. HEENT:not pale,anicteric, oral mucous membranes moist CARDIOVASCULAR: Regular rate and rhythm without murmurs, gallops, or rubs. RESPIRATORY: equal but diminished air entry bilaterally, no wheezes. No rales. GASTROINTESTINAL: Abdomen soft, non-tender, nondistended. Normal active bowel sounds MUSCULOSKELETAL: Extremities without clubbing, cyanosis, or edema. NEURO: Alert & Oriented x4 to person, place, time, situation. Moves all ext x4 - Urinary Catheter Management Straight Cath placed during this visit: no Results - Labs CBC & Chem 7: 02/14/18 05:09 02/13/18 07:52 Laboratory Results - last 24 hr 02/13/18 02/13/18 02/14/18 18:02 23:27 05:09 WBC 14.5 H RBC 3.33 L Hgb 9.3 L Hct 29.2 L MCV 87.7 MCH 27.9 MCHC 31.8 L RDW 17.8 H Plt Count 150 MPV 10.0 Neut % (Auto) 88.3 H Lymph % (Auto) 3.5 L [place] % (Auto) 8.0 Eos % (Auto) 0.0 Baso % (Auto) 0.2 Neut # (Auto) 12.9 H Lymph # (Auto) 0.5 L [place] # (Auto) 1.2 H Eos # (Auto) 0.0 Baso # (Auto) 0.0 WBC Differential . Differential Comment Auto diff final POC Glucose 325 H 74 02/14/18 02/14/18 02/14/18 05:33 05:57 08:36 WBC RBC Hgb Hct MCV MCH MCHC RDW Plt Count MPV Neut % (Auto) Lymph % (Auto) [place] % (Auto) Eos % (Auto) Baso % (Auto) Neut # (Auto) Lymph # (Auto) [place] # (Auto) Eos # (Auto) Baso # (Auto) WBC Differential Differential Comment POC Glucose 63 L 91 205 H 02/14/18 02/14/18 11:44 17:02 WBC RBC Hgb Hct MCV MCH MCHC RDW Plt Count MPV Neut % (Auto) Lymph % (Auto) [place] % (Auto) Eos % (Auto) Baso % (Auto) Neut # (Auto) Lymph # (Auto) [place] # (Auto) Eos # (Auto) Baso # (Auto) WBC Differential Differential Comment POC Glucose 192 H 269 H Microbiology 02/10/18 13:17 Blood - Peripheral Aerobic Blood Culture - Preliminary No growth in 4 days 02/10/18 13:17 Blood - Peripheral Anaerobic Blood Culture - Preliminary No growth in 4 days 02/10/18 11:33 Blood - Peripheral Aerobic Blood Culture - Preliminary No growth in 4 days 02/10/18 11:33 Blood - Peripheral Anaerobic Blood Culture - Preliminary No growth in 4 days Assessment and Plan - Assessment (1) Respiratory failure requiring intubation Code(s): J96.90 - Respiratory failure, unspecified, unspecified whether with hypoxia or hypercapnia Status: Acute (2) Atrial fibrillation Code(s): I48.91 - Unspecified atrial fibrillation Status: Acute (3) HTN (hypertension) Code(s): I10 - Essential (primary) hypertension Status: Acute (4) Hyperlipidemia Code(s): E78.5 - Hyperlipidemia, unspecified Status: Acute (5) Diabetes Code(s): E11.9 - Type 2 diabetes mellitus without complications Status: Acute (6) Emphysema lung Code(s): J43.9 - Emphysema, unspecified Status: Acute (7) COPD (chronic obstructive pulmonary disease) Code(s): J44.9 - Chronic obstructive pulmonary disease, unspecified Status: Acute - Plan 1. 2 L O2 at HS and arrange home O2 2. Nebs q6h duoneb 3. O2 N/C 2 L prn.daytime 4. D/C Solumedrol 5. Diet soft low salt 6. Taper prednisone 20 mg daily 7. ambulate with help 8. Continue antibiotics PO (7) COPD (chronic obstructive pulmonary disease) Qualifiers: COPD type: COPD with acute exacerbation Qualified Code(s): J44.1 - Chronic obstructive pulmonary disease with (acute) exacerbation
[2018-02-14] MEDS: predniSONE 10 MG Tablet PO SCH (21:25)
[2018-02-14] MEDS: Enoxaparin Inj 40 MG/0.4 ML Syringe SQ SCH (21:25)
[2018-02-15] MEDS: Oral Hygiene Kit OROPHARYNG SCH ×4 (01:19→17:54)
[2018-02-15] MEDS: Insulin NovoLIN Regular Correctional Sugar Inj SQ SCH ×5 (01:19→23:56)
[2018-02-15] MEDS: Artificial Tears Opth Drops 15 ML Bottle EACH EYE SCH ×3 (01:20→17:54)
[2018-02-15] MEDS: Chlorhexidine 0.12% Oral Kit 15 ML UDC OROPHARYNG SCH ×2 (07:52→19:47)
[2018-02-15] MEDS: Famotidine 20 MG Tablet PO SCH ×2 (09:26→22:30)
[2018-02-15] MEDS: dilTIAZem 30 MG Tablet PO SCH ×4 (09:26→22:29)
[2018-02-15] MEDS: Gabapentin 300 MG Capsule PO SCH ×2 (09:26→22:29)
[2018-02-15] MEDS: levoFLOXacin 250 MG Tablet PO SCH (09:26)
[2018-02-15] MEDS: Digoxin 125 MCG Tablet PO SCH (09:27)
[2018-02-15] MEDS: predniSONE 10 MG Tablet PO SCH ×2 (09:27→22:29)
[2018-02-15] MEDS: Budesonide-Formoterol 160/4.5 MCG 6 GM Inhaler INH SCH ×2 (09:28→22:30)
[2018-02-15] MEDS: Senna/Docusate Sodium 8.6/50 MG Tablet PO SCH ×2 (09:28→22:30)
[2018-02-15] MEDS: Lisinopril 20 MG Tablet PO SCH ×2 (09:28→22:30)
[2018-02-15] MEDS: Insulin Detemir Inj 1,000 UNIT/10 ML Vial SQ SCH ×2 (09:29→22:29)
[2018-02-15] MEDS: LORazepam 0.5 MG Tablet PO PRN (16:15)
--- NOTE | 2018-02-15 18:47 | P.PN ---
Subjective Interval history: Up in room. On O2 2 L. SOB with exertion. No Chest pains. Physical Exam Vital signs: Vital Signs 02/14/18 20:00 02/14/18 21:31 02/14/18 21:32 Temperature 97.8 F Pulse Rate 98 H 80 Respiratory Rate 17 18 Blood Pressure 126/66 Pulse Oximetry 96 98 02/14/18 23:00 02/15/18 00:00 02/15/18 00:05 Temperature 97.7 F Pulse Rate 69 77 79 Respiratory Rate 19 16 Blood Pressure 138/59 L Pulse Oximetry 98 02/15/18 00:06 02/15/18 03:42 02/15/18 03:43 Temperature Pulse Rate 75 Respiratory Rate 17 Blood Pressure Pulse Oximetry 98 97 02/15/18 03:50 02/15/18 04:00 02/15/18 07:15 Temperature 97.6 F 97.9 F Pulse Rate 64 80 Respiratory Rate 18 20 18 Blood Pressure 110/53 L 98/57 L Pulse Oximetry 99 100 02/15/18 07:53 02/15/18 08:00 02/15/18 08:37 Temperature Pulse Rate 92 H 85 96 H Respiratory Rate 16 16 Blood Pressure Pulse Oximetry 99 93 L 02/15/18 09:35 02/15/18 11:29 02/15/18 11:58 Temperature 98.4 F Pulse Rate 77 81 Respiratory Rate 16 19 Blood Pressure 136/64 138/61 Pulse Oximetry 99 02/15/18 12:00 02/15/18 15:57 02/15/18 16:08 Temperature 98.5 F Pulse Rate 77 106 H 108 H Respiratory Rate 16 19 Blood Pressure 114/69 Pulse Oximetry 100 Intake & Output 02/14/18 02/15/18 02/15/18 18:59 06:59 18:59 Intake Total 1300 / 1300 Output Total 550 / 550 Balance 750 / 750 Weight 45.1 kg Intake: IV 100 / 100 Maxipime Inj 2,000 MG In NS Inj 100 / 100 100 ML @ 200 mls/hr IV.SIG Q12H DULCE Rx#:[id number] Oral 1200 / 1200 Output: Urine 550 / 550 Other: # Voids 2 2 # Incontinent Voids 1 Date of Last Bowel Movement 02/13/18 02/15/18 02/15/18 # Bowel Movements 1 Narrative: GENERAL: middle aged woman alert and not in distress. HEENT:not pale,anicteric, oral mucous membranes moist CARDIOVASCULAR: Regular rate and rhythm without murmurs, gallops, or rubs. RESPIRATORY: equal but diminished air entry bilaterally, occ wheeze heard. GASTROINTESTINAL: Abdomen soft, non-tender, nondistended. Normal active bowel sounds MUSCULOSKELETAL: Extremities without clubbing, cyanosis, or edema. NEURO: Alert & Oriented x4 to person, place, time, situation. Moves all ext x4 - Urinary Catheter Management Straight Cath placed during this visit: no Results - Labs CBC & Chem 7: 02/14/18 05:09 02/15/18 13:05 Laboratory Results - last 24 hr 02/14/18 02/15/18 02/15/18 21:34 00:57 05:36 POC Glucose 168 H 79 79 Random Glucose 02/15/18 02/15/18 02/15/18 12:30 12:39 13:05 POC Glucose 58 L 73 Random Glucose 95 02/15/18 18:24 POC Glucose 193 H Random Glucose Microbiology 02/10/18 13:17 Blood - Peripheral Aerobic Blood Culture - Final No growth in 5 days 02/10/18 13:17 Blood - Peripheral Anaerobic Blood Culture - Final No growth in 5 days 02/10/18 11:33 Blood - Peripheral Aerobic Blood Culture - Final No growth in 5 days 02/10/18 11:33 Blood - Peripheral Anaerobic Blood Culture - Final No growth in 5 days Assessment and Plan - Assessment (1) Respiratory failure requiring intubation Code(s): J96.90 - Respiratory failure, unspecified, unspecified whether with hypoxia or hypercapnia Status: Acute (2) Atrial fibrillation Code(s): I48.91 - Unspecified atrial fibrillation Status: Acute (3) HTN (hypertension) Code(s): I10 - Essential (primary) hypertension Status: Acute (4) Hyperlipidemia Code(s): E78.5 - Hyperlipidemia, unspecified Status: Acute (5) Diabetes Code(s): E11.9 - Type 2 diabetes mellitus without complications Status: Acute (6) Emphysema lung Code(s): J43.9 - Emphysema, unspecified Status: Acute (7) COPD (chronic obstructive pulmonary disease) Code(s): J44.9 - Chronic obstructive pulmonary disease, unspecified Status: Acute - Plan 1. 2 L O2 at HS and arrange home O2 2. Nebs tid duoneb 3. O2 N/C 2 L prn.daytime 4. Continue ceftin 500 mg BID X5 days 5. Diet regular 6. Prednisone 20 mg daily 7. OK to discharge with Home health. (7) COPD (chronic obstructive pulmonary disease) Qualifiers: COPD type: COPD with acute exacerbation Qualified Code(s): J44.1 - Chronic obstructive pulmonary disease with (acute) exacerbation
--- NOTE | 2018-02-15 21:16 | P.PNIM ---
Subjective Interval history: 67-year-old female with significant COPD admitted with respiratory failure COPD exacerbation, required intubation, and repeat intubation, finally improved transferred from ICU. Patient seen and examined, states she is doing better, remains on 2 L nasal cannula, states she is not on oxygen at home, states she still smokes at home. Generalized weakness, Physical Exam Vital signs: Last Vital Signs Temp 98.5 F 02/15/18 16:08 Pulse 104 H 02/15/18 19:49 Resp 20 02/15/18 19:49 BP 114/69 02/15/18 16:08 Pulse Ox 98 02/15/18 20:00 Intake & Output 02/13/18 02/14/18 02/15/18 02/16/18 06:59 06:59 06:59 06:59 Intake Total 930 / 930 1680 / 1680 1300 / 1300 Output Total 1260 / 1260 550 / 550 Balance 930 / 930 420 / 420 750 / 750 Weight 45.1 kg 45.1 kg 40.4 kg frail thin 67yo aaf aaox3 nad heart s1s2 reg ectopy lungs bilateral coarse wheeze w fair air movement, no retractions no sig increase wob abd soft nondt pos bs ext no edema emaciated, wasting Urinary Catheter Management Straight: Cath placed during this visit: no Results Labs CBC & Chem 7: 02/14/18 05:09 02/15/18 13:05 Labs: Microbiology 02/10/18 13:17 Blood - Peripheral Aerobic Blood Culture - Final No growth in 5 days 02/10/18 13:17 Blood - Peripheral Anaerobic Blood Culture - Final No growth in 5 days 02/10/18 11:33 Blood - Peripheral Aerobic Blood Culture - Final No growth in 5 days 02/10/18 11:33 Blood - Peripheral Anaerobic Blood Culture - Final No growth in 5 days Assessment and Plan (1) Respiratory failure requiring intubation: Code(s): J96.90 - Respiratory failure, unspecified, unspecified whether with hypoxia or hypercapnia Status: Acute (2) Atrial fibrillation: Code(s): I48.91 - Unspecified atrial fibrillation Status: Acute (3) HTN (hypertension): Code(s): I10 - Essential (primary) hypertension Status: Acute (4) Hyperlipidemia: Code(s): E78.5 - Hyperlipidemia, unspecified Status: Acute (5) Diabetes: Code(s): E11.9 - Type 2 diabetes mellitus without complications Status: Acute (6) Emphysema lung: Code(s): J43.9 - Emphysema, unspecified Status: Acute (7) COPD (chronic obstructive pulmonary disease): Code(s): J44.9 - Chronic obstructive pulmonary disease, unspecified Status: Acute Plan ACUTE HYPOXIC, HYPERCAPNIC RESPIRATORY FAILUE - failed bipap, failed extubation , reintubation, now improved extubated and stable on nc. ACUTE EXACERBATION SEVERE COPD - improving SUSPECTED PNA/LRTI on admit completed abx AFIB RVR resolved, CHRONIC AFIB on asa ANEMIA CHRONIC - stable no bleeding IDDM - uncontrolled due to steroids, cont iss, diet, nutrtion eval HTN ACCELERATED on admit better cont home meds SEVERE PROTEIN VLAD MALNUTRITION BMI LOW 15.8 PULMONARY CACHEXIA nutrtion TOBACCO abuse, nicotine addiction - nicoderm, cessation counseling dvt prophylaxis - lovenox disposition - home w hhc planning when stable 1-2 days. Progress Note: Quality VTE Deep Vein Thrombosis/Pulmonary Embolism Present on Admission: No _ (1) Atrial fibrillation Qualifiers: Atrial fibrillation type: (2) HTN (hypertension) Qualifiers: Hypertension type: (3) Hyperlipidemia Qualifiers: Hyperlipidemia type: (4) Diabetes Qualifiers: Diabetes mellitus type: Diabetes mellitus snf insulin use: Diabetes mellitus complication status: Diabetes mellitus complication detail: Diabetic retinopathy severity: Proliferative retinopathy type: Diabetes mellitus macular edema: Laterality: Chronic kidney disease stage: (5) Emphysema lung Qualifiers: Emphysema type: (6) COPD (chronic obstructive pulmonary disease) Qualifiers: COPD type: COPD with acute exacerbation Chronic bronchitis type: Emphysema type: Qualified Code(s): J44.1 - Chronic obstructive pulmonary disease with ( acute) exacerbation
[2018-02-15] MEDS: Enoxaparin Inj 40 MG/0.4 ML Syringe SQ SCH (22:28)
[2018-02-16] MEDS: Oral Hygiene Kit OROPHARYNG SCH ×3 (00:54→22:58)
[2018-02-16] MEDS: Artificial Tears Opth Drops 15 ML Bottle EACH EYE SCH ×3 (00:54→22:57)
[2018-02-16] MEDS: Insulin NovoLIN Regular Correctional Sugar Inj SQ SCH (05:53)
[2018-02-16] MEDS: dilTIAZem 30 MG Tablet PO SCH ×2 (09:49→22:59)
[2018-02-16] MEDS: predniSONE 10 MG Tablet PO SCH ×2 (09:49→22:53)
[2018-02-16] MEDS: Lisinopril 20 MG Tablet PO SCH ×2 (09:49→22:52)
[2018-02-16] MEDS: levoFLOXacin 250 MG Tablet PO SCH (09:49)
[2018-02-16] MEDS: Gabapentin 300 MG Capsule PO SCH ×2 (09:49→22:52)
[2018-02-16] MEDS: Digoxin 125 MCG Tablet PO SCH (09:49)
[2018-02-16] MEDS: LORazepam 0.5 MG Tablet PO PRN (09:50)
[2018-02-16] MEDS: Famotidine 20 MG Tablet PO SCH ×2 (09:50→22:52)
[2018-02-16] MEDS: Insulin Detemir Inj 1,000 UNIT/10 ML Vial SQ SCH ×2 (09:50→22:51)
[2018-02-16] MEDS: Budesonide-Formoterol 160/4.5 MCG 6 GM Inhaler INH SCH ×2 (09:51→23:02)
[2018-02-16] MEDS: Chlorhexidine 0.12% Oral Kit 15 ML UDC OROPHARYNG SCH ×2 (09:51→22:56)
[2018-02-16] MEDS: Senna/Docusate Sodium 8.6/50 MG Tablet PO SCH ×2 (09:52→22:52)
--- NOTE | 2018-02-16 14:24 | P.DIET ---
Nutritional Evaluation Type of nutrition evaluation: follow-up Nutrition consult regarding: Tube Feeding (TFing d/c'ed) Subjective Subjective Comments: Eating 100%. Objective - Diagnosis COPD Exacerbation - Objective % IBW: 88 (IBW: 115lbs) Body Weight Used for Calculations: Actual (46.1kg) Energy Needs - Lower Range (kCal/kg): 30 Energy Needs - Upper Range (kCal/kg): 35 Lower Limit kCal/kg (kCals): 1,383 Upper Limit kCal/kg (kCals): 1,614 Lower Limit Protein Factor (Grams per Kg): 1.2 Upper Limit Protein Factor (Grams per Kg): 1.4 Lower Protein Needs (Protein): 55 Upper Protein Needs (Protein): 69 Dietitian Reviewed in Medical Record: Current diet, Curent medications, Intake & Output, Labs, Medical history Diet Order: 1800 ADA Objective Comments: PMH: COPD, DM, HTN, HLD, Afib Assessment Assessment: Pt remains extubated and diet has been advanced. PO intake is good at this time. Pt is still at high nutrition risk 2' to low wt for ht with a BMI of 15.8. Will send Xu Samuel on trays for added nutrition. Labs, wts and clinical course reviewed. Recommendations: Continue diet as ordered Glucnicki Samuel tid RD following. Dietitian to Monitor: Lab values, Intake & Output, Diet tolerance, Weight change , PO Intake, Medical course
--- NOTE | 2018-02-16 19:02 | P.PNIM ---
Subjective Interval history: 67-year-old female with significant COPD admitted with respiratory failure COPD exacerbation, required intubation, and repeat intubation, finally improved transferred from ICU. Patient seen and examined, still weak and very sob w exertion but a little better Physical Exam Vital signs: Last Vital Signs Temp 97.9 F 02/16/18 15:42 Pulse 93 H 02/16/18 17:02 Resp 16 02/16/18 17:02 BP 152/67 H 02/16/18 15:42 Pulse Ox 99 02/16/18 17:02 Intake & Output 02/14/18 02/15/18 02/16/18 02/17/18 06:59 06:59 06:59 06:59 Intake Total 1680 / 1680 1300 / 1300 663 / 663 Output Total 1260 / 1260 550 / 550 Balance 420 / 420 750 / 750 663 / 663 Weight 45.1 kg 45.1 kg 40.4 kg thin emaciated 67yo aaf aaox3 nad pleasant heart s1s2 reg lungs improved air movment scattered wheeze better abd soft nondt pos bs ext no edema, no calf tenderness Urinary Catheter Management Straight: Cath placed during this visit: no Results Labs CBC & Chem 7: 02/14/18 05:09 02/15/18 13:05 Assessment and Plan (1) Respiratory failure requiring intubation: Code(s): J96.90 - Respiratory failure, unspecified, unspecified whether with hypoxia or hypercapnia Status: Acute (2) Atrial fibrillation: Code(s): I48.91 - Unspecified atrial fibrillation Status: Acute (3) HTN (hypertension): Code(s): I10 - Essential (primary) hypertension Status: Acute (4) Hyperlipidemia: Code(s): E78.5 - Hyperlipidemia, unspecified Status: Acute (5) Diabetes: Code(s): E11.9 - Type 2 diabetes mellitus without complications Status: Acute (6) Emphysema lung: Code(s): J43.9 - Emphysema, unspecified Status: Acute (7) COPD (chronic obstructive pulmonary disease): Code(s): J44.9 - Chronic obstructive pulmonary disease, unspecified Status: Acute Plan ACUTE HYPOXIC, HYPERCAPNIC RESPIRATORY FAILUE - failed bipap, failed extubation , reintubation, now improved extubated and stable on nc. ACUTE EXACERBATION SEVERE COPD - improving SUSPECTED PNA/LRTI on admit completed abx AFIB RVR resolved, CHRONIC AFIB on asa ANEMIA CHRONIC - stable no bleeding IDDM - uncontrolled due to steroids, cont iss, diet, nutrtion eval HTN ACCELERATED on admit better cont home meds SEVERE PROTEIN VLAD MALNUTRITION BMI LOW 15.8 PULMONARY CACHEXIA nutrtion TOBACCO abuse, nicotine addiction - nicoderm, cessation counseling dvt prophylaxis - lovenox disposition - rehab 1-2 d if improves Progress Note: Quality VTE Deep Vein Thrombosis/Pulmonary Embolism Present on Admission: No _ (1) Atrial fibrillation Qualifiers: Atrial fibrillation type: (2) HTN (hypertension) Qualifiers: Hypertension type: (3) Hyperlipidemia Qualifiers: Hyperlipidemia type: (4) Diabetes Qualifiers: Diabetes mellitus type: Diabetes mellitus [facility] insulin use: Diabetes mellitus complication status: Diabetes mellitus complication detail: Diabetic retinopathy severity: Proliferative retinopathy type: Diabetes mellitus macular edema: Laterality: Chronic kidney disease stage: (5) Emphysema lung Qualifiers: Emphysema type: (6) COPD (chronic obstructive pulmonary disease) Qualifiers: COPD type: COPD with acute exacerbation Chronic bronchitis type: Emphysema type: Qualified Code(s): J44.1 - Chronic obstructive pulmonary disease with ( acute) exacerbation
[2018-02-16] MEDS: Enoxaparin Inj 40 MG/0.4 ML Syringe SQ SCH (23:00)
[2018-02-17] MEDS: Oral Hygiene Kit OROPHARYNG SCH ×2 (01:09→04:54)
[2018-02-17] MEDS: Artificial Tears Opth Drops 15 ML Bottle EACH EYE SCH ×2 (01:10→08:21)
[2018-02-17] MEDS: Insulin NovoLIN Regular Correctional Sugar Inj SQ SCH ×2 (01:12→05:50)
[2018-02-17] MEDS: predniSONE 10 MG Tablet PO SCH (08:17)
[2018-02-17] MEDS: Famotidine 20 MG Tablet PO SCH (08:17)
[2018-02-17] MEDS: Lisinopril 20 MG Tablet PO SCH (08:17)
[2018-02-17] MEDS: dilTIAZem 30 MG Tablet PO SCH (08:18)
[2018-02-17] MEDS: Digoxin 125 MCG Tablet PO SCH (08:19)
[2018-02-17] MEDS: Chlorhexidine 0.12% Oral Kit 15 ML UDC OROPHARYNG SCH (08:20)
[2018-02-17] MEDS: Insulin Detemir Inj 1,000 UNIT/10 ML Vial SQ SCH (08:20)
[2018-02-17] MEDS: Senna/Docusate Sodium 8.6/50 MG Tablet PO SCH (08:21)
[2018-02-17] MEDS: Budesonide-Formoterol 160/4.5 MCG 6 GM Inhaler INH SCH (08:21)
[2018-02-17] MEDS: Gabapentin 300 MG Capsule PO SCH (08:23)
[2018-02-17 08:43] VITALS: PULSE 92; RESP 16; O2SAT 99
[2018-02-17 09:12] VITALS: BP 147/65; TEMP 98.2
--- NOTE | 2018-02-17 11:21 | P.DS ---
DS: Providers Date of admission: 02/02/18 19:45 Primary care physician: UNKNOWN Consults: 02/15/18 10:56 HUB Only Consult Order Routine Consulting Provider: Emily Diaz 02/16/18 12:49 HUB Only Consult Order Routine Consulting Provider: Mc Gonzales,Agency 02/02/18 15:06 Consult to Pulmonology Routine Consulting Provider: Wolf Prieto V Reason for Consultation: copd exacerbation Notified:: Service Spoke with:: JONATHAN Date Notified:: 02/02/18 Time Notified:: 15:11 Ordering Provider: CAPRICE 02/02/18 21:21 Consult to Cd Reactor Operator Stat Consulting Provider: John Bloom For STAT consult, spoke directly to:: Dr Bloom Reason for Consultation: respiratory failure , labored breathing discussed with Dr Bloom residential solar consultant Notified:: Service Spoke with:: atul verified to dr noemi cook Date Notified:: 02/02/18 Time Notified:: 21:39 Ordering Provider: CAPRICE 02/03/18 12:12 HUB Only Consult Order Routine Consulting Provider: Emily Daiz 02/08/18 13:35 HUB Only Consult Order Routine Consulting Provider: Rona Singh,Agency 02/12/18 09:40 Consult to Hospitalist Routine Consulting Provider: Velvet Everett Reason for Consultation: [place] of care in a.m 02/13. Admission with COPD exacerbation. Extubated times 4 days. Notified:: Service Spoke with:: PRASHANTH Date Notified:: 02/12/18 Time Notified:: 10:02 Ordering Provider: ALLYSON DS: Diagnosis Discharge Diagnosis (1) Respiratory failure requiring intubation: Status: Acute (2) Atrial fibrillation: Status: Acute (3) HTN (hypertension): Status: Acute (4) Hyperlipidemia: Status: Acute (5) Diabetes: Status: Acute (6) Emphysema lung: Status: Acute (7) COPD (chronic obstructive pulmonary disease): Status: Acute DS: Summary 67-year-old female with COPD admitted with hypercapnic hypoxic respiratory failure started on BiPAP transferred to the ICU and ultimately decompensated requiring emergent intubation. She was eventually extubated failed extubation and required reintubation and had continued slow improvement ultimately tolerating nasal cannula and transferred to the medical floor. Patient had generalized weakness and was seen by physical therapy who recommended rehab. She was weaned off of IV steroids and remained on nasal cannula with significant dyspnea on exertion. She tolerated oral steroids, was afebrile and otherwise stable for discharge to rehab for outpatient follow-up, pulmonology Recommended outpatient follow-up with pulmonary function testing. Discharge diagnosis: Acute hypoxic and hypercapnic respiratory failure Acute exacerbation of severe COPD Suspected pneumonia with lower respiratory tract infection Atrial fibrillation with rapid ventricular rates and chronic A. fib Chronic anemia Insulin-dependent diabetes Accelerated hypertension,/with hypertensive urgency Severe protein calorie malnutrition with low BMI of 15.8 Pulmonary cachexia Tobacco abuse/nicotine addiction Time spent discussing smoking cessation with patient: 3 to 10 minutes Time Spent with Patient Total time spent providing and/or coordinating discharge services: Greater than 30 minutes Status at Discharge Functional status at discharge: uses cane/walker Overall status at discharge: patient is not back to baseline Quality: VTE Deep Vein Thrombosis/Pulmonary Embolism Present on Admission: No Exam Narrative Exam Narrative: Emaciated well-developed 67-year-old -[place] female Pleasant awake alert oriented no acute distress, soft spoken timid, Heart S1-S2 regular with ectopy Lungs with much improved air movement, trace expiratory wheeze Abdomen soft nondistended positive bowel sounds Extremities, muscle wasting, atrophy, no edema peripheral pulses palpable Results Labs on day of discharge: Labs from last 24 hours 02/17/18 02/17/18 02/16/18 05:43 01:12 22:50 POC Glucose 160 H 175 H 234 H 02/16/18 02/16/18 18:01 13:02 POC Glucose 191 H 92 Impressions ITS Impressions Head MRI 02/08/18 00:00 CONCLUSION: 1. No acute intracranial abnormality. 2. Acute pansinusitis. Abdomen X-Ray 02/09/18 00:00 CONCLUSION: Malposition of the Dobbhoff tube tip which appears to be located within the right lower lobe bronchiole. This should be removed and re-placed into the stomach. Chest X-Ray 02/13/18 06:00 CONCLUSION: Hyperinflated lungs consistent with COPD. Discharge Plan Discharge Disposition Patient Disposition: 62 Rehab Inpatient Discharge Condition Condition: Stable Discharge Order Discharge Orders: Discharge Order (Routine); Ordered 02/17/18 Ordered By: Velvet Everett Physicians Team Primary Care Provider: UNKNOWN, Attending Provider: Velvet Everett Other Providers: Wolf Prieto V ; John Bloom ; [employer] ; [facility],Agency ; [facility] Rxs /Orders / Referrals /Forms Prescriptions: New acetaminophen 325 mg Tablet 650 mg PO Q6H PRN (Reason: Temp > 100.4) Qty: 0 RF: 0 ipratropium-albuterol 0.5 mg-3 mg(2.5 mg base)/3 mL Solution For Nebulization 1 amp NEB Q4HR NEB Qty: 0 RF: 0 albuterol sulfate 2.5 mg /3 mL (0.083 %) Solution For Nebulization 2.5 mg NEB Q2HR NEB PRN (Reason: Dyspnea) Qty: 0 RF: 0 polyvinyl alcohol [Artificial Tears (polyvin alc)] 1.4 % Drops 1 drop EACH EYE Q8H Qty: 0 RF: 0 lisinopril 20 mg Tablet 20 mg PO BID Qty: 0 RF: 0 lorazepam 0.5 mg Tablet 0.5 mg PO Q8H PRN (Reason: Anxiety) Qty: 6 RF: 0 gabapentin [Neurontin] 300 mg Capsule 300 mg PO BID Qty: 0 RF: 0 nitroglycerin [Nitro-Bid] 2 % Ointment 2 inch Topical Q6HR PRN (Reason: Sbp>165, Dbp>90) Qty: 0 RF: 0 digoxin 125 mcg Tablet 125 mcg PO DAILY Qty: 30 RF: 0 cefuroxime axetil 500 mg Tablet 500 mg PO Q12HR Qty: 14 RF: 0 budesonide-formoterol [Symbicort] 160-4.5 mcg/actuation Hfa Aerosol Inhaler 2 puff INH BID Qty: 1 RF: 0 prednisone 10 mg Tablet 10 mg PO DAILY Qty: 0 RF: 0 insulin regular human [Novolin R Regular U-100 Insuln] 100 unit/mL Solution subcut Q6HR Qty: 0 RF: 0 budesonide [Pulmicort] 0.5 mg/2 mL Suspension For Nebulization 0.5 mg NEB Q12HR NEB Qty: 1 RF: 0 Continue cyanocobalamin (vitamin B-12) [Vitamin B-12] 1,000 mcg Tablet 1,000 mcg PO WEEKLY RF: 0 aspirin [Aspir-81] 81 mg Tablet,Delayed Release (Dr/Ec) 81 mg PO DAILY RF: 0 pantoprazole [Protonix] 20 mg Tablet,Delayed Release (Dr/Ec) 20 mg PO DAILY RF: 0 albuterol sulfate 90 mcg/actuation Hfa Aerosol Inhaler 2 puff INHALATION Q4H PRN (Reason: Shortness Of Breath) RF: 0 fluticasone 50 mcg/actuation [place],Suspension 2 spray INTRANASAL DAILY RF: 0 insulin detemir U-100 [Levemir U-100 Insulin] 100 unit/mL Solution 8 unit SUB-Q BID RF: 0 ranitidine HCl 150 mg Capsule 150 mg PO DAILY RF: 0 diltiazem HCl 120 mg Tablet Extended Release 24 Hr 120 mg PO DAILY RF: 0 benzonatate [Tessalon Perles] 100 mg capsule 200 mg PO TID PRN (Reason: cough) Qty: 14 RF: 0 albuterol sulfate 2.5 mg /3 mL (0.083 %) solution for nebulization 1.25 mg INHALATION Q4-8H PRN (Reason: shortness of breath or wheezing) Qty: 75 RF: 0 Discontinued lisinopril 20 mg Tablet 20 mg PO DAILY RF: 0 digoxin [Digox] 250 mcg Tablet 0.25 mg PO DAILY RF: 0 gabapentin 300 mg Capsule 300 mg PO BID RF: 0 ibuprofen 600 mg Tablet 600 mg PO TID PRN (Reason: Acute Pain) RF: 0 albuterol sulfate [ProAir HFA] 90 mcg/actuation Hfa Aerosol Inhaler 1 puff INHALATION Q4-6H PRN (Reason: Respiratory Distress) RF: 0 ipratropium bromide [Atrovent HFA] 17 mcg/actuation Hfa Aerosol Inhaler 1 puff INHALATION Q6H RF: 0 budesonide-formoterol [Symbicort] 160-4.5 mcg/actuation Hfa Aerosol Inhaler 2 puff INHALATION BID RF: 0 azithromycin 250 mg tablet See Label Instructions .ROUTE .COMPLEX Qty: 6 RF: 0 albuterol sulfate [ProAir HFA] 90 mcg/actuation HFA aerosol inhaler 2 inh INHALATION Q4H PRN (Reason: shortness of breath or wheezing) Qty: 8 RF : 0 azithromycin 250 mg tablet 250 mg PO DAILY Qty: 6 RF: 0 Referrals: Wolf Prieto MD [Physician] - See Instructions ( Please call the physician 's office to book the appointment to be seen within [2 wks or as directed].) UNKNOWN, [Primary Care Provider] - See Instructions Status ED Status: Left Department Discharge Information Discharge Date/Time: 02/17/18 13:33
== END 2018-02-17 13:33 | DRG 207 ==
LOC: NEPE 04:30 → INTOOBSV 07:07 → NEDA 07:07 → HCIS 12:55 → HIMC 17:15 → HCIS 02-12 18:59 → N05 02-14 18:25
PROVIDERS: ADMIT Internal Medicine; ATTEND Internal Medicine
DX: F17.210 Nicotine dependence, cigarettes, uncomplicated; I95.9 Hypotension, unspecified; G93.41 Metabolic encephalopathy; I48.2 Chronic atrial fibrillation; I16.0 Hypertensive urgency; Z79.82 Long term (current) use of aspirin; J96.01 Acute respiratory failure with hypoxia; Z79.899 Other long term (current) drug therapy; E43 Unspecified severe protein-calorie malnutrition; J96.02 Acute respiratory failure with hypercapnia; E11.65 Type 2 diabetes mellitus with hyperglycemia; Z79.4 Long term (current) use of insulin; E87.0 Hyperosmolality and hypernatremia; E11.649 Type 2 diabetes mellitus with hypoglycemia without coma; I10 Essential (primary) hypertension; D64.9 Anemia, unspecified; E11.42 Type 2 diabetes mellitus with diabetic polyneuropathy; Z79.51 Long term (current) use of inhaled steroids; E78.5 Hyperlipidemia, unspecified; T38.0X5A Adverse effect of glucocorticoids and synthetic analogues, initial encounter; J44.1 Chronic obstructive pulmonary disease with (acute) exacerbation; Z68.1 Body mass index [BMI] 19.9 or less, adult; D69.6 Thrombocytopenia, unspecified
CPT/HCPCS: 31500; 36556; 36600; 70553; 71010; 71045; 74000; 74018; 76937; 80048; 80053; 80162; 82040; 82140; 82550; 82805; 82947; 82948; 82962; 83010; 83605; 83615; 83735; 84100; 84443; 85025; 85027; 87040; 87070; 87205; 87275; 87276; 87804; 90774; 90775; 90784; 92526; 92610; 93005; 94002; 94003; 94150; 94640; 94656; 94657; 94664; 94665; 94668; 95819; 96374; 96375; 97110; 97116; 97162; 97164; 97530; 99285; A9585; C8952; C9248; G0195; J0360; J0456; J0692; J0696; J1650; J1956; J2250; J2270; J2704; J2920; J2930; J3010; J7030; J7050; J7506; J7512